=== PATIENT | female | born 1960 | race Caucasian/White ===

== ENCOUNTER 2019-10-23 09:25 | Outpatient (CLI) | payer MEDICARE, OTHER, SELFPAY ==
[2019-11-06 15:49] LABS: Miscellaneous Test See Scanned Lab Rpt
== END 2019-10-23 09:26 | disposition home or self-care (01) ==
LOC: ONCMED 09:30
PROVIDERS: Visit Provider Nurse Practitioner
DX: C56.1 Malignant neoplasm of right ovary (principal)
CPT/HCPCS: 36415

== ENCOUNTER 2019-11-01 12:22 | Outpatient (CLI) | payer MEDICARE, OTHER, SELFPAY ==
[2019-11-01 14:23] LABS: Basophils # 0.1 10^3/uL (0.0-0.1); Basophils % 0.7 %; Eosinophils # 0.1 10^3/uL (0.0-0.8); Eosinophils % 1.6 %; Hematocrit 36.1 % (37.0-47.0); Hemoglobin 11.3 g/dL (11.5-15.3); Lymphocytes # 1.7 10^3/uL (0.8-4.8); Lymphocytes % 22.6 %; Mean Corpuscular HGB Conc 31.3 g/dL (30.0-36.0); Mean Corpuscular Hemoglobin 25.7 pg (28.0-34.0); Mean Platelet Volume 9.6 fL (7.4-10.4); Monocytes # 0.6 10^3/uL (0.2-0.9); Monocytes % 7.9 %; Neutrophils # 4.9 10^3/uL (1.8-7.7); Neutrophils % 66.8 %; Nucleated Red Blood Cells % 0 %; Platelet Count 238 10^3/cmm (130-400); Red Cell Distribution Width 14.8 % (12.1-15.1); White Blood Count 7.4 10^3/uL (4.0-10.0)
[2019-11-01 14:32] LABS: Alanine Aminotransferase 8 U/L (0-33); Albumin Level 4.5 g/dL (3.5-5.2); Alkaline Phosphatase 93 IU/L (35-105); Anion Gap 14.2 (5-19); Aspartate Amino Transferase 15 U/L (0-32); Blood Urea Nitrogen 10 mg/dL (8-23); Calcium 9.7 mg/Dl (8.8-10.2); Carbon Dioxide 28 mmol/L (22-29); Chloride 94 mmol/L (98-107); Globulin 3.1 g/dL (1.3-4.6); Glomerular Filtration Rate 72.9 mL/min (90-130); Glucose 88 mg/dL (74-106); Potassium 4.2 mmol/L (3.5-5.1); Sodium 132 mmol/L (136-145); Total Bilirubin 0.2 mg/dL (0.15-1.2); Total Protein 7.6 g/dL (6.6-8.7)
[2019-11-02 02:19] LABS: CA 125 28.7 U/mL (0-35)
--- NOTE | 2019-11-05 10:42 | ONC FU_ITS ---
Dr. Lynne Patient Follow-Up Note Patient: Nisreen Carrasco V Unit #: [id number]: 1960 Dicatated By: Ravi Lynne M.D.Date of Visit:Nov 01, 2019 Onc Med Follow-up/Prog Note Chief Complaint: Ovarian cancer History of Present Illness: This is a 59 year-old woman with recurrent ovarian cancer. She had optimal resection with her initial surgery back in May 2003. She had documented recurrence in July 2008, nearly 5 years after completion of adjuvant chemotherapy with 6 cycles of carboplatin/Taxol. She was retreated at that time with carboplatin/Taxol chemotherapy, but in combination with Avastin. Treatment was stopped after 4 cycles because of worsening neuropathy, but she did have a very good clinical response with normalization of the CA-125 level. She was then followed on observation. She did well until July 2012 when she presented with small bowel obstruction. Her Ca-125 level at that point had not increased and the obstruction initially did improve with conservative management. Ultimately, though, she was confirmed to have disease recurrence in the abdomen. She underwent surgery at [facility] in October 2012. At laparotomy there were extensive adhesions in the abdomen, but there was recurrent tumor in the right mid abdomen and right upper quadrant. It was involving the cecum, the mesocolon, and the small bowel mesentery in a multiple twisted mass. There also was periaortic juanita involvement. She underwent right hemicolectomy and primary anastamosis of the bowel with complete resection of the mass. 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 She had gradual recovery from that procedure. In February 2013 she restarted chemotherapy with carboplatin in combination with gemcitabine. She experienced a significant hypersensitivity reaction to the carboplatin with the third cycle of treatment. She then continued chemotherapy with single agent gemcitabine. She experienced significant fatigue and myelosuppression with gemcitabine, even at a reduced dose level. She did not tolerate an attempt at dose escalation. She had some ongoing GI symptoms during this time, but no documented disease progression. She had a followup visit with Dr. David in January 2014. Her disease at that time appeared stable, and it was recommended that she stop chemotherapy again and just go back on observation. By May 2015 she was having significantly more abdominal pain and repeat CT abdomen/pelvis at that point was highly suspicious for recurrent metastatic disease at the site of the ileocolic anastomosis. That study showed no obvious metastatic involvement in the liver and no ascites. In June 2015 she restarted chemotherapy with weekly paclitaxel. She initially was tolerating it pretty well on a day 1/day 8 schedule every 3 weeks. She had presented at day 15 of her third cycle with severe abdominal pain and nausea. Repeat CT scan showed increasing soft tissue at the ileocolic anastomosis. There was a large amount of fecal material proximal to that site, and an area of stenosis was suspected. She did improve, though, with conservative management, and she subsequently was able to continue chemotherapy with weekly paclitaxel. As of November 2015 she had completed 7 cycles of treatment. Her chemotherapy was put on hold after her cycle 8 day 1 treatment due to diarrhea and increased abdominal pain. Abdominal x-rays showed just nonspecific gas pattern in the left abdomen. She had restaging CT abdomen/pelvis again on 01/13/2016. It showed no obstruction and no evidence of disease progression. There was no lymphadenopathy or ascites noted. Her symptoms had subsequently improved, and she did then proceed with her 9th cycle of chemotherapy. Beginning with cycle 10, I did have her change to a day 1/day 15 schedule. She had subsequently tolerated it much better. As of her follow-up visit on 08/06/2016, she appeared stable clinically, and at that point she continued with her 16th cycle of treatment. Her day 15 treatment with that cycle was not administered. She continued treatment with cycle 18 day 1 on 10/01/2016. On 10/06/2016 she was admitted to the hospital with pneumonia. CT pulmonary angiogram at that time showed no evidence of pulmonary emboli. There were widespread tree-in-bud pulmonary parenchymal nodularities and there was evidence of underlying chronic emphysema. There was new hilar or mediastinal lymphadenopathy noted, possibly reactive or neoplastic. Also noted was a superior segment left lower lobe pulmonary nodule measuring 8.4 mm. She did improve on antibiotic therapy, and she was discharged home on 10/10/2016. She had quit smoking just prior to the hospitalization. She did not receive day 15 treatment with that cycle. During subsequent follow-up, I opted to keep her chemotherapy on hold, as her disease had been very stable. Restaging CT scans of the chest, abdomen, and pelvis on 04/28/2017 showed resolved hilar and mediastinal adenopathy and resolved left lower lobe pulmonary nodule. There was stable appearance of the ileocolic anastomosis. There was no evidence of disease progression. Her other medical illnesses include hypertension, hypercholesterolemia and gastroesophageal reflux disease. She also has chronic obstructive pulmonary disease and she had a pretty severe episode of pneumonia in December 2008. She had stopped smoking following her hospitalization in September. 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 Other surgeries have been limited to tonsillectomy and tubal ligation. INTERIM HISTORY: Restaging CT scans of the chest, abdomen, and pelvis on 11/16/2018 showed unchanged medial middle lobe parenchymal opacity measuring 8-9 mm. Lingular and anterior left lower lobe subsegmental atelectasis and/or scarring also appeared unchanged. There was no evidence of disease progression in the chest, abdomen, or pelvis. In February 2019 she had presented with new onset of swelling in the right leg. Venous Doppler of the right leg on 03/09/2019 showed partially occlusive deep vein thrombosis of the superficial femoral vein with thrombus noted to extend into the greater saphenous vein. She began on anticoagulation with apixaban. Restaging CT scans on 03/22/2019 showed stable 8-9 mm pulmonary nodule in the right middle lobe. Right hilar and infrahilar hilar lymph nodes also appeared stable. Moderate right hydronephrosis with right ureterectasis appeared to be new. Slightly prominent right inguinal lymph nodes appeared unchanged. Overall, there was no evidence of disease progression in the chest, abdomen, or pelvis. She continued on observation/expectant management. In April 2019 a next generation sequencing study was performed on the specimen from her surgical resection in October 2012. It showed presence of a BRCA1 mutation, presumed to be somatic, as her original germline BRCA testing was negative. There were no other actionable mutations identified. She had come in last week for a scheduled port flushed. At that time she reported increased abdominal pain, mainly in the right lower quadrant and right groin area. It was noted that her CA-125 level, though still in normal range, had been increasing. At that point it was up to 14.0 U/mL compared to 8.6 U/mL in October 2018. Repeat CT abdomen/pelvis on 06/22/2019 showed enlarging soft tissue mass in the right side of the pelvis measuring 3.5 cm. This was noted to be in the area of surgical clips from her prior hysterectomy, and the appearance was felt to be consistent with local recurrence or metastatic adenopathy. The mass was noted to be adjacent to and possibly invading the psoas muscle. There was increasing hydronephrosis of the right kidney. She was referred to Dr. David. On 07/18/2019 she underwent exploratory laparotomy with extensive adhesive lysis and extensive retroperitoneal exploration and debulking of right pelvic/psoas muscle tumor. The tumor was noted to obstruct the right ureter, and the procedure included placement of a right ureteral stent. Pathology showed high-grade carcinoma which was PAX-8 and WT-1 positive. She is seen for a follow-up visit. As yet she has not started any further treatment for the ovarian cancer, as she is still recovering from the surgery. She has not been feeling good. She complains that she has no energy. Activity remains very limited. ECOG score is 3. Her appetite is variable. She has not had fever, but she has had bad chills. She also reports having bad hot flashes. She says she has too much pain to do anything. She says her neuropathy has been bothering her really bad. She also continues to have pain with urination, and she says she hurts tremendously inside her belly. She also has pain in the right lower back area. She had been started on antibiotic for urinary tract infection, and that recently was changed to amoxicillin based on culture results, which showed Enterococcus faecalis. Medications: Amoxicillin 2 Capsule (of 500 mg) Oral b.i.d. for 7 days, Ativan 1 mg (of 1 mg) Tablet Oral at bedtime PRN, Duragesic-100 1 (100 mcg) Patch 72 Hr Transdermal q 3 days, Duragesic-25 1 (50 mcg/hr) Patch 72 Hr Transdermal q 72 hours, Enalapril Maleate 1 (20 mg) Tablet Oral b.i.d., Fluconazole 1 Tablet Oral daily on Every Other Day for 4 days, Gabapentin 1 Capsule (of 300 mg) Oral b.i.d., Lactulose Solution Oral PRN, Levothroid 1 (50 mcg) Tablet Oral daily, MiraLax Pack Oral daily, Mucinex Maximum Strength 1 Tablet (of 1200 mg) Tablet SR 12 HR Oral b.i.d. PRN, NexIUM 1 (40 mg) Capsule Delayed Release Oral b.i.d., OxyCODONE HCl 1 (20 mg) Tablet Oral four times a day PRN, Proventil HFA Aerosol, solution Inhalation PRN, TRAZADONE 1 (100 mg) Tablet Oral at bedtime, Venlafaxine HCl 1 (150 mg) Capsule SR 24 HR Oral daily, Xarelto 1 Tablet (of 10 mg) Oral daily Allergies: Carboplatin Review of Systems: Constitutional - She has no energy, and her activity is very limited. Appetite is variable. She has not had fever. She has bad hot flashes and sweating. ECOG score is 3, ENMT - She has sinus congestion/drainage. No mouth sores. No sore throat or difficulty swallowing, Hematologic/Lymphatic - She bruises easily, Respiratory - She has shortness of breath with activity. She is using oxygen at night. No cough. No pleuritic pain or hemoptysis, Cardiovascular - No angina pain. No palpitations, Gastrointestinal - No nausea or vomiting. Her acid reflux is managed with Nexium. She has abdominal pain and she has constipation. No blood in the stool or black stools, Genitourinary (F) - She has pain with urination. She has tremendous pain inside her belly, and she has pain in her right lower back area, Musculoskeletal - She also has chronic back pain, Integumentary - No skin complications, Neurologic - No headache. She sometimes has dizziness. Her neuropathy pain has been bad, Psychiatric - She has anxiety and depression. She has difficulty sleeping. Vital Signs: Performed on Nov 01, 2019 12:41 Height - 67.00 in Weight - 131.0 lbs (LOW) BSA - 1.69 sq.m BMI - 20.52 Temperature - 97.9 F (LOW) Pulse - 82 /min Respiration - 20 /min BP - 156/88 mm(hg) (HIGH) O2 Sat - 96 % Pain - 8 Physical Examination: Constitutional - She looks weaker, and she is in obvious discomfort, Eyes - Sclerae nonicteric. Conjunctivae clear, ENMT - There are no lesions noted in the oral cavity, Hematologic/Lymphatic - No cervical, clavicular, or axillary adenopathy, Respiratory - Lungs sound clear with diminished air movement bilaterally, Cardiovascular - Heart rhythm is regular. There is no murmur, gallop, or rub noted, Abdomen - Mildly distended. She has generalized abdominal tenderness. Liver and spleen are not enlarged. There is no abdominal mass or ascites noted. There is no inguinal adenopathy, Back/Spine - There is tenderness in the area of the costovertebral angle on the right side, Extremities - No edema, Neurologic - No focal neurologic deficits noted. Lab/Imaging: Test performed on Nov 01, 2019 13:45 Glucose 88 mg/dL BUN 10 mg/dL Creatinine 0.8 mg/dL Cr Clearance (Est) 69.27 mL/min Sodium 132 mmol/L Potassium 4.2 mmol/L Chloride 94 mmol/L CO2 28 mmol/L Calcium 9.7 mg/dL Protein, Total 7.6 g/dL Albumin 4.5 g/dL Bilirubin, Total 0.2 mg/dL Alkaline Phosphatase 93 IU/L AST (SGOT) 15 IU/L ALT (SGPT) 8 IU/L WBC 7.4 10^9/L RBC 4.40 10^12/L HGB 11.3 g/dL HCT 36.1 % MCV 82.0 fl MCH 25.7 pg MCHC 31.3 g/dL RDW 14.8 % Platelet Count 238 10^9/L MPV 9.6 fL Neutrophils (Gran) 4.9 10^9/L Lymphocytes 1.7 10^9/L Monocytes 0.6 10^9/L Eosinophils 0.1 10^9/L Basophils 0.1 10^9/L Manual Lymphocytes 22.6 % Manual Monocytes 7.9 % Manual Eosinophils 1.6 % Manual Basophils 0.7 % NRBCs 0.0 /100 WBC CA 125 28.7 Units/mL Impression: 1. The patient has recurrent ovarian cancer. By next generation sequencing her tumor was noted to harbor a BRCA1 mutation, presumed somatic, as her original testing for germline BRCA was negative. Her tumor also was tested and found to be MSI stable with intact mismatch repair proteins. 2. She had restarted chemotherapy with carboplatin/gemcitabine in February 2013 following a surgical debulking procedure. Her treatment was subsequently modified to single agent gemcitabine as a result of a hypersensitivity reaction to carboplatin. She did appear to have some response to the chemotherapy. As of January 2014 her disease was felt to be stable, and she was then observed off treatment. 3. In May 2015 she restarted chemotherapy with weekly paclitaxel. Following her cycle 18 treatment on 09/17/2016 she had another hospital admission for pneumonia. As her disease had been stable and her performance status had been declining, her chemotherapy at that point was put on hold. Her other medical illnesses include: 4. Hypertension. 5. Hyperlipidemia. 6. GERD. 7. COPD. 8. Degenerative disease of the spine with chronic back pain. 9. Chronic anxiety/depression. 10. She has nicotine dependence (cigarettes). During follow-up she has continued to have multiple chronic complaints, including abdominal pain and constipation along with fatigue, insomnia, back pain, and neuropathy from her previous chemotherapy. She also has significant underlying COPD, and she has been having chronic cystitis symptoms. In February 2019 she presented with swelling in the right leg, she was found to have deep vein thrombosis by venous Doppler. She has since then been on anticoagulation with apixaban. Her restaging CT scans in March 2019 showed no obvious disease progression in the chest, abdomen, or pelvis, but there was evidence of new moderate right hydronephrosis with dilatation of the right proximal ureter. She then presented recently with increased pain in the right lower quadrant of the abdomen and right groin area. There has been a gradual increase in her CA-125 level. Her repeat CT abdomen/pelvis on 06/22/2019 shows a 3.5 cm soft tissue mass in the right pelvis suspicious for local recurrence or lymphadenopathy, and there is also increasing right hydronephrosis. Overall, the findings were consistent with progression of the ovarian cancer. She was referred to Dr. David and on 07/18/2019 she underwent exploratory laparotomy with a decent lysis and with debulking of the right pelvic tumor. He tumor was obstructing the right ureter, and the procedure also included placement of a right ureteral stent. She has been showing gradual recovery from the surgery. At this point she continues have very limited activity. She is having significant pain, some component of which is likely related to a urinary tract infection. That issue is further complicated by the fact that she does have a ureteral stent in place. 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 Plan: She will continue amoxicillin for the urinary tract infection, and she also will continue empiric treatment with fluconazole. Dr. David's office will be contacted regarding further management for the ureteral stent. I am going to look into the possibility of transitioning her from gabapentin to Lyrica for the neuropathy pain. In the meantime, she will need to continue her regular pain regimen with fentanyl and immediate release oxycodone. Signed By: Ravi Lynne M.D. <<Signature on File>>
== END 2019-11-01 12:23 | disposition home or self-care (01) ==
LOC: ONCMED 12:22
PROVIDERS: Visit Provider Internal Medicine Medical Oncology
DX: C56.1 Malignant neoplasm of right ovary (principal); C79.89 Secondary malignant neoplasm of other specified sites; Z92.21 Personal history of antineoplastic chemotherapy; Z90.49 Acquired absence of other specified parts of digestive tract; Z87.01 Personal history of pneumonia (recurrent); I10 Essential (primary) hypertension; E78.00 Pure hypercholesterolemia, unspecified; K21.9 Gastro-esophageal reflux disease without esophagitis; J44.9 Chronic obstructive pulmonary disease, unspecified; G89.29 Other chronic pain; M19.90 Unspecified osteoarthritis, unspecified site; F41.8 Other specified anxiety disorders; N39.0 Urinary tract infection, site not specified; B95.2 Enterococcus as the cause of diseases classified elsewhere; E78.5 Hyperlipidemia, unspecified; F17.210 Nicotine dependence, cigarettes, uncomplicated; G89.3 Neoplasm related pain (acute) (chronic); G62.0 Drug-induced polyneuropathy; T45.1X5S Adverse effect of antineoplastic and immunosuppressive drugs, sequela; Z79.891 Long term (current) use of opiate analgesic; Z79.01 Long term (current) use of anticoagulants; Z79.899 Other long term (current) drug therapy; Z90.710 Acquired absence of both cervix and uterus; Z86.718 Personal history of other venous thrombosis and embolism; Z96.0 Presence of urogenital implants
CPT/HCPCS: 36591; 80053; 85025; 86304; 99214

== ENCOUNTER 2019-11-29 08:19 | Outpatient (CLI) | payer MEDICARE, OTHER, SELFPAY ==
--- NOTE | 2019-11-29 09:00 | XRR_ITS ---
PROCEDURE INFORMATION: Exam: XR Abdomen, 1 View Exam date and time: 11/29/2019 8:49 AM Age: 59 years old Clinical indication: Abd pain; Ureteral obstruction TECHNIQUE: Imaging protocol: XR of the abdomen. Views: Frontal supine view of the abdomen. 1 View. COMPARISON: XR ABDOMEN 08/23/2019 2:40 PM FINDINGS: Gastrointestinal tract: No dilated gas-filled loops of bowel. Organs: A right double-J stent is present with the proximal pigtail in the region of the right renal pelvis and the distal pigtail in the urinary bladder. There are 2 calcific densities projecting over the right kidney compatible with nephrolithiasis. The largest measures 5-6 mm in size not accounting for magnification. The left kidney is obscured by intestinal contents. Vasculature: There are retroperitoneal and bilateral pelvic surgical clips, perhaps from a prior lymph node dissection. Bones/joints: Degenerative changes present in the lower lumbar spine. XR/XR KUB [id number] IMPRESSION: 1. Right nephrolithiasis. 2. Right double-J stent as described.
== END 2019-11-29 08:20 | disposition home or self-care (01) ==
PROVIDERS: PCP Internal Medicine Medical Oncology; Visit Provider Urology
DX: N13.5 Crossing vessel and stricture of ureter without hydronephrosis (principal); N20.0 Calculus of kidney
CPT/HCPCS: 74018; 81001

== ENCOUNTER 2019-12-04 11:53 | Day surgery (SDC) | payer MEDICARE, OTHER, SELFPAY ==
[2019-12-04] VITALS (9 sets, daily range): BP systolic 116–162; BP diastolic 74–107; PULSE 78–95; RESP 14–20; TEMP 36.6–37.1; O2SAT 90–100; BMI 20.8
--- NOTE | 2019-12-04 | SCC_ITS ---
Procedure Done: Cystoscopy, removal of right ureteral stent, right ureteroscopy, replacement of right ureteral stent 34.2 seconds of fluoroscopic guidance, for a cumulative dose of 5.55 mGy, was provided to Dr. Cooper by the radiology department. C-arm images of the abdomen were saved for the patient's permanent record. [facility]
--- NOTE | 2019-12-04 11:54 | SC_ITS ---
WS: [id number] [facility] REASON FOR EXAM: Right ureteroscopy FINDINGS: RM images show a catheter in the region of the kidney transversing the ureter down to the b ladder. SC/[facility] IMPRESSION: C-arm images show the catheter in the urinary bladder coronal and itself and is seen in good position in the ureter.
[2019-12-04] MEDS: sodium chloride 0.9% 1,000 ML 30 ML IV (12:00)
--- NOTE | 2019-12-04 12:39 | ANES.PREANE2 ---
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 Proposed Procedure: Operation Date: 12/04/19 13:50 Proposed Procedures p Cystoscopy 93279 N13.30 N13.5(Not Applicable) - MD taqueria [place]ina Ureteral Stent Removal(Right) - MD taqueria [place]ina Flexible Ureteroscopy(Not Applicable) - MD taqueria [place] Ureteral Stent Placement(Not Applicable) - Jake Cooper MD Last intake: Intake Last Liquid Date 12/03/19 Last Liquid Time 18:00 Last Solid Date 12/03/19 Last Solid Time 18:00 Social: Social History: Tobacco and No alcohol Exam: Pre-Anes Outpt Exam: alert, oriented x 3, clear to auscultation bilaterally and regular rate & rhythm Airway: Submandibular: WNL Cervical ROM: WNL MP: 2 Dentition: Other (very poor teeth) History/ROS: No significant history except as noted Pulmonary: Pulmonary: COPD, Cough and NICOLAS Comments: O2 at night CV/HEM: CV/HEM: HTN : Comments: tumor obstructing Hepatic: Hepatic: None reported GI: GI: GERD (controlled) Metabolic: Metabolic: Thyroid Musc/skel: Musc/skel: Lower Back Pain and OA/DJD Neuropsych: Neuropsych: Anxiety and Depression Anesthetic Plan: ASA status: 3 Anesthesia: Anesthesia Evaluation and General Risk of > 500 ml blood loss (7ml/kg in children): No PFSH Anesthesia PFSH: Medical History Extrinsic ureteral obstruction Hydronephrosis, right Ovarian cancer on right Pelvic pain in female Recurrent UTI Secondary malignant neoplasm of other specified sites Surgical History History of hysterectomy with bilateral oophorectomy History of right hemicolectomy Family History Other CAD (coronary artery disease) Cancer Hypertension Social History Smoking and tobacco status: current every day smoker Alcohol intake: never Adopted: No Caregiver/support person: No Lives independently: No Household members: spouse Marital status: Current occupational status: disabled History of recent travel: No Female Reproductive History: Date of last menstrual period: 12/01/19 Data Anesthesia Cardiac Studies: No Data to Display
--- NOTE | 2019-12-04 14:35 | W.PM.OPSUD ---
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 Since resected. PLANNED PROCEDURE: Operation Date: 12/04/19 13:50 Proposed Procedures p Cystoscopy 04648 N13.30 N13.5(Not Applicable) - Jake Cooper MD s Ureteral Stent Removal(Right) - Jake Cooper MD s Flexible Ureteroscopy(Not Applicable) - Jake Cooper MD s Ureteral Stent Placement(Not Applicable) - Jake Cooper MD
[2019-12-04] MEDS: levofloxacin-dextrose 5 % 500 MG/100 ML PREMIX 100 MG IV (14:38)
--- NOTE | 2019-12-04 15:30 | P.OP_ITS ---
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 At time of incomplete resection of the tumor I delayed nephrostogram demonstrating obstruction post resection and a antegrade stent was placed. I was consulted for further evaluation of the stent. She has had a lot of discomfort that she relates to the stent. We reviewed the option of converting to a nephrostomy tube, removal of the stent if the ureter looked healthy enough on ureteroscopy, etc. Procedure: After routine preoperative evaluation examination and obtaining of informed consent she was taken to the operating suite on 12/04/2019 where general anesthesia was administered without difficulty after appropriate timeout was performed, SCDs confirmed to be functioning, preoperative antibiotics administered, beta-priya protocol confirmed. Prepped and draped in the usual sterile fashion in dorsolithotomy position pain careful attention to avoiding pressure points. The 21 [place] cystoscope with 30 degree lens was introduced into the urethral meatus and advanced into the bladder under videoscopy. The bladder was systematically examined. The stent was not encrusted. A flexible tip guidewire was then advanced up the right ureter next to the stent but could not be advanced beyond about the level of the pelvic vessels. Several attempts were made unsuccessfully. A zip wire/glide wire was then utilized with the same result. The distal aspect of the stent was then grasped and removed just to the outside of the urethral meatus and a flexible tip guidewire was then advanced up the stent easily into the renal pelvis. The stent was removed. A flexible ureterorenoscope was then advanced over the guidewire and at the area previously described as the portion of the ureter with involvement of the tumor the scope could not easily be advanced. There was significant inflammatory change in this area. Visualization was less than perfect. It did become clear though quickly that removal of the stent did not appear to be an acceptable option. The ureteroscope was then removed off the guidewire and the cystoscope backloaded over the guidewire. A 6 [place] multilength 22 x 30 stent was advanced over the guidewire through the cystoscope and appropriate position is confirmed via fluoroscopy and cystoscopy The bladder was drained after confirming the stent was functioning well. She tolerated procedure well without complications. Was awakened in the operating room and returned to the recovery in stable condition.
== END 2019-12-04 16:45 | disposition home or self-care (01) ==
PROVIDERS: PCP Internal Medicine Medical Oncology; Visit Provider Urology
PROC: 0TJB8ZZ Inspection of Bladder, Via Natural or Artificial Opening Endoscopic (ICD-10-PCS; CPT 52000; principal; 2019-12-04 13:50)
PROC: (CPT 52310; 2019-12-04 13:50)
PROC: 0TJ98ZZ Inspection of Ureter, Via Natural or Artificial Opening Endoscopic (ICD-10-PCS; CPT 52351; 2019-12-04 13:50)
PROC: (CPT 50605; 2019-12-04 13:50)
DX: N20.1 Calculus of ureter (principal); Z82.49 Family history of ischemic heart disease and other diseases of the circulatory system; F17.210 Nicotine dependence, cigarettes, uncomplicated; J44.9 Chronic obstructive pulmonary disease, unspecified; I10 Essential (primary) hypertension; M19.90 Unspecified osteoarthritis, unspecified site; K21.9 Gastro-esophageal reflux disease without esophagitis
CPT/HCPCS: 52332; 52351; 12345; 76000; C2625; J1956; J2001; J2405; J2704; J3010; J7030

== ENCOUNTER 2019-12-12 08:25 | Outpatient (RCR) | payer MEDICARE, OTHER, SELFPAY ==
[2019-11-28] MEDS: alteplase 1 mg/mL SDV 2 mL 2 MG IV (14:51)
[2019-11-28 15:13] LABS: Basophils # 0.1 10^3/uL (0.0-0.1); Basophils % 0.7 %; Eosinophils # 0.2 10^3/uL (0.0-0.8); Eosinophils % 2.4 %; Hematocrit 38.1 % (37.0-47.0); Hemoglobin 11.8 g/dL (11.5-15.3); Lymphocytes # 2.3 10^3/uL (0.8-4.8); Lymphocytes % 27.2 %; Mean Corpuscular Hemoglobin 25.7 pg (28.0-34.0); Mean Platelet Volume 9.8 fL (7.4-10.4); Monocytes # 0.7 10^3/uL (0.2-0.9); Monocytes % 7.9 %; Neutrophils # 5.1 10^3/uL (1.8-7.7); Neutrophils % 61.6 %; Nucleated Red Blood Cells % 0 %; Platelet Count 237 10^3/cmm (130-400); Red Blood Count 4.59 10^6/uL (4.1-5.3); Red Cell Distribution Width 14.8 % (12.1-15.1); White Blood Count 8.3 10^3/uL (4.0-10.0)
[2019-11-28 15:30] LABS: Alanine Aminotransferase 8 U/L (0-33); Alkaline Phosphatase 88 IU/L (35-105); Anion Gap 17.2 (5-19); Aspartate Amino Transferase 16 U/L (0-32); Blood Urea Nitrogen 9 mg/dL (8-23); Calcium 9.6 mg/dL (8.5-10.5); Carbon Dioxide 28 mmol/L (22-29); Chloride 91 mmol/L (98-107); Globulin 3.6 g/dL (1.3-4.6); Glomerular Filtration Rate 85.1 mL/min (90-130); Glucose 113 mg/dL (65-115); Potassium 4.2 mmol/L (3.5-5.1); Sodium 132 mmol/L (136-145); Total Bilirubin 0.2 mg/dL (0.15-1.2); Total Protein 7.6 g/dL (6.6-8.7)
--- NOTE | 2019-11-28 15:48 | ONC FU_ITS ---
[facility] Patient Note Patient: Nisreen Carrasco V Unit #: [id number]: [id number] Dictated By: Daniella JacobsenDate of Visit: Nov 28, 2019 Onc MED Follow-Up/Prog Note Chief Complaint: Ovarian cancer History of Present Illness: Mrs Carrasco is a 59 year-old woman with recurrent ovarian cancer. She had optimal resection with her initial surgery back in May 2003. She had documented recurrence in July 2008, nearly 5 years after completion of adjuvant chemotherapy with 6 cycles of carboplatin/Taxol. She was retreated at that time with carboplatin/Taxol chemotherapy, but in combination with Avastin. Treatment was stopped after 4 cycles because of worsening neuropathy, but she did have a very good clinical response with normalization of the CA-125 level. She was then followed on observation. She did well until July 2012 when she presented with small bowel obstruction. Her Ca-125 level at that point had not increased and the obstruction initially did improve with conservative management. Ultimately, though, she was confirmed to have disease recurrence in the abdomen. She underwent surgery at [facility] in October 2012. At laparotomy there were extensive adhesions in the abdomen, but there was recurrent tumor in the right mid abdomen and right upper quadrant. It was involving the cecum, the mesocolon, and the small bowel mesentery in a multiple twisted mass. There also was periaortic juanita involvement. She underwent right hemicolectomy and primary anastamosis of the bowel with complete resection of the mass. 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 She had gradual recovery from that procedure. In February 2013 she restarted chemotherapy with carboplatin in combination with gemcitabine. She experienced a significant hypersensitivity reaction to the carboplatin with the third cycle of treatment. She then continued chemotherapy with single agent gemcitabine. She experienced significant fatigue and myelosuppression with gemcitabine, even at a reduced dose level. She did not tolerate an attempt at dose escalation. She had some ongoing GI symptoms during this time, but no documented disease progression. She had a followup visit with Dr. David in January 2014. Her disease at that time appeared stable, and it was recommended that she stop chemotherapy again and just go back on observation. By May 2015 she was having significantly more abdominal pain and repeat CT abdomen/pelvis at that point was highly suspicious for recurrent metastatic disease at the site of the ileocolic anastomosis. That study showed no obvious metastatic involvement in the liver and no ascites. In June 2015 she restarted chemotherapy with weekly paclitaxel. She initially was tolerating it pretty well on a day 1/day 8 schedule every 3 weeks. She had presented at day 15 of her third cycle with severe abdominal pain and nausea. Repeat CT scan showed increasing soft tissue at the ileocolic anastomosis. There was a large amount of fecal material proximal to that site, and an area of stenosis was suspected. She did improve, though, with conservative management, and she subsequently was able to continue chemotherapy with weekly paclitaxel. As of November 2015 she had completed 7 cycles of treatment. Her chemotherapy was put on hold after her cycle 8 day 1 treatment due to diarrhea and increased abdominal pain. Abdominal x-rays showed just nonspecific gas pattern in the left abdomen. She had restaging CT abdomen/pelvis again on 01/13/2016. It showed no obstruction and no evidence of disease progression. There was no lymphadenopathy or ascites noted. Her symptoms had subsequently improved, and she did then proceed with her 9th cycle of chemotherapy. Beginning with cycle 10, I did have her change to a day 1/day 15 schedule. She had subsequently tolerated it much better. As of her follow-up visit on 08/06/2016, she appeared stable clinically, and at that point she continued with her 16th cycle of treatment. Her day 15 treatment with that cycle was not administered. She continued treatment with cycle 18 day 1 on 10/01/2016. On 10/06/2016 she was admitted to the hospital with pneumonia. CT pulmonary angiogram at that time showed no evidence of pulmonary emboli. There were widespread tree-in-bud pulmonary parenchymal nodularities and there was evidence of underlying chronic emphysema. There was new hilar or mediastinal lymphadenopathy noted, possibly reactive or neoplastic. Also noted was a superior segment left lower lobe pulmonary nodule measuring 8.4 mm. She did improve on antibiotic therapy, and she was discharged home on 10/10/2016. She had quit smoking just prior to the hospitalization. She did not receive day 15 treatment with that cycle. During subsequent follow-up, I opted to keep her chemotherapy on hold, as her disease had been very stable. Restaging CT scans of the chest, abdomen, and pelvis on 04/28/2017 showed resolved hilar and mediastinal adenopathy and resolved left lower lobe pulmonary nodule. There was stable appearance of the ileocolic anastomosis. There was no evidence of disease progression. Her other medical illnesses include hypertension, hypercholesterolemia and gastroesophageal reflux disease. She also has chronic obstructive pulmonary disease and she had a pretty severe episode of pneumonia in December 2008. She had stopped smoking following her hospitalization in September. 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 Other surgeries have been limited to tonsillectomy and tubal ligation. INTERIM HISTORY: Restaging CT scans of the chest, abdomen, and pelvis on 11/16/2018 showed unchanged medial middle lobe parenchymal opacity measuring 8-9 mm. Lingular and anterior left lower lobe subsegmental atelectasis and/or scarring also appeared unchanged. There was no evidence of disease progression in the chest, abdomen, or pelvis. In February 2019 she had presented with new onset of swelling in the right leg. Venous Doppler of the right leg on 03/09/2019 showed partially occlusive deep vein thrombosis of the superficial femoral vein with thrombus noted to extend into the greater saphenous vein. She began on anticoagulation with apixaban. Restaging CT scans on 03/22/2019 showed stable 8-9 mm pulmonary nodule in the right middle lobe. Right hilar and infrahilar hilar lymph nodes also appeared stable. Moderate right hydronephrosis with right ureterectasis appeared to be new. Slightly prominent right inguinal lymph nodes appeared unchanged. Overall, there was no evidence of disease progression in the chest, abdomen, or pelvis. She continued on observation/expectant management. In April 2019 a next generation sequencing study was performed on the specimen from her surgical resection in October 2012. It showed presence of a BRCA1 mutation, presumed to be somatic, as her original germline BRCA testing was negative. There were no other actionable mutations identified. She had come in last week for a scheduled port flushed. At that time she reported increased abdominal pain, mainly in the right lower quadrant and right groin area. It was noted that her CA-125 level, though still in normal range, had been increasing. At that point it was up to 14.0 U/mL compared to 8.6 U/mL in October 2018. Repeat CT abdomen/pelvis on 06/22/2019 showed enlarging soft tissue mass in the right side of the pelvis measuring 3.5 cm. This was noted to be in the area of surgical clips from her prior hysterectomy, and the appearance was felt to be consistent with local recurrence or metastatic adenopathy. The mass was noted to be adjacent to and possibly invading the psoas muscle. There was increasing hydronephrosis of the right kidney. She was referred to Dr. David. On 07/18/2019 she underwent exploratory laparotomy with extensive adhesive lysis and extensive retroperitoneal exploration and debulking of right pelvic/psoas muscle tumor. The tumor was noted to obstruct the right ureter, and the procedure included placement of a right ureteral stent. Pathology showed high-grade carcinoma which was PAX-8 and WT-1 positive. Mrs Carrasco is here today for a follow-up visit and possible initiation of Lynparza. Maria E has not started any further treatment for the ovarian cancer, as she has still been recovering from the surgery. She had been started on antibiotic for urinary tract infection, and that recently was changed to amoxicillin based on culture results, which showed Enterococcus faecalis. She has had on going urinary tract infections symptoms despite being on the antibotic. She states she is currently on Macrobid. She states the urinary pain has gotten significantly worse, especially with urination. And she states that she feels that there is a little new fluid in her lower abdomen area which she attributes to the urinary stent. She states that the only position she can get in to get any comfort relief now is lying down sometimes that does not even help. She continues to have chronic pain otherwise. She states that she does not feel her current pain medication is relieving her symptoms. She states overall everything just feels worse. She is had some intermittent chills and undocumented fever. She denies any nausea or vomiting. She has no improvement in her appetite. It continues to be very marginal. Her performance status continues to be very marginal as well. She states she does take a bowel medicine to have her bowels moving daily due to the narcotics, but is stable for her. She denies any mouth sores or trouble swallowing. She states she is so uncomfortable from the stent that it is hard to focus on anything else. She is agreeable to adjustments in her pain medication. Her ECOG is 3. Past Medical History: Chronic back pain (secondary to ruptured discs) Depression Peripheral neuropathy in 2008 Hypothyroidism in 2007 Chronic obstructive pulmonary disease in 2006 Anxiety in 2002 Coronary artery disease in 2002 Hypercholesterolemia in 2002 Hypertension in 2002 Gastroesophageal reflux disease in 2002 Past Surgical History: Stent placement in the ureter Flu vaccine in 2019 - left deltoid Prevnar 13 in 2019 - right deltoid Pneumovax in 2015 Flu vaccine in 2015 Right subclavian Port in 2015 Flu vaccine in 2014 Flu in 2013 COLONOSCOPY in 2007 Appendectomy in 2002 Hysterectomy in 2002 - WITH BSO PORT PLACEMENT in 2002 Tubal ligation in 1991 Tonsillectomy in 1964 Allergies: Carboplatin Medications: Ativan 1 mg (of 1 mg) Tablet Oral at bedtime PRN Duragesic-100 1 (100 mcg) Patch 72 Hr Transdermal q 3 days Duragesic-25 1 (50 mcg/hr) Patch 72 Hr Transdermal q 72 hours Enalapril Maleate 1 (20 mg) Tablet Oral b.i.d. Lactulose Solution Oral PRN Levothroid 1 (50 mcg) Tablet Oral daily Lyrica 1 Capsule (of 75 mg) Oral b.i.d. Macrobid 1 Capsule (of 100 mg) Oral b.i.d. MiraLax Pack Oral daily Mucinex Maximum Strength 1 Tablet (of 1200 mg) Tablet SR 12 HR Oral b.i.d. PRN NexIUM 1 (40 mg) Capsule Delayed Release Oral b.i.d. OxyCODONE HCl 1 (20 mg) Tablet Oral four times a day PRN Proventil HFA Aerosol, solution Inhalation PRN TRAZADONE 1 (100 mg) Tablet Oral at bedtime Venlafaxine HCl 1 (150 mg) Capsule SR 24 HR Oral daily Xarelto 1 Tablet (of 10 mg) Oral daily Family History: Ms. Carrasco's mother at age 59: cancer history consists of Breast cancer at age 28 while other medical history includes [place] at age 57 (cause of ). Ms. Carrasco's father is alive. Ms. Carrasco does not know if her maternal grandmother is alive. She does not know if her maternal grandfather is alive. Ms. Carrasco has 1 brother who is alive. Social History: Ms. Carrasco is and she is an on disability. She is an occasional smoker who has smoked 0.5 packs/day for 30 years. She is a former drinker. She has indicated exposure to the following products: cigarettes. Ms. Carrasco reports the following support systems: lives with spouse, significant other, family, or friends, lives in own house, supportive family/friends willing to assist with needs, and adequate transportation available for expected visits. Her diet consists of regular meals. She indicates her activity level as: daily activities. she smokes 5 cigaretter per day and has an e cigarette. Review Of Symptoms: Constitutional Denies any fever. States having nights sweats-chronic and stable. Allergic/Immunologic No reactions. Eyes Denies significant visual changes. No diplopia. No amaurosis. ENMT Denies changes in hearing, sore throat, mouth sores, difficulty or changes in swallowing ability, and/or sinus drainage. Hematologic/Lymphatic Denies easy bruising or bleeding. The patient denies any tender or palpable lymph nodes. Breasts Denies breast masses, nipple discharge, nipple inversion and pain. Respiratory non productive cough-stable and continued shortness of breath. Wears oxygen supplementation with activity. Cardiovascular Denies anginal chest pain, palpitations or orthopnea. Gastrointestinal Denies nausea, vomiting, diarrhea, GI bleeding. Has chronic constipation, has prescription laxative. Denies change in bowel habits and/or stool color, no heartburn or early satiety. Genitourinary (F) No hematuria, hesitancy, incontinence, vaginal bleeding, discharge or other problems with urination. Musculoskeletal Denies joint swelling or redness. No decreased range of motion. States having generalized joint pain-chronic. Current pain regimen is not controlling her pain. She states she thinks this is most likely related to the bladder symptoms and urinary stent Integumentary Denies chronic rashes, inflammation, ulcerations or skin changes. Neurologic Denies any no areas of focal weakness or numbness. Normal gait. No sensory problems.. back and leg pain-chronic and no worse than her normal. Psychiatric Denies worsening depression, denies any stephanie or mood swings. Vital Signs: Performed on Nov 28, 2019 12:47 Height - 67.00 in Weight - 133.6 lbs (HIGH) BSA - 1.70 sq.m BMI - 20.92 Temperature - 97.8 F (LOW) Pulse - 83 /min Respiration - 24 /min BP - 165/84 mm(hg) (HIGH) O2 Sat - 93 % (LOW) Pain - 8,2 - Ambulatory/capable of all self-care, unable to perform any work activities. Up and about more than 50% of waking hours. (ECOG) Physical Examination: Constitutional Alert, oriented, no acute distress. Skin pink, warm and dry. Frail in appearance but she is wearing make up. Head Normocephalic; atraumatic. Eyes Conjunctivae and sclerae are clear and without icterus. Pupils are reactive and equal. Neck Supple without masses or thyromegaly. No jugular venous distension. Hematologic/Lymphatic No petechiae or purpura. No tender or palpable lymph nodes in the cervical, supraclavicular areas. Chest Chest is symmetric without chest wall deformities. Venous access device insertion site is unremarkable. Abdomen Non-tender, non-distended, no masses, ascites. Back/Spine Non-tender to palpation. Extremities No visible deformities, no cyanosis, clubbing. No lower extremity edema. Musculoskeletal No tenderness or swelling, normal range of motion without obvious weakness. Integumentary No rashes or lesions. Neurologic No sensory or motor deficits, normal cerebellar function, normal gait. Psychiatric Alert and oriented times three. Coherent speech. Verbalizes understanding of our discussions today. Laboratory:Test performed on Nov 28, 2019 14:30 Sodium 132 mmol/L Potassium 4.2 mmol/L Chloride 91 mmol/L CO2 28 mmol/L Anion Gap 17.2 BUN 9 mg/dL Creatinine 0.7 mg/dL Cr Clearance (Est) 80.7400 mL/min eGFR 85.1 mL/min Glucose 113 mg/dL Calcium 9.6 mg/dL Protein, Total 7.6 g/dL Albumin 4.0 g/dL Globulin 3.6 g/dL Bilirubin, Total 0.2 mg/dL ALT (SGPT) 8 U/L AST (SGOT) 16 U/L Alkaline Phosphatase 88 IU/L WBC 8.3 10 3/uL RBC 4.59 10 6/uL HGB 11.8 g/dL HCT 38.1 % MCV 83.0 fL MCH 25.7 pg MCHC 31.0 g/dL RDW 14.8 % Platelet Count 237 10 3/cmm MPV 9.8 fL Neutrophils 5.1 10 3/uL Lymphocytes 2.3 10 3/uL Monocytes 0.7 10 3/uL Eosinophils 0.2 10 3/uL Basophils 0.1 10 3/uL Neutrophil % 61.6 % Lymphocyte % 27.2 % Monocyte % 7.9 % Eosinophil % 2.4 % Basophils % 0.7 % Test performed on Nov 01, 2019 13:45 Manual Lymphocytes 22.6 % Manual Monocytes 7.9 % Manual Eosinophils 1.6 % Manual Basophils 0.7 % NRBCs 0.0 /100 WBC CA 125 28.7 Units/mL Test performed on Aug 23, 2019 14:18 Ua Color YELLOW Ua Appearance SL HAZY Ua Glucose NORM Ua Bilirubin NEG Colored urine samples may result in false positive dipstick reactions. Ua Ketones NEG Ua Specific [place] 1.005 Ua Blood 2+ Ua pH 7 Ua Protein NEG Ua Nitrites NEG Ua Leukocyte Esterase TRACE Ua Micro: WBC 25-40 /hpf Urine Culture ORGANISM 1: ENTEROCOCCUS FAECALIS COLONY COUNT 10,000 - 20,000 ENTEROCOCCUS FAECALIS: REACTION AMPICILLIN <=2 S CIPROFLOXACIN <=1 S NITROFURANTOIN <=32 S PENICILLIN 2 S VANCOMYCIN 2 S LEVOFLOXACIN 2 S LINEZOLID 2 S DAPTOMYCIN 2 S CFU/ml Ua Micro: RBC 5-10 /hpf Ua Micro: Squam Epith Cells 0-4 /hpf Ua Micro: Bacteria TRACE Impression: 1. The patient has recurrent ovarian cancer. By next generation sequencing her tumor was noted to harbor a BRCA1 mutation, presumed somatic, as her original testing for germline BRCA was negative. Her tumor also was tested and found to be MSI stable with intact mismatch repair proteins. 2. She had restarted chemotherapy with carboplatin/gemcitabine in February 2013 following a surgical debulking procedure. Her treatment was subsequently modified to single agent gemcitabine as a result of a hypersensitivity reaction to carboplatin. She did appear to have some response to the chemotherapy. As of January 2014 her disease was felt to be stable, and she was then observed off treatment. 3. In May 2015 she restarted chemotherapy with weekly paclitaxel. Following her cycle 18 treatment on 09/17/2016 she had another hospital admission for pneumonia. As her disease had been stable and her performance status had been declining, her chemotherapy at that point was put on hold. Her other medical illnesses include: 4. Hypertension. 5. Hyperlipidemia. 6. GERD. 7. COPD. 8. Degenerative disease of the spine with chronic back pain. 9. Chronic anxiety/depression. 10. She has nicotine dependence (cigarettes). During follow-up she has continued to have multiple chronic complaints, including abdominal pain and constipation along with fatigue, insomnia, back pain, and neuropathy from her previous chemotherapy. She also has significant underlying COPD, and she has been having chronic cystitis symptoms. In February 2019 she presented with swelling in the right leg, she was found to have deep vein thrombosis by venous Doppler. She has since then been on anticoagulation with apixaban. Her restaging CT scans in March 2019 showed no obvious disease progression in the chest, abdomen, or pelvis, but there was evidence of new moderate right hydronephrosis with dilatation of the right proximal ureter. She then presented recently with increased pain in the right lower quadrant of the abdomen and right groin area. There has been a gradual increase in her CA-[address] abdomen/pelvis on 06/22/2019 shows a 3.5 cm soft tissue mass in the right pelvis suspicious for local recurrence or lymphadenopathy, and there is also increasing right hydronephrosis. Overall, the findings were consistent with progression of the ovarian cancer. She was referred to Dr. David and on 07/18/2019 she underwent exploratory laparotomy with a decent lysis and with debulking of the right pelvic tumor. He tumor was obstructing the right ureter, and the procedure also included placement of a right ureteral stent. She has been showing gradual recovery from the surgery. At this point she continues have very limited activity. She is having significant pain, some component of which is likely related to a urinary tract infection. That issue is further complicated by the fact that she does have a ureteral stent in place. 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 Plan: 1. She will see Dr Cooper tomorrow morning after she [place] [facility] [place] at 9 [place]. 2. Plan to start Lynparza next week-depending on outcome of the Dr Cooper visit tomorrow. 3. I requested baseline labs today to include cbc, CMP, CA 125. (Was 28.7 on May 01, 2020. And May 23, 2019 it was 12.4.) 4. We will try to bump her fentanyl to 200 mcg every 72 hours. She is currently 150 mcg. Subject to insurance approval. 5. We have increased her oxycodone 30 mg to 1 or 2 every 4-6 hours as needed pain with instructions to try to 4 times daily as needed for pain. 7. We have also increased her Lyrica to 150 twice daily. 8. We discussed that there have been multiple medication changes all of which could induce sedation. If she has trouble with sedation I have asked her to back off on the Lyrica to begin with and then the oxycodone or fentanyl as seems fit. 9. When she starts a Lynparza will have her do weekly labs. She does have a venous access device but traveling may be somewhat of an issue for her. We will set her up with in-home labs which will be done peripherally. She is aware and is agreeable at this time. 10. Follow-up will be determined after we see what the plan of care is after her visit with Dr. Cooper tomorrow. I would like to give her a few days to recover from the UTI symptoms if they are improved with removal of the stent. 11. I anticipate starting her Lynparza (olaparib) the week of December 04, 2019. 12. Side effects discussed with use of PARP inhibitors include peripheral edema, fatigue, headaches, dizziness UTI symptoms. Also we discussed that this may lower her blood counts including absolute neutrophil count, anemia, and thrombocytopenia. She may have some generalized body aches as well. Respiratory tract infections/nasopharyngitis/rhinitis/sinusitis were also noted. Chances of pulmonary embolism and venous thrombosis were both less than or equal to 1%. 13. Mrs. Carrasco was instructed to call us after her appointment Dr. santosorrambrosio and will determine when she can start the Lynparza and we will need follow-up labs. She verbalized understanding had no questions at this time. Signed By: Daniella Jacobsen-, [facility] Ravi Lynne MD <<Signature on File>>
[2019-11-28 16:47] LABS: Magnesium 1.8 mg/dL (1.7-2.3)
[2019-11-28 16:56] LABS: CA 125 30.4 U/mL (0-35)
--- NOTE | 2019-12-12 08:45 | CT_ITS ---
WS: [id number] CT ABDOMEN AND PELVIS WITH CONTRAST HISTORY: PAIN, OVARIAN CANCER TECHNIQUE: Imaging performed of the abdomen and pelvis with IV contrast. Single phase imaging of the abdomen. Coronal and sagittal reformats are submitted. All CT scans at [facility] use at least one of these dose optimization techniques: automated exposure control; mA and/or kV adjustment per patient size (includes targeted exams where dose is matched to clinical indication); or iterativ e reconstruction. IV CONTRAST: Omnipaque 300; 95 mL IV. Oral contrast: Yes. DLP: 1013.3 mGycm COMPARISON: 06/22/2019, 03/22/2019, 11/16/2018 Lower thorax: Mild dependent changes at the lung bases. No pneumonia. Heart is normal size. No hiatal hernia. Liver/biliary system: Liver is normal size. There is mild intrahepatic duct dilatation which was pres ent on the prior study. Gallbladder: Normal. No gallstones or wall thickening. No pericholecystic fluid. Pancreas: Markedly atrophic pancreas. Very poorly visualized pancreas. Spleen: Normal. Adrenal glands: Normal. Right kidney: Moderate atrophy of the RIGHT kidney. Enhancement of the cortex is still present. There is a RIGHT ureteral stent catheter coiled in the pelvis and normally positioned along the RIGHT uret er. The previously described obstruction has resolved. Left kidney: Normal. Aorta: Mild atherosclerosis with no aneurysm. Lymphadenopathy: Significant increase in size of the solid mass with variable density centered in the RIGHT pelvis. RIGHT ureter is being encased by this mass and the mass invades into the psoas muscle. Mass extends to abut the L5-S1 disc space. Mass now measures 5.8 x 3.8 x 6.5 cm and has increased in size. There are multiple prior surgical clips adjacent to the mass. Distal small bowel is being elev ated by the mass. There are several loops of small bowel closely associated with the mass. Free fluid: None. GI tract: There is extensive constipation. There is mild wall thickening near the anastomotic sutures in the midline from prior colon resection. Abdominal wall: Unremarkable abdominal wall. No hernia. Pelvis: RIGHT ureteral pigtail catheter coiled in the pelvis. There is no free fluid or adenopathy id entified. There are small benign appearing inguinal lymph nodes. Bones: Degenerative disc disease at L5-S1. CT/CT abdomen pelvis w con* [id number] IMPRESSION: 1. Progression of the RIGHT pelvic mass since 06/22/2019. There is a large mass in the RIGHT pelvis now measuring 5.8 x 3.8 x 6.5 cm. Mass encases the RIGHT ur eter and is inseparable from the distal small bowel loops and abuts the RIGHT L 5-S1 disc space. Probably representing a local recurrence versus metastatic sit e. 2. Interval placement of a RIGHT ureteral stent with resolution of the RIGHT h ydronephrosis. RIGHT renal atrophy now present. 3. Mild soft tissue thickening near the anastomotic sutures in the mid abdomen . 4. No ascites.
[2019-12-12] MEDS: iohexol 300 mg/mL 50 mL Btl PO (09:57)
[2019-12-12] MEDS: iohexol 300 mg/mL 100 mL Btl IV (10:14)
== END 2019-12-16 23:59 | disposition home or self-care (01) ==
LOC: RADWPI 08:25
PROVIDERS: Nurse Practitioner; Visit Provider Internal Medicine Medical Oncology
DX: C56.1 Malignant neoplasm of right ovary (principal); C79.89 Secondary malignant neoplasm of other specified sites; G89.29 Other chronic pain; R10.31 Right lower quadrant pain; N39.0 Urinary tract infection, site not specified; B95.2 Enterococcus as the cause of diseases classified elsewhere; N26.1 Atrophy of kidney (terminal); G62.0 Drug-induced polyneuropathy; T45.1X5D Adverse effect of antineoplastic and immunosuppressive drugs, subsequent encounter; I10 Essential (primary) hypertension; E78.5 Hyperlipidemia, unspecified; K21.9 Gastro-esophageal reflux disease without esophagitis; J44.9 Chronic obstructive pulmonary disease, unspecified; M47.9 Spondylosis, unspecified; F41.8 Other specified anxiety disorders; F17.210 Nicotine dependence, cigarettes, uncomplicated; Z86.718 Personal history of other venous thrombosis and embolism; Z79.01 Long term (current) use of anticoagulants; Z96.0 Presence of urogenital implants; Z79.891 Long term (current) use of opiate analgesic; Z79.899 Other long term (current) drug therapy; Z79.2 Long term (current) use of antibiotics
CPT/HCPCS: 36591; 36593; 74177; 80053; 81001; 83735; 85025; 86304; 96374; 99214; J2997; Q9967

== ENCOUNTER 2020-01-16 06:38 | Outpatient (RCR) | payer MEDICARE, OTHER, SELFPAY ==
[2019-12-26 17:39] LABS: Basophils % 0.8 %; Eosinophils # 0.2 10^3/uL (0.0-0.8); Eosinophils % 3.3 %; Hematocrit 35.6 % (37.0-47.0); Lymphocytes # 1.4 10^3/uL (0.8-4.8); Mean Corpuscular HGB Conc 30.9 g/dL (30.0-36.0); Mean Corpuscular Hemoglobin 25.9 pg (28.0-34.0); Mean Platelet Volume 9.9 fL (7.4-10.4); Monocytes # 0.4 10^3/uL (0.2-0.9); Neutrophils # 3.1 10^3/uL (1.8-7.7); Neutrophils % 60.7 %; Nucleated Red Blood Cells % 0 %; Platelet Count 197 10^3/cmm (130-400); Red Blood Count 4.24 10^6/uL (4.1-5.3); Red Cell Distribution Width 15.9 % (12.1-15.1); White Blood Count 5.2 10^3/uL (4.0-10.0)
[2019-12-26 17:56] LABS: Alanine Aminotransferase 7 U/L (0-33); Albumin Level 3.9 g/dL (3.5-5.2); Alkaline Phosphatase 81 IU/L (35-105); Anion Gap 15.2 (5-19); Aspartate Amino Transferase 16 U/L (0-32); Blood Urea Nitrogen 6 mg/dL (8-23); Calcium 9.4 mg/dL (8.5-10.5); Carbon Dioxide 30 mmol/L (22-29); Chloride 87 mmol/L (98-107); Globulin 3.6 g/dL (1.3-4.6); Glomerular Filtration Rate 85.1 mL/min (90-130); Glucose 100 mg/dL (65-115); Osmolality Calculated 260 mOsm/kg (285-295); Potassium 5.2 mmol/L (3.5-5.1); Sodium 127 mmol/L (136-145); Total Bilirubin 0.3 mg/dL (0.15-1.2); Total Protein 7.5 g/dL (6.6-8.7)
[2019-12-26 19:58] LABS: CA 125 32.8 U/mL (0-35)
[2020-01-02 12:03] LABS: Basophils # 0.1 10^3/uL (0.0-0.1); Basophils % 0.9 %; Eosinophils # 0.2 10^3/uL (0.0-0.8); Eosinophils % 2.8 %; Hematocrit 33.8 % (37.0-47.0); Hemoglobin 10.7 g/dL (11.5-15.3); Lymphocytes # 1.4 10^3/uL (0.8-4.8); Lymphocytes % 25.9 %; Mean Corpuscular HGB Conc 31.7 g/dL (30.0-36.0); Mean Corpuscular Hemoglobin 25.8 pg (28.0-34.0); Mean Corpuscular Volume 81.4 fL (81-99); Mean Platelet Volume 9.7 fL (7.4-10.4); Monocytes # 0.4 10^3/uL (0.2-0.9); Monocytes % 7.1 %; Neutrophils # 3.4 10^3/uL (1.8-7.7); Neutrophils % 63.1 %; Nucleated Red Blood Cells % 0 %; Platelet Count 181 10^3/cmm (130-400); Red Blood Count 4.15 10^6/uL (4.1-5.3); Red Cell Distribution Width 16.5 % (12.1-15.1); White Blood Count 5.4 10^3/uL (4.0-10.0)
[2020-01-02 12:18] LABS: Alanine Aminotransferase 8 U/L (0-33); Albumin Level 4.3 g/dL (3.5-5.2); Alkaline Phosphatase 75 IU/L (35-105); Anion Gap 13.2 (5-19); Aspartate Amino Transferase 16 U/L (0-32); Blood Urea Nitrogen 8 mg/dL (8-23); Calcium 9.3 mg/dL (8.5-10.5); Carbon Dioxide 31 mmol/L (22-29); Chloride 89 mmol/L (98-107); Globulin 2.9 g/dL (1.3-4.6); Glomerular Filtration Rate 85.1 mL/min (90-130); Glucose 105 mg/dL (65-115); Osmolality Calculated 264 mOsm/kg (285-295); Potassium 4.2 mmol/L (3.5-5.1); Sodium 129 mmol/L (136-145); Total Bilirubin 0.2 mg/dL (0.15-1.2); Total Protein 7.2 g/dL (6.6-8.7)
--- NOTE | 2020-01-06 22:17 | ONC FU_ITS ---
[facility] Patient Note Patient: Nisreen Carrasco V Unit #: [id number]: [id number] Dictated By: Daniella JacobsenDate of Visit: Jan 02, 2020 Onc MED Follow-Up/Prog Note Chief Complaint: Ovarian cancer History of Present Illness: Mrs Carrasco is a 59 year-old woman with recurrent ovarian cancer. She had optimal resection with her initial surgery back in May 2003. She had documented recurrence in July 2008, nearly 5 years after completion of adjuvant chemotherapy with 6 cycles of carboplatin/Taxol. She was retreated at that time with carboplatin/Taxol chemotherapy, but in combination with Avastin. Treatment was stopped after 4 cycles because of worsening neuropathy, but she did have a very good clinical response with normalization of the CA-125 level. She was then followed on observation. She did well until July 2012 when she presented with small bowel obstruction. Her Ca-125 level at that point had not increased and the obstruction initially did improve with conservative management. Ultimately, though, she was confirmed to have disease recurrence in the abdomen. She underwent surgery at [facility] in October 2012. At laparotomy there were extensive adhesions in the abdomen, but there was recurrent tumor in the right mid abdomen and right upper quadrant. It was involving the cecum, the mesocolon, and the small bowel mesentery in a multiple twisted mass. There also was periaortic juanita involvement. She underwent right hemicolectomy and primary anastamosis of the bowel with complete resection of the mass. 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 She had gradual recovery from that procedure. In February 2013 she restarted chemotherapy with carboplatin in combination with gemcitabine. She experienced a significant hypersensitivity reaction to the carboplatin with the third cycle of treatment. She then continued chemotherapy with single agent gemcitabine. She experienced significant fatigue and myelosuppression with gemcitabine, even at a reduced dose level. She did not tolerate an attempt at dose escalation. She had some ongoing GI symptoms during this time, but no documented disease progression. She had a followup visit with Dr. David in January 2014. Her disease at that time appeared stable, and it was recommended that she stop chemotherapy again and just go back on observation. By May 2015 she was having significantly more abdominal pain and repeat CT abdomen/pelvis at that point was highly suspicious for recurrent metastatic disease at the site of the ileocolic anastomosis. That study showed no obvious metastatic involvement in the liver and no ascites. In June 2015 she restarted chemotherapy with weekly paclitaxel. She initially was tolerating it pretty well on a day 1/day 8 schedule every 3 weeks. She had presented at day 15 of her third cycle with severe abdominal pain and nausea. Repeat CT scan showed increasing soft tissue at the ileocolic anastomosis. There was a large amount of fecal material proximal to that site, and an area of stenosis was suspected. She did improve, though, with conservative management, and she subsequently was able to continue chemotherapy with weekly paclitaxel. As of November 2015 she had completed 7 cycles of treatment. Her chemotherapy was put on hold after her cycle 8 day 1 treatment due to diarrhea and increased abdominal pain. Abdominal x-rays showed just nonspecific gas pattern in the left abdomen. She had restaging CT abdomen/pelvis again on 01/13/2016. It showed no obstruction and no evidence of disease progression. There was no lymphadenopathy or ascites noted. Her symptoms had subsequently improved, and she did then proceed with her 9th cycle of chemotherapy. Beginning with cycle 10, I did have her change to a day 1/day 15 schedule. She had subsequently tolerated it much better. As of her follow-up visit on 08/06/2016, she appeared stable clinically, and at that point she continued with her 16th cycle of treatment. Her day 15 treatment with that cycle was not administered. She continued treatment with cycle 18 day 1 on 10/01/2016. On 10/06/2016 she was admitted to the hospital with pneumonia. CT pulmonary angiogram at that time showed no evidence of pulmonary emboli. There were widespread tree-in-bud pulmonary parenchymal nodularities and there was evidence of underlying chronic emphysema. There was new hilar or mediastinal lymphadenopathy noted, possibly reactive or neoplastic. Also noted was a superior segment left lower lobe pulmonary nodule measuring 8.4 mm. She did improve on antibiotic therapy, and she was discharged home on 10/10/2016. She had quit smoking just prior to the hospitalization. She did not receive day 15 treatment with that cycle. During subsequent follow-up, I opted to keep her chemotherapy on hold, as her disease had been very stable. Restaging CT scans of the chest, abdomen, and pelvis on 04/28/2017 showed resolved hilar and mediastinal adenopathy and resolved left lower lobe pulmonary nodule. There was stable appearance of the ileocolic anastomosis. There was no evidence of disease progression. Her other medical illnesses include hypertension, hypercholesterolemia and gastroesophageal reflux disease. She also has chronic obstructive pulmonary disease and she had a pretty severe episode of pneumonia in December 2008. She had stopped smoking following her hospitalization in September. 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 Other surgeries have been limited to tonsillectomy and tubal ligation. INTERIM HISTORY: Restaging CT scans of the chest, abdomen, and pelvis on 11/16/2018 showed unchanged medial middle lobe parenchymal opacity measuring 8-9 mm. Lingular and anterior left lower lobe subsegmental atelectasis and/or scarring also appeared unchanged. There was no evidence of disease progression in the chest, abdomen, or pelvis. In February 2019 she had presented with new onset of swelling in the right leg. Venous Doppler of the right leg on 03/09/2019 showed partially occlusive deep vein thrombosis of the superficial femoral vein with thrombus noted to extend into the greater saphenous vein. She began on anticoagulation with apixaban. Restaging CT scans on 03/22/2019 showed stable 8-9 mm pulmonary nodule in the right middle lobe. Right hilar and infrahilar hilar lymph nodes also appeared stable. Moderate right hydronephrosis with right ureterectasis appeared to be new. Slightly prominent right inguinal lymph nodes appeared unchanged. Overall, there was no evidence of disease progression in the chest, abdomen, or pelvis. She continued on observation/expectant management. In April 2019 a next generation sequencing study was performed on the specimen from her surgical resection in October 2012. It showed presence of a BRCA1 mutation, presumed to be somatic, as her original germline BRCA testing was negative. There were no other actionable mutations identified. She had come in last week for a scheduled port flushed. At that time she reported increased abdominal pain, mainly in the right lower quadrant and right groin area. It was noted that her CA-125 level, though still in normal range, had been increasing. At that point it was up to 14.0 U/mL compared to 8.6 U/mL in October 2018. Repeat CT abdomen/pelvis on 06/22/2019 showed enlarging soft tissue mass in the right side of the pelvis measuring 3.5 cm. This was noted to be in the area of surgical clips from her prior hysterectomy, and the appearance was felt to be consistent with local recurrence or metastatic adenopathy. The mass was noted to be adjacent to and possibly invading the psoas muscle. There was increasing hydronephrosis of the right kidney. She was referred to Dr. David. On 07/18/2019 she underwent exploratory laparotomy with extensive adhesive lysis and extensive retroperitoneal exploration and debulking of right pelvic/psoas muscle tumor. The tumor was noted to obstruct the right ureter, and the procedure included placement of a right ureteral stent. Pathology showed high-grade carcinoma which was PAX-8 and WT-1 positive. Mrs Carrasco is here today for a follow-up visit of Lynparza. She was able to start her medication on . She has tolerated it well thus far. She states overall she feels really good. She states that she is tolerating the Lynparza well. Her only complaint is that things taste weird for about 3 hours after she takes it . She denies any mouth sores, sore throat or difficulty swallowing. She denies any acid reflux. She is had no diarrhea. She continues to have chronic constipation which is controlled with her prescription laxatives and [id number] additives as needed. She denies any new pain she states that her pain seems be well controlled with her current pain regimen. Her activity is still very limited due to shortness of breath. She denies any nausea or vomiting. She has had no fever or chills or any signs of infection for at least the last 72 hours. She has not been around anyone that has been sick. She states overall she thinks she is doing well and is tolerating the Lynparza so far. She states that she has just read an article in the cure magazine that Avastin with the Lynparza has had good results for ovarian cancer. She is advised we will check into this and see if it something that would be covered by her insurance. It may be considered experimental at this point but we will check into it for her. Her ECOG remains at 2. Past Medical History: Chronic back pain (secondary to ruptured discs) Depression Peripheral neuropathy in 2008 Hypothyroidism in 2007 Chronic obstructive pulmonary disease in 2006 Anxiety in 2002 Coronary artery disease in 2002 Hypercholesterolemia in 2002 Hypertension in 2002 Gastroesophageal reflux disease in 2002 Past Surgical History: Stent placement in the ureter Flu vaccine in 2018 - left deltoid Prevnar 13 in 2019 - right deltoid Pneumovax in 2015 Flu vaccine in 2015 Right subclavian Port in 2015 Flu vaccine in 2014 Flu in 2013 COLONOSCOPY in 2007 Appendectomy in 2002 Hysterectomy in 2002 - WITH BSO PORT PLACEMENT in 2002 Tubal ligation in 1991 Tonsillectomy in 1964 Allergies: Carboplatin Medications: Ativan 1 mg (of 1 mg) Tablet Oral at bedtime PRN Duragesic-100 2 Patch(es) (of 100 mcg) Patch 72 Hr Transdermal q 3 days Enalapril Maleate 1 (20 mg) Tablet Oral b.i.d. Lactulose Solution Oral PRN Levothroid 1 (50 mcg) Tablet Oral daily Lyrica 1 Capsule (of 75 mg) Oral b.i.d. Macrobid 1 Capsule (of 100 mg) Oral b.i.d. MiraLax Pack Oral daily Mucinex Maximum Strength 1 Tablet (of 1200 mg) Tablet SR 12 HR Oral b.i.d. PRN NexIUM 1 (40 mg) Capsule Delayed Release Oral b.i.d. OxyCODONE HCl 1 (20 mg) Tablet Oral q 4 hours PRN Proventil HFA Aerosol, solution Inhalation PRN Soma 1 (350 mg) Tablet Oral t.i.d. TRAZADONE 1 (100 mg) Tablet Oral at bedtime Venlafaxine HCl 1 (150 mg) Capsule SR 24 HR Oral daily Xarelto 1 Tablet (of 10 mg) Oral daily Family History: Ms. Carrasco's mother at age 59: cancer history consists of Breast cancer at age 28 while other medical history includes AK at age 57 (cause of ). Ms. Carrasco's father is alive. Ms. Carrasco does not know if her maternal grandmother is alive. She does not know if her maternal grandfather is alive. Ms. Carrasco has 1 brother who is alive. Social History: Ms. Carrasco is and she is an on disability. She is an occasional smoker who has smoked 0.5 packs/day for 30 years. She is a former drinker. She has indicated exposure to the following products: cigarettes. Ms. Carrasco reports the following support systems: lives with spouse, significant other, family, or friends, lives in own house, supportive family/friends willing to assist with needs, and adequate transportation available for expected visits. Her diet consists of regular meals. She indicates her activity level as: daily activities. she smokes 5 cigaretter per day and has an e cigarette. Review Of Symptoms: Constitutional Denies any fever. States having nights sweats-chronic and stable. Taste is off a little-things taste weird . Allergic/Immunologic No reactions. Eyes Denies significant visual changes. No diplopia. No amaurosis. ENMT Denies changes in hearing, sore throat, mouth sores, difficulty or changes in swallowing ability, and/or sinus drainage. Hematologic/Lymphatic Denies easy bruising or bleeding. The patient denies any tender or palpable lymph nodes. Respiratory non productive cough-stable and continued shortness of breath. Wears oxygen supplementation with activity. Cardiovascular Denies anginal chest pain, palpitations or orthopnea. Gastrointestinal Denies nausea, vomiting, diarrhea, GI bleeding. Has chronic constipation, has prescription laxative. Denies change in bowel habits and/or stool color, no heartburn or early satiety. Genitourinary (F) No hematuria, hesitancy, incontinence, vaginal bleeding, discharge or other problems with urination. Musculoskeletal Denies joint swelling or redness. No decreased range of motion. States having generalized joint pain-chronic. Current pain regimen is now controlling her pain. Integumentary Denies chronic rashes, inflammation, ulcerations or skin changes. Neurologic Denies any no areas of focal weakness or numbness. Normal gait. No sensory problems.. back and leg pain-chronic and no worse than her normal. Psychiatric Denies worsening depression, denies any stephanie or mood swings. Vital Signs: Performed on Jan 02, 2020 13:24 Height - 67.00 in Weight - 133.2 lbs (LOW) BSA - 1.70 sq.m BMI - 20.86 Temperature - 97.7 F (LOW) Pulse - 74 /min Respiration - 22 /min BP - 130/70 mm(hg) O2 Sat - 92 % (LOW) Pain - 0,2 - Ambulatory/capable of all self-care, unable to perform any work activities. Up and about more than 50% of waking hours. (ECOG) Physical Examination: Constitutional Alert, oriented, no acute distress. Skin pink, warm and dry. Frail in appearance but she is wearing make up. Head Normocephalic; atraumatic. Eyes Conjunctivae and sclerae are clear and without icterus. Pupils are reactive and equal. ENMT Sinuses are nontender. No oral exudates, ulcers, masses, or mucositis. Oropharynx clear. Neck Supple without masses or thyromegaly. No jugular venous distension. Hematologic/Lymphatic No petechiae or purpura. No tender or palpable lymph nodes in the cervical, supraclavicular areas. Respiratory Lungs are clear to auscultation without rhonchi or wheezing. Cardiovascular Regular rate and rhythm of heart without murmurs,clicks, gallops or rubs. Chest Chest is symmetric without chest wall deformities. Venous access device insertion site is unremarkable. Abdomen Non-tender, non-distended, no masses, ascites. Back/Spine Non-tender to palpation. Extremities No visible deformities, no cyanosis, clubbing. No lower extremity edema. Musculoskeletal No tenderness or swelling, normal range of motion without obvious weakness. Integumentary No rashes or lesions. Neurologic No sensory or motor deficits, normal cerebellar function, normal gait. Psychiatric Alert and oriented times three. Coherent speech. Verbalizes understanding of our discussions today. Laboratory:Test performed on Jan 02, 2020 11:41 Sodium 129 mmol/L Potassium 4.2 mmol/L Chloride 89 mmol/L CO2 31 mmol/L Anion Gap 13.2 BUN 8 mg/dL Creatinine 0.7 mg/dL Cr Clearance (Est) 80.50 mL/min eGFR 85.1 mL/min Glucose 105 mg/dL Calcium 9.3 mg/dL Protein, Total 7.2 g/dL Albumin 4.3 g/dL Globulin 2.9 g/dL Bilirubin, Total 0.2 mg/dL ALT (SGPT) 8 U/L AST (SGOT) 16 U/L Alkaline Phosphatase 75 IU/L WBC 5.4 10 3/uL RBC 4.15 10 6/uL HGB 10.7 g/dL HCT 33.8 % MCV 81.4 fL MCH 25.8 pg MCHC 31.7 g/dL RDW 16.5 % Platelet Count 181 10 3/cmm MPV 9.7 fL Neutrophils 3.4 10 3/uL Lymphocytes 1.4 10 3/uL Monocytes 0.4 10 3/uL Eosinophils 0.2 10 3/uL Basophils 0.1 10 3/uL Neutrophil % 63.1 % Lymphocyte % 25.9 % Monocyte % 7.1 % Eosinophil % 2.8 % Basophils % 0.9 % Test performed on Dec 26, 2019 07:30 CA-125 32.8 U/mL Impression: 1. The patient has recurrent ovarian cancer. By next generation sequencing her tumor was noted to harbor a BRCA1 mutation, presumed somatic, as her original testing for germline BRCA was negative. Her tumor also was tested and found to be MSI stable with intact mismatch repair proteins. 2. She had restarted chemotherapy with carboplatin/gemcitabine in February 2013 following a surgical debulking procedure. Her treatment was subsequently modified to single agent gemcitabine as a result of a hypersensitivity reaction to carboplatin. She did appear to have some response to the chemotherapy. As of January 2014 her disease was felt to be stable, and she was then observed off treatment. 3. In May 2015 she restarted chemotherapy with weekly paclitaxel. Following her cycle 18 treatment on 09/17/2016 she had another hospital admission for pneumonia. As her disease had been stable and her performance status had been declining, her chemotherapy at that point was put on hold. Her other medical illnesses include: 4. Hypertension. 5. Hyperlipidemia. 6. GERD. 7. COPD. 8. Degenerative disease of the spine with chronic back pain. 9. Chronic anxiety/depression. 10. She has nicotine dependence (cigarettes). During follow-up she has continued to have multiple chronic complaints, including abdominal pain and constipation along with fatigue, insomnia, back pain, and neuropathy from her previous chemotherapy. She also has significant underlying COPD, and she has been having chronic cystitis symptoms. In February 2019 she presented with swelling in the right leg, she was found to have deep vein thrombosis by venous Doppler. She has since then been on anticoagulation with apixaban. Her restaging CT scans in March 2019 showed no obvious disease progression in the chest, abdomen, or pelvis, but there was evidence of new moderate right hydronephrosis with dilatation of the right proximal ureter. She then presented recently with increased pain in the right lower quadrant of the abdomen and right groin area. There has been a gradual increase in her CA-125 level. [address] abdomen/pelvis on 06/22/2019 shows a 3.5 cm soft tissue mass in the right pelvis suspicious for local recurrence or lymphadenopathy, and there is also increasing right hydronephrosis. Overall, the findings were consistent with progression of the ovarian cancer. She was referred to Dr. David and on 07/18/2019 she underwent exploratory laparotomy with a decent lysis and with debulking of the right pelvic tumor. He tumor was obstructing the right ureter, and the procedure also included placement of a right ureteral stent. She has been showing gradual recovery from the surgery. At her followup in November 2019, she continued to have very limited activity. She was having significant pain, some component of which was likely related to a urinary tract infection. That issue was further complicated by the fact that she does have a ureteral stent in place. She was having significant abdominal pain and she has chronic pain associated with her chemotherapy-induced neuropathy. She did have stent replacement per Dr Cooper. She started Lynparza 150 mg BID on 12/18/2019. She has tolerated it well thus far. Plan: 1. Proceed with Lynparza-she started her first dose on 12/18/2019. 2. She is inquiring about adding Avastin after she read an article in a cancer patient magazine (CURE). 3. Labs from today were reviewed in detail and discussed with Ms. Carrasco and a copy was given to her. WBC 5.4, hemoglobin 10.7, platelets 181,000, ANC is 3400 creatinine 0.7 LFTs are normal. Her last CA 125 was on December 26, 2019 and resulted at 32.8. 4. Refill fentanyl @ 200 mcg every 72 hours and oxycodone 30 mg to 1 or 2 every 4-6 hours as needed pain with instructions to try to 4 times daily as needed for pain. 5. Continue Lyrica @ 150 twice daily. 6. please add magnesium to blood in lab-high risk drug-Lynparza. 7. Plan for followup in 2 weeks with CBC, CMP, iron studies and CA 125. Will plan to add Avastin at that time if insurance approval has been obtained. 8. Side effects discussed with use of PARP inhibitors include peripheral edema, fatigue, headaches, dizziness UTI symptoms. Also we discussed that this may lower her blood counts including absolute neutrophil count, anemia, and thrombocytopenia. She may have some generalized body aches as well. Respiratory tract infections/nasopharyngitis/rhinitis/sinusitis were also noted. Chances of pulmonary embolism and venous thrombosis were both less than or equal to 1%. 9. Mrs. Carrasco was instructed to call us in the interim if questions or problems arise. Signed By: Daniella Jacobsen-, AOCNP Ravi Lynne MD <<Signature on File>>
[2020-01-16 11:40] LABS: Basophils # 0.1 10^3/uL (0.0-0.1); Eosinophils # 0.1 10^3/uL (0.0-0.8); Eosinophils % 2.1 %; Hematocrit 34.1 % (37.0-47.0); Lymphocytes # 1.5 10^3/uL (0.8-4.8); Lymphocytes % 28.4 %; Mean Corpuscular HGB Conc 32.3 g/dL (30.0-36.0); Mean Corpuscular Hemoglobin 26.9 pg (28.0-34.0); Mean Corpuscular Volume 83.4 fL (81-99); Mean Platelet Volume 9.7 fL (7.4-10.4); Monocytes # 0.4 10^3/uL (0.2-0.9); Monocytes % 8.3 %; Neutrophils # 3.1 10^3/uL (1.8-7.7); Neutrophils % 59.8 %; Nucleated Red Blood Cells % 0 %; Platelet Count 199 10^3/cmm (130-400); Red Blood Count 4.09 10^6/uL (4.1-5.3); Red Cell Distribution Width 18.5 % (12.1-15.1); White Blood Count 5.2 10^3/uL (4.0-10.0)
[2020-01-16 11:55] LABS: Alanine Aminotransferase < 5 U/L (0-33); Albumin Level 4.3 g/dL (3.5-5.2); Alkaline Phosphatase 75 IU/L (35-105); Anion Gap 15.4 (5-19); Aspartate Amino Transferase 14 U/L (0-32); Blood Urea Nitrogen 9 mg/dL (8-23); Calcium 9.4 mg/dL (8.5-10.5); Carbon Dioxide 28 mmol/L (22-29); Chloride 89 mmol/L (98-107); Globulin 2.8 g/dL (1.3-4.6); Glomerular Filtration Rate 72.9 mL/min (90-130); Glucose 106 mg/dL (65-115); Osmolality Calculated 262 mOsm/kg (285-295); Potassium 4.4 mmol/L (3.5-5.1); Sodium 128 mmol/L (136-145); Total Bilirubin 0.3 mg/dL (0.15-1.2); Total Protein 7.1 g/dL (6.6-8.7)
[2020-01-16 12:05] LABS: CA 125 16.3 U/mL (0-35)
[2020-01-16 14:01] LABS: Iron 71 ug/dL (37-145); Percent Saturation 21.8 % (20-50); Total Iron Binding Capacity 325 mcg/dl; Unsaturated Iron Binding 254 ug/dL (112-347)
--- NOTE | 2020-01-17 08:17 | ONC FU_ITS ---
Dr. Lynne Patient Follow-Up Note Patient: Nisreen Carrasco V Unit #: [id number]: [id number] Dicatated By: Ravi Lynne M.D.Date of Visit:Jan 16, 2020 Onc Med Follow-up/Prog Note Chief Complaint: Ovarian cancer History of Present Illness: This is a 59 year-old woman with recurrent ovarian cancer. She had optimal resection with her initial surgery back in May 2003. She had documented recurrence in July 2008, nearly 5 years after completion of adjuvant chemotherapy with 6 cycles of carboplatin/Taxol. She was retreated at that time with carboplatin/Taxol chemotherapy, but in combination with Avastin. Treatment was stopped after 4 cycles because of worsening neuropathy, but she did have a very good clinical response with normalization of the CA-125 level. She was then followed on observation. She did well until July 2012 when she presented with small bowel obstruction. Her Ca-125 level at that point had not increased and the obstruction initially did improve with conservative management. Ultimately, though, she was confirmed to have disease recurrence in the abdomen. She underwent surgery at [facility] in October 2012. At laparotomy there were extensive adhesions in the abdomen, but there was recurrent tumor in the right mid abdomen and right upper quadrant. It was involving the cecum, the mesocolon, and the small bowel mesentery in a multiple twisted mass. There also was periaortic juanita involvement. She underwent right hemicolectomy and primary anastamosis of the bowel with complete resection of the mass. 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 She had gradual recovery from that procedure. In February 2013 she restarted chemotherapy with carboplatin in combination with gemcitabine. She experienced a significant hypersensitivity reaction to the carboplatin with the third cycle of treatment. She then continued chemotherapy with single agent gemcitabine. She experienced significant fatigue and myelosuppression with gemcitabine, even at a reduced dose level. She did not tolerate an attempt at dose escalation. She had some ongoing GI symptoms during this time, but no documented disease progression. She had a followup visit with Dr. David in January 2014. Her disease at that time appeared stable, and it was recommended that she stop chemotherapy again and just go back on observation. By May 2015 she was having significantly more abdominal pain and repeat CT abdomen/pelvis at that point was highly suspicious for recurrent metastatic disease at the site of the ileocolic anastomosis. That study showed no obvious metastatic involvement in the liver and no ascites. In June 2015 she restarted chemotherapy with weekly paclitaxel. She initially was tolerating it pretty well on a day 1/day 8 schedule every 3 weeks. She had presented at day 15 of her third cycle with severe abdominal pain and nausea. Repeat CT scan showed increasing soft tissue at the ileocolic anastomosis. There was a large amount of fecal material proximal to that site, and an area of stenosis was suspected. She did improve, though, with conservative management, and she subsequently was able to continue chemotherapy with weekly paclitaxel. As of November 2015 she had completed 7 cycles of treatment. Her chemotherapy was put on hold after her cycle 8 day 1 treatment due to diarrhea and increased abdominal pain. Abdominal x-rays showed just nonspecific gas pattern in the left abdomen. She had restaging CT abdomen/pelvis again on 01/13/2016. It showed no obstruction and no evidence of disease progression. There was no lymphadenopathy or ascites noted. Her symptoms had subsequently improved, and she did then proceed with her 9th cycle of chemotherapy. Beginning with cycle 10, I did have her change to a day 1/day 15 schedule. She had subsequently tolerated it much better. As of her follow-up visit on 08/06/2016, she appeared stable clinically, and at that point she continued with her 16th cycle of treatment. Her day 15 treatment with that cycle was not administered. She continued treatment with cycle 18 day 1 on 10/01/2016. On 10/06/2016 she was admitted to the hospital with pneumonia. CT pulmonary angiogram at that time showed no evidence of pulmonary emboli. There were widespread tree-in-bud pulmonary parenchymal nodularities and there was evidence of underlying chronic emphysema. There was new hilar or mediastinal lymphadenopathy noted, possibly reactive or neoplastic. Also noted was a superior segment left lower lobe pulmonary nodule measuring 8.4 mm. She did improve on antibiotic therapy, and she was discharged home on 10/10/2016. She had quit smoking just prior to the hospitalization. She did not receive day 15 treatment with that cycle. During subsequent follow-up, I opted to keep her chemotherapy on hold, as her disease had been very stable. Restaging CT scans of the chest, abdomen, and pelvis on 04/28/2017 showed resolved hilar and mediastinal adenopathy and resolved left lower lobe pulmonary nodule. There was stable appearance of the ileocolic anastomosis. There was no evidence of disease progression. Her other medical illnesses include hypertension, hypercholesterolemia and gastroesophageal reflux disease. She also has chronic obstructive pulmonary disease and she had a pretty severe episode of pneumonia in December 2008. She had stopped smoking following her hospitalization in September. 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 Other surgeries have been limited to tonsillectomy and tubal ligation. INTERIM HISTORY: Restaging CT scans of the chest, abdomen, and pelvis on 11/16/2018 showed unchanged medial middle lobe parenchymal opacity measuring 8-9 mm. Lingular and anterior left lower lobe subsegmental atelectasis and/or scarring also appeared unchanged. There was no evidence of disease progression in the chest, abdomen, or pelvis. In February 2019 she had presented with new onset of swelling in the right leg. Venous Doppler of the right leg on 03/09/2019 showed partially occlusive deep vein thrombosis of the superficial femoral vein with thrombus noted to extend into the greater saphenous vein. She began on anticoagulation with apixaban. Restaging CT scans on 03/22/2019 showed stable 8-9 mm pulmonary nodule in the right middle lobe. Right hilar and infrahilar hilar lymph nodes also appeared stable. Moderate right hydronephrosis with right ureterectasis appeared to be new. Slightly prominent right inguinal lymph nodes appeared unchanged. Overall, there was no evidence of disease progression in the chest, abdomen, or pelvis. She continued on observation/expectant management. In April 2019 a next generation sequencing study was performed on the specimen from her surgical resection in October 2012. It showed presence of a BRCA1 mutation, presumed to be somatic, as her original germline BRCA testing was negative. There were no other actionable mutations identified. She had come in last week for a scheduled port flushed. At that time she reported increased abdominal pain, mainly in the right lower quadrant and right groin area. It was noted that her CA-125 level, though still in normal range, had been increasing. At that point it was up to 14.0 U/mL compared to 8.6 U/mL in October 2018. Repeat CT abdomen/pelvis on 06/22/2019 showed enlarging soft tissue mass in the right side of the pelvis measuring 3.5 cm. This was noted to be in the area of surgical clips from her prior hysterectomy, and the appearance was felt to be consistent with local recurrence or metastatic adenopathy. The mass was noted to be adjacent to and possibly invading the psoas muscle. There was increasing hydronephrosis of the right kidney. She was referred to Dr. David. On 07/18/2019 she underwent exploratory laparotomy with extensive adhesive lysis and extensive retroperitoneal exploration and debulking of right pelvic/psoas muscle tumor. The tumor was noted to obstruct the right ureter, and the procedure included placement of a right ureteral stent. Pathology showed high-grade carcinoma which was PAX-8 and WT-1 positive. During follow-up she had ongoing problems with urinary tract infection and she continued to have significant pain in the right groin area and lower abdomen. Her repeat CT abdomen/pelvis on 12/12/2019 showed progression of a right pelvic mass compared to the June 2019 study. At that point it measured 5.8 x 3.8 x 6.5 cm and it was noted to encase the right ureter. It was inseparable from the distal small bowel loops and it was noted to abut the right L5-S1 disc space. There was interval placement of right ureteral stent with resolution of right hydronephrosis. With those findings and with the known BRCA mutation, she began a trial of therapy with olaparib 150 mg daily on 12/18/2019. She is seen for a scheduled visit. She has not been feeling good generally. She reports having a drug out feeling. Her activity is limited. ECOG score is 2. Her appetite is not good, and she reports having a weird taste. She is eating, though. She has not had fever, but she has had some chills. She has hot flashes, but not as bad. She says her sinuses are really bugging her. She has some associated cough. She says her breathing is fair. She is on oxygen at night and she uses it as needed during the daytime. She is still smoking 1/2 pack of cigarettes daily. She sometimes has chest pain. Lately she has been having a lot of nausea, but no vomiting. She says she is belching a lot. She has ongoing problems with constipation. Bladder function has been okay. She still has dull pain constantly in the right groin area and across the lower abdomen. It occasionally gets sharp. She has chronic lower back pain, she also has some pain in the mid to upper back. She has had some headaches and she sometimes has dizziness or lightheadedness. She has chronic neuropathy in her hands and feet. Medications: Ativan 1 mg (of 1 mg) Tablet Oral at bedtime PRN, Duragesic-100 2 Patch(es) (of 100 mcg) Patch 72 Hr Transdermal q 3 days, Enalapril Maleate 1 (20 mg) Tablet Oral b.i.d., Lactulose Solution Oral PRN, Levothroid 1 (50 mcg) Tablet Oral daily, Lyrica 1 Capsule (of 75 mg) Oral b.i.d., Macrobid 1 Capsule (of 100 mg) Oral b.i.d. PRN, MiraLax Pack Oral daily, Mucinex Maximum Strength 1 Tablet (of 1200 mg) Tablet SR 12 HR Oral b.i.d. PRN, NexIUM 1 (40 mg) Capsule Delayed Release Oral b.i.d., OxyCODONE HCl 1 (20 mg) Tablet Oral q 4 hours PRN, Proventil HFA Aerosol, solution Inhalation PRN, Soma 1 (350 mg) Tablet Oral t.i.d., TRAZADONE 1 (100 mg) Tablet Oral at bedtime, Venlafaxine HCl 1 (150 mg) Capsule SR 24 HR Oral daily, Xarelto 1 Tablet (of 10 mg) Oral daily Allergies: Carboplatin Review of Systems: Constitutional - Her energy level is low. She feels faitgued. She is able to do light housework. She doesn't have an appetite but is able to eat. Her weight is stable. No fever. She has occasional episodes of chilling. No hot flashes or night sweats. ECOG score is 2, ENMT - She has sinus drainage. She is having excessive dryness in her mouth. No sore throat or difficulty swallowing, Hematologic/Lymphatic - No abnormal bruising or bleeding, Respiratory - She has shortness of breath with acitvity. She uses oxygen at night and during the day if needed. She has a smokers cough, occasionally productive with clear phlegm. No pleuritic pain or hemoptysis, Cardiovascular - She sometimes has chest pain with exertion. No palpitations, Gastrointestinal - She has been having nausea. No vomiting. No diarrhea. She has constipation. No blood in the stool or black stools. She is having significant pain in her right groin that radiates across her lower abdomen, Genitourinary (F) - No dysuria or hematuria. No urinary frequency. No urgency or incontinence, Musculoskeletal - She also has lower back pain and some pain in her mid to upper back, Integumentary - No skin complications, Neurologic - She has had headaches, mostly associated with sinuses. No dizziness. She has neuropathy in her hands and feet, whicih is chronic, Psychiatric - She has some chronic anxiety and depression. No insomnia. Vital Signs: Performed on Jan 16, 2020 12:35 Height - 67.00 in Weight - 134.6 lbs (HIGH) BSA - 1.71 sq.m BMI - 21.08 Temperature - 98.1 F (LOW) Pulse - 91 /min Respiration - 20 /min BP - 126/82 mm(hg) O2 Sat - 92 % (LOW) Pain - 8 Physical Examination: Constitutional - She appears somewhat weak generally, Eyes - Sclerae nonicteric. Conjunctivae clear, ENMT - There are no lesions noted in the oral cavity, Hematologic/Lymphatic - No cervical, clavicular, or axillary adenopathy, Respiratory - Lungs show diminished air movement bilaterally. There are mild rhonchi on inspiration and expiration, Cardiovascular - Heart rhythm is regular. There is no murmur, gallop, or rub noted, Abdomen - Mildly distended. She has tenderness in the lower abdomen. Liver and spleen are not enlarged. There is no abdominal mass or ascites noted. There is no inguinal adenopathy, Extremities - No edema, Neurologic - No focal neurologic deficits noted. Lab/Imaging: Test performed on Jan 16, 2020 11:10 Sodium 128 mmol/L Potassium 4.4 mmol/L Chloride 89 mmol/L CO2 28 mmol/L Anion Gap 15.4 BUN 9 mg/dL Creatinine 0.8 mg/dL Cr Clearance (Est) 71.18 mL/min eGFR 72.9 mL/min Glucose 106 mg/dL Calcium 9.4 mg/dL Protein, Total 7.1 g/dL Albumin 4.3 g/dL Globulin 2.8 g/dL Bilirubin, Total 0.3 mg/dL ALT (SGPT) < 5 U/L AST (SGOT) 14 U/L Alkaline Phosphatase 75 IU/L WBC 5.2 10 3/uL RBC 4.09 10 6/uL HGB 11.0 g/dL HCT 34.1 % MCV 83.4 fL MCH 26.9 pg MCHC 32.3 g/dL RDW 18.5 % Platelet Count 199 10 3/cmm MPV 9.7 fL Neutrophils 3.1 10 3/uL Lymphocytes 1.5 10 3/uL Monocytes 0.4 10 3/uL Eosinophils 0.1 10 3/uL Basophils 0.1 10 3/uL Neutrophil % 59.8 % Lymphocyte % 28.4 % Monocyte % 8.3 % Eosinophil % 2.1 % Basophils % 1.0 % CA-125 16.3 U/mL Impression: 1. Patient with recurrent ovarian cancer. By next generation sequencing her tumor was noted to harbor a BRCA1 mutation, presumed somatic, as her original testing for germline BRCA was negative. Her tumor also was tested and found to be MSI stable with intact mismatch repair proteins. 2. She had optimal debulking following initial diagnosis in May 2003, and she received adjuvant chemotherapy with 6 cycles of carboplatin/paclitaxel. 3. She had further treatment with 4 cycles of carboplatin/paclitaxel in combination with Avastin following documented recurrence in July 2008. 4. She had restarted chemotherapy with carboplatin/gemcitabine in February 2013 following a surgical debulking procedure for disease progression with associated bowel obstruction. Her treatment was subsequently modified to single agent gemcitabine as a result of a hypersensitivity reaction to carboplatin. She had some response to the chemotherapy. As of January 2014 her disease was felt to be stable, and she was then observed off treatment. 5.. In May 2015 she restarted chemotherapy with weekly paclitaxel. Following her cycle 18 treatment on 09/17/2016 she had another hospital admission for pneumonia. As her disease had been stable and her performance status had been declining, her chemotherapy at that point was put on hold. Her other medical illnesses include: 6. Hypertension. 7. Hyperlipidemia. 8. GERD. 9. COPD. 10. Degenerative disease of the spine with chronic back pain. 9. Chronic anxiety/depression. 10. She has nicotine dependence (cigarettes). During follow-up she has continued to have multiple chronic complaints, including abdominal pain and constipation along with fatigue, insomnia, back pain, and neuropathy from her previous chemotherapy. She also has significant underlying COPD, and she has been having chronic cystitis symptoms. In February 2019 she presented with swelling in the right leg, she was found to have deep vein thrombosis by venous Doppler. She has since then been on anticoagulation with apixaban. Her restaging CT scans in March 2019 showed no obvious disease progression in the chest, abdomen, or pelvis, but there was evidence of new moderate right hydronephrosis with dilatation of the right proximal ureter. She then presented recently with increased pain in the right lower quadrant of the abdomen and right groin area. There has been a gradual increase in her CA-125 level. Her repeat CT abdomen/pelvis on 06/22/2019 shows a 3.5 cm soft tissue mass in the right pelvis suspicious for local recurrence or lymphadenopathy, and there is also increasing right hydronephrosis. Overall, the findings were consistent with progression of the ovarian cancer. She was referred to Dr. David and on 07/18/2019 she underwent exploratory laparotomy with adhesolysis and with debulking of the right pelvic tumor. He tumor was obstructing the right ureter, and the procedure also included placement of a right ureteral stent. She had gradual recovery from the surgery. During subsequent follow-up she continued to have very limited activity and she had ongoing problems with recurrent urinary tract infection associated with the ureteral stent. She also continues to have significant pain in the lower abdomen/right groin area, and a repeat CT abdomen/pelvis on 12/12/2019 showed progression of a right pelvic mass compared to the June 2019 study. At that point it measured 5.8 x 3.8 x 6.5 cm and it was noted to encase the right ureter. It was inseparable from the distal small bowel loops and it was noted to abut the right L5-S1 disc space. There was interval placement of right ureteral stent with resolution of right hydronephrosis. With those findings and with the known BRCA mutation, she began trial of therapy with olaparib 150 mg daily on 12/18/2019. Thus far she appears to be tolerating it with acceptable toxicity. She continues to have significant fatigue and she still has pain in her right groin/lower abdominal area, but there has been a significant decrease in her Ca1 25 level. Plan: She continues olaparib 150 mg daily. I will recheck her serum iron studies, and she will be scheduled for parenteral iron replacement with Injectafer as indicated. I will otherwise plan a follow-up visit in 1 month. Signed By: Ravi Lynne M.D. <<Signature on File>>
== END 2020-01-16 23:59 | disposition home or self-care (01) ==
LOC: ONCMED 06:38
PROVIDERS: Nurse Practitioner; Visit Provider Internal Medicine Medical Oncology
DX: C56.1 Malignant neoplasm of right ovary (principal); C79.89 Secondary malignant neoplasm of other specified sites; I10 Essential (primary) hypertension; E78.00 Pure hypercholesterolemia, unspecified; K21.9 Gastro-esophageal reflux disease without esophagitis; J44.9 Chronic obstructive pulmonary disease, unspecified; G89.29 Other chronic pain; M54.9 Dorsalgia, unspecified; F41.8 Other specified anxiety disorders; K59.09 Other constipation; G89.3 Neoplasm related pain (acute) (chronic); E03.9 Hypothyroidism, unspecified; I25.10 Atherosclerotic heart disease of native coronary artery without angina pectoris; F17.210 Nicotine dependence, cigarettes, uncomplicated; G62.0 Drug-induced polyneuropathy; T45.1X5S Adverse effect of antineoplastic and immunosuppressive drugs, sequela; Z79.899 Other long term (current) drug therapy; Z79.01 Long term (current) use of anticoagulants; Z79.891 Long term (current) use of opiate analgesic; Z87.01 Personal history of pneumonia (recurrent); Z87.891 Personal history of nicotine dependence; Z90.49 Acquired absence of other specified parts of digestive tract
CPT/HCPCS: 36415; 36591; 80053; 83540; 83550; 85025; 86304; 99214

== ENCOUNTER 2020-02-21 11:01 | Outpatient (CLI) | payer MEDICARE, OTHER, SELFPAY ==
[2020-02-21 11:47] LABS: Basophils % 0.8 %; Eosinophils # 0.1 10^3/uL (0.0-0.8); Eosinophils % 2.9 %; Hematocrit 32.2 % (37.0-47.0); Hemoglobin 10.6 g/dL (11.5-15.3); Lymphocytes # 1.5 10^3/uL (0.8-4.8); Lymphocytes % 30.2 %; Mean Corpuscular HGB Conc 32.9 g/dL (30.0-36.0); Mean Corpuscular Hemoglobin 27.5 pg (28.0-34.0); Mean Corpuscular Volume 83.6 fL (81-99); Mean Platelet Volume 9.5 fL (7.4-10.4); Monocytes # 0.4 10^3/uL (0.2-0.9); Monocytes % 8.5 %; Neutrophils # 2.8 10^3/uL (1.8-7.7); Neutrophils % 57.4 %; Nucleated Red Blood Cells % 0 %; Platelet Count 168 10^3/cmm (130-400); Red Blood Count 3.85 10^6/uL (4.1-5.3); Red Cell Distribution Width 19.6 % (12.1-15.1); White Blood Count 4.8 10^3/uL (4.0-10.0)
[2020-02-21 11:54] LABS: Alanine Aminotransferase 9 U/L (0-33); Albumin Level 4.6 g/dL (3.5-5.2); Alkaline Phosphatase 82 IU/L (35-105); Anion Gap 14.5 (5-19); Aspartate Amino Transferase 16 U/L (0-32); Blood Urea Nitrogen 10 mg/dL (8-23); Calcium 9.7 mg/dL (8.5-10.5); Carbon Dioxide 30 mmol/L (22-29); Chloride 87 mmol/L (98-107); Globulin 3.2 g/dL (1.3-4.6); Glomerular Filtration Rate 72.9 mL/min (90-130); Glucose 100 mg/dL (65-115); Osmolality Calculated 260 mOsm/kg (285-295); Potassium 4.5 mmol/L (3.5-5.1); Sodium 127 mmol/L (136-145); Total Bilirubin 0.3 mg/dL (0.15-1.2); Total Protein 7.8 g/dL (6.6-8.7)
[2020-02-21 12:06] LABS: CA 125 9.3 U/mL (0-35)
--- NOTE | 2020-02-24 13:52 | ONC FU_ITS ---
Dr. Lynne Patient Follow-Up Note Patient: Nisreen Carrasco V Unit #: [id number]: 1960 Dicatated By: Ravi Lynne M.D.Date of Visit:February 21, 2020 Onc Med Follow-up/Prog Note Chief Complaint: Ovarian cancer History of Present Illness: This is a 59 year-old woman with recurrent ovarian cancer. She had optimal resection with her initial surgery back in May 2003. She had documented recurrence in July 2008, nearly 5 years after completion of adjuvant chemotherapy with 6 cycles of carboplatin/Taxol. She was retreated at that time with carboplatin/Taxol chemotherapy, but in combination with Avastin. Treatment was stopped after 4 cycles because of worsening neuropathy, but she did have a very good clinical response with normalization of the CA-125 level. She was then followed on observation. She did well until July 2012 when she presented with small bowel obstruction. Her Ca-125 level at that point had not increased and the obstruction initially did improve with conservative management. Ultimately, though, she was confirmed to have disease recurrence in the abdomen. She underwent surgery [facility] in October 2012. At laparotomy there were extensive adhesions in the abdomen, but there was recurrent tumor in the right mid abdomen and right upper quadrant. It was involving the cecum, the mesocolon, and the small bowel mesentery in a multiple twisted mass. There also was periaortic juanita involvement. She underwent right hemicolectomy and primary anastamosis of the bowel with complete resection of the mass. 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 She had gradual recovery from that procedure. In February 2013 she restarted chemotherapy with carboplatin in combination with gemcitabine. She experienced a significant hypersensitivity reaction to the carboplatin with the third cycle of treatment. She then continued chemotherapy with single agent gemcitabine. She experienced significant fatigue and myelosuppression with gemcitabine, even at a reduced dose level. She did not tolerate an attempt at dose escalation. She had some ongoing GI symptoms during this time, but no documented disease progression. She had a followup visit with Dr. David in January 2014. Her disease at that time appeared stable, and it was recommended that she stop chemotherapy again and just go back on observation. By May 2015 she was having significantly more abdominal pain and repeat CT abdomen/pelvis at that point was highly suspicious for recurrent metastatic disease at the site of the ileocolic anastomosis. That study showed no obvious metastatic involvement in the liver and no ascites. In June 2015 she restarted chemotherapy with weekly paclitaxel. She initially was tolerating it pretty well on a day 1/day 8 schedule every 3 weeks. She had presented at day 15 of her third cycle with severe abdominal pain and nausea. Repeat CT scan showed increasing soft tissue at the ileocolic anastomosis. There was a large amount of fecal material proximal to that site, and an area of stenosis was suspected. She did improve, though, with conservative management, and she subsequently was able to continue chemotherapy with weekly paclitaxel. As of November 2015 she had completed 7 cycles of treatment. Her chemotherapy was put on hold after her cycle 8 day 1 treatment due to diarrhea and increased abdominal pain. Abdominal x-rays showed just nonspecific gas pattern in the left abdomen. She had restaging CT abdomen/pelvis again on 01/13/2016. It showed no obstruction and no evidence of disease progression. There was no lymphadenopathy or ascites noted. Her symptoms had subsequently improved, and she did then proceed with her 9th cycle of chemotherapy. Beginning with cycle 10, I did have her change to a day 1/day 15 schedule. She had subsequently tolerated it much better. As of her follow-up visit on 08/06/2016, she appeared stable clinically, and at that point she continued with her 16th cycle of treatment. Her day 15 treatment with that cycle was not administered. She continued treatment with cycle 18 day 1 on 10/01/2016. On 10/06/2016 she was admitted to the hospital with pneumonia. CT pulmonary angiogram at that time showed no evidence of pulmonary emboli. There were widespread tree-in-bud pulmonary parenchymal nodularities and there was evidence of underlying chronic emphysema. There was new hilar or mediastinal lymphadenopathy noted, possibly reactive or neoplastic. Also noted was a superior segment left lower lobe pulmonary nodule measuring 8.4 mm. She did improve on antibiotic therapy, and she was discharged home on 10/10/2016. She had quit smoking just prior to the hospitalization. She did not receive day 15 treatment with that cycle. During subsequent follow-up, I opted to keep her chemotherapy on hold, as her disease had been very stable. Restaging CT scans of the chest, abdomen, and pelvis on 04/28/2017 showed resolved hilar and mediastinal adenopathy and resolved left lower lobe pulmonary nodule. There was stable appearance of the ileocolic anastomosis. There was no evidence of disease progression. Her other medical illnesses include hypertension, hypercholesterolemia and gastroesophageal reflux disease. She also has chronic obstructive pulmonary disease and she had a pretty severe episode of pneumonia in December 2008. She had stopped smoking following her hospitalization in September. 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 Other surgeries have been limited to tonsillectomy and tubal ligation. INTERIM HISTORY: Restaging CT scans of the chest, abdomen, and pelvis on 11/16/2018 showed unchanged medial middle lobe parenchymal opacity measuring 8-9 mm. Lingular and anterior left lower lobe subsegmental atelectasis and/or scarring also appeared unchanged. There was no evidence of disease progression in the chest, abdomen, or pelvis. In February 2019 she had presented with new onset of swelling in the right leg. Venous Doppler of the right leg on 03/09/2019 showed partially occlusive deep vein thrombosis of the superficial femoral vein with thrombus noted to extend into the greater saphenous vein. She began on anticoagulation with apixaban. Restaging CT scans on 03/22/2019 showed stable 8-9 mm pulmonary nodule in the right middle lobe. Right hilar and infrahilar hilar lymph nodes also appeared stable. Moderate right hydronephrosis with right ureterectasis appeared to be new. Slightly prominent right inguinal lymph nodes appeared unchanged. Overall, there was no evidence of disease progression in the chest, abdomen, or pelvis. She continued on observation/expectant management. In April 2019 a next generation sequencing study was performed on the specimen from her surgical resection in October 2012. It showed presence of a BRCA1 mutation, presumed to be somatic, as her original germline BRCA testing was negative. There were no other actionable mutations identified. She had come in last week for a scheduled port flushed. At that time she reported increased abdominal pain, mainly in the right lower quadrant and right groin area. It was noted that her CA-125 level, though still in normal range, had been increasing. At that point it was up to 14.0 U/mL compared to 8.6 U/mL in October 2018. Repeat CT abdomen/pelvis on 06/22/2019 showed enlarging soft tissue mass in the right side of the pelvis measuring 3.5 cm. This was noted to be in the area of surgical clips from her prior hysterectomy, and the appearance was felt to be consistent with local recurrence or metastatic adenopathy. The mass was noted to be adjacent to and possibly invading the psoas muscle. There was increasing hydronephrosis of the right kidney. She was referred to Dr. David. On 07/18/2019 she underwent exploratory laparotomy with extensive adhesive lysis and extensive retroperitoneal exploration and debulking of right pelvic/psoas muscle tumor. The tumor was noted to obstruct the right ureter, and the procedure included placement of a right ureteral stent. Pathology showed high-grade carcinoma which was PAX-8 and WT-1 positive. During follow-up she had ongoing problems with urinary tract infection and she continued to have significant pain in the right groin area and lower abdomen. Her repeat CT abdomen/pelvis on 12/12/2019 showed progression of a right pelvic mass compared to the June 2019 study. At that point it measured 5.8 x 3.8 x 6.5 cm and it was noted to encase the right ureter. It was inseparable from the distal small bowel loops and it was noted to abut the right L5-S1 disc space. There was interval placement of right ureteral stent with resolution of right hydronephrosis. With those findings and with the known BRCA mutation, she began a trial of therapy with olaparib 300 mg bid on 12/18/2019. She is seen for a scheduled visit. She has not been feeling good. She reports having pretty bad nausea with the olaparib and she also complains of having pain in her stomach all the time. She feels dragged out. She has limited activity. Her ECOG score is 2. She says her appetite is still pretty good. She has not had fever. She does have some hot flashes. She says the neuropathy is worse in her legs. She has shortness of breath with activity and she has some cough, which is chronic. She has had some chest pain when she is walking too fast or too far. She has heartburn despite taking Nexium twice a day. She has ongoing problems with constipation, which she is managing with MiraLAX and milk of magnesia. She says she thinks she has a urinary tract infection again, as she is having urinary frequency and dysuria. She started Macrobid 2 days ago. She has fairly generalized arthritis pain and she has chronic pain in her neck and back. She has had some headaches and she sometimes has dizziness. Medications: Ativan 1 mg (of 1 mg) Tablet Oral at bedtime PRN, Duragesic-100 2 Patch(es) (of 100 mcg) Patch 72 Hr Transdermal q 3 days, Enalapril Maleate 1 (20 mg) Tablet Oral b.i.d., Lactulose Solution Oral PRN, Levothroid 1 (50 mcg) Tablet Oral daily, Linzess 1 - 2 Capsule (of 145 mcg) Oral daily, Lyrica 1 Capsule (of 75 mg) Oral b.i.d., Macrobid 1 Capsule (of 100 mg) Oral b.i.d. PRN, MiraLax Pack Oral daily, Mucinex Maximum Strength 1 Tablet (of 1200 mg) Tablet SR 12 HR Oral b.i.d. PRN, NexIUM 1 (40 mg) Capsule Delayed Release Oral b.i.d., OxyCODONE HCl 1 (20 mg) Tablet Oral q 4 hours PRN, Proventil HFA Aerosol, solution Inhalation PRN, Soma 1 (350 mg) Tablet Oral t.i.d., TRAZADONE 1 (100 mg) Tablet Oral at bedtime, Venlafaxine HCl 1 (150 mg) Capsule SR 24 HR Oral daily, Xarelto 1 Tablet (of 10 mg) Oral daily Allergies: Carboplatin Review of Systems: Constitutional - Her energy level low. She has not been feeling good. She is mainly sedentary. Appetite is pretty good and weight is up a few pounds from last visit. No fever or chills. She's been having hot flashes. No sweats. ECOG score is 2, ENMT - She has some sinus congestion/drainage. No mouth sores. No sore throat or difficulty swallowing, Hematologic/Lymphatic - No abnormal bruising or bleeding, Respiratory - She gets short of breath with activity. She has a cough. No pleuritic pain or hemoptysis, Cardiovascular - No angina pain. No palpitations, Gastrointestinal - No nausea or vomiting. She is having heartburn despite taking Nexium. She is using MOM and Miralax for constipation. No blood in the stool or black stools, Genitourinary (F) - She has dysuria or hematuria. She has urinary frequency. No urgency or incontinence. She is currently taking Macrobid, Musculoskeletal - She has generalized arthirtis pain, Integumentary - No skin complications, Neurologic - She has been having headaches. No dizziness. She has chronic neuropathy, Psychiatric - She has anxiety and depression. She doesn't sleep well. Vital Signs: Performed on February 21, 2020 12:34 Height - 67.00 in Weight - 137.4 lbs (HIGH) BSA - 1.72 sq.m BMI - 21.52 Temperature - 98.5 F Pulse - 79 /min Respiration - 18 /min BP - 176/89 mm(hg) (HIGH) O2 Sat - 93 % (LOW) Pain - 8 Physical Examination: Constitutional - She appears somewhat weak generally and she appears chronically ill, Eyes - Sclerae nonicteric. Conjunctivae clear, ENMT - Mouth is dry and there is a slight coating on the tongue. There are no other lesions noted in the oral cavity, Hematologic/Lymphatic - No cervical, clavicular, or axillary adenopathy, Respiratory - Lungs show diminished air movement bilaterally. There is slight wheezing on the right, Cardiovascular - Heart rhythm is regular. There is no murmur, gallop, or rub noted, Abdomen - Mildly distended. She has generalized mild abdominal tenderness. Liver and spleen are not enlarged. There is no abdominal mass or ascites noted. There is no inguinal adenopathy, Extremities - No edema, Neurologic - No focal neurologic deficits noted. Lab/Imaging: Test performed on February 21, 2020 11:15 Sodium 127 mmol/L Potassium 4.5 mmol/L Chloride 87 mmol/L CO2 30 mmol/L Anion Gap 14.5 BUN 10 mg/dL Creatinine 0.8 mg/dL Cr Clearance (Est) 72.66 mL/min eGFR 72.9 mL/min Glucose 100 mg/dL Calcium 9.7 mg/dL Protein, Total 7.8 g/dL Albumin 4.6 g/dL Globulin 3.2 g/dL Bilirubin, Total 0.3 mg/dL ALT (SGPT) 9 U/L AST (SGOT) 16 U/L Alkaline Phosphatase 82 IU/L WBC 4.8 10 3/uL RBC 3.85 10 6/uL HGB 10.6 g/dL HCT 32.2 % MCV 83.6 fL MCH 27.5 pg MCHC 32.9 g/dL RDW 19.6 % Platelet Count 168 10 3/cmm MPV 9.5 fL Neutrophils 2.8 10 3/uL Lymphocytes 1.5 10 3/uL Monocytes 0.4 10 3/uL Eosinophils 0.1 10 3/uL Basophils 0.0 10 3/uL Neutrophil % 57.4 % Lymphocyte % 30.2 % Monocyte % 8.5 % Eosinophil % 2.9 % Basophils % 0.8 % CA-125 9.3 U/mL Impression: 1. Patient with recurrent ovarian cancer. By next generation sequencing her tumor was noted to harbor a BRCA1 mutation, presumed somatic, as her original testing for germline BRCA was negative. Her tumor also was tested and found to be MSI stable with intact mismatch repair proteins. 2. She had optimal debulking following initial diagnosis in May 2003, and she received adjuvant chemotherapy with 6 cycles of carboplatin/paclitaxel. 3. She had further treatment with 4 cycles of carboplatin/paclitaxel in combination with Avastin following documented recurrence in July 2008. 4. She had restarted chemotherapy with carboplatin/gemcitabine in February 2013 following a surgical debulking procedure for disease progression with associated bowel obstruction. Her treatment was subsequently modified to single agent gemcitabine as a result of a hypersensitivity reaction to carboplatin. She had some response to the chemotherapy. As of January 2014 her disease was felt to be stable, and she was then observed off treatment. 5.. In May 2015 she restarted chemotherapy with weekly paclitaxel. Following her cycle 18 treatment on 09/17/2016 she had another hospital admission for pneumonia. As her disease had been stable and her performance status had been declining, her chemotherapy at that point was put on hold. Her other medical illnesses include: 6. Hypertension. 7. Hyperlipidemia. 8. GERD. 9. COPD. 10. Degenerative disease of the spine with chronic back pain. 9. Chronic anxiety/depression. 10. She has nicotine dependence (cigarettes). During follow-up she has continued to have multiple chronic complaints, including abdominal pain and constipation along with fatigue, insomnia, back pain, and neuropathy from her previous chemotherapy. She also has significant underlying COPD, and she has been having chronic cystitis symptoms. In February 2019 she presented with swelling in the right leg, she was found to have deep vein thrombosis by venous Doppler. She has since then been on anticoagulation with apixaban. Her restaging CT scans in March 2019 showed no obvious disease progression in the chest, abdomen, or pelvis, but there was evidence of new moderate right hydronephrosis with dilatation of the right proximal ureter. She then presented recently with increased pain in the right lower quadrant of the abdomen and right groin area. There has been a gradual increase in her CA-125 level. Her repeat CT abdomen/pelvis on 06/22/2019 shows a 3.5 cm soft tissue mass in the right pelvis suspicious for local recurrence or lymphadenopathy, and there is also increasing right hydronephrosis. Overall, the findings were consistent with progression of the ovarian cancer. She was referred to Dr. David and on 07/18/2019 she underwent exploratory laparotomy with adhesolysis and with debulking of the right pelvic tumor. He tumor was obstructing the right ureter, and the procedure also included placement of a right ureteral stent. She had gradual recovery from the surgery. During subsequent follow-up she continued to have very limited activity and she had ongoing problems with recurrent urinary tract infection associated with the ureteral stent. She also continues to have significant pain in the lower abdomen/right groin area, and a repeat CT abdomen/pelvis on 12/12/2019 showed progression of a right pelvic mass compared to the June 2019 study. At that point it measured 5.8 x 3.8 x 6.5 cm and it was noted to encase the right ureter. It was inseparable from the distal small bowel loops and it was noted to abut the right L5-S1 disc space. There was interval placement of right ureteral stent with resolution of right hydronephrosis. With those findings and with the known BRCA mutation, she began trial of therapy with olaparib 300 mg bid on 12/18/2019. Initially she was tolerating it pretty well, but more recently she has been having significant nausea and abdominal pain, and she also reports worsening fatigue. There has been a significant decline in the Ca1 25 level. Plan: She is to stop treatment now and if her symptoms improve, she can then restart olaparib with the dosage reduced to 200 mg twice daily. She will be scheduled for a follow-up visit in 1 month. Signed By: Ravi Lynne M.D. <<Signature on File>>
== END 2020-02-21 11:02 | disposition home or self-care (01) ==
LOC: ONCMED 11:01
PROVIDERS: Visit Provider Internal Medicine Medical Oncology
DX: C56.1 Malignant neoplasm of right ovary (principal); C79.89 Secondary malignant neoplasm of other specified sites; D50.9 Iron deficiency anemia, unspecified; I10 Essential (primary) hypertension; E78.5 Hyperlipidemia, unspecified; K21.9 Gastro-esophageal reflux disease without esophagitis; J44.9 Chronic obstructive pulmonary disease, unspecified; M47.9 Spondylosis, unspecified; F41.8 Other specified anxiety disorders; F17.210 Nicotine dependence, cigarettes, uncomplicated; N30.20 Other chronic cystitis without hematuria; G47.00 Insomnia, unspecified; R53.83 Other fatigue; R11.0 Nausea; G62.0 Drug-induced polyneuropathy; T45.1X5A Adverse effect of antineoplastic and immunosuppressive drugs, initial encounter; Z92.21 Personal history of antineoplastic chemotherapy; Z79.899 Other long term (current) drug therapy
CPT/HCPCS: 36591; 80053; 85025; 86304; 99214

== ENCOUNTER 2020-03-20 12:41 | Outpatient (CLI) | payer MEDICARE, OTHER, SELFPAY ==
--- NOTE | 2020-03-20 12:54 | USCV_ITS ---
Nisreen Carrasco Age: 59 Gender: F : 1960 Exam Date: 03/20/2020 13:21 Ordering Phys: Ravi Lynne MD Technologist: Dee Montgomery Exam Location: [facility] – [place] Indication: RECHECK OF PRIOR THROMBUS HISTORY: History of thrombus in Rt. prox GSV that extended into the Rt CFV PROCEDURES: Comparison:. 03/09/19 Venous duplex imaging was performed in only the right lower extremity. The following venous structures were evaluated: common femoral vein, profunda vein, proximal portion of the greater saphenous vein, superficial femoral vein, and the popliteal vein. In addition, the posterior tibial and peroneal trunk were evaluated. Serial compression, augmentation maneuvers, and spectral Doppler flow evaluation were performed. FINDINGS: Mildly thickened wall of proximal GSV, area of previously described thrombus. No additional thrombus or DVT. CONCLUSIONS No DVT right lower extremity. Chronic residual wall thickening proximal GSV. Dr. Tracy Caal DO (Electronically Signed) Final Date: 20 March 2020 16:21 S
== END 2020-03-20 12:42 | disposition home or self-care (01) ==
LOC: RAD 12:45
PROVIDERS: Visit Provider Internal Medicine Medical Oncology
DX: I82.401 Acute embolism and thrombosis of unspecified deep veins of right lower extremity (principal)
CPT/HCPCS: 93971

== ENCOUNTER 2020-03-21 09:18 | Outpatient (CLI) | payer MEDICARE, OTHER, SELFPAY ==
[2020-03-21 10:49] LABS: Add Urine Microscopic? NO
[2020-03-21 10:58] LABS: Bilirubin Urine Neg (NEGATIVE); Blood Urine Neg (Negative); Glucose Urine UA Norm (Normal); Ketones Urine Negative (Negative); Leukocyte Esterase Urine Negative (Negative); Nitrate Urine Negative (Negative); Protein Urine Neg (Negative); Sulfosalicylic Acid Urine Negative (Negative); Urine Appearance Clear (CLEAR); Urine Color Straw (Yellow); Urobilinogen Urine Norm (Negative); pH Urine 8 (5-7)
--- NOTE | 2020-03-21 20:25 | ONC FU_ITS ---
Dr. Lynne Patient Follow-Up Note Patient: Nisreen Carrasco V Unit #: [id number]: [id number] Dicatated By: Ravi Lynne M.D.Date of Visit:Mar 21, 2020 Onc Med Follow-up/Prog Note Chief Complaint: Ovarian cancer History of Present Illness: This is a 59 year-old woman with recurrent ovarian cancer. She had optimal resection with her initial surgery back in May 2003. She had documented recurrence in July 2008, nearly 5 years after completion of adjuvant chemotherapy with 6 cycles of carboplatin/Taxol. She was retreated at that time with carboplatin/Taxol chemotherapy, but in combination with Avastin. Treatment was stopped after 4 cycles because of worsening neuropathy, but she did have a very good clinical response with normalization of the CA-125 level. She was then followed on observation. She did well until July 2012 when she presented with small bowel obstruction. Her Ca-125 level at that point had not increased and the obstruction initially did improve with conservative management. Ultimately, though, she was confirmed to have disease recurrence in the abdomen. She underwent surgery at [facility] in October 2012. At laparotomy there were extensive adhesions in the abdomen, but there was recurrent tumor in the right mid abdomen and right upper quadrant. It was involving the cecum, the mesocolon, and the small bowel mesentery in a multiple twisted mass. There also was periaortic juanita involvement. She underwent right hemicolectomy and primary anastamosis of the bowel with complete resection of the mass. 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 She had gradual recovery from that procedure. In February 2013 she restarted chemotherapy with carboplatin in combination with gemcitabine. She experienced a significant hypersensitivity reaction to the carboplatin with the third cycle of treatment. She then continued chemotherapy with single agent gemcitabine. She experienced significant fatigue and myelosuppression with gemcitabine, even at a reduced dose level. She did not tolerate an attempt at dose escalation. She had some ongoing GI symptoms during this time, but no documented disease progression. She had a followup visit with Dr. David in January 2014. Her disease at that time appeared stable, and it was recommended that she stop chemotherapy again and just go back on observation. By May 2015 she was having significantly more abdominal pain and repeat CT abdomen/pelvis at that point was highly suspicious for recurrent metastatic disease at the site of the ileocolic anastomosis. That study showed no obvious metastatic involvement in the liver and no ascites. In June 2015 she restarted chemotherapy with weekly paclitaxel. She initially was tolerating it pretty well on a day 1/day 8 schedule every 3 weeks. She had presented at day 15 of her third cycle with severe abdominal pain and nausea. Repeat CT scan showed increasing soft tissue at the ileocolic anastomosis. There was a large amount of fecal material proximal to that site, and an area of stenosis was suspected. She did improve, though, with conservative management, and she subsequently was able to continue chemotherapy with weekly paclitaxel. As of November 2015 she had completed 7 cycles of treatment. Her chemotherapy was put on hold after her cycle 8 day 1 treatment due to diarrhea and increased abdominal pain. Abdominal x-rays showed just nonspecific gas pattern in the left abdomen. She had restaging CT abdomen/pelvis again on 01/13/2016. It showed no obstruction and no evidence of disease progression. There was no lymphadenopathy or ascites noted. Her symptoms had subsequently improved, and she did then proceed with her 9th cycle of chemotherapy. Beginning with cycle 10, I did have her change to a day 1/day 15 schedule. She had subsequently tolerated it much better. As of her follow-up visit on 08/06/2016, she appeared stable clinically, and at that point she continued with her 16th cycle of treatment. Her day 15 treatment with that cycle was not administered. She continued treatment with cycle 18 day 1 on 10/01/2016. On 10/06/2016 she was admitted to the hospital with pneumonia. CT pulmonary angiogram at that time showed no evidence of pulmonary emboli. There were widespread tree-in-bud pulmonary parenchymal nodularities and there was evidence of underlying chronic emphysema. There was new hilar or mediastinal lymphadenopathy noted, possibly reactive or neoplastic. Also noted was a superior segment left lower lobe pulmonary nodule measuring 8.4 mm. She did improve on antibiotic therapy, and she was discharged home on 10/10/2016. She had quit smoking just prior to the hospitalization. She did not receive day 15 treatment with that cycle. During subsequent follow-up, I opted to keep her chemotherapy on hold, as her disease had been very stable. Restaging CT scans of the chest, abdomen, and pelvis on 04/28/2017 showed resolved hilar and mediastinal adenopathy and resolved left lower lobe pulmonary nodule. There was stable appearance of the ileocolic anastomosis. There was no evidence of disease progression. Her other medical illnesses include hypertension, hypercholesterolemia and gastroesophageal reflux disease. She also has chronic obstructive pulmonary disease and she had a pretty severe episode of pneumonia in December 2008. She had stopped smoking following her hospitalization in September. 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 Other surgeries have been limited to tonsillectomy and tubal ligation. INTERIM HISTORY: Restaging CT scans of the chest, abdomen, and pelvis on 11/16/2018 showed unchanged medial middle lobe parenchymal opacity measuring 8-9 mm. Lingular and anterior left lower lobe subsegmental atelectasis and/or scarring also appeared unchanged. There was no evidence of disease progression in the chest, abdomen, or pelvis. In February 2019 she had presented with new onset of swelling in the right leg. Venous Doppler of the right leg on 03/09/2019 showed partially occlusive deep vein thrombosis of the superficial femoral vein with thrombus noted to extend into the greater saphenous vein. She began on anticoagulation with apixaban. Restaging CT scans on 03/22/2019 showed stable 8-9 mm pulmonary nodule in the right middle lobe. Right hilar and infrahilar hilar lymph nodes also appeared stable. Moderate right hydronephrosis with right ureterectasis appeared to be new. Slightly prominent right inguinal lymph nodes appeared unchanged. Overall, there was no evidence of disease progression in the chest, abdomen, or pelvis. She continued on observation/expectant management. In April 2019 a next generation sequencing study was performed on the specimen from her surgical resection in October 2012. It showed presence of a BRCA1 mutation, presumed to be somatic, as her original germline BRCA testing was negative. There were no other actionable mutations identified. She had come in last week for a scheduled port flushed. At that time she reported increased abdominal pain, mainly in the right lower quadrant and right groin area. It was noted that her CA-125 level, though still in normal range, had been increasing. At that point it was up to 14.0 U/mL compared to 8.6 U/mL in October 2018. Repeat CT abdomen/pelvis on 06/22/2019 showed enlarging soft tissue mass in the right side of the pelvis measuring 3.5 cm. This was noted to be in the area of surgical clips from her prior hysterectomy, and the appearance was felt to be consistent with local recurrence or metastatic adenopathy. The mass was noted to be adjacent to and possibly invading the psoas muscle. There was increasing hydronephrosis of the right kidney. She was referred to Dr. David. On 07/18/2019 she underwent exploratory laparotomy with extensive adhesive lysis and extensive retroperitoneal exploration and debulking of right pelvic/psoas muscle tumor. The tumor was noted to obstruct the right ureter, and the procedure included placement of a right ureteral stent. Pathology showed high-grade carcinoma which was PAX-8 and WT-1 positive. During follow-up she had ongoing problems with urinary tract infection and she continued to have significant pain in the right groin area and lower abdomen. Her repeat CT abdomen/pelvis on 12/12/2019 showed progression of a right pelvic mass compared to the June 2019 study. At that point it measured 5.8 x 3.8 x 6.5 cm and it was noted to encase the right ureter. It was inseparable from the distal small bowel loops and it was noted to abut the right L5-S1 disc space. There was interval placement of right ureteral stent with resolution of right hydronephrosis. With those findings and with the known BRCA mutation, she began a trial of therapy with olaparib 300 mg bid on 12/18/2019. As of her follow-up visit on 02/21/2020 she was still having significant pain in the right lower quadrant area and she also was reporting increased nausea and fatigue. There had been a significant decline in her Ca1 25 level. I had suspect that at least some of her symptoms were treatment related. She continued the olaparib, but with the dosage reduced to 200 mg twice daily. Subsequent to that visit she had 2 hospitalizations at [facility], only by 4 5 days. On both occasions she had bowel obstruction which was relieved with conservative management. She is seen for a followup visit. She is beginning to feel little better following the recent hospitalizations. She has been running significantly elevated blood pressure, and she also has been having persistent swelling in her right leg. She did have a venous Doppler yesterday which showed some chronic residual wall thickening in the proximal GSV, but no evidence for thrombosis. She says her energy is a little better now, and she has been doing some light work at home. She has good appetite. She has not had fever. She does have hot flashes and sweating. She has shortness of breath, though overall her breathing is better. She does not have much cough, and she does not complain of chest pain. She has been having a little nausea in the mornings. She has had no further vomiting. She has some acid reflux, but that has improved now with Carafate. She is still having significant pain in her mid and lower abdominal area. Her bowels are a little slow, despite taking MiraLAX twice a day. Bladder function remains adequate, though she says she is having some pain with urination. She has chronic back pain, and she also has neuropathy pain in her legs and feet. Medications: Ativan 1 mg (of 1 mg) Tablet Oral at bedtime PRN, Duragesic-100 2 Patch(es) (of 100 mcg) Patch 72 Hr Transdermal q 3 days, Enalapril Maleate 1 (20 mg) Tablet Oral b.i.d., Lactulose Solution Oral PRN, Levothroid 1 (50 mcg) Tablet Oral daily, Lyrica 1 Capsule (of 75 mg) Oral b.i.d., Magnesium 1 Capsule Oral daily, MiraLax Pack Oral daily, Mucinex Maximum Strength 1 Tablet (of 1200 mg) Tablet SR 12 HR Oral b.i.d. PRN, NexIUM 1 (40 mg) Capsule Delayed Release Oral b.i.d., OxyCODONE HCl 1 (20 mg) Tablet Oral q 4 hours PRN, Potassium 1 Tablet (of 100 mg) Oral daily, Proventil HFA Aerosol, solution Inhalation PRN, Soma 1 (350 mg) Tablet Oral t.i.d., Sucralfate 2 tsp (of 1 g/10mL) Suspension Oral four times a day, TRAZADONE 1 (100 mg) Tablet Oral at bedtime, Venlafaxine HCl 1 (150 mg) Capsule SR 24 HR Oral daily, Xarelto 1 Tablet (of 10 mg) Oral daily, Zofran 1 Tablet (of 4 mg) Oral q 4 hours Allergies: Carboplatin Review of Systems: Constitutional - She is generally feeling okay. Her energy is a little better. She is doing some light housework. Her appetite is good and weight is down nearly 10 pounds from last visit. No fever, night sweats, or hot flashes. ECOG score is 1, ENMT - She has sinus drainage. No mouth sores. No sore throat or difficulty swallowing, Hematologic/Lymphatic - No abnormal bruising or bleeding, Respiratory - She has shortness of breath. No cough. No pleuritic pain or hemoptysis, Cardiovascular - No angina pain. No palpitations, Gastrointestinal - She has some nausea mainly in the mornings that is well controlled with Zofran. No vomiting. She is having increased heartburn that was not controlled adequately with Nexium. She was recently placed on Carafate. She is having abdominal pain. No diarrhea. She is having mild constipation. No blood in the stool or black stools, Genitourinary (F) - She is having pain with urination. No hematuria. No urinary frequency. No urgency or incontinence, Musculoskeletal - She has chronic back pain and she is also having pain in her feet, Neurologic - She sometimes has headache and she has some dizziness. She has neuropathy in her legs and feet, Psychiatric - She has chronic anxiety/depression. No insomnia. Vital Signs: Performed on Mar 21, 2020 09:35 Height - 67.00 in Weight - 128.2 lbs (LOW) BSA - 1.67 sq.m BMI - 20.08 Temperature - 97.6 F (LOW) Pulse - 91 /min Respiration - 24 /min BP - 202/96 mm(hg) (HIGH) O2 Sat - 93 % (LOW) Pain - 7 Physical Examination: Constitutional - She appears chronically ill, Eyes - Sclerae nonicteric. Conjunctivae clear, ENMT - No lesions noted in the oral cavity, Hematologic/Lymphatic - No cervical, clavicular, or axillary adenopathy, Respiratory - Lungs sound clear with diminished air movement bilaterally, Cardiovascular - Heart rhythm is regular. There is no murmur, gallop, or rub noted, Abdomen - Mildly distended. There is mild generalized abdominal tenderness. Liver and spleen are not enlarged. There is no abdominal mass or ascites noted. There is no inguinal adenopathy, Extremities - There is slight swelling of the right leg, Neurologic - No focal neurologic deficits noted. Impression: 1. Patient with recurrent ovarian cancer. By next generation sequencing her tumor was noted to harbor a BRCA1 mutation, presumed somatic, as her original testing for germline BRCA was negative. Her tumor also was tested and found to be MSI stable with intact mismatch repair proteins. 2. She had optimal debulking following initial diagnosis in May 2003, and she received adjuvant chemotherapy with 6 cycles of carboplatin/paclitaxel. 3. She had further treatment with 4 cycles of carboplatin/paclitaxel in combination with Avastin following documented recurrence in July 2008. 4. She had restarted chemotherapy with carboplatin/gemcitabine in February 2013 following a surgical debulking procedure for disease progression with associated bowel obstruction. Her treatment was subsequently modified to single agent gemcitabine as a result of a hypersensitivity reaction to carboplatin. She had some response to the chemotherapy. As of January 2014 her disease was felt to be stable, and she was then observed off treatment. 5.. In May 2015 she restarted chemotherapy with weekly paclitaxel. Following her cycle 18 treatment on 09/17/2016 she had another hospital admission for pneumonia. As her disease had been stable and her performance status had been declining, her chemotherapy at that point was put on hold. Her other medical illnesses include: 6. Hypertension. 7. Hyperlipidemia. 8. GERD. 9. COPD. 10. Degenerative disease of the spine with chronic back pain. 9. Chronic anxiety/depression. 10. She has nicotine dependence (cigarettes). During follow-up she has continued to have multiple chronic complaints, including abdominal pain and constipation along with fatigue, insomnia, back pain, and neuropathy from her previous chemotherapy. She also has significant underlying COPD, and she has been having chronic cystitis symptoms. In February 2019 she presented with swelling in the right leg, she was found to have deep vein thrombosis by venous Doppler. She has since then been on anticoagulation with apixaban. Her restaging CT scans in March 2019 showed no obvious disease progression in the chest, abdomen, or pelvis, but there was evidence of new moderate right hydronephrosis with dilatation of the right proximal ureter. She then presented recently with increased pain in the right lower quadrant of the abdomen and right groin area. There has been a gradual increase in her CA-125 level. Her repeat CT abdomen/pelvis on 06/22/2019 shows a 3.5 cm soft tissue mass in the right pelvis suspicious for local recurrence or lymphadenopathy, and there is also increasing right hydronephrosis. Overall, the findings were consistent with progression of the ovarian cancer. She was referred to Dr. David and on 07/18/2019 she underwent exploratory laparotomy with adhesolysis and with debulking of the right pelvic tumor. He tumor was obstructing the right ureter, and the procedure also included placement of a right ureteral stent. She had gradual recovery from the surgery. During subsequent follow-up she continued to have very limited activity and she had ongoing problems with recurrent urinary tract infection associated with the ureteral stent. She also continues to have significant pain in the lower abdomen/right groin area, and a repeat CT abdomen/pelvis on 12/12/2019 showed progression of a right pelvic mass compared to the June 2019 study. At that point it measured 5.8 x 3.8 x 6.5 cm and it was noted to encase the right ureter. It was inseparable from the distal small bowel loops and it was noted to abut the right L5-S1 disc space. There was interval placement of right ureteral stent with resolution of right hydronephrosis. With those findings and with the known BRCA mutation, she began trial of therapy with olaparib 300 mg bid on 12/18/2019. Initially she was tolerating it pretty well. As of her followup visit on 02/21/2020 she was having significant nausea and abdominal pain, and she also reported worsening fatigue. I had suspected that at least some of those symptoms were treatment related. However, that point there also had been a significant decline in the CA-125 level. She was advised to continue the olaparib, but with the dosage reduced to 200 mg twice daily. Subsequent to that visit she had 2 hospitalizations at [facility]. Both were for bowel obstruction, and on both occasions it resolved with conservative management. At this point she is feeling a little better generally. She does have a significantly elevated blood pressure. She also has been having persistent swelling in the right leg, though with no evidence of thrombosis on her recent venous Doppler. She continues to have significant abdominal pain and she is still having some nausea, though without vomiting. Bowel and bladder function have remained adequate. Plan: She will restart olaparib at the previous dosage. She will continue enalapril 20 mg twice daily, and I will now add amlodipine 5 mg daily. She will be watching her blood pressure at home. Her pain regimen will remain the same. She will be scheduled for a follow-up visit in 3 weeks. Signed By: Ravi Lynne M.D. <<Signature on File>>
== END 2020-03-21 09:19 | disposition home or self-care (01) ==
LOC: ONCMED 09:20
PROVIDERS: Visit Provider Internal Medicine Medical Oncology
DX: C56.1 Malignant neoplasm of right ovary (principal); D50.9 Iron deficiency anemia, unspecified; F32.9 Major depressive disorder, single episode, unspecified; G60.9 Hereditary and idiopathic neuropathy, unspecified; E03.9 Hypothyroidism, unspecified; J44.9 Chronic obstructive pulmonary disease, unspecified; E78.00 Pure hypercholesterolemia, unspecified; F41.9 Anxiety disorder, unspecified; I10 Essential (primary) hypertension; K21.9 Gastro-esophageal reflux disease without esophagitis; D64.9 Anemia, unspecified; F17.210 Nicotine dependence, cigarettes, uncomplicated; Z92.21 Personal history of antineoplastic chemotherapy; Z79.899 Other long term (current) drug therapy
CPT/HCPCS: 81003; 99214

== ENCOUNTER 2020-04-10 14:28 | Outpatient (CLI) | payer MEDICARE, OTHER, SELFPAY ==
[2020-04-10 15:00] LABS: Basophils # 0.1 10^3/uL (0.0-0.1); Eosinophils # 0.1 10^3/uL (0.0-0.8); Eosinophils % 2.4 %; Hematocrit 31.4 % (37.0-47.0); Hemoglobin 9.8 g/dL (11.5-15.3); Lymphocytes # 1.5 10^3/uL (0.8-4.8); Lymphocytes % 28.5 %; Mean Corpuscular HGB Conc 31.2 g/dL (30.0-36.0); Mean Corpuscular Hemoglobin 26.6 pg (28.0-34.0); Mean Corpuscular Volume 85.3 fL (81-99); Mean Platelet Volume 10.1 fL (7.4-10.4); Monocytes # 0.4 10^3/uL (0.2-0.9); Monocytes % 8.4 %; Neutrophils % 59.5 %; Nucleated Red Blood Cells % 0 %; Platelet Count 166 10^3/cmm (130-400); Red Blood Count 3.68 10^6/uL (4.1-5.3); Red Cell Distribution Width 15.9 % (12.1-15.1); White Blood Count 5.1 10^3/uL (4.0-10.0)
[2020-04-10 15:29] LABS: Alanine Aminotransferase 8 U/L (0-33); Albumin Level 4.2 g/dL (3.5-5.2); Alkaline Phosphatase 76 IU/L (35-105); Anion Gap 14.5 (5-19); Aspartate Amino Transferase 14 U/L (0-32); Blood Urea Nitrogen 8 mg/dL (8-23); CA 125 6.7 U/mL (0-35); Calcium 9.1 mg/dL (8.5-10.5); Carbon Dioxide 29 mmol/L (22-29); Chloride 90 mmol/L (98-107); Glomerular Filtration Rate 85.1 mL/min (90-130); Glucose 123 mg/dL (65-115); Osmolality Calculated 265 mOsm/kg (285-295); Potassium 4.5 mmol/L (3.5-5.1); Sodium 129 mmol/L (136-145); Total Bilirubin 0.3 mg/dL (0.15-1.2); Total Protein 7.2 g/dL (6.6-8.7)
--- NOTE | 2020-04-10 17:22 | ONC FU_ITS ---
Dr. Lynne Patient Follow-Up Note Patient: Nisreen Carrasco V Unit #: [id number]: [id number] Dicatated By: Ravi Lynne M.D.Date of Visit:Apr 10, 2020 Onc Med Follow-up/Prog Note Chief Complaint: Ovarian cancer History of Present Illness: This is a 59 year-old woman with recurrent ovarian cancer. She had optimal resection with her initial surgery back in May 2003. She had documented recurrence in July 2008, nearly 5 years after completion of adjuvant chemotherapy with 6 cycles of carboplatin/Taxol. She was retreated at that time with carboplatin/Taxol chemotherapy, but in combination with Avastin. Treatment was stopped after 4 cycles because of worsening neuropathy, but she did have a very good clinical response with normalization of the CA-125 level. She was then followed on observation. She did well until July 2012 when she presented with small bowel obstruction. Her Ca-125 level at that point had not increased and the obstruction initially did improve with conservative management. Ultimately, though, she was confirmed to have disease recurrence in the abdomen. She underwent surgery at [facility] in October 2012. At laparotomy there were extensive adhesions in the abdomen, but there was recurrent tumor in the right mid abdomen and right upper quadrant. It was involving the cecum, the mesocolon, and the small bowel mesentery in a multiple twisted mass. There also was periaortic juanita involvement. She underwent right hemicolectomy and primary anastamosis of the bowel with complete resection of the mass. 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 She had gradual recovery from that procedure. In February 2013 she restarted chemotherapy with carboplatin in combination with gemcitabine. She experienced a significant hypersensitivity reaction to the carboplatin with the third cycle of treatment. She then continued chemotherapy with single agent gemcitabine. She experienced significant fatigue and myelosuppression with gemcitabine, even at a reduced dose level. She did not tolerate an attempt at dose escalation. She had some ongoing GI symptoms during this time, but no documented disease progression. She had a followup visit with Dr. David in January 2014. Her disease at that time appeared stable, and it was recommended that she stop chemotherapy again and just go back on observation. By May 2015 she was having significantly more abdominal pain and repeat CT abdomen/pelvis at that point was highly suspicious for recurrent metastatic disease at the site of the ileocolic anastomosis. That study showed no obvious metastatic involvement in the liver and no ascites. In June 2015 she restarted chemotherapy with weekly paclitaxel. She initially was tolerating it pretty well on a day 1/day 8 schedule every 3 weeks. She had presented at day 15 of her third cycle with severe abdominal pain and nausea. Repeat CT scan showed increasing soft tissue at the ileocolic anastomosis. There was a large amount of fecal material proximal to that site, and an area of stenosis was suspected. She did improve, though, with conservative management, and she subsequently was able to continue chemotherapy with weekly paclitaxel. As of November 2015 she had completed 7 cycles of treatment. Her chemotherapy was put on hold after her cycle 8 day 1 treatment due to diarrhea and increased abdominal pain. Abdominal x-rays showed just nonspecific gas pattern in the left abdomen. She had restaging CT abdomen/pelvis again on 01/13/2016. It showed no obstruction and no evidence of disease progression. There was no lymphadenopathy or ascites noted. Her symptoms had subsequently improved, and she did then proceed with her 9th cycle of chemotherapy. Beginning with cycle 10, I did have her change to a day 1/day 15 schedule. She had subsequently tolerated it much better. As of her follow-up visit on 08/06/2016, she appeared stable clinically, and at that point she continued with her 16th cycle of treatment. Her day 15 treatment with that cycle was not administered. She continued treatment with cycle 18 day 1 on 10/01/2016. On 10/06/2016 she was admitted to the hospital with pneumonia. CT pulmonary angiogram at that time showed no evidence of pulmonary emboli. There were widespread tree-in-bud pulmonary parenchymal nodularities and there was evidence of underlying chronic emphysema. There was new hilar or mediastinal lymphadenopathy noted, possibly reactive or neoplastic. Also noted was a superior segment left lower lobe pulmonary nodule measuring 8.4 mm. She did improve on antibiotic therapy, and she was discharged home on 10/10/2016. She had quit smoking just prior to the hospitalization. She did not receive day 15 treatment with that cycle. During subsequent follow-up, I opted to keep her chemotherapy on hold, as her disease had been very stable. Restaging CT scans of the chest, abdomen, and pelvis on 04/28/2017 showed resolved hilar and mediastinal adenopathy and resolved left lower lobe pulmonary nodule. There was stable appearance of the ileocolic anastomosis. There was no evidence of disease progression. Her other medical illnesses include hypertension, hypercholesterolemia and gastroesophageal reflux disease. She also has chronic obstructive pulmonary disease and she had a pretty severe episode of pneumonia in December 2008. She had stopped smoking following her hospitalization in September. 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 Other surgeries have been limited to tonsillectomy and tubal ligation. INTERIM HISTORY: Restaging CT scans of the chest, abdomen, and pelvis on 11/16/2018 showed unchanged medial middle lobe parenchymal opacity measuring 8-9 mm. Lingular and anterior left lower lobe subsegmental atelectasis and/or scarring also appeared unchanged. There was no evidence of disease progression in the chest, abdomen, or pelvis. In February 2019 she had presented with new onset of swelling in the right leg. Venous Doppler of the right leg on 03/09/2019 showed partially occlusive deep vein thrombosis of the superficial femoral vein with thrombus noted to extend into the greater saphenous vein. She began on anticoagulation with apixaban. Restaging CT scans on 03/22/2019 showed stable 8-9 mm pulmonary nodule in the right middle lobe. Right hilar and infrahilar hilar lymph nodes also appeared stable. Moderate right hydronephrosis with right ureterectasis appeared to be new. Slightly prominent right inguinal lymph nodes appeared unchanged. Overall, there was no evidence of disease progression in the chest, abdomen, or pelvis. She continued on observation/expectant management. In April 2019 a next generation sequencing study was performed on the specimen from her surgical resection in October 2012. It showed presence of a BRCA1 mutation, presumed to be somatic, as her original germline BRCA testing was negative. There were no other actionable mutations identified. She had come in last week for a scheduled port flushed. At that time she reported increased abdominal pain, mainly in the right lower quadrant and right groin area. It was noted that her CA-125 level, though still in normal range, had been increasing. At that point it was up to 14.0 U/mL compared to 8.6 U/mL in October 2018. Repeat CT abdomen/pelvis on 06/22/2019 showed enlarging soft tissue mass in the right side of the pelvis measuring 3.5 cm. This was noted to be in the area of surgical clips from her prior hysterectomy, and the appearance was felt to be consistent with local recurrence or metastatic adenopathy. The mass was noted to be adjacent to and possibly invading the psoas muscle. There was increasing hydronephrosis of the right kidney. She was referred to Dr. David. On 07/18/2019 she underwent exploratory laparotomy with extensive adhesive lysis and extensive retroperitoneal exploration and debulking of right pelvic/psoas muscle tumor. The tumor was noted to obstruct the right ureter, and the procedure included placement of a right ureteral stent. Pathology showed high-grade carcinoma which was PAX-8 and WT-1 positive. During follow-up she had ongoing problems with urinary tract infection and she continued to have significant pain in the right groin area and lower abdomen. Her repeat CT abdomen/pelvis on 12/12/2019 showed progression of a right pelvic mass compared to the June 2019 study. At that point it measured 5.8 x 3.8 x 6.5 cm and it was noted to encase the right ureter. It was inseparable from the distal small bowel loops and it was noted to abut the right L5-S1 disc space. There was interval placement of right ureteral stent with resolution of right hydronephrosis. With those findings and with the known BRCA mutation, she began a trial of therapy with olaparib 300 mg bid on 12/18/2019. As of her follow-up visit on 02/21/2020 she was still having significant pain in the right lower quadrant area and she also was reporting increased nausea and fatigue. There had been a significant decline in her Ca1 25 level. I had suspect that at least some of her symptoms were treatment related. She continued the olaparib, but with the dosage reduced to 200 mg twice daily. Subsequent to that visit she had 2 hospitalizations at [facility], only by 4 or 5 days. On both occasions she had bowel obstruction which was relieved with conservative management. I had seen her for a follow-up visit on 03/21/2020. She was beginning to feel better. She continued the olaparib at 200 mg twice daily. She is seen for a scheduled visit. She has been feeling pretty good, though she still does not have a whole lot of energy. She is able to do light work. ECOG score is 1. She complains that she has no appetite. She also still has some nausea, which she attributes to the olaparib. Her weight has stabilized. She has not had fever or night sweats. She does have some hot flashes. She has shortness of breath and cough. She is on oxygen at night. She does not complain of chest pain. She still sometimes has acid reflux. She has constipation, her bowels are working. She is not having much abdominal pain now. She does complain that she is losing bladder control and she has some pain with urination. She has back pain and she has some generalized aching. She continues to have significant neuropathy in her legs and feet and also sometimes in her hands. Medications: Ativan 1 mg (of 1 mg) Tablet Oral at bedtime PRN, Duragesic-100 2 Patch(es) (of 100 mcg) Patch 72 Hr Transdermal q 3 days, Enalapril Maleate 1 (20 mg) Tablet Oral b.i.d., Lactulose Solution Oral PRN, Levothroid 1 (50 mcg) Tablet Oral daily, Lyrica 1 Capsule (of 75 mg) Oral b.i.d., Magnesium 1 Capsule Oral daily, MiraLax Pack Oral daily, Mucinex Maximum Strength 1 Tablet (of 1200 mg) Tablet SR 12 HR Oral b.i.d. PRN, NexIUM 1 (40 mg) Capsule Delayed Release Oral b.i.d., Norvasc 1 Tablet (of 5 mg) Oral daily, OxyCODONE HCl 1 (20 mg) Tablet Oral q 4 hours PRN, Potassium 1 Tablet (of 100 mg) Oral daily, Proventil HFA Aerosol, solution Inhalation PRN, Soma 1 (350 mg) Tablet Oral t.i.d., Sucralfate 2 tsp (of 1 g/10mL) Suspension Oral four times a day, TRAZADONE 1 (100 mg) Tablet Oral at bedtime, Venlafaxine HCl 1 (150 mg) Capsule SR 24 HR Oral daily, Xarelto 1 Tablet (of 10 mg) Oral daily, Zofran 1 Tablet (of 4 mg) Oral q 4 hours Allergies: Carboplatin Review of Systems: Constitutional - She does not have a whole lot of energy. She is doing some light housework. She has no appetite, but her weight is stable. No fever or night sweats. She has some hot flashes. ECOG score is 1, ENMT - She has sinus drainage. No mouth sores. No sore throat or difficulty swallowing, Hematologic/Lymphatic - No abnormal bruising or bleeding, Respiratory - She has shortness of breath. She is on oxygen at night. She has cough. No pleuritic pain or hemoptysis, Cardiovascular - No angina pain. No palpitations, Gastrointestinal - She has some nausea, mainly in the mornings, which she thinks is related to the olaparib. No vomiting. She sometimes has some acid reflux. She is not having much abdominal pain now. No diarrhea. She has some constipation. No blood in the stool or black stools, Genitourinary (F) - She has pain with urination. She is having some incontinence. No hematuria, Musculoskeletal - She has chronic back pain, Neurologic - She does not complain of headache. She sometimes has dizziness. She has neuropathy in her legs and feet and sometimes in her hands, Psychiatric - She has chronic anxiety/depression. No insomnia. Vital Signs: Performed on Apr 10, 2020 16:14 Height - 67.00 in Weight - 130.0 lbs (HIGH) BSA - 1.68 sq.m BMI - 20.36 Temperature - 98.6 F Pulse - 84 /min Respiration - 18 /min BP - 149/89 mm(hg) (HIGH) O2 Sat - 92 % (LOW) Pain - 5 Physical Examination: Constitutional - She looks a little better generally, Eyes - Sclerae nonicteric. Conjunctivae clear, ENMT - No lesions noted in the oral cavity, Hematologic/Lymphatic - No cervical, clavicular, or axillary adenopathy, Respiratory - Lungs sound clear with diminished air movement bilaterally, Cardiovascular - Heart rhythm is regular. There is no murmur, gallop, or rub noted, Abdomen - Soft. There is mild tenderness in the lower abdomen. Liver and spleen are not enlarged. There is no abdominal mass or ascites noted. There is no inguinal adenopathy, Extremities - No edema, Neurologic - No focal neurologic deficits noted. Lab/Imaging: Test performed on Apr 10, 2020 14:45 Sodium 129 mmol/L Potassium 4.5 mmol/L Chloride 90 mmol/L CO2 29 mmol/L Anion Gap 14.5 BUN 8 mg/dL Creatinine 0.7 mg/dL Cr Clearance (Est) 78.57 mL/min eGFR 85.1 mL/min Glucose 123 mg/dL Calcium 9.1 mg/dL Protein, Total 7.2 g/dL Albumin 4.2 g/dL Globulin 3.0 g/dL Bilirubin, Total 0.3 mg/dL ALT (SGPT) 8 U/L AST (SGOT) 14 U/L Alkaline Phosphatase 76 IU/L WBC 5.1 10 3/uL RBC 3.68 10 6/uL HGB 9.8 g/dL HCT 31.4 % MCV 85.3 fL MCH 26.6 pg MCHC 31.2 g/dL RDW 15.9 % Platelet Count 166 10 3/cmm MPV 10.1 fL Neutrophils 3.0 10 3/uL Lymphocytes 1.5 10 3/uL Monocytes 0.4 10 3/uL Eosinophils 0.1 10 3/uL Basophils 0.1 10 3/uL Neutrophil % 59.5 % Lymphocyte % 28.5 % Monocyte % 8.4 % Eosinophil % 2.4 % Basophils % 1.0 % NRBC % 0 % CA-125 6.7 U/mL Impression: 1. Patient with recurrent ovarian cancer. By next generation sequencing her tumor was noted to harbor a BRCA1 mutation, presumed somatic, as her original testing for germline BRCA was negative. Her tumor also was tested and found to be MSI stable with intact mismatch repair proteins. 2. She had optimal debulking following initial diagnosis in May 2003, and she received adjuvant chemotherapy with 6 cycles of carboplatin/paclitaxel. 3. She had further treatment with 4 cycles of carboplatin/paclitaxel in combination with Avastin following documented recurrence in July 2008. 4. She had restarted chemotherapy with carboplatin/gemcitabine in February 2013 following a surgical debulking procedure for disease progression with associated bowel obstruction. Her treatment was subsequently modified to single agent gemcitabine as a result of a hypersensitivity reaction to carboplatin. She had some response to the chemotherapy. As of January 2014 her disease was felt to be stable, and she was then observed off treatment. 5.. In May 2015 she restarted chemotherapy with weekly paclitaxel. Following her cycle 18 treatment on 09/17/2016 she had another hospital admission for pneumonia. As her disease had been stable and her performance status had been declining, her chemotherapy at that point was put on hold. Her other medical illnesses include: 6. Hypertension. 7. Hyperlipidemia. 8. GERD. 9. COPD. 10. Degenerative disease of the spine with chronic back pain. 9. Chronic anxiety/depression. 10. She has nicotine dependence (cigarettes). During follow-up she has continued to have multiple chronic complaints, including abdominal pain and constipation along with fatigue, insomnia, back pain, and neuropathy from her previous chemotherapy. She also has significant underlying COPD, and she has been having chronic cystitis symptoms. In February 2019 she presented with swelling in the right leg, she was found to have deep vein thrombosis by venous Doppler. She has since then been on anticoagulation with apixaban. Her restaging CT scans in March 2019 showed no obvious disease progression in the chest, abdomen, or pelvis, but there was evidence of new moderate right hydronephrosis with dilatation of the right proximal ureter. She then presented recently with increased pain in the right lower quadrant of the abdomen and right groin area. There has been a gradual increase in her CA-125 level. Her repeat CT abdomen/pelvis on 06/22/2019 shows a 3.5 cm soft tissue mass in the right pelvis suspicious for local recurrence or lymphadenopathy, and there is also increasing right hydronephrosis. Overall, the findings were consistent with progression of the ovarian cancer. She was referred to Dr. David and on 07/18/2019 she underwent exploratory laparotomy with adhesolysis and with debulking of the right pelvic tumor. He tumor was obstructing the right ureter, and the procedure also included placement of a right ureteral stent. She had gradual recovery from the surgery. During subsequent follow-up she continued to have very limited activity and she had ongoing problems with recurrent urinary tract infection associated with the ureteral stent. She also continues to have significant pain in the lower abdomen/right groin area, and a repeat CT abdomen/pelvis on 12/12/2019 showed progression of a right pelvic mass compared to the June 2019 study. At that point it measured 5.8 x 3.8 x 6.5 cm and it was noted to encase the right ureter. It was inseparable from the distal small bowel loops and it was noted to abut the right L5-S1 disc space. There was interval placement of right ureteral stent with resolution of right hydronephrosis. With those findings and with the known BRCA mutation, she began trial of therapy with olaparib 300 mg bid on 12/18/2019. Initially she was tolerating it pretty well. As of her followup visit on 02/21/2020 she was having significant nausea and abdominal pain, and she also reported worsening fatigue. I had suspected that at least some of those symptoms were treatment related. However, that point there also had been a significant decline in the CA-125 level. She was advised to continue the olaparib, but with the dosage reduced to 200 mg twice daily. Subsequent to that visit she had 2 hospitalizations at [facility]. Both were for bowel obstruction, and on both occasions it resolved with conservative management. As of her follow-up visit on 03/21/2020 she was beginning to feel better, and she continued the olaparib at 200 mg twice daily. Her symptoms have since then continued to show improvement, though she still has limited activity tolerance, and she continues to have nausea and anorexia with the olaparib. She remains mildly anemic. However, she does appear to be showing a good response to the olaparib, as there has been a very significant decline in the CA-125 level. Plan: She will continue olaparib at 200 mg bid. She will continue enalapril 20 mg twice daily for the hypertension. If her blood pressure gets high, she will add amlodipine 2.5 mg daily, as her pressure had bottomed out with 5 mg. She will be scheduled for a followup visit in one month. In the meantime, I will check urinalysis and culture today. I also will have her start Marinol 5 mg twice daily for nausea/anorexia, but that will be subject to verification of insurance coverage. Signed By: Ravi Lynne M.D. <<Signature on File>>
== END 2020-04-10 14:29 | disposition home or self-care (01) ==
LOC: ONCMED 14:33
PROVIDERS: Visit Provider Internal Medicine Medical Oncology
DX: C56.1 Malignant neoplasm of right ovary (principal); C79.89 Secondary malignant neoplasm of other specified sites; D64.9 Anemia, unspecified; N39.41 Urge incontinence; R30.9 Painful micturition, unspecified; R11.0 Nausea; R63.0 Anorexia; I10 Essential (primary) hypertension; E78.5 Hyperlipidemia, unspecified; K21.9 Gastro-esophageal reflux disease without esophagitis; J44.9 Chronic obstructive pulmonary disease, unspecified; M19.90 Unspecified osteoarthritis, unspecified site; F41.8 Other specified anxiety disorders; F17.210 Nicotine dependence, cigarettes, uncomplicated; N30.20 Other chronic cystitis without hematuria; Z86.718 Personal history of other venous thrombosis and embolism; Z79.899 Other long term (current) drug therapy; Z96.0 Presence of urogenital implants
CPT/HCPCS: 36591; 80053; 85025; 86304; 99214

== ENCOUNTER 2020-04-12 09:01 | Outpatient (CLI) | payer MEDICARE, OTHER, SELFPAY ==
--- NOTE | 2020-04-12 09:30 | XRR_ITS ---
PROCEDURE INFORMATION: Exam: XR Abdomen, 1 View Exam date and time: 04/12/2020 9:22 AM Age: 59 years old Clinical indication: Other: Ureteral obstruction TECHNIQUE: Imaging protocol: XR of the abdomen. Views: Frontal supine view of the abdomen. 1 View. COMPARISON: CR XR KUB [id number] 11/29/2019 8:42 AM FINDINGS: Tubes, catheters and devices: Right double-J catheter again demonstrated. Gastrointestinal tract: Prominent gastric air and stool. Intraperitoneal space: Scattered surgical clips. Nonvisualization of the left lateral abdomen. Bones/joints: Degenerative change. Soft tissues: Injection granuloma. XR/XR KUB [id number] IMPRESSION: Prominent gastric air and stool.
== END 2020-04-12 09:02 | disposition home or self-care (01) ==
LOC: RAD 09:04
PROVIDERS: PCP Internal Medicine Medical Oncology; Visit Provider Urology
DX: N13.5 Crossing vessel and stricture of ureter without hydronephrosis (principal); N39.0 Urinary tract infection, site not specified
CPT/HCPCS: 74018; 81001

== ENCOUNTER 2020-04-25 10:54 | Day surgery (SDC) | payer MEDICARE, OTHER, SELFPAY ==
[2020-04-24 12:39] VITALS: BMI 20.3
--- NOTE | 2020-04-25 | SCC_ITS ---
Procedure Done: 1. Cystoscopy, exchange right ureteral stent 10.8 seconds of fluoroscopic guidance, for a cumulative dose of 1.54 mGy, was provided to Dr. Cooper by the radiology department. C-arm images of the abdomen were saved for the patient's permanent record. [facility]
--- NOTE | 2020-04-25 11:03 | SC_ITS ---
WS: [id number] C-ARM RADIOGRAPHS ABDOMEN; 2 IMAGES HISTORY: Cystoscopy right ureteral stent exchange COMPARISON: None available. Intraoperative imaging during RIGHT ureteral stent replacement. AK/C-arm FL for Urology IMPRESSION: Intraoperative imaging during exchange of a RIGHT ureteral stent.
[2020-04-25 11:12] VITALS: BP 188/102; PULSE 88; RESP 16; TEMP 36.6; O2SAT 91
[2020-04-25] MEDS: sodium chloride 0.9% 1,000 ML 30 ML IV (11:20)
--- NOTE | 2020-04-25 11:29 | ANES.PREANE2 ---
Pre-Anesthetic Assessment Pre-Anesthetic Assessment: Height/Weight: Height 1.7 m Weight 58.967 kg Temp Pulse Resp BP Pulse Ox 98 F 88 16 188/102 91 04/25/20 11:12 04/25/20 11:12 04/25/20 11:12 04/25/20 11:12 04/25/20 11:12 Preop Diagnosis: Chronic right ureteral obstruction from malignant source Proposed Procedure: Operation Date: 04/25/20 13:00 Proposed Procedures s Cystoscopy 23353 N13.5(Not Applicable) - Jake Cooper MD p Ureteral Stent Exchange 25775 N13.5(Right) - Jake Cooper MD Last intake: Intake Last Liquid Date 04/25/20 Last Liquid Time 05:00 Last Solid Date 04/24/20 Last Solid Time 17:00 Social: Social History: Tobacco and No alcohol Exam: Pre-Anes Outpt Exam: alert, oriented x 3, clear to auscultation bilaterally and regular rate & rhythm Airway: Submandibular: WNL Cervical ROM: WNL MP: 2 Dentition: Other (mult missing, poor dentaition) History/ROS: No significant history except as noted Pulmonary: Pulmonary: COPD, NICOLAS and SOB Comments: O2 at night and sometimes during the day CV/HEM: CV/HEM: HTN : Comments: hydronephrosis Hepatic: Hepatic: None reported GI: GI: GERD (controlled) Metabolic: Metabolic: Thyroid Musc/skel: Musc/skel: Lower Back Pain and OA/DJD Neuropsych: Neuropsych: Anxiety and Depression Anesthetic Plan: ASA status: 3 Anesthesia: Anesthesia Evaluation, General and MAC Risk of > 500 ml blood loss (7ml/kg in children): No Meds/Allergies Current Medications: Current Medications Generic Name Dose Route Start Last Admin Trade Name Freq PRN Reason Stop Dose Admin Sodium Chloride 1,000 mls @ 30 ml s/hr 04/25/20 08:30 04/25/20 11:20 Sodium Chloride 0.9% IV 04/26/20 08:29 30 mls/hr .Q24H MORRIS Administration PFSH Anesthesia PFSH: Medical History Extrinsic ureteral obstruction Hydronephrosis, right Ovarian cancer on right Pelvic pain in female Recurrent UTI Secondary malignant neoplasm of other specified sites Surgical History History of hysterectomy with bilateral oophorectomy History of right hemicolectomy Family History Mother , at age 59 Cancer breast Myocardial infarction (lateral wall) Father Cancer prostate cancer Pacemaker Other CAD (coronary artery disease) Hypertension Social History Smoking and tobacco status: current every day smoker Alcohol intake: never Adopted: No Caregiver/support person: No Lives independently: No Household members: spouse Marital status: Current occupational status: disabled History of recent travel: No Female Reproductive History: Date of last menstrual period: 12/01/19 Data Anesthesia Cardiac Studies: No Data to Display
[2020-04-25 11:54] VITALS: RESP 16
[2020-04-25] MEDS: fentaNYL 50 mcg/mL INJ 2mL IVP (11:54)
--- NOTE | 2020-04-25 13:10 | W.PM.OPSUD ---
Surgery/Procedure H&P Update DATE OF PROCEDURE: April 25, 2020 DATE H&P PERFORMED: 04/12/20 H&P UPDATE INFORMATION: I have reviewed H&P completed within last 30 days, I have examined patient prior to procedure, No changes to prior documentation and H&P is in [facility] [place] [facility] EMR on date indicated CHANGES TO PREVIOUS DOCUMENTATION: Questions answered. Ready to proceed. PREOP DIAGNOSIS: Chronic right ureteral obstruction from malignant source PLANNED PROCEDURE: Operation Date: 04/25/20 13:00 Proposed Procedures s Cystoscopy 15292 N13.5(Not Applicable) - Jake Cooper MD p Ureteral Stent Exchange 29989 N13.5(Right) - Jake Cooper MD
--- NOTE | 2020-04-25 13:11 | PM.OP ---
Operative Report Date of procedure: April 25, 2020 Pre-op Diagnosis: Chronic right ureteral obstruction from malignant source Post-op diagnosis: same Procedure Done: 1. Cystoscopy, exchange right ureteral stent Pathology: none sent Surgeon: Kenneth Anesthesia: MAC Estimated blood loss: Minimal Urine output: Not measured Complications: None Findings: Stent easily removed. Replaced with 6 Beninese by 22?30 multi-coil stent. Condition: stable Disposition: same day Brief History: Nisreen is a very pleasant 59-year-old white female with a history of incompletely resected malignancy in the pelvis that led to obstruction of her right ureter. She has been maintained with an indwelling ureteral stent since that was discovered. Back now for routine stent change. Procedure: After routine preoperative evaluation examination and obtaining of informed consent she was taken to the operating suite on 04/25/2020 where general anesthesia was administered without difficulty after appropriate timeout was performed, SCDs confirmed to be functioning, preoperative antibiotics administered, beta-priya protocol confirmed. Prepped and draped in usual sterile fashion in dorsolithotomy position pain careful attention to avoiding pressure points. 21 Beninese cystoscope with 30 degree lens was introduced into the urethral meatus and advanced into the bladder under videoscopy. The bladder was systematically examined with no gross abnormality. The stent was easily identifiable and not encrusted. A flexible tip guidewire was attempted to be passed next to the stent but could not be passed beyond the narrowed area previously identified. The distal aspect of the stent was grasped with grasping forceps and withdrawn through the urethral meatus and a flexible tip guidewire was then advanced without difficulty through the stent into the renal pelvis and the stent was removed. The cystoscope was then backloaded over the guidewire and a 6 Beninese 22 x 30 multi-coil stent was easily advanced over the guidewire through the cystoscope into appropriate position as confirmed via fluoroscopy and cystoscopy. Stent was confirmed to be draining, bladder drained, procedure completed. She tolerated the procedure well without complications and was awakened in the operating room and returned to recovery in stable condition. PLANS: 1. Follow-up in approximately 4 months with a KUB with anticipated stent change thereafter. 2. Given the good status of the stent with a lack of encrustation there is the option to continue stretching the interval out between stent changes.
[2020-04-25] MEDS: levofloxacin-dextrose 5 % 500 MG/100 ML PREMIX 100 MG IV (13:17)
[2020-04-25] MEDS: iohexol 300 mg/mL 50 mL Btl (OR ONLY) XX (13:44)
[2020-04-25 13:47] VITALS: BP 148/75; PULSE 89; RESP 18; TEMP 37.2; O2SAT 97
[2020-04-25 14:03] VITALS: BP 138/74; PULSE 88; RESP 18; TEMP 36.6; O2SAT 96
== END 2020-04-25 14:45 | disposition home or self-care (01) ==
PROVIDERS: PCP Internal Medicine Medical Oncology; Visit Provider Urology
PROC: 0TJB8ZZ Inspection of Bladder, Via Natural or Artificial Opening Endoscopic (ICD-10-PCS; CPT 52000; principal; 2020-04-25 12:40)
PROC: (CPT 52332; 2020-04-25 12:40)
DX: N20.1 Calculus of ureter (principal); J44.9 Chronic obstructive pulmonary disease, unspecified; Z99.81 Dependence on supplemental oxygen; K21.9 Gastro-esophageal reflux disease without esophagitis; M19.90 Unspecified osteoarthritis, unspecified site; F41.9 Anxiety disorder, unspecified; F32.9 Major depressive disorder, single episode, unspecified; Z85.43 Personal history of malignant neoplasm of ovary; F17.210 Nicotine dependence, cigarettes, uncomplicated
CPT/HCPCS: 52332; 12345; 76000; 96374; C2625; J1956; J2704; J3010; J7030

== ENCOUNTER 2020-05-08 11:48 | Outpatient (CLI) | payer MEDICARE, OTHER, SELFPAY ==
[2020-05-08 12:25] LABS: Basophils % 0.9 %; Eosinophils # 0.1 10^3/uL (0.0-0.8); Eosinophils % 2.6 %; Hematocrit 32.4 % (37.0-47.0); Lymphocytes # 1.3 10^3/uL (0.8-4.8); Lymphocytes % 29.6 %; Mean Corpuscular HGB Conc 30.9 g/dL (30.0-36.0); Mean Corpuscular Hemoglobin 25.9 pg (28.0-34.0); Mean Corpuscular Volume 83.9 fL (81-99); Mean Platelet Volume 9.3 fL (7.4-10.4); Monocytes # 0.4 10^3/uL (0.2-0.9); Monocytes % 9.2 %; Neutrophils # 2.45 10^3/uL (1.8-7.7); Neutrophils % 57.5 %; Nucleated Red Blood Cells % 0 %; Platelet Count 155 10^3/cmm (130-400); Red Blood Count 3.86 10^6/uL (4.1-5.3); Red Cell Distribution Width 15.3 % (12.1-15.1); White Blood Count 4.3 10^3/uL (4.0-10.0)
[2020-05-08 12:41] LABS: Alanine Aminotransferase 7 U/L (0-33); Albumin Level 4.5 g/dL (3.5-5.2); Alkaline Phosphatase 72 IU/L (35-105); Anion Gap 11.7 (5-19); Aspartate Amino Transferase 14 U/L (0-32); Blood Urea Nitrogen 6 mg/dL (8-23); Calcium 9.4 mg/dL (8.5-10.5); Carbon Dioxide 31 mmol/L (22-29); Chloride 91 mmol/L (98-107); Globulin 2.5 g/dL (1.3-4.6); Glomerular Filtration Rate 85.1 mL/min (90-130); Glucose 90 mg/dL (65-115); Osmolality Calculated 263 mOsm/kg (285-295); Potassium 4.7 mmol/L (3.5-5.1); Sodium 129 mmol/L (136-145); Total Bilirubin 0.2 mg/dL (0.15-1.2)
[2020-05-08 13:29] LABS: CA 125 6.8 U/mL (0-35)
--- NOTE | 2020-05-08 19:11 | ONC FU_ITS ---
Dr. Lynne Patient Follow-Up Note Patient: Nisreen Carrasco V Unit #: [id number]: [id number] Dicatated By: Ravi Lynne M.D.Date of Visit:May 08, 2020 Onc Med Follow-up/Prog Note Chief Complaint: Ovarian cancer History of Present Illness: This is a 59 year-old woman with recurrent ovarian cancer. She had optimal resection with her initial surgery back in May 2003. She had documented recurrence in July 2008, nearly 5 years after completion of adjuvant chemotherapy with 6 cycles of carboplatin/Taxol. She was retreated at that time with carboplatin/Taxol chemotherapy, but in combination with Avastin. Treatment was stopped after 4 cycles because of worsening neuropathy, but she did have a very good clinical response with normalization of the CA-125 level. She was then followed on observation. She did well until July 2012 when she presented with small bowel obstruction. Her Ca-125 level at that point had not increased and the obstruction initially did improve with conservative management. Ultimately, though, she was confirmed to have disease recurrence in the abdomen. She underwent surgery at [facility] in October 2012. At laparotomy there were extensive adhesions in the abdomen, but there was recurrent tumor in the right mid abdomen and right upper quadrant. It was involving the cecum, the mesocolon, and the small bowel mesentery in a multiple twisted mass. There also was periaortic juanita involvement. She underwent right hemicolectomy and primary anastamosis of the bowel with complete resection of the mass. 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 She had gradual recovery from that procedure. In February 2013 she restarted chemotherapy with carboplatin in combination with gemcitabine. She experienced a significant hypersensitivity reaction to the carboplatin with the third cycle of treatment. She then continued chemotherapy with single agent gemcitabine. She experienced significant fatigue and myelosuppression with gemcitabine, even at a reduced dose level. She did not tolerate an attempt at dose escalation. She had some ongoing GI symptoms during this time, but no documented disease progression. She had a followup visit with Dr. David in January 2014. Her disease at that time appeared stable, and it was recommended that she stop chemotherapy again and just go back on observation. By May 2015 she was having significantly more abdominal pain and repeat CT abdomen/pelvis at that point was highly suspicious for recurrent metastatic disease at the site of the ileocolic anastomosis. That study showed no obvious metastatic involvement in the liver and no ascites. In June 2015 she restarted chemotherapy with weekly paclitaxel. She initially was tolerating it pretty well on a day 1/day 8 schedule every 3 weeks. She had presented at day 15 of her third cycle with severe abdominal pain and nausea. Repeat CT scan showed increasing soft tissue at the ileocolic anastomosis. There was a large amount of fecal material proximal to that site, and an area of stenosis was suspected. She did improve, though, with conservative management, and she subsequently was able to continue chemotherapy with weekly paclitaxel. As of November 2015 she had completed 7 cycles of treatment. Her chemotherapy was put on hold after her cycle 8 day 1 treatment due to diarrhea and increased abdominal pain. Abdominal x-rays showed just nonspecific gas pattern in the left abdomen. She had restaging CT abdomen/pelvis again on 01/13/2016. It showed no obstruction and no evidence of disease progression. There was no lymphadenopathy or ascites noted. Her symptoms had subsequently improved, and she did then proceed with her 9th cycle of chemotherapy. Beginning with cycle 10, I did have her change to a day 1/day 15 schedule. She had subsequently tolerated it much better. As of her follow-up visit on 08/06/2016, she appeared stable clinically, and at that point she continued with her 16th cycle of treatment. Her day 15 treatment with that cycle was not administered. She continued treatment with cycle 18 day 1 on 10/01/2016. On 10/06/2016 she was admitted to the hospital with pneumonia. CT pulmonary angiogram at that time showed no evidence of pulmonary emboli. There were widespread tree-in-bud pulmonary parenchymal nodularities and there was evidence of underlying chronic emphysema. There was new hilar or mediastinal lymphadenopathy noted, possibly reactive or neoplastic. Also noted was a superior segment left lower lobe pulmonary nodule measuring 8.4 mm. She did improve on antibiotic therapy, and she was discharged home on 10/10/2016. She had quit smoking just prior to the hospitalization. She did not receive day 15 treatment with that cycle. During subsequent follow-up, I opted to keep her chemotherapy on hold, as her disease had been very stable. Restaging CT scans of the chest, abdomen, and pelvis on 04/28/2017 showed resolved hilar and mediastinal adenopathy and resolved left lower lobe pulmonary nodule. There was stable appearance of the ileocolic anastomosis. There was no evidence of disease progression. Her other medical illnesses include hypertension, hypercholesterolemia and gastroesophageal reflux disease. She also has chronic obstructive pulmonary disease and she had a pretty severe episode of pneumonia in December 2008. She had stopped smoking following her hospitalization in September. 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 Other surgeries have been limited to tonsillectomy and tubal ligation. INTERIM HISTORY: Restaging CT scans of the chest, abdomen, and pelvis on 11/16/2018 showed unchanged medial middle lobe parenchymal opacity measuring 8-9 mm. Lingular and anterior left lower lobe subsegmental atelectasis and/or scarring also appeared unchanged. There was no evidence of disease progression in the chest, abdomen, or pelvis. In February 2019 she had presented with new onset of swelling in the right leg. Venous Doppler of the right leg on 03/09/2019 showed partially occlusive deep vein thrombosis of the superficial femoral vein with thrombus noted to extend into the greater saphenous vein. She began on anticoagulation with apixaban. Restaging CT scans on 03/22/2019 showed stable 8-9 mm pulmonary nodule in the right middle lobe. Right hilar and infrahilar hilar lymph nodes also appeared stable. Moderate right hydronephrosis with right ureterectasis appeared to be new. Slightly prominent right inguinal lymph nodes appeared unchanged. Overall, there was no evidence of disease progression in the chest, abdomen, or pelvis. She continued on observation/expectant management. In April 2019 a next generation sequencing study was performed on the specimen from her surgical resection in October 2012. It showed presence of a BRCA1 mutation, presumed to be somatic, as her original germline BRCA testing was negative. There were no other actionable mutations identified. She had come in last week for a scheduled port flushed. At that time she reported increased abdominal pain, mainly in the right lower quadrant and right groin area. It was noted that her CA-125 level, though still in normal range, had been increasing. At that point it was up to 14.0 U/mL compared to 8.6 U/mL in October 2018. Repeat CT abdomen/pelvis on 06/22/2019 showed enlarging soft tissue mass in the right side of the pelvis measuring 3.5 cm. This was noted to be in the area of surgical clips from her prior hysterectomy, and the appearance was felt to be consistent with local recurrence or metastatic adenopathy. The mass was noted to be adjacent to and possibly invading the psoas muscle. There was increasing hydronephrosis of the right kidney. She was referred to Dr. David. On 07/18/2019 she underwent exploratory laparotomy with extensive adhesive lysis and extensive retroperitoneal exploration and debulking of right pelvic/psoas muscle tumor. The tumor was noted to obstruct the right ureter, and the procedure included placement of a right ureteral stent. Pathology showed high-grade carcinoma which was PAX-8 and WT-1 positive. During follow-up she had ongoing problems with urinary tract infection and she continued to have significant pain in the right groin area and lower abdomen. Her repeat CT abdomen/pelvis on 12/12/2019 showed progression of a right pelvic mass compared to the June 2019 study. At that point it measured 5.8 x 3.8 x 6.5 cm and it was noted to encase the right ureter. It was inseparable from the distal small bowel loops and it was noted to abut the right L5-S1 disc space. There was interval placement of right ureteral stent with resolution of right hydronephrosis. With those findings and with the known BRCA mutation, she began a trial of therapy with olaparib 300 mg bid on 12/18/2019. As of her follow-up visit on 02/21/2020 she was still having significant pain in the right lower quadrant area and she also was reporting increased nausea and fatigue. There had been a significant decline in her CA 125 level. I had suspect that at least some of her symptoms were treatment related. She continued the olaparib, but with the dosage reduced to 200 mg twice daily. Subsequent to that visit she had 2 hospitalizations at [facility], only by 4 or 5 days. On both occasions she had bowel obstruction which was relieved with conservative management. I had seen her for a follow-up visit on 03/21/2020. She was beginning to feel better. There was further decline in the CA 125 level to 6.7 U/mL compared to 32.8 U/mL on 12/26/2019. She continued the olaparib at 200 mg twice daily. She is seen for a scheduled visit. She has not been feeling good. For the past 1 to 2 weeks she has been having more pain in her right leg. She also complains that the right side of her back has been hurting, though typically the left side bothers her more. The neuropathy in her legs and feet is also worse. She says she has no energy to do anything. She is making herself do some light work at home. ECOG score is 1. She has no appetite. Her weight is down 4 pounds. She has not had fever. She now has just occasional hot flashes. She has shortness of breath. She does not have much cough. She does not complain of chest pain. She still has some nausea. She has been having more constipation during the past month, and she has been having more difficulty getting her bowels to move. She has been having abdominal pain on the left side in association with defecation. Bladder function has been okay lately. She recently had her stent replaced. She has had some headaches, and she also complains of dizziness. She has numbness in her hands and feet. Medications: Ativan 1 mg (of 1 mg) Tablet Oral at bedtime PRN, Duragesic-100 2 Patch(es) (of 100 mcg) Patch 72 Hr Transdermal q 3 days, Enalapril Maleate 1 (20 mg) Tablet Oral b.i.d., Lactulose Solution Oral PRN, Levothroid 1 (50 mcg) Tablet Oral daily, Lyrica 1 Capsule (of 75 mg) Oral b.i.d., Magnesium 1 Capsule Oral daily, MiraLax Pack Oral daily, Mucinex Maximum Strength 1 Tablet (of 1200 mg) Tablet SR 12 HR Oral b.i.d. PRN, NexIUM 1 (40 mg) Capsule Delayed Release Oral b.i.d., Norvasc 1 Tablet (of 5 mg) Oral daily, OxyCODONE HCl 1 (20 mg) Tablet Oral q 4 hours PRN, Potassium 1 Tablet (of 100 mg) Oral daily, Proventil HFA Aerosol, solution Inhalation PRN, Soma 1 (350 mg) Tablet Oral t.i.d., Sucralfate 2 tsp (of 1 g/10mL) Suspension Oral four times a day, TRAZADONE 1 (100 mg) Tablet Oral at bedtime, Venlafaxine HCl 1 (150 mg) Capsule SR 24 HR Oral daily, Xarelto 1 Tablet (of 10 mg) Oral daily, Zofran 1 Tablet (of 4 mg) Oral q 4 hours Allergies: Carboplatin Review of Systems: Constitutional - She has no energy. She is making herself do some light housework. She also has no appetite. Her weight is down 4 lbs. She has no fever or night sweats. She has just occasional hot flashes. ECOG score is 1, ENMT - She has sinus drainage. No mouth sores. No sore throat or difficulty swallowing, Hematologic/Lymphatic - No abnormal bruising or bleeding, Respiratory - She has shortness of breath. She does not have much cough. No pleuritic pain or hemoptysis, Cardiovascular - No angina pain. No palpitations, Gastrointestinal - She has nausea at times. No vomiting. No acid reflux. Her constipation has been getting worse, and she has been having abdominal pain on the left side in association with defecation. No blood in the stool or black stools, Genitourinary (F) - She recently had her stent replaced. No dysuria or hematuria. No urinary frequency. No urgency or incontinence, Musculoskeletal - She has been hurting in her back on the right side. It is usually worse on the left. For the past couple of weeks her right leg also has been hurting, Integumentary - No skin rash, Neurologic - She has had some headaches. She has dizziness. The neuropathy pain in her legs and feet has been worse lately, Psychiatric - She has chronic anxiety/depression. No insomnia. Vital Signs: Performed on May 08, 2020 13:44 Height - 67.00 in Weight - 126.8 lbs (LOW) BSA - 1.67 sq.m BMI - 19.86 Temperature - 98.6 F Pulse - 77 /min Respiration - 24 /min BP - 135/77 mm(hg) O2 Sat - 90 % (LOW) Pain - 6 Her oxygen saturation on room air at rest was 88%, and it decreased to 83% after walking. With oxygen at 2 L it increased to 96%. Physical Examination: Constitutional - She appears chronically ill, Eyes - Sclerae nonicteric. Conjunctivae clear, ENMT - Mouth is dry. There are no lesions noted in the oral cavity, Hematologic/Lymphatic - No cervical, clavicular, or axillary adenopathy, Respiratory - Lungs show diminished air movement with slightly coarse breath sounds bilaterally, Cardiovascular - Heart rhythm is regular. There is no murmur, gallop, or rub noted, Abdomen - Soft. There is mild, generalized abdominal tenderness. Liver and spleen are not enlarged. There is no abdominal mass or ascites noted. There is no inguinal adenopathy, Extremities - No edema, Neurologic - No focal neurologic deficits noted. Lab/Imaging: Test performed on May 08, 2020 12:10 Sodium 129 mmol/L Potassium 4.7 mmol/L Chloride 91 mmol/L CO2 31 mmol/L Anion Gap 11.7 BUN 6 mg/dL Creatinine 0.7 mg/dL Cr Clearance (Est) 76.63 mL/min eGFR 85.1 mL/min Glucose 90 mg/dL Calcium 9.4 mg/dL Protein, Total 7.0 g/dL Albumin 4.5 g/dL Globulin 2.5 g/dL Bilirubin, Total 0.2 mg/dL ALT (SGPT) 7 U/L AST (SGOT) 14 U/L Alkaline Phosphatase 72 IU/L WBC 4.3 10 3/uL RBC 3.86 10 6/uL HGB 10.0 g/dL HCT 32.4 % MCV 83.9 fL MCH 25.9 pg MCHC 30.9 g/dL RDW 15.3 % Platelet Count 155 10 3/cmm MPV 9.3 fL Neutrophils 2.45 10 3/uL Lymphocytes 1.3 10 3/uL Monocytes 0.4 10 3/uL Eosinophils 0.1 10 3/uL Basophils 0.0 10 3/uL Neutrophil % 57.5 % Lymphocyte % 29.6 % Monocyte % 9.2 % Eosinophil % 2.6 % Basophils % 0.9 % NRBC % 0 % CA-125 6.8 U/mL Impression: 1. Patient with recurrent ovarian cancer. By next generation sequencing her tumor was noted to harbor a BRCA1 mutation, presumed somatic, as her original testing for germline BRCA was negative. Her tumor also was tested and found to be MSI stable with intact mismatch repair proteins. 2. She had optimal debulking following initial diagnosis in May 2003, and she received adjuvant chemotherapy with 6 cycles of carboplatin/paclitaxel. 3. She had further treatment with 4 cycles of carboplatin/paclitaxel in combination with Avastin following documented recurrence in July 2008. 4. She had restarted chemotherapy with carboplatin/gemcitabine in February 2013 following a surgical debulking procedure for disease progression with associated bowel obstruction. Her treatment was subsequently modified to single agent gemcitabine as a result of a hypersensitivity reaction to carboplatin. She had some response to the chemotherapy. As of January 2014 her disease was felt to be stable, and she was then observed off treatment. 5.. In May 2015 she restarted chemotherapy with weekly paclitaxel. Following her cycle 18 treatment on 09/17/2016 she had another hospital admission for pneumonia. As her disease had been stable and her performance status had been declining, her chemotherapy at that point was put on hold. Her other medical illnesses include: 6. Hypertension. 7. Hyperlipidemia. 8. GERD. 9. COPD. 10. Degenerative disease of the spine with chronic back pain. 9. Chronic anxiety/depression. 10. She has nicotine dependence (cigarettes). During follow-up she has continued to have multiple chronic complaints, including abdominal pain and constipation along with fatigue, insomnia, back pain, and neuropathy from her previous chemotherapy. She also has significant underlying COPD, and she has been having chronic cystitis symptoms. In February 2019 she presented with swelling in the right leg, she was found to have deep vein thrombosis by venous Doppler. She has since then been on anticoagulation with apixaban. Her restaging CT scans in March 2019 showed no obvious disease progression in the chest, abdomen, or pelvis, but there was evidence of new moderate right hydronephrosis with dilatation of the right proximal ureter. She then presented recently with increased pain in the right lower quadrant of the abdomen and right groin area. There has been a gradual increase in her CA-125 level. Her repeat CT abdomen/pelvis on 06/22/2019 shows a 3.5 cm soft tissue mass in the right pelvis suspicious for local recurrence or lymphadenopathy, and there is also increasing right hydronephrosis. Overall, the findings were consistent with progression of the ovarian cancer. She was referred to Dr. David and on 07/18/2019 she underwent exploratory laparotomy with adhesolysis and with debulking of the right pelvic tumor. He tumor was obstructing the right ureter, and the procedure also included placement of a right ureteral stent. She had gradual recovery from the surgery. During subsequent follow-up she continued to have very limited activity and she had ongoing problems with recurrent urinary tract infection associated with the ureteral stent. She also continues to have significant pain in the lower abdomen/right groin area, and a repeat CT abdomen/pelvis on 12/12/2019 showed progression of a right pelvic mass compared to the June 2019 study. At that point it measured 5.8 x 3.8 x 6.5 cm and it was noted to encase the right ureter. It was inseparable from the distal small bowel loops and it was noted to abut the right L5-S1 disc space. There was interval placement of right ureteral stent with resolution of right hydronephrosis. With those findings and with the known BRCA mutation, she began trial of therapy with olaparib 300 mg bid on 12/18/2019. Initially she was tolerating it pretty well. As of her followup visit on 02/21/2020 she was having significant nausea and abdominal pain, and she also reported worsening fatigue. I had suspected that at least some of those symptoms were treatment related. However, that point there also had been a significant decline in the CA-125 level. She was advised to continue the olaparib, but with the dosage reduced to 200 mg twice daily. Subsequent to that visit she had 2 hospitalizations at [facility]. Both were for bowel obstruction, and on both occasions it resolved with conservative management. As of her follow-up visit on 03/21/2020 she was beginning to feel better, and she continued the olaparib at 200 mg twice daily. As of 04/10/2020 her symptoms had had shown some improvement, though she still had limited activity tolerance, and she continued to have nausea and anorexia with the olaparib. At that point her CA-125 had declined to 6.7 U/mL, and has now stabilized at that level. However, she now has multiple complaints including increased fatigue, anorexia with weight loss, increased back pain, worsening constipation, and increased neuropathy pain. It is uncertain to what extent any of these may be related to the olaparib or to the underlying malignancy. Plan: For now she is going to continue olaparib at 200 mg bid. I will request a refill on her home oxygen, as she is significantly hypoxic on room air. She will be scheduled for restaging CT scans of the chest, abdomen, and pelvis. She will have further evaluation as indicated. In the meantime, though, she is advised to use her Relistor more frequently. Signed By: Ravi Lynne M.D. <<Signature on File>>
== END 2020-05-08 11:49 | disposition home or self-care (01) ==
LOC: ONCMED 11:52
PROVIDERS: Visit Provider Internal Medicine Medical Oncology
DX: C56.1 Malignant neoplasm of right ovary (principal); C79.89 Secondary malignant neoplasm of other specified sites; R09.02 Hypoxemia; R53.83 Other fatigue; R63.0 Anorexia; K59.00 Constipation, unspecified; I10 Essential (primary) hypertension; G62.9 Polyneuropathy, unspecified; E78.5 Hyperlipidemia, unspecified; K21.9 Gastro-esophageal reflux disease without esophagitis; J44.9 Chronic obstructive pulmonary disease, unspecified; M47.9 Spondylosis, unspecified; F41.8 Other specified anxiety disorders; F17.210 Nicotine dependence, cigarettes, uncomplicated; Z79.899 Other long term (current) drug therapy; Z99.81 Dependence on supplemental oxygen; Z68.1 Body mass index [BMI] 19.9 or less, adult
CPT/HCPCS: 36591; 80053; 85025; 86304; 99214

== ENCOUNTER 2020-05-22 11:21 | Outpatient (CLI) | payer MEDICARE, OTHER, SELFPAY ==
--- NOTE | 2020-05-22 11:27 | CT_ITS ---
WS: [id number] CT ABDOMEN PELVIS TECHNIQUE: Contrast-enhanced CT of the abdomen and pelvis with coronal and sagittal reformatted image s. CLINICAL INFORMATION: LLQ ABDOMINAL PAIN; HX OF OVARIAN CANCER COMPARISON: CT December 12, 2019 DLP: 1004.[address] scans at [facility] use at least one of these dose optimization techniques: automat ed exposure control; mA and/or kV adjustment per patient size (includes targeted exams where dose is matched to clinical indication); or iterative reconstruction. FINDINGS: Mild diffuse fatty infiltration liver. Normal portal vein and splenic vein. Normal spleen. Normal GE junction. Adrenal glands are normal. Normal left renal parenchymal enhancement. Lung bases are well a erated. Right ureteral stent in place. No hydronephrosis. Right renal cortical atrophy. Previously described right lower quadrant pelvic mass/metastatic lesion appears to have resolved. No evidence of metastati c disease in the pelvis. Moderate constipation. No free fluid in the pelvis. Disc space narrowing L5- S1. Stable prominent inguinal lymph nodes with preserved normal fatty tejas CT/CT abdomen pelvis w con* [id number] IMPRESSION: 1. Previously described right lower quadrant pelvic mass has resolved in the i nterim. No evidence of recurrent pelvic mass. 2. Right double-J ureteral stent in place. No hydronephrosis. Right renal agustín ical atrophy. 3. Moderate constipation 4. No adenopathy in the abdomen or pelvis.
[2020-05-22] MEDS: iohexol 300 mg/mL 50 mL Btl PO (12:13)
[2020-05-22] MEDS: iohexol 300 mg/mL 100 mL Btl IV (13:33)
--- NOTE | 2020-05-25 15:00 | ONC FU_ITS ---
Dr. Lynne Patient Follow-Up Note Patient: Nisreen Carrasco V Unit #: [id number]: [id number] Dicatated By: Ravi Lynne M.D.Date of Visit:May 22, 2020 Onc Med Follow-up/Prog Note Chief Complaint: Ovarian cancer History of Present Illness: This is a 59 year-old woman with recurrent ovarian cancer. She had optimal resection with her initial surgery back in May 2003. She had documented recurrence in July 2008, nearly 5 years after completion of adjuvant chemotherapy with 6 cycles of carboplatin/Taxol. She was retreated at that time with carboplatin/Taxol chemotherapy, but in combination with Avastin. Treatment was stopped after 4 cycles because of worsening neuropathy, but she did have a very good clinical response with normalization of the CA-125 level. She was then followed on observation. She did well until July 2012 when she presented with small bowel obstruction. Her Ca-125 level at that point had not increased and the obstruction initially did improve with conservative management. Ultimately, though, she was confirmed to have disease recurrence in the abdomen. She underwent surgery at [facility] in October 2012. At laparotomy there were extensive adhesions in the abdomen, but there was recurrent tumor in the right mid abdomen and right upper quadrant. It was involving the cecum, the mesocolon, and the small bowel mesentery in a multiple twisted mass. There also was periaortic juanita involvement. She underwent right hemicolectomy and primary anastamosis of the bowel with complete resection of the mass. 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 She had gradual recovery from that procedure. In February 2013 she restarted chemotherapy with carboplatin in combination with gemcitabine. She experienced a significant hypersensitivity reaction to the carboplatin with the third cycle of treatment. She then continued chemotherapy with single agent gemcitabine. She experienced significant fatigue and myelosuppression with gemcitabine, even at a reduced dose level. She did not tolerate an attempt at dose escalation. She had some ongoing GI symptoms during this time, but no documented disease progression. She had a followup visit with Dr. David in January 2014. Her disease at that time appeared stable, and it was recommended that she stop chemotherapy again and just go back on observation. By May 2015 she was having significantly more abdominal pain and repeat CT abdomen/pelvis at that point was highly suspicious for recurrent metastatic disease at the site of the ileocolic anastomosis. That study showed no obvious metastatic involvement in the liver and no ascites. In June 2015 she restarted chemotherapy with weekly paclitaxel. She initially was tolerating it pretty well on a day 1/day 8 schedule every 3 weeks. She had presented at day 15 of her third cycle with severe abdominal pain and nausea. Repeat CT scan showed increasing soft tissue at the ileocolic anastomosis. There was a large amount of fecal material proximal to that site, and an area of stenosis was suspected. She did improve, though, with conservative management, and she subsequently was able to continue chemotherapy with weekly paclitaxel. As of November 2015 she had completed 7 cycles of treatment. Her chemotherapy was put on hold after her cycle 8 day 1 treatment due to diarrhea and increased abdominal pain. Abdominal x-rays showed just nonspecific gas pattern in the left abdomen. She had restaging CT abdomen/pelvis again on 01/13/2016. It showed no obstruction and no evidence of disease progression. There was no lymphadenopathy or ascites noted. Her symptoms had subsequently improved, and she did then proceed with her 9th cycle of chemotherapy. Beginning with cycle 10, I did have her change to a day 1/day 15 schedule. She had subsequently tolerated it much better. As of her follow-up visit on 08/06/2016, she appeared stable clinically, and at that point she continued with her 16th cycle of treatment. Her day 15 treatment with that cycle was not administered. She continued treatment with cycle 18 day 1 on 10/01/2016. On 10/06/2016 she was admitted to the hospital with pneumonia. CT pulmonary angiogram at that time showed no evidence of pulmonary emboli. There were widespread tree-in-bud pulmonary parenchymal nodularities and there was evidence of underlying chronic emphysema. There was new hilar or mediastinal lymphadenopathy noted, possibly reactive or neoplastic. Also noted was a superior segment left lower lobe pulmonary nodule measuring 8.4 mm. She did improve on antibiotic therapy, and she was discharged home on 10/10/2016. She had quit smoking just prior to the hospitalization. She did not receive day 15 treatment with that cycle. During subsequent follow-up, I opted to keep her chemotherapy on hold, as her disease had been very stable. Restaging CT scans of the chest, abdomen, and pelvis on 04/28/2017 showed resolved hilar and mediastinal adenopathy and resolved left lower lobe pulmonary nodule. There was stable appearance of the ileocolic anastomosis. There was no evidence of disease progression. Her other medical illnesses include hypertension, hypercholesterolemia and gastroesophageal reflux disease. She also has chronic obstructive pulmonary disease and she had a pretty severe episode of pneumonia in December 2008. She had stopped smoking following her hospitalization in September. 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 Other surgeries have been limited to tonsillectomy and tubal ligation. INTERIM HISTORY: Restaging CT scans of the chest, abdomen, and pelvis on 11/16/2018 showed unchanged medial middle lobe parenchymal opacity measuring 8-9 mm. Lingular and anterior left lower lobe subsegmental atelectasis and/or scarring also appeared unchanged. There was no evidence of disease progression in the chest, abdomen, or pelvis. In February 2019 she had presented with new onset of swelling in the right leg. Venous Doppler of the right leg on 03/09/2019 showed partially occlusive deep vein thrombosis of the superficial femoral vein with thrombus noted to extend into the greater saphenous vein. She began on anticoagulation with apixaban. Restaging CT scans on 03/22/2019 showed stable 8-9 mm pulmonary nodule in the right middle lobe. Right hilar and infrahilar hilar lymph nodes also appeared stable. Moderate right hydronephrosis with right ureterectasis appeared to be new. Slightly prominent right inguinal lymph nodes appeared unchanged. Overall, there was no evidence of disease progression in the chest, abdomen, or pelvis. She continued on observation/expectant management. In April 2019 a next generation sequencing study was performed on the specimen from her surgical resection in October 2012. It showed presence of a BRCA1 mutation, presumed to be somatic, as her original germline BRCA testing was negative. There were no other actionable mutations identified. She had come in last week for a scheduled port flushed. At that time she reported increased abdominal pain, mainly in the right lower quadrant and right groin area. It was noted that her CA-125 level, though still in normal range, had been increasing. At that point it was up to 14.0 U/mL compared to 8.6 U/mL in October 2018. Repeat CT abdomen/pelvis on 06/22/2019 showed enlarging soft tissue mass in the right side of the pelvis measuring 3.5 cm. This was noted to be in the area of surgical clips from her prior hysterectomy, and the appearance was felt to be consistent with local recurrence or metastatic adenopathy. The mass was noted to be adjacent to and possibly invading the psoas muscle. There was increasing hydronephrosis of the right kidney. She was referred to Dr. David. On 07/18/2019 she underwent exploratory laparotomy with extensive adhesive lysis and extensive retroperitoneal exploration and debulking of right pelvic/psoas muscle tumor. The tumor was noted to obstruct the right ureter, and the procedure included placement of a right ureteral stent. Pathology showed high-grade carcinoma which was PAX-8 and WT-1 positive. During follow-up she had ongoing problems with urinary tract infection and she continued to have significant pain in the right groin area and lower abdomen. Her repeat CT abdomen/pelvis on 12/12/2019 showed progression of a right pelvic mass compared to the June 2019 study. At that point it measured 5.8 x 3.8 x 6.5 cm and it was noted to encase the right ureter. It was inseparable from the distal small bowel loops and it was noted to abut the right L5-S1 disc space. There was interval placement of right ureteral stent with resolution of right hydronephrosis. With those findings and with the known BRCA mutation, she began a trial of therapy with olaparib 300 mg bid on 12/18/2019. As of her follow-up visit on 02/21/2020 she was still having significant pain in the right lower quadrant area and she also was reporting increased nausea and fatigue. There had been a significant decline in her CA 125 level. I had suspect that at least some of her symptoms were treatment related. She continued the olaparib, but with the dosage reduced to 200 mg twice daily. Subsequent to that visit she had 2 hospitalizations at [facility], only by 4 or 5 days. On both occasions she had bowel obstruction which was relieved with conservative management. I had seen her for a follow-up visit on 03/21/2020. She was beginning to feel better. There was further decline in the CA 125 level to 6.7 U/mL compared to 32.8 U/mL on 12/26/2019. She continued the olaparib at 200 mg twice daily[address] of the abdomen/pelvis on 05/22/2020 showed resolution of the previously described right lower quadrant pelvic mass. A right double-J ureteral stent was noted to be in place. There was right renal cortical atrophy. There was no hydronephrosis. There is no adenopathy noted in the abdomen or pelvis. There was moderate constipation. She is seen for a scheduled visit. She has not been feeling very good. Her main complaint is that her belly has been hurting, mainly in the left lower quadrant area. She also has been having continuous pain in her right groin area. She occasionally has nausea. She has had chronic constipation, but she says her bowels have been moving. She still complains that it hurts when she tries to urinate, and she says her bladder is slow to empty. She has fatigue, but she is still doing light work. ECOG score is 1. Her appetite is not good, but she is eating. Her weight recently has been stable, but she is down 5 to 10 pounds over the past 6 months. She has shortness of breath and cough. She does not complain of chest pain. She has chronic pain in her back and she has neuropathy pain in her legs and feet. Medications: Ativan 1 mg (of 1 mg) Tablet Oral at bedtime PRN, Duragesic-100 2 Patch(es) (of 100 mcg) Patch 72 Hr Transdermal q 3 days, Enalapril Maleate 1 (20 mg) Tablet Oral b.i.d., Lactulose Solution Oral PRN, Levothroid 1 (50 mcg) Tablet Oral daily, Lyrica 1 Capsule (of 75 mg) Oral b.i.d., Magnesium 1 Capsule Oral daily, MiraLax Pack Oral daily, Mucinex Maximum Strength 1 Tablet (of 1200 mg) Tablet SR 12 HR Oral b.i.d. PRN, NexIUM 1 (40 mg) Capsule Delayed Release Oral b.i.d., Norvasc 1 Tablet (of 5 mg) Oral daily, OxyCODONE HCl 1 (20 mg) Tablet Oral q 4 hours PRN, Potassium 1 Tablet (of 100 mg) Oral daily, Proventil HFA Aerosol, solution Inhalation PRN, Soma 1 (350 mg) Tablet Oral t.i.d., TRAZADONE 1 (100 mg) Tablet Oral at bedtime, Venlafaxine HCl 1 (150 mg) Capsule SR 24 HR Oral daily, Xarelto 1 Tablet (of 10 mg) Oral daily, Zofran 1 Tablet (of 4 mg) Oral q 4 hours Allergies: Carboplatin Review of Systems: Constitutional - She has not been feeling good. She has no energy. Her appetite is poor but she is able to eat and her weight is stable. No fevers. She has occasional hot flashes with night sweats. ECOG score is 1, ENMT - She has sinus congestion/drainage. No mouth sores. No sore throat or difficulty swallowing, Hematologic/Lymphatic - No abnormal bruising or bleeding, Respiratory - She has shortness of breath. She has a slight cough. No pleuritic pain or hemoptysis, Cardiovascular - No angina pain. No palpitations, Gastrointestinal - She has intermittent nausea. No vomiting. She has occasional heartburn. No diarrhea. She is having constipation. She has been using Relistor injections. No blood in the stool or black stools, Genitourinary (F) - She has pain with voiding. Her urination is slower. No hematuria. No urinary frequency. No urgency or incontinence, Musculoskeletal - She has pain in her right groin area. She also has pain in her back, legs, and feet, Integumentary - No skin complications, Neurologic - She has had some headaches. She has dizziness. The neuropathy pain in her legs and feet has been worse lately, Psychiatric - She has some anxiety and depression. No insomnia. Vital Signs: Performed on May 22, 2020 14:40 Height - 67.00 in Weight - 126.2 lbs (LOW) BSA - 1.66 sq.m BMI - 19.77 Temperature - 98.2 F (LOW) Pulse - 85 /min Respiration - 22 /min BP - 166/93 mm(hg) (HIGH) O2 Sat - 93 % (LOW) Pain - 8 Physical Examination: Constitutional - She appears chronically ill, Eyes - Sclerae nonicteric. Conjunctivae clear, ENMT - Mouth is dry. There are no lesions noted in the oral cavity, Hematologic/Lymphatic - No cervical, clavicular, or axillary adenopathy, Respiratory - Lungs sound clear with diminished air movemen bilaterally, Cardiovascular - Heart rhythm is regular. There is no murmur, gallop, or rub noted, Abdomen - Soft. There is generalized abdominal tenderness, most significantly in the left lower quadrant area. Liver and spleen are not enlarged. There is no abdominal mass or ascites noted. There is no inguinal adenopathy. There is focal tenderness in the right groin area, just to the right of the symphysis, Extremities - No edema, Neurologic - No focal neurologic deficits noted. Lab/Imaging: Test performed on May 08, 2020 12:10 Sodium 129 mmol/L Potassium 4.7 mmol/L Chloride 91 mmol/L CO2 31 mmol/L Anion Gap 11.7 BUN 6 mg/dL Creatinine 0.7 mg/dL Cr Clearance (Est) 76.63 mL/min eGFR 85.1 mL/min Glucose 90 mg/dL Calcium 9.4 mg/dL Protein, Total 7.0 g/dL Albumin 4.5 g/dL Globulin 2.5 g/dL Bilirubin, Total 0.2 mg/dL ALT (SGPT) 7 U/L AST (SGOT) 14 U/L Alkaline Phosphatase 72 IU/L WBC 4.3 10 3/uL RBC 3.86 10 6/uL HGB 10.0 g/dL HCT 32.4 % MCV 83.9 fL MCH 25.9 pg MCHC 30.9 g/dL RDW 15.3 % Platelet Count 155 10 3/cmm MPV 9.3 fL Neutrophils 2.45 10 3/uL Lymphocytes 1.3 10 3/uL Monocytes 0.4 10 3/uL Eosinophils 0.1 10 3/uL Basophils 0.0 10 3/uL Neutrophil % 57.5 % Lymphocyte % 29.6 % Monocyte % 9.2 % Eosinophil % 2.6 % Basophils % 0.9 % NRBC % 0 % CA-125 6.8 U/mL Impression: 1. Patient with recurrent ovarian cancer. By next generation sequencing her tumor was noted to harbor a BRCA1 mutation, presumed somatic, as her original testing for germline BRCA was negative. Her tumor also was tested and found to be MSI stable with intact mismatch repair proteins. 2. She had optimal debulking following initial diagnosis in May 2003, and she received adjuvant chemotherapy with 6 cycles of carboplatin/paclitaxel. 3. She had further treatment with 4 cycles of carboplatin/paclitaxel in combination with Avastin following documented recurrence in July 2008. 4. She had restarted chemotherapy with carboplatin/gemcitabine in February 2013 following a surgical debulking procedure for disease progression with associated bowel obstruction. Her treatment was subsequently modified to single agent gemcitabine as a result of a hypersensitivity reaction to carboplatin. She had some response to the chemotherapy. As of January 2014 her disease was felt to be stable, and she was then observed off treatment. 5.. In May 2015 she restarted chemotherapy with weekly paclitaxel. Following her cycle 18 treatment on 09/17/2016 she had another hospital admission for pneumonia. As her disease had been stable and her performance status had been declining, her chemotherapy at that point was put on hold. Her other medical illnesses include: 6. Hypertension. 7. Hyperlipidemia. 8. GERD. 9. COPD. 10. Degenerative disease of the spine with chronic back pain. 9. Chronic anxiety/depression. 10. She has nicotine dependence (cigarettes). During follow-up she has continued to have multiple chronic complaints, including abdominal pain and constipation along with fatigue, insomnia, back pain, and neuropathy from her previous chemotherapy. She also has significant underlying COPD, and she has been having chronic cystitis symptoms. In February 2019 she presented with swelling in the right leg, she was found to have deep vein thrombosis by venous Doppler. She has since then been on anticoagulation with apixaban. Her restaging CT scans in March 2019 showed no obvious disease progression in the chest, abdomen, or pelvis, but there was evidence of new moderate right hydronephrosis with dilatation of the right proximal ureter. She then presented recently with increased pain in the right lower quadrant of the abdomen and right groin area. There has been a gradual increase in her CA-[address] level[address] repeat [address] abdomen/pelvis on 06/22/2019 shows a 3.5 cm soft tissue mass in the right pelvis suspicious for local recurrence or lymphadenopathy, and there is also increasing right hydronephrosis. Overall, the findings were consistent with progression of the ovarian cancer. She was referred to Dr. David and on 07/18/2019 she underwent exploratory laparotomy with adhesolysis and with debulking of the right pelvic tumor. He tumor was obstructing the right ureter, and the procedure also included placement of a right ureteral stent. She had gradual recovery from the surgery. During subsequent follow-up she continued to have very limited activity and she had ongoing problems with recurrent urinary tract infection associated with the ureteral stent. She also continues to have significant pain in the lower abdomen/right groin area, and a repeat CT abdomen/pelvis on 12/12/2019 showed progression of a right pelvic mass compared to the June 2019 study. At that point it measured 5.8 x 3.8 x 6.5 cm and it was noted to encase the right ureter. It was inseparable from the distal small bowel loops and it was noted to abut the right L5-S1 disc space. There was interval placement of right ureteral stent with resolution of right hydronephrosis. With those findings and with the known BRCA mutation, she began trial of therapy with olaparib 300 mg bid on 12/18/2019. Initially she was tolerating it pretty well. As of her followup visit on 02/21/2020 she was having significant nausea and abdominal pain, and she also reported worsening fatigue. I had suspected that at least some of those symptoms were treatment related. However, that point there also had been a significant decline in the CA-125 level. She was advised to continue the olaparib, but with the dosage reduced to 200 mg twice daily. Subsequent to that visit she had 2 hospitalizations at [facility]. Both were for bowel obstruction, and on both occasions it resolved with conservative management. As of her follow-up visit on 03/21/2020 she was beginning to feel better, and she continued the olaparib at 200 mg twice daily. As of 04/10/2020 her symptoms had had shown some improvement, though she still had limited activity tolerance, and she continued to have nausea and anorexia with the olaparib. At that point her CA-125 had declined to 6.7 U/mL, and it then stabilized at that level. During follow-up she has continued to have ongoing problems with abdominal pain and constipation. She also has pain with voiding. She has not felt good generally. Her CT scans, though, show resolution of the right pelvic mass with no residual hydronephrosis. There is evidence of constipation. Overall, she does appear to have had very good response to the PARP inhibitor, though she continues to have multiple chronic complaints. Plan: She will continue treatment with olaparib at 200 mg bid. She has Relistor available at home, and advised her to take it not less frequently than every 3 days. She also will continue her MiraLAX and docusate. She will be scheduled for a follow-up visit in 1 month. Signed By: Ravi Lynne M.D. <<Signature on File>>
== END 2020-05-22 11:22 | disposition home or self-care (01) ==
LOC: RADWPI 11:24 → ONCMED 14:23
PROVIDERS: Visit Provider Internal Medicine Medical Oncology
DX: C79.89 Secondary malignant neoplasm of other specified sites; Z85.43 Personal history of malignant neoplasm of ovary; I10 Essential (primary) hypertension; E78.5 Hyperlipidemia, unspecified; K21.9 Gastro-esophageal reflux disease without esophagitis; J44.9 Chronic obstructive pulmonary disease, unspecified; M47.9 Spondylosis, unspecified; M54.5 Low back pain; F41.9 Anxiety disorder, unspecified; F32.9 Major depressive disorder, single episode, unspecified; F17.210 Nicotine dependence, cigarettes, uncomplicated; Z92.21 Personal history of antineoplastic chemotherapy; K59.00 Constipation, unspecified
CPT/HCPCS: 74177; 99214; Q9967

== ENCOUNTER 2020-06-26 13:40 | Outpatient (CLI) | payer MEDICARE, OTHER, SELFPAY ==
[2020-06-26 14:58] LABS: Basophils % 0.8 %; Eosinophils # 0.1 10^3/uL (0.0-0.8); Eosinophils % 2.1 %; Hematocrit 30.5 % (37.0-47.0); Hemoglobin 9.6 g/dL (11.5-15.3); Lymphocytes # 1.7 10^3/uL (0.8-4.8); Lymphocytes % 31.6 %; Mean Corpuscular HGB Conc 31.5 g/dL (30.0-36.0); Mean Corpuscular Hemoglobin 25.2 pg (28.0-34.0); Mean Corpuscular Volume 80.1 fL (81-99); Mean Platelet Volume 9.8 fL (7.4-10.4); Monocytes # 0.6 10^3/uL (0.2-0.9); Monocytes % 11.2 %; Neutrophils # 2.85 10^3/uL (1.8-7.7); Neutrophils % 54.1 %; Nucleated Red Blood Cells % 0 %; Platelet Count 152 10^3/cmm (130-400); Red Blood Count 3.81 10^6/uL (4.1-5.3); Red Cell Distribution Width 16.7 % (12.1-15.1); White Blood Count 5.3 10^3/uL (4.0-10.0)
[2020-06-26 15:13] LABS: Add Urine Microscopic? NO
[2020-06-26 15:20] LABS: Alanine Aminotransferase 7 U/L (0-33); Albumin Level 4.4 g/dL (3.5-5.2); Alkaline Phosphatase 75 IU/L (35-105); Anion Gap 10.6 (5-19); Aspartate Amino Transferase 13 U/L (0-32); Blood Urea Nitrogen 9 mg/dL (8-23); Calcium 8.8 mg/dL (8.5-10.5); Carbon Dioxide 31 mmol/L (22-29); Chloride 88 mmol/L (98-107); Globulin 2.7 g/dL (1.3-4.6); Glomerular Filtration Rate 84.8 mL/min (90-130); Glucose 80 mg/dL (65-115); Osmolality Calculated 255 mOsm/kg (285-295); Potassium 4.6 mmol/L (3.5-5.1); Sodium 125 mmol/L (136-145); Total Bilirubin 0.2 mg/dL (0.15-1.2); Total Protein 7.1 g/dL (6.6-8.7)
[2020-06-26 15:31] LABS: CA 125 8.4 U/mL (0-35)
[2020-06-26 15:50] LABS: Bilirubin Urine Neg (Negative); Blood Urine Neg (Negative); Glucose Urine UA Norm (Normal); Ketones Urine Negative (Negative); Leukocyte Esterase Urine Negative (Negative); Nitrate Urine Negative (Negative); Protein Urine Neg (Negative); Specific Gravity, Urine 1.005 (1.005-1.030); Urine Appearance Clear (CLEAR); Urine Color Yellow (Yellow); Urobilinogen Urine Norm (Negative)
[2020-06-26 17:08] LABS: Iron 21 ug/dL (37-145); Percent Saturation 6.3 % (20-50); Total Iron Binding Capacity 333 mcg/dl; Unsaturated Iron Binding 312 ug/dL (112-347)
--- NOTE | 2020-06-30 09:38 | ONC FU_ITS ---
Dr. Lynne Patient Follow-Up Note Patient: Nisreen Carrasco V Unit #: [id number]: [id number] Dicatated By: Ravi Lynne M.D.Date of Visit:Jun 26, 2020 Onc Med Follow-up/Prog Note Chief Complaint: Ovarian cancer History of Present Illness: This is a 60 year-old woman with recurrent ovarian cancer. She had optimal resection with her initial surgery back in May 2003. She had documented recurrence in July 2008, nearly 5 years after completion of adjuvant chemotherapy with 6 cycles of carboplatin/Taxol. She was retreated at that time with carboplatin/Taxol chemotherapy, but in combination with Avastin. Treatment was stopped after 4 cycles because of worsening neuropathy, but she did have a very good clinical response with normalization of the CA-125 level. She was then followed on observation. She did well until July 2012 when she presented with small bowel obstruction. Her Ca-125 level at that point had not increased and the obstruction initially did improve with conservative management. Ultimately, though, she was confirmed to have disease recurrence in the abdomen. She underwent surgery at [facility] in October 2012. At laparotomy there were extensive adhesions in the abdomen, but there was recurrent tumor in the right mid abdomen and right upper quadrant. It was involving the cecum, the mesocolon, and the small bowel mesentery in a multiple twisted mass. There also was periaortic juanita involvement. She underwent right hemicolectomy and primary anastamosis of the bowel with complete resection of the mass. 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 She had gradual recovery from that procedure. In February 2013 she restarted chemotherapy with carboplatin in combination with gemcitabine. She experienced a significant hypersensitivity reaction to the carboplatin with the third cycle of treatment. She then continued chemotherapy with single agent gemcitabine. She experienced significant fatigue and myelosuppression with gemcitabine, even at a reduced dose level. She did not tolerate an attempt at dose escalation. She had some ongoing GI symptoms during this time, but no documented disease progression. She had a followup visit with Dr. David in January 2014. Her disease at that time appeared stable, and it was recommended that she stop chemotherapy again and just go back on observation. By May 2015 she was having significantly more abdominal pain and repeat CT abdomen/pelvis at that point was highly suspicious for recurrent metastatic disease at the site of the ileocolic anastomosis. That study showed no obvious metastatic involvement in the liver and no ascites. In June 2015 she restarted chemotherapy with weekly paclitaxel. She initially was tolerating it pretty well on a day 1/day 8 schedule every 3 weeks. She had presented at day 15 of her third cycle with severe abdominal pain and nausea. Repeat CT scan showed increasing soft tissue at the ileocolic anastomosis. There was a large amount of fecal material proximal to that site, and an area of stenosis was suspected. She did improve, though, with conservative management, and she subsequently was able to continue chemotherapy with weekly paclitaxel. As of November 2015 she had completed 7 cycles of treatment. Her chemotherapy was put on hold after her cycle 8 day 1 treatment due to diarrhea and increased abdominal pain. Abdominal x-rays showed just nonspecific gas pattern in the left abdomen. She had restaging CT abdomen/pelvis again on 01/13/2016. It showed no obstruction and no evidence of disease progression. There was no lymphadenopathy or ascites noted. Her symptoms had subsequently improved, and she did then proceed with her 9th cycle of chemotherapy. Beginning with cycle 10, I did have her change to a day 1/day 15 schedule. She had subsequently tolerated it much better. As of her follow-up visit on 08/06/2016, she appeared stable clinically, and at that point she continued with her 16th cycle of treatment. Her day 15 treatment with that cycle was not administered. She continued treatment with cycle 18 day 1 on 10/01/2016. On 10/06/2016 she was admitted to the hospital with pneumonia. CT pulmonary angiogram at that time showed no evidence of pulmonary emboli. There were widespread tree-in-bud pulmonary parenchymal nodularities and there was evidence of underlying chronic emphysema. There was new hilar or mediastinal lymphadenopathy noted, possibly reactive or neoplastic. Also noted was a superior segment left lower lobe pulmonary nodule measuring 8.4 mm. She did improve on antibiotic therapy, and she was discharged home on 10/10/2016. She had quit smoking just prior to the hospitalization. She did not receive day 15 treatment with that cycle. During subsequent follow-up, I opted to keep her chemotherapy on hold, as her disease had been very stable. Restaging CT scans of the chest, abdomen, and pelvis on 04/28/2017 showed resolved hilar and mediastinal adenopathy and resolved left lower lobe pulmonary nodule. There was stable appearance of the ileocolic anastomosis. There was no evidence of disease progression. Her other medical illnesses include hypertension, hypercholesterolemia and gastroesophageal reflux disease. She also has chronic obstructive pulmonary disease and she had a pretty severe episode of pneumonia in December 2008. She had stopped smoking following her hospitalization in September. 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 Other surgeries have been limited to tonsillectomy and tubal ligation. INTERIM HISTORY: Restaging CT scans of the chest, abdomen, and pelvis on 11/16/2018 showed unchanged medial middle lobe parenchymal opacity measuring 8-9 mm. Lingular and anterior left lower lobe subsegmental atelectasis and/or scarring also appeared unchanged. There was no evidence of disease progression in the chest, abdomen, or pelvis. In February 2019 she had presented with new onset of swelling in the right leg. Venous Doppler of the right leg on 03/09/2019 showed partially occlusive deep vein thrombosis of the superficial femoral vein with thrombus noted to extend into the greater saphenous vein. She began on anticoagulation with apixaban. Restaging CT scans on 03/22/2019 showed stable 8-9 mm pulmonary nodule in the right middle lobe. Right hilar and infrahilar hilar lymph nodes also appeared stable. Moderate right hydronephrosis with right ureterectasis appeared to be new. Slightly prominent right inguinal lymph nodes appeared unchanged. Overall, there was no evidence of disease progression in the chest, abdomen, or pelvis. She continued on observation/expectant management. In April 2019 a next generation sequencing study was performed on the specimen from her surgical resection in October 2012. It showed presence of a BRCA1 mutation, presumed to be somatic, as her original germline BRCA testing was negative. There were no other actionable mutations identified. She had come in last week for a scheduled port flushed. At that time she reported increased abdominal pain, mainly in the right lower quadrant and right groin area. It was noted that her CA-125 level, though still in normal range, had been increasing. At that point it was up to 14.0 U/mL compared to 8.6 U/mL in October 2018. Repeat CT abdomen/pelvis on 06/22/2019 showed enlarging soft tissue mass in the right side of the pelvis measuring 3.5 cm. This was noted to be in the area of surgical clips from her prior hysterectomy, and the appearance was felt to be consistent with local recurrence or metastatic adenopathy. The mass was noted to be adjacent to and possibly invading the psoas muscle. There was increasing hydronephrosis of the right kidney. She was referred to Dr. David. On 07/18/2019 she underwent exploratory laparotomy with extensive adhesive lysis and extensive retroperitoneal exploration and debulking of right pelvic/psoas muscle tumor. The tumor was noted to obstruct the right ureter, and the procedure included placement of a right ureteral stent. Pathology showed high-grade carcinoma which was PAX-8 and WT-1 positive. During follow-up she had ongoing problems with urinary tract infection and she continued to have significant pain in the right groin area and lower abdomen. Her repeat CT abdomen/pelvis on 12/12/2019 showed progression of a right pelvic mass compared to the June 2019 study. At that point it measured 5.8 x 3.8 x 6.5 cm and it was noted to encase the right ureter. It was inseparable from the distal small bowel loops and it was noted to abut the right L5-S1 disc space. There was interval placement of right ureteral stent with resolution of right hydronephrosis. With those findings and with the known BRCA mutation, she began a trial of therapy with olaparib 300 mg bid on 12/18/2019. As of her follow-up visit on 02/21/2020 she was still having significant pain in the right lower quadrant area and she also was reporting increased nausea and fatigue. There had been a significant decline in her CA 125 level. I had suspect that at least some of her symptoms were treatment related. She continued the olaparib, but with the dosage reduced to 200 mg twice daily. Subsequent to that visit she had 2 hospitalizations at [facility], only by 4 or 5 days. On both occasions she had bowel obstruction which was relieved with conservative management. I had seen her for a follow-up visit on 03/21/2020. She was beginning to feel better. There was further decline in the CA 125 level to 6.7 U/mL compared to 32.8 U/mL on 12/26/2019. Restaging CT of the abdomen/pelvis on 05/22/2020 showed resolution of the previously described right lower quadrant pelvic mass. A right double-J ureteral stent was noted to be in place. There was right renal cortical atrophy. There was no hydronephrosis. There is no adenopathy noted in the abdomen or pelvis. There was moderate constipation. She continued the olaparib at 200 mg twice daily. She is seen for a scheduled visit. She is still not feeling very good generally. She has ongoing complaints of fatigue, though she is able to do light work. ECOG score is 1. She does not have good appetite. She says she has been eating, though not very much. Her weight is stable. She has not had fever. She does have some hot flashes and sweating. She continues to complain of having pain in the bladder area when she voids. She has ongoing problems with constipation. She has not been using the Relistor because it causes abdominal cramping. At the present time she keeps her bowels going with senna/docusate and milk of magnesia. She continues to have abdominal pain, and she has chronic back pain. She has neuropathy pain in her hands and feet. It may be a little better since she started Lyrica. Medications: Ativan 1 mg (of 1 mg) Tablet Oral at bedtime PRN, Duragesic-100 2 Patch(es) (of 100 mcg) Patch 72 Hr Transdermal q 3 days, Enalapril Maleate 1 (20 mg) Tablet Oral b.i.d., Lactulose Solution Oral PRN, Levothroid 1 (50 mcg) Tablet Oral daily, Lyrica 1 Capsule (of 75 mg) Oral b.i.d., Magnesium 1 Capsule Oral daily, MiraLax Pack Oral daily, Mucinex Maximum Strength 1 Tablet (of 1200 mg) Tablet SR 12 HR Oral b.i.d. PRN, NexIUM 1 (40 mg) Capsule Delayed Release Oral b.i.d., Norvasc 1 Tablet (of 5 mg) Oral daily, OxyCODONE HCl 1 (20 mg) Tablet Oral q 4 hours PRN, Potassium 1 Tablet (of 100 mg) Oral daily, Proventil HFA Aerosol, solution Inhalation PRN, Soma 1 (350 mg) Tablet Oral t.i.d., TRAZADONE 1 (100 mg) Tablet Oral at bedtime, Venlafaxine HCl 1 (150 mg) Capsule SR 24 HR Oral daily, Xarelto 1 Tablet (of 10 mg) Oral daily, Zofran 1 Tablet (of 4 mg) Oral q 4 hours Allergies: Carboplatin Review of Systems: Constitutional - She has fatigue. Her activity is limited, but she is able to do light work. She says she has been eating, but not very much. Her weight is stable. She does not have fever. She does have hot flashes and sweating. ECOG score is 1, ENMT - She has sinus congestion/drainage. No mouth sores. No sore throat or difficulty swallowing, Hematologic/Lymphatic - No abnormal bruising or bleeding, Respiratory - She has shortness of breath and she has some cough. No pleuritic pain or hemoptysis, Cardiovascular - She was having chest pain this morning. No palpitations, Gastrointestinal - No nausea or vomiting. Her acid reflux is adequately managed with Nexium. She has abdominal pain and she has constipation. No blood in the stool or black stools, Genitourinary (F) - She has pain in the bladder area with urination. No hematuria. No urinary frequency. No urgency or incontinence, Musculoskeletal - She has chronic back pain, Neurologic - She has had some headaches. She has dizziness. The neuropathy pain in her legs and feet has been worse lately, Psychiatric - She has anxiety and depression. No insomnia. Vital Signs: Performed on Jun 26, 2020 15:06 Height - 67.00 in Weight - 127.2 lbs (HIGH) BSA - 1.67 sq.m BMI - 19.92 Temperature - 98.9 F (HIGH) Pulse - 87 /min Respiration - 24 /min BP - 164/83 mm(hg) (HIGH) O2 Sat - 93 % (LOW) Pain - 6 Physical Examination: Constitutional - She appears chronically ill, Eyes - Sclerae nonicteric. Conjunctivae clear, ENMT - Mouth is dry. There are no lesions noted in the oral cavity, Hematologic/Lymphatic - No cervical, clavicular, or axillary adenopathy, Respiratory - Lungs show diminished air movement with slightly coarse breath sounds bilaterally, Cardiovascular - Heart rhythm is regular. There is no murmur, gallop, or rub noted, Abdomen - Soft. There is mild tenderness, mainly in the lower abdominal area. Liver and spleen are not enlarged. There is no abdominal mass or ascites noted. There is no inguinal adenopathy, Extremities - No edema, Neurologic - No focal neurologic deficits noted. Lab/Imaging: Test performed on Jun 26, 2020 14:30 Iron 21 mcg/dL Sodium 125 mmol/L Iron Binding Capacity (TIBC) 333 mcg/dl Potassium 4.6 mmol/L % Iron Saturation 6.3 % Chloride 88 mmol/L CO2 31 mmol/L UIBC 312 mcg/dL Anion Gap 10.6 BUN 9 mg/dL Creatinine 0.7 mg/dL Cr Clearance (Est) 75.9000 mL/min eGFR 84.8 mL/min Glucose 80 mg/dL Calcium 8.8 mg/dL Protein, Total 7.1 g/dL Albumin 4.4 g/dL Globulin 2.7 g/dL Bilirubin, Total 0.2 mg/dL ALT (SGPT) 7 U/L AST (SGOT) 13 U/L Alkaline Phosphatase 75 IU/L CA-125 8.4 U/mL Test performed on Jun 26, 2020 14:20 WBC 5.3 10 3/uL RBC 3.81 10 6/uL HGB 9.6 g/dL HCT 30.5 % MCV 80.1 fL MCH 25.2 pg MCHC 31.5 g/dL RDW 16.7 % Platelet Count 152 10 3/cmm MPV 9.8 fL Neutrophils 2.85 10 3/uL Lymphocytes 1.7 10 3/uL Monocytes 0.6 10 3/uL Eosinophils 0.1 10 3/uL Basophils 0.0 10 3/uL Neutrophil % 54.1 % Lymphocyte % 31.6 % Monocyte % 11.2 % Eosinophil % 2.1 % Basophils % 0.8 % NRBC % 0 % Impression: 1. Patient with recurrent ovarian cancer. By next generation sequencing her tumor was noted to harbor a BRCA1 mutation, presumed somatic, as her original testing for germline BRCA was negative. Her tumor also was tested and found to be MSI stable with intact mismatch repair proteins. 2. She had optimal debulking following initial diagnosis in May 2003, and she received adjuvant chemotherapy with 6 cycles of carboplatin/paclitaxel. 3. She had further treatment with 4 cycles of carboplatin/paclitaxel in combination with Avastin following documented recurrence in July 2008. 4. She had restarted chemotherapy with carboplatin/gemcitabine in February 2013 following a surgical debulking procedure for disease progression with associated bowel obstruction. Her treatment was subsequently modified to single agent gemcitabine as a result of a hypersensitivity reaction to carboplatin. She had some response to the chemotherapy. As of January 2014 her disease was felt to be stable, and she was then observed off treatment. 5.. In May 2015 she restarted chemotherapy with weekly paclitaxel. Following her cycle 18 treatment on 09/17/2016 she had another hospital admission for pneumonia. As her disease had been stable and her performance status had been declining, her chemotherapy at that point was put on hold. Her other medical illnesses include: 6. Hypertension. 7. Hyperlipidemia. 8. GERD. 9. COPD. 10. Degenerative disease of the spine with chronic back pain. 9. Chronic anxiety/depression. 10. She has nicotine dependence (cigarettes). During follow-up she has continued to have multiple chronic complaints, including abdominal pain and constipation along with fatigue, insomnia, back pain, and neuropathy from her previous chemotherapy. She also has significant underlying COPD, and she has been having chronic cystitis symptoms. In February 2019 she presented with swelling in the right leg, she was found to have deep vein thrombosis by venous Doppler. She has since then been on anticoagulation with apixaban. Her restaging CT scans in March 2019 showed no obvious disease progression in the chest, abdomen, or pelvis, but there was evidence of new moderate right hydronephrosis with dilatation of the right proximal ureter. She then presented recently with increased pain in the right lower quadrant of the abdomen and right groin area. There has been a gradual increase in her CA-125 level. Her repeat CT abdomen/pelvis on 06/22/2019 shows a 3.5 cm soft tissue mass in the right pelvis suspicious for local recurrence or lymphadenopathy, and there is also increasing right hydronephrosis. Overall, the findings were consistent with progression of the ovarian cancer. She was referred to Dr. David and on 07/18/2019 she underwent exploratory laparotomy with adhesolysis and with debulking of the right pelvic tumor. He tumor was obstructing the right ureter, and the procedure also included placement of a right ureteral stent. She had gradual recovery from the surgery. During subsequent follow-up she continued to have very limited activity and she had ongoing problems with recurrent urinary tract infection associated with the ureteral stent. She also continues to have significant pain in the lower abdomen/right groin area, and a repeat CT abdomen/pelvis on 12/12/2019 showed progression of a right pelvic mass compared to the June 2019 study. At that point it measured 5.8 x 3.8 x 6.5 cm and it was noted to encase the right ureter. It was inseparable from the distal small bowel loops and it was noted to abut the right L5-S1 disc space. There was interval placement of right ureteral stent with resolution of right hydronephrosis. With those findings and with the known BRCA mutation, she began trial of therapy with olaparib 300 mg bid on 12/18/2019. Initially she was tolerating it pretty well. As of her followup visit on 02/21/2020 she was having significant nausea and abdominal pain, and she also reported worsening fatigue. I had suspected that at least some of those symptoms were treatment related. However, that point there also had been a significant decline in the CA-125 level. She was advised to continue the olaparib, but with the dosage reduced to 200 mg twice daily. Subsequent to that visit she had 2 hospitalizations at [facility]. Both were for bowel obstruction, and on both occasions it resolved with conservative management. As of her follow-up visit on 03/21/2020 she was beginning to feel better, and she continued the olaparib at 200 mg twice daily. As of 04/10/2020 her symptoms had had shown some improvement, though she still had limited activity tolerance, and she continued to have nausea and anorexia with the olaparib. At that point her CA-125 had declined to 6.7 U/mL, and it then stabilized at that level. During follow-up she had ongoing problems with abdominal pain and constipation, and she also had pain with voiding. Her restaging CT abdomen/pelvis on 05/22/2020 showed resolution of the right pelvic mass with no residual hydronephrosis. There was evidence of constipation. Overall, she has had a very good response to the PARP inhibitor, though she continues to have multiple chronic complaints. Plan: She will continue treatment with olaparib at 200 mg bid. She will continue with her current bowel regimen. I will increase her dosage of Lyrica to 150 mg twice daily. Her pain medications otherwise remain the same. She will continue anticoagulation with rivaroxaban. She will be scheduled for a follow-up visit in 1 month. Signed By: Ravi Lynne M.D. <<Signature on File>>
== END 2020-06-26 13:41 | disposition home or self-care (01) ==
LOC: ONCMED 13:44
PROVIDERS: Visit Provider Internal Medicine Medical Oncology
DX: C56.1 Malignant neoplasm of right ovary (principal); C79.89 Secondary malignant neoplasm of other specified sites; R10.9 Unspecified abdominal pain; K59.00 Constipation, unspecified; R30.9 Painful micturition, unspecified; Z79.899 Other long term (current) drug therapy; Z79.01 Long term (current) use of anticoagulants; I10 Essential (primary) hypertension; E78.5 Hyperlipidemia, unspecified; K21.9 Gastro-esophageal reflux disease without esophagitis; J44.9 Chronic obstructive pulmonary disease, unspecified; M47.9 Spondylosis, unspecified; F41.8 Other specified anxiety disorders; F17.210 Nicotine dependence, cigarettes, uncomplicated
CPT/HCPCS: 36591; 80053; 81003; 83540; 83550; 85025; 86304; 99214

== ENCOUNTER 2020-07-29 05:52 | Outpatient (CLI) | payer MEDICARE, OTHER, SELFPAY ==
[2020-07-29 12:47] LABS: Basophils # 0.1 10^3/uL (0.0-0.1); Basophils % 1.2 %; Eosinophils # 0.1 10^3/uL (0.0-0.8); Eosinophils % 1.7 %; Hematocrit 34.2 % (37.0-47.0); Hemoglobin 10.7 g/dL (11.5-15.3); Lymphocytes # 1.4 10^3/uL (0.8-4.8); Lymphocytes % 35.1 %; Mean Corpuscular HGB Conc 31.3 g/dL (30.0-36.0); Mean Corpuscular Hemoglobin 25.7 pg (28.0-34.0); Mean Corpuscular Volume 82.2 fL (81-99); Mean Platelet Volume 10.5 fL (7.4-10.4); Monocytes # 0.3 10^3/uL (0.2-0.9); Monocytes % 8.4 %; Neutrophils # 2.17 10^3/uL (1.8-7.7); Neutrophils % 53.4 %; Nucleated Red Blood Cells % 0 %; Platelet Count 156 10^3/cmm (130-400); Red Blood Count 4.16 10^6/uL (4.1-5.3); Red Cell Distribution Width 20.1 % (12.1-15.1); White Blood Count 4.1 10^3/uL (4.0-10.0)
[2020-07-29 13:07] LABS: Alanine Aminotransferase 7 U/L (0-33); Albumin Level 4.3 g/dL (3.5-5.2); Alkaline Phosphatase 82 IU/L (35-105); Anion Gap 15.3 (5-19); Aspartate Amino Transferase 14 U/L (0-32); Blood Urea Nitrogen 9 mg/dL (8-23); Carbon Dioxide 27 mmol/L (22-29); Chloride 92 mmol/L (98-107); Globulin 2.5 g/dL (1.3-4.6); Glomerular Filtration Rate 72.7 mL/min (90-130); Glucose 86 mg/dL (65-115); Osmolality Calculated 268 mOsm/kg (285-295); Potassium 4.3 mmol/L (3.5-5.1); Sodium 130 mmol/L (136-145); Total Bilirubin 0.4 mg/dL (0.15-1.2); Total Protein 6.8 g/dL (6.6-8.7)
[2020-07-29 13:46] LABS: CA 125 7.6 U/mL (0-35)
[2020-07-29 16:51] LABS: Ferritin 22 ng/mL (15-150); Iron 31 ug/dL (37-145); Percent Saturation 9.4 % (20-50); Total Iron Binding Capacity 328 mcg/dl; Unsaturated Iron Binding 297 ug/dL (112-347)
--- NOTE | 2020-08-01 15:31 | ONC FU_ITS ---
[facility] Patient Note Patient: Nisreen Carrasco V Unit #: [id number]: [id number] Dictated By: Daniella JacobsenDate of Visit: Jul 29, 2020 Onc MED Follow-Up/Prog Note Chief Complaint: Ovarian cancer History of Present Illness: Mrs Carrasco is a 60 year-old woman with recurrent ovarian cancer. She had optimal resection with her initial surgery back in May 2003. She had documented recurrence in July 2008, nearly 5 years after completion of adjuvant chemotherapy with 6 cycles of carboplatin/Taxol. She was retreated at that time with carboplatin/Taxol chemotherapy, but in combination with Avastin. Treatment was stopped after 4 cycles because of worsening neuropathy, but she did have a very good clinical response with normalization of the CA-125 level. She was then followed on observation. She did well until July 2012 when she presented with small bowel obstruction. Her Ca-125 level at that point had not increased and the obstruction initially did improve with conservative management. Ultimately, though, she was confirmed to have disease recurrence in the abdomen. She underwent surgery at [facility] in October 2012. At laparotomy there were extensive adhesions in the abdomen, but there was recurrent tumor in the right mid abdomen and right upper quadrant. It was involving the cecum, the mesocolon, and the small bowel mesentery in a multiple twisted mass. There also was periaortic juanita involvement. She underwent right hemicolectomy and primary anastamosis of the bowel with complete resection of the mass. 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 She had gradual recovery from that procedure. In February 2013 she restarted chemotherapy with carboplatin in combination with gemcitabine. She experienced a significant hypersensitivity reaction to the carboplatin with the third cycle of treatment. She then continued chemotherapy with single agent gemcitabine. She experienced significant fatigue and myelosuppression with gemcitabine, even at a reduced dose level. She did not tolerate an attempt at dose escalation. She had some ongoing GI symptoms during this time, but no documented disease progression. She had a followup visit with Dr. David in January 2014. Her disease at that time appeared stable, and it was recommended that she stop chemotherapy again and just go back on observation. By May 2015 she was having significantly more abdominal pain and repeat CT abdomen/pelvis at that point was highly suspicious for recurrent metastatic disease at the site of the ileocolic anastomosis. That study showed no obvious metastatic involvement in the liver and no ascites. In June 2015 she restarted chemotherapy with weekly paclitaxel. She initially was tolerating it pretty well on a day 1/day 8 schedule every 3 weeks. She had presented at day 15 of her third cycle with severe abdominal pain and nausea. Repeat CT scan showed increasing soft tissue at the ileocolic anastomosis. There was a large amount of fecal material proximal to that site, and an area of stenosis was suspected. She did improve, though, with conservative management, and she subsequently was able to continue chemotherapy with weekly paclitaxel. As of November 2015 she had completed 7 cycles of treatment. Her chemotherapy was put on hold after her cycle 8 day 1 treatment due to diarrhea and increased abdominal pain. Abdominal x-rays showed just nonspecific gas pattern in the left abdomen. She had restaging CT abdomen/pelvis again on 01/13/2016. It showed no obstruction and no evidence of disease progression. There was no lymphadenopathy or ascites noted. Her symptoms had subsequently improved, and she did then proceed with her 9th cycle of chemotherapy. Beginning with cycle 10, I did have her change to a day 1/day 15 schedule. She had subsequently tolerated it much better. As of her follow-up visit on 08/06/2016, she appeared stable clinically, and at that point she continued with her 16th cycle of treatment. Her day 15 treatment with that cycle was not administered. She continued treatment with cycle 18 day 1 on 10/01/2016. On 10/06/2016 she was admitted to the hospital with pneumonia. CT pulmonary angiogram at that time showed no evidence of pulmonary emboli. There were widespread tree-in-bud pulmonary parenchymal nodularities and there was evidence of underlying chronic emphysema. There was new hilar or mediastinal lymphadenopathy noted, possibly reactive or neoplastic. Also noted was a superior segment left lower lobe pulmonary nodule measuring 8.4 mm. She did improve on antibiotic therapy, and she was discharged home on 10/10/2016. She had quit smoking just prior to the hospitalization. She did not receive day 15 treatment with that cycle. During subsequent follow-up, I opted to keep her chemotherapy on hold, as her disease had been very stable. Restaging CT scans of the chest, abdomen, and pelvis on 04/28/2017 showed resolved hilar and mediastinal adenopathy and resolved left lower lobe pulmonary nodule. There was stable appearance of the ileocolic anastomosis. There was no evidence of disease progression. Her other medical illnesses include hypertension, hypercholesterolemia and gastroesophageal reflux disease. She also has chronic obstructive pulmonary disease and she had a pretty severe episode of pneumonia in December 2008. She had stopped smoking following her hospitalization in September. 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 Other surgeries have been limited to tonsillectomy and tubal ligation. INTERIM HISTORY: Restaging CT scans of the chest, abdomen, and pelvis on 11/16/2018 showed unchanged medial middle lobe parenchymal opacity measuring 8-9 mm. Lingular and anterior left lower lobe subsegmental atelectasis and/or scarring also appeared unchanged. There was no evidence of disease progression in the chest, abdomen, or pelvis. In February 2019 she had presented with new onset of swelling in the right leg. Venous Doppler of the right leg on 03/09/2019 showed partially occlusive deep vein thrombosis of the superficial femoral vein with thrombus noted to extend into the greater saphenous vein. She began on anticoagulation with apixaban. Restaging CT scans on 03/22/2019 showed stable 8-9 mm pulmonary nodule in the right middle lobe. Right hilar and infrahilar hilar lymph nodes also appeared stable. Moderate right hydronephrosis with right ureterectasis appeared to be new. Slightly prominent right inguinal lymph nodes appeared unchanged. Overall, there was no evidence of disease progression in the chest, abdomen, or pelvis. She continued on observation/expectant management. In April 2019 a next generation sequencing study was performed on the specimen from her surgical resection in October 2012. It showed presence of a BRCA1 mutation, presumed to be somatic, as her original germline BRCA testing was negative. There were no other actionable mutations identified. She had come in last week for a scheduled port flushed. At that time she reported increased abdominal pain, mainly in the right lower quadrant and right groin area. It was noted that her CA-125 level, though still in normal range, had been increasing. At that point it was up to 14.0 U/mL compared to 8.6 U/mL in October 2018. Repeat CT abdomen/pelvis on 06/22/2019 showed enlarging soft tissue mass in the right side of the pelvis measuring 3.5 cm. This was noted to be in the area of surgical clips from her prior hysterectomy, and the appearance was felt to be consistent with local recurrence or metastatic adenopathy. The mass was noted to be adjacent to and possibly invading the psoas muscle. There was increasing hydronephrosis of the right kidney. She was referred to Dr. David. On 07/18/2019 she underwent exploratory laparotomy with extensive adhesive lysis and extensive retroperitoneal exploration and debulking of right pelvic/psoas muscle tumor. The tumor was noted to obstruct the right ureter, and the procedure included placement of a right ureteral stent. Pathology showed high-grade carcinoma which was PAX-8 and WT-1 positive. During follow-up she had ongoing problems with urinary tract infection and she continued to have significant pain in the right groin area and lower abdomen. Her repeat CT abdomen/pelvis on 12/12/2019 showed progression of a right pelvic mass compared to the June 2019 study. At that point it measured 5.8 x 3.8 x 6.5 cm and it was noted to encase the right ureter. It was inseparable from the distal small bowel loops and it was noted to abut the right L5-S1 disc space. There was interval placement of right ureteral stent with resolution of right hydronephrosis. With those findings and with the known BRCA mutation, she began a trial of therapy with olaparib 300 mg bid on 12/18/2019. As of her follow-up visit on 02/21/2020 she was still having significant pain in the right lower quadrant area and she also was reporting increased nausea and fatigue. There had been a significant decline in her CA 125 level. It was suspected that at least some of her symptoms were treatment related. She continued the olaparib, but with the dosage reduced to 200 mg twice daily. Subsequent to that visit she had 2 hospitalizations at [facility], only by 4 or 5 days. On both occasions she had bowel obstruction which was relieved with conservative management. Dr Lynne had seen her for a follow-up visit on 03/21/2020. She was beginning to feel better. There was further decline in the CA 125 level to 6.7 U/mL compared to 32.8 U/mL on 12/26/2019. Restaging CT of the abdomen/pelvis on 05/22/2020 showed resolution of the previously described right lower quadrant pelvic mass. A right double-J ureteral stent was noted to be in place. There was right renal cortical atrophy. There was no hydronephrosis. There is no adenopathy noted in the abdomen or pelvis. There was moderate constipation. She continued the olaparib at 200 mg twice daily. She has neuropathy pain in her hands and feet. It may be a little better since she started Lyrica. Ms. Carrasco is here today for follow-up. She has been on the oral iron and is having trouble tolerating it due to worsening constipation. She has history of chronic constipation. She also had GI upset with the oral iron. She is attempting to take it twice a day but states it is very difficult. She states that she is afraid her bowels will get locked up again so she is eating very little. She states she is hungry but she does not eating because she is concerned about her bowels. She states they are moving slowly now but she states with the addition of the iron she is concerned that she will get a blockage again . She denies any fever or chills. She denies nausea or vomiting. She states she is still fatigued but no worse than her normal. She states she is bending a little bit more around the house not dramatic but a few things more than what she had been doing. She denies any new pain. She is having productive cough of thick discolored sputum that has been going on the last 3 to 4 days. She states she is also noted she has had some wheezing off and on. She does have audible wheezing just in the exam room today with conversation. She has been somewhat more short of breath but denies orthopnea, chest pain or palpitations. She denies any lower extremity edema. She denies diarrhea given her history of chronic constipation. She has no other concerns today other than the oral iron and her breathing . Her ECOG remains at 1. Past Medical History: Chronic back pain (secondary to ruptured discs) Depression Peripheral neuropathy in 2009 Hypothyroidism in 2008 Chronic obstructive pulmonary disease in 2006 Anxiety in 2002 Coronary artery disease in 2002 Hypercholesterolemia in 2002 Hypertension in 2002 Gastroesophageal reflux disease in 2002 Past Surgical History: Stent placement in the ureter Flu vaccine in 2019 Flu vaccine in 2018 - left deltoid Prevnar 13 in 2019 - right deltoid Pneumovax in 2016 Flu vaccine in 2016 Right subclavian Port in 2016 Flu vaccine in 2015 Flu in 2014 COLONOSCOPY in 2007 Appendectomy in 2002 Hysterectomy in 2002 - WITH BSO PORT PLACEMENT in 2002 Tubal ligation in 1991 Tonsillectomy in 1964 Allergies: Carboplatin Medications: Ativan 1 mg (of 1 mg) Tablet Oral at bedtime PRN Duragesic-100 2 Patch(es) (of 100 mcg) Patch 72 Hr Transdermal q 3 days Enalapril Maleate 1 (20 mg) Tablet Oral b.i.d. Lactulose Solution Oral PRN Levothroid 1 (50 mcg) Tablet Oral daily Lyrica 1 Capsule (of 75 mg) Oral b.i.d. Magnesium 1 Capsule Oral daily MiraLax Pack Oral daily Mucinex Maximum Strength 1 Tablet (of 1200 mg) Tablet SR 12 HR Oral b.i.d. PRN NexIUM 1 (40 mg) Capsule Delayed Release Oral b.i.d. Norvasc 1 Tablet (of 5 mg) Oral daily OxyCODONE HCl 1 (20 mg) Tablet Oral q 4 hours PRN Potassium 1 Tablet (of 100 mg) Oral daily Proventil HFA Aerosol, solution Inhalation PRN Soma 1 (350 mg) Tablet Oral t.i.d. TRAZADONE 1 (100 mg) Tablet Oral at bedtime Venlafaxine HCl 1 (150 mg) Capsule SR 24 HR Oral daily Xarelto 1 Tablet (of 10 mg) Oral daily Zofran 1 Tablet (of 4 mg) Oral q 4 hours Family History: Ms. Carrasco's mother at age 59: cancer history consists of Breast cancer at age 28 while other medical history includes MS at age 57 (cause of ). Ms. Carrasco's father is alive. Ms. Carrasco does not know if her maternal grandmother is alive. She does not know if her maternal grandfather is alive. Ms. Carrasco has 1 brother who is alive. Social History: Ms. Carrasco is and she is an on disability. She is an occasional smoker who has smoked 0.5 packs/day for 31 years. She is a former drinker. She has indicated exposure to the following products: cigarettes. Ms. Carrasco reports the following support systems: lives with spouse, significant other, family, or friends, lives in own house, supportive family/friends willing to assist with needs, and adequate transportation available for expected visits. Her diet consists of regular meals. She indicates her activity level as: daily activities. she smokes 5 cigaretter per day and has an e cigarette. Review Of Symptoms: Constitutional Denies any fever. States having nights sweats-chronic and stable. Generalized fatigue- no better/no worse . Allergic/Immunologic No reactions. Eyes Denies significant visual changes. No diplopia. No amaurosis. ENMT Denies changes in hearing, sore throat, mouth sores, difficulty or changes in swallowing ability, and/or sinus drainage. Hematologic/Lymphatic Denies easy bruising or bleeding. The patient denies any tender or palpable lymph nodes. Breasts Denies breast masses, nipple discharge, nipple inversion and pain. Respiratory non productive cough-stable and continued shortness of breath. Wears oxygen supplementation with activity. Cardiovascular Denies anginal chest pain, palpitations or orthopnea. Gastrointestinal Denies nausea, vomiting, diarrhea, GI bleeding. Has chronic constipation, has prescription laxative. Constipation worse with oral iron one to times daily. Genitourinary (F) No hematuria, hesitancy, incontinence, vaginal bleeding, discharge or other problems with urination. Musculoskeletal Denies joint swelling or redness. No decreased range of motion. States having generalized joint pain-chronic. Current pain regimen is now controlling her pain. Integumentary Denies chronic rashes, inflammation, ulcerations or skin changes. Neurologic Denies any no areas of focal weakness or numbness. Normal gait. No sensory problems.. back and leg pain-chronic and no worse than her normal. Psychiatric Denies worsening depression, denies any stephanie or mood swings. Vital Signs: Performed on Jul 29, 2020 14:02 Height - 67.00 in Weight - 124.2 lbs (LOW) BSA - 1.65 sq.m BMI - 19.45 Temperature - 98.0 F (LOW) Pulse - 96 /min Respiration - 20 /min BP - 150/88 mm(hg) (HIGH) O2 Sat - 92 % (LOW) Pain - 0,1 - No physically strenuous activity, but ambulatory and able to carry out light or sedentary work (e.g. office work, light house work). (ECOG) Physical Examination: Constitutional Alert, oriented, no acute distress. Skin pink, warm and dry. Frail in appearance but she is wearing make up. Head Normocephalic; atraumatic. Eyes Conjunctivae and sclerae are clear and without icterus. Pupils are reactive and equal. ENMT Sinuses are nontender. No oral exudates, ulcers, masses, or mucositis. Oropharynx clear. Neck Supple without masses or thyromegaly. No jugular venous distension. Hematologic/Lymphatic No petechiae or purpura. No tender or palpable lymph nodes in the cervical, supraclavicular areas. Respiratory Lungs are clear to auscultation without rhonchi or wheezing. Cardiovascular Regular rate and rhythm of heart without murmurs,clicks, gallops or rubs. Chest Chest is symmetric without chest wall deformities. Venous access device insertion site is unremarkable. Abdomen Non-tender, non-distended, no masses, ascites. Back/Spine Non-tender to palpation. Extremities No visible deformities, no cyanosis, clubbing. No lower extremity edema. Musculoskeletal No tenderness or swelling, normal range of motion without obvious weakness. Integumentary No rashes or lesions. Neurologic No sensory or motor deficits, normal cerebellar function, normal gait. Psychiatric Alert and oriented times three. Coherent speech. Verbalizes understanding of our discussions today. Laboratory:Test performed on Jul 29, 2020 12:30 Ferritin 22 ng/mL Iron 31 mcg/dL Sodium 130 mmol/L Iron Binding Capacity (TIBC) 328 mcg/dl Potassium 4.3 mmol/L % Iron Saturation 9.4 % Chloride 92 mmol/L CO2 27 mmol/L UIBC 297 mcg/dL Anion Gap 15.3 BUN 9 mg/dL Creatinine 0.8 mg/dL Cr Clearance (Est) 64.8500 mL/min eGFR 72.7 mL/min Glucose 86 mg/dL Osmolality - Calculated 268 mOsm/kg Calcium 9.0 mg/dL Protein, Total 6.8 g/dL Albumin 4.3 g/dL Globulin 2.5 g/dL Bilirubin, Total 0.4 mg/dL ALT (SGPT) 7 U/L AST (SGOT) 14 U/L Alkaline Phosphatase 82 IU/L WBC 4.1 10 3/uL RBC 4.16 10 6/uL HGB 10.7 g/dL HCT 34.2 % MCV 82.2 fL MCH 25.7 pg MCHC 31.3 g/dL RDW 20.1 % Platelet Count 156 10 3/cmm MPV 10.5 fL Neutrophils 2.17 10 3/uL Lymphocytes 1.4 10 3/uL Monocytes 0.3 10 3/uL Eosinophils 0.1 10 3/uL Basophils 0.1 10 3/uL Neutrophil % 53.4 % Lymphocyte % 35.1 % Monocyte % 8.4 % Eosinophil % 1.7 % Basophils % 1.2 % NRBC % 0 % CA-125 7.6 U/mL Test performed on Jun 26, 2020 14:30 Ua Color Yellow Ua Appearance Clear Ua Glucose Norm Ua Bilirubin Neg Ua Ketones Negative Ua Specific [place] 1.005 Ua Blood Neg Ua pH 7.0 Ua Protein Neg Ua Nitrites Negative Ua Leukocyte Esterase Negative Impression: 1. Patient with recurrent ovarian cancer. By next generation sequencing her tumor was noted to harbor a BRCA1 mutation, presumed somatic, as her original testing for germline BRCA was negative. Her tumor also was tested and found to be MSI stable with intact mismatch repair proteins. 2. She had optimal debulking following initial diagnosis in May 2003, and she received adjuvant chemotherapy with 6 cycles of carboplatin/paclitaxel. 3. She had further treatment with 4 cycles of carboplatin/paclitaxel in combination with Avastin following documented recurrence in July 2008. 4. She had restarted chemotherapy with carboplatin/gemcitabine in February 2013 following a surgical debulking procedure for disease progression with associated bowel obstruction. Her treatment was subsequently modified to single agent gemcitabine as a result of a hypersensitivity reaction to carboplatin. She had some response to the chemotherapy. As of January 2014 her disease was felt to be stable, and she was then observed off treatment. 5.. In May 2015 she restarted chemotherapy with weekly paclitaxel. Following her cycle 18 treatment on 09/17/2016 she had another hospital admission for pneumonia. As her disease had been stable and her performance status had been declining, her chemotherapy at that point was put on hold. Her other medical illnesses include: 6. Hypertension. 7. Hyperlipidemia. 8. GERD. 9. COPD. 10. Degenerative disease of the spine with chronic back pain. 9. Chronic anxiety/depression. 10. She has nicotine dependence (cigarettes). During follow-up she has continued to have multiple chronic complaints, including abdominal pain and constipation along with fatigue, insomnia, back pain, and neuropathy from her previous chemotherapy. She also has significant underlying COPD, and she has been having chronic cystitis symptoms. In February 2019 she presented with swelling in the right leg, she was found to have deep vein thrombosis by venous Doppler. She has since then been on anticoagulation with apixaban. Her restaging CT scans in March 2019 showed no obvious disease progression in the chest, abdomen, or pelvis, but there was evidence of new moderate right hydronephrosis with dilatation of the right proximal ureter. She then presented recently with increased pain in the right lower quadrant of the abdomen and right groin area. There has been a gradual increase in her CA-125 level. Her repeat CT abdomen/pelvis on 06/22/2019 shows a 3.5 cm soft tissue mass in the right pelvis suspicious for local recurrence or lymphadenopathy, and there is also increasing right hydronephrosis. Overall, the findings were consistent with progression of the ovarian cancer. She was referred to Dr. David and on 07/18/2019 she underwent exploratory laparotomy with adhesolysis and with debulking of the right pelvic tumor. He tumor was obstructing the right ureter, and the procedure also included placement of a right ureteral stent. She had gradual recovery from the surgery. During subsequent follow-up she continued to have very limited activity and she had ongoing problems with recurrent urinary tract infection associated with the ureteral stent. She also continues to have significant pain in the lower abdomen/right groin area, and a repeat CT abdomen/pelvis on 12/12/2019 showed progression of a right pelvic mass compared to the June 2019 study. At that point it measured 5.8 x 3.8 x 6.5 cm and it was noted to encase the right ureter. It was inseparable from the distal small bowel loops and it was noted to abut the right L5-S1 disc space. There was interval placement of right ureteral stent with resolution of right hydronephrosis. With those findings and with the known BRCA mutation, she began trial of therapy with olaparib 300 mg bid on 12/18/2019. Initially she was tolerating it pretty well. As of her followup visit on 02/21/2020 she was having significant nausea and abdominal pain, and she also reported worsening fatigue. I had suspected that at least some of those symptoms were treatment related. However, that point there also had been a significant decline in the CA-125 level. She was advised to continue the olaparib, but with the dosage reduced to 200 mg twice daily. Subsequent to that visit she had 2 hospitalizations at [facility]. Both were for bowel obstruction, and on both occasions it resolved with conservative management. As of her follow-up visit on 03/21/2020 she was beginning to feel better, and she continued the olaparib at 200 mg twice daily. As of 04/10/2020 her symptoms had had shown some improvement, though she still had limited activity tolerance, and she continued to have nausea and anorexia with the olaparib. At that point her CA-125 had declined to 6.7 U/mL, and it then stabilized at that level. During follow-up she had ongoing problems with abdominal pain and constipation, and she also had pain with voiding. Her restaging CT abdomen/pelvis on 05/22/2020 showed resolution of the right pelvic mass with no residual hydronephrosis. There was evidence of constipation. Overall, she has had a very good response to the PARP inhibitor, though she continues to have multiple chronic complaints. Plan: 1. Conitnue orall olaparib at 200 mg bid. She will continue with her current bowel regimen. 2. Continue Lyrica at 150 mg BID. 3. She will continue anticoagulation with rivaroxaban for DVT. 4. STOP ORAL IRON DUE TO INTOLERANCE DUE TO WORSENING CONSTIPATION AND GI UPSET. I have requested PA for IV iron replacment as her iron saturation is 9.4% iron level is 31 ferritin is 22. Her iron sat on June 26, 2020 was 6.3. Her hemoglobin today is 10.7. 5. I have sent her prescription in for Levaquin and refilled her ProAir. She is having audible expiratory wheezing and is prone to bronchitis/pneumonia. She has had some increase of shortness of breath with the wheezing. She has been afebrile thus far. She is a productive cough of some thick discolored sputum. 6. Labs from July 29, 2020 were reviewed in detail and discussed with Ms. Carrasco and a copy was given to her. WBC 4.1, hemoglobin 10.7, platelets 1 56,000 ANC is 2200. Potassium 4.3 creatinine 0.8 LFTs are normal iron is as above. Her CA-125 was reported at 7.6. 7. I plan to have her start the IV iron replacement as soon as the PA has been approved. She will need 2 weekly doses if Injectafer is approved. After her second dose, she will have her 1 month follow-up which will include a CBC CMP, repeat iron studies and CA-125. She will be due for TSH for hypothyroid at that time as well. 8. She did want to go ahead and obtain a flu vaccine today while she is here. 9. We reviewed Injectafer specific teaching including but not limited to hypersensitivity reactions, including anaphylactic-type reactions, including life threatening and fatal reactions have been reported in patients receiving Injectafer. Rash, urticaria, wheezing, pruritus, hypotension amongst others have been reported. Nausea, hypertension, hot flushes, dizziness and decreased blood phosphorus levels have been reported. Most common adverse reactions reported include urticaria, dyspnea, pruritus, tachycardia, erythema, pyrexia, chest discomfort, chills, angioedema, back pain, arthralgia, and syncope. She has also been informed how to contact the clinic with side effects or symptoms, including but not limited to those discussed above, as well as any other concern or question they may have. Our hours are 8:00 a.m. to 4:30 p.m. on Wednesday through and 8-12:00 on Wednesday. However, someone is connie cleaner 24 hours per day and they have been advised to contact the [facility] [place] [facility] at if it is after hours. ADDENDUM: Mrs Lowry is using her oxygen regularly and continues to benefit from oxygen use at 2 liters per minute. Signed By: Daniella Jacobsen-, [facility] Ravi Lynne MD <<Signature on File>>
== END 2020-07-29 05:53 | disposition home or self-care (01) ==
LOC: ONCMED 05:55
PROVIDERS: Visit Provider Nurse Practitioner
DX: C56.1 Malignant neoplasm of right ovary (principal); C79.89 Secondary malignant neoplasm of other specified sites; Z23 Encounter for immunization; K59.00 Constipation, unspecified; R30.9 Painful micturition, unspecified; D50.8 Other iron deficiency anemias; F17.210 Nicotine dependence, cigarettes, uncomplicated; I10 Essential (primary) hypertension; E78.5 Hyperlipidemia, unspecified; K21.9 Gastro-esophageal reflux disease without esophagitis; J44.9 Chronic obstructive pulmonary disease, unspecified; M47.9 Spondylosis, unspecified; F41.8 Other specified anxiety disorders; G62.0 Drug-induced polyneuropathy; T45.1X5S Adverse effect of antineoplastic and immunosuppressive drugs, sequela; Z79.01 Long term (current) use of anticoagulants; Z79.899 Other long term (current) drug therapy
CPT/HCPCS: 36591; 80053; 82728; 83540; 83550; 85025; 86304; 90471; 90686; 99214

== ENCOUNTER 2020-08-07 06:24 | Outpatient (CLI) | payer MEDICARE, OTHER, SELFPAY ==
[2020-08-07] MEDS: ferric carboxy (IVPB) 750 MG in sodium chloride 0.9% (100 ml) 100 ML 460 MG IV (13:15)
== END 2020-08-07 06:25 | disposition home or self-care (01) ==
LOC: ONCMED 06:27
PROVIDERS: Visit Provider Nurse Practitioner
DX: D50.9 Iron deficiency anemia, unspecified (principal)
CPT/HCPCS: 96365; J1439

== ENCOUNTER 2020-08-15 05:58 | Outpatient (CLI) | payer MEDICARE, OTHER, SELFPAY ==
[2020-08-15] MEDS: ferric carboxy (IVPB) 750 MG in sodium chloride 0.9% (100 ml) 100 ML 345 MG IV (13:10)
== END 2020-08-15 05:59 | disposition home or self-care (01) ==
LOC: ONCMED 06:00
PROVIDERS: Visit Provider Nurse Practitioner
DX: D50.8 Other iron deficiency anemias (principal)
CPT/HCPCS: 96365; J1439

== ENCOUNTER 2020-08-26 08:31 | Outpatient (CLI) | payer MEDICARE, OTHER, SELFPAY ==
--- NOTE | 2020-08-26 08:15 | XR_ITS ---
WS: [id number] ABDOMEN KUB CLINICAL INFORMATION: Renal/ureteral calculi. COMPARISON: None. FINDINGS: Right double-J ureteral stent. Double-J ureteral stent is unchanged since the prior examinations. Ret roperitoneal surgical clips. No visualized renal parenchymal or ureteral calculi. No other significan t findings. XR/XR KUB [id number] Impression: 1. Right double-J ureteral stent is unchanged since the prior examinations. 2. No renal parenchymal or ureteral calculi visualized.
== END 2020-08-26 08:32 | disposition home or self-care (01) ==
LOC: RAD 08:38
PROVIDERS: PCP Internal Medicine Medical Oncology; Visit Provider Urology
DX: N13.5 Crossing vessel and stricture of ureter without hydronephrosis (principal); N20.0 Calculus of kidney; N20.1 Calculus of ureter; Z96.0 Presence of urogenital implants
CPT/HCPCS: 74018; 81003

== ENCOUNTER 2020-09-02 06:16 | Outpatient (CLI) | payer MEDICARE, OTHER, SELFPAY | END 2020-09-02 06:17 | disposition home or self-care (01) | LOC: ONCMED 06:20 | PROVIDERS: PCP Internal Medicine Medical Oncology; Visit Provider Nurse Practitioner | DX: Z45.2 Encounter for adjustment and management of vascular access device (principal); Z20.828 Contact with and (suspected) exposure to other viral communicable diseases | CPT/HCPCS: 87635; 96523 ==

== ENCOUNTER 2020-09-05 10:26 | Day surgery (SDC) | payer MEDICARE, OTHER, SELFPAY ==
[2020-09-04 17:13] VITALS: BMI 19.3
--- NOTE | 2020-09-05 | SCC_ITS ---
Procedure Done: Cystoscopy, RIGHT: Retrograde ureteropyelogram, ureteroscopy, exchange ureteral stent 25.3 seconds of fluoroscopic guidance, for a cumulative dose of 3.71 mGy, was provided to Dr. Cooper by the radiology department. C-arm images of the abdomen were saved for the patient's permanent record. [facility]
--- NOTE | 2020-09-05 11:54 | SC_ITS ---
WS: [id number] C-ARM RADIOGRAPHS PELVIS; 3 IMAGES HISTORY: Right ureteral stent change possible ureteroscopy COMPARISON: None available. Intraoperative imaging during ureteroscopy and a RIGHT ureteral stent placement. SC/C-arm FL for Urology IMPRESSION: Intraoperative imaging during RIGHT ureteral stent placement.
[2020-09-05 12:01] VITALS: BP 153/93; PULSE 102; RESP 18; TEMP 36.4; O2SAT 90
--- NOTE | 2020-09-05 12:03 | ANES.PREANE2 ---
Pre-Anesthetic Assessment Pre-Anesthetic Assessment: Height/Weight: Height 1.68 m Weight 54.431 kg Preop Diagnosis: Extrinsic right ureteral obstruction Proposed Procedure: Operation Date: 09/05/20 12:00 Proposed Procedures p Cystoscopy 41493 N13.5(Not Applicable) - Jake Cooper MD s Retrograde Pyelogram(Right) - MD taqueria [place] Ureteral Stent Exchange(Not Applicable) - Jake Cooper MD Familial anesthetic complications: none Was Beta Magdalena taken within 24 hours: N/A Social: Social History: Tobacco Exam: Pre-Anes Outpt Exam: alert, oriented x 3 and regular rate & rhythm Additional Exam Findings (including area of procedure): coarse breath sounds b/l 90% o2 sat on RA Airway: MP: 2 Dentition: Other (multiple missing teeth poor dentition) Pulmonary: Pulmonary: COPD (O2 at night, prn during day), NICOLAS and SOB CV/HEM: CV/HEM: HTN GI: GI: GERD Metabolic: Metabolic: Thyroid Anesthetic Plan: ASA status: 3 Anesthesia: General Risk of > 500 ml blood loss (7ml/kg in children): No PFSH Anesthesia PFSH: Medical History Extrinsic ureteral obstruction Hydronephrosis, right Ovarian cancer on right Pelvic pain in female Recurrent UTI Secondary malignant neoplasm of other specified sites Surgical History History of hysterectomy with bilateral oophorectomy History of right hemicolectomy Family History Mother , at age 59 Cancer breast Myocardial infarction (lateral wall) Father Cancer prostate cancer Pacemaker Other CAD (coronary artery disease) Hypertension Social History Smoking and tobacco status: current every day smoker Alcohol intake: never Adopted: No Caregiver/support person: No Lives independently: No Household members: spouse Marital status: Current occupational status: disabled History of recent travel: No Female Reproductive History: Date of last menstrual period: 12/01/19 Data Anesthesia Cardiac Studies: No Data to Display
--- NOTE | 2020-09-05 12:33 | W.PM.OPSUD ---
Surgery/Procedure H&P Update DATE OF PROCEDURE: September 05, 2020 DATE H&P PERFORMED: 08/26/20 H&P UPDATE INFORMATION: I have reviewed H&P completed within last 30 days, I have examined patient prior to procedure, No changes to prior documentation and H&P is in [facility] EMR on date indicated PREOP DIAGNOSIS: Extrinsic right ureteral obstruction PLANNED PROCEDURE: Operation Date: 09/05/20 12:00 Proposed Procedures p Cystoscopy 98139 N13.5(Not Applicable) - Jake Cooper MD s Retrograde Pyelogram(Right) - Jake Cooper MD s Ureteral Stent Exchange(Not Applicable) - Jake Cooper MD
[2020-09-05] MEDS: sodium chloride 0.9% 1,000 ML 30 ML IV (12:34)
--- NOTE | 2020-09-05 12:37 | P.OP_ITS ---
Operative Report Date of procedure: September 05, 2020 Pre-op Diagnosis: Extrinsic right ureteral obstruction Post-op diagnosis: same Procedure Done: Cystoscopy, RIGHT: Retrograde ureteropyelogram, ureteroscopy, exchange ureteral stent Implants: Right ureteral stent Pathology: none sent Surgeon: Kenneth Anesthesia: General Estimated blood loss: Minimal Condition: stable Disposition: PACU Brief History: Mrs. Carrasco is a very pleasant 60-year-old white female with a history of [employer] malignancy obstructing her right ureter. She has been maintained with ureteral stent initially placed in [place] after reconstructive and extirpative surgery. Was found on previous endoscopy to have a dense ureteral stricture. She apparently has responded very well to her chemotherapy regimen with what she describes as resolution of the pelvic mass. It is likely that she will have to maintain a stent but we decided at this stent exchange to reevaluate the right ureter to look to see if the ureter is in better shape than originally. If not a stent will be replaced. We also reviewed long-term strategies for defunctionalized ureter with rerouting potentially. Procedure: After routine preoperative evaluation examination and obtaining of informed consent she was taken to the operating suite on 09/05/2020 where general anesthesia was administered without difficulty after appropriate timeout was performed, SCDs confirmed to be functioning, preoperative antibiotics administered, beta-priya protocol confirmed. Prepped and draped in the usual sterile fashion in dorsolithotomy position pain careful attention to avoiding pressure points. 21 Salvadorean cystoscope with 30 degree lens was introduced to the urethral meatus and advanced to the bladder under videoscopy. The bladder was systematically examined and the stent was in the expected position. A flexible tip guidewire was advanced up the right ureter next to the stent but as before I could not bypass the obstructed area. Grasping forceps were then utilized to secure the distal aspect of the stent and it was withdrawn through the urethral meatus and a guidewire was passed through the stent up the ureter curling in the area of the upper pole calyx. The stent was withdrawn over the guidewire. Under fluoroscopic monitoring the stent was withdrawn with grasping forceps with a easy uncurling of the proximal end. An 8 Salvadorean cone-tipped catheter was intubated into the right ureteral orifice for right retrograde ureteropyelogram: This showed an abrupt change in the area previously noted obstruction the contrast could not be advanced beyond. The ureter distal to that point was normal. The ureter proximal to that point was not visualized A 7 Salvadorean offset semirigid ureteroscope was advanced next to the wire up the right ureter to inspect the ureter. Findings were consistent with previous examination with dense tissue at this level that could not be bypassed with the scope. The scope was removed and the cystoscope was backloaded over the guidewire and a 7 Salvadorean by 26 cm double-pigtail stent was advanced over the guidewire through the cystoscope into appropriate position as confirmed via fluoroscopy and cystoscopy. Bladder was drained. She tolerated the procedure well without complications and was awakened in the operating room and returned to the recovery in stable condition. PLANS: 1. Discharge from outpatient surgery after recovery 2. Follow-up in about 4 months in my office with [facility].
[2020-09-05] MEDS: levofloxacin-dextrose 5 % 500 MG/100 ML PREMIX 100 MG IV (12:38)
[2020-09-05] MEDS: iohexol 300 mg/mL 50 mL Btl VAGINAL (12:56)
[2020-09-05 13:08] VITALS: BP 156/85; PULSE 86; RESP 18; TEMP 36.6; O2SAT 95
[2020-09-05 13:43] VITALS: BP 149/92; PULSE 86; RESP 18; TEMP 37.1; O2SAT 99
--- NOTE | 2020-09-05 15:53 | ANE.PACU2 ---
Inpatient post-anesthesia follow up: Airway intact: Yes Vital signs: Temperature 98.7 F Pulse Rate 86 Respiratory Rate 18 Blood Pressure 149/92 Pulse Oximetry 99 Oxygen Delivery Me thod Room Air Oxygen Flow Rate 2 Fraction of Inspir ed Oxygen Hydration adequate: Yes Nausea and vomiting: No Pain level: 1 Mental status: Baseline
== END 2020-09-05 14:02 | disposition home or self-care (01) ==
PROVIDERS: PCP Internal Medicine Medical Oncology; Visit Provider Urology
PROC: 0TJB8ZZ Inspection of Bladder, Via Natural or Artificial Opening Endoscopic (ICD-10-PCS; CPT 52000; principal; 2020-09-05 12:00)
PROC: (CPT 74420; 2020-09-05 12:00)
PROC: (CPT 52332; 2020-09-05 12:00)
PROC: 0TJ98ZZ Inspection of Ureter, Via Natural or Artificial Opening Endoscopic (ICD-10-PCS; CPT 52351; 2020-09-05 12:00)
DX: N13.5 Crossing vessel and stricture of ureter without hydronephrosis (principal); J44.9 Chronic obstructive pulmonary disease, unspecified; Z99.81 Dependence on supplemental oxygen; I10 Essential (primary) hypertension; K21.9 Gastro-esophageal reflux disease without esophagitis; Z85.43 Personal history of malignant neoplasm of ovary; F17.210 Nicotine dependence, cigarettes, uncomplicated
CPT/HCPCS: 52332; 52351; 12345; 76000; J1956; J2250; J2704; J3010; J7030; Q9967; T1015-U1

== ENCOUNTER 2020-09-26 11:26 | Outpatient (CLI) | payer MEDICARE, OTHER, SELFPAY ==
[2020-09-26 12:10] LABS: Basophils # 0.1 10^3/uL (0.0-0.1); Basophils % 1.1 %; Eosinophils # 0.1 10^3/uL (0.0-0.8); Eosinophils % 1.9 %; Hematocrit 43.6 % (37.0-47.0); Hemoglobin 14.1 g/dL (11.5-15.3); Lymphocytes # 1.1 10^3/uL (0.8-4.8); Lymphocytes % 24.2 %; Mean Corpuscular HGB Conc 32.3 g/dL (30.0-36.0); Mean Corpuscular Hemoglobin 29.9 pg (28.0-34.0); Mean Corpuscular Volume 92.6 fL (81-99); Mean Platelet Volume 10.3 fL (7.4-10.4); Monocytes # 0.4 10^3/uL (0.2-0.9); Monocytes % 7.6 %; Neutrophils # 2.99 10^3/uL (1.8-7.7); Neutrophils % 64.8 %; Nucleated Red Blood Cells % 0 %; Platelet Count 140 10^3/cmm (130-400); Red Blood Count 4.71 10^6/uL (4.1-5.3); Red Cell Distribution Width 21.2 % (12.1-15.1); White Blood Count 4.6 10^3/uL (4.0-10.0)
[2020-09-26 12:37] LABS: Alanine Aminotransferase 8 U/L (0-33); Albumin Level 4.2 g/dL (3.5-5.2); Alkaline Phosphatase 95 IU/L (35-105); Anion Gap 13.4 (5-19); Aspartate Amino Transferase 14 U/L (0-32); Blood Urea Nitrogen 9 mg/dL (8-23); CA 125 7.6 U/mL (0-35); Calcium 9.2 mg/dL (8.5-10.5); Carbon Dioxide 30 mmol/L (22-29); Chloride 92 mmol/L (98-107); Ferritin 248 ng/mL (15-150); Globulin 2.7 g/dL (1.3-4.6); Glomerular Filtration Rate 84.8 mL/min (90-130); Glucose 80 mg/dL (65-115); Iron 69 ug/dL (37-145); Osmolality Calculated 270 mOsm/kg (285-295); Percent Saturation 28.1 % (20-50); Potassium 4.4 mmol/L (3.5-5.1); Sodium 131 mmol/L (136-145); Total Bilirubin 0.4 mg/dL (0.15-1.2); Total Iron Binding Capacity 245 mcg/dl; Total Protein 6.9 g/dL (6.6-8.7); Unsaturated Iron Binding 176 ug/dL (112-347)
--- NOTE | 2020-09-29 23:15 | ONC FU_ITS ---
[facility] Patient Note Patient: Nisreen Carrasco V Unit #: [id number]: [id number] Dictated By: Daniella JacobsenDate of Visit: Sep 26, 2020 Onc MED Follow-Up/Prog Note Chief Complaint: Ovarian cancer History of Present Illness: Mrs Carrasco is a 60 year-old woman with recurrent ovarian cancer. She had optimal resection with her initial surgery back in May 2003. She had documented recurrence in July 2008, nearly 5 years after completion of adjuvant chemotherapy with 6 cycles of carboplatin/Taxol. She was retreated at that time with carboplatin/Taxol chemotherapy, but in combination with Avastin. Treatment was stopped after 4 cycles because of worsening neuropathy, but she did have a very good clinical response with normalization of the CA-125 level. She was then followed on observation. She did well until July 2012 when she presented with small bowel obstruction. Her Ca-125 level at that point had not increased and the obstruction initially did improve with conservative management. Ultimately, though, she was confirmed to have disease recurrence in the abdomen. She underwent surgery at [facility] in October 2012. At laparotomy there were extensive adhesions in the abdomen, but there was recurrent tumor in the right mid abdomen and right upper quadrant. It was involving the cecum, the mesocolon, and the small bowel mesentery in a multiple twisted mass. There also was periaortic juanita involvement. She underwent right hemicolectomy and primary anastamosis of the bowel with complete resection of the mass. 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 She had gradual recovery from that procedure. In February 2013 she restarted chemotherapy with carboplatin in combination with gemcitabine. She experienced a significant hypersensitivity reaction to the carboplatin with the third cycle of treatment. She then continued chemotherapy with single agent gemcitabine. She experienced significant fatigue and myelosuppression with gemcitabine, even at a reduced dose level. She did not tolerate an attempt at dose escalation. She had some ongoing GI symptoms during this time, but no documented disease progression. She had a followup visit with Dr. David in January 2014. Her disease at that time appeared stable, and it was recommended that she stop chemotherapy again and just go back on observation. By May 2015 she was having significantly more abdominal pain and repeat CT abdomen/pelvis at that point was highly suspicious for recurrent metastatic disease at the site of the ileocolic anastomosis. That study showed no obvious metastatic involvement in the liver and no ascites. In June 2015 she restarted chemotherapy with weekly paclitaxel. She initially was tolerating it pretty well on a day 1/day 8 schedule every 3 weeks. She had presented at day 15 of her third cycle with severe abdominal pain and nausea. Repeat CT scan showed increasing soft tissue at the ileocolic anastomosis. There was a large amount of fecal material proximal to that site, and an area of stenosis was suspected. She did improve, though, with conservative management, and she subsequently was able to continue chemotherapy with weekly paclitaxel. As of November 2015 she had completed 7 cycles of treatment. Her chemotherapy was put on hold after her cycle 8 day 1 treatment due to diarrhea and increased abdominal pain. Abdominal x-rays showed just nonspecific gas pattern in the left abdomen. She had restaging CT abdomen/pelvis again on 01/13/2016. It showed no obstruction and no evidence of disease progression. There was no lymphadenopathy or ascites noted. Her symptoms had subsequently improved, and she did then proceed with her 9th cycle of chemotherapy. Beginning with cycle 10, I did have her change to a day 1/day 15 schedule. She had subsequently tolerated it much better. As of her follow-up visit on 08/06/2016, she appeared stable clinically, and at that point she continued with her 16th cycle of treatment. Her day 15 treatment with that cycle was not administered. She continued treatment with cycle 18 day 1 on 10/01/2016. On 10/06/2016 she was admitted to the hospital with pneumonia. CT pulmonary angiogram at that time showed no evidence of pulmonary emboli. There were widespread tree-in-bud pulmonary parenchymal nodularities and there was evidence of underlying chronic emphysema. There was new hilar or mediastinal lymphadenopathy noted, possibly reactive or neoplastic. Also noted was a superior segment left lower lobe pulmonary nodule measuring 8.4 mm. She did improve on antibiotic therapy, and she was discharged home on 10/10/2016. She had quit smoking just prior to the hospitalization. She did not receive day 15 treatment with that cycle. During subsequent follow-up, it was opted to keep her chemotherapy on hold, as her disease had been very stable. Restaging CT scans of the chest, abdomen, and pelvis on 04/28/2017 showed resolved hilar and mediastinal adenopathy and resolved left lower lobe pulmonary nodule. There was stable appearance of the ileocolic anastomosis. There was no evidence of disease progression. Her other medical illnesses include hypertension, hypercholesterolemia and gastroesophageal reflux disease. She also has chronic obstructive pulmonary disease and she had a pretty severe episode of pneumonia in December 2008. She had stopped smoking following her hospitalization in September. 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 Other surgeries have been limited to tonsillectomy and tubal ligation. INTERIM HISTORY: Restaging CT scans of the chest, abdomen, and pelvis on 11/16/2018 showed unchanged medial middle lobe parenchymal opacity measuring 8-9 mm. Lingular and anterior left lower lobe subsegmental atelectasis and/or scarring also appeared unchanged. There was no evidence of disease progression in the chest, abdomen, or pelvis. In February 2019 she had presented with new onset of swelling in the right leg. Venous Doppler of the right leg on 03/09/2019 showed partially occlusive deep vein thrombosis of the superficial femoral vein with thrombus noted to extend into the greater saphenous vein. She began on anticoagulation with apixaban. Restaging CT scans on 03/22/2019 showed stable 8-9 mm pulmonary nodule in the right middle lobe. Right hilar and infrahilar hilar lymph nodes also appeared stable. Moderate right hydronephrosis with right ureterectasis appeared to be new. Slightly prominent right inguinal lymph nodes appeared unchanged. Overall, there was no evidence of disease progression in the chest, abdomen, or pelvis. She continued on observation/expectant management. In April 2019 a next generation sequencing study was performed on the specimen from her surgical resection in October 2012. It showed presence of a BRCA1 mutation, presumed to be somatic, as her original germline BRCA testing was negative. There were no other actionable mutations identified. She had come in presented for a scheduled port flush in May 2019. At that time she reported increased abdominal pain, mainly in the right lower quadrant and right groin area. It was noted that her CA-125 level, though still in normal range, had been increasing. At that point it was up to 14.0 U/mL compared to 8.6 U/mL in October 2018. Repeat CT abdomen/pelvis on 06/22/2019 showed enlarging soft tissue mass in the right side of the pelvis measuring 3.5 cm. This was noted to be in the area of surgical clips from her prior hysterectomy, and the appearance was felt to be consistent with local recurrence or metastatic adenopathy. The mass was noted to be adjacent to and possibly invading the psoas muscle. There was increasing hydronephrosis of the right kidney. She was referred to Dr. David. On 07/18/2019 she underwent exploratory laparotomy with extensive adhesive lysis and extensive retroperitoneal exploration and debulking of right pelvic/psoas muscle tumor. The tumor was noted to obstruct the right ureter, and the procedure included placement of a right ureteral stent. Pathology showed high-grade carcinoma which was PAX-8 and WT-1 positive. During follow-up she had ongoing problems with urinary tract infection and she continued to have significant pain in the right groin area and lower abdomen. Her repeat CT abdomen/pelvis on 12/12/2019 showed progression of a right pelvic mass compared to the June 2019 study. At that point it measured 5.8 x 3.8 x 6.5 cm and it was noted to encase the right ureter. It was inseparable from the distal small bowel loops and it was noted to abut the right L5-S1 disc space. There was interval placement of right ureteral stent with resolution of right hydronephrosis. With those findings and with the known BRCA mutation, she began a trial of therapy with olaparib 300 mg bid on 12/18/2019. As of her follow-up visit on 02/21/2020 she was still having significant pain in the right lower quadrant area and she also was reporting increased nausea and fatigue. There had been a significant decline in her CA 125 level. It was suspected that at least some of her symptoms were treatment related. She continued the olaparib, but with the dosage reduced to 200 mg twice daily. Subsequent to that visit she had 2 hospitalizations at [facility], only by 4 or 5 days. On both occasions she had bowel obstruction which was relieved with conservative management. Dr Lynne had seen her for a follow-up visit on 03/21/2020. She was beginning to feel better. There was further decline in the CA 125 level to 6.7 U/mL compared to 32.8 U/mL on 12/26/2019. Restaging CT of the abdomen/pelvis on 05/22/2020 showed resolution of the previously described right lower quadrant pelvic mass. A right double-J ureteral stent was noted to be in place. There was right renal cortical atrophy. There was no hydronephrosis. There is no adenopathy noted in the abdomen or pelvis. There was moderate constipation. She continued the olaparib at 200 mg twice daily. She has neuropathy pain in her hands and feet. It may be a little better since she started Lyrica. Ms. Carrasco is here today for follow-up. She was recently found to have iron deficiency anemia with a Hgb on June 26 of 9.6 and follow-up July 29 was 10.7. Her iron saturation on July 29, 2020 was 9.4%. Her ferritin was 22 and her iron level was 31. She was approved for and received 2 doses of Injectafer with the last one being on August 15, 2020. She is here today for follow-up post Injectafer. She states overall she still feels really tired and short of breath. She has no appetite. She states that she has constipation and then she will have loose stools 24 hours later. She denies any new pain but states she just does not feel well overall. She denies any fever or chills. She denies any productive cough. She is had no trouble swallowing. She denies any nausea or vomiting. Her energy is just gone . She states she really does not feel any better after the Injectafer. Her ECOG is 2. Past Medical History: Chronic back pain (secondary to ruptured discs) Depression Peripheral neuropathy in 2008 Hypothyroidism in 2007 Chronic obstructive pulmonary disease in 2006 Anxiety in 2002 Coronary artery disease in 2002 Hypercholesterolemia in 2002 Hypertension in 2002 Gastroesophageal reflux disease in 2002 Past Surgical History: Stent placement in the ureter Flu vaccine in 2019 Flu vaccine in 2018 - left deltoid Prevnar 13 in 2018 - right deltoid Pneumovax in 2015 Flu vaccine in 2015 Right subclavian Port in 2015 Flu vaccine in 2015 Flu in 2014 COLONOSCOPY in 2007 Appendectomy in 2002 Hysterectomy in 2002 - WITH BSO PORT PLACEMENT in 2002 Tubal ligation in 1991 Tonsillectomy in 1964 Allergies: Carboplatin Medications: Ativan 1 mg (of 1 mg) Tablet Oral at bedtime PRN Duragesic-100 2 Patch(es) (of 100 mcg) Patch 72 Hr Transdermal q 3 days Enalapril Maleate 1 (20 mg) Tablet Oral b.i.d. Lactulose Solution Oral PRN Levothroid 1 (50 mcg) Tablet Oral daily Lyrica 1 Capsule (of 75 mg) Oral b.i.d. Magnesium 1 Capsule Oral daily MiraLax Pack Oral daily Mucinex Maximum Strength 1 Tablet (of 1200 mg) Tablet SR 12 HR Oral b.i.d. PRN NexIUM 1 (40 mg) Capsule Delayed Release Oral b.i.d. Norvasc 1 Tablet (of 5 mg) Oral daily OxyCODONE HCl 1 (20 mg) Tablet Oral q 4 hours PRN Potassium 1 Tablet (of 100 mg) Oral daily Proventil HFA Aerosol, solution Inhalation PRN Soma 1 (350 mg) Tablet Oral t.i.d. TRAZADONE 1 (100 mg) Tablet Oral at bedtime Venlafaxine HCl 1 (150 mg) Capsule SR 24 HR Oral daily Xarelto 1 Tablet (of 10 mg) Oral daily Zofran 1 Tablet (of 4 mg) Oral q 4 hours Family History: Ms. Carrasco's mother at age 59: cancer history consists of Breast cancer at age 28 while other medical history includes [place] at age 57 (cause of ). Ms. Carrasco's father is alive. Ms. Carrasco does not know if her maternal grandmother is alive. She does not know if her maternal grandfather is alive. Ms. Carrasco has 1 brother who is alive. Social History: Ms. Carrasco is and she is an on disability. She is an occasional smoker who has smoked 0.5 packs/day for 31 years. She is a former drinker. She has indicated exposure to the following products: cigarettes. Ms. Carrasco reports the following support systems: lives with spouse, significant other, family, or friends, lives in own house, supportive family/friends willing to assist with needs, and adequate transportation available for expected visits. Her diet consists of regular meals. She indicates her activity level as: daily activities. she smokes 5 cigaretter per day and has an e cigarette. Review Of Symptoms: Constitutional Denies any fever. States having nights sweats-chronic and stable. Generalized fatigue- no better/no worse . Allergic/Immunologic No reactions. Eyes Denies significant visual changes. No diplopia. No amaurosis. ENMT Denies changes in hearing, sore throat, mouth sores, difficulty or changes in swallowing ability, and/or sinus drainage. Hematologic/Lymphatic Denies easy bruising or bleeding. The patient denies any tender or palpable lymph nodes. Breasts Denies breast masses, nipple discharge, nipple inversion and pain. Respiratory non productive cough-stable and continued shortness of breath. Wears oxygen supplementation with activity. Cardiovascular Denies anginal chest pain, palpitations or orthopnea. Gastrointestinal Denies nausea, vomiting, diarrhea, GI bleeding. Has chronic constipation, has prescription laxative. Genitourinary (F) No hematuria, hesitancy, incontinence, vaginal bleeding, discharge or other problems with urination. Musculoskeletal Denies joint swelling or redness. No decreased range of motion. States having generalized joint pain-chronic. Current pain regimen is now controlling her pain. Integumentary Denies chronic rashes, inflammation, ulcerations or skin changes. Neurologic Denies any no areas of focal weakness or numbness. Normal gait. No sensory problems.. back and leg pain-chronic and no worse than her normal. Psychiatric Denies worsening depression, denies any stephanie or mood swings. Vital Signs: Performed on Sep 26, 2020 13:01 Height - 67.00 in Weight - 122.2 lbs (LOW) BSA - 1.64 sq.m BMI - 19.14 Temperature - 99.6 F (HIGH) Pulse - 88 /min Respiration - 20 /min BP - 148/79 mm(hg) (HIGH) O2 Sat - 91 % (LOW) Pain - 4,2 - Ambulatory/capable of all self-care, unable to perform any work activities. Up and about more than 50% of waking hours. (ECOG) Physical Examination: Constitutional Alert, oriented, no acute distress. Skin pink, warm and dry. Frail in appearance but she is wearing make up and has taken care in her attire. Head Normocephalic; atraumatic. Eyes Conjunctivae and sclerae are clear and without icterus. ENMT Sinuses are nontender. No oral exudates, ulcers, masses, or mucositis. Oropharynx clear. Neck Supple without masses or thyromegaly. No jugular venous distension. Hematologic/Lymphatic No petechiae or purpura. No tender or palpable lymph nodes in the cervical, supraclavicular areas. Respiratory Lungs are raspy bilaterally to auscultation without wheezing. Cardiovascular Regular rate and rhythm of heart without murmurs,clicks, gallops or rubs. Chest Chest is symmetric without chest wall deformities. Venous access device insertion site is unremarkable. Abdomen Non-tender, non-distended, no masses, ascites. Back/Spine Non-tender to palpation. Extremities No visible deformities, no cyanosis, clubbing. No lower extremity edema. Musculoskeletal No tenderness or swelling, normal range of motion without obvious weakness. Integumentary No rashes or lesions. Neurologic No sensory or motor deficits, normal cerebellar function, normal gait. Psychiatric Alert and oriented times three. Coherent speech. Verbalizes understanding of our discussions today. Laboratory:Test performed on Sep 26, 2020 11:45 Ferritin 248 ng/mL Iron 69 mcg/dL Sodium 131 mmol/L Iron Binding Capacity (TIBC) 245 mcg/dl Potassium 4.4 mmol/L % Iron Saturation 28.1 % Chloride 92 mmol/L CO2 30 mmol/L UIBC 176 mcg/dL Anion Gap 13.4 BUN 9 mg/dL Creatinine 0.7 mg/dL Cr Clearance (Est) 72.92 mL/min eGFR 84.8 mL/min Glucose 80 mg/dL Osmolality - Calculated 270 mOsm/kg Calcium 9.2 mg/dL Protein, Total 6.9 g/dL Albumin 4.2 g/dL Globulin 2.7 g/dL Bilirubin, Total 0.4 mg/dL ALT (SGPT) 8 U/L AST (SGOT) 14 U/L Alkaline Phosphatase 95 IU/L WBC 4.6 10 3/uL RBC 4.71 10 6/uL HGB 14.1 g/dL HCT 43.6 % MCV 92.6 fL MCH 29.9 pg MCHC 32.3 g/dL RDW 21.2 % Platelet Count 140 10 3/cmm MPV 10.3 fL Neutrophils 2.99 10 3/uL Lymphocytes 1.1 10 3/uL Monocytes 0.4 10 3/uL Eosinophils 0.1 10 3/uL Basophils 0.1 10 3/uL Neutrophil % 64.8 % Lymphocyte % 24.2 % Monocyte % 7.6 % Eosinophil % 1.9 % Basophils % 1.1 % NRBC % 0 % CA-125 7.6 U/mL Test performed on Jun 26, 2020 14:30 Ua Color Yellow Ua Appearance Clear Ua Glucose Norm Ua Bilirubin Neg Ua Ketones Negative Ua Specific [place] 1.005 Ua Blood Neg Ua pH 7.0 Ua Protein Neg Ua Nitrites Negative Ua Leukocyte Esterase Negative Impression: 1. Patient with recurrent ovarian cancer. By next generation sequencing her tumor was noted to harbor a BRCA1 mutation, presumed somatic, as her original testing for germline BRCA was negative. Her tumor also was tested and found to be MSI stable with intact mismatch repair proteins. 2. She had optimal debulking following initial diagnosis in May 2003, and she received adjuvant chemotherapy with 6 cycles of carboplatin/paclitaxel. 3. She had further treatment with 4 cycles of carboplatin/paclitaxel in combination with Avastin following documented recurrence in July 2008. 4. She had restarted chemotherapy with carboplatin/gemcitabine in February 2013 following a surgical debulking procedure for disease progression with associated bowel obstruction. Her treatment was subsequently modified to single agent gemcitabine as a result of a hypersensitivity reaction to carboplatin. She had some response to the chemotherapy. As of January 2014 her disease was felt to be stable, and she was then observed off treatment. 5.. In May 2015 she restarted chemotherapy with weekly paclitaxel. Following her cycle 18 treatment on 09/17/2016 she had another hospital admission for pneumonia. As her disease had been stable and her performance status had been declining, her chemotherapy at that point was put on hold. Her other medical illnesses include: 6. Hypertension. 7. Hyperlipidemia. 8. GERD. 9. COPD. 10. Degenerative disease of the spine with chronic back pain. 9. Chronic anxiety/depression. 10. She has nicotine dependence (cigarettes). During follow-up she has continued to have multiple chronic complaints, including abdominal pain and constipation along with fatigue, insomnia, back pain, and neuropathy from her previous chemotherapy. She also has significant underlying COPD, and she has been having chronic cystitis symptoms. In February 2019 she presented with swelling in the right leg, she was found to have deep vein thrombosis by venous Doppler. She has since then been on anticoagulation with apixaban. Her restaging CT scans in March 2019 showed no obvious disease progression in the chest, abdomen, or pelvis, but there was evidence of new moderate right hydronephrosis with dilatation of the right proximal ureter. She then presented recently with increased pain in the right lower quadrant of the abdomen and right groin area. There has been a gradual increase in her CA-125 level. Her repeat [address] abdomen/pelvis on 06/22/2019 shows a 3.5 cm soft tissue mass in the right pelvis suspicious for local recurrence or lymphadenopathy, and there is also increasing right hydronephrosis. Overall, the findings were consistent with progression of the ovarian cancer. She was referred to Dr. David and on 07/18/2019 she underwent exploratory laparotomy with adhesolysis and with debulking of the right pelvic tumor. He tumor was obstructing the right ureter, and the procedure also included placement of a right ureteral stent. She had gradual recovery from the surgery. During subsequent follow-up she continued to have very limited activity and she had ongoing problems with recurrent urinary tract infection associated with the ureteral stent. She also continues to have significant pain in the lower abdomen/right groin area, and a repeat CT abdomen/pelvis on 12/12/2019 showed progression of a right pelvic mass compared to the June 2019 study. At that point it measured 5.8 x 3.8 x 6.5 cm and it was noted to encase the right ureter. It was inseparable from the distal small bowel loops and it was noted to abut the right L5-S1 disc space. There was interval placement of right ureteral stent with resolution of right hydronephrosis. With those findings and with the known BRCA mutation, she began trial of therapy with olaparib 300 mg bid on 12/18/2019. Initially she was tolerating it pretty well. As of her followup visit on 02/21/2020 she was having significant nausea and abdominal pain, and she also reported worsening fatigue. I had suspected that at least some of those symptoms were treatment related. However, that point there also had been a significant decline in the CA-125 level. She was advised to continue the olaparib, but with the dosage reduced to 200 mg twice daily. Subsequent to that visit she had 2 hospitalizations at [facility]. Both were for bowel obstruction, and on both occasions it resolved with conservative management. As of her follow-up visit on 03/21/2020 she was beginning to feel better, and she continued the olaparib at 200 mg twice daily. As of 04/10/2020 her symptoms had had shown some improvement, though she still had limited activity tolerance, and she continued to have nausea and anorexia with the olaparib. At that point her CA-125 had declined to 6.7 U/mL, and it then stabilized at that level. During follow-up she had ongoing problems with abdominal pain and constipation, and she also had pain with voiding. Her restaging CT abdomen/pelvis on 05/22/2020 showed resolution of the right pelvic mass with no residual hydronephrosis. There was evidence of constipation. Overall, she has had a very good response to the PARP inhibitor, though she continues to have multiple chronic complaints. Plan: 1. Continue with current plan of care. Her anemia has corrected her hemoglobin today is 14.1. Her iron deficiency has also improved with her iron sat being 28.1% ferritin 248 and iron level is 69. I am doubtful that she is taking Lynparza as there is no record of refill prescriptions. 2. Today's labs were reviewed in detail and discussed with Ms. Carrasco and a copy was given to her. WBC 4.6, hemoglobin 14.1, platelets 140,000 ANC is 3000 sodium 131 potassium 0.7 LFTs are normal and iron studies are as above. Her CA-125 is 7.6 which is stable compared to July 29, 2020. 3. I did refill her antibiotics to her local pharmacy as she does have some raspy lung sounds today.???She is prone to getting pneumonia very easily. She verbalized when to take the antibiotics and has no questions. 4. We will plan to see her back after the first of the year and restage her with chest/abdomen/pelvis with contrast hopefully we can obtain this on the same day as her appointment to avoid her driving over [address] to our office. 5. She will continue her current pain regimen to include fentanyl patch at 100 mcg daily and oxycodone 30 mg every 4-6 hours as needed breakthrough pain. 6. Mrs. Carrasco was encouraged to contact us in the interim should questions or problems arise. Signed By: Daniella Jacobsen-, BRITTANI Lynne MD <<Signature on File>>
== END 2020-09-26 11:27 | disposition home or self-care (01) ==
LOC: ONCMED 11:29
PROVIDERS: Visit Provider Nurse Practitioner
DX: C56.1 Malignant neoplasm of right ovary (principal); D50.9 Iron deficiency anemia, unspecified; R05 Cough; R06.02 Shortness of breath; K59.00 Constipation, unspecified; G89.29 Other chronic pain; Z87.01 Personal history of pneumonia (recurrent); F17.210 Nicotine dependence, cigarettes, uncomplicated; I10 Essential (primary) hypertension; E78.5 Hyperlipidemia, unspecified; K21.9 Gastro-esophageal reflux disease without esophagitis; J44.9 Chronic obstructive pulmonary disease, unspecified; M47.9 Spondylosis, unspecified; F41.8 Other specified anxiety disorders; Z79.2 Long term (current) use of antibiotics; Z79.891 Long term (current) use of opiate analgesic
CPT/HCPCS: 36591; 80053; 82728; 83540; 83550; 85025; 86304; 99214

== ENCOUNTER 2020-11-07 09:14 | Outpatient (CLI) | payer MEDICARE, OTHER, SELFPAY ==
[2020-11-07 09:55] LABS: Basophils % 0.7 %; Eosinophils # 0.1 10^3/uL (0.0-0.8); Eosinophils % 1.7 %; Hemoglobin 14.5 g/dL (11.5-15.3); Lymphocytes # 0.9 10^3/uL (0.8-4.8); Lymphocytes % 21.1 %; Mean Corpuscular HGB Conc 33.7 g/dL (30.0-36.0); Mean Corpuscular Hemoglobin 32.4 pg (28.0-34.0); Mean Platelet Volume 9.6 fL (7.4-10.4); Monocytes # 0.4 10^3/uL (0.2-0.9); Monocytes % 9.5 %; Neutrophils # 2.75 10^3/uL (1.8-7.7); Neutrophils % 66.8 %; Nucleated Red Blood Cells % 0 %; Platelet Count 125 10^3/cmm (130-400); Red Blood Count 4.48 10^6/uL (4.1-5.3); White Blood Count 4.1 10^3/uL (4.0-10.0)
[2020-11-07 10:23] LABS: Alanine Aminotransferase 10 U/L (0-33); Albumin Level 4.4 g/dL (3.5-5.2); Alkaline Phosphatase 86 IU/L (35-105); Blood Urea Nitrogen 8 mg/dL (8-23); Calcium 9.1 mg/dL (8.5-10.5); Carbon Dioxide 33 mmol/L (22-29); Chloride 92 mmol/L (98-107); Globulin 2.7 g/dL (1.3-4.6); Glomerular Filtration Rate 101.3 mL/min (90-130); Glucose 74 mg/dL (65-115); Osmolality Calculated 271 mOsm/kg (285-295); Sodium 132 mmol/L (136-145); Total Bilirubin 0.5 mg/dL (0.15-1.2); Total Protein 7.1 g/dL (6.6-8.7)
--- NOTE | 2020-11-07 10:27 | CT_ITS ---
WS: [id number] CT CHEST, ABDOMEN AND PELVIS WITH CONTRAST HISTORY: FOLLOW UP METASTATIC OVARIAN CANCER/SHORTNESS OF BREATH TECHNIQUE: Contiguous 5 mm axial imaging performed through the chest, abdomen and pelvis with IV cont rast, oral contrast has been provided. Coronal and sagittal reformats chest. Coronal and sagittal ref ormats through the abdomen and pelvis. All CT scans at [facility] use at least one of the se dose optimization techniques: automated exposure control; mA and/or kV adjustment per patient size (includes targeted exams where dose is matched to clinical indication); or iterative reconstruction. CONTRAST: Omnipaque 300; 95 mL IV. DLP: 983.72 mGy.cm COMPARISON: 05/22/2020 and 03/22/[address]: No change in the RIGHT middle lobe 8 mm nodule. No new pulmonary nodules. Subsegmental area s of atelectasis at the lingula and LEFT lower lobe. Focal area of groundglass attenuation periphery of the RIGHT lower lobe, image 47 of series 4. Port-A-Cath present with tip in the distal SVC. Stable RIGHT hilar lymph nodes with the largest measuring 9 mm. No increase in number or size of the lymph nodes. Pulmonary artery size is equal to the aorta. Mild enlargement of the LEFT heart chambers. Mild atherosclerosis aorta. Small hiatal hernia. Abdomen CT: No metastatic disease to the liver or spleen. There is very mild central bile duct dilata tion similar to prior studies. Normally distended gallbladder. Pancreas is very small caliber and poo rly visualized. No adrenal mass. Moderate atherosclerosis aorta with no aneurysm. Moderate atrophy of the RIGHT kidney. There is a double pigtail RIGHT ureteral stent present which remains in good posit ion. No obstruction of the LEFT kidney. There is extensive diffuse constipation and fecal retention. Slightly lobulated enhancing soft tissue nodule in the RIGHT pelvis. Very closely associated with the RIGHT ureteral stent in the psoas muscle. This is the same location as the prior recurrence. Pelvic CT: No free fluid in the pelvis. Well-distended urinary bladder. Pigtail catheter from the RIG HT ureteral stent is present. Prior hysterectomy. Small benign appearing inguinal lymph nodes. Osteopenia. Advanced degenerative disc space narrowing and osteophytosis at L5-S1. No osteoblastic or osteolytic bone disease seen. CT/CT chest abd pel w con* IMPRESSION: 1. Possible tumor recurrence in the RIGHT pelvis. Slightly lobulated soft tiss ue nodule measuring 2.4 cm adjacent to the ureteral stent with possible invasio n into the RIGHT psoas muscle. This is the same location of the previously desc ribed recurrence as noted on 06/22/2019. 2. New subsegmental atelectasis in the lingula and LEFT lower lobe. 3. No change in position of the double pigtail RIGHT ureteral stent with persi stent RIGHT renal atrophy. 4. Diffuse severe constipation.
[2020-11-07 10:32] LABS: Anion Gap 11.4 (5-19); Aspartate Amino Transferase 17 U/L (0-32); Potassium 4.4 mmol/L (3.5-5.1)
[2020-11-07] MEDS: iohexol 300 mg/mL 100 mL Btl IV (11:52)
[2020-11-07] MEDS: iohexol 300 mg/mL 50 mL Btl PO (12:00)
[2020-11-07 13:45] LABS: CA 125 8.9 U/mL (0-35)
--- NOTE | 2020-11-07 19:28 | ONC FU_ITS ---
Dr. Lynne Patient Follow-Up Note Patient: Nisreen Carrasco V Unit #: [id number]: 1960 Dicatated By: Ravi Lynne M.D.Date of Visit:Nov 07, 2020 Onc Med Follow-up/Prog Note Chief Complaint: Ovarian cancer History of Present Illness: This is a 60 year-old woman with recurrent ovarian cancer. She had optimal resection with her initial surgery back in May 2003. She had documented recurrence in July 2008, nearly 5 years after completion of adjuvant chemotherapy with 6 cycles of carboplatin/Taxol. She was retreated at that time with carboplatin/Taxol chemotherapy, but in combination with Avastin. Treatment was stopped after 4 cycles because of worsening neuropathy, but she did have a very good clinical response with normalization of the CA-125 level. She was then followed on observation. She did well until July 2012 when she presented with small bowel obstruction. Her Ca-125 level at that point had not increased and the obstruction initially did improve with conservative management. Ultimately, though, she was confirmed to have disease recurrence in the abdomen. She underwent surgery at [facility] in October 2012. At laparotomy there were extensive adhesions in the abdomen, but there was recurrent tumor in the right mid abdomen and right upper quadrant. It was involving the cecum, the mesocolon, and the small bowel mesentery in a multiple twisted mass. There also was periaortic juanita involvement. She underwent right hemicolectomy and primary anastamosis of the bowel with complete resection of the mass. 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 She had gradual recovery from that procedure. In February 2013 she restarted chemotherapy with carboplatin in combination with gemcitabine. She experienced a significant hypersensitivity reaction to the carboplatin with the third cycle of treatment. She then continued chemotherapy with single agent gemcitabine. She experienced significant fatigue and myelosuppression with gemcitabine, even at a reduced dose level. She did not tolerate an attempt at dose escalation. She had some ongoing GI symptoms during this time, but no documented disease progression. She had a followup visit with Dr. David in January 2014. Her disease at that time appeared stable, and it was recommended that she stop chemotherapy again and just go back on observation. By May 2015 she was having significantly more abdominal pain and repeat CT abdomen/pelvis at that point was highly suspicious for recurrent metastatic disease at the site of the ileocolic anastomosis. That study showed no obvious metastatic involvement in the liver and no ascites. In June 2015 she restarted chemotherapy with weekly paclitaxel. She initially was tolerating it pretty well on a day 1/day 8 schedule every 3 weeks. She had presented at day 15 of her third cycle with severe abdominal pain and nausea. Repeat CT scan showed increasing soft tissue at the ileocolic anastomosis. There was a large amount of fecal material proximal to that site, and an area of stenosis was suspected. She did improve, though, with conservative management, and she subsequently was able to continue chemotherapy with weekly paclitaxel. As of November 2015 she had completed 7 cycles of treatment. Her chemotherapy was put on hold after her cycle 8 day 1 treatment due to diarrhea and increased abdominal pain. Abdominal x-rays showed just nonspecific gas pattern in the left abdomen. She had restaging CT abdomen/pelvis again on 01/13/2016. It showed no obstruction and no evidence of disease progression. There was no lymphadenopathy or ascites noted. Her symptoms had subsequently improved, and she did then proceed with her 9th cycle of chemotherapy. Beginning with cycle 10, I did have her change to a day 1/day 15 schedule. She had subsequently tolerated it much better. As of her follow-up visit on 08/06/2016, she appeared stable clinically, and at that point she continued with her 16th cycle of treatment. Her day 15 treatment with that cycle was not administered. She continued treatment with cycle 18 day 1 on 10/01/2016. On 10/06/2016 she was admitted to the hospital with pneumonia. CT pulmonary angiogram at that time showed no evidence of pulmonary emboli. There were widespread tree-in-bud pulmonary parenchymal nodularities and there was evidence of underlying chronic emphysema. There was new hilar or mediastinal lymphadenopathy noted, possibly reactive or neoplastic. Also noted was a superior segment left lower lobe pulmonary nodule measuring 8.4 mm. She did improve on antibiotic therapy, and she was discharged home on 10/10/2016. She had quit smoking just prior to the hospitalization. She did not receive day 15 treatment with that cycle. During subsequent follow-up, I opted to keep her chemotherapy on hold, as her disease had been very stable. Restaging CT scans of the chest, abdomen, and pelvis on 04/28/2017 showed resolved hilar and mediastinal adenopathy and resolved left lower lobe pulmonary nodule. There was stable appearance of the ileocolic anastomosis. There was no evidence of disease progression. Restaging CT scans of the chest, abdomen, and pelvis on 11/16/2018 showed unchanged medial middle lobe parenchymal opacity measuring 8-9 mm. Lingular and anterior left lower lobe subsegmental atelectasis and/or scarring also appeared unchanged. There was no evidence of disease progression in the chest, abdomen, or pelvis. In February 2019 she had presented with new onset of swelling in the right leg. Venous Doppler of the right leg on 03/09/2019 showed partially occlusive deep vein thrombosis of the superficial femoral vein with thrombus noted to extend into the greater saphenous vein. She began on anticoagulation with apixaban. Restaging CT scans on 03/22/2019 showed stable 8-9 mm pulmonary nodule in the right middle lobe. Right hilar and infrahilar hilar lymph nodes also appeared stable. Moderate right hydronephrosis with right ureterectasis appeared to be new. Slightly prominent right inguinal lymph nodes appeared unchanged. Overall, there was no evidence of disease progression in the chest, abdomen, or pelvis. She continued on observation/expectant management. Her other medical illnesses include hypertension, hypercholesterolemia and gastroesophageal reflux disease. She also has chronic obstructive pulmonary disease and she had a pretty severe episode of pneumonia in December 2008. She had stopped smoking following her hospitalization in September. 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 Other surgeries have been limited to tonsillectomy and tubal ligation. INTERIM HISTORY: In April 2019 a next generation sequencing study was performed on the specimen from her surgical resection in October 2012. It showed presence of a BRCA1 mutation, presumed to be somatic, as her original germline BRCA testing was negative. There were no other actionable mutations identified. Repeat CT abdomen/pelvis on 06/22/2019 showed enlarging soft tissue mass in the right side of the pelvis measuring 3.5 cm. This was noted to be in the area of surgical clips from her prior hysterectomy, and the appearance was felt to be consistent with local recurrence or metastatic adenopathy. The mass was noted to be adjacent to and possibly invading the psoas muscle. There was increasing hydronephrosis of the right kidney. She was referred to Dr. David. On 07/18/2019 she underwent exploratory laparotomy with extensive adhesive lysis and extensive retroperitoneal exploration and debulking of right pelvic/psoas muscle tumor. The tumor was noted to obstruct the right ureter, and the procedure included placement of a right ureteral stent. Pathology showed high-grade carcinoma which was PAX-8 and WT-1 positive. During follow-up she had ongoing problems with urinary tract infection and she continued to have significant pain in the right groin area and lower abdomen. Her repeat CT abdomen/pelvis on 12/12/2019 showed progression of a right pelvic mass compared to the June 2019 study. At that point it measured 5.8 x 3.8 x 6.5 cm and it was noted to encase the right ureter. It was inseparable from the distal small bowel loops and it was noted to abut the right L5-S1 disc space. There was interval placement of right ureteral stent with resolution of right hydronephrosis. With those findings and with the known BRCA mutation, she began a trial of therapy with olaparib 300 mg bid on 12/18/2019. As of her follow-up visit on 02/21/2020 she was still having significant pain in the right lower quadrant area and she also was reporting increased nausea and fatigue. There had been a significant decline in her CA 125 level. I had suspect that at least some of her symptoms were treatment related. She continued the olaparib, but with the dosage reduced to 200 mg twice daily. Subsequent to that visit she had 2 hospitalizations at [facility], only by 4 or 5 days. On both occasions she had bowel obstruction which was relieved with conservative management. I had seen her for a follow-up visit on 03/21/2020. She was beginning to feel better. There was further decline in the CA 125 level to 6.7 U/mL compared to 32.8 U/mL on 12/26/2019. Restaging CT of the abdomen/pelvis on 05/22/2020 showed resolution of the previously described right lower quadrant pelvic mass. A right double-J ureteral stent was noted to be in place. There was right renal cortical atrophy. There was no hydronephrosis. There was no adenopathy noted in the abdomen or pelvis. There was moderate constipation. She continued the olaparib at 200 [address] scans on 11/07/2020 showed new subsegmental atelectasis in the lingula and left lower lobe, but no change in an 8 mm right middle lobe pulmonary nodule or and a 9 mm right hilar lymph node. There was possible tumor recurrence noted in the right pelvis with a slightly lobulated soft tissue nodule measuring 2.4 cm adjacent to the ureteral stent and with possible invasion into the right psoas muscle. There were no other findings suspicious for disease progression. She is seen for a scheduled visit. She has not been feeling very good. She comes in today with her room air oxygen saturation low at 87%, and she says that it does run low sometimes at home. She does have oxygen available which he uses at night but otherwise only as needed. She has very limited activity. ECOG score is 2. She says she is forcing herself to eat. Her weight is down a few more pounds. She does not have fever. She sometimes has hot flashes/sweating. She has sinus drainage and she has some chest congestion with cough productive of yellow or green sputum. She does not complain of nausea. Her acid reflux is adequately managed with Nexium. She has ongoing problems with constipation, and she has pain in the lower abdominal area. Bladder function has been okay. She has back pain, and she has chronic neuropathy pain in her legs and feet. Medications: Ativan 1 mg (of 1 mg) Tablet Oral at bedtime PRN, Duragesic-100 2 Patch(es) (of 100 mcg) Patch 72 Hr Transdermal q 3 days, Enalapril Maleate 1 (20 mg) Tablet Oral b.i.d., Lactulose Solution Oral PRN, Levothroid 1 (50 mcg) Tablet Oral daily, Lyrica 1 Capsule (of 75 mg) Oral b.i.d., Magnesium 1 Capsule Oral daily, MiraLax Pack Oral daily, Mucinex Maximum Strength 1 Tablet (of 1200 mg) Tablet SR 12 HR Oral b.i.d. PRN, NexIUM 1 (40 mg) Capsule Delayed Release Oral b.i.d., Norvasc 1 Tablet (of 5 mg) Oral daily, OxyCODONE HCl 1 (20 mg) Tablet Oral q 4 hours PRN, Potassium 1 Tablet (of 100 mg) Oral daily, Proventil HFA Aerosol, solution Inhalation PRN, Soma 1 (350 mg) Tablet Oral t.i.d., TRAZADONE 1 (100 mg) Tablet Oral at bedtime, Venlafaxine HCl 1 (150 mg) Capsule SR 24 HR Oral daily, Xarelto 1 Tablet (of 10 mg) Oral daily, Zofran 1 Tablet (of 4 mg) Oral q 4 hours Allergies: Carboplatin Vital Signs: Performed on Nov 07, 2020 12:58 Height - 67.00 in O2 Sat - 93 % (LOW) Performed on Nov 07, 2020 12:55 Height - 67.00 in Weight - 124.2 lbs (HIGH) BSA - 1.65 sq.m BMI - 19.45 Temperature - 97.8 F (LOW) Pulse - 86 /min Respiration - 16 /min BP - 173/96 mm(hg) (HIGH) O2 Sat - 84 % (LOW) Pain - 7 Physical Examination: Constitutional - She appears generally weak and chronically ill, Eyes - Sclerae nonicteric. Conjunctivae clear, ENMT - No lesions noted in the oral cavity, Hematologic/Lymphatic - No cervical, clavicular, or axillary adenopathy, Respiratory - Lungs show diminished air movement bilaterally, Cardiovascular - Heart rhythm is regular. There is no murmur, gallop, or rub noted, Abdomen - Soft. There is tenderness in the lower abdominal area. Liver and spleen are not enlarged. There is no abdominal mass noted and there is no obvious ascites. There is no inguinal adenopathy, Extremities - No edema, Neurologic - No focal neurologic deficits noted. Lab/Imaging: Test performed on Nov 07, 2020 09:38 Sodium 132 mmol/L Potassium 4.4 mmol/L Chloride 92 mmol/L CO2 33 mmol/L Anion Gap 11.4 BUN 8 mg/dL Creatinine 0.6 mg/dL Cr Clearance (Est) 86.46 mL/min eGFR 101.3 mL/min Glucose 74 mg/dL Osmolality - Calculated 271 mOsm/kg Calcium 9.1 mg/dL Protein, Total 7.1 g/dL Albumin 4.4 g/dL Globulin 2.7 g/dL Bilirubin, Total 0.5 mg/dL ALT (SGPT) 10 U/L AST (SGOT) 17 U/L Alkaline Phosphatase 86 IU/L WBC 4.1 10 3/uL RBC 4.48 10 6/uL HGB 14.5 g/dL HCT 43.0 % MCV 96.0 fL MCH 32.4 pg MCHC 33.7 g/dL RDW 16.0 % Platelet Count 125 10 3/cmm MPV 9.6 fL Neutrophils 2.75 10 3/uL Lymphocytes 0.9 10 3/uL Monocytes 0.4 10 3/uL Eosinophils 0.1 10 3/uL Basophils 0.0 10 3/uL Neutrophil % 66.8 % Lymphocyte % 21.1 % Monocyte % 9.5 % Eosinophil % 1.7 % Basophils % 0.7 % NRBC % 0 % CA-125 8.9 U/mL Problem List: 1. Recurrent ovarian cancer. By next generation sequencing her tumor was noted to harbor a BRCA1 mutation, presumed somatic, as her original testing for germline BRCA was negative. Her tumor also was tested and found to be MSI stable with intact mismatch repair proteins. 2. She had optimal debulking following initial diagnosis in May 2003, and she received adjuvant chemotherapy with 6 cycles of carboplatin/paclitaxel. 3. She had further treatment with 4 cycles of carboplatin/paclitaxel in combination with Avastin following documented recurrence in July 2008. 4. She had restarted chemotherapy with carboplatin/gemcitabine in February 2013 following a surgical debulking procedure for disease progression with associated bowel obstruction. Her treatment was subsequently modified to single agent gemcitabine as a result of a hypersensitivity reaction to carboplatin. She had some response to the chemotherapy. As of January 2014 her disease was felt to be stable, and she was then observed off treatment. 5.. In May 2015 she restarted chemotherapy with weekly paclitaxel. Following her cycle 18 treatment on 09/17/2016 she had another hospital admission for pneumonia. As her disease had been stable and her performance status had been declining, her chemotherapy at that point was put on hold. 6. In December 2019 she began further treatment with olaparib after she was confirmed to have disease progression in the right pelvis with associated right hydronephrosis. Her other medical illnesses include: 7. Hypertension. 8. Hyperlipidemia. 9. GERD. 10. COPD. 11. Degenerative disease of the spine with chronic back pain. 12. Chronic anxiety/depression. Problems Addressed with this Encounter and Plan: 1. Recurrent ovarian cancer. In November 2019 she had evidence of disease progression with CT evidence of right pelvic mass with ureteral obstruction and hydronephrosis, requiring placement of right ureteral stent. In December 2019 she began a trial of therapy with olaparib, initially at 300 mg twice daily. She did show a very good response by follow-up CT scan and by CA-125 level, but she subsequently did require a dose reduction to 200 mg twice daily. During follow-up she has continued to have very marginal performance status, though it is uncertain to what extent that may be related to the ovarian cancer, to her treatment, or to other medical illnesses, particularly her underlying COPD. At this point her CA-125 level remains stable. Her CT scan today showed findings suspicious for developing recurrence in the right pelvis. At least for now she will continue treatment with olaparib 200 mg twice daily. She will require close monitoring for disease progression, though her further treatment options will be limited. I will tentatively plan a follow-up visit in 1 month. 2. 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 She continues to have significant pain despite being on opiate pain medication at significant dosages. She also has been taking Lyrica 150 mg twice daily. I will give her the option to try increasing to 3 times a day. 3. She has severe underlying COPD. She is having symptoms suspicious for bronchitis/COPD exacerbation. She will be given empiric antibiotic therapy with Levaquin 500 mg daily for 7 days. Signed By: Ravi Lynne M.D. <<Signature on File>>
== END 2020-11-07 09:15 | disposition home or self-care (01) ==
PROVIDERS: Internal Medicine Medical Oncology; Visit Provider Nurse Practitioner
DX: C56.1 Malignant neoplasm of right ovary (principal); C79.89 Secondary malignant neoplasm of other specified sites; J44.9 Chronic obstructive pulmonary disease, unspecified; R93.5 Abnormal findings on diagnostic imaging of other abdominal regions, including retroperitoneum; J98.11 Atelectasis; K59.00 Constipation, unspecified; G62.0 Drug-induced polyneuropathy; T45.1X5D Adverse effect of antineoplastic and immunosuppressive drugs, subsequent encounter; Z92.21 Personal history of antineoplastic chemotherapy; Z79.899 Other long term (current) drug therapy
CPT/HCPCS: 36591; 71260; 74177; 80053; 85025; 86304; 99214; Q9967

== ENCOUNTER 2020-12-10 00:18 | Emergency (ER) | payer MEDICARE, OTHER, SELFPAY ==
[2020-12-10] VITALS (11 sets, daily range): BP systolic 173–200; BP diastolic 91–102; PULSE 82–87; RESP 18–22; TEMP 36.4; O2SAT 85–99; BMI 19.3
--- NOTE | 2020-12-10 00:30 | ECG_ITS ---
[facility] Test Date: 2020-12-10 Pat Name: Nisreen Carrasco Department: Room: Gender: Female Manager Channel: : 1960 Requested By: Sara Hook Order Number: [id number] Franco MD: Berna Muniz M.D. Measurements Intervals [place] Rate: 72 P: 72 CT: 165 QRS: 67 QRSD: 97 T: 69 QT: 393 QTc: 430 Interpretive Statements SINUS RHYTHM Compared to ECG 10/06/2016 20:19:10 No significant changes Electronically Signed On 12-10-2020 6:05:20 [employer] DIVER by Berna Muniz M.D. [id number]
--- NOTE | 2020-12-10 00:30 | XRR_ITS ---
PROCEDURE INFORMATION: Exam: XR Abdomen, 2 Views Exam date and time: 12/10/2020 12:30 AM Age: 60 years old Clinical indication: Abdominal pain; Generalized; Prior surgery; Additional info: Abd pain TECHNIQUE: Imaging protocol: XR of the abdomen. Views: 2 Views. COMPARISON: CT chest abd pel w con* 11/07/2020 11:40 AM FINDINGS: Tubes, catheters and devices: Tip of the right infusion port still at the cavoatrial junction. No significant change in the right ureteral stent. Continued surgical clips over the lower lumbar region and in the pelvic sidewalls. Heart/Mediastinum: Still no cardiomegaly. Lungs: Continued prominent lung volumes. Oblique and horizontal linear densities over the left middle to lower lung again evident suggesting atelectasis and/or scar. Still no consolidation. Pleural space: Stable minimal blunting of the left lateral angle and slight thickening of the lateral left pleural space consistent with scarring, especially considering the lack of left pleural fluid on the recent CT. Still no apparent right pleural fluid. No pneumothorax. Gastrointestinal tract: Relatively gasless abdomen with no evidence of bowel dilatation. Intraperitoneal space: No free air. Vasculature: Continued aortic elongation. Bones/joints: Lower lumbar degenerative disc disease still likely. No apparent acute bony disease. Other findings: No hepatosplenomegaly. XR/XR acute abdomen series [id number] IMPRESSION: 1. No apparent acute abdominal disease. No significant change in the right ureteral stent. Prior abdominal surgery again evident. 2. Tip of the right infusion port still at the cavoatrial junction. 3. Chronic lung and pleural findings and other abnormalities detailed above.
--- NOTE | 2020-12-10 00:33 | W.ED.ABDPA2 ---
HPI - Abdominal Pain General: Chief Complaint: Abdominal Pain Stated Complaint: ab pain Time Seen by Provider: 12/10/20 00:23 Source: patient Mode of arrival: ambulatory Limitations: no limitations History of Present Illness: HPI narrative: 60-year-old female patient presents to the emergency department with acute onset of abdominal pain around 7 PM last evening, 12/09/2020. She has history of severe constipation. She describes pain she is experiencing as constipation. She reports nausea, denies vomiting, was able to eat a normal meal last evening. She states positive flatulence, reports bowel movements are hard, difficult to pass. She is chronically on oxygen supplement at home. She denies fever chills. States took milk of magnesia earlier this evening and produced a large bowel movement, she reports took an injection to help with constipation. History of ovarian cancer with several rounds of chemotherapy. Recent CT abdomen and pelvis 11/07/2020 revealed possible tumor recurrence in the right pelvis, she remains with ureteral stent on the right. MD elicited complaint: abdominal pain Pertinent past history: constipation Onset (ago): hour(s) (5) Pain Consistency: constant Location: Diffuse Severity: moderate Quality: cramping and sharp Radiation: epigastric and suprapubic Associated Symptoms: Reports bloating, change in bowel habits, change in stool character (small), constipation, nausea and other (difficulty urinating); Denies chills, diarrhea, dysuria, fever(s), hematemesis, melena and vomiting Related Data: Date of Last Menstrual Period: 12/01/19 Review of Systems General: Reports: 10 or more systems reviewed and unremarkable except in HPI and below Const: Denies: fever(s), chills or diaphoresis Eyes: Denies: blurry vision or eye redness ENMT: Denies: throat pain, dental pain or disequilibrium Card: Denies: chest pain, palpitations or irregular heart rhythm Resp: Denies: dyspnea, productive cough, non-productive cough, wheezing or chest congestion GI: Reports: abdominal pain, nausea, constipation, bloating, change in bowel habits and change in stool character (small); Denies: vomiting, hematemesis, diarrhea or melena : Denies: difficulty voiding or dysuria Musc: Denies: back pain Skin/Breast: Denies: rash or pruritus Neuro: Denies: headache(s), weakness in extremities or behavioral changes Psych: Denies: anxiety or depression Kashif/Lymph: Denies: easy bruising PFSH ED PFSH: Medical History (Updated 12/10/20 @ 02:48 by MARCIN Ruiz) Extrinsic ureteral obstruction Hydronephrosis, right Ovarian cancer on right Pelvic pain in female Recurrent UTI Secondary malignant neoplasm of other specified sites Surgical History History of hysterectomy with bilateral oophorectomy History of right hemicolectomy Family History Mother , at age 59 Cancer breast Myocardial infarction (lateral wall) Father Cancer prostate cancer Pacemaker Other CAD (coronary artery disease) Hypertension Social History Smoking and tobacco status: current every day smoker Alcohol intake: never Adopted: No Caregiver/support person: No Lives independently: No Household members: spouse Marital status: Current occupational status: disabled History of recent travel: No Female Reproductive History: Date of last menstrual period: 12/01/19 Physical Exam Const: COMMON NORMALS: no acute distress, patient oriented x3 and alert GENERAL APPEARANCE: cooperative, well kempt and frail appearing; not comfortable NUTRITIONAL APPEARANCE: thin ORIENTATION/CONSCIOUSNESS: Yes awake, Yes oriented to person, Yes oriented to place and Yes oriented to time HENMT: COMMON NORMALS: normocephalic, atraumatic, external ears normal, Normal external nose present and moist oral mucous membranes HEAD & SCALP: normal to inspection, normocephalic and atraumatic FACE & SINUS: normal facial exam and face symmetric NOSE: Normal external nose present EXTERNAL EAR: Yes external ears normal MOUTH: moist mucous membranes abnormal (dry) Eye: COMMON NORMALS: Equal, round and reactive pupils present and EOMs intact bilaterally GENERAL EYE: appearance normal, both eyes and all related structures PUPIL: Yes Equal, round and reactive pupils present Neck/C-Spine: COMMON NORMALS: full ROM and no lymphadenopathy GENERAL: Yes normal visual inspection and Yes trachea midline CERVICAL SPINE: Yes cervical ROM normal Lymph: LYMPHATIC: no lymphadenopathy noted Chest: COMMONS NORMALS: normal inspection of the chest and normal palpation of entire chest wall Resp: COMMON NORMALS: normal respiratory effort and clear to auscultation bilaterally EFFORT & INSPECTION: Yes able to speak in complete sentences, Yes symmetric chest movement and Yes labored (due to abdominal pain) AUSCULTATION: clear to auscultation bilaterally, diminished lung sounds bilateral and rub present Cardio: COMMON NORMALS: regular rate, regular rhythm, S1 normal heart sound present, S2 normal heart sound present and Peripheral pulses 2+ throughout RATE: regular rate RHYTHM: regular rhythm HEART SOUNDS: S1 normal heart sound present and S2 normal heart sound present PERIPHERAL PULSES: Peripheral pulses 2+ throughout GI: INSPECTION: Yes normal to inspection, No abdominal wall ecchymosis, No Abdominal wall edema, Yes abdominal distension, No central obesity and No visible herniation AUSCULTATION: Yes Hypoactive bowel sounds present PALPATION: Yes Tenderness to palpation present (GI) Details: other (diffuse), No Pulsatile mass present, No Ascites present and No Abdominal wall crepitus present : COMMON NORMALS: Yes no CVA tenderness BLADDER/KIDNEY EXAM: Yes no CVA tenderness Back/Pelvis: COMMON NORMALS: no CVA tenderness and thoracic and lumbar spine normal to inspection Extremity: COMMON NORMALS: normal to inspection, capillary refill normal, no clubbing, cyanosis or edema and no pedal edema GENERAL: Yes normal exam except as noted Neuro: COMMON NORMALS: patient oriented x3 and no focal motor deficits SENSORIUM/ORIENTATION: Yes alert, Yes oriented to person, Yes oriented to place and Yes oriented to time Psych: COMMON NORMALS: mental status grossly normal, Normal thought process present and cooperative APPEARANCE: Yes well kempt ACTIVITY/MOTOR BEHAVIOR: Yes appropriate eye contact THOUGHT PROCESS: Normal thought process present Skin: COMMON NORMALS: no rashes or lesions noted and no wounds GENERAL SKIN EXAM: no rashes or lesions noted and dry skin Course Vital Signs: Vital signs: Vital Signs Temperature 97.5 F L 12/10/20 00:25 Pulse Rate 82 12/10/20 01:55 Respiratory Rate 18 12/10/20 02:52 Blood Pressure 190/93 12/10/20 02:52 Pulse Oximetry 92 12/10/20 01:55 MDM - Abdominal Pain MDM Narrative: Medical decision making narrative: 60-year-old female patient presents to the emergency department with acute onset of abdominal pain. She has history of bowel obstructions, possible recurrence of ovarian cancer on recent CT completed 11/07/2020; serology testing today without acute findings, CT scan revealed moderate dilatation of some of the small bowel but no dilatation of other small bowel loops indicating possible small bowel obstruction. No free air appreciated. She was able to tolerate p.o. fluids here in the ED after administration of Zofran and Reglan. Nausea resolved. She has not exhibited vomiting. She reports home prescription of oxycodone provided more relief than morphine provided tonight. She is requesting to go home and does not wish to receive NG tube or be hospitalized. Vital signs remained stable during her stay. CT scan reviewed with Dr. Choi, recommendation for patient to engage in clear liquid diet and to return to the emergency department if worsening symptoms occur. Urinary tract infection appreciated on cath UA. She will be placed on Omnicef x5 days. She reports chronic UTIs with use of Macrodantin but has been several months since last dose. Patient was able to produce bowel movement here in the ED. Differential Diagnosis: Differential diagnosis abdominal pain: Likely acute appendicitis, calculus of kidney, constipation and small bowel obstruction Lab Data: Labs: Lab Results 12/10/20 12/10/20 12/10/20 Range/Units 00:26 00:26 02:00 WBC 12.1 H (4.0-10.0) 10^3/ uL RBC 5.29 (4.1-5.3) 10^6/u L Hgb 17.2 H (11.5-15.3) g/dL Hct 51.1 H (37.0-47.0) % MCV 96.6 (81-99) fL MCH 32.5 (28.0-34.0) pg MCHC 33.7 (30.0-36.0) g/dL RDW 14.4 (12.1-15.1) % Plt Count 144 (130-400) 10^3/c mm MPV 10.2 (7.4-10.4) fL Neut % (Auto) 86.1 % Lymph % (Auto) 8.8 % [place] % (Auto) 3.6 % Eos % (Auto) 0.7 % Baso % (Auto) 0.6 % Neut # (Auto) 10.43 H (1.8-7.7) 10^3/u L Lymph # (Auto) 1.1 (0.8-4.8) 10^3/u L [place] # (Auto) 0.4 (0.2-0.9) 10^3/u L Eos # (Auto) 0.1 (0.0-0.8) 10^3/u L Baso # (Auto) 0.1 (0.0-0.1) 10^3/u L Nucleated RBC % (a uto) 0 % Nucleated RBCs # 0.0 /100WBC Sodium 135 L (136-145) mmol/L Potassium 4.2 (3.5-5.1) mmol/L Chloride 91 L (98-107) mmol/L Carbon Dioxide 36 H (22-29) mmol/L Anion Gap 12.2 (5-19) BUN 9 (8-23) mg/dL Creatinine 0.8 (0.5-0.9) mg/dL GFR Calculation 72.7 L (90-130) mL/min Glucose 140 H (65-115) mg/dL Calculated Osmolal ity 281 L (285-295) mOsm/k g Calcium 10.4 (8.5-10.5) mg/dL Total Bilirubin 0.5 (0.15-1.2) mg/dL AST 16 (0-32) U/L ALT 9 (0-33) U/L Alkaline Phosphata se 90 (35-105) IU/L Total Protein 8.1 (6.6-8.7) g/dL Albumin 4.9 (3.5-5.2) g/dL Globulin 3.2 (1.3-4.6) g/dL Lipase 68 H (13-60) U/L Urine Color Yellow (Yellow) Urine Appearance Cloudy (CLEAR) Urine pH 8 H (5-7) Ur Specific Gravit y 1.010 (1.005-1.030) Urine Protein Neg (Negative) Urine Glucose (UA) Norm (Normal) Urine Ketones Negative (Negative) Urine Blood 2+ H (Negative) Urine Nitrate Negative (Negative) Urine Bilirubin Neg (Negative) Prot Sulfosalicyli c Acd Positive (Negative) Urine Urobilinogen Norm (Negative) mg/dL Ur Leukocyte Genesis ase Trace H (Negative) Urine RBC 5-10 H (0-2) /hpf Urine WBC 10-15 H (0-5) /hpf Ur Squamous Epith Cells 0-4 H (0-5) /hpf Amorphous Sediment 2+ /hpf Urine Bacteria 1+ H (NONE) /hpf Imaging Data ^: CT Abd/Pel: Radiologist's impression: [address] [place] [address] CT Scan Report Signed Patient: Nisreen Carrasco V Unit #: [id number] : 1960 Age/Sex: 60 / F ADM Date: 12/10/20 Loc: ER Room/Bed: Attending Dr: Ordering Provider/Ordering MD: Sara Moss Date of Service: 12/10/20 Procedure(s): CT abdomen pelvis w con* [id number] Accession Number(s): [id number] Report Number: [id number] PROCEDURE INFORMATION: Exam: CT Abdomen And Pelvis With Contrast Exam date and time: 12/10/2020 1:27 AM Age: 60 years old Clinical indication: Abdominal pain; Generalized; Prior surgery; Additional info: Abd pain h/o bowel obstruction TECHNIQUE: Imaging protocol: Computed tomography of the abdomen and pelvis with contrast. Radiation optimization: All CT scans at this facility use at least one of these dose optimization techniques: automated exposure control; mA and/or kV adjustment per patient size (includes targeted exams where dose is matched to clinical indication); or iterative reconstruction. Contrast material: OMNI 300; Contrast volume: 95 ml; Contrast route: INTRAVENOUS (IV); COMPARISON: CT chest abd pel w con* 11/07/2020 11:40 AM RADIATION DOSE METRICS: Total DLP (mGy-cm): 330.64 FINDINGS: Pleural spaces: Stable slight pleural-based stranding in the lateral left lung base suggesting scar. Liver: Unremarkable liver. Gallbladder and bile ducts: No calcified gallstones or biliary ductal dilatation. Pancreas: No apparent interval pancreatic disease. Spleen: Still no splenomegaly. Adrenal glands: No adrenal mass. Kidneys and ureters: Continued atrophic right kidney; interval worsening of the mild right hydronephrosis despite continued positioning of the proximal pigtail of the right ureteral stent in the right renal pelvis and the positioning of the distal pigtail in the anterior bladder. Stomach and bowel: Interval prominent fluid distension of the stomach and moderate dilatation of multiple small bowel loops. Questionable slight thickening of the cosme of some of the nondilated right abdominal small bowel loops. No obvious transitional zone. Ileocolic anastomosis still likely in the mid abdomen. No significant fluid or feces in the colon. Appendix: Continued probable surgical absence. Intraperitoneal space: Still no free air. Interval mild free fluid. Vasculature: Continued atherosclerosis. Continued slight ectasia of the infrarenal abdominal aorta, but still no aortic aneurysm. Continued surgical clips along the distal aorta and in both pelvic sidewalls. Lymph nodes: No interval enlarged nodes. Urinary bladder: No obvious disease of the nondistended bladder. Reproductive: Hysterectomy again evident. Bones/joints: Thirteen ribs bilaterally and 4 lumbar vertebral bodies evident on the prior studies. Old compression fractures again evident. Continued degeneration of several discs. Continued slight retrolisthesis at L4-S1 and minimal spondylolisthesis at L3-L4. Degeneration of the L3-L4 interspinous space still present. Soft tissues: Right buttock injection granulomatous calcification. Small area of gas in the subcutaneous fat of the right mid abdominal wall and midline scar in the lower anterior abdominal wall. CT/CT abdomen pelvis w con* [id number] IMPRESSION: 1. Interval moderate dilatation of some of the small bowel, but no dilatation of other small bowel loops indicating a possible small-bowel obstruction. No obvious transitional zone and no free air. Interval mild free fluid and questionable slight thickening of the cosme of some of the nondilated right abdominal small bowel loops, exact significance unclear. Ileocolic anastomosis still likely. 2. Continued atrophic right kidney, but interval worsening of the mild right hydronephrosis despite continued good positioning of the right ureteral stent. 3. Slight scar in the left lung base still likely. Other findings detailed above. Radiation Dose CTDIVOL = (mGy): DLP = 330.64 (mGy-cm) Dictated By: Geri Burton MD Signed By: Geri Burton MD Signed Date/Time: 12/10/20228 DD/ 6 EKG Data ^: EKG 1: EKG interpretation date: 12/10/20 EKG interpretation time: 00:50 Other EKG comments: Ventricular rate 72, sinus rhythm, normal ECG Discharge Plan Discharge Patient Disposition: Home Clinical Impression: Ileus Abdominal pain Qualifiers: Abdominal location: generalized Qualified Code(s): R10.84 - Generalized abdominal pain UTI (urinary tract infection) Qualifiers: Urinary tract infection type: acute cystitis Hematuria presence: without hematuria Qualified Code(s): N30.00 - Acute cystitis without hematuria Condition: Stable Prescriptions: New cefdinir 300 mg capsule 300 mg PO BID 5 Days Qty: 10 RF: 0 Reglan 10 mg tablet 10 mg PO QID 7 Days Qty: 28 RF: 0 No Action enalapril maleate 10 mg tablet 10 mg PO BID RF: 0 esomeprazole magnesium [Nexium] 40 mg capsule,delayed release(DR/EC) 40 mg PO BID RF: 0 carisoprodol 350 mg tablet 350 mg PO TID RF: 0 oxycodone 20 mg tablet 20 mg PO Q6H PRN (Reason: Pain) RF: 0 venlafaxine [Effexor XR] 150 mg capsule,extended release 24hr 150 mg PO DAILY RF: 0 levothyroxine [Synthroid] 50 mcg tablet 50 mcg PO DAILY RF: 0 albuterol sulfate 90 mcg/actuation aerosol powdr breath activated 2 inh INHALATION Q6H PRN (Reason: Exercise Induced Bronchospasm) RF: 0 guaifenesin [Mucinex] 600 mg tablet extended release 12hr 600 mg PO Q12H PRN (Reason: Congestion) RF: 0 Xarelto 20 mg tablet 20 mg PO DAILY RF: 0 biotin 1,000 mcg tablet,chewable 1,000 mcg PO DAILY RF: 0 magnesium oxide 500 mg capsule 500 mg PO DAILY RF: 0 potassium gluconate 595 mg (99 mg) tablet 595 mg PO DAILY RF: 0 pregabalin [Lyrica] 150 mg capsule 150 mg PO DAILY RF: 0 nitrofurantoin monohyd/m-cryst [Macrobid] 100 mg capsule 100 mg PO .prn RF: 0 trazodone 150 mg Tablet 150 mg PO BEDTIME RF: 0 fentanyl 100 mcg/hr patch 72 hour 1 patch topical Q72H RF: 0 amlodipine 5 mg tablet 5 mg PO PRN PRN (Reason: Hypertension) RF: 0 multivitamin Capsule 1 cap PO DAILY RF: 0 Discharge Orders: Discharge ED (Routine); Ordered 12/10/20 Ordered By: Sara Moss Discharge Diet: Clear Liquid Discharge Activity: Limit activity as instructed Patient Instructions: Urinary Tract Infection in Women (ED), Abdominal Pain (ED), Ileus (ED), Opioid Safety Activity Restrictions/Additional Instructions: Take antibiotics until all gone, even if better Return to the emergency department if you develop increased abdominal pain, vomiting or other concerning symptoms Continue laxatives as needed for constipation, clear liquid diet x48 hours, follow-up with your primary care in 2 to 3 days to ensure you are improving Coding Level of Care Code ED Luggage Liner for Chg Fwd Exam Comprehensive
[2020-12-10 00:38] LABS: Basophils # 0.1 10^3/uL (0.0-0.1); Basophils % 0.6 %; Eosinophils # 0.1 10^3/uL (0.0-0.8); Eosinophils % 0.7 %; Hematocrit 51.1 % (37.0-47.0); Hemoglobin 17.2 g/dL (11.5-15.3); Lymphocytes # 1.1 10^3/uL (0.8-4.8); Lymphocytes % 8.8 %; Mean Corpuscular HGB Conc 33.7 g/dL (30.0-36.0); Mean Corpuscular Hemoglobin 32.5 pg (28.0-34.0); Mean Corpuscular Volume 96.6 fL (81-99); Mean Platelet Volume 10.2 fL (7.4-10.4); Monocytes # 0.4 10^3/uL (0.2-0.9); Monocytes % 3.6 %; Neutrophils # 10.43 10^3/uL (1.8-7.7); Neutrophils % 86.1 %; Nucleated Red Blood Cells % 0 %; Platelet Count 144 10^3/cmm (130-400); Red Blood Count 5.29 10^6/uL (4.1-5.3); Red Cell Distribution Width 14.4 % (12.1-15.1); White Blood Count 12.1 10^3/uL (4.0-10.0)
[2020-12-10] MEDS: ondansetron 2 mg/ML SDV 2 mL 4 MG IVP (00:38)
[2020-12-10] MEDS: metoclopramide 5 mg/mL SDV 2 mL 10 MG IVP (00:38)
[2020-12-10] MEDS: morphine 4 mg/mL SDV 1 mL IVP ×2 (00:39→01:52)
[2020-12-10] MEDS: lactated ringers 1,000 ML 200 ML IV (00:40)
[2020-12-10 00:56] LABS: Alanine Aminotransferase 9 U/L (0-33); Albumin Level 4.9 g/dL (3.5-5.2); Alkaline Phosphatase 90 IU/L (35-105); Anion Gap 12.2 (5-19); Aspartate Amino Transferase 16 U/L (0-32); Blood Urea Nitrogen 9 mg/dL (8-23); Calcium 10.4 mg/dL (8.5-10.5); Carbon Dioxide 36 mmol/L (22-29); Chloride 91 mmol/L (98-107); Globulin 3.2 g/dL (1.3-4.6); Glomerular Filtration Rate 72.7 mL/min (90-130); Glucose 140 mg/dL (65-115); Lipase 68 U/L (13-60); Osmolality Calculated 281 mOsm/kg (285-295); Potassium 4.2 mmol/L (3.5-5.1); Sodium 135 mmol/L (136-145); Total Bilirubin 0.5 mg/dL (0.15-1.2); Total Protein 8.1 g/dL (6.6-8.7)
--- NOTE | 2020-12-10 01:06 | CTR_ITS ---
PROCEDURE INFORMATION: Exam: CT Abdomen And Pelvis With Contrast Exam date and time: 12/10/2020 1:27 AM Age: 60 years old Clinical indication: Abdominal pain; Generalized; Prior surgery; Additional info: Abd pain h/o bowel obstruction TECHNIQUE: Imaging protocol: Computed tomography of the abdomen and pelvis with contrast. Radiation optimization: All CT scans at this facility use at least one of these dose optimization techniques: automated exposure control; mA and/or kV adjustment per patient size (includes targeted exams where dose is matched to clinical indication); or iterative reconstruction. Contrast material: OMNI 300; Contrast volume: 95 ml; Contrast route: INTRAVENOUS (IV); COMPARISON: CT chest abd pel w con* 11/07/2020 11:40 AM RADIATION DOSE METRICS: Total DLP (mGy-cm): 330.64 FINDINGS: Pleural spaces: Stable slight pleural-based stranding in the lateral left lung base suggesting scar. Liver: Unremarkable liver. Gallbladder and bile ducts: No calcified gallstones or biliary ductal dilatation. Pancreas: No apparent interval pancreatic disease. Spleen: Still no splenomegaly. Adrenal glands: No adrenal mass. Kidneys and ureters: Continued atrophic right kidney; interval worsening of the mild right hydronephrosis despite continued positioning of the proximal pigtail of the right ureteral stent in the right renal pelvis and the positioning of the distal pigtail in the anterior bladder. Stomach and bowel: Interval prominent fluid distension of the stomach and moderate dilatation of multiple small bowel loops. Questionable slight thickening of the cosme of some of the nondilated right abdominal small bowel loops. No obvious transitional zone. Ileocolic anastomosis still likely in the mid abdomen. No significant fluid or feces in the colon. Appendix: Continued probable surgical absence. Intraperitoneal space: Still no free air. Interval mild free fluid. Vasculature: Continued atherosclerosis. Continued slight ectasia of the infrarenal abdominal aorta, but still no aortic aneurysm. Continued surgical clips along the distal aorta and in both pelvic sidewalls. Lymph nodes: No interval enlarged nodes. Urinary bladder: No obvious disease of the nondistended bladder. Reproductive: Hysterectomy again evident. Bones/joints: Thirteen ribs bilaterally and 4 lumbar vertebral bodies evident on the prior studies. Old compression fractures again evident. Continued degeneration of several discs. Continued slight retrolisthesis at L4-S1 and minimal spondylolisthesis at L3-L4. Degeneration of the L3-L4 interspinous space still present. Soft tissues: Right buttock injection granulomatous calcification. Small area of gas in the subcutaneous fat of the right mid abdominal wall and midline scar in the lower anterior abdominal wall. CT/CT abdomen pelvis w con* [id number] IMPRESSION: 1. Interval moderate dilatation of some of the small bowel, but no dilatation of other small bowel loops indicating a possible small-bowel obstruction. No obvious transitional zone and no free air. Interval mild free fluid and questionable slight thickening of the cosme of some of the nondilated right abdominal small bowel loops, exact significance unclear. Ileocolic anastomosis still likely. 2. Continued atrophic right kidney, but interval worsening of the mild right hydronephrosis despite continued good positioning of the right ureteral stent. 3. Slight scar in the left lung base still likely. Other findings detailed above. Radiation Dose CTDIVOL = (mGy): DLP = 330.64 (mGy-cm)
[2020-12-10] MEDS: iohexol 300 mg/mL 100 mL Btl IV (01:28)
[2020-12-10 02:12] LABS: Add Urine Microscopic? YES; Bilirubin Urine Neg (Negative); Blood Urine 2+ (Negative); Glucose Urine UA Norm (Normal); Ketones Urine Negative (Negative); Leukocyte Esterase Urine Trace (Negative); Nitrate Urine Negative (Negative); Protein Urine Neg (Negative); Sulfosalicylic Acid Urine Positive (Negative); Urine Appearance Cloudy (CLEAR); Urine Color Yellow (Yellow); Urobilinogen Urine Norm (Negative); pH Urine 8 (5-7)
[2020-12-10 02:18] LABS: Add Urine Culture? No; Amorphous Sediment Urine 2+ /hpf; Bacteria Urine 1+ /hpf; Squamous Epithelial Cell Urine 0-4 /hpf (0-5)
[2020-12-10] MEDS: cefdinir 300 MG CAPSULE PO (03:33)
[2020-12-10] MEDS: oxyCODONE-APAP 5-325 mg Tablet 1 TAB PO (04:01)
== END 2020-12-10 04:17 | disposition home or self-care (01) ==
PROVIDERS: Emergency Provider Nurse Practitioner Family
DX: K56.7 Ileus, unspecified (principal); R10.84 Generalized abdominal pain; N30.00 Acute cystitis without hematuria; Z85.43 Personal history of malignant neoplasm of ovary; Z87.440 Personal history of urinary (tract) infections; F17.210 Nicotine dependence, cigarettes, uncomplicated
CPT/HCPCS: 51701; 74022; 74177; 80053; 81001; 83690; 85025; 93005; 96361; 96374; 96375; 99284; J2270; J2405; J2765; Q9967

== ENCOUNTER 2020-12-12 11:20 | Outpatient (CLI) | payer MEDICARE, OTHER, SELFPAY ==
[2020-12-12 13:38] LABS: CA 125 10.1 U/mL (0-35)
--- NOTE | 2020-12-21 16:32 | ONC FU_ITS ---
[facility] Patient Note Patient: Nisreen Carrasco V Unit #: [id number]: [id number] Dictated By: Daniella JacobsenDate of Visit: Dec 12, 2020 Onc MED Follow-Up/Prog Note Chief Complaint: Ovarian cancer History of Present Illness: Mrs Carrasco is a 60 year-old woman with recurrent ovarian cancer. She had optimal resection with her initial surgery back in May 2003. She had documented recurrence in July 2008, nearly 5 years after completion of adjuvant chemotherapy with 6 cycles of carboplatin/Taxol. She was retreated at that time with carboplatin/Taxol chemotherapy, but in combination with Avastin. Treatment was stopped after 4 cycles because of worsening neuropathy, but she did have a very good clinical response with normalization of the CA-125 level. She was then followed on observation. She did well until July 2012 when she presented with small bowel obstruction. Her Ca-125 level at that point had not increased and the obstruction initially did improve with conservative management. Ultimately, though, she was confirmed to have disease recurrence in the abdomen. She underwent surgery at [facility] in October 2012. At laparotomy there were extensive adhesions in the abdomen, but there was recurrent tumor in the right mid abdomen and right upper quadrant. It was involving the cecum, the mesocolon, and the small bowel mesentery in a multiple twisted mass. There also was periaortic juanita involvement. She underwent right hemicolectomy and primary anastamosis of the bowel with complete resection of the mass. 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 She had gradual recovery from that procedure. In February 2013 she restarted chemotherapy with carboplatin in combination with gemcitabine. She experienced a significant hypersensitivity reaction to the carboplatin with the third cycle of treatment. She then continued chemotherapy with single agent gemcitabine. She experienced significant fatigue and myelosuppression with gemcitabine, even at a reduced dose level. She did not tolerate an attempt at dose escalation. She had some ongoing GI symptoms during this time, but no documented disease progression. She had a followup visit with Dr. David in January 2014. Her disease at that time appeared stable, and it was recommended that she stop chemotherapy again and just go back on observation. By May 2015 she was having significantly more abdominal pain and repeat CT abdomen/pelvis at that point was highly suspicious for recurrent metastatic disease at the site of the ileocolic anastomosis. That study showed no obvious metastatic involvement in the liver and no ascites. In June 2015 she restarted chemotherapy with weekly paclitaxel. She initially was tolerating it pretty well on a day 1/day 8 schedule every 3 weeks. She had presented at day 15 of her third cycle with severe abdominal pain and nausea. Repeat CT scan showed increasing soft tissue at the ileocolic anastomosis. There was a large amount of fecal material proximal to that site, and an area of stenosis was suspected. She did improve, though, with conservative management, and she subsequently was able to continue chemotherapy with weekly paclitaxel. As of November 2015 she had completed 7 cycles of treatment. Her chemotherapy was put on hold after her cycle 8 day 1 treatment due to diarrhea and increased abdominal pain. Abdominal x-rays showed just nonspecific gas pattern in the left abdomen. She had restaging CT abdomen/pelvis again on 01/13/2016. It showed no obstruction and no evidence of disease progression. There was no lymphadenopathy or ascites noted. Her symptoms had subsequently improved, and she did then proceed with her 9th cycle of chemotherapy. Beginning with cycle 10, Dr Lynne did have her change to a day 1/day 15 schedule. She had subsequently tolerated it much better. As of her follow-up visit on 08/06/2016, she appeared stable clinically, and at that point she continued with her 16th cycle of treatment. Her day 15 treatment with that cycle was not administered. She continued treatment with cycle 18 day 1 on 10/01/2016. On 10/06/2016 she was admitted to the hospital with pneumonia. CT pulmonary angiogram at that time showed no evidence of pulmonary emboli. There were widespread tree-in-bud pulmonary parenchymal nodularities and there was evidence of underlying chronic emphysema. There was new hilar or mediastinal lymphadenopathy noted, possibly reactive or neoplastic. Also noted was a superior segment left lower lobe pulmonary nodule measuring 8.4 mm. She did improve on antibiotic therapy, and she was discharged home on 10/10/2016. She had quit smoking just prior to the hospitalization. She did not receive day 15 treatment with that cycle. During subsequent follow-up, Dr Lynne opted to keep her chemotherapy on hold, as her disease had been very stable. Restaging CT scans of the chest, abdomen, and pelvis on 04/28/2017 showed resolved hilar and mediastinal adenopathy and resolved left lower lobe pulmonary nodule. There was stable appearance of the ileocolic anastomosis. There was no evidence of disease progression. Restaging CT scans of the chest, abdomen, and pelvis on 11/16/2018 showed unchanged medial middle lobe parenchymal opacity measuring 8-9 mm. Lingular and anterior left lower lobe subsegmental atelectasis and/or scarring also appeared unchanged. There was no evidence of disease progression in the chest, abdomen, or pelvis. In February 2019 she had presented with new onset of swelling in the right leg. Venous Doppler of the right leg on 03/09/2019 showed partially occlusive deep vein thrombosis of the superficial femoral vein with thrombus noted to extend into the greater saphenous vein. She began on anticoagulation with apixaban. Restaging CT scans on 03/22/2019 showed stable 8-9 mm pulmonary nodule in the right middle lobe. Right hilar and infrahilar hilar lymph nodes also appeared stable. Moderate right hydronephrosis with right ureterectasis appeared to be new. Slightly prominent right inguinal lymph nodes appeared unchanged. Overall, there was no evidence of disease progression in the chest, abdomen, or pelvis. She continued on observation/expectant management. Her other medical illnesses include hypertension, hypercholesterolemia and gastroesophageal reflux disease. She also has chronic obstructive pulmonary disease and she had a pretty severe episode of pneumonia in December 2008. She had stopped smoking following her hospitalization in September. 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 Other surgeries have been limited to tonsillectomy and tubal ligation. INTERIM HISTORY: In April 2019 a next generation sequencing study was performed on the specimen from her surgical resection in October 2012. It showed presence of a BRCA1 mutation, presumed to be somatic, as her original germline BRCA testing was negative. There were no other actionable mutations identified. Repeat CT abdomen/pelvis on 06/22/2019 showed enlarging soft tissue mass in the right side of the pelvis measuring 3.5 cm. This was noted to be in the area of surgical clips from her prior hysterectomy, and the appearance was felt to be consistent with local recurrence or metastatic adenopathy. The mass was noted to be adjacent to and possibly invading the psoas muscle. There was increasing hydronephrosis of the right kidney. She was referred to Dr. David. On 07/18/2019 she underwent exploratory laparotomy with extensive adhesive lysis and extensive retroperitoneal exploration and debulking of right pelvic/psoas muscle tumor. The tumor was noted to obstruct the right ureter, and the procedure included placement of a right ureteral stent. Pathology showed high-grade carcinoma which was PAX-8 and WT-1 positive. During follow-up she had ongoing problems with urinary tract infection and she continued to have significant pain in the right groin area and lower abdomen. Her repeat CT abdomen/pelvis on 12/12/2019 showed progression of a right pelvic mass compared to the June 2019 study. At that point it measured 5.8 x 3.8 x 6.5 cm and it was noted to encase the right ureter. It was inseparable from the distal small bowel loops and it was noted to abut the right L5-S1 disc space. There was interval placement of right ureteral stent with resolution of right hydronephrosis. With those findings and with the known BRCA mutation, she began a trial of therapy with olaparib 300 mg bid on 12/18/2019. As of her follow-up visit on 02/21/2020 she was still having significant pain in the right lower quadrant area and she also was reporting increased nausea and fatigue. There had been a significant decline in her CA 125 level. It was suspected that at least some of her symptoms were treatment related. She continued the olaparib, but with the dosage reduced to 200 mg twice daily. Subsequent to that visit she had 2 hospitalizations at [facility] in [place], only by 4 or 5 days. On both occasions she had bowel obstruction which was relieved with conservative management. Dr Lynne had seen her for a follow-up visit on 03/21/2020. She was beginning to feel better. There was further decline in the CA 125 level to 6.7 U/mL compared to 32.8 U/mL on 12/26/2019. Restaging CT of the abdomen/pelvis on 05/22/2020 showed resolution of the previously described right lower quadrant pelvic mass. A right double-J ureteral stent was noted to be in place. There was right renal cortical atrophy. There was no hydronephrosis. There was no adenopathy noted in the abdomen or pelvis. There was moderate constipation. She continued the olaparib at [address] scans on 11/07/2020 showed new subsegmental atelectasis in the lingula and left lower lobe, but no change in an 8 mm right middle lobe pulmonary nodule or and a 9 mm right hilar lymph node. There was possible tumor recurrence noted in the right pelvis with a slightly lobulated soft tissue nodule measuring 2.4 cm adjacent to the ureteral stent and with possible invasion into the right psoas muscle. There were no other findings suspicious for disease progression. Ms. Carrasco was in the [facility] emergency room on December 10, 2020 with complaints of abdominal pain. She was concerned that she was having significant constipation and was worried about bowel obstruction. She was not having nausea or vomiting on admission to the ER and states that she had been able to move gas but her bowel movements were difficult to pass with hard stools. She had taken a large dose of milk of magnesia and her Linzess for the constipation. She had a large bowel movement prior to her ER visit per the ER report. She did have a CT of the abdomen pelvis with contrast on 12/10/2020 at the ER visit. It was compared to her November 07, 2020 exam. She did have some slight pleural-based stranding in the left lung base suggesting scar. She was found to have an atrophic right kidney, and a worsening of the mid right hydronephrosis despite continued position of the proximal pigtail of the right ureteral stent in the right renal pelvis and the position of the distal pigtail in the anterior bladder. There was some prominent fluid distention of the stomach and moderate dilatation of the multiple small bowel loops there was no significant fluid or feces in the colon. It is noted that she continues to have degeneration of several disc. Mostly in the lumbar region. The final impression reported interval moderate dilatation of the some of the small bowel but no dilatation or other small bowel loops indicating possible small bowel obstruction. Ms. Carrasco did not want to stay for admission but was able to receive some IV hydration and tolerated p.o. fluids well. She was not having vomiting and was able to produce a bowel movement in the emergency room. She was found to have evidence of urinary tract infection and was placed on Omnicef for 5 days. Mrs. Carrasco has continued on olaparib at 200 mg twice daily. She is here today for follow-up. Her O2 sat on room air was 89-90% on presentation to the exam room. She was not wearing oxygen at the time because she states she does not have a portable tank that she can easily transport in and out of visits. She was placed on oxygen in the clinic and her O2 sat returned to normal range of 95%. She has no new concerns today. She states that she still has generalized weakness and limited mobility. She states she just cannot walk very far without being short of breath. She denies any cough or hemoptysis. She denies any fever or chills. She is interested in acquiring the Covid vaccine but states she is unsure where to obtain that. We did discuss because she is in [place] she could call her local pharmacy and arrange for an appointment through them. This seems to be the current process in [place]. She states she continues to have some lower abdominal pain but states is no worse than what is normal. Her pain medication regimen does take care of her pain. She has chronic back and joint pain but that is stable as well. She denies any mouth sores or trouble swallowing. She denies any urination. She continues to have chronic constipation but states she is watching what she eats a lot better and that seems to be improved some. She continues to have chronic neuropathy in her feet and legs for which she is on Lyrica. She has no UTI symptoms at present. She denies any new pain. She states her bowels are moving well since the ER visit. Her ECOG remains at 2. Past Medical History: Chronic back pain (secondary to ruptured discs) Depression Peripheral neuropathy in 2008 Hypothyroidism in 2007 Chronic obstructive pulmonary disease in 2007 Anxiety in 2002 Coronary artery disease in 2002 Hypercholesterolemia in 2002 Hypertension in 2002 Gastroesophageal reflux disease in 2002 Past Surgical History: Stent placement in the ureter Flu vaccine in 2019 Flu vaccine in 2018 - left deltoid Prevnar 13 in 2019 - right deltoid Pneumovax in 2015 Flu vaccine in 2015 Right subclavian Port in 2015 Flu vaccine in 2014 Flu in 2013 COLONOSCOPY in 2007 Appendectomy in 2002 Hysterectomy in 2002 - WITH BSO PORT PLACEMENT in 2002 Tubal ligation in 1991 Tonsillectomy in 1964 Allergies: Carboplatin Medications: Ativan 1 mg (of 1 mg) Tablet Oral at bedtime PRN Duragesic-100 2 Patch(es) (of 100 mcg) Patch 72 Hr Transdermal q 3 days Enalapril Maleate 1 (20 mg) Tablet Oral b.i.d. Lactulose Solution Oral PRN Levothroid 1 (50 mcg) Tablet Oral daily Lyrica 1 Capsule (of 75 mg) Oral b.i.d. Magnesium 1 Capsule Oral daily Metoclopramide HCl (10 mg) Tablet Oral four times a day MiraLax Pack Oral daily Mucinex Maximum Strength 1 Tablet (of 1200 mg) Tablet SR 12 HR Oral b.i.d. PRN NexIUM 1 (40 mg) Capsule Delayed Release Oral b.i.d. Norvasc 1 Tablet (of 5 mg) Oral daily OxyCODONE HCl 1 (20 mg) Tablet Oral q 4 hours PRN Potassium 1 Tablet (of 100 mg) Oral daily Proventil HFA Aerosol, solution Inhalation PRN Soma 1 (350 mg) Tablet Oral t.i.d. TRAZADONE 1 (100 mg) Tablet Oral at bedtime Venlafaxine HCl 1 (150 mg) Capsule SR 24 HR Oral daily Xarelto 1 Tablet (of 10 mg) Oral daily Zofran 1 Tablet (of 4 mg) Oral q 4 hours Family History: Ms. Carrasco's mother at age 59: cancer history consists of Breast cancer at age 28 while other medical history includes ID at age 57 (cause of ). Ms. Carrasco's father is alive. Ms. Carrasco does not know if her maternal grandmother is alive. She does not know if her maternal grandfather is alive. Ms. Carrasco has 1 brother who is alive. Social History: Ms. Carrasco is and she is an on disability. She is an occasional smoker who has smoked 0.5 packs/day for 31 years. She is a former drinker. She has indicated exposure to the following products: cigarettes. Ms. Carrasco reports the following support systems: lives with spouse, significant other, family, or friends, lives in own house, supportive family/friends willing to assist with needs, and adequate transportation available for expected visits. Her diet consists of regular meals. She indicates her activity level as: daily activities. she smokes 5 cigaretter per day and has an e cigarette. Review Of Symptoms: Constitutional Denies any fever. States having nights sweats-chronic and stable. Generalized fatigue- no better/no worse . Allergic/Immunologic No reactions. Eyes Denies significant visual changes. No diplopia. No amaurosis. ENMT Denies changes in hearing, sore throat, mouth sores, difficulty or changes in swallowing ability, and/or sinus drainage. Hematologic/Lymphatic Denies easy bruising or bleeding. The patient denies any tender or palpable lymph nodes. Breasts Denies breast masses, nipple discharge, nipple inversion and pain. Respiratory non productive cough-stable and continued shortness of breath. Wears oxygen supplementation with activity. Needs portable tank for traveling to [place]. Cardiovascular Denies anginal chest pain, palpitations or orthopnea. Gastrointestinal Denies nausea, vomiting, diarrhea, GI bleeding. Has chronic constipation, has prescription laxative. Genitourinary (F) No hematuria, hesitancy, incontinence, vaginal bleeding, discharge or other problems with urination. Musculoskeletal Denies joint swelling or redness. No decreased range of motion. States having generalized joint pain-chronic. Current pain regimen is now controlling her pain. Integumentary Denies chronic rashes, inflammation, ulcerations or skin changes. Neurologic Denies any no areas of focal weakness or numbness. Normal gait. No sensory problems.. back and leg pain-chronic and no worse than her normal. Psychiatric Denies worsening depression, denies any stephanie or mood swings. Vital Signs: Performed on Dec 12, 2020 12:00 Height - 67.00 in Temperature - 98.1 F (LOW) Pulse - 96 /min Respiration - 20 /min BP - 190/96 mm(hg) (HIGH) O2 Sat - 90 % (LOW) Pain - 10 Fatigue - 10,2 - Ambulatory/capable of all self-care, unable to perform any work activities. Up and about more than 50% of waking hours. (ECOG) Physical Examination: Constitutional Alert, oriented, no acute distress. Skin pink, warm and dry. Frail in appearance but she has taken care in her appearance. Head Normocephalic; atraumatic. Eyes Conjunctivae and sclerae are clear and without icterus. ENMT Sinuses are nontender. No oral exudates, ulcers, masses, or mucositis. Oropharynx clear. Hematologic/Lymphatic No petechiae or purpura. No tender or palpable lymph nodes in the cervical, supraclavicular areas. Respiratory Lungs are diminished bilaterally to auscultation without wheezing. Cardiovascular Regular rate and rhythm of heart without murmurs,clicks, gallops or rubs. Chest Chest is symmetric without chest wall deformities. Venous access device insertion site is unremarkable. Abdomen Non-tender, non-distended, no masses, ascites. Back/Spine Non-tender to palpation. Extremities No visible deformities, no cyanosis, clubbing. No lower extremity edema. Musculoskeletal No tenderness or swelling, normal range of motion without obvious weakness. Integumentary No rashes or lesions. Neurologic No sensory or motor deficits, normal cerebellar function, normal gait. Psychiatric Alert and oriented times three. Coherent speech. Verbalizes understanding of our discussions today. Laboratory:Test performed on Dec 12, 2020 12:53 CA-125 10.1 U/mL Test performed on Nov 07, 2020 09:38 Sodium 132 mmol/L Potassium 4.4 mmol/L Chloride 92 mmol/L CO2 33 mmol/L Anion Gap 11.4 BUN 8 mg/dL Creatinine 0.6 mg/dL Cr Clearance (Est) 86.46 mL/min eGFR 101.3 mL/min Glucose 74 mg/dL Osmolality - Calculated 271 mOsm/kg Calcium 9.1 mg/dL Protein, Total 7.1 g/dL Albumin 4.4 g/dL Globulin 2.7 g/dL Bilirubin, Total 0.5 mg/dL ALT (SGPT) 10 U/L AST (SGOT) 17 U/L Alkaline Phosphatase 86 IU/L WBC 4.1 10 3/uL RBC 4.48 10 6/uL HGB 14.5 g/dL HCT 43.0 % MCV 96.0 fL MCH 32.4 pg MCHC 33.7 g/dL RDW 16.0 % Platelet Count 125 10 3/cmm MPV 9.6 fL Neutrophils 2.75 10 3/uL Lymphocytes 0.9 10 3/uL Monocytes 0.4 10 3/uL Eosinophils 0.1 10 3/uL Basophils 0.0 10 3/uL Neutrophil % 66.8 % Lymphocyte % 21.1 % Monocyte % 9.5 % Eosinophil % 1.7 % Basophils % 0.7 % NRBC % 0 % Test performed on Sep 26, 2020 11:45 Ferritin 248 ng/mL Iron 69 mcg/dL Iron Binding Capacity (TIBC) 245 mcg/dl % Iron Saturation 28.1 % UIBC 176 mcg/dL Test performed on Jun 26, 2020 14:30 Ua Color Yellow Ua Appearance Clear Ua Glucose Norm Ua Bilirubin Neg Ua Ketones Negative Ua Specific [place] 1.005 Ua Blood Neg Ua pH 7.0 Ua Protein Neg Ua Nitrites Negative Ua Leukocyte Esterase Negative Impression: 1. Recurrent ovarian cancer. By next generation sequencing her tumor was noted to harbor a BRCA1 mutation, presumed somatic, as her original testing for germline BRCA was negative. Her tumor also was tested and found to be MSI stable with intact mismatch repair proteins. 2. She had optimal debulking following initial diagnosis in May 2003, and she received adjuvant chemotherapy with 6 cycles of carboplatin/paclitaxel. 3. She had further treatment with 4 cycles of carboplatin/paclitaxel in combination with Avastin following documented recurrence in July 2008. 4. She had restarted chemotherapy with carboplatin/gemcitabine in February 2013 following a surgical debulking procedure for disease progression with associated bowel obstruction. Her treatment was subsequently modified to single agent gemcitabine as a result of a hypersensitivity reaction to carboplatin. She had some response to the chemotherapy. As of January 2014 her disease was felt to be stable, and she was then observed off treatment. 5.. In May 2015 she restarted chemotherapy with weekly paclitaxel. Following her cycle 18 treatment on 09/17/2016 she had another hospital admission for pneumonia. As her disease had been stable and her performance status had been declining, her chemotherapy at that point was put on hold. 6. In December 2019 she began further treatment with olaparib after she was confirmed to have disease progression in the right pelvis with associated right hydronephrosis. Her other medical illnesses include: 7. Hypertension. 8. Hyperlipidemia. 9. GERD. 10. COPD. 11. Degenerative disease of the spine with chronic back pain. 12. Chronic anxiety/depression. Plan: 1. Recurrent ovarian cancer. In November 2019 she had evidence of disease progression with CT evidence of right pelvic mass with ureteral obstruction and hydronephrosis, requiring placement of right ureteral stent. In December 2019 she began a trial of therapy with olaparib, initially at 300 mg twice daily. She did show a very good response by follow-up CT scan and by CA-125 level, but she subsequently did require a dose reduction to 200 mg twice daily. During follow-up she has continued to have very marginal performance status, though it is uncertain to what extent that may be related to the ovarian cancer, to her treatment, or to other medical illnesses, particularly her underlying COPD. At this point her CA-125 level remains stable. Her CT scan 10/2020 showed findings suspicious for developing recurrence in the right pelvis. She did have follow-up CT in the ER on 12/10/2020 which did not mention the suspicious findings in the right pelvis. We will ask for cardiology over read and call her with report. A. She continues treatment with olaparib 200 mg twice daily. B. December 10, 2020 labs from the emergency room visit were reviewed in detail and discussed with Ralph Carrasco and a copy was given to her. WBC 12.1, hemoglobin 17.2 platelet 144,000 ANC is 10,000 potassium 4.2 creatinine 0.8 random glucose 140 calcium 10.4 LFTs were normal lipase was elevated at 68. Her CA-125 from today is 10.1. 2. She has chronic neuropathy pain related to previous chemotherapy/Chronic pain from generative disc disease of the spine. A. She continues to have significant pain despite being on opiate pain medication at significant dosages. Her current pain regimen includes fentanyl 200 mcg every 72 hours and oxycodone 30 mg 1 or 2 tablets every 4 hours as needed. B. She also has been taking Lyrica [address] Lynne did give her the option to try increasing to 3 times a day but she has not yet done that. She states she will try it and see how she tolerates it. Increase Lyrica to 150 mg 3 times daily as tolerated and encouraged her to watch for sedation. Her prescription was sent to [facility] in [place]. 3. She has severe underlying COPD. A. She has persisent COPD associated shortness of breath. B. She did improve with Levquin on her last visit and states overall she feels that part is much better. C. She requires continuous oxygen supplementation. She is sometimes noncompliant with activity as she does not have the oxygen supplementation equipment to meet her needs when she is ambulating or going into the doctor's office, grocery store, etc. She requires a lightweight portable oxygen tank due to her persistent COPD and generalized deconditioning due to recurrent ovarian cancer. 4. Follow-up plan: A. We will plan to see her back in 1 month with CBC, CMP and CA-125. B. Mrs. Carrasco has been instructed to contact us in the interim if she has any problems with increased Lyrica or if any questions or other problems arise. C. We will call her with comparison of the CTs once that is obtained. D. We will try to figure out where she could get a lightweight portable oxygen tank to help with compliance of her continuous oxygen therapy as required by her significant COPD. Greater than 45 minutes was spent in review of her ER records, current concerns from Mrs. Carrasco regarding her COPD symptoms as well as her slightly elevated CA-125. It is within normal limits yet but is elevating from her prior results. The visit time also included answering questions and post visit documentation. Given the significance of many concerns with recurrent ovarian cancer, chronic pain management and significant COPD as well as a peripheral neuropathy, her medications (oral chemotherapy, narcotic pain medication, Lyrica management) require close monitoring as she is high risk for further complications given her fragile state. Signed By: Daniella Jacobsen-, AOP Ravi Lynne MD <<Signature on File>>
== END 2020-12-12 11:21 | disposition home or self-care (01) ==
LOC: ONCMED 11:23
PROVIDERS: Visit Provider Nurse Practitioner
DX: C56.1 Malignant neoplasm of right ovary (principal); D50.9 Iron deficiency anemia, unspecified; G62.0 Drug-induced polyneuropathy; T45.1X5A Adverse effect of antineoplastic and immunosuppressive drugs, initial encounter; E03.9 Hypothyroidism, unspecified; J44.9 Chronic obstructive pulmonary disease, unspecified; E78.00 Pure hypercholesterolemia, unspecified; F41.9 Anxiety disorder, unspecified; I10 Essential (primary) hypertension; K21.9 Gastro-esophageal reflux disease without esophagitis; Z79.899 Other long term (current) drug therapy
CPT/HCPCS: 36591; 86304; 99215

== ENCOUNTER 2021-01-13 09:01 | Outpatient (CLI) | payer MEDICARE, OTHER, SELFPAY ==
[2021-01-13 09:56] LABS: Basophils % 0.4 %; Eosinophils # 0.1 10^3/uL (0.0-0.8); Hematocrit 40.5 % (37.0-47.0); Hemoglobin 13.4 g/dL (11.5-15.3); Lymphocytes % 21.7 %; Mean Corpuscular HGB Conc 33.1 g/dL (30.0-36.0); Mean Corpuscular Hemoglobin 32.8 pg (28.0-34.0); Mean Corpuscular Volume 99.3 fL (81-99); Mean Platelet Volume 10.2 fL (7.4-10.4); Monocytes # 0.4 10^3/uL (0.2-0.9); Monocytes % 8.5 %; Neutrophils # 2.99 10^3/uL (1.8-7.7); Neutrophils % 67.2 %; Nucleated Red Blood Cells % 0 %; Platelet Count 130 10^3/cmm (130-400); Red Blood Count 4.08 10^6/uL (4.1-5.3); Red Cell Distribution Width 14.1 % (12.1-15.1); White Blood Count 4.5 10^3/uL (4.0-10.0)
[2021-01-13 10:07] LABS: Alanine Aminotransferase 9 U/L (0-33); Albumin Level 4.3 g/dL (3.5-5.2); Alkaline Phosphatase 70 IU/L (35-105); Anion Gap 10.1 (5-19); Aspartate Amino Transferase 14 U/L (0-32); Blood Urea Nitrogen 8 mg/dL (8-23); Calcium 9.1 mg/dL (8.5-10.5); Carbon Dioxide 33 mmol/L (22-29); Chloride 92 mmol/L (98-107); Globulin 2.9 g/dL (1.3-4.6); Glomerular Filtration Rate 101.3 mL/min (90-130); Glucose 80 mg/dL (65-115); Osmolality Calculated 269 mOsm/kg (285-295); Potassium 4.1 mmol/L (3.5-5.1); Sodium 131 mmol/L (136-145); Total Bilirubin 0.6 mg/dL (0.15-1.2); Total Protein 7.2 g/dL (6.6-8.7)
[2021-01-13 11:27] LABS: Add Urine Microscopic? NO
[2021-01-13 11:35] LABS: CA 125 12.1 U/mL (0-35)
[2021-01-13 11:37] LABS: Bilirubin Urine Neg (Negative); Blood Urine Neg (Negative); Glucose Urine UA Norm (Normal); Ketones Urine Negative (Negative); Leukocyte Esterase Urine Negative (Negative); Nitrate Urine Negative (Negative); Protein Urine Neg (Negative); Urine Appearance Clear (CLEAR); Urine Color Yellow (Yellow); Urobilinogen Urine Norm (Negative); pH Urine 7 (5-7)
[2021-01-13] MEDS: ipratropium-albuterol 3 mL Neb INHALATION (11:56)
--- NOTE | 2021-01-14 06:38 | ONC FU_ITS ---
Dr. Lynne Patient Follow-Up Note Patient: Nisreen Carrasco V Unit #: [id number]: [id number] Dicatated By: Ravi Lynne M.D.Date of Visit:Jan 13, 2021 Onc Med Follow-up/Prog Note Chief Complaint: Ovarian cancer History of Present Illness: This is a 60 year-old woman with recurrent ovarian cancer. She had optimal resection with her initial surgery back in May 2003. She had documented recurrence in July 2008, nearly 5 years after completion of adjuvant chemotherapy with 6 cycles of carboplatin/Taxol. She was retreated at that time with carboplatin/Taxol chemotherapy, but in combination with Avastin. Treatment was stopped after 4 cycles because of worsening neuropathy, but she did have a very good clinical response with normalization of the CA-125 level. She was then followed on observation. She did well until July 2012 when she presented with small bowel obstruction. Her Ca-125 level at that point had not increased and the obstruction initially did improve with conservative management. Ultimately, though, she was confirmed to have disease recurrence in the abdomen. She underwent surgery at [facility] in October 2012. At laparotomy there were extensive adhesions in the abdomen, but there was recurrent tumor in the right mid abdomen and right upper quadrant. It was involving the cecum, the mesocolon, and the small bowel mesentery in a multiple twisted mass. There also was periaortic juanita involvement. She underwent right hemicolectomy and primary anastamosis of the bowel with complete resection of the mass. 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 She had gradual recovery from that procedure. In February 2013 she restarted chemotherapy with carboplatin in combination with gemcitabine. She experienced a significant hypersensitivity reaction to the carboplatin with the third cycle of treatment. She then continued chemotherapy with single agent gemcitabine. She experienced significant fatigue and myelosuppression with gemcitabine, even at a reduced dose level. She did not tolerate an attempt at dose escalation. She had some ongoing GI symptoms during this time, but no documented disease progression. She had a followup visit with Dr. David in January 2014. Her disease at that time appeared stable, and it was recommended that she stop chemotherapy again and just go back on observation. By May 2015 she was having significantly more abdominal pain and repeat CT abdomen/pelvis at that point was highly suspicious for recurrent metastatic disease at the site of the ileocolic anastomosis. That study showed no obvious metastatic involvement in the liver and no ascites. In June 2015 she restarted chemotherapy with weekly paclitaxel. She initially was tolerating it pretty well on a day 1/day 8 schedule every 3 weeks. She had presented at day 15 of her third cycle with severe abdominal pain and nausea. Repeat CT scan showed increasing soft tissue at the ileocolic anastomosis. There was a large amount of fecal material proximal to that site, and an area of stenosis was suspected. She did improve, though, with conservative management, and she subsequently was able to continue chemotherapy with weekly paclitaxel. As of November 2015 she had completed 7 cycles of treatment. Her chemotherapy was put on hold after her cycle 8 day 1 treatment due to diarrhea and increased abdominal pain. Abdominal x-rays showed just nonspecific gas pattern in the left abdomen. She had restaging CT abdomen/pelvis again on 01/13/2016. It showed no obstruction and no evidence of disease progression. There was no lymphadenopathy or ascites noted. Her symptoms had subsequently improved, and she did then proceed with her 9th cycle of chemotherapy. Beginning with cycle 10, I did have her change to a day 1/day 15 schedule. She had subsequently tolerated it much better. As of her follow-up visit on 08/06/2016, she appeared stable clinically, and at that point she continued with her 16th cycle of treatment. Her day 15 treatment with that cycle was not administered. She continued treatment with cycle 18 day 1 on 10/01/2016. On 10/06/2016 she was admitted to the hospital with pneumonia. CT pulmonary angiogram at that time showed no evidence of pulmonary emboli. There were widespread tree-in-bud pulmonary parenchymal nodularities and there was evidence of underlying chronic emphysema. There was new hilar or mediastinal lymphadenopathy noted, possibly reactive or neoplastic. Also noted was a superior segment left lower lobe pulmonary nodule measuring 8.4 mm. She did improve on antibiotic therapy, and she was discharged home on 10/10/2016. She had quit smoking just prior to the hospitalization. She did not receive day 15 treatment with that cycle. During subsequent follow-up, I opted to keep her chemotherapy on hold, as her disease had been very stable. Restaging CT scans of the chest, abdomen, and pelvis on 04/28/2017 showed resolved hilar and mediastinal adenopathy and resolved left lower lobe pulmonary nodule. There was stable appearance of the ileocolic anastomosis. There was no evidence of disease progression. Restaging CT scans of the chest, abdomen, and pelvis on 11/16/2018 showed unchanged medial middle lobe parenchymal opacity measuring 8-9 mm. Lingular and anterior left lower lobe subsegmental atelectasis and/or scarring also appeared unchanged. There was no evidence of disease progression in the chest, abdomen, or pelvis. In February 2019 she had presented with new onset of swelling in the right leg. Venous Doppler of the right leg on 03/09/2019 showed partially occlusive deep vein thrombosis of the superficial femoral vein with thrombus noted to extend into the greater saphenous vein. She began on anticoagulation with apixaban. Restaging CT scans on 03/22/2019 showed stable 8-9 mm pulmonary nodule in the right middle lobe. Right hilar and infrahilar hilar lymph nodes also appeared stable. Moderate right hydronephrosis with right ureterectasis appeared to be new. Slightly prominent right inguinal lymph nodes appeared unchanged. Overall, there was no evidence of disease progression in the chest, abdomen, or pelvis. She continued on observation/expectant management. Her other medical illnesses include hypertension, hypercholesterolemia and gastroesophageal reflux disease. She also has chronic obstructive pulmonary disease and she had a pretty severe episode of pneumonia in December 2008. She had stopped smoking following her hospitalization in September. 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 Other surgeries have been limited to tonsillectomy and tubal ligation. INTERIM HISTORY: In April 2019 a next generation sequencing study was performed on the specimen from her surgical resection in October 2012. It showed presence of a BRCA1 mutation, presumed to be somatic, as her original germline BRCA testing was negative. There were no other actionable mutations identified. Repeat CT abdomen/pelvis on 06/22/2019 showed enlarging soft tissue mass in the right side of the pelvis measuring 3.5 cm. This was noted to be in the area of surgical clips from her prior hysterectomy, and the appearance was felt to be consistent with local recurrence or metastatic adenopathy. The mass was noted to be adjacent to and possibly invading the psoas muscle. There was increasing hydronephrosis of the right kidney. She was referred to Dr. David. On 07/18/2019 she underwent exploratory laparotomy with extensive adhesive lysis and extensive retroperitoneal exploration and debulking of right pelvic/psoas muscle tumor. The tumor was noted to obstruct the right ureter, and the procedure included placement of a right ureteral stent. Pathology showed high-grade carcinoma which was PAX-8 and WT-1 positive. During follow-up she had ongoing problems with urinary tract infection and she continued to have significant pain in the right groin area and lower abdomen. Her repeat CT abdomen/pelvis on 12/12/2019 showed progression of a right pelvic mass compared to the June 2019 study. At that point it measured 5.8 x 3.8 x 6.5 cm and it was noted to encase the right ureter. It was inseparable from the distal small bowel loops and it was noted to abut the right L5-S1 disc space. There was interval placement of right ureteral stent with resolution of right hydronephrosis. With those findings and with the known BRCA mutation, she began a trial of therapy with olaparib 300 mg bid on 12/18/2019. As of her follow-up visit on 02/21/2020 she was still having significant pain in the right lower quadrant area and she also was reporting increased nausea and fatigue. There had been a significant decline in her CA 125 level. I had suspected that at least some of her symptoms were treatment related. She continued the olaparib, but with the dosage reduced to 200 mg twice daily. Subsequent to that visit she had 2 hospitalizations at [facility], only by 4 or 5 days. On both occasions she had bowel obstruction which was relieved with conservative management. I had seen her for a follow-up visit on 03/21/2020. She was beginning to feel better. There was further decline in the CA 125 level to 6.7 U/mL compared to 32.8 U/mL on 12/26/2019. Restaging CT of the abdomen/pelvis on 05/22/2020 showed resolution of the previously described right lower quadrant pelvic mass. A right double-J ureteral stent was noted to be in place. There was right renal cortical atrophy. There was no hydronephrosis. There was no adenopathy noted in the abdomen or pelvis. There was moderate constipation. She continued the olaparib at 200 mg twice daily[address] CT scans on 11/07/2020 showed new subsegmental atelectasis in the lingula and left lower lobe, but no change in an 8 mm right middle lobe pulmonary nodule or and a 9 mm right hilar lymph node. There was possible tumor recurrence noted in the right pelvis with a slightly lobulated soft tissue nodule measuring 2.4 cm adjacent to the ureteral stent and with possible invasion into the right psoas muscle. There were no other findings suspicious for disease progression. She continued treatment with olaparib 200 mg twice daily. On 12/10/2000 she was seen in the emergency room with abdominal pain. Her CT abdomen/pelvis showed interval moderate dilatation of multiple small bowel loops and prominent fluid distention of the stomach suggesting possible small bowel obstruction, though no obvious transition zone was evident. There was continued atrophy of the right kidney but interval worsening of mild right hydronephrosis. There was good positioning of the right ureteral stent. She is seen for a scheduled visit. She has been feeling rundown. She continues to have significant abdominal pain, and she also has pain extending down from her lower back to her right hip area and groin. She has not had much activity. ECOG score is 2. Her appetite comes and goes. Her weight is down a couple of pounds. She has not had fever. She has just occasional hot flashes. She has shortness of breath and cough. She is on continuous oxygen. She sometimes has chest pain. She has nausea and she has acid reflux. Bowel function is inconsistent. She has no complaints. She does not complain of headache. She sometimes has dizziness. She says her neuropathy is horrible. Medications: Ativan 1 mg (of 1 mg) Tablet Oral at bedtime PRN, Duragesic-100 2 Patch(es) (of 100 mcg) Patch 72 Hr Transdermal q 3 days, Enalapril Maleate 1 (20 mg) Tablet Oral b.i.d., Lactulose Solution Oral PRN, Levothroid 1 (50 mcg) Tablet Oral daily, Lyrica 1 Capsule (of 75 mg) Oral b.i.d., Magnesium 1 Capsule Oral daily, Metoclopramide HCl (10 mg) Tablet Oral four times a day, MiraLax Pack Oral daily, Mucinex Maximum Strength 1 Tablet (of 1200 mg) Tablet SR 12 HR Oral b.i.d. PRN, NexIUM 1 (40 mg) Capsule Delayed Release Oral b.i.d., Norvasc 1 Tablet (of 5 mg) Oral daily, OxyCODONE HCl 1 (20 mg) Tablet Oral q 4 hours PRN, Potassium 1 Tablet (of 100 mg) Oral daily, Proventil HFA Aerosol, solution Inhalation PRN, Soma 1 (350 mg) Tablet Oral t.i.d., TRAZADONE 1 (100 mg) Tablet Oral at bedtime, Venlafaxine HCl 1 (150 mg) Capsule SR 24 HR Oral daily, Xarelto 1 Tablet (of 10 mg) Oral daily, Zofran 1 Tablet (of 4 mg) Oral q 4 hours Allergies: Carboplatin Vital Signs: Performed on Jan 13, 2021 09:35 Height - 67.00 in Temperature - 99.9 F (HIGH) Pulse - 84 /min Respiration - 18 /min BP - 145/91 mm(hg) (HIGH) O2 Sat - 96 % Pain - 5 Fatigue - 5 Physical Examination: Constitutional - She appears chronically ill, Eyes - Sclerae nonicteric. Conjunctivae clear, ENMT - Mouth is dry. There are no lesions noted in the oral cavity, Hematologic/Lymphatic - No cervical, clavicular, or axillary adenopathy, Respiratory - Lungs show diminished air movement bilaterally, Cardiovascular - Heart rhythm is regular. There is no murmur, gallop, or rub noted, Abdomen - Soft. There is generalized abdominal tenderness , worse on the right. Liver and spleen are not enlarged. There is no abdominal mass noted and there is no obvious ascites. There is no inguinal adenopathy, Extremities - No edema, Neurologic - No focal neurologic deficits noted. Lab/Imaging: Test performed on Jan 13, 2021 09:27 Sodium 131 mmol/L Potassium 4.1 mmol/L Chloride 92 mmol/L CO2 33 mmol/L Anion Gap 10.1 BUN 8 mg/dL Creatinine 0.6 mg/dL Cr Clearance (Est) 86.4600 mL/min eGFR 101.3 mL/min Glucose 80 mg/dL Osmolality - Calculated 269 mOsm/kg Calcium 9.1 mg/dL Protein, Total 7.2 g/dL Albumin 4.3 g/dL Globulin 2.9 g/dL Bilirubin, Total 0.6 mg/dL ALT (SGPT) 9 U/L AST (SGOT) 14 U/L Alkaline Phosphatase 70 IU/L WBC 4.5 10 3/uL RBC 4.08 10 6/uL HGB 13.4 g/dL HCT 40.5 % MCV 99.3 fL MCH 32.8 pg MCHC 33.1 g/dL RDW 14.1 % Platelet Count 130 10 3/cmm MPV 10.2 fL Neutrophils 2.99 10 3/uL Lymphocytes 1.0 10 3/uL Monocytes 0.4 10 3/uL Eosinophils 0.1 10 3/uL Basophils 0.0 10 3/uL Neutrophil % 67.2 % Lymphocyte % 21.7 % Monocyte % 8.5 % Eosinophil % 2.0 % Basophils % 0.4 % NRBC % 0 % CA-125 12.1 U/mL Problem List: 1. Recurrent ovarian cancer. By next generation sequencing her tumor was noted to harbor a BRCA1 mutation, presumed somatic, as her original testing for germline BRCA was negative. Her tumor also was tested and found to be MSI stable with intact mismatch repair proteins. 2. She had optimal debulking following initial diagnosis in May 2003, and she received adjuvant chemotherapy with 6 cycles of carboplatin/paclitaxel. 3. She had further treatment with 4 cycles of carboplatin/paclitaxel in combination with Avastin following documented recurrence in July 2008. 4. She had restarted chemotherapy with carboplatin/gemcitabine in February 2013 following a surgical debulking procedure for disease progression with associated bowel obstruction. Her treatment was subsequently modified to single agent gemcitabine as a result of a hypersensitivity reaction to carboplatin. She had some response to the chemotherapy. As of January 2014 her disease was felt to be stable, and she was then observed off treatment. 5.. In May 2015 she restarted chemotherapy with weekly paclitaxel. Following her cycle 18 treatment on 09/17/2016 she had another hospital admission for pneumonia. As her disease had been stable and her performance status had been declining, her chemotherapy at that point was put on hold. 6. In December 2019 she began further treatment with olaparib after she was confirmed to have disease progression in the right pelvis with associated right hydronephrosis. Her other medical illnesses include: 7. Hypertension. 8. Hyperlipidemia. 9. GERD. 10. COPD. 11. Degenerative disease of the spine with chronic back pain. 12. Chronic anxiety/depression. Problems Addressed with this Encounter and Plan: 1. Recurrent ovarian cancer. In November 2019 she had evidence of disease progression with CT evidence of right pelvic mass with ureteral obstruction and hydronephrosis, requiring placement of right ureteral stent. In December 2019 she began a trial of therapy with olaparib, initially at 300 mg twice daily. She did show a very good response by follow-up CT scan and by CA-125 level, but she subsequently did require a dose reduction to 200 mg twice daily. During the past several months she has had gradual worsening of abdominal pain. She has CT findings which are suspicious for partial or developing small bowel obstruction. On my review of the October study with the radiologist, there did appear to be significant worsening in the appearance of the bowel compared to previous studies. There was no obvious recurrence of mass associated with the right hydronephrosis, but that area was difficult to visualize. Her CA-125 level now is up slightly. She continues to have significant abdominal pain, and she has very marginal performance status. Overall, her clinical presentation appears consistent with gradual progression of her ovarian cancer. Her further treatment options unfortunately are very limited, particularly with her significant residual neuropathy. At least for now she will continue the olaparib 200 mg twice daily. She will tentatively be scheduled for follow-up in 1 month. In the meantime, will recheck urinalysis and culture, she has been very prone to urinary tract infection. 2. 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 She continues symptomatic management. 3. She has severe underlying COPD. She is on continuous oxygen. Signed By: Ravi Lynne M.D. <<Signature on File>>
== END 2021-01-13 09:02 | disposition home or self-care (01) ==
LOC: ONCMED 09:04
PROVIDERS: Visit Provider Internal Medicine Medical Oncology
DX: C56.1 Malignant neoplasm of right ovary (principal); R97.0 Elevated carcinoembryonic antigen [CEA]; R10.9 Unspecified abdominal pain; G62.0 Drug-induced polyneuropathy; T45.1X5S Adverse effect of antineoplastic and immunosuppressive drugs, sequela; J44.9 Chronic obstructive pulmonary disease, unspecified; Z87.440 Personal history of urinary (tract) infections; Z79.899 Other long term (current) drug therapy; Z99.81 Dependence on supplemental oxygen
CPT/HCPCS: 36591; 80053; 81003; 85025; 86304; 99214

== ENCOUNTER 2021-02-06 12:48 | Outpatient (CLI) | payer MEDICARE, OTHER, SELFPAY ==
[2021-02-06] MEDS: alteplase 1 mg/mL SDV 2 mL 2 MG INTRACATH (13:45)
== END 2021-02-06 12:49 | disposition home or self-care (01) ==
PROVIDERS: Visit Provider Internal Medicine Medical Oncology
DX: C56.1 Malignant neoplasm of right ovary (principal); C79.89 Secondary malignant neoplasm of other specified sites; D50.9 Iron deficiency anemia, unspecified; D69.49 Other primary thrombocytopenia; G60.9 Hereditary and idiopathic neuropathy, unspecified; E03.9 Hypothyroidism, unspecified; J44.9 Chronic obstructive pulmonary disease, unspecified; E78.00 Pure hypercholesterolemia, unspecified; F41.9 Anxiety disorder, unspecified; F32.9 Major depressive disorder, single episode, unspecified; K21.9 Gastro-esophageal reflux disease without esophagitis; I10 Essential (primary) hypertension; Z79.899 Other long term (current) drug therapy
CPT/HCPCS: 36593; 96374; J2997

== ENCOUNTER 2021-02-28 08:59 | Outpatient (CLI) | payer MEDICARE, OTHER, SELFPAY ==
--- NOTE | 2021-02-28 09:15 | XR_ITS ---
WS: [id number] KUB, AP view, 02/28/2021 Clinical Data: ureteral obstruction Comparison: Acute abdomen, 12/10/2020 Findings: No abnormal intraabdominal masses or calcifications are seen. There is no dilatated small bowel or ev idence of obstruction. The right ureteral stent remains in good position. There is air in the small bowel and colon. There a re surgical clips in the midabdomen and pelvis unchanged. XR/XR KUB [id number] Impression: 1. No change in right ureteral stent. 2. Mild ileus.
== END 2021-02-28 09:00 | disposition home or self-care (01) ==
LOC: RAD 09:03
PROVIDERS: Visit Provider Urology
DX: N13.5 Crossing vessel and stricture of ureter without hydronephrosis (principal); Z96.0 Presence of urogenital implants; K56.7 Ileus, unspecified
CPT/HCPCS: 74018; 81003

== ENCOUNTER → 2021-03-03 11:07 | Outpatient (BNVA) | payer MEDICARE, OTHER, SELFPAY | PROVIDERS: Visit Provider Nurse Practitioner Family | DX: N13.5 Crossing vessel and stricture of ureter without hydronephrosis (principal); Z20.822 Contact with and (suspected) exposure to COVID-19 | CPT/HCPCS: 87635 ==

== ENCOUNTER 2021-03-05 12:56 | Outpatient (CLI) | payer MEDICARE, OTHER, SELFPAY ==
[2021-03-05 15:03] LABS: Basophils % 0.6 %; Eosinophils # 0.1 10^3/uL (0.0-0.8); Eosinophils % 2.4 %; Hematocrit 41.8 % (37.0-47.0); Hemoglobin 14.1 g/dL (11.5-15.3); Lymphocytes # 1.1 10^3/uL (0.8-4.8); Lymphocytes % 21.6 %; Mean Corpuscular HGB Conc 33.7 g/dL (30.0-36.0); Mean Corpuscular Hemoglobin 33.2 pg (28.0-34.0); Mean Corpuscular Volume 98.4 fL (81-99); Mean Platelet Volume 10.3 fL (7.4-10.4); Monocytes # 0.4 10^3/uL (0.2-0.9); Monocytes % 7.7 %; Neutrophils # 3.39 10^3/uL (1.8-7.7); Neutrophils % 67.3 %; Nucleated Red Blood Cells % 0 %; Platelet Count 115 10^3/cmm (130-400); Red Blood Count 4.25 10^6/uL (4.1-5.3); Red Cell Distribution Width 13.4 % (12.1-15.1)
[2021-03-05 18:43] LABS: Alanine Aminotransferase 9 U/L (0-33); Albumin Level 4.7 g/dL (3.5-5.2); Alkaline Phosphatase 76 IU/L (35-105); Anion Gap 17.1 (5-19); Aspartate Amino Transferase 16 U/L (0-32); Blood Urea Nitrogen 8 mg/dL (8-23); Calcium 8.8 mg/dL (8.5-10.5); Carbon Dioxide 28 mmol/L (22-29); Chloride 93 mmol/L (98-107); Globulin 2.7 g/dL (1.3-4.6); Glomerular Filtration Rate 101.3 mL/min (90-130); Glucose 70 mg/dL (65-115); Osmolality Calculated 275 mOsm/kg (285-295); Potassium 4.1 mmol/L (3.5-5.1); Sodium 134 mmol/L (136-145); Thyroid Stimulating Hormone 2.55 uIU/mL (0.27-4.20); Total Bilirubin 0.4 mg/dL (0.15-1.2); Total Protein 7.4 g/dL (6.6-8.7)
[2021-03-05 21:37] LABS: Ferritin 155 ng/mL (15-150); Iron 46 ug/dL (37-145); Percent Saturation 18.7 % (20-50); Total Iron Binding Capacity 245 mcg/dl; Unsaturated Iron Binding 199 ug/dL (112-347)
--- NOTE | 2021-03-13 12:37 | ONC FU_ITS ---
[facility] Patient Note Patient: Nisreen Carrasco V Unit #: [id number]: 1960 Dictated By: Daniella JacobsenDate of Visit: March 05, 2021 Onc MED Follow-Up/Prog Note Chief Complaint: Ovarian cancer History of Present Illness: Mrs Carrasco is a 60 year-old woman with recurrent ovarian cancer. She had optimal resection with her initial surgery back in May 2003. She had documented recurrence in July 2008, nearly 5 years after completion of adjuvant chemotherapy with 6 cycles of carboplatin/Taxol. She was retreated at that time with carboplatin/Taxol chemotherapy, but in combination with Avastin. Treatment was stopped after 4 cycles because of worsening neuropathy, but she did have a very good clinical response with normalization of the CA-125 level. She was then followed on observation. She did well until July 2012 when she presented with small bowel obstruction. Her Ca-125 level at that point had not increased and the obstruction initially did improve with conservative management. Ultimately, though, she was confirmed to have disease recurrence in the abdomen. She underwent surgery at [facility] in October 2012. At laparotomy there were extensive adhesions in the abdomen, but there was recurrent tumor in the right mid abdomen and right upper quadrant. It was involving the cecum, the mesocolon, and the small bowel mesentery in a multiple twisted mass. There also was periaortic juanita involvement. She underwent right hemicolectomy and primary anastamosis of the bowel with complete resection of the mass. 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 She had gradual recovery from that procedure. In February 2013 she restarted chemotherapy with carboplatin in combination with gemcitabine. She experienced a significant hypersensitivity reaction to the carboplatin with the third cycle of treatment. She then continued chemotherapy with single agent gemcitabine. She experienced significant fatigue and myelosuppression with gemcitabine, even at a reduced dose level. She did not tolerate an attempt at dose escalation. She had some ongoing GI symptoms during this time, but no documented disease progression. She had a followup visit with Dr. David in January 2014. Her disease at that time appeared stable, and it was recommended that she stop chemotherapy again and just go back on observation. By May 2015 she was having significantly more abdominal pain and repeat CT abdomen/pelvis at that point was highly suspicious for recurrent metastatic disease at the site of the ileocolic anastomosis. That study showed no obvious metastatic involvement in the liver and no ascites. In June 2015 she restarted chemotherapy with weekly paclitaxel. She initially was tolerating it pretty well on a day 1/day 8 schedule every 3 weeks. She had presented at day 15 of her third cycle with severe abdominal pain and nausea. Repeat CT scan showed increasing soft tissue at the ileocolic anastomosis. There was a large amount of fecal material proximal to that site, and an area of stenosis was suspected. She did improve, though, with conservative management, and she subsequently was able to continue chemotherapy with weekly paclitaxel. As of November 2015 she had completed 7 cycles of treatment. Her chemotherapy was put on hold after her cycle 8 day 1 treatment due to diarrhea and increased abdominal pain. Abdominal x-rays showed just nonspecific gas pattern in the left abdomen. She had restaging CT abdomen/pelvis again on 01/13/2016. It showed no obstruction and no evidence of disease progression. There was no lymphadenopathy or ascites noted. Her symptoms had subsequently improved, and she did then proceed with her 9th cycle of chemotherapy. Beginning with cycle 10, I did have her change to a day 1/day 15 schedule. She had subsequently tolerated it much better. As of her follow-up visit on 08/06/2016, she appeared stable clinically, and at that point she continued with her 16th cycle of treatment. Her day 15 treatment with that cycle was not administered. She continued treatment with cycle 18 day 1 on 10/01/2016. On 10/06/2016 she was admitted to the hospital with pneumonia. CT pulmonary angiogram at that time showed no evidence of pulmonary emboli. There were widespread tree-in-bud pulmonary parenchymal nodularities and there was evidence of underlying chronic emphysema. There was new hilar or mediastinal lymphadenopathy noted, possibly reactive or neoplastic. Also noted was a superior segment left lower lobe pulmonary nodule measuring 8.4 mm. She did improve on antibiotic therapy, and she was discharged home on 10/10/2016. She had quit smoking just prior to the hospitalization. She did not receive day 15 treatment with that cycle. During subsequent follow-up, it was opted to keep her chemotherapy on hold, as her disease had been very stable. Restaging CT scans of the chest, abdomen, and pelvis on 04/28/2017 showed resolved hilar and mediastinal adenopathy and resolved left lower lobe pulmonary nodule. There was stable appearance of the ileocolic anastomosis. There was no evidence of disease progression. Restaging CT scans of the chest, abdomen, and pelvis on 11/16/2018 showed unchanged medial middle lobe parenchymal opacity measuring 8-9 mm. Lingular and anterior left lower lobe subsegmental atelectasis and/or scarring also appeared unchanged. There was no evidence of disease progression in the chest, abdomen, or pelvis. In February 2019 she had presented with new onset of swelling in the right leg. Venous Doppler of the right leg on 03/09/2019 showed partially occlusive deep vein thrombosis of the superficial femoral vein with thrombus noted to extend into the greater saphenous vein. She began on anticoagulation with apixaban. Restaging CT scans on 03/22/2019 showed stable 8-9 mm pulmonary nodule in the right middle lobe. Right hilar and infrahilar hilar lymph nodes also appeared stable. Moderate right hydronephrosis with right ureterectasis appeared to be new. Slightly prominent right inguinal lymph nodes appeared unchanged. Overall, there was no evidence of disease progression in the chest, abdomen, or pelvis. She continued on observation/expectant management. Her other medical illnesses include hypertension, hypercholesterolemia and gastroesophageal reflux disease. She also has chronic obstructive pulmonary disease and she had a pretty severe episode of pneumonia in December 2008. She had stopped smoking following her hospitalization in September. 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 Other surgeries have been limited to tonsillectomy and tubal ligation. INTERIM HISTORY: In April 2019 a next generation sequencing study was performed on the specimen from her surgical resection in October 2012. It showed presence of a BRCA1 mutation, presumed to be somatic, as her original germline BRCA testing was negative. There were no other actionable mutations identified. Repeat CT abdomen/pelvis on 06/22/2019 showed enlarging soft tissue mass in the right side of the pelvis measuring 3.5 cm. This was noted to be in the area of surgical clips from her prior hysterectomy, and the appearance was felt to be consistent with local recurrence or metastatic adenopathy. The mass was noted to be adjacent to and possibly invading the psoas muscle. There was increasing hydronephrosis of the right kidney. She was referred to Dr. David. On 07/18/2019 she underwent exploratory laparotomy with extensive adhesive lysis and extensive retroperitoneal exploration and debulking of right pelvic/psoas muscle tumor. The tumor was noted to obstruct the right ureter, and the procedure included placement of a right ureteral stent. Pathology showed high-grade carcinoma which was PAX-8 and WT-1 positive. During follow-up she had ongoing problems with urinary tract infection and she continued to have significant pain in the right groin area and lower abdomen. Her repeat CT abdomen/pelvis on 12/12/2019 showed progression of a right pelvic mass compared to the June 2019 study. At that point it measured 5.8 x 3.8 x 6.5 cm and it was noted to encase the right ureter. It was inseparable from the distal small bowel loops and it was noted to abut the right L5-S1 disc space. There was interval placement of right ureteral stent with resolution of right hydronephrosis. With those findings and with the known BRCA mutation, she began a trial of therapy with olaparib 300 mg bid on 12/18/2019. As of her follow-up visit on 02/21/2020 she was still having significant pain in the right lower quadrant area and she also was reporting increased nausea and fatigue. There had been a significant decline in her CA [address] Lynne had suspected that at least some of her symptoms were treatment related. She continued the olaparib, but with the dosage reduced to 200 mg twice daily. Subsequent to that visit she had 2 hospitalizations at [facility] in [place], only by 4 or 5 days. On both occasions she had bowel obstruction which was relieved with conservative management. Dr Lynne had seen her for a follow-up visit on 03/21/2020. She was beginning to feel better. There was further decline in the CA 125 level to 6.7 U/mL compared to 32.8 U/mL on 12/26/2019. Restaging CT of the abdomen/pelvis on 05/22/2020 showed resolution of the previously described right lower quadrant pelvic mass. A right double-J ureteral stent was noted to be in place. There was right renal cortical atrophy. There was no hydronephrosis. There was no adenopathy noted in the abdomen or pelvis. There was moderate constipation. She continued the olaparib at [address] scans on 11/07/2020 showed new subsegmental atelectasis in the lingula and left lower lobe, but no change in an 8 mm right middle lobe pulmonary nodule or and a 9 mm right hilar lymph node. There was possible tumor recurrence noted in the right pelvis with a slightly lobulated soft tissue nodule measuring 2.4 cm adjacent to the ureteral stent and with possible invasion into the right psoas muscle. There were no other findings suspicious for disease progression. She continued treatment with olaparib 200 mg twice daily. On 12/10/2000 she was seen in the emergency room with abdominal pain. Her CT abdomen/pelvis showed interval moderate dilatation of multiple small bowel loops and prominent fluid distention of the stomach suggesting possible small bowel obstruction, though no obvious transition zone was evident. There was continued atrophy of the right kidney but interval worsening of mild right hydronephrosis. There was good positioning of the right ureteral stent. Given the treatment options for Ms. Carrasco are limited at best. Next generation sequencing with [facility] was requested on her pathology from 07/21/2019. This identified BRCA 1 ([id number] FS*1) and TMB > 10 Muts/Mb indicating opportunity for FDA approved therapeutic options to include Lynparza and Rubraca and for the tumor mutational burden pembrolizumab was listed as an option. There was great concern with her poor lung status now and using immunotherapy with Ms. Carrasco but it is an option. She is here today to discuss treatment options. She remains on the reduced dose of Lynparza. She has multiple complaints, none of which are new or worse. However she has seen Dr. Cooper on Wednesday for stent replacement. She states she has been having urinary frequency and she did this once before when her tumor was worse and she ended up having a self cath. I did speak with Arielle eKnnedy in urology who felt that once the stent was replaced those sensations would probably improve. Victorina will follow up with them on Wednesday for further instruction. We discussed her foundation 1 findings and the implications. She is still aware that her disease is incurable and this is palliative care. She states she is still interested in actively pursuing treatment. She requested a trial of increasing the Lynparza back to 300 mg twice daily. After discussing this with Dr. Lynne this is our current plan of care. Ms. Carrasco continues to have chronic constipation but states is no worse than her normal. She describes no new pain. She continues to have shortness of breath and wears oxygen continuously. Her ECOG is 2. Past Medical History: Chronic back pain (secondary to ruptured discs) Depression Peripheral neuropathy in 2008 Hypothyroidism in 2007 Chronic obstructive pulmonary disease in 2006 Anxiety in 2002 Coronary artery disease in 2002 Hypercholesterolemia in 2002 Hypertension in 2002 Gastroesophageal reflux disease in 2002 Past Surgical History: Stent placement in the ureter Covid vaccine #1 in 2020 Flu vaccine in 2019 Flu vaccine in 2018 - left deltoid Prevnar 13 in 2019 - right deltoid Pneumovax in 2015 Flu vaccine in 2015 Right subclavian Port in 2015 Flu vaccine in 2014 Flu in 2013 COLONOSCOPY in 2007 Appendectomy in 2002 Hysterectomy in 2002 - WITH BSO PORT PLACEMENT in 2002 Tubal ligation in 1991 Tonsillectomy in 1964 Allergies: Carboplatin Medications: Duragesic-100 2 Patch(es) (of 100 mcg) Patch 72 Hr Transdermal q 3 days Enalapril Maleate 1 (20 mg) Tablet Oral b.i.d. Lactulose Solution Oral PRN Levothroid 1 (50 mcg) Tablet Oral daily Lyrica 1 Capsule (of 75 mg) Oral b.i.d. Magnesium 1 Capsule Oral daily Metoclopramide HCl (10 mg) Tablet Oral four times a day MiraLax Pack Oral daily Mucinex Maximum Strength 1 Tablet (of 1200 mg) Tablet SR 12 HR Oral b.i.d. PRN NexIUM 1 (40 mg) Capsule Delayed Release Oral b.i.d. Norvasc 1 Tablet (of 5 mg) Oral daily OxyCODONE HCl 1 (20 mg) Tablet Oral q 4 hours PRN Potassium 1 Tablet (of 100 mg) Oral daily Proventil HFA Aerosol, solution Inhalation PRN Soma 1 (350 mg) Tablet Oral t.i.d. TRAZADONE 1 (100 mg) Tablet Oral at bedtime Venlafaxine HCl 1 (150 mg) Capsule SR 24 HR Oral daily Xarelto 1 Tablet (of 10 mg) Oral daily Zofran 1 Tablet (of 4 mg) Oral q 4 hours Family History: Ms. Carrasco's mother at age 59: cancer history consists of Breast cancer at age 28 while other medical history includes ND at age 57 (cause of ). Ms. Carrasco's father is alive. Ms. Carrasco does not know if her maternal grandmother is alive. She does not know if her maternal grandfather is alive. Ms. Carrasco has 1 brother who is alive. Social History: Ms. Carrasco is and she is an on disability. She is an occasional smoker who has smoked 0.5 packs/day for 31 years. She is a former drinker. She has indicated exposure to the following products: cigarettes. Ms. Carrasco reports the following support systems: lives with spouse, significant other, family, or friends, lives in own house, supportive family/friends willing to assist with needs, and adequate transportation available for expected visits. Her diet consists of regular meals. She indicates her activity level as: daily activities. she smokes 5 cigaretter per day and has an e cigarette. Review Of Symptoms: <See Above> Vital Signs: Performed on March 05, 2021 13:19 Height - 67.00 in Weight - 123.4 lbs (LOW) BSA - 1.65 sq.m BMI - 19.33 Temperature - 98.1 F (LOW) Pulse - 85 /min Respiration - 17 /min BP - 206/98 mm(hg) (HIGH) O2 Sat - 95 % (LOW) Pain - 8,2 - Ambulatory/capable of all self-care, unable to perform any work activities. Up and about more than 50% of waking hours. (ECOG) Physical Examination: Constitutional Alert, oriented, no acute distress. Skin pink, warm and dry. Frail in appearance but she has taken care in her appearance. Head Normocephalic; atraumatic. Eyes Conjunctivae and sclerae are clear and without icterus. Neck Supple without masses or thyromegaly. No jugular venous distension. Hematologic/Lymphatic No petechiae or purpura. No tender or palpable lymph nodes in the cervical, supraclavicular areas. Respiratory Lungs are diminished bilaterally to auscultation without wheezing. Cardiovascular Regular rate and rhythm of heart without murmurs,clicks, gallops or rubs. Chest Chest is symmetric without chest wall deformities. Venous access device insertion site is unremarkable. Abdomen Non-tender, non-distended, no masses, ascites. Back/Spine Non-tender to palpation. Extremities No visible deformities, no cyanosis, clubbing. No lower extremity edema. Musculoskeletal No tenderness or swelling, normal range of motion without obvious weakness. Integumentary No rashes or lesions. Neurologic No sensory or motor deficits, normal cerebellar function, normal gait. Psychiatric Alert and oriented times three. Coherent speech. Verbalizes understanding of our discussions today. Laboratory:Test performed on March 05, 2021 14:30 Ferritin 155 ng/mL Iron 46 mcg/dL Sodium 134 mmol/L TSH 2.55 uIU/mL Iron Binding Capacity (TIBC) 245 mcg/dl Potassium 4.1 mmol/L % Iron Saturation 18.7 % Chloride 93 mmol/L CO2 28 mmol/L UIBC 199 mcg/dL Anion Gap 17.1 BUN 8 mg/dL Creatinine 0.6 mg/dL Cr Clearance (Est) 85.9000 mL/min eGFR 101.3 mL/min Glucose 70 mg/dL Osmolality - Calculated 275 mOsm/kg Calcium 8.8 mg/dL Protein, Total 7.4 g/dL Albumin 4.7 g/dL Globulin 2.7 g/dL Bilirubin, Total 0.4 mg/dL ALT (SGPT) 9 U/L AST (SGOT) 16 U/L Alkaline Phosphatase 76 IU/L WBC 5.0 10 3/uL RBC 4.25 10 6/uL HGB 14.1 g/dL HCT 41.8 % MCV 98.4 fL MCH 33.2 pg MCHC 33.7 g/dL RDW 13.4 % Platelet Count 115 10 3/cmm MPV 10.3 fL Neutrophils 3.39 10 3/uL Lymphocytes 1.1 10 3/uL Monocytes 0.4 10 3/uL Eosinophils 0.1 10 3/uL Basophils 0.0 10 3/uL Neutrophil % 67.3 % Lymphocyte % 21.6 % Monocyte % 7.7 % Eosinophil % 2.4 % Basophils % 0.6 % NRBC % 0 % CA-125 15.0 U/mL Impression: 1. Recurrent ovarian cancer. By next generation sequencing her tumor was noted to harbor a BRCA1 mutation, presumed somatic, as her original testing for germline BRCA was negative. Her tumor also was tested and found to be MSI stable with intact mismatch repair proteins. 2. She had optimal debulking following initial diagnosis in May 2003, and she received adjuvant chemotherapy with 6 cycles of carboplatin/paclitaxel. 3. She had further treatment with 4 cycles of carboplatin/paclitaxel in combination with Avastin following documented recurrence in July 2008. 4. She had restarted chemotherapy with carboplatin/gemcitabine in February 2013 following a surgical debulking procedure for disease progression with associated bowel obstruction. Her treatment was subsequently modified to single agent gemcitabine as a result of a hypersensitivity reaction to carboplatin. She had some response to the chemotherapy. As of January 2014 her disease was felt to be stable, and she was then observed off treatment. 5.. In May 2015 she restarted chemotherapy with weekly paclitaxel. Following her cycle 18 treatment on 09/17/2016 she had another hospital admission for pneumonia. As her disease had been stable and her performance status had been declining, her chemotherapy at that point was put on hold. 6. In December 2019 she began further treatment with olaparib after she was confirmed to have disease progression in the right pelvis with associated right hydronephrosis. Her other medical illnesses include: 7. Hypertension. 8. Hyperlipidemia. 9. GERD. 10. COPD. 11. Degenerative disease of the spine with chronic back pain. 12. Chronic anxiety/depression. Plan/Problems Addressed at this Visit: 1. Recurrent ovarian cancer. In November 2019 she had evidence of disease progression with CT evidence of right pelvic mass with ureteral obstruction and hydronephrosis, requiring placement of right ureteral stent. In December 2019 she began a trial of therapy with olaparib, initially at 300 mg twice daily. She did show a very good response by follow-up CT scan and by CA-125 level, but she subsequently did require a dose reduction to 200 mg twice daily. During the past several months she has had gradual worsening of abdominal pain. She has CT findings which are suspicious for partial or developing small bowel obstruction. On my review of the October study with the radiologist, there did appear to be significant worsening in the appearance of the bowel compared to previous studies. There was no obvious recurrence of mass associated with the right hydronephrosis, but that area was difficult to visualize. Her CA-125 level now is up slightly. She continues to have significant abdominal pain, and she has very marginal performance status. Overall, her clinical presentation appears consistent with gradual progression of her ovarian cancer. Her further treatment options unfortunately are very limited, particularly with her significant residual neuropathy. Given the treatment options for Ms. Carrasco are limited at best. Next generation sequencing with [facility] was requested on her pathology from 07/21/2019. This identified BRCA 1 ([id number] FS*1) and TMB > 10 Muts/Mb indicating opportunity for FDA approved therapeutic options to include Lynparza and Rubraca and for the tumor mutational burden pembrolizumab was listed as an option. There was great concern with her poor lung status now and using immunotherapy with Ms. Carrasco but it is an option. A. Increase Lynparza to 300 mg twice daily???new prescription will be sent. B. Supportive care as needed. C. I have requested a CBC, CMP, TSH, CA-125, vitamin D and iron studies for evaluation of her advanced ovarian cancer as well as fatigue and history of iron deficiency in the past. Her last labs here were January 13, 2021. Her hemoglobin had started dropping at that time from 14.5 in October to 13.4 in December. 2. Chronic pain management with DJD of the spine/Persistent neuropathy A. Currently managed with fentanyl 100 mcg patch every 72 hours and oxycodone immediate release 30 mg 1 or 2 every 4 hours as needed. B. her neuropathy is managed with Soma and Lyricia. 3. She has severe underlying COPD. She is on continuous oxygen. 4. Hypertension. A. She has acute elevation of her blood pressure today which I suspect is related to anxiety and pain. Initially her blood pressure was aborted at 206/98. She admits she did not take her blood pressure medicine this morning. Her recheck blood pressure was 175/90. She was encouraged to take her blood pressure as soon as she got home and we may need to increase the amlodipine as needed if she has persistent elevation of her blood pressure. Her last blood pressure here on January 13, 2021 was 145/91. Her heart rate is stable at 85. 5. Follow-up plan A. She has a pre-existing appointment next week so we will plan to keep this week in follow-up to see how she is doing on the increased Lynparza if she is able to increase it by then. B. Mrs. Carrasco will see Dr. Cooper as scheduled on Wednesday for stent change. C. She is instructed to contact us in interim should questions or problems arise. Total time spent on Ms. Carrasco's care today and review of records prior to her visit. Discussion of her foundation 1 report and plan of care with Dr. Lynne as well as Mrs. Carrasco along with answering her questions and extensive discussion and post visit documentation was 60 minutes. Signed By: Daniella Jacobsen-, [facility] Ravi Lynne MD <<Signature on File>>
[2021-03-13 15:53] LABS: Vit D 1,25 (Oh)2, Total 47 pg/mL (18-72); Vit D2 1,25 (Oh)2 <8 pg/mL; Vit D3 1,25 (Oh)2 47 pg/mL
== END 2021-03-05 12:57 | disposition home or self-care (01) ==
PROVIDERS: Visit Provider Nurse Practitioner
DX: C56.1 Malignant neoplasm of right ovary (principal); C56.2 Malignant neoplasm of left ovary; G62.0 Drug-induced polyneuropathy; T45.1X5A Adverse effect of antineoplastic and immunosuppressive drugs, initial encounter; N13.30 Unspecified hydronephrosis; E55.9 Vitamin D deficiency, unspecified; D50.9 Iron deficiency anemia, unspecified; E03.9 Hypothyroidism, unspecified; I10 Essential (primary) hypertension; E78.5 Hyperlipidemia, unspecified; K21.9 Gastro-esophageal reflux disease without esophagitis; J44.9 Chronic obstructive pulmonary disease, unspecified; M47.9 Spondylosis, unspecified; F41.9 Anxiety disorder, unspecified; F32.9 Major depressive disorder, single episode, unspecified; Z79.899 Other long term (current) drug therapy
CPT/HCPCS: 36591; 80053; 82652; 82728; 83540; 83550; 84443; 85025; 86304; 99215

== ENCOUNTER 2021-03-10 10:31 | Day surgery (SDC) | payer MEDICARE, OTHER, SELFPAY ==
[2021-03-07 12:46] VITALS: BMI 19.1
[2021-03-10] VITALS (11 sets, daily range): BP systolic 154–175; BP diastolic 83–105; PULSE 74–99; RESP 16–18; TEMP 36.1–36.8; O2SAT 92–97
[2021-03-10] MEDS: sodium chloride 0.9% 1,000 ML 30 ML IV (11:22)
--- NOTE | 2021-03-10 11:25 | ANES.PREANE2 ---
Pre-Anesthetic Assessment Pre-Anesthetic Assessment: Height/Weight: Height 1.7 m Weight 55.338 kg Temp Pulse Resp BP Pulse Ox 98.3 F 84 18 154/105 94 03/10/21 10:59 03/10/21 10:59 03/10/21 10:59 03/10/21 10:59 03/10/21 10:59 Preop Diagnosis: Extrinsic ureteral obstruction, chronic stent Proposed Procedure: Operation Date: 03/10/21 12:00 Proposed Procedures p Cystoscopy 45606 61446 N13.5(Not Applicable) - Jake Cooper MD s Ureteral Stent Exchange(Right) - Jake Cooper MD s possible ESWL(Not Applicable) - Jake Cooper MD Familial anesthetic complications: None Was Beta Magdalena taken within 24 hours: Yes Was Clonidine taken within 24 hours: N/A Last intake: Intake black coffee 629 Last Liquid Date 03/09/21 Last Solid Date 03/09/21 Social: Social History: Tobacco and No alcohol Exam: Pre-Anes Outpt Exam: alert, oriented x 3 and regular rate & rhythm Additional Exam Findings (including area of procedure): coarse breath sounds b'/l Airway: Cervical ROM: WNL MP: 2 Dentition: Other (poor dentition, 6 teeth left) Pulmonary: Pulmonary: COPD (2 l nc at nighit and during day prn) CV/HEM: CV/HEM: HTN GI: GI: GERD Metabolic: Metabolic: Thyroid Musc/skel: Musc/skel: Lower Back Pain Anesthetic Plan: ASA status: 4 Anesthesia: General Risk of > 500 ml blood loss (7ml/kg in children): No Meds/Allergies Current Medications: Current Medications Generic Name Dose Route Start Last Admin Trade Name Freq PRN Reason Stop Dose Admin Sodium Chloride 1,000 mls @ 30 ml s/hr 03/10/21 10:45 03/10/21 11:22 Sodium Chloride 0.9% IV 03/11/21 10:44 30 mls/hr .Q24H MORRIS Administration PFSH Anesthesia PFSH: Medical History Extrinsic ureteral obstruction Hydronephrosis, right Ovarian cancer on right Pelvic pain in female Recurrent UTI Secondary malignant neoplasm of other specified sites Surgical History History of hysterectomy with bilateral oophorectomy History of right hemicolectomy Family History Mother , at age 59 Cancer breast Myocardial infarction (lateral wall) Father Cancer prostate cancer Pacemaker Other CAD (coronary artery disease) Hypertension Social History Smoking and tobacco status: current every day smoker Alcohol intake: never Adopted: No Caregiver/support person: No Lives independently: No Household members: spouse Marital status: Current occupational status: disabled History of recent travel: No Female Reproductive History: Date of last menstrual period: 12/01/19 Data Anesthesia Cardiac Studies: No Data to Display
--- NOTE | 2021-03-10 12:10 | P.HPUD_ITS ---
Surgery/Procedure H&P Update DATE OF PROCEDURE: March 10, 2021 DATE H&P PERFORMED: 02/28/21 H&P UPDATE INFORMATION: I have reviewed H&P completed within last 30 days, I have examined patient prior to procedure, No changes to prior documentation and [place] [facility] [place] indicated PREOP DIAGNOSIS: Extrinsic ureteral obstruction, chronic stent PLANNED PROCEDURE: Operation Date: 03/10/21 12:00 Proposed Procedures p Cystoscopy 47303 [id number] N13.5(Not Applicable) - Jake Cooper MD s Ureteral Stent Exchange(Right) - Jake Cooper MD s possible ESWL(Not Applicable) - Jake Cooper MD
[2021-03-10] MEDS: levofloxacin-dextrose 5 % 500 MG/100 ML PREMIX 100 MG IV (12:12)
--- NOTE | 2021-03-10 12:57 | P.OP_ITS ---
Operative Report Date of procedure: March 10, 2021 Pre-op Diagnosis: Extrinsic ureteral obstruction, chronic stent Post-op diagnosis: same Procedure Done: 1. Extracorporeal shockwave lithotripsy to the proximal curl of the right ureteral stent 2. Right ureteral stent exchange (7 [place] by 26 cm double pigtail without string) Pathology: none sent Surgeon: Kenneth Volleyball Assistant Coach: General Seven, lithotripsy Operations Architect Anesthesia: General Estimated blood loss: None Urine output: Not measured Complications: None Findings: Stent removed after thousand shocks to the proximal removed over a guidewire and exchanged for same size (7 [place] by 26 cm double-pigtail without string) Condition: stable Disposition: PACU Brief History: Ms. 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 She is overdue for her stent change. It was decided to perform ESWL to the proximal aspect to void any chance of traumatic removal especially given her very tenuous state of ureteral patency and the inability to pass a wire next to the stent. Procedure: After routine preoperative evaluation examination and obtaining of informed consent she was taken to the operating suite on 03/10/2021 where general anesthe renato was administered without difficulty after appropriate timeout was performed, SCDs confirmed to be functioning, preoperative antibiotics administered, beta- priya protocol confirmed. Prepped and draped in the usual sterile fashion in dorsolithotomy position paying careful attention to avoiding pressure points. The shock head was positioned anteriorly and the proximal curl in the right ureteral stent was brought into the focal point utilizing biplanar fluoroscopy. Shockwave was initiated an intensity of 1 advanced an intensity of 4 with a several minute pause after approximately 300 shocks. The total of 1000 shocks were administered. Shockwave therapy was paused. The 21 Pal[place] cystoscope was introduced into the urethral meatus under videoscopy. The distal aspect of the stent was grasped with grasping forceps and withdrawn through the urethral meatus and a flexible tip guidewire was advanced without significant difficulty up the right ureteral stent into the upper pole calyx. The stent was removed. No further shockwave was administered. The cystoscope was then backloaded over the guidewire and a 7 [place] by 26 cm double-pigtail stent without string was passed without difficulty over the guidewire through the cystoscope into appropriate position as confirmed via fluoroscopy and cystoscopy. She tolerated the procedure well without complications and was awakened in the operating room and returned to recovery in stable condition. PLANS: 1. Follow-up in about 4 months with a KUB. Schedule stent change shortly thereafter.
--- NOTE | 2021-03-10 13:18 | P.PCN_ITS ---
PACU note PACU note: VSS, Good respiratory effort, report to QUALITY ANALYST/TECHNICAL WRITER Post-Anesthesia Exam: awake
--- NOTE | 2021-03-10 13:18 | PM.PACU ---
PACU note PACU note: VSS, Good respiratory effort, report to BUSINESS SERVICES SALES REPRESENTATIVE Post-Anesthesia Exam: awake
[2021-03-10] MEDS: oxyCODONE 5 mg IR Tab/Cap 20 MG PO (14:20)
--- NOTE | 2021-03-10 17:44 | ANE.PACU2 ---
Inpatient post-anesthesia follow up: Airway intact: Yes Vital signs: Temperature 97.5 F Pulse Rate 78 Respiratory Rate 18 Blood Pressure 165/90 Pulse Oximetry 92 Oxygen Delivery Me thod Nasal Cannula Oxygen Flow Rate 2 Fraction of Inspir ed Oxygen Hydration adequate: Yes Nausea and vomiting: No Pain level: 1 Mental status: Baseline
== END 2021-03-10 14:41 | disposition home or self-care (01) ==
PROVIDERS: Visit Provider Urology
PROC: 0TJB8ZZ Inspection of Bladder, Via Natural or Artificial Opening Endoscopic (ICD-10-PCS; CPT 52000; principal; 2021-03-10 12:00)
PROC: (CPT 50590; 2021-03-10 12:00)
PROC: (CPT 50590; 2021-03-10 12:00)
DX: N20.1 Calculus of ureter (principal); N13.5 Crossing vessel and stricture of ureter without hydronephrosis; J44.9 Chronic obstructive pulmonary disease, unspecified; Z99.81 Dependence on supplemental oxygen; K21.9 Gastro-esophageal reflux disease without esophagitis; Z85.43 Personal history of malignant neoplasm of ovary; F17.210 Nicotine dependence, cigarettes, uncomplicated
CPT/HCPCS: 50590; 52332; 96365; C2625; J0330; J1956; J2405; J2704; J2710; J3010; J3490; J7030; J7611

== ENCOUNTER 2021-04-09 09:52 | Outpatient (CLI) | payer MEDICARE, OTHER, SELFPAY ==
[2021-04-09 10:44] LABS: Basophils % 0.9 %; Eosinophils # 0.1 10^3/uL (0.0-0.8); Eosinophils % 1.9 %; Hematocrit 39.4 % (37.0-47.0); Hemoglobin 13.2 g/dL (11.5-15.3); Lymphocytes # 1.1 10^3/uL (0.8-4.8); Lymphocytes % 24.7 %; Mean Corpuscular HGB Conc 33.5 g/dL (30.0-36.0); Mean Corpuscular Hemoglobin 32.9 pg (28.0-34.0); Mean Corpuscular Volume 98.3 fL (81-99); Mean Platelet Volume 10.3 fL (7.4-10.4); Monocytes # 0.4 10^3/uL (0.2-0.9); Monocytes % 9.1 %; Neutrophils # 2.92 10^3/uL (1.8-7.7); Neutrophils % 63.2 %; Nucleated Red Blood Cells % 0 %; Platelet Count 117 10^3/cmm (130-400); Red Blood Count 4.01 10^6/uL (4.1-5.3); Red Cell Distribution Width 13.4 % (12.1-15.1); White Blood Count 4.6 10^3/uL (4.0-10.0)
[2021-04-09 11:08] LABS: Alanine Aminotransferase 11 U/L (0-33); Albumin Level 4.4 g/dL (3.5-5.2); Alkaline Phosphatase 82 IU/L (35-105); Anion Gap 11.4 (5-19); Aspartate Amino Transferase 16 U/L (0-32); Blood Urea Nitrogen 7 mg/dL (8-23); Carbon Dioxide 32 mmol/L (22-29); Chloride 93 mmol/L (98-107); Globulin 2.3 g/dL (1.3-4.6); Glomerular Filtration Rate 101.3 mL/min (90-130); Glucose 90 mg/dL (65-115); Osmolality Calculated 272 mOsm/kg (285-295); Potassium 4.4 mmol/L (3.5-5.1); Sodium 132 mmol/L (136-145); Total Bilirubin 0.5 mg/dL (0.15-1.2); Total Protein 6.7 g/dL (6.6-8.7)
[2021-04-09 14:15] LABS: CA 125 17.2 U/mL (0-35)
--- NOTE | 2021-04-22 22:21 | ONC FU_ITS ---
[facility] Patient Note Patient: Nisreen Carrasco V Unit #: [id number]: 1960 Dictated By: Daniella JacobsenDate of Visit: Apr 09, 2021 Onc MED Follow-Up/Prog Note Chief Complaint: Ovarian cancer History of Present Illness: Mrs Carrasco is a 60 year-old woman with recurrent ovarian cancer. She had optimal resection with her initial surgery back in May 2003. She had documented recurrence in July 2008, nearly 5 years after completion of adjuvant chemotherapy with 6 cycles of carboplatin/Taxol. She was retreated at that time with carboplatin/Taxol chemotherapy, but in combination with Avastin. Treatment was stopped after 4 cycles because of worsening neuropathy, but she did have a very good clinical response with normalization of the CA-125 level. She was then followed on observation. She did well until July 2012 when she presented with small bowel obstruction. Her Ca-125 level at that point had not increased and the obstruction initially did improve with conservative management. Ultimately, though, she was confirmed to have disease recurrence in the abdomen. She underwent surgery at [facility] in October 2012. At laparotomy there were extensive adhesions in the abdomen, but there was recurrent tumor in the right mid abdomen and right upper quadrant. It was involving the cecum, the mesocolon, and the small bowel mesentery in a multiple twisted mass. There also was periaortic juanita involvement. She underwent right hemicolectomy and primary anastamosis of the bowel with complete resection of the mass. 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 She had gradual recovery from that procedure. In February 2013 she restarted chemotherapy with carboplatin in combination with gemcitabine. She experienced a significant hypersensitivity reaction to the carboplatin with the third cycle of treatment. She then continued chemotherapy with single agent gemcitabine. She experienced significant fatigue and myelosuppression with gemcitabine, even at a reduced dose level. She did not tolerate an attempt at dose escalation. She had some ongoing GI symptoms during this time, but no documented disease progression. She had a followup visit with Dr. David in January 2014. Her disease at that time appeared stable, and it was recommended that she stop chemotherapy again and just go back on observation. By May 2015 she was having significantly more abdominal pain and repeat CT abdomen/pelvis at that point was highly suspicious for recurrent metastatic disease at the site of the ileocolic anastomosis. That study showed no obvious metastatic involvement in the liver and no ascites. In June 2015 she restarted chemotherapy with weekly paclitaxel. She initially was tolerating it pretty well on a day 1/day 8 schedule every 3 weeks. She had presented at day 15 of her third cycle with severe abdominal pain and nausea. Repeat CT scan showed increasing soft tissue at the ileocolic anastomosis. There was a large amount of fecal material proximal to that site, and an area of stenosis was suspected. She did improve, though, with conservative management, and she subsequently was able to continue chemotherapy with weekly paclitaxel. As of November 2015 she had completed 7 cycles of treatment. Her chemotherapy was put on hold after her cycle 8 day 1 treatment due to diarrhea and increased abdominal pain. Abdominal x-rays showed just nonspecific gas pattern in the left abdomen. She had restaging CT abdomen/pelvis again on 01/13/2016. It showed no obstruction and no evidence of disease progression. There was no lymphadenopathy or ascites noted. Her symptoms had subsequently improved, and she did then proceed with her 9th cycle of chemotherapy. Beginning with cycle 10, I did have her change to a day 1/day 15 schedule. She had subsequently tolerated it much better. As of her follow-up visit on 08/06/2016, she appeared stable clinically, and at that point she continued with her 16th cycle of treatment. Her day 15 treatment with that cycle was not administered. She continued treatment with cycle 18 day 1 on 10/01/2016. On 10/06/2016 she was admitted to the hospital with pneumonia. CT pulmonary angiogram at that time showed no evidence of pulmonary emboli. There were widespread tree-in-bud pulmonary parenchymal nodularities and there was evidence of underlying chronic emphysema. There was new hilar or mediastinal lymphadenopathy noted, possibly reactive or neoplastic. Also noted was a superior segment left lower lobe pulmonary nodule measuring 8.4 mm. She did improve on antibiotic therapy, and she was discharged home on 10/10/2016. She had quit smoking just prior to the hospitalization. She did not receive day 15 treatment with that cycle. During subsequent follow-up, it was opted to keep her chemotherapy on hold, as her disease had been very stable. Restaging CT scans of the chest, abdomen, and pelvis on 04/28/2017 showed resolved hilar and mediastinal adenopathy and resolved left lower lobe pulmonary nodule. There was stable appearance of the ileocolic anastomosis. There was no evidence of disease progression. Restaging CT scans of the chest, abdomen, and pelvis on 11/16/2018 showed unchanged medial middle lobe parenchymal opacity measuring 8-9 mm. Lingular and anterior left lower lobe subsegmental atelectasis and/or scarring also appeared unchanged. There was no evidence of disease progression in the chest, abdomen, or pelvis. In February 2019 she had presented with new onset of swelling in the right leg. Venous Doppler of the right leg on 03/09/2019 showed partially occlusive deep vein thrombosis of the superficial femoral vein with thrombus noted to extend into the greater saphenous vein. She began on anticoagulation with apixaban. Restaging CT scans on 03/22/2019 showed stable 8-9 mm pulmonary nodule in the right middle lobe. Right hilar and infrahilar hilar lymph nodes also appeared stable. Moderate right hydronephrosis with right ureterectasis appeared to be new. Slightly prominent right inguinal lymph nodes appeared unchanged. Overall, there was no evidence of disease progression in the chest, abdomen, or pelvis. She continued on observation/expectant management. Her other medical illnesses include hypertension, hypercholesterolemia and gastroesophageal reflux disease. She also has chronic obstructive pulmonary disease and she had a pretty severe episode of pneumonia in December 2008. She had stopped smoking following her hospitalization in September. 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 Other surgeries have been limited to tonsillectomy and tubal ligation. INTERIM HISTORY: In April 2019 a next generation sequencing study was performed on the specimen from her surgical resection in October 2012. It showed presence of a BRCA1 mutation, presumed to be somatic, as her original germline BRCA testing was negative. There were no other actionable mutations identified. Repeat CT abdomen/pelvis on 06/22/2019 showed enlarging soft tissue mass in the right side of the pelvis measuring 3.5 cm. This was noted to be in the area of surgical clips from her prior hysterectomy, and the appearance was felt to be consistent with local recurrence or metastatic adenopathy. The mass was noted to be adjacent to and possibly invading the psoas muscle. There was increasing hydronephrosis of the right kidney. She was referred to Dr. David. On 07/18/2019 she underwent exploratory laparotomy with extensive adhesive lysis and extensive retroperitoneal exploration and debulking of right pelvic/psoas muscle tumor. The tumor was noted to obstruct the right ureter, and the procedure included placement of a right ureteral stent. Pathology showed high-grade carcinoma which was PAX-8 and WT-1 positive. During follow-up she had ongoing problems with urinary tract infection and she continued to have significant pain in the right groin area and lower abdomen. Her repeat CT abdomen/pelvis on 12/12/2019 showed progression of a right pelvic mass compared to the June 2019 study. At that point it measured 5.8 x 3.8 x 6.5 cm and it was noted to encase the right ureter. It was inseparable from the distal small bowel loops and it was noted to abut the right L5-S1 disc space. There was interval placement of right ureteral stent with resolution of right hydronephrosis. With those findings and with the known BRCA mutation, she began a trial of therapy with olaparib 300 mg bid on 12/18/2019. As of her follow-up visit on 02/21/2020 she was still having significant pain in the right lower quadrant area and she also was reporting increased nausea and fatigue. There had been a significant decline in her CA [address] Lynne had suspected that at least some of her symptoms were treatment related. She continued the olaparib, but with the dosage reduced to 200 mg twice daily. Subsequent to that visit she had 2 hospitalizations at [facility] in [place], only by 4 or 5 days. On both occasions she had bowel obstruction which was relieved with conservative management. Dr Lynne had seen her for a follow-up visit on 03/21/2020. She was beginning to feel better. There was further decline in the CA 125 level to 6.7 U/mL compared to 32.8 U/mL on 12/26/2019. Restaging CT of the abdomen/pelvis on 05/22/2020 showed resolution of the previously described right lower quadrant pelvic mass. A right double-J ureteral stent was noted to be in place. There was right renal cortical atrophy. There was no hydronephrosis. There was no adenopathy noted in the abdomen or pelvis. There was moderate constipation. She continued the olaparib at [address] scans on 11/07/2020 showed new subsegmental atelectasis in the lingula and left lower lobe, but no change in an 8 mm right middle lobe pulmonary nodule or and a 9 mm right hilar lymph node. There was possible tumor recurrence noted in the right pelvis with a slightly lobulated soft tissue nodule measuring 2.4 cm adjacent to the ureteral stent and with possible invasion into the right psoas muscle. There were no other findings suspicious for disease progression. She continued treatment with olaparib 200 mg twice daily. On 12/10/2000 she was seen in the emergency room with abdominal pain. Her CT abdomen/pelvis showed interval moderate dilatation of multiple small bowel loops and prominent fluid distention of the stomach suggesting possible small bowel obstruction, though no obvious transition zone was evident. There was continued atrophy of the right kidney but interval worsening of mild right hydronephrosis. There was good positioning of the right ureteral stent. Given the treatment options for Ms. Carrasco are limited at best. Next generation sequencing with [facility] was requested on her pathology from 07/21/2019. This identified BRCA 1 ([id number] FS*1) and TMB > 10 Muts/Mb indicating opportunity for FDA approved therapeutic options to include Lynparza and Rubraca and for the tumor mutational burden pembrolizumab was listed as an option. There was great concern with her poor lung status now and using immunotherapy with Ms. Carrasco but it is an option. Mrs Carrasco presented for followup and discussion of treatment options on 03/05/2021. She remaind on the reduced dose of Lynparza. She had multiple complaints, none of which are new or worse. However she had seen Dr. Cooper on Wednesday for stent replacement. She stated she has been having urinary frequency and she did this once before when her tumor was worse and she ended up having to self cath. I did speak with Arielle Kennedy NP in urology who felt that once the stent was replaced those sensations would probably improve. Victorina was instructed to follow up with them as scheduled for further instruction. We discussed her Foundation 1 findings and the implications. She is still aware that her disease is incurable and this is palliative care. She states she is still interested in actively pursuing treatment. We did agree on a trial of changing the Lynparza back to 300 mg twice daily. She is here today for follow-up after increasing the Lynparza 300 mg twice daily. She reports overall she is tolerating it well. She has no new concerns today. She continues to feel weak in general. She continues to be washed out. She continues to smoke. She denies any fever or chills. She denies any nausea or vomiting. She states she always has shortness of breath but does not think it is any worse than what her normal has been. Her ECOG is 2. She has chronic constipation which overall is unchanged. Her constipation is managed with multiple bowel regimens, intermittent hydration and constipation agents when warranted. Her ECOG is 2. Past Medical History: Chronic back pain (secondary to ruptured discs) Depression Peripheral neuropathy in 2008 Hypothyroidism in 2007 Chronic obstructive pulmonary disease in 2006 Anxiety in 2002 Coronary artery disease in 2002 Hypercholesterolemia in 2002 Hypertension in 2002 Gastroesophageal reflux disease in 2002 Past Surgical History: Stent placement in the ureter Covid vaccine #1 in 2020 Flu vaccine in 2019 Flu vaccine in 2019 - left deltoid Prevnar 13 in 2019 - right deltoid Pneumovax in 2015 Flu vaccine in 2015 Right subclavian Port in 2016 Flu vaccine in 2014 Flu in 2013 COLONOSCOPY in 2007 Appendectomy in 2002 Hysterectomy in 2002 - WITH BSO PORT PLACEMENT in 2002 Tubal ligation in 1991 Tonsillectomy in 1964 Allergies: Carboplatin Medications: Duragesic-100 2 Patch(es) (of 100 mcg) Patch 72 Hr Transdermal q 3 days Enalapril Maleate 1 (20 mg) Tablet Oral b.i.d. Lactulose Solution Oral PRN Levothroid 1 (50 mcg) Tablet Oral daily Lyrica 1 Capsule (of 75 mg) Oral b.i.d. Magnesium 1 Capsule Oral daily Metoclopramide HCl (10 mg) Tablet Oral four times a day MiraLax Pack Oral daily Mucinex Maximum Strength 1 Tablet (of 1200 mg) Tablet SR 12 HR Oral b.i.d. PRN NexIUM 1 (40 mg) Capsule Delayed Release Oral b.i.d. Norvasc 1 Tablet (of 5 mg) Oral daily OxyCODONE HCl 1 (20 mg) Tablet Oral q 4 hours PRN Potassium 1 Tablet (of 100 mg) Oral daily Proventil HFA Aerosol, solution Inhalation PRN Soma 1 (350 mg) Tablet Oral t.i.d. TRAZADONE 1 (100 mg) Tablet Oral at bedtime Venlafaxine HCl 1 (150 mg) Capsule SR 24 HR Oral daily Xarelto 1 Tablet (of 10 mg) Oral daily Zofran 1 Tablet (of 4 mg) Oral q 4 hours Family History: Ms. Carrasco's mother at age 59: cancer history consists of Breast cancer at age 28 while other medical history includes [place] at age 57 (cause of ). Ms. Carrasco's father is alive. Ms. Carrasco does not know if her maternal grandmother is alive. She does not know if her maternal grandfather is alive. Ms. Carrasco has 1 brother who is alive. Social History: Ms. Carrasco is and she is an on disability. She is an occasional smoker who has smoked 0.5 packs/day for 31 years. She is a former drinker. She has indicated exposure to the following products: cigarettes. Ms. Carrasco reports the following support systems: lives with spouse, significant other, family, or friends, lives in own house, supportive family/friends willing to assist with needs, and adequate transportation available for expected visits. Her diet consists of regular meals. She indicates her activity level as: daily activities. she smokes 5 cigaretter per day and has an e cigarette. Review Of Symptoms: <See Above> Vital Signs: Performed on Apr 09, 2021 12:08 Height - 67.00 in Weight - 126.2 lbs (HIGH) BSA - 1.66 sq.m BMI - 19.77 Temperature - 97.6 F (LOW) Pulse - 84 /min Respiration - 16 /min BP - 122/86 mm(hg) O2 Sat - 92 % (LOW) Pain - 8,2 - Ambulatory/capable of all self-care, unable to perform any work activities. Up and about more than 50% of waking hours. (ECOG) Physical Examination: Constitutional Alert, oriented, no acute distress. Skin pink, warm and dry. Frail in appearance but she has taken care in her appearance. Head Normocephalic; atraumatic. Eyes Conjunctivae and sclerae are clear and without icterus. ENMT Sinuses are nontender. No oral exudates, ulcers, masses, or mucositis. Oropharynx clear. Neck Hematologic/Lymphatic No petechiae or purpura. No tender or palpable lymph nodes in the cervical, supraclavicular areas. Respiratory Lungs are diminished bilaterally to auscultation without wheezing. Cardiovascular Regular rate and rhythm of heart without murmurs,clicks, gallops or rubs. Chest Chest is symmetric without chest wall deformities. Venous access device insertion site is unremarkable. Abdomen Non-tender, non-distended, no masses, ascites. Back/Spine Non-tender to palpation. Extremities No visible deformities, no cyanosis, clubbing. No lower extremity edema. Musculoskeletal No tenderness or swelling, normal range of motion without obvious weakness. Integumentary No rashes or lesions. Neurologic No sensory or motor deficits, normal cerebellar function, normal gait. Psychiatric Alert and oriented times three. Coherent speech. Verbalizes understanding of our discussions today. Laboratory:Test performed on Apr 09, 2021 10:05 Sodium 132 mmol/L Potassium 4.4 mmol/L Chloride 93 mmol/L CO2 32 mmol/L Anion Gap 11.4 BUN 7 mg/dL Creatinine 0.6 mg/dL Cr Clearance (Est) 87.8500 mL/min eGFR 101.3 mL/min Glucose 90 mg/dL Osmolality - Calculated 272 mOsm/kg Calcium 9.0 mg/dL Protein, Total 6.7 g/dL Albumin 4.4 g/dL Globulin 2.3 g/dL Bilirubin, Total 0.5 mg/dL ALT (SGPT) 11 U/L AST (SGOT) 16 U/L Alkaline Phosphatase 82 IU/L WBC 4.6 10 3/uL RBC 4.01 10 6/uL HGB 13.2 g/dL HCT 39.4 % MCV 98.3 fL MCH 32.9 pg MCHC 33.5 g/dL RDW 13.4 % Platelet Count 117 10 3/cmm MPV 10.3 fL Neutrophils 2.92 10 3/uL Lymphocytes 1.1 10 3/uL Monocytes 0.4 10 3/uL Eosinophils 0.1 10 3/uL Basophils 0.0 10 3/uL Neutrophil % 63.2 % Lymphocyte % 24.7 % Monocyte % 9.1 % Eosinophil % 1.9 % Basophils % 0.9 % NRBC % 0 % CA-125 17.2 U/mL Test performed on March 05, 2021 14:30 Ferritin 155 ng/mL Iron 46 mcg/dL TSH 2.55 uIU/mL Iron Binding Capacity (TIBC) 245 mcg/dl % Iron Saturation 18.7 % UIBC 199 mcg/dL Test performed on Jan 13, 2021 11:15 Ua Color Yellow Ua Appearance Clear Ua Glucose Norm Ua Bilirubin Neg Ua Ketones Negative Ua Specific [place] 1.010 Ua Blood Neg Ua pH 7 Ua Protein Neg Ua Nitrites Negative Ua Leukocyte Esterase Negative Impression: 1. Recurrent ovarian cancer. By next generation sequencing her tumor was noted to harbor a BRCA1 mutation, presumed somatic, as her original testing for germline BRCA was negative. Her tumor also was tested and found to be MSI stable with intact mismatch repair proteins. 2. She had optimal debulking following initial diagnosis in May 2003, and she received adjuvant chemotherapy with 6 cycles of carboplatin/paclitaxel. 3. She had further treatment with 4 cycles of carboplatin/paclitaxel in combination with Avastin following documented recurrence in July 2008. 4. She had restarted chemotherapy with carboplatin/gemcitabine in February 2013 following a surgical debulking procedure for disease progression with associated bowel obstruction. Her treatment was subsequently modified to single agent gemcitabine as a result of a hypersensitivity reaction to carboplatin. She had some response to the chemotherapy. As of January 2014 her disease was felt to be stable, and she was then observed off treatment. 5.. In May 2015 she restarted chemotherapy with weekly paclitaxel. Following her cycle 18 treatment on 09/17/2016 she had another hospital admission for pneumonia. As her disease had been stable and her performance status had been declining, her chemotherapy at that point was put on hold. 6. In December 2019 she began further treatment with olaparib after she was confirmed to have disease progression in the right pelvis with associated right hydronephrosis. Her other medical illnesses include: 7. Hypertension. 8. Hyperlipidemia. 9. GERD. 10. COPD. 11. Degenerative disease of the spine with chronic back pain. 12. Chronic anxiety/depression. Plan/Problems Addressed at this Visit: 1. Recurrent ovarian cancer. In November 2019 she had evidence of disease progression with CT evidence of right pelvic mass with ureteral obstruction and hydronephrosis, requiring placement of right ureteral stent. In December 2019 she began a trial of therapy with olaparib, initially at 300 mg twice daily. She did show a very good response by follow-up CT scan and by CA-125 level, but she subsequently did require a dose reduction to 200 mg twice daily. During the past several months she has had gradual worsening of abdominal pain. She has CT findings which are suspicious for partial or developing small bowel obstruction. On my review of the October study with the radiologist, there did appear to be significant worsening in the appearance of the bowel compared to previous studies. There was no obvious recurrence of mass associated with the right hydronephrosis, but that area was difficult to visualize. Her CA-125 level now is up slightly. She continues to have significant abdominal pain, and she has very marginal performance status. Overall, her clinical presentation appears consistent with gradual progression of her ovarian cancer. Her further treatment options unfortunately are very limited, particularly with her significant residual neuropathy. Given the treatment options for Ms. Carrasco are limited at best. Next generation sequencing with [facility] was requested on her pathology from 07/21/2019. This identified BRCA 1 ([id number] FS*1) and TMB > 10 Muts/Mb indicating opportunity for FDA approved therapeutic options to include Lynparza and Rubraca and for the tumor mutational burden pembrolizumab was listed as an option. There was great concern with her poor lung status now and using immunotherapy with Ms. Carrasco but it is an option. A. Continue Lynparza 300 mg twice daily. B. Supportive care as needed. C. Today's labs reviewed in detail discussed with Ms. Carrasco and a copy was given to her. WBC 4.6, hemoglobin 13.2, platelets 117,000 which is stable. ANC is 2920. Creatinine 0.6 random glucose 90 potassium 4.4 and LFTs are normal. Her last Ca1 25 reported on March 05, 2021 was 15.0. Her result from today's lab is pending. Her weight is stable today at 126.2. Refill request. She does not let the triage nurse know that she needs refills but yet discussed this during our visit time today. She needs refills for Effexor, trazodone, Nexium and Synthroid to [facility] pharmacy. She needs written prescriptions for oxycodone and fentanyl patch. She presents with a long list. 2. Chronic pain management with DJD of the spine/Persistent neuropathy A. Currently managed with fentanyl 100 mcg patch every 72 hours and oxycodone immediate release 30 mg 1 or 2 every 4 hours as needed. She is requesting refills today and these will be obtained per Dr. Lynne's written authorization. B. her neuropathy is managed with Soma and Lyricia. 3. She has severe underlying COPD. She is on continuous oxygen. 4. Hypertension. A. She had acute elevation of her blood pressure in February 2021 which was suspected to be related to anxiety and pain. Initially her blood pressure was aborted at 206/98. She had not taken her blood pressure medicine that morning. Her recheck blood pressure was 175/90. She was encouraged to take her blood pressure as soon as she got home and we may need to increase the amlodipine as needed if she has persistent elevation of her blood pressure. Her last blood pressure here on January 13, 2021 was 145/91. Her heart rate is stable at 85. 5. Follow-up plan A. Followup in 3 weeks with CBC, CMP and CA-125. B. Mrs. Carrasco has seenDr. Cooper stent change. C. She was instructed to contact us in interim should questions or problems arise. Total time spent on Ms. Carrasco's care today and review of records prior to her visit. Discussion of her foundation 1 report and plan of care with Dr. Lynne as well as Mrs. Carrasco along with answering her questions and extensive discussion and post visit documentation was 60 minutes. Signed By: Piter [email or web address]. <<Signature on File>>
== END 2021-04-09 09:53 | disposition home or self-care (01) ==
PROVIDERS: PCP Internal Medicine Medical Oncology; Visit Provider Nurse Practitioner
DX: C56.9 Malignant neoplasm of unspecified ovary (principal); I10 Essential (primary) hypertension; E78.5 Hyperlipidemia, unspecified; K21.9 Gastro-esophageal reflux disease without esophagitis; J44.9 Chronic obstructive pulmonary disease, unspecified; G89.29 Other chronic pain; G62.9 Polyneuropathy, unspecified; M47.9 Spondylosis, unspecified; F41.9 Anxiety disorder, unspecified; F32.9 Major depressive disorder, single episode, unspecified; Z92.21 Personal history of antineoplastic chemotherapy; Z99.81 Dependence on supplemental oxygen; Z79.899 Other long term (current) drug therapy
CPT/HCPCS: 36415; 36591; 80053; 85025; 86304; 99214

== ENCOUNTER 2021-05-28 14:15 | Outpatient (CLI) | payer MEDICARE, OTHER, SELFPAY ==
[2021-05-28 15:02] LABS: Basophils % 0.9 %; Eosinophils # 0.1 10^3/uL (0.0-0.8); Eosinophils % 2.3 %; Hematocrit 35.5 % (37.0-47.0); Hemoglobin 12.1 g/dL (11.5-15.3); Lymphocytes # 1.6 10^3/uL (0.8-4.8); Lymphocytes % 36.7 %; Mean Corpuscular HGB Conc 34.1 g/dL (30.0-36.0); Mean Corpuscular Hemoglobin 33.8 pg (28.0-34.0); Mean Corpuscular Volume 99.2 fL (81-99); Mean Platelet Volume 9.2 fL (7.4-10.4); Monocytes # 0.4 10^3/uL (0.2-0.9); Monocytes % 8.5 %; Neutrophils # 2.24 10^3/uL (1.8-7.7); Neutrophils % 51.4 %; Nucleated Red Blood Cells % 0 %; Platelet Count 128 10^3/cmm (130-400); Red Blood Count 3.58 10^6/uL (4.1-5.3); Red Cell Distribution Width 14.5 % (12.1-15.1); White Blood Count 4.4 10^3/uL (4.0-10.0)
[2021-05-28 15:58] LABS: Alanine Aminotransferase 8 U/L (0-33); Albumin Level 4.2 g/dL (3.5-5.2); Alkaline Phosphatase 74 IU/L (35-105); Anion Gap 9.7 (5-19); Aspartate Amino Transferase 16 U/L (0-32); Blood Urea Nitrogen 9 mg/dL (8-23); CA 125 15.3 U/mL (0-35); Calcium 8.6 mg/dL (8.5-10.5); Carbon Dioxide 31 mmol/L (22-29); Chloride 90 mmol/L (98-107); Globulin 2.5 g/dL (1.3-4.6); Glomerular Filtration Rate 101.3 mL/min (90-130); Glucose 76 mg/dL (65-115); Osmolality Calculated 259 mOsm/kg (285-295); Potassium 4.7 mmol/L (3.5-5.1); Sodium 126 mmol/L (136-145); Total Bilirubin 0.3 mg/dL (0.15-1.2); Total Protein 6.7 g/dL (6.6-8.7)
--- NOTE | 2021-05-29 19:20 | ONC FU_ITS ---
Dr. Lynne Patient Follow-Up Note Patient: Nisreen Carrasco V Unit #: [id number]: [id number] Dicatated By: Ravi Lynne M.D.Date of Visit:May 28, 2021 Onc Med Follow-up/Prog Note Chief Complaint: Ovarian cancer History of Present Illness: This is a 60 year-old woman with recurrent ovarian cancer. She had optimal resection with her initial surgery back in May 2003. She had documented recurrence in July 2008, nearly 5 years after completion of adjuvant chemotherapy with 6 cycles of carboplatin/Taxol. She was retreated at that time with carboplatin/Taxol chemotherapy, but in combination with Avastin. Treatment was stopped after 4 cycles because of worsening neuropathy, but she did have a very good clinical response with normalization of the CA-125 level. She was then followed on observation. She did well until July 2012 when she presented with small bowel obstruction. Her Ca-125 level at that point had not increased and the obstruction initially did improve with conservative management. Ultimately, though, she was confirmed to have disease recurrence in the abdomen. She underwent surgery [facility] in October 2012. At laparotomy there were extensive adhesions in the abdomen, but there was recurrent tumor in the right mid abdomen and right upper quadrant. It was involving the cecum, the mesocolon, and the small bowel mesentery in a multiple twisted mass. There also was periaortic juanita involvement. She underwent right hemicolectomy and primary anastamosis of the bowel with complete resection of the mass. 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 She had gradual recovery from that procedure. In February 2013 she restarted chemotherapy with carboplatin in combination with gemcitabine. She experienced a significant hypersensitivity reaction to the carboplatin with the third cycle of treatment. She then continued chemotherapy with single agent gemcitabine. She experienced significant fatigue and myelosuppression with gemcitabine, even at a reduced dose level. She did not tolerate an attempt at dose escalation. She had some ongoing GI symptoms during this time, but no documented disease progression. She had a followup visit with Dr. David in January 2014. Her disease at that time appeared stable, and it was recommended that she stop chemotherapy again and just go back on observation. By May 2015 she was having significantly more abdominal pain and repeat CT abdomen/pelvis at that point was highly suspicious for recurrent metastatic disease at the site of the ileocolic anastomosis. That study showed no obvious metastatic involvement in the liver and no ascites. In June 2015 she restarted chemotherapy with weekly paclitaxel. She initially was tolerating it pretty well on a day 1/day 8 schedule every 3 weeks. She had presented at day 15 of her third cycle with severe abdominal pain and nausea. Repeat CT scan showed increasing soft tissue at the ileocolic anastomosis. There was a large amount of fecal material proximal to that site, and an area of stenosis was suspected. She did improve, though, with conservative management, and she subsequently was able to continue chemotherapy with weekly paclitaxel. As of November 2015 she had completed 7 cycles of treatment. Her chemotherapy was put on hold after her cycle 8 day 1 treatment due to diarrhea and increased abdominal pain. Abdominal x-rays showed just nonspecific gas pattern in the left abdomen. She had restaging CT abdomen/pelvis again on 01/13/2016. It showed no obstruction and no evidence of disease progression. There was no lymphadenopathy or ascites noted. Her symptoms had subsequently improved, and she did then proceed with her 9th cycle of chemotherapy. Beginning with cycle 10, I did have her change to a day 1/day 15 schedule. She had subsequently tolerated it much better. As of her follow-up visit on 08/06/2016, she appeared stable clinically, and at that point she continued with her 16th cycle of treatment. Her day 15 treatment with that cycle was not administered. She continued treatment with cycle 18 day 1 on 10/01/2016. On 10/06/2016 she was admitted to the hospital with pneumonia. CT pulmonary angiogram at that time showed no evidence of pulmonary emboli. There were widespread tree-in-bud pulmonary parenchymal nodularities and there was evidence of underlying chronic emphysema. There was new hilar or mediastinal lymphadenopathy noted, possibly reactive or neoplastic. Also noted was a superior segment left lower lobe pulmonary nodule measuring 8.4 mm. She did improve on antibiotic therapy, and she was discharged home on 10/10/2016. She had quit smoking just prior to the hospitalization. She did not receive day 15 treatment with that cycle. During subsequent follow-up, I opted to keep her chemotherapy on hold, as her disease had been very stable. Restaging CT scans of the chest, abdomen, and pelvis on 04/28/2017 showed resolved hilar and mediastinal adenopathy and resolved left lower lobe pulmonary nodule. There was stable appearance of the ileocolic anastomosis. There was no evidence of disease progression. Restaging CT scans of the chest, abdomen, and pelvis on 11/16/2018 showed unchanged medial middle lobe parenchymal opacity measuring 8-9 mm. Lingular and anterior left lower lobe subsegmental atelectasis and/or scarring also appeared unchanged. There was no evidence of disease progression in the chest, abdomen, or pelvis. In February 2019 she had presented with new onset of swelling in the right leg. Venous Doppler of the right leg on 03/09/2019 showed partially occlusive deep vein thrombosis of the superficial femoral vein with thrombus noted to extend into the greater saphenous vein. She began on anticoagulation with apixaban. Restaging CT scans on 03/22/2019 showed stable 8-9 mm pulmonary nodule in the right middle lobe. Right hilar and infrahilar hilar lymph nodes also appeared stable. Moderate right hydronephrosis with right ureterectasis appeared to be new. Slightly prominent right inguinal lymph nodes appeared unchanged. Overall, there was no evidence of disease progression in the chest, abdomen, or pelvis. She continued on observation/expectant management. Her other medical illnesses include hypertension, hypercholesterolemia and gastroesophageal reflux disease. She also has chronic obstructive pulmonary disease and she had a pretty severe episode of pneumonia in December 2008. She had stopped smoking following her hospitalization in September. 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 Other surgeries have been limited to tonsillectomy and tubal ligation. INTERIM HISTORY: In April 2019 a next generation sequencing study was performed on the specimen from her surgical resection in October 2012. It showed presence of a BRCA1 mutation, presumed to be somatic, as her original germline BRCA testing was negative. There were no other actionable mutations identified. Repeat CT abdomen/pelvis on 06/22/2019 showed enlarging soft tissue mass in the right side of the pelvis measuring 3.5 cm. This was noted to be in the area of surgical clips from her prior hysterectomy, and the appearance was felt to be consistent with local recurrence or metastatic adenopathy. The mass was noted to be adjacent to and possibly invading the psoas muscle. There was increasing hydronephrosis of the right kidney. She was referred to Dr. David. On 07/18/2019 she underwent exploratory laparotomy with extensive adhesive lysis and extensive retroperitoneal exploration and debulking of right pelvic/psoas muscle tumor. The tumor was noted to obstruct the right ureter, and the procedure included placement of a right ureteral stent. Pathology showed high-grade carcinoma which was PAX-8 and WT-1 positive. During follow-up she had ongoing problems with urinary tract infection and she continued to have significant pain in the right groin area and lower abdomen. Her repeat CT abdomen/pelvis on 12/12/2019 showed progression of a right pelvic mass compared to the June 2019 study. At that point it measured 5.8 x 3.8 x 6.5 cm and it was noted to encase the right ureter. It was inseparable from the distal small bowel loops and it was noted to abut the right L5-S1 disc space. There was interval placement of right ureteral stent with resolution of right hydronephrosis. With those findings and with the known BRCA mutation, she began a trial of therapy with olaparib 300 mg bid on 12/18/2019. As of her follow-up visit on 02/21/2020 she was still having significant pain in the right lower quadrant area and she also was reporting increased nausea and fatigue. There had been a significant decline in her CA 125 level. I had suspected that at least some of her symptoms were treatment related. She continued the olaparib, but with the dosage reduced to 200 mg twice daily. Subsequent to that visit she had 2 hospitalizations at [facility], only by 4 or 5 days. On both occasions she had bowel obstruction which was relieved with conservative management. I had seen her for a follow-up visit on 03/21/2020. She was beginning to feel better. There was further decline in the CA 125 level to 6.7 U/mL compared to 32.8 U/mL on 12/26/2019. Restaging CT of the abdomen/pelvis on 05/22/2020 showed resolution of the previously described right lower quadrant pelvic mass. A right double-J ureteral stent was noted to be in place. There was right renal cortical atrophy. There was no hydronephrosis. There was no adenopathy noted in the abdomen or pelvis. There was moderate constipation. She continued the olaparib at [address] CT scans on 11/07/2020 showed new subsegmental atelectasis in the lingula and left lower lobe, but no change in an 8 mm right middle lobe pulmonary nodule or and a 9 mm right hilar lymph node. There was possible tumor recurrence noted in the right pelvis with a slightly lobulated soft tissue nodule measuring 2.4 cm adjacent to the ureteral stent and with possible invasion into the right psoas muscle. There were no other findings suspicious for disease progression. She continued treatment with olaparib 200 mg twice daily. On 12/10/2000 she was seen in the emergency room with abdominal pain. Her CT abdomen/pelvis showed interval moderate dilatation of multiple small bowel loops and prominent fluid distention of the stomach suggesting possible small bowel obstruction, though no obvious transition zone was evident. There was continued atrophy of the right kidney but interval worsening of mild right hydronephrosis. There was good positioning of the right ureteral stent. She then continued her treatment with olaparib. As of her follow-up visit in February 2021 she agreed to try increasing the dosage back up to 300 mg twice daily. At her follow-up visit in March, she was tolerating it with acceptable toxicity, and she continued the same treatment. She is seen for a scheduled visit. She has not been feeling good. She has been having more pain in her abdomen on the right side going around to her back. She says she is tired all the time and has no energy. Her activity is very limited. ECOG score is 2. She has not been eating very much, but her weight is stable. She does not have fever. She does have hot flashes/sweating. Her sinuses have been bad, and she thinks she has sinus infection. She has not had sore throat or difficulty swallowing. She sometimes has cough. She is short of breath and she is on continuous oxygen. She has had some chest pain. She has nausea and she has burning in her epigastric area. She has having to use [employer] every 3 days to keep her bowels moving. Bladder function has been okay. She has ongoing problems with back pain. She sometimes has headache and she sometimes has dizziness. She has chronic neuropathy, and she thinks that is getting worse. Medications: Duragesic-100 2 Patch(es) (of 100 mcg) Patch 72 Hr Transdermal q 3 days, Enalapril Maleate 1 (20 mg) Tablet Oral b.i.d., Lactulose Solution Oral PRN, Levothroid 1 (50 mcg) Tablet Oral daily, Lyrica 1 Capsule (of 75 mg) Oral b.i.d., Magnesium 1 Capsule Oral daily, Metoclopramide HCl (10 mg) Tablet Oral four times a day, MiraLax Pack Oral daily, Mucinex Maximum Strength 1 Tablet (of 1200 mg) Tablet SR 12 HR Oral b.i.d. PRN, NexIUM 1 (40 mg) Capsule Delayed Release Oral b.i.d., Norvasc 1 Tablet (of 5 mg) Oral daily, OxyCODONE HCl 1 (20 mg) Tablet Oral q 4 hours PRN, Potassium 1 Tablet (of 100 mg) Oral daily, Proventil HFA Aerosol, solution Inhalation PRN, Soma 1 (350 mg) Tablet Oral t.i.d., TRAZADONE 1 (100 mg) Tablet Oral at bedtime, Venlafaxine HCl 1 (150 mg) Capsule SR 24 HR Oral daily, Xarelto 1 Tablet (of 10 mg) Oral daily, Zofran 1 Tablet (of 4 mg) Oral q 4 hours Allergies: Carboplatin Vital Signs: Performed on May 28, 2021 15:53 Height - 67.00 in Weight - 126 lbs (LOW) BSA - 1.66 sq.m BMI - 19.73 Temperature - 97.7 F (LOW) Pulse - 93 /min Respiration - 18 /min BP - 133/77 mm(hg) O2 Sat - 95 % (LOW) Pain - 7 Fatigue - 9 Physical Examination: Constitutional - She appears chronically ill, Eyes - Sclerae nonicteric. Conjunctivae clear, ENMT - Mouth is dry. There are no lesions noted in the oral cavity, Hematologic/Lymphatic - No cervical, clavicular, or axillary adenopathy, Respiratory - Lungs show diminished air movement bilaterally. There are some coarse rhonchi present, Cardiovascular - Heart rhythm is regular. There is no murmur, gallop, or rub noted, Abdomen - Soft. There is tenderness in the right flank area and right mid abdominal area. Liver and spleen are not enlarged. There is no abdominal mass noted and there is no obvious ascites. There is no inguinal adenopathy, Extremities - No edema, Neurologic - No focal neurologic deficits noted. Lab/Imaging: Test performed on May 28, 2021 14:49 Sodium 126 mmol/L Potassium 4.7 mmol/L Chloride 90 mmol/L CO2 31 mmol/L Anion Gap 9.7 BUN 9 mg/dL Creatinine 0.6 mg/dL Cr Clearance (Est) 87.7100 mL/min eGFR 101.3 mL/min Glucose 76 mg/dL Osmolality - Calculated 259 mOsm/kg Calcium 8.6 mg/dL Protein, Total 6.7 g/dL Albumin 4.2 g/dL Globulin 2.5 g/dL Bilirubin, Total 0.3 mg/dL ALT (SGPT) 8 U/L AST (SGOT) 16 U/L Alkaline Phosphatase 74 IU/L WBC 4.4 10 3/uL RBC 3.58 10 6/uL HGB 12.1 g/dL HCT 35.5 % MCV 99.2 fL MCH 33.8 pg MCHC 34.1 g/dL RDW 14.5 % Platelet Count 128 10 3/cmm MPV 9.2 fL Neutrophils 2.24 10 3/uL Lymphocytes 1.6 10 3/uL Monocytes 0.4 10 3/uL Eosinophils 0.1 10 3/uL Basophils 0.0 10 3/uL Neutrophil % 51.4 % Lymphocyte % 36.7 % Monocyte % 8.5 % Eosinophil % 2.3 % Basophils % 0.9 % NRBC % 0 % CA-125 15.3 U/mL Problem List: 1. Recurrent ovarian cancer. By next generation sequencing her tumor was noted to harbor a BRCA1 mutation, presumed somatic, as her original testing for germline BRCA was negative. Her tumor also was tested and found to be MSI stable with intact mismatch repair proteins. 2. She had optimal debulking following initial diagnosis in May 2003, and she received adjuvant chemotherapy with 6 cycles of carboplatin/paclitaxel. 3. She had further treatment with 4 cycles of carboplatin/paclitaxel in combination with Avastin following documented recurrence in July 2008. 4. She had restarted chemotherapy with carboplatin/gemcitabine in February 2013 following a surgical debulking procedure for disease progression with associated bowel obstruction. Her treatment was subsequently modified to single agent gemcitabine as a result of a hypersensitivity reaction to carboplatin. She had some response to the chemotherapy. As of January 2014 her disease was felt to be stable, and she was then observed off treatment. 5.. In May 2015 she restarted chemotherapy with weekly paclitaxel. Following her cycle 18 treatment on 09/17/2016 she had another hospital admission for pneumonia. As her disease had been stable and her performance status had been declining, her chemotherapy at that point was put on hold. 6. In December 2019 she began further treatment with olaparib after she was confirmed to have disease progression in the right pelvis with associated right hydronephrosis. Her other medical illnesses include: 7. Hypertension. 8. Hyperlipidemia. 9. GERD. 10. COPD. 11. Degenerative disease of the spine with chronic back pain. 12. Chronic anxiety/depression. Problems Addressed with this Encounter and Plan: 1. Recurrent ovarian cancer. In November 2019 she had evidence of disease progression with CT evidence of right pelvic mass with ureteral obstruction and hydronephrosis, requiring placement of right ureteral stent. In December 2019 she began a trial of therapy with olaparib, initially at 300 mg twice daily. She did show a very good response by follow-up CT scan and by CA-125 level, but she subsequently did require a dose reduction to 200 mg twice daily. During the past several months she has had gradual worsening of abdominal pain. She has CT findings which are suspicious for partial or developing small bowel obstruction. On my review of the October study with the radiologist, there did appear to be significant worsening in the appearance of the bowel compared to previous studies. There was no obvious recurrence of mass associated with the right hydronephrosis, but that area was difficult to visualize. Her CA-125 level now is up slightly. She continues to have significant abdominal pain, and she has very marginal performance status. Overall, her clinical presentation appears consistent with gradual progression of her ovarian cancer. Her further treatment options unfortunately are very limited, particularly with her significant residual neuropathy. She continued treatment with a lap rib. As of February 2021 she increased the dosage back up to 300 mg twice daily. She has been able to tolerated with acceptable toxicity. However, she continues to have very marginal performance status. She has increasing pain in the right abdominal/flank area and there has been a gradual increase in her CA-125 level. Overall, the findings are very suspicious for disease progression. She will be eligible for restaging CT scans of the chest, abdomen, and pelvis. She will have further evaluation as indicated. 2. 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 She continues symptomatic management. 3. She has severe underlying COPD. She is on continuous oxygen. Signed By: Ravi Lynne M.D. <<Signature on File>>
== END 2021-05-28 14:16 | disposition home or self-care (01) ==
LOC: ONCMED 14:19
PROVIDERS: Visit Provider Internal Medicine Medical Oncology
DX: C56.1 Malignant neoplasm of right ovary (principal); I10 Essential (primary) hypertension; E78.5 Hyperlipidemia, unspecified; K21.9 Gastro-esophageal reflux disease without esophagitis; J44.9 Chronic obstructive pulmonary disease, unspecified; Z99.81 Dependence on supplemental oxygen; M47.9 Spondylosis, unspecified; F41.9 Anxiety disorder, unspecified; F32.9 Major depressive disorder, single episode, unspecified; Z79.899 Other long term (current) drug therapy; Z92.21 Personal history of antineoplastic chemotherapy
CPT/HCPCS: 36591; 80053; 85025; 86304; 99214

== ENCOUNTER 2021-06-06 13:17 | Outpatient (CLI) | payer MEDICARE, OTHER, SELFPAY ==
--- NOTE | 2021-06-06 13:27 | CT_ITS ---
WS: [id number] CT scan of the chest With IV contrast, CT scan of the abdomen and pelvis with IV contrast and oral contrast. Additional two-dimensional coronal and sagittal reconstruction was performed. 06/06/2021 Clinical Data: MALIGNANT NEOPLASM OF RIGHT OVARY, SECONDARY NEOPLASM OF OTH Comparison: CT chest abdomen pelvis, 12/10/2020. DLP: 1496.[address] scans at [facility] use at least one of these dose optimization techniques: automat ed exposure control; mA and/or kV adjustment per patient size (includes targeted exams where dose is matched to clinical indication); or iterative reconstruction. Findings: Chest: No nodules, masses or effusions are seen. There is a right infusion catheter. The heart size is normal with no pericardial effusion. No metastatic lesions, pneumonia or pneumothor ax is seen. The pulmonary arterial system and thoracic aorta demonstrate no abnormalities or dilatations. There i s minimal coronary artery calcification. There is no axillary or significant mediastinal adenopathy. No bony metastatic disease to the thoraci c vertebra is seen. Abdomen/pelvis: The liver, gallbladder, spleen, adrenal glands and pancreas are normal. The kidneys show equal bilateral contrast excretion with minimal right perinephric fluid. The right k idney is atrophic. The right ureteral catheter is in good position and there is less dilatation of th e right renal pelvis. The abdominal aorta is normal in size with calcification in the wall.. No appendicitis or diverticulitis is seen. There are clips adjacent to the abdominal aorta and the pa tient has had periaortic surgery, possibly an ileocolic anastomosis. Oral contrast is in the stomach, small bowel and colon, and there is no bowel dilatation. No abscess, adenopathy, ascites, mass, obst ruction or free air is seen. There is a large amount of fecal material in the colon. The bladder is unremarkable. No uterus is noted. No inguinal hernia is seen. The bones of the lower thorax, lumbar spine, pelvis, and hips demonstrate no metastatic lesions but t here is disc narrowing at L5-S1. CT/CT chest abd pel w con* Impression: 1. Negative for acute cardiopulmonary disease. 2. Decrease in dilatation of atrophic right kidney with satisfactory position o f right ureteral stent. 3. Negative for acute intra-abdominal or pelvic abnormalities. .
[2021-06-06] MEDS: iohexol 300 mg/mL 100 mL Btl IV (14:58)
[2021-06-06] MEDS: iohexol 300 mg/mL 50 mL Btl PO (14:58)
== END 2021-06-06 13:18 | disposition home or self-care (01) ==
PROVIDERS: PCP Internal Medicine Medical Oncology; Visit Provider Internal Medicine Medical Oncology
DX: C56.1 Malignant neoplasm of right ovary (principal)
CPT/HCPCS: 71260; 74177; Q9967

== ENCOUNTER 2021-06-29 06:51 | Inpatient (IN) | payer MEDICARE, OTHER, SELFPAY ==
[2021-06-29] VITALS (60 sets, daily range): BP systolic 86–127; BP diastolic 58–85; PULSE 105–132; RESP 18–30; TEMP 36.9–38.2; O2SAT 84–98; BMI 19.9
--- NOTE | 2021-06-29 08:50 | PC.NURSE ---
Dr garcía notified of patients lung sounds and at bedside for examination RT with patient when patient began to deteriorate verbal instructions received at bedside to place elkins start Bipap obtain covid PCR patient stabilized although Dr. garcía wants patient to ICU when bed becomes available
--- NOTE | 2021-06-29 09:17 | PM.HP ---
Providers/Chief Complaint Admitting Physician: Lillian Moreno MD Primary Care Provider: Ravi Lynne MD Chief Complaint: PARTIAL SBO History of Present Illness Nisreen Carrasco is a 61 year old female with past medical history of hypertension, hyperlipidemia, GERD, COPD, chronic anxiety/depression, recurrence of ovarian cancer, multiple abdominal surgery, abdominal radiation, multiple episodes of small bowel obstruction, right renal atrophy because of ureteral obstruction and hydronephrosis requiring right ureteral stent, recurrent ovarian cancer was transferred over from outside facility as a direct admit where she had presented last night with complaints of difficulty in breathing which has been going on for last 4 to 5 days associated with nausea, abdominal pain, decreased appetite and oral intake. Patient is also complaining of expectoration without any foul smell, bleeding, hemoptysis, hematemesis. Patient states she has not had a bowel movement illness 4 to 5 days, denies passing any gas. Complaining of occasional episode of burning by micturition. Patient denies any fever, states is vaccinated for COVID-19 with last dose in January of this year. Patient also underwent ureteral stent placement in January of this year and was due to be changed this month. As per the patient she has been having decreased urine output for last 4 days with urine being highly concentrated last night. Patient states she almost thought she was bleeding in her urine. Blood work at the outside hospital is as follows. BNP 286, baseline troponin 0 0.05, lipase 37.1, sodium 131, potassium 4.6, BUN 30.5, creatinine 3.1, albumin 3.6, ALT/AST 31/38, alkaline phosphatase of 71, rapid COVID-19 antigen negative, CT chest showing bilateral pulmonary infiltrates in mid and lower lung shelley, CT abdomen pelvis showing moderate grade partial small bowel obstruction with hydropic appearing gallbladder. At the other hospital she was given 3 to 3.5 L of fluid bolus. ABG done at the other hospital showed a pH of 7.3, PCO2 of 53, PO2 of 60. On my examination she was on 12 L oxygen mask saturating 86% heart rate of 120 with blood pressure mean arterial pressure of 68, AO x3 in mild respiratory distress. Review of Systems General: Reports: 10 or more systems reviewed and unremarkable except in HPI and below Const: Denies: fever(s), chills, body aches, change in appetite, change in weight, malaise, night sweats, diaphoresis, change in sleep pattern, daytime sleepiness or snoring Eyes: Denies: change in vision, blurry vision, photophobia, eye discomfort or eye discharge ENMT: Denies: throat pain, enlarged tonsils, hoarseness, mouth pain, oral sores, dry mouth, tinnitus, nasal congestion or post nasal drip Card: Denies: chest pain, palpitations, irregular heart rhythm, edema, swelling of feet/ankles, lightheadedness, syncope, pre-syncope, dyspnea on exertion, orthopnea, leg pain with exertion or acrocyanosis Resp: Denies: dyspnea, productive cough, non-productive cough, wheezing, stridor, pain on inspiration, change in phlegm color, hemoptysis or chest congestion GI: Denies: abdominal pain, nausea, vomiting, hematemesis, coffee ground emesis, dysphagia, heartburn, diarrhea, constipation, bloating, GI cramping, change in bowel habits, pain on defecation, hematochezia or melena : Denies: flank pain, dysuria, urinary frequency, urinary urgency, urinary hesitancy, nocturia or hematuria Musc: Denies: neck pain, back pain, extremity pain, joint pain, joint swelling, joint redness, joint stiffness or limited range of motion Neuro: Denies: headache(s), numbness in extremities, weakness in extremities, sensory changes, lack of coordination, difficulty walking, frequent falls, dizziness, vertigo, confusion, Slurred speech present, difficulty communicating thoughts or seizure-like activity Psych: Denies: anxiety, depression, mood swings, panic attacks, hopelessness or irritability Endo: Denies: polyuria, polydipsia, tired all the time, cold intolerance, excessive sweating, flushing or heat intolerance Kashif/Lymph: Denies: easy bruising or easy bleeding All/Imm: Denies: tongue swelling, facial swelling or acute wheezing Medications/Allergies Home Medications Medication Instructions Recorded Confirmed Last Taken Type albuterol sulfate 90 mcg/actuation 2 inh INHALATION Q6H PRN 11/29/19 06/29/21 06/28/21 14:00 History breath activated powder inhaler biotin 1,000 mcg chewable tablet 1,000 mcg PO DAILY 11/29/19 06/29/21 09/04/20 History carisoprodol 350 mg tablet 350 mg PO TID 11/29/19 06/29/21 06/28/21 21:00 History enalapril maleate 10 mg tablet 10 mg PO BID 11/29/19 06/29/21 06/28/21 21:00 History esomeprazole magnesium 40 mg 40 mg PO BID cap 11/29/19 06/29/21 06/28/21 21:00 History capsule,delayed release guaifenesin 600 mg tablet, 600 mg PO Q12H PRN 11/29/19 06/29/21 04/24/20 History extended release 12 hr levothyroxine 50 mcg tablet 50 mcg PO DAILY 11/29/19 06/29/21 06/28/21 08:00 History magnesium oxide 500 mg capsule 500 mg PO DAILY 11/29/19 06/29/21 09/04/20 History oxycodone 20 mg tablet 20 mg PO Q6H PRN 11/29/19 06/29/21 06/28/21 21:00 History potassium gluconate 595 mg (99 mg) 595 mg PO DAILY 11/29/19 06/29/21 09/04/20 History tablet pregabalin 150 mg capsule 150 mg PO TID 11/29/19 06/29/21 06/28/21 21:00 History rivaroxaban 20 mg tablet 20 mg PO DAILY 11/29/19 06/29/21 06/28/21 08:00 History venlafaxine 150 mg 150 mg PO DAILY 11/29/19 06/29/21 06/28/21 08:00 History capsule,extended release 24 hr trazodone 150 mg PO BEDTIME 12/01/19 06/29/21 06/28/21 21:00 History fentanyl 2 patch TOPICAL Q72H 12/04/19 06/29/21 06/26/21 08:00 History amlodipine 5 mg PO DAILY 09/04/20 06/29/21 06/28/21 08:00 History Allergies Allergy/AdvReac Type Severity Reaction Status Date / Time carboplatin AdvReac ADR-Vomitin Verified 03/10/21 11:00 g PFSH Acute PFSH: Medical History (Updated 06/29/21 @ 09:40 by Chad Canchola MD) COPD (chronic obstructive pulmonary disease) Extrinsic ureteral obstruction Hydronephrosis, right Ovarian cancer on right Pelvic pain in female Recurrent UTI Secondary malignant neoplasm of other specified sites Small bowel obstruction Surgical History (Updated 06/29/21 @ 09:40 by Chad Canchola MD) History of hysterectomy with bilateral oophorectomy History of right hemicolectomy S/P ureteral stent placement Family History Mother , at age 59 Cancer breast Myocardial infarction (lateral wall) Father Cancer prostate cancer Pacemaker Other CAD (coronary artery disease) Hypertension Social History Smoking and tobacco status: current every day smoker Alcohol intake: never Adopted: No Caregiver/support person: No Lives independently: No Household members: spouse Marital status: Current occupational status: disabled History of recent travel: No Female Reproductive History: Date of last menstrual period: 12/01/19 Vitals/I&O/Wt Last Vital Signs Temp 98.5 F 06/29/21 07:42 Pulse 118 H 06/29/21 08:46 Resp 20 H 06/29/21 08:46 BP 88/64 06/29/21 07:42 Pulse Ox 84 L 06/29/21 08:46 Weight last 48 hrs Weight 57.742 kg Weight 57.691 kg Physical Exam Narrative: EXAM NARRATIVE: General: No acute distress, AO x3, in mild distress on 4 L oxygen mask, warm peripheries HEENT: PERRLA, pupils bilaterally equal and reactive Chest: Bilateral crackles present all over the lung shelley up to mid zone bilaterally, anterior more than posterior, decreased air entry bilaterally lower zone CVS: S1-S2 regular, no murmurs, tachycardia, no gallops, no rubs Abdomen: Soft, nontender, no organomegaly, bowel sounds sluggish Neuro: No focal deficits, no facial deformity, AO x3, power 5/5 in all limbs A&P Assessment and plan (1) Hypoxia: Status: Acute (2) Pneumonia: Status: Acute (3) Small bowel obstruction: Status: Acute (4) Renal failure: Status: Acute (5) Extrinsic ureteral obstruction: Status: Chronic (6) S/P ureteral stent placement: Status: Chronic (7) COPD (chronic obstructive pulmonary disease): Status: Acute (8) Ovarian cancer on right: Status: Acute Additional A&P Information 61-year-old female with past medical history of recurrent ovarian cancer, recurrent bowel obstruction with history of adhesions, recent right ureteral stent placement for right ureteral obstruction presented to the outside hospital with difficulty in breathing found to have pneumonia and bowel obstruction. She was given up to 3 L of fluid boluses at the outside hospital. Hypoxic respiratory failure: Start on BiPAP ventilation. Stat ABG, CBC, CMP, procalcitonin, MRSA swab, blood culture, UA, urine culture, lactate, D-dimer, urine Legionella, bacterial antigen, sputum culture. COVID-19 PCR. Isolation precautions. For now start patient on vancomycin, Zosyn, azithromycin. Will de-escalate antibiotics as per culture results. Oxygen supplementation keeping saturation over 90%. Suspicion of fluid overload. Check echocardiogram. IV Lasix 40 mg twice daily. Strict input output charting, daily weights. Renal failure: Baseline creatinine 0.6. History of right ureteral stent placement for obstruction secondary to recurrence of cancer. Patient did have CT abdomen pelvis done in late May along with dehydration from poor oral intake and continuation of JOANN inhibitor as an outpatient. Medical reconciliation done for nephrotoxic drugs. Check urine lites, urine creatinine, urine eosinophils. Continue to monitor BMP daily. No metabolic acidosis or electrode imbalance for now. Small bowel obstruction: History of multiple episodes of bowel obstruction with multiple adhesions in the past. NPO. Patient refused NGT placement. Zofran as needed. Protonix 40 mg IV twice daily. CT abdominal imaging. Recurrent ovarian cancer: Follows up with Dr. Lynne. Hold off on oral cancer therapy for now. Patient take Xarelto at home though not really aware of the reason. For now stop Xarelto switch over to full dose Lovenox 1 mg/kg body weight daily daily. Full code. NPO. Protonix for PUD prophylaxis. Low threshold for ICU transfer and intubation. Attestations Medical Necessity Statement*: Admission for more than 2 midnights for hypoxic respiratory failure, renal failure, bowel obstruction in setting of recurrent ovarian cancer causing obstruction of right ureter/post right ureteral stent placement. Time Spent in Patient Care: Greater than 35 minutes (>than 50% of time spent in counselling and/or direct pt care on unit). Coding Level of Care Code Acute Cigarette Making Machine Catcher for [facility] Diagnoses Hypoxia R09.02 Pneumonia J18.9 Small bowel obstruction K56.609 Renal failure N19 Extrinsic ureteral obstruction N13.5 S/P ureteral stent placement Z96.0 COPD (chronic obstructive pulmonary disease) J44.9 Ovarian cancer on right C56.1
[2021-06-29 09:24] LABS: ABG PCO2 50.2 mmHg (35-45); ABG PH Result 7.35 (7.35-7.45); Alveolar-Arterial Oxygen Gradi 77.6 mmHg (5-10); Arterial Blood Gas Hematocrit 37.6 % (37-47); Base Excess ABG 1.3 mmol/L (-2.0-2.0); Blood Gas Operator Identificat AMH; Blood Gas Sample Site Brachial, right; Blood Gas Sample Type Arterial; Carboxyhemoglobin 1.5 %THgb (0.4-20.1); HCO3 ABG 27.7 mmol/L (22-26); HGB O2 Sat 89.1 % (95-100); Ionized Calcium Level - ABG 1.2 mmol/L (1.1-1.4); Methemoglobin 0.8 % (0.4-1.5); Oxygen Device BIPAP; Oxygen Saturation ABG 91.2; PO2 ABG 59.1 mmHg (80.0-100.0); Potassium Level - ABG 4.4 mmol/L (3.5-5.0); Total Hemoglobin 12.3 g/dL (12-16)
--- NOTE | 2021-06-29 09:45 | XRR_ITS ---
PROCEDURE INFORMATION: Exam: XR Abdomen Exam date and time: 06/29/2021 9:45 AM Age: 61 years old Clinical indication: Abdominal pain; Generalized; Additional info: Sbo TECHNIQUE: Imaging protocol: XR of the abdomen. Views: 2 Views. Upright and supine views. Total images: 3 COMPARISON: CT chest abd pel w con* 06/06/2021 2:55 PM FINDINGS: Tubes, catheters and devices: A right infusion port is present. Lungs: Trace atelectasis or scar noted in the left mid lung and lung bases. Gastrointestinal tract: A paucity of bowel gas is noted with loops that are visualized appearing nondistended and nonobstructive. Intraperitoneal space: Multiple surgical clips are present in the mid abdomen and pelvic cosme. Organs: A double-J right ureteral stent is in place and shows the proximal J uncoiled but remains partially in the renal pelvis. The distal J is within the urinary bladder. Bones/joints: Osseous structures are unchanged from the prior exam. Osseous structures are unchanged from the prior exam. Soft tissues: Increased density of the lower chest felt to be related overlying soft tissues. Subcutaneous injection granuloma is incidentally noted. XR/XR acute abdomen series [id number] IMPRESSION: 1. Trace atelectasis or scar noted in the left mid lung and lung bases. 2. A double-J right ureteral stent is in place and shows the proximal J uncoiled but remains partially in the renal pelvis. The distal J is within the urinary bladder. 3. A paucity of bowel gas is noted with loops that are visualized appearing nondistended and nonobstructive.
[2021-06-29] MEDS: FUROsemide 10 mg/mL SDV 4mL 40 MG IVP ×2 (10:22→21:31)
[2021-06-29] MEDS: pantoprazole 40 mg SDV IVP ×2 (10:22→20:11)
[2021-06-29] MEDS: enoxaparin 60 mg/0.6 mL Syringe SUBCUT (10:23)
[2021-06-29] MEDS: piperacillin-tazobactam 3.375 GM in sodium chloride 0.9% (plus) 50 ML IV ×2 (10:23→18:17)
[2021-06-29 10:27] LABS: Basophils % 0.5 %; Hematocrit 35.9 % (37.0-47.0); Hemoglobin 12.2 g/dL (11.5-15.3); Lymphocytes # 0.2 10^3/uL (0.8-4.8); Lymphocytes % 5.7 %; Mean Corpuscular Hemoglobin 34.6 pg (28.0-34.0); Mean Corpuscular Volume 101.7 fl (81-99); Monocytes # 0.3 10^3/uL (0.2-0.9); Monocytes % 6.5 %; Neutrophils # 3.47 10^3/uL (1.8-7.7); Neutrophils % 86.3 %; Nucleated Red Blood Cells % 0 %; Platelet Count 83 10^3/cmm (130-400); Red Blood Count 3.53 10^6/uL (4.1-5.3); Red Cell Distribution Width 15.7 % (12.1-15.1)
[2021-06-29 10:47] LABS: Potassium, Radom Urine 60 mmol/L
[2021-06-29 10:56] LABS: Lactic Sepsis W/Reflex 1.8 mmol/L (0.5-2.2)
[2021-06-29 11:02] LABS: NT Pro B Type Natriuretic Pept 3144 pg/mL (0-125)
[2021-06-29 11:03] LABS: Magnesium 1.7 mg/dL (1.7-2.3); Phosphorus 4.8 mg/dL (2.5-4.5); Thyroid Stimulating Hormone 0.57 uIU/mL (0.27-4.20)
[2021-06-29 11:15] LABS: Alanine Aminotransferase 21 U/L (0-33); Albumin Level 3.6 g/dL (3.5-5.2); Alkaline Phosphatase 54 IU/L (35-105); Anion Gap 18.8 (5-19); Aspartate Amino Transferase 38 U/L (0-32); Blood Urea Nitrogen 32 mg/dL (8-23); Carbon Dioxide 24 mmol/L (22-29); Chloride 94 mmol/L (98-107); Globulin 2.6 g/dL (1.3-4.6); Glomerular Filtration Rate 30.4 mL/min (90-130); Glucose 76 mg/dL (65-115); Iron 9 ug/dL (37-145); Osmolality Calculated 280 mOsm/kg (285-295); Percent Saturation 5.4 % (20-50); Potassium 4.8 mmol/L (3.5-5.1); Sodium 132 mmol/L (136-145); Total Bilirubin 0.7 mg/dL (0.15-1.2); Total Iron Binding Capacity 166 mcg/dl; Total Protein 6.2 g/dL (6.6-8.7); Unsaturated Iron Binding 157 ug/dL (112-347)
[2021-06-29 11:37] LABS: Urine Random Chloride < 10 mmol/L; Urine Random Sodium < 10 mmol/L
[2021-06-29 11:47] LABS: Bilirubin Urine 1+ (Negative); Blood Urine 3+ (Negative); Glucose Urine UA Norm (Normal); Ketones Urine Negative (Negative); Leukocyte Esterase Urine Negative (Negative); Nitrate Urine Negative (Negative); Protein Urine 1+ (Negative); Specific Gravity, Urine 1.015 (1.005-1.030); Urine Appearance Cloudy (CLEAR); Urine Color Amber (Yellow); Urobilinogen Urine 1 mg/dL (Negative); pH Urine 5 (5-7)
[2021-06-29 11:48] LABS: RBC Urine TOO NUMEROUS TO CNT /hpf (0-2)
[2021-06-29 11:49] LABS: Bacteria Urine 2+ /hpf; Squamous Epithelial Cell Urine 0-4 /hpf (0-5)
[2021-06-29 11:50] LABS: Add Urine Culture? No; Coarse Granular Casts Urine 0-4 /lpf
[2021-06-29 11:57] LABS: ABG PCO2 38.9 mmHg (35-45); ABG PH Result 7.45 (7.35-7.45); Arterial Blood Gas Hematocrit 40.6 % (37-47); Base Excess ABG 2.7 mmol/L (-2.0-2.0); Blood Gas Allen Test Pos; Blood Gas Operator Identificat AMH; Blood Gas Sample Site Radial, left; Blood Gas Sample Type Arterial; HCO3 ABG 26.9 mmol/L (22-26); Oxygen Device BIPAP; PO2 ABG 66.1 mmHg (80.0-100.0)
[2021-06-29] MEDS: ipratropium-albuterol 3 mL Neb INHALATION ×4 (12:09→23:21)
--- NOTE | 2021-06-29 13:01 | PC.NURSE ---
patient moaning with pain in upper abdomen rated 8/10 took patient PRN alda upon administration patient stopped this nurse and stated dialudid makes me sick i cant take that Dr garcía notified instructions to ask patient what she could take for the pain patient Stated ila notitifed Dr garcía instructions to order home dose of fentynle patches due to out date of current ones in place
[2021-06-29 13:59] LABS: Reticulocyte % 1.2 % (0.5-2.0)
--- NOTE | 2021-06-29 14:46 | PC.NURSE ---
notifeid Dr gacría about patient increased abdomen firmness instructions received to switch patient to heated High flow RT notified of change
[2021-06-29 15:19] LABS: Folate Level 10.6 ng/mL (4.8-37.3)
[2021-06-29 16:04] LABS: Vitamin B12 219 pg/mL (232-1245)
[2021-06-29 16:33] LABS: Urine Creatinine 111 mg/dL (28-217)
[2021-06-29] MEDS: fentaNYL 100 mcg Patch 2 PATCH TRANSDERMA (16:38)
[2021-06-29] MEDS: vancomycin 750 MG in sodium chloride 0.9% 250 ML 250 MG IV (16:39)
[2021-06-29] MEDS: iron sucrose 200 MG in sodium chloride 0.9% (100 ml) 100 ML 220 MG IV (16:39)
--- NOTE | 2021-06-29 16:46 | ECG_ITS ---
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 Measurements Intervals Goehner Rate: 127 P: 76 UT: 144 QRS: 67 QRSD: 81 T: 85 QT: 335 QTc: 487 Interpretive Statements SINUS TACHYCARDIA MODERATE T-WAVE ABNORMALITY, CONSIDER LATERAL ISCHEMIA [-0.1+ mV T-WAVE IN I/aVL/V5/V6] Compared to ECG 12/10/2020 00:46:00 T-wave abnormality now present Possible ischemia now present Sinus rhythm no longer present Electronically Signed On 06-30-2021 19:22:31 CDT by Berna Muniz M.D. [id number]
[2021-06-29 17:12] LABS: Procalcitonin > 100.00 ng/mL (0-0.5)
[2021-06-29 17:50] LABS: Eosinophil Urine No Eosinophils Seen; Urine Eosinophil Count 0 (0-0)
[2021-06-29] MEDS: metoprolol tartrate 1 mg/1 mL SDV 5 mL 2.5 MG IVP (18:24)
--- NOTE | 2021-06-29 18:46 | PC.NURSE ---
Port accessed without difficulty.
[2021-06-29] MEDS: cyanocobalamin 1,000 mcg/mL SDV 1000 MCG IM (19:11)
[2021-06-29] MEDS: morphine 4 mg/mL SDV 1 mL 2 MG IVP (20:11)
[2021-06-29] MEDS: budesonide 0.5 mg/2 mL Neb INHALATION (20:28)
[2021-06-29] MEDS: HYDROmorphone 1 mg/mL INJ 1 mL IVP (23:35)
[2021-06-29] MEDS: ondansetron 2 mg/ML SDV 2 mL 4 MG IVP (23:40)
[2021-06-30] VITALS (62 sets, daily range): BP systolic 96–120; BP diastolic 63–84; PULSE 108–135; RESP 13–35; TEMP 36.7–37.8; O2SAT 85–95
[2021-06-30] MEDS: piperacillin-tazobactam 3.375 GM in sodium chloride 0.9% (plus) 50 ML IV ×3 (01:31→17:15)
[2021-06-30] MEDS: metoprolol tartrate 1 mg/1 mL SDV 5 mL 2.5 MG IVP (01:41)
--- NOTE | 2021-06-30 02:59 | PC.NURSE ---
New Orders; New orders received from assistant education director overnight/Tiffanie for Q4H PRN IVP Dilaudid, as needed for episodes of pain. red hat linux administrator as indicated.
[2021-06-30] MEDS: ipratropium-albuterol 3 mL Neb INHALATION ×6 (03:32→23:07)
[2021-06-30] MEDS: HYDROmorphone 1 mg/mL INJ 1 mL IVP ×2 (04:05→15:41)
[2021-06-30 05:06] LABS: Basophils % 0.1 %; Hematocrit 38.8 % (37.0-47.0); Hemoglobin 13.2 g/dL (11.5-15.3); Lymphocytes # 0.3 10^3/uL (0.8-4.8); Lymphocytes % 3.2 %; Mean Corpuscular Hemoglobin 34.2 pg (28.0-34.0); Mean Corpuscular Volume 100.5 fl (81-99); Mean Platelet Volume 11.8 fL (7.4-10.4); Monocytes # 0.3 10^3/uL (0.2-0.9); Neutrophils # 7.87 10^3/uL (1.8-7.7); Neutrophils % 93.6 %; Nucleated Red Blood Cells % 0 %; Platelet Count 94 10^3/cmm (130-400); Red Blood Count 3.86 10^6/uL (4.1-5.3); Red Cell Distribution Width 15.7 % (12.1-15.1); White Blood Count 8.4 10^3/uL (4.0-10.0)
[2021-06-30 05:19] LABS: Cholesterol 101 mg/dL (0-200); HDL Cholesterol 44 mg/dL (60-100); LDL Cholesterol Calculated 29 mg/dL (50-129); Triglycerides 139 mg/dL (0-150); VLDL Cholestrol Calculation 28 mg/dL (0-30)
[2021-06-30 05:31] LABS: Alanine Aminotransferase 20 U/L (0-33); Albumin Level 3.7 g/dL (3.5-5.2); Alkaline Phosphatase 46 IU/L (35-105); Anion Gap 20.8 (5-19); Aspartate Amino Transferase 30 U/L (0-32); Blood Urea Nitrogen 39 mg/dL (8-23); Calcium 8.4 mg/dL (8.5-10.5); Carbon Dioxide 28 mmol/L (22-29); Chloride 93 mmol/L (98-107); Globulin 3.2 g/dL (1.3-4.6); Glomerular Filtration Rate 41.4 mL/min (90-130); Glucose 128 mg/dL (65-115); Magnesium 1.8 mg/dL (1.7-2.3); Osmolality Calculated 299 mOsm/kg (285-295); Sodium 139 mmol/L (136-145); Total Protein 6.9 g/dL (6.6-8.7)
[2021-06-30 05:34] LABS: Potassium 2.8 mmol/L (3.5-5.1)
[2021-06-30 05:39] LABS: Estmated Average Glucose 88; Hemoglobin A1C 4.7 % (4.0-6.0)
--- NOTE | 2021-06-30 06:00 | XRR_ITS ---
PROCEDURE INFORMATION: Exam: XR Chest Exam date and time: 06/30/2021 6:00 AM Age: 61 years old Clinical indication: Dyspnea; Additional info: Covid TECHNIQUE: Imaging protocol: XR of the chest. Views: 1 view. COMPARISON: CT chest abd pel w con* 06/06/2021 2:55 PM FINDINGS: Tubes, catheters and devices: Right upper thoracic port with attached right subclavian central venous line, tip overlying the cavoatrial junction. Lungs: Mild mixed interstitial/alveolar opacities at the right lung base. Moderate mixed interstitial/alveolar opacities at the left lung base. These findings are consistent with multifocal pneumonia. Pleural spaces: No visible pneumothorax or pleural effusion. Heart/Mediastinum: Heart size within normal limits. Bones/joints: No emergent findings identified. XR/XR chest 1V portable [id number] IMPRESSION: 1. Mild mixed interstitial/alveolar opacities at the right lung base. Moderate mixed interstitial/alveolar opacities at the left lung base. These findings are consistent with multifocal pneumonia.
[2021-06-30 06:13] LABS: Slide Review Slide Review Perform
[2021-06-30] MEDS: lidocaine 1% 5 ML in potassium chloride premix 100 ML 25 ML IV ×2 (08:22→18:58)
[2021-06-30] MEDS: azithromycin 500 MG in sodium chloride 0.9% 250 ML 250 MG IV (08:23)
[2021-06-30] MEDS: pantoprazole 40 mg SDV IVP ×2 (08:24→21:11)
[2021-06-30] MEDS: cyanocobalamin 1,000 mcg Tablet 500 MCG PO (08:25)
[2021-06-30] MEDS: folic acid 1 mg Tablet PO (08:25)
[2021-06-30] MEDS: FUROsemide 10 mg/mL SDV 4mL 40 MG IVP (08:41)
--- NOTE | 2021-06-30 08:47 | P.PN_ITS ---
Subjective Subjective: Interval history: For she is doing a little better. She was nauseated this morning, but improved with Zofran. No vomiting. Has not had a bowel movement in a few days. Not passing flatus at this time. Would like to have some ice chips, asking for mouth swabs. Vitals/I&O/Wt Last Vital Signs Temp 99.8 F H 06/30/21 04:15 Pulse 121 H 06/30/21 06:00 Resp 21 H 06/30/21 04:15 BP 108/75 06/30/21 04:15 Pulse Ox 90 06/30/21 04:15 06/29/21 06/30/21 06/30/21 22:59 06:59 14:59 Intake Total 50 / 100 410 / 410 Output Total 160 / 1020 1300 / 2320 Balance -110 / -920 -1300 / -2220 410 / 410 Weight last 48 hrs Weight 57.834 kg Weight 57.742 kg Weight 57.691 kg Physical Exam Const: COMMON NORMALS: no acute distress and patient oriented x3 HENMT: COMMON NORMALS: oropharynx normal Neck/C-Spine: COMMON NORMALS: no JVD Resp: COMMON NORMALS: normal respiratory effort AUSCULTATION: diminished lung sounds bilateral in the lower lung shelley Cardio: COMMON NORMALS: no JVD, regular rhythm, S1 normal heart sound present, S2 normal heart sound present and No murmurs present (Cardio) RHYTHM: regular rhythm HEART SOUNDS: S1 normal heart sound present and S2 normal heart sound present GI: COMMON NORMALS: Soft to palpation and non-tender AUSCULTATION: Yes Hypoactive bowel sounds present PALPATION: Yes Soft to palpation Extremity: COMMON NORMALS: no joint enlargement and no pedal edema Neuro: COMMON NORMALS: patient oriented x3 and moves all extremities Skin: COMMON NORMALS: no rashes or lesions noted GENERAL SKIN EXAM: no rashes or lesions noted Urinary Catheter Management^: Joseph: Cath Placed During This Visit: yes Reason for Continuing Indwelling Catheter: Accurate Measurement of Urinary Output in Critically Ill Patients Urinary Catheter Date of Insertion: 06/29/21 Urinary Catheter Time of Insertion: 09:00 Data : 06/30/21 04:10 06/30/21 04:10 Micro: Microbiology 06/29/21 09:41 Urine Culture - Preliminary Urine Catheterized 06/29/21 09:44 MRSA Culture - Final Nose 06/29/21 09:41 Legionella Urinary Antigen - Final Urine Catheterized 06/29/21 09:41 Bacterial Antigens - Final Urine Kidney 06/29/21 09:58 Blood Culture - Preliminary Blood SPECIMEN COLLECTED 06/29/21 10:02 Blood Culture - Preliminary Blood SPECIMEN COLLECTED A&P Assessment and plan (1) Hypoxia: Continue to biotic coverage for pneumonia. Follow-up pending COVID-19 PCR. Follow-up echocardiogram which has been ordered. Continue anticoagulation due to tachycardia, elevated D-dimer, hypoxia. Cannot exclude possible PE. Monitor platelets, however. Down to 94,000 this morning. Continue oxygen support. On [facility] currently, 80% FiO2. Discussed with her differential diagnosis, current treatment plan. Status: Acute (2) Pneumonia: Status: Acute (3) Small bowel obstruction: Bowel rest, sips and chips. Status: Acute (4) Renal failure: With some improvement. Creatinine down to 1.3. Hold additional Lasix, avoid hypotension. History of right ureteral stent placement for obstruction secondary to recurrence of cancer. Status: Acute (5) Extrinsic ureteral obstruction: Status: Chronic (6) S/P ureteral stent placement: Status: Chronic (7) COPD (chronic obstructive pulmonary disease): Status: Acute (8) Ovarian cancer on right: Continue follow-up with Dr. Lynne. Status: Acute Attestations Medical Necessity Statement*: Continue admission for assessment of management of hypoxia, pneumonia, small bowel obstruction, acute kidney injury. 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
--- NOTE | 2021-06-30 08:47 | PC.CHAP ---
Pastoral Care Encounter/Spiritual Assessment Type of Contact [] Declined trailer park manager visit [] Patient/Family/Request visit [] Outpatient visit [] Follow-up visit [] Physician referral [] Code/Alert [x] Routine visit [] Staff referral [] Actively dying [x] Patient sleeping [] Family support [] [] Out of room [] Palliative care [] [] Receiving care in room [] Pre-surgical visit [] Trauma [] Long length of stay [x] ICU visit [x] Other: oxygen Relational/Emotional Strength [] Patient feels connected with others/family/visitors/staff [] Distress [] Loneliness/isolation [] Abandonment Spirituality of Patient [] Person of Anuradha [] Attends Sikhism of their Anuradha [] Believes in Prayer [] Reads Bible or Taoism materials [] There are Spiritual issues to be addressed Machine Load Clerk Interventions [x] Prayer [] Active listening [] Non-anxious presence [] Spiritual/emotional support [] Crisis/trauma care [] Spiritual counseling [] Bereavement support [] Provided bereavement packet [] Provided Bible/devotional materials [] Provided toy/stuffed animal, coloring book to patient or family member [] Provided Communion [] Anointing/Amelia [] Salvation [x] Completed spiritual assessment [] Other: Impact on Illness or Injury [] Angry [] Fearful [] Anxious [] Often cries [] Exhaustion [] Unable to work [] Unable to attend orthodoxy [] Unable to walk/stand [] Unable to read [] Unable to drive [] Unable to eat/drink [] Unable to sleep [] Unable to be with family [] Patient intubated [] Other: Summary Time spent with patient
[2021-06-30] MEDS: budesonide 0.5 mg/2 mL Neb INHALATION ×2 (08:59→20:17)
[2021-06-30] MEDS: enoxaparin 60 mg/0.6 mL Syringe SUBCUT ×2 (09:05→21:11)
[2021-06-30] MEDS: ondansetron 2 mg/ML SDV 2 mL 4 MG IVP ×2 (09:08→15:43)
[2021-06-30 09:50] LABS: Cortisol Random 90.71 ug/dL (2.47-19.5)
[2021-06-30] MEDS: bisacodyl 10 mg Supp PR (13:43)
[2021-06-30] MEDS: iron sucrose 200 MG in sodium chloride 0.9% (100 ml) 100 ML 220 MG IV (14:26)
[2021-06-30] MEDS: vancomycin 750 MG in sodium chloride 0.9% 250 ML 250 MG IV (14:27)
[2021-06-30 16:59] LABS: Quest SARS-CoV-2 RNA NOT DETECTED (NOT DETECTED)
[2021-06-30 18:12] LABS: Potassium 2.5 mmol/L (3.5-5.1)
--- NOTE | 2021-06-30 18:54 | XRR_ITS ---
PROCEDURE INFORMATION: Exam: XR Chest Exam date and time: 06/30/2021 6:54 PM Age: 61 years old Clinical indication: Shortness of breath; Prior surgery; Surgery type: Port; Additional info: Hypoxia TECHNIQUE: Imaging protocol: XR of the chest. Views: 1 view. COMPARISON: CR (CHEST, ) 06/30/2021 5:25 AM FINDINGS: Tubes, catheters and devices: Right chest port terminates at the cavoatrial junction. Lungs: Linear areas of scarring at the lower lungs. Medial right basilar consolidation. Pleural spaces: Similar left costophrenic blunting, likely secondary to scarring. No pneumothorax. Heart/Mediastinum: Unremarkable. No cardiomegaly. Bones/joints: Visualized osseous structures are intact. XR/XR chest 1V portable [id number] IMPRESSION: Medial right basilar consolidation, findings may reflect atelectasis or infection in the appropriate clinical setting.
--- NOTE | 2021-06-30 19:04 | PC.NURSE ---
Shift Note Frequent safety and comfort rounds continue. Orders and/or nursing care completed as indicated. Patient monitored for response to intervention and treatment(s). Education provided includes treatment plan, oxygen need, breathing techniques and medication regimen. Prior to shift change, pt o2 sat dropped into mid 80's, lung sounds no different than earlier assessment. Notified MD, CXR ordered, potassium to be repleted d/t level of 2.5. Pt placed on bipap per orders. Pt teaching provided r/t need for O@ and not ice chips at this time. No other issues. Will continue to monitor.
[2021-06-30] MEDS: methylnaltrexone 12 /0.6 mL INJ 12 MG SUBCUT (21:03)
[2021-06-30] MEDS: potassium chloride premix 100 ML 25 MEQ IV (22:44)
[2021-07-01] VITALS (37 sets, daily range): BP systolic 106–150; BP diastolic 69–99; PULSE 112–135; RESP 12–22; TEMP 36.2–37; O2SAT 87–96
[2021-07-01] MEDS: piperacillin-tazobactam 3.375 GM in sodium chloride 0.9% (plus) 50 ML IV ×3 (01:39→17:26)
[2021-07-01] MEDS: ipratropium-albuterol 3 mL Neb INHALATION ×6 (03:11→23:56)
--- NOTE | 2021-07-01 06:00 | XR_ITS ---
WS: [id number] XR chest 1V portable [id number] REASON FOR EXAM: Hypoxia FINDINGS: Bilateral infiltrates and loss of volume in the right lung. Compared to the previous examination of , areas of platelike atelectasis have developed in both lower lungs. No other interval change or new finding noted. XR/XR chest 1V portable [id number] IMPRESSION: Interval development of atelectasis in both lung bases as above.
[2021-07-01 06:07] LABS: Hematocrit 36.9 % (37.0-47.0); Hemoglobin 12.2 g/dL (11.5-15.3); Mean Corpuscular HGB Conc 33.1 g/dL (30.0-36.0); Mean Corpuscular Hemoglobin 34.8 pg (28.0-34.0); Mean Corpuscular Volume 105.1 fl (81-99); Mean Platelet Volume 11.9 fL (7.4-10.4); Platelet Count 83 10^3/cmm (130-400); Red Blood Count 3.51 10^6/uL (4.1-5.3); Red Cell Distribution Width 16.5 % (12.1-15.1)
[2021-07-01 06:17] LABS: Alanine Aminotransferase 14 U/L (0-33); Albumin Level 2.9 g/dL (3.5-5.2); Alkaline Phosphatase 48 IU/L (35-105); Aspartate Amino Transferase 18 U/L (0-32); Blood Urea Nitrogen 38 mg/dL (8-23); Calcium 8.5 mg/dL (8.5-10.5); Carbon Dioxide 29 mmol/L (22-29); Chloride 104 mmol/L (98-107); Globulin 3.3 g/dL (1.3-4.6); Glomerular Filtration Rate 72.4 mL/min (90-130); Glucose 103 mg/dL (65-115); Osmolality Calculated 307 mOsm/kg (285-295); Sodium 144 mmol/L (136-145); Total Protein 6.2 g/dL (6.6-8.7)
[2021-07-01 06:18] LABS: Anion Gap 14.2 (5-19); Potassium 3.2 mmol/L (3.5-5.1)
[2021-07-01 06:35] LABS: Absolute Neutrophil 6.7 10^3/cmm (1.4-6.5); Absolute Segmented Neutrophil 5.3 10/cmm (1.6-7.1); Band Neutrophils Absolute 1.4 10^3/cmm (0.0-1.2); Eosinophils 0 %; Lymphocytes 6 %; Lymphocytes Absolute 0.6 10^3/cmm (1.2-3.4); Monocytes Absolute 0.2 10^3/cmm (0.1-0.6); Platelet Estimate Decreased (Normal); Segmented Neutrophils 66 %; Slide Review Slide Review Perform; Total Cells Counted 100 (0-100)
[2021-07-01] MEDS: pantoprazole 40 mg SDV IVP ×2 (08:13→21:15)
[2021-07-01] MEDS: levothyroxine 100 mcg SDV 25 MCG IVP (08:13)
[2021-07-01] MEDS: lidocaine 1% 5 ML in potassium chloride premix 100 ML 50 ML IV (08:13)
[2021-07-01] MEDS: cyanocobalamin 1,000 mcg Tablet 500 MCG PO (08:13)
[2021-07-01] MEDS: folic acid 1 mg Tablet PO (08:14)
[2021-07-01] MEDS: azithromycin 500 MG in sodium chloride 0.9% 250 ML 250 MG IV (08:14)
[2021-07-01] MEDS: budesonide 0.5 mg/2 mL Neb INHALATION ×2 (08:36→19:55)
--- NOTE | 2021-07-01 08:56 | CT_ITS ---
WS: [id number] CT angio chest PE protcl [id number] REASON FOR EXAM: hypoxia, tachycardia TECHNIQUE: Coronal and sagittal 2-D and MIP reformations. IV CONTRAST ADMINISTERED: 95 mL of Omnipaque 350 TOTAL EXAM DLP: 457.[address] scans at [facility] use at least one of these dose optimization techniques: automat ed exposure control; mA and/or kV adjustment per patient size (includes targeted exams where dose is matched to clinical indication); or iterative reconstruction. FINDINGS: Previous CT of the chest demonstrated multiple patchy areas of groundglass density and more focal con solidation throughout both lungs. The current examination demonstrates extensive central lobar emphysema with multiple cysts diffusely throughout both lungs. There are multiple areas of groundglass density and reticular interstitial inf iltrates. There are multiple cystic like areas with enhancing rims. There is now extensive consolidation in both lower lobes with air bronchograms and volume loss repres enting a dramatic change from the previous examination. The bronchi are mildly dilated. No significant pleural fluid. CT/CT angio chest PE protcl [id number] IMPRESSION: Progression in the abnormalities previously seen in the chest on an outside CT scan. Most dramatically, the consolidation in the lower lobes. While there is a telectasis in the lower lobes, especially on the left for the most part these f indings do not represent atelectasis, since there are air bronchograms, but rep resent lung parenchyma consolidation/alveolar filling. This could be inflammato ry and/or hemorrhage. It has developed rather rapidly. The cystic-appearing lesions could represent central lobar emphysema with infla mmatory change, inflammatory pneumatoceles, or less likely small lung abscesses .
--- NOTE | 2021-07-01 09:12 | PM.PN ---
Subjective Subjective: Interval history: She is doing better today. She is having some discomfort in her abdomen after taking her morning medications. She denies nausea. Has had no vomiting. Yesterday after Relistor had a bowel movement. Vitals/I&O/Wt Last Vital Signs Temp 98.5 F 07/01/21 08:00 Pulse 117 H 07/01/21 08:37 Resp 16 07/01/21 08:37 BP 138/85 07/01/21 08:00 Pulse Ox 92 07/01/21 08:37 06/30/21 07/01/21 07/01/21 22:59 06:59 14:59 Intake Total 635 / 1502 250 / 1752 Output Total 1300 / 1300 900 / 2200 Balance -665 / 202 -650 / -448 Weight last 48 hrs Weight 55.248 kg Weight 57.834 kg Physical Exam Const: COMMON NORMALS: no acute distress and patient oriented x3 OTHER: BiPAP on. HENMT: COMMON NORMALS: oropharynx normal Neck/C-Spine: COMMON NORMALS: no JVD Resp: COMMON NORMALS: normal respiratory effort AUSCULTATION: diminished lung sounds bilateral in the lower lung shelley Cardio: COMMON NORMALS: no JVD, regular rhythm, S1 normal heart sound present, S2 normal heart sound present and No murmurs present (Cardio) RATE: tachycardic RHYTHM: regular rhythm HEART SOUNDS: S1 normal heart sound present and S2 normal heart sound present GI: COMMON NORMALS: Soft to palpation and non-tender AUSCULTATION: Yes Hypoactive bowel sounds present PALPATION: Yes Soft to palpation Extremity: COMMON NORMALS: no joint enlargement and no pedal edema Neuro: COMMON NORMALS: patient oriented x3 and moves all extremities Skin: COMMON NORMALS: no rashes or lesions noted GENERAL SKIN EXAM: no rashes or lesions noted Urinary Catheter Management^: Joseph: Cath Placed During This Visit: yes Reason for Continuing Indwelling Catheter: Accurate Measurement of Urinary Output in Critically Ill Patients Urinary Catheter Date of Insertion: 06/29/21 Urinary Catheter Time of Insertion: 09:00 Data : 07/01/21 05:20 07/01/21 05:20 Micro: Microbiology 06/29/21 09:41 Urine Culture - Final Urine Catheterized 06/29/21 09:58 Blood Culture - Preliminary Blood NEGATIVE TO DATE 06/29/21 10:02 Blood Culture - Preliminary Blood NEGATIVE TO DATE A&P Assessment and plan (1) Hypoxia: Doing better today. Down to requiring 80% FiO2. Still on BiPAP. If continues to do well, could trial again high flow cannula. COVID-19 PCR negative. Collect sputum cultures if able to provide. Continue empiric antibiotic treatment. So far has had no recurrence of vomiting. Continue bowel regimen. She is prone to opiate induced ileus. Follow up TTE. CTA due to persistent tachycardia, hypoxia. Decreasing PLT. Status: Acute (2) Pneumonia: Status: Acute (3) Small bowel obstruction: Improved. Patient is very prone to opiate induced ileus. Had a bowel movement after Relistor. Have it available in case of recurrence of symptoms. Status: Acute (4) Renal failure: Continues to improve. Creatinine normalized. Hold additional Lasix, avoid hypotension. History of right ureteral stent placement for obstruction secondary to recurrence of cancer. Status: Acute (5) Extrinsic ureteral obstruction: Status: Chronic (6) S/P ureteral stent placement: Status: Chronic (7) COPD (chronic obstructive pulmonary disease): Status: Acute (8) Ovarian cancer on right: Continue follow-up with Dr. Lynne. Status: Acute Attestations Medical Necessity Statement*: Continue mission for management of hypoxic respiratory failure, pneumonia. Coding Level of Care Code Acute Loss Control Technician for [facility] Diagnoses Hypoxia R09.02 Pneumonia J18.9 Small bowel obstruction K56.609 Renal failure N19 Extrinsic ureteral obstruction N13.5 S/P ureteral stent placement Z96.0 COPD (chronic obstructive pulmonary disease) J44.9 Ovarian cancer on right C56.1
[2021-07-01] MEDS: enoxaparin 60 mg/0.6 mL Syringe SUBCUT (09:24)
[2021-07-01] MEDS: iohexol 350 mg/mL 100 mL Btl IV (10:34)
[2021-07-01] MEDS: HYDROmorphone 1 mg/mL INJ 1 mL IVP ×2 (10:42→14:37)
--- NOTE | 2021-07-01 10:51 | PC.NURSE ---
Pt taken to CT on NRB. Tolerated well. When back to room, pt transferred to chair in room and placed on bipap. Dilaudid 1mg IV given per orders d/t pain 06/27. Will monitor.
[2021-07-01 14:10] LABS: Vancomycin Trough < 4.0 ug/mL (10-15)
[2021-07-01] MEDS: vancomycin 750 MG in sodium chloride 0.9% 250 ML 250 MG IV (14:15)
[2021-07-01] MEDS: iron sucrose 200 MG in sodium chloride 0.9% (100 ml) 100 ML 220 MG IV (14:15)
--- NOTE | 2021-07-01 15:55 | PC.RESP ---
RT Shift Note Frequent safety and respiratory rounds continue. Orders completed as indicated. Patient monitored pre and post treatments throughout shift. Patient [Did.] tolerate treatments appropriately. Condition [DidNotChange]. Patient and/or quality assurance representative educated on respiratory treatment and medications. Patient and/or quality assurance representative [verbalized understanding. Will continue to monitor patient progress.
[2021-07-01] MEDS: morphine 4 mg/mL SDV 1 mL 2 MG IVP (16:14)
--- NOTE | 2021-07-01 19:06 | PC.NURSE ---
Shift Note Frequent safety and comfort rounds continue. Orders and/or nursing care completed as indicated. Patient monitored for response to intervention and treatment(s). Education provided includes treatment plan, oxygen needs and breathing treatments. Verbalizes understanding. Will continue to monitor.
[2021-07-01] MEDS: heparin 5,000 unit/mL INJ 1 mL 5000 UNIT SUBCUT (21:15)
[2021-07-02] VITALS (29 sets, daily range): BP systolic 128–158; BP diastolic 81–96; PULSE 92–134; RESP 13–27; TEMP 36.8–37.2; O2SAT 89–98; BMI 19.1
[2021-07-02] MEDS: metoprolol tartrate 1 mg/1 mL SDV 5 mL 2.5 MG IVP (00:25)
[2021-07-02] MEDS: piperacillin-tazobactam 3.375 GM in sodium chloride 0.9% (plus) 50 ML IV (02:24)
[2021-07-02] MEDS: ipratropium-albuterol 3 mL Neb INHALATION ×5 (03:32→23:28)
[2021-07-02 05:56] LABS: Basophils # 0.1 10^3/uL (0.0-0.1); Eosinophils % 0.1 %; Hematocrit 33.1 % (37.0-47.0); Hemoglobin 10.9 g/dL (11.5-15.3); Lymphocytes # 0.3 10^3/uL (0.8-4.8); Mean Corpuscular HGB Conc 32.9 g/dL (30.0-36.0); Mean Corpuscular Hemoglobin 34.9 pg (28.0-34.0); Mean Corpuscular Volume 106.1 fl (81-99); Monocytes # 0.4 10^3/uL (0.2-0.9); Monocytes % 5.1 %; Neutrophils # 7.62 10^3/uL (1.8-7.7); Neutrophils % 87.8 %; Nucleated Red Blood Cells % 0 %; Red Blood Count 3.12 10^6/uL (4.1-5.3); Red Cell Distribution Width 16.9 % (12.1-15.1); White Blood Count 8.7 10^3/uL (4.0-10.0)
--- NOTE | 2021-07-02 06:00 | XR_ITS ---
WS: [id number] XR chest 1V portable [id number] REASON FOR EXAM: covid FINDINGS: Compared to the examination of the previous day, the areas of atelectasis in the lower lung shelley ar e resolving. Increased aeration of the right lower lung. Bilateral infiltrative changes stable. No ne w findings. XR/XR chest 1V portable [id number] IMPRESSION: Abnormal chest with some improvement as above.
[2021-07-02 06:15] LABS: Alanine Aminotransferase 14 U/L (0-33); Albumin Level 2.8 g/dL (3.5-5.2); Alkaline Phosphatase 54 IU/L (35-105); Anion Gap 12.8 (5-19); Aspartate Amino Transferase 18 U/L (0-32); Blood Urea Nitrogen 26 mg/dL (8-23); Carbon Dioxide 31 mmol/L (22-29); Chloride 114 mmol/L (98-107); Globulin 3.1 g/dL (1.3-4.6); Glucose 88 mg/dL (65-115); Osmolality Calculated 324 mOsm/kg (285-295); Sodium 155 mmol/L (136-145); Total Bilirubin 0.9 mg/dL (0.15-1.2); Total Protein 5.9 g/dL (6.6-8.7)
[2021-07-02 06:31] LABS: Potassium 2.8 mmol/L (3.5-5.1)
[2021-07-02] MEDS: vancomycin 750 MG in sodium chloride 0.9% 250 ML 250 MG IV (06:49)
[2021-07-02 06:55] LABS: Platelet Count 60 10^3/cmm (130-400); Slide Review Slide Review Perform
[2021-07-02] MEDS: budesonide 0.5 mg/2 mL Neb INHALATION ×2 (08:00→20:22)
[2021-07-02] MEDS: folic acid 1 mg Tablet PO (08:15)
[2021-07-02] MEDS: potassium chloride oral liq 20 mEq/15 mL UDC 40 MEQ PO (08:15)
[2021-07-02] MEDS: pantoprazole 40 mg SDV IVP ×2 (08:15→21:37)
[2021-07-02] MEDS: cyanocobalamin 1,000 mcg Tablet 500 MCG PO (08:15)
[2021-07-02] MEDS: levothyroxine 100 mcg SDV 25 MCG IVP (08:15)
[2021-07-02] MEDS: heparin 5,000 unit/mL INJ 1 mL 5000 UNIT SUBCUT ×2 (08:16→21:42)
--- NOTE | 2021-07-02 08:31 | P.PN_ITS ---
Subjective Subjective: Interval history: Overall she is doing okay this morning. Her nurse has been encouraging her to work with I-S, flutter valve. She has been now coughing up some phlegm. She has been wanting to eat. Vitals/I&O/Wt Last Vital Signs Temp 97.8 F 07/01/21 20:00 Pulse 119 H 07/02/21 08:05 Resp 19 H 07/02/21 08:05 BP 130/81 07/02/21 05:00 Pulse Ox 94 07/02/21 08:05 07/01/21 07/02/21 07/02/21 22:59 06:59 14:59 Intake Total 1030 / 1435 50 / 1485 250 / 250 Output Total 850 / 850 800 / 1650 Balance 180 / 585 -750 / -165 250 / 250 Weight last 48 hrs Weight 55.248 kg Weight 55.248 kg Physical Exam Const: COMMON NORMALS: no acute distress and patient oriented x3 OTHER: HHF HENMT: COMMON NORMALS: oropharynx normal Neck/C-Spine: COMMON NORMALS: no JVD Resp: COMMON NORMALS: normal respiratory effort AUSCULTATION: rhonchi right lower, wheezes right lower and diminished lung sounds on the left in the lower lung shelley Cardio: COMMON NORMALS: no JVD, regular rhythm, S1 normal heart sound present, S2 normal heart sound present and No murmurs present (Cardio) RATE: tachycardic RHYTHM: regular rhythm HEART SOUNDS: S1 normal heart sound present and S2 normal heart sound present GI: COMMON NORMALS: Soft to palpation and non-tender AUSCULTATION: Yes Hypoactive bowel sounds present PALPATION: Yes Soft to palpation Extremity: COMMON NORMALS: no joint enlargement and no pedal edema Neuro: COMMON NORMALS: patient oriented x3 and moves all extremities Skin: COMMON NORMALS: no rashes or lesions noted GENERAL SKIN EXAM: no rashes or lesions noted Urinary Catheter Management^: Joseph: Cath Placed During This Visit: yes Reason for Continuing Indwelling Catheter: Accurate Measurement of Urinary Output in Critically Ill Patients Urinary Catheter Date of Insertion: 06/29/21 Urinary Catheter Time of Insertion: 09:00 Data : 07/02/21 05:40 07/02/21 05:40 Micro: Microbiology 06/29/21 09:41 Urine Culture - Final Urine Catheterized A&P Assessment and plan (1) Hypoxia: Overall slightly better, persistently requiring 75% FiO2. Discussed with her findings on the CT scan with ring-enhancing lesions, concern for possible lung abscesses. Discussed also with pulmonology who will be further considering benefits and risks of additional bronchoscopic evaluation and BAL. Continue IV antibiotics. COVID-19 PCR negative. Continue to encourage use of I-S, flutter valve. So far has had no recurrence of vomiting. Continue bowel regimen. She is prone to opiate induced ileus. Follow up TTE. CTA due to persistent tachycardia, hypoxia. Decreasing PLT. Status: Acute (2) Pneumonia: Status: Acute (3) Small bowel obstruction: So far appears to have been resolving. Will trial clear liquids as she is wanting to eat. Patient is very prone to opiate induced ileus. Had a bowel mo vement after Relistor. Have it available in case of recurrence of symptoms. Continue standing bowel regimen. Status: Acute (4) Renal failure: Continues to improve. Creatinine normalized. Hold additional Lasix, av oid hypotension. History of right ureteral stent placement for obstruction secondary to recurrence of cancer. Status: Acute (5) Extrinsic ureteral obstruction: Status: Chronic (6) S/P ureteral stent placement: Status: Chronic (7) COPD (chronic obstructive pulmonary disease): Status: Acute (8) Ovarian cancer on right: Continue follow-up with Dr. Lynne. Status: Acute Attestations Medical Necessity Statement*: Continue admission for assessment of management of hypoxic respiratory failure with possible lung abscesses. Coding Level of Care Code Acute Mirror Fabrication Supervisor for [facility] Diagnoses Hypoxia R09.02 Pneumonia J18.9 Small bowel obstruction K56.609 Renal failure N19 Extrinsic ureteral obstruction N13.5 S/P ureteral stent placement Z96.0 COPD (chronic obstructive pulmonary disease) J44.9 Ovarian cancer on right C56.1
[2021-07-02] MEDS: polyethylene glycol 3350 Pkt 17 gm PO ×2 (08:43→17:36)
[2021-07-02 09:03] LABS: Magnesium 2.2 mg/dL (1.7-2.3)
--- NOTE | 2021-07-02 09:09 | PC.CHAP ---
Pastoral Care Encounter/Spiritual Assessment Type of Contact [] Declined machine room operator visit [] Patient/Family/Request visit [] Outpatient visit [] Follow-up visit [] Physician referral [] Code/Alert [x] Routine visit [] Staff referral [] Actively dying [] Patient sleeping [] Family support [] [] Out of room [] Palliative care [] [] Receiving care in room [] Pre-surgical visit [] Trauma [] Long length of stay [x] ICU visit [] Other: Relational/Emotional Strength [] Patient feels connected with others/family/visitors/staff [] Distress [] Loneliness/isolation [] Abandonment Spirituality of Patient [] Person of Anuradha [] Attends Adventism of their Anuradha [] Believes in Prayer [] Reads Bible or Alevism materials [] There are Spiritual issues to be addressed Framing Machine Tender Interventions [x] Prayer [] Active listening [] Non-anxious presence [] Spiritual/emotional support [] Crisis/trauma care [] Spiritual counseling [] Bereavement support [] Provided bereavement packet [] Provided Bible/devotional materials [] Provided toy/stuffed animal, coloring book to patient or family member [] Provided Communion [] Anointing/[place] [] Salvation [x] Completed spiritual assessment [] Other: Impact on Illness or Injury [] Angry [] Fearful [] Anxious [] Often cries [] Exhaustion [] Unable to work [] Unable to attend restoration [] Unable to walk/stand [] Unable to read [] Unable to drive [] Unable to eat/drink [] Unable to sleep [] Unable to be with family [] Patient intubated [] Other: Summary patient stronger today.. patient states she feels better Time spent with patient 10 min
[2021-07-02] MEDS: piperacillin-tazobactam 3.375 GM in dextrose 5% (plus) 50 ML IV ×2 (09:24→17:28)
--- NOTE | 2021-07-02 09:57 | PC.NURSE ---
Pt to go for bronchoscopy this AM, procedure explained to pt by , consent obtained from pt and placed in chart. Pt NPO at 0952 for procedure.
--- NOTE | 2021-07-02 10:43 | PM.CONSULT ---
Providers/Reason For Consult Consulting Physician/Specialty*: Pulmonary critical care medicine Reason for Consult*: Pneumonia with acute hypoxic respiratory failure Attending Physician: Kailash Davis Primary Care Provider: Ravi Lynne MD History of Present Illness History of Present Illness Nisreen Carrasco is a 61 year old female with a past medical history of hypertension, hyperlipidemia, chronic anxiety depression, recurrent ovarian cancer, previous history of small bowel obstruction, ureteral obstruction and hydronephrosis requiring right ureteral stent placement who presented to the hospital on June 29 with shortness of breath for 4 to 5 days. The patient also suffered from nausea, abdominal pain decreased appetite and poor oral intake. The patient was eventually diagnosed with low-grade small bowel obstruction which has improved. During the initial work-up, the patient was found to have bilateral pulmonary infiltrate. She was treated with broad-spectrum antibiotic, anticoagulation for suspected PE. The patient required BiPAP after her respiratory status had gotten worse on high flow nasal cannula. Over the past couple of days her respiratory functions had been slowly getting better. Initially the patient had an VIV which had improved. The patient underwent a CT angiogram of the chest on July 01. The CT scan of the chest revealed bilateral centrilobular emphysema. The patient has bilateral infiltrate in addition, the patient has cystic lesions in the right middle lobe. Her recent CT scan of the chest abdomen and pelvis from June 06 did not reveal any cystic changes. The patient was seen and examined in the ICU. She is resting comfortably in bed. On high flow nasal cannula 75% oxygen saturation in the mid 90s. The patient tells me that she is feeling better. She wants to go home. She denies any fever, has occasional cough, minimal sputum production and shortness of breath with exertion which includes moving around the bed. Review of Systems Narrative: General: No fevers or chills Skin: No rash HEENT: No nasal congestion, rhinitis Neck: There is no neck swelling, mass or swollen glands. Respiratory: Please see my HPI. Cardiovascular: No chest pain, no lower extremity edema Gastrointestinal: No abdominal pain, nausea, vomiting Musculoskeletal: No joint pain or swelling Neurological: Patient is awake alert and oriented x3, no paralysis, gross motor function is normal. Psychiatric: Anxiety Meds/Allergies Home Medications and Allergies Home Medications Medication Instructions Recorded Confirmed Last Taken Type albuterol sulfate 90 mcg/actuation 2 inh INHALATION Q6H PRN 11/29/19 06/29/21 06/28/21 14:00 History breath activated powder inhaler biotin 1,000 mcg chewable tablet 1,000 mcg PO DAILY 11/29/19 06/29/21 09/04/20 History carisoprodol 350 mg tablet 350 mg PO TID 11/29/19 06/29/21 06/28/21 21:00 History enalapril maleate 10 mg tablet 10 mg PO BID 11/29/19 06/29/21 06/28/21 21:00 History esomeprazole magnesium 40 mg 40 mg PO BID cap 11/29/19 06/29/21 06/28/21 21:00 History capsule,delayed release guaifenesin 600 mg tablet, 600 mg PO Q12H PRN 11/29/19 06/29/21 04/24/20 History extended release 12 hr levothyroxine 50 mcg tablet 50 mcg PO DAILY 11/29/19 06/29/21 06/28/21 08:00 History magnesium oxide 500 mg capsule 500 mg PO DAILY 11/29/19 06/29/21 09/04/20 History oxycodone 20 mg tablet 20 mg PO Q6H PRN 11/29/19 06/29/21 06/28/21 21:00 History potassium gluconate 595 mg (99 mg) 595 mg PO DAILY 11/29/19 06/29/21 09/04/20 History tablet pregabalin 150 mg capsule 150 mg PO TID 11/29/19 06/29/21 06/28/21 21:00 History rivaroxaban 20 mg tablet 20 mg PO DAILY 11/29/19 06/29/21 06/28/21 08:00 History venlafaxine 150 mg 150 mg PO DAILY 11/29/19 06/29/21 06/28/21 08:00 History capsule,extended release 24 hr trazodone 150 mg PO BEDTIME 12/01/19 06/29/21 06/28/21 21:00 History fentanyl 2 patch TOPICAL Q72H 12/04/19 06/29/21 06/26/21 08:00 History amlodipine 5 mg PO DAILY 09/04/20 06/29/21 06/28/21 08:00 History Allergies Allergy/AdvReac Type Severity Reaction Status Date / Time carboplatin AdvReac ADR-Vomitin Verified 03/10/21 11:00 g Current Medications Current Medications Generic Name Dose Route Start Last Admin Trade Name Freq PRN Reason Stop Dose Admin Albuterol/Ipratropium 3 ml 06/29/21 12:00 07/02/21 07:38 Ipratropium-Albuterol 3 Ml Neb INHALATION 3 ml Q4H.RESPIRATORY MORRIS Administration Budesonide 0.5 mg 06/29/21 18:00 07/02/21 08:00 Budesonide 0.5 Mg/2 Ml Neb INHALATION 0.5 mg BID MORRIS Administration Cyanocobalamin 500 mcg 06/30/21 09:00 07/02/21 08:15 Cyanocobalamin 1,000 Mcg Tablet PO 500 mcg DAILY MORRIS Administration Fentanyl 2 patch 06/29/21 13:30 06/29/21 16:38 Fentanyl 100 Mcg Patch TRANSDERMA 2 patch Q72H MORRIS Administration Folic Acid 1 mg 06/30/21 09:00 07/02/21 08:15 Folic Acid 1 Mg Tablet PO 1 mg DAILY MORRIS Administration Furosemide 40 mg 06/29/21 09:45 06/30/21 08:41 Furosemide 10 Mg/Ml Sdv 4ml IVP 40 mg Q12H MORRIS Administration Heparin Sodium (Beef Lung) 5,000 unit 07/01/21 21:00 07/02/21 08:16 Heparin 5,000 Unit/Ml Inj 1 Ml SUBCUT 5,000 unit Q12H MORRIS Administration Hydromorphone HCl 1 mg 06/29/21 23:13 07/01/21 14:37 Hydromorphone 1 Mg/Ml Inj 1 Ml IVP 1 mg Q4H PRN Administration PAIN Iron Sucrose 200 mg/ Sodium 110 mls @ 220 mls/hr 06/29/21 14:00 07/01/21 15:21 Chloride IV 07/03/21 14:29 Infused Q24H MORRIS Infusion Azithromycin 500 mg/ Dextrose 250 mls @ 250 mls/hr 07/02/21 09:00 07/02/21 09:31 IV Infused DAILY MORRIS Infusion Protocol Piperacillin Sod/Tazobactam 50 mls @ 12.5 mls/hr 07/02/21 10:00 07/02/21 09:24 Sod 3.375 gm/ Dextrose IV 12.5 mls/hr Q8H MORRIS Administration Protocol Levothyroxine Sodium 25 mcg 07/01/21 09:00 07/02/21 08:15 Levothyroxine 100 Mcg Sdv IVP 25 mcg DAILY MORRIS Administration Metoprolol Tartrate 2.5 mg 06/29/21 16:32 07/02/21 00:25 Metoprolol Tartrate 1 Mg/1 Ml Sdv 5 Ml IVP 2.5 mg Q4H PRN Administration For heart rate more than 100 b Morphine Sulfate 2 mg 06/29/21 09:14 07/01/21 16:14 Morphine 4 Mg/Ml Sdv 1 Ml IVP 2 mg Q4H PRN Administration SEVERE PAIN Ondansetron HCl 4 mg 06/29/21 09:14 06/30/21 15:43 Ondansetron 2 Mg/Ml Sdv 2 Ml IVP 4 mg Q6H PRN Administration vomiting, or N/V if npo Pantoprazole Sodium 40 mg 06/29/21 09:15 07/02/21 08:15 Pantoprazole 40 Mg Sdv IVP 40 mg Q12H MORRIS Administration Polyethylene Glycol 17 gm 07/02/21 09:00 07/02/21 08:43 Polyethylene Glycol 3350 Pkt 17 Gm PO 17 gm BID MORRIS Administration PFSH Acute PFSH: Medical History COPD (chronic obstructive pulmonary disease) Extrinsic ureteral obstruction Hydronephrosis, right Ovarian cancer on right Pelvic pain in female Recurrent UTI Secondary malignant neoplasm of other specified sites Small bowel obstruction Surgical History History of hysterectomy with bilateral oophorectomy History of right hemicolectomy S/P ureteral stent placement Family History Mother , at age 59 Cancer breast Myocardial infarction (lateral wall) Father Cancer prostate cancer Pacemaker Other CAD (coronary artery disease) Hypertension Social History Smoking and tobacco status: current every day smoker Alcohol intake: never Adopted: No Caregiver/support person: No Lives independently: No Household members: spouse Marital status: Current occupational status: disabled History of recent travel: No Female Reproductive History: Date of last menstrual period: 12/01/19 Vitals/I&O/Wt Last Vital Signs Temp 99.0 F 07/02/21 08:00 Pulse 119 H 07/02/21 08:05 Resp 19 H 07/02/21 08:05 BP 143/83 07/02/21 08:00 Pulse Ox 94 07/02/21 08:05 07/01/21 07/02/21 07/02/21 22:59 06:59 14:59 Intake Total 1030 / 1435 50 / 1485 980 / 980 Output Total 850 / 850 800 / 1650 Balance 180 / 585 -750 / -165 980 / 980 Weight last 48 hrs Weight 121 lb 12.8 oz Weight 121 lb 12.8 oz Physical Exam Narrative: EXAM NARRATIVE: General: Patient is awake alert and oriented, in no distress while resting. Neck: No JVD Respiratory: Auscultation: Reduced breath sound bilaterally, no crackles, wheezing and rhonchi diffusely primarily in the left lung Cardiovascular: Tachycardia, regular rhythm, S1-S2 present, no murmur, no peripheral edema. Abdomen: Soft, nontender, nondistended, positive bowel sound, previous healed surgical scars Skin: No rash Neuro: Mental status is normal, no gross cranial nerve deficit, normal motor and coordination. Urinary Catheter Management^: Joseph: Cath Placed During This Visit: yes Reason for Continuing Indwelling Catheter: Accurate Measurement of Urinary Output in Critically Ill Patients Urinary Catheter Date of Insertion: 06/29/21 Urinary Catheter Time of Insertion: 09:00 Data Micro: Micro: Microbiology 06/29/21 09:41 Urine Culture - Fi nal Urine Catheterize d A&P Assessment and plan (1) Multifocal pneumonia: This is a 61-year-old lady who had been hospitalized with acute hypoxic respiratory failure in the setting of multifocal pneumonia. The patient developed this illness in the setting of small bowel obstruction and had given history of vomiting in the past. The patient likely had aspiration event which had contributed to this multifocal pneumonia. The patient already has underlying emphysema which probably made the VQ mismatch even worse. Patient is currently broadly covered with antibiotic. She is on vancomycin, Zosyn and azithromycin. CT scan of the chest did not reveal any pulmonary embolism however the patient has developed cystic lesion in the right middle lobe. Although this could be secondary to the current pneumonic process, ruling out a fungal infection and PCP infection is crucial for this patient. The patient has recurrent ovarian cancer and is immunocompromised secondary to chemotherapy in the past. I had a conversation with the patient regarding performing bronchoscopy and bronchoalveolar lavage. I have explained the patient with detail of the procedure and the risks involved. I believe we will be able to safely extubate the patient after the procedure. She may need BiPAP for some time however she should be able to come back to high flow nasal cannula. I am not going to perform any biopsies. Status: Acute (2) Acute respiratory failure with hypoxia: Patient is on high flow nasal cannula 75% oxygen. We will continue with the supportive therapy. I am hoping this is, continue to get better. Status: Acute (3) COPD (chronic obstructive pulmonary disease): The patient has evidence of emphysema on the CT scan of the chest. She is a current everyday smoker. Status: Acute (4) COPD exacerbation: The patient has diffuse wheezing likely secondary to COPD exacerbation in the setting of pneumonia. I will to start the patient on Solu-Medrol 30 mg IV daily for 5 days. Although I do have suspicion for a fungal infection. The radiologic appearance is not very consistent with a fungal infection. Status: Acute Coding Level of Care Code Acute Safety Belt Installer for [facility] Diagnoses Multifocal pneumonia J18.9 Acute respiratory failure with hypoxia J96.01 COPD (chronic obstructive pulmonary disease) J44.9 COPD exacerbation J44.1
--- NOTE | 2021-07-02 10:43 | PC.NURSE ---
Pt going to GI lab via w/c with RN. MADDOX in place.
[2021-07-02] MEDS: sodium chloride 0.9% 1,000 ML 30 ML IV (11:21)
--- NOTE | 2021-07-02 12:14 | PM.OP ---
Operative Report Date of procedure: July 02, 2021 Pre-op Diagnosis: Multifocal pneumonia Post-op diagnosis: same Brief History: This is a 58-year-old lady with multifocal pneumonia acute hypoxic respiratory failure. She was found to have cystic lesion on the CT scan of the chest and undergoing bronchoscopic evaluation. Procedure: Name of the procedure: Bronchoscopy with bronchoalveolar lavage and control of bleeding. Indication: Multifocal pneumonia with cystic lesion on the CT scan of the chest Anesthesia: Monitored anesthesia care. Local anesthesia: 1% lidocaine instilled on the vocal cords, 3 mL, 1% lidocaine in the airway and yarely a total of 6 mL. Description of the procedure: The patient was positioned optimally. Monitored anesthesia care was initiated by the anesthesia team. The bronchoscope was advanced through the mouth. The vocal cords and epiglottis were anesthetized with 1% lidocaine. The vocal cords are normal. The bronchoscope was passed through the vocal cords and the airway was anesthetized with 1% lidocaine again. The upper and lower trachea are normal. The yarely and right and left mainstem bronchus were anesthetized with 1% lidocaine. Bilateral airways were then examined in a systematic manner. The bronchoscope was introduced into the left mainstem bronchus. The left upper lobe, lingula and lower lobe bronchi were examined up to the third subsegmental level. No endobronchial lesion or bleeding was noted. The bronchoscope was then introduced into the right mainstem bronchus. The right upper lobe, middle lobe and lower lobe bronchi were examined up to the third subsegmental level and no abnormalities were identified. Significant mucus was noted throughout the airways. Bronchoalveolar lavage was obtained from the medial segment of right middle lobe. 60 cc of fluid was instilled, fluid return was 15 mL. The fluid was cloudy. The bronchoalveolar lavage specimen was sent for Gram stain and culture, fungal stain and culture, AFB stain and culture, Aspergillus galactomannan, histoplasma galactomannan, PCP PCR. Complications: There is no immediate complications. Duration of the procedure: 3 minutes.
--- NOTE | 2021-07-02 12:16 | P.ANESASSM_ITS ---
Pre-Anesthetic Assessment Pre-Anesthetic Assessment: Height/Weight: Height 1.7 m Weight 55.248 kg Temp Pulse Resp BP Pulse Ox 98.8 F 123 H 19 H 157/93 92 07/02/21 11:12 07/02/21 11:12 07/02/21 11:12 07/02/21 11:12 07/02/21 11:12 Preop Diagnosis: Multifocal pneumonia Proposed Procedure: Operation Date: 07/02/21 10:55 Proposed Procedures p Bronchoscopy(Not Applicable) - Biplab MD Chad Was Beta Magdalena taken within 24 hours: N/A Was Clonidine taken within 24 hours: N/A Last intake: Intake Last Liquid Date 07/02/21 Last Liquid Time 09:30 Last Solid Date 07/01/21 Social: Social History: Tobacco and No alcohol Exam: Pre-Anes Outpt Exam: alert and oriented x 3 Additional Exam Findings (including area of procedure): Tachy, rhonchi/rales Airway: Submandibular: WNL Cervical ROM: WNL MP: 2 Dentition: False Pulmonary: Pulmonary: COPD and SOB Comments: Increased O2 requirements CV/HEM: CV/HEM: HTN : : Chronic renal failure Anesthetic Plan: ASA status: 3 Anesthesia: General Meds/Allergies Current Medications: Current Medications Generic Name Dose Route Start Last Admin Trade Name Freq PRN Reason Stop Dose Admin Albuterol/Ipratrop ium 3 ml 06/29/21 12:00 07/02/21 07:38 Ipratropium-Albu terol 3 Ml Neb INHALATION 3 ml Q4H.RESPIRATORY S CH Administration Budesonide 0.5 mg 06/29/21 18:00 07/02/21 08:00 Budesonide 0.5 M g/2 Ml Neb INHALATION 0.5 mg BID MORRIS Administration Cyanocobalamin 500 mcg 06/30/21 09:00 07/02/21 08:15 Cyanocobalamin 1 ,000 Mcg Tablet PO 500 mcg DAILY MORRIS Administration Fentanyl 2 patch 06/29/21 13:30 06/29/21 16:38 Fentanyl 100 Mcg Patch TRANSDERMA 2 patch Q72H MORRIS Administration Folic Acid 1 mg 06/30/21 09:00 07/02/21 08:15 Folic Acid 1 Mg Tablet PO 1 mg DAILY MORRIS Administration Furosemide 40 mg 06/29/21 09:45 06/30/21 08:41 Furosemide 10 Mg /Ml Sdv 4ml IVP 40 mg Q12H MORRIS Administration Heparin Sodium (Be ef Lung) 5,000 unit 07/01/21 21:00 07/02/21 08:16 Heparin 5,000 Un it/Ml Inj 1 Ml SUBCUT 5,000 unit Q12H MORRIS Administration Hydromorphone HCl 1 mg 06/29/21 23:13 07/01/21 14:37 Hydromorphone 1 Mg/Ml Inj 1 Ml IVP 1 mg Q4H PRN Administration PAIN Iron Sucrose 200 m g/ Sodium 110 mls @ 220 mls /hr 06/29/21 14:00 07/01/21 15:21 Chloride IV Infused Q24H MORRIS Infusion Azithromycin 500 m g/ Dextrose 250 mls @ 250 mls /hr 07/02/21 09:00 07/02/21 09:31 IV Infused DAILY MORRIS Infusion Protocol Piperacillin Sod/T azobactam 50 mls @ 12.5 mls /hr 07/02/21 10:00 07/02/21 09:24 Sod 3.375 gm/ De xtrose IV 12.5 mls/hr Q8H MORRIS Administration Protocol Sodium Chloride 1,000 mls @ 30 ml s/hr 07/02/21 10:45 07/02/21 11:21 Sodium Chloride 0.9% IV 07/03/21 10:44 30 mls/hr .Q24H MORRIS Administration Levothyroxine Sodi um 25 mcg 07/01/21 09:00 07/02/21 08:15 Levothyroxine 10 0 Mcg Sdv IVP 25 mcg DAILY MORRIS Administration Metoprolol Tartrat e 2.5 mg 06/29/21 16:32 07/02/21 00:25 Metoprolol Tartr ate 1 Mg/1 Ml Sdv 5 Ml IVP 2.5 mg Q4H PRN Administration For heart rate mo re than 100 b Morphine Sulfate 2 mg 06/29/21 09:14 07/01/21 16:14 Morphine 4 Mg/Ml Sdv 1 Ml IVP 2 mg Q4H PRN Administration SEVERE PAIN Ondansetron HCl 4 mg 06/29/21 09:14 06/30/21 15:43 Ondansetron 2 Mg /Ml Sdv 2 Ml IVP 4 mg Q6H PRN Administration vomiting, or N/V if npo Pantoprazole Sodiu m 40 mg 06/29/21 09:15 07/02/21 08:15 Pantoprazole 40 Mg Sdv IVP 40 mg Q12H MORRIS Administration Polyethylene Glyco l 17 gm 07/02/21 09:00 07/02/21 08:43 Polyethylene Gly col 3350 Pkt 17 Gm PO 17 gm BID MORRIS Administration PFSH Anesthesia PFSH: Medical History COPD (chronic obstructive pulmonary disease) Extrinsic ureteral obstruction Hydronephrosis, right Ovarian cancer on right Pelvic pain in female Recurrent UTI Secondary malignant neoplasm of other specified sites Small bowel obstruction Surgical History History of hysterectomy with bilateral oophorectomy History of right hemicolectomy S/P ureteral stent placement Family History Mother , at age 59 Cancer breast Myocardial infarction (lateral wall) Father Cancer prostate cancer Pacemaker Other CAD (coronary artery disease) Hypertension Social History Smoking and tobacco status: current every day smoker Alcohol intake: never Adopted: No Caregiver/support person: No Lives independently: No Household members: spouse Marital status: Current occupational status: disabled History of recent travel: No Female Reproductive History: Date of last menstrual period: 12/01/19 Data Anesthesia CBC & Chem 7: 07/02/21 05:40 07/02/21 05:40 Other Labs: Laboratory Results - last 48 hr 06/29/21 06/30/21 07/01/21 09:20 16:55 05:20 WBC 8.0 RBC 3.51 L Hgb 12.2 Hct 36.9 L MCV 105.1 H MCH 34.8 H MCHC 33.1 RDW 16.5 H Plt Count 83 L MPV 11.9 H Neut % (Auto) Lymph % (Auto) Not Reportable [place] % (Auto) Not Reportable Eos % (Auto) Baso % (Auto) Neut # (Auto) Lymph # (Auto) Not Reportable [place] # (Auto) Not Reportable Eos # (Auto) Baso # (Auto) Nucleated RBC % (auto) Total Counted 100 Atypical Lymphs % 1.0 Absolute Neutrophils 6.7 H Segmented Neutrophils 66 Abs Segm Neuts (Man) 5.3 Band Neutrophils 18.0 Abs Band Neuts (Man) 1.4 H Absolute Lymphocytes 0.6 L Lymphocytes (Manual) 6 Monocytes (Manual) 2.0 Absolute Monocytes 0.2 Eosinophils (Manual) 0 Absolute Eosinophils 0.0 Basophils (Manual) 0.0 Absolute Basophils 0.0 Metamyelocytes 7.0 Nucleated RBCs # Platelet Estimate Decreased L Sodium Potassium 2.5 L* Chloride Carbon Dioxide Anion Gap BUN Creatinine GFR Calculation Glucose Calculated Osmolality Calcium Magnesium Total Bilirubin AST ALT Alkaline Phosphatase Total Protein Albumin Globulin Vancomycin Trough SARS-CoV-2 RNA (RT-PCR) Not detected 07/01/21 07/01/21 07/02/21 05:20 13:24 05:40 WBC 8.7 RBC 3.12 L Hgb 10.9 L Hct 33.1 L MCV 106.1 H MCH 34.9 H MCHC 32.9 RDW 16.9 H Plt Count 60 L MPV 12.0 H Neut % (Auto) 87.8 Lymph % (Auto) 3.0 [place] % (Auto) 5.1 Eos % (Auto) 0.1 Baso % (Auto) 1.0 Neut # (Auto) 7.62 Lymph # (Auto) 0.3 L [place] # (Auto) 0.4 Eos # (Auto) 0.0 Baso # (Auto) 0.1 Nucleated RBC % (auto) 0 Total Counted Atypical Lymphs % Absolute Neutrophils Segmented Neutrophils Abs Segm Neuts (Man) Band Neutrophils Abs Band Neuts (Man) Absolute Lymphocytes Lymphocytes (Manual) Monocytes (Manual) Absolute Monocytes Eosinophils (Manual) Absolute Eosinophils Basophils (Manual) Absolute Basophils Metamyelocytes Nucleated RBCs # 0.0 Platelet Estimate Sodium 144 Potassium 3.2 L Chloride 104 Carbon Dioxide 29 Anion Gap 14.2 BUN 38 H Creatinine 0.8 GFR Calculation 72.4 L Glucose 103 Calculated Osmolality 307 H Calcium 8.5 Magnesium Total Bilirubin 1.0 AST 18 ALT 14 Alkaline Phosphatase 48 Total Protein 6.2 L Albumin 2.9 L Globulin 3.3 Vancomycin Trough < 4.0 L SARS-CoV-2 RNA (RT-PCR) 07/02/21 07/02/21 05:40 05:40 WBC RBC Hgb Hct MCV MCH MCHC RDW Plt Count MPV Neut % (Auto) Lymph % (Auto) [place] % (Auto) Eos % (Auto) Baso % (Auto) Neut # (Auto) Lymph # (Auto) [place] # (Auto) Eos # (Auto) Baso # (Auto) Nucleated RBC % (auto) Total Counted Atypical Lymphs % Absolute Neutrophils Segmented Neutrophils Abs Segm Neuts (Man) Band Neutrophils Abs Band Neuts (Man) Absolute Lymphocytes Lymphocytes (Manual) Monocytes (Manual) Absolute Monocytes Eosinophils (Manual) Absolute Eosinophils Basophils (Manual) Absolute Basophils Metamyelocytes Nucleated RBCs # Platelet Estimate Sodium 155 H Potassium 2.8 L* Chloride 114 H Carbon Dioxide 31 H Anion Gap 12.8 BUN 26 H Creatinine 0.6 GFR Calculation 101.0 Glucose 88 Calculated Osmolality 324 H Calcium 9.0 Magnesium 2.2 Total Bilirubin 0.9 AST 18 ALT 14 Alkaline Phosphatase 54 Total Protein 5.9 L Albumin 2.8 L Globulin 3.1 Vancomycin Trough SARS-CoV-2 RNA (RT-PCR) Micro: Microbiology 06/29/21 09:41 Urine Culture - Final Urine Catheterized Cardiac Studies: No Data to Display
--- NOTE | 2021-07-02 12:32 | PC.NURSE ---
1215 Pt returned from GI lab with anesthesia and RN at bedside. Transferred to bed via staff. Connected to ICU monitor. VSS. NS stopped, restarted zosyn infusion.
[2021-07-02] MEDS: fentaNYL 100 mcg Patch 2 PATCH TRANSDERMA (13:28)
--- NOTE | 2021-07-02 14:05 | PC.SOCIAL ---
IMM Update: pg 2 of IMM updated and reviewed w/ patient. Copy provided.
--- NOTE | 2021-07-02 14:10 | ANE.PACU2 ---
Inpatient post-anesthesia follow up: Airway intact: Yes Vital signs: Temperature 98.4 F Pulse Rate [Therap y Changed] 112 Pulse Rate [Curren t] 119 Pulse Rate 115 Respiratory Rate [ Therapy 18 Changed] Respiratory Rate [ Current] 19 Respiratory Rate 13 Blood Pressure 156/94 Pulse Oximetry [Th erapy 92 Changed] Pulse Oximetry [Cu rrent] 94 Pulse Oximetry 94 Oxygen Delivery Me thod High Flow Nasal Ca nn[place] Oxygen Flow Rate [ Therapy 35 Changed] Oxygen Flow Rate [ Current] 35 Oxygen Flow Rate 15 Fraction of Inspir ed Oxygen [ 80 Therapy Changed] Fraction of Inspir ed Oxygen [ 75 Current] Fraction of Inspir ed Oxygen 75 Hydration adequate: Yes Nausea and vomiting: No Pain level: 2 Mental status: Baseline
[2021-07-02] MEDS: iron sucrose 200 MG in sodium chloride 0.9% (100 ml) 100 ML 220 MG IV (14:11)
[2021-07-02 18:48] LABS: Potassium 3.4 mmol/L (3.5-5.1)
--- NOTE | 2021-07-02 18:53 | PC.NURSE ---
Shift Note Frequent safety and comfort rounds continue. Orders and/or nursing care completed as indicated. Patient monitored for response to intervention and treatment(s). Education provided includes treatment plan and medication and bronch. Patient and/or transportation services representative verbalizes understanding. Pt denies any needs. Will continue to monitor.
[2021-07-02] MEDS: FUROsemide 10 mg/mL SDV 4mL 40 MG IVP (21:42)
[2021-07-02] MEDS: potassium chloride ER 20 mEq Tablet 40 MEQ PO (22:03)
[2021-07-03] VITALS (32 sets, daily range): BP systolic 126–156; BP diastolic 78–93; PULSE 91–131; RESP 13–24; TEMP 36.2–36.9; O2SAT 88–100; BMI 19.1
[2021-07-03] MEDS: HYDROmorphone 1 mg/mL INJ 1 mL IVP ×2 (01:38→05:57)
[2021-07-03] MEDS: ipratropium-albuterol 3 mL Neb INHALATION ×6 (03:39→23:04)
[2021-07-03 04:06] LABS: Basophils # 0.1 10^3/uL (0.0-0.1); Hematocrit 32.3 % (37.0-47.0); Hemoglobin 10.8 g/dL (11.5-15.3); Lymphocytes # 0.4 10^3/uL (0.8-4.8); Lymphocytes % 5.5 %; Mean Corpuscular HGB Conc 33.4 g/dL (30.0-36.0); Mean Corpuscular Volume 104.5 fl (81-99); Mean Platelet Volume 12.1 fL (7.4-10.4); Monocytes # 0.5 10^3/uL (0.2-0.9); Monocytes % 5.9 %; Neutrophils # 6.62 10^3/uL (1.8-7.7); Neutrophils % 86.7 %; Nucleated Red Blood Cells % 0 %; Platelet Count 68 10^3/cmm (130-400); Red Blood Count 3.09 10^6/uL (4.1-5.3); Red Cell Distribution Width 16.8 % (12.1-15.1); White Blood Count 7.6 10^3/uL (4.0-10.0)
[2021-07-03 04:23] LABS: Alanine Aminotransferase 16 U/L (0-33); Albumin Level 2.9 g/dL (3.5-5.2); Alkaline Phosphatase 58 IU/L (35-105); Blood Urea Nitrogen 17 mg/dL (8-23); Calcium 9.1 mg/dL (8.5-10.5); Carbon Dioxide 35 mmol/L (22-29); Chloride 106 mmol/L (98-107); Glomerular Filtration Rate 124.6 mL/min (90-130); Glucose 116 mg/dL (65-115); Osmolality Calculated 307 mOsm/kg (285-295); Sodium 147 mmol/L (136-145); Total Bilirubin 1.1 mg/dL (0.15-1.2); Total Protein 5.9 g/dL (6.6-8.7)
[2021-07-03 04:26] LABS: Anion Gap 9.6 (5-19); Aspartate Amino Transferase 19 U/L (0-32); Potassium 3.6 mmol/L (3.5-5.1)
[2021-07-03] MEDS: piperacillin-tazobactam 3.375 GM in dextrose 5% (plus) 50 ML IV ×3 (04:34→17:02)
[2021-07-03 04:46] LABS: Slide Review Slide Review Perform
--- NOTE | 2021-07-03 06:00 | USCV_ITS ---
Nisreen Carrasco Age: 61 Gender: F : 1960 Exam Date: 07/03/2021 06:21 Ordering Phys: Chad Canchola MD Technologist: Exam Location: [facility] [place]ication: CHF BP: 148 / 72 HR: 91 Rhythm: Sinus Technical Quality: Very technically difficult study MEASUREMENTS (Male / Female) Normal Values 2D ECHO LVOT Diameter 2.0 cm DOPPLER AV Peak Velocity 165.0 cm/s LVOT Peak Velocity 106.0 cm/s AV Area Cont Eq vti 2.4 cm squared AV Area Cont Eq pk 2.0 cm squared MV Area PHT 5.0 cm squared Mitral E to A Ratio 1.0 MV E' Velocity 80.0 cm/s TR Peak Velocity 165.0 cm/s TR Peak Gradient 10.9 mmHg TV Peak E Velocity 98.0 cm/s Right Atrial Pressure 3.0 mmHg Pulmonary Artery Systolic Pressu 13.9 mmHg FINDINGS Left Ventricle Normal left ventricular cavity size. Normal left ventricular systolic function. Left ventricular ejection fraction is estimated at 55-60 %. This study is inadequate for estimation of regional wall motion abnormality. Right Ventricle Normal right ventricular size and systolic function. RVSP could not be calculated due to incomplete tricuspid regurgitation velocity profile. Right Atrium Probably normal left atrial size. Left Atrium Left atrium not well visualized. Mitral Valve Structurally normal mitral valve. Aortic Valve Structurally normal trileaflet aortic valve. No aortic valve stenosis. No aortic valve stenosis. Mild aortic valve regurgitation. Tricuspid Valve Structurally normal tricuspid valve. Trace tricuspid valve regurgitation. Pulmonic Valve Pulmonic valve not well visualized. Trace pulmonary valve regurgitation. Pericardium No pericardial effusion. Aorta Aorta not well visualized. Normal-sized inferior vena cava. CONCLUSIONS 1. This is a technically very difficult study with no parasternal or apical windows. 2. Normal left ventricular cavity size and systolic function. Left ventricular ejection fraction is estimated at 55-60 %. This study is inadequate for estimation of regional wall motion abnormality. 3. Mild aortic valve regurgitation. 4. There may not have been any significant change when compared to previous echocardiogram dated 12/31/2015. Berna Muniz MD (Electronically Signed) Final Date: 03 July 2021 18:28 S
--- NOTE | 2021-07-03 08:26 | P.PN_ITS ---
Subjective Subjective: Interval history: States she is doing about okay. She is trying to work with her incentive spirometer, flutter valve. Stated that she is very hungry. Her tray is on the way. She states she is passing some flatus but not much. Has not had a bowel movement since the last 1 2 days ago. Vitals/I&O/Wt Last Vital Signs Temp 98.4 F 07/03/21 04:00 Pulse 93 07/03/21 06:00 Resp 24 H 07/03/21 05:57 BP 150/81 07/03/21 04:00 Pulse Ox 100 07/03/21 05:57 07/02/21 07/03/21 07/03/21 22:59 06:59 14:59 Intake Total 900 / 2340 490 / 2830 Output Total 550 / 550 2475 / 3025 Balance 350 / 1790 -1985 / -195 Weight last 48 hrs Weight 55.248 kg Weight 55.248 kg Physical Exam Const: COMMON NORMALS: no acute distress and patient oriented x3 OTHER: HHF HENMT: COMMON NORMALS: oropharynx normal Neck/C-Spine: COMMON NORMALS: no JVD Resp: COMMON NORMALS: normal respiratory effort AUSCULTATION: crackles Cardio: COMMON NORMALS: no JVD, regular rhythm, S1 normal heart sound present, S2 normal heart sound present and No murmurs present (Cardio) RATE: tachycardic RHYTHM: regular rhythm HEART SOUNDS: S1 normal heart sound present and S2 normal heart sound present GI: COMMON NORMALS: Soft to palpation and non-tender AUSCULTATION: Yes Hypoactive bowel sounds present PALPATION: Yes Soft to palpation Extremity: COMMON NORMALS: no joint enlargement and no pedal edema Neuro: COMMON NORMALS: patient oriented x3 and moves all extremities Skin: COMMON NORMALS: no rashes or lesions noted GENERAL SKIN EXAM: no rashes or lesions noted Urinary Catheter Management^: Joseph: Cath Placed During This Visit: yes Reason for Continuing Indwelling Catheter: Accurate Measurement of Urinary Output in Critically Ill Patients Urinary Catheter Date of Insertion: 06/29/21 Urinary Catheter Time of Insertion: 09:00 Data : 07/03/21 03:50 07/03/21 03:50 Micro: Microbiology 07/02/21 12:05 Gram Stain - Final Lung Right Upper Lobe 07/02/21 08:33 Gram Stain - Final Sputum - Expectorated Sputum A&P Assessment and plan (1) Hypoxia: Underwent bronchoscopy yesterday for multifocal pneumonia with lung abscesses with additional BAL sample sent for microbiology. Few gram positive cocc in pairs and chains, few gram-negative rods on Gram stain. She is working well with I-S, flutter valve. Continue at this time empiric antibiotic coverage. We will repeat blood culture, request pacifically from the port. Overall slightly better, persistently requiring 70% FiO2. COVID-19 PCR negative. Continue to encourage use of I-S, flutter valve. So far has had no recurrence of vomiting. Continue bowel regimen. She is prone to opiate induced ileus. Follow up TTE. Status: Acute (2) Pneumonia: Status: Acute (3) Small bowel obstruction: Overall had improved, but is very prone to ileus. We will repeat Relistor today. Clear liquids as she is wanting to eat. Patient is very prone to opiate induced ileus. Continue standing bowel regimen. Status: Acute (4) Renal failure: Continues to improve. Creatinine normalized. Hold additional Lasix, avoid hypotension. History of right ureteral stent placement for obstruction secondary to recurrence of cancer. Status: Acute (5) Extrinsic ureteral obstruction: Status: Chronic (6) S/P ureteral stent placement: Status: Chronic (7) COPD (chronic obstructive pulmonary disease): Status: Acute (8) Ovarian cancer on right: Continue follow-up with Dr. Lynne. Status: Acute Additional A&P Information Hypernatremia: Sodium better to 147 after switching base fluid and her antibiotic infusions to D5W. Continue same. P.o. intake is tolerating. Attestations Medical Necessity Statement*: Continue admission for cyst management of hypoxic respiratory failure, pneumonia. 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
[2021-07-03] MEDS: budesonide 0.5 mg/2 mL Neb INHALATION ×2 (08:38→20:26)
[2021-07-03] MEDS: levothyroxine 100 mcg SDV 25 MCG IVP (08:47)
[2021-07-03] MEDS: FUROsemide 10 mg/mL SDV 4mL 40 MG IVP ×2 (08:47→23:23)
[2021-07-03] MEDS: pantoprazole 40 mg SDV IVP ×2 (08:47→23:23)
[2021-07-03] MEDS: heparin 5,000 unit/mL INJ 1 mL 5000 UNIT SUBCUT ×2 (08:47→23:23)
[2021-07-03] MEDS: folic acid 1 mg Tablet PO (08:48)
[2021-07-03] MEDS: cyanocobalamin 1,000 mcg Tablet 500 MCG PO (08:48)
[2021-07-03] MEDS: polyethylene glycol 3350 Pkt 17 gm PO ×2 (08:49→17:02)
[2021-07-03 12:03] LABS: Glucose Point of Care 243 mg/dL (70-110)
[2021-07-03 13:29] LABS: Vancomycin Trough 13.9 ug/mL (10-15)
[2021-07-03] MEDS: iron sucrose 200 MG in sodium chloride 0.9% (100 ml) 100 ML 220 MG IV (14:02)
[2021-07-03] MEDS: morphine 4 mg/mL SDV 1 mL 2 MG IVP (14:13)
--- NOTE | 2021-07-03 18:43 | PC.NURSE ---
Shift Note Frequent safety and comfort rounds continue. Orders and nursing care completed as indicated. Patient up to a chair for 6 hours today. Diet advanced to Cardiac diet, patient tolerated well. Patient monitored for response to intervention and treatments. Patient and family updated on plan of care and verbalized understanding. Will continue to monitor.
[2021-07-04] VITALS (19 sets, daily range): BP systolic 128–144; BP diastolic 74–86; PULSE 82–113; RESP 16–24; TEMP 36.7–37.1; O2SAT 85–98; BMI 19.9
[2021-07-04] MEDS: piperacillin-tazobactam 3.375 GM in dextrose 5% (plus) 50 ML IV (02:35)
[2021-07-04] MEDS: HYDROmorphone 1 mg/mL INJ 1 mL IVP ×2 (03:19→19:41)
[2021-07-04] MEDS: ipratropium-albuterol 3 mL Neb INHALATION ×5 (03:19→21:12)
[2021-07-04 05:43] LABS: Alanine Aminotransferase 19 U/L (0-33); Albumin Level 2.8 g/dL (3.5-5.2); Alkaline Phosphatase 67 IU/L (35-105); Aspartate Amino Transferase 18 U/L (0-32); Blood Urea Nitrogen 13 mg/dL (8-23); Calcium 8.8 mg/dL (8.5-10.5); Carbon Dioxide 39 mmol/L (22-29); Chloride 83 mmol/L (98-107); Globulin 3.3 g/dL (1.3-4.6); Glomerular Filtration Rate 161.2 mL/min (90-130); Glucose 117 mg/dL (65-115); Osmolality Calculated 279 mOsm/kg (285-295); Sodium 134 mmol/L (136-145); Total Bilirubin 1.4 mg/dL (0.15-1.2); Total Protein 6.1 g/dL (6.6-8.7)
[2021-07-04 05:48] LABS: Basophils % 0.2 %; Hematocrit 34.9 % (37.0-47.0); Hemoglobin 12.1 g/dL (11.5-15.3); Lymphocytes # 0.6 10^3/uL (0.8-4.8); Lymphocytes % 4.8 %; Mean Corpuscular HGB Conc 34.7 g/dL (30.0-36.0); Mean Corpuscular Hemoglobin 34.4 pg (28.0-34.0); Mean Corpuscular Volume 99.1 fl (81-99); Mean Platelet Volume 13.1 fL (7.4-10.4); Monocytes # 0.4 10^3/uL (0.2-0.9); Monocytes % 3.6 %; Neutrophils # 10.97 10^3/uL (1.8-7.7); Neutrophils % 89.9 %; Nucleated Red Blood Cells % 0 %; Platelet Count 67 10^3/cmm (130-400); Red Blood Count 3.52 10^6/uL (4.1-5.3); Red Cell Distribution Width 15.4 % (12.1-15.1); White Blood Count 12.2 10^3/uL (4.0-10.0)
[2021-07-04 05:51] LABS: Slide Review Slide Review Perform
--- NOTE | 2021-07-04 06:00 | XR_ITS ---
WS: [id number] XR chest 1V portable [id number] REASON FOR EXAM: covid FINDINGS: Chemotherapy infusion port and right subclavian vein catheter remain in position. Infiltrates and ate lectasis in both lower lobes. Bilateral pulmonary infiltrates. There is increased platelike atelectasis in the right lower lung. Th e chest is otherwise unchanged compared to 07/02/2021. XR/XR chest 1V portable [id number] IMPRESSION: Increased atelectasis in the right lower lobe. Abnormal chest otherwise relativ lizbeth stable.
[2021-07-04] MEDS: lidocaine 1% 5 ML in potassium chloride premix 100 ML 25 ML IV ×2 (06:26→11:49)
--- NOTE | 2021-07-04 07:36 | PC.RESP ---
SMOKING CESSATION AND PULMONARY REHAB INFORMATION SENT TO PATIENT.
[2021-07-04] MEDS: budesonide 0.5 mg/2 mL Neb INHALATION ×2 (07:40→20:30)
[2021-07-04] MEDS: cyanocobalamin 1,000 mcg Tablet 500 MCG PO (08:24)
[2021-07-04] MEDS: polyethylene glycol 3350 Pkt 17 gm PO ×2 (08:25→18:39)
[2021-07-04] MEDS: heparin 5,000 unit/mL INJ 1 mL 5000 UNIT SUBCUT ×2 (08:25→21:07)
[2021-07-04] MEDS: folic acid 1 mg Tablet PO (08:25)
[2021-07-04] MEDS: ondansetron 2 mg/ML SDV 2 mL 4 MG IVP ×2 (08:40→14:17)
[2021-07-04] MEDS: pantoprazole 40 mg SDV IVP ×2 (08:42→21:19)
[2021-07-04] MEDS: levothyroxine 100 mcg SDV 25 MCG IVP (08:42)
--- NOTE | 2021-07-04 08:46 | P.PN_ITS ---
Subjective Subjective: Interval history: She is nauseated this morning. Has not vomited. Has had 2 bowel movements. Denies headache, dizziness, double vision or other vision abnormalities. Vitals/I&O/Wt Last Vital Signs Temp 98.8 F 07/04/21 07:51 Pulse 104 H 07/04/21 07:51 Resp 18 07/04/21 07:51 BP 144/75 07/04/21 07:51 Pulse Ox 94 07/04/21 07:51 07/03/21 07/04/21 07/04/21 22:59 06:59 14:59 Intake Total 300 / 2030 780.000 / 2810.000 Output Total 450 / 2450 2100 / 4550 Balance -150 / -420 -1320.000 / -1740.000 Weight last 48 hrs Weight 57.635 kg Weight 55.248 kg Physical Exam Const: COMMON NORMALS: no acute distress and patient oriented x3 OTHER: HHF HENMT: COMMON NORMALS: oropharynx normal Neck/C-Spine: COMMON NORMALS: no JVD Resp: COMMON NORMALS: normal respiratory effort AUSCULTATION: crackles Cardio: COMMON NORMALS: no JVD, regular rhythm, S1 normal heart sound present, S2 normal heart sound present and No murmurs present (Cardio) RATE: tachycardic RHYTHM: regular rhythm HEART SOUNDS: S1 normal heart sound present and S2 normal heart sound present GI: COMMON NORMALS: Soft to palpation and non-tender AUSCULTATION: Yes Hypoactive bowel sounds present PALPATION: Yes Soft to palpation Extremity: COMMON NORMALS: no joint enlargement and no pedal edema Neuro: COMMON NORMALS: patient oriented x3 and moves all extremities Skin: COMMON NORMALS: no rashes or lesions noted GENERAL SKIN EXAM: no rashes or lesions noted Urinary Catheter Management^: Joseph: Cath Placed During This Visit: yes Reason for Continuing Indwelling Catheter: Other Urinary Catheter Date of Insertion: 06/29/21 Urinary Catheter Time of Insertion: 09:00 Data : 07/04/21 04:30 07/04/21 04:30 Micro: Microbiology 07/02/21 08:33 Gram Stain - Final Sputum - Expectorated Sputum Sputum Culture - Final Escherichia coli 07/03/21 08:55 Blood Culture - Preliminary Blood 07/03/21 08:57 Blood Culture - Preliminary Blood A&P Assessment and plan (1) Hypoxia: Sputum culture is growing pansensitive E. coli. She still hypoxic, although overall oxygenation has shown gradual improvement. Noted worsening right lower lobe opacity on chest x-ray. Again suspect related to aspiration pneumonia. Continue Zosyn. Continue empiric coverage for now with vancomycin, azithromycin. I-S, flutter valve. Follow-up blood culture from the port. COVID-19 PCR negative. Nausea this morning. Antiemetics. Will downgrade diet back to liquid. If continues to be nauseated, and moving bowels, consider ARCHIVAL RECORDS CLERK imaging. Continue bowel regimen. She is prone to opiate induced ileus. TTE difficult study with EF 55-60%. Mild AVR. Status: Acute (2) Pneumonia: Status: Acute (3) Small bowel obstruction: Overall had improved, but is very prone to ileus. We will repeat Relistor today. Clear liquids as she is wanting to eat. Patient is very prone to opiate induced ileus. Continue standing bowel regimen. Status: Acute (4) Renal failure: Continues to improve. Creatinine normalized. Hold additional Lasix, avoid hypotension. History of right ureteral stent placement for obstruction secondary to recurrence of cancer. Status: Acute (5) Extrinsic ureteral obstruction: Status: Chronic (6) S/P ureteral stent placement: Status: Chronic (7) COPD (chronic obstructive pulmonary disease): Status: Acute (8) Ovarian cancer on right: Continue follow-up with Dr. Lynne. Status: Acute Additional A&P Information Hypernatremia: Sodium 134. Switch infusions back to NS base. Discussed with pharmacy. Continue same. For now downgraded diet to full liquid. Attestations Medical Necessity Statement*: Continue admission for assessment management of hypoxic respiratory failure, weaning of high oxygen support. Coding Level of Care Code Acute Auto Damage Trainee for [facility] Fwd Diagnoses Hypoxia R09.02 Pneumonia J18.9 Small bowel obstruction K56.609 Renal failure N19 Extrinsic ureteral obstruction N13.5 S/P ureteral stent placement Z96.0 COPD (chronic obstructive pulmonary disease) J44.9 Ovarian cancer on right C56.1
[2021-07-04] MEDS: azithromycin 500 MG in sodium chloride 0.9% 250 ML 250 MG IV (10:50)
[2021-07-04] MEDS: promethazine 25 mg/mL SDV 1 mL 12.5 MG IM (11:06)
--- NOTE | 2021-07-04 11:37 | PC.SOCIAL ---
IMM Update Pg. 2of IMM updated and reviewed with patient, who verbalized understanding. Copy provided.
[2021-07-04] MEDS: piperacillin-tazobactam 3.375 GM in sodium chloride 0.9% (plus) 50 ML IV ×2 (11:44→19:53)
--- NOTE | 2021-07-04 12:09 | CT_ITS ---
WS: [id number] CT abdomen pelvis w con* [id number] REASON FOR EXAM: N/V, L side abdo pain IV CONTRAST ADMINISTERED: 95 mL of Omnipaque 350 TOTAL EXAM DLP: 740.[address] scans at [facility] use at least one of these dose optimization techniques: automat ed exposure control; mA and/or kV adjustment per patient size (includes targeted exams where dose is matched to clinical indication); or iterative reconstruction. FINDINGS: ABDOMEN: No focal liver or splenic abnormality. Large right kidney. Atrophic left kidney with ureteral stent. Multiple dilated loops of small bowel. There is a transition point in the right lower quadrant center ed upon a 3.3 x 3.5 cm mass immediately to and encasing the right ureteral stent and iliac artery. Th is mass was noted on the examination of 11/07/2020. It has increased in size from approximately 2 cm i n diameter. PELVIS: The dilated loops of bowel compressing displaced urinary bladder into the right pelvis where the term inal portion of the right ureteral stent is noted. The current examination demonstrates no significant interval change compared to the previous study. CT/CT abdomen pelvis w con* [id number] IMPRESSION: Small bowel obstruction which appears to be secondary to recurrent tumor in the right lower quadrant as above.
[2021-07-04] MEDS: morphine 4 mg/mL SDV 1 mL IVP (12:15)
--- NOTE | 2021-07-04 12:19 | PC.NURSE ---
this nurse went to give 2mg ivp morphine for Leah Henry [employer]IC[employer], the order was changed after it had been wasted in the pyxis, this nurse administered 4mg per new order.
[2021-07-04] MEDS: iohexol 300 mg/mL 100 mL Btl IV (12:52)
[2021-07-04 13:41] LABS: Anion Gap 7.9 (5-19); Blood Urea Nitrogen 14 mg/dL (8-23); Calcium 8.5 mg/dL (8.5-10.5); Chloride 88 mmol/L (98-107); Glomerular Filtration Rate 124.6 mL/min (90-130); Glucose 114 mg/dL (65-115); Osmolality Calculated 279 mOsm/kg (285-295); Sodium 134 mmol/L (136-145)
[2021-07-04 13:45] LABS: Carbon Dioxide 41 mmol/L (22-29); Potassium 2.9 mmol/L (3.5-5.1)
--- NOTE | 2021-07-04 14:03 | PC.NURSE ---
Pulled morphine and wasted 2mg in pyxis with CAMILLE conley. When EFFIE Teran was giving order was changed to 4mg. The whole 4mg was given.
[2021-07-04] MEDS: vancomycin 750 MG in sodium chloride 0.9% 250 ML 250 MG IV (16:34)
--- NOTE | 2021-07-04 22:21 | PC.NURSE ---
O2 SATS O2 sat was running 87% while sleeping. Up to 90% with deep breaths and cough. RT was called and placed pt on her BIPAP. Sat now is running 92-93%
[2021-07-05] VITALS (29 sets, daily range): BP systolic 148–162; BP diastolic 30–88; PULSE 68–106; RESP 16–28; TEMP 36.7–37.1; O2SAT 92–100
--- NOTE | 2021-07-05 | PC.RESP ---
2200- Patients Spo2 in the 80's while on heated high flow 40L at 55%. Placed patient on bipap setting 09/24 rate 10, 55%- contacted Dr Chacon for approval. Patient is tolerating well- Spo2 93%- we will continue to monitor
[2021-07-05] MEDS: ipratropium-albuterol 3 mL Neb INHALATION ×6 (00:19→23:59)
--- NOTE | 2021-07-05 02:00 | PC.NURSE ---
O2 Pt has been back on heated high flow since 99. Resting quietly with sat staying 92-93%
[2021-07-05] MEDS: piperacillin-tazobactam 3.375 GM in sodium chloride 0.9% (plus) 50 ML IV ×3 (03:02→20:25)
[2021-07-05] MEDS: HYDROmorphone 1 mg/mL INJ 1 mL IVP ×4 (03:12→21:34)
[2021-07-05] MEDS: vancomycin 750 MG in sodium chloride 0.9% 250 ML 250 MG IV ×2 (03:31→17:10)
--- NOTE | 2021-07-05 05:31 | PC.NURSE ---
SHIFT SUMMARY Rested for intervals. Received IV Dilaudid X2 for c/o abd pain this shift. Remains NPO except for ice chips & sips. Continues on high flow O2 after on BIPAP few hours first part of night.To [facility] this morning and had a liquid BM. Wanted to sit in chair after this. Becomes very easily SOB and tires with any exertion. Receiving IV antibiotics.
[2021-07-05 05:44] LABS: Basophils # 0.1 10^3/uL (0.0-0.1); Basophils % 0.6 %; Eosinophils % 0.1 %; Hematocrit 36.2 % (37.0-47.0); Hemoglobin 12.2 g/dL (11.5-15.3); Lymphocytes % 6.9 %; Mean Corpuscular HGB Conc 33.7 g/dL (30.0-36.0); Mean Corpuscular Volume 100.8 fl (81-99); Mean Platelet Volume 12.8 fL (7.4-10.4); Monocytes # 0.5 10^3/uL (0.2-0.9); Monocytes % 3.4 %; Neutrophils % 87.7 %; Nucleated Red Blood Cells % 0 %; Platelet Count 84 10^3/cmm (130-400); Red Blood Count 3.59 10^6/uL (4.1-5.3); Red Cell Distribution Width 15.5 % (12.1-15.1); White Blood Count 13.7 10^3/uL (4.0-10.0)
[2021-07-05 06:05] LABS: Alanine Aminotransferase 19 U/L (0-33); Albumin Level 2.9 g/dL (3.5-5.2); Alkaline Phosphatase 71 IU/L (35-105); Anion Gap 10.1 (5-19); Aspartate Amino Transferase 18 U/L (0-32); Blood Urea Nitrogen 15 mg/dL (8-23); Carbon Dioxide 35 mmol/L (22-29); Chloride 92 mmol/L (98-107); Globulin 2.9 g/dL (1.3-4.6); Glomerular Filtration Rate 161.2 mL/min (90-130); Glucose 91 mg/dL (65-115); Osmolality Calculated 278 mOsm/kg (285-295); Potassium 3.1 mmol/L (3.5-5.1); Sodium 134 mmol/L (136-145); Total Bilirubin 0.8 mg/dL (0.15-1.2); Total Protein 5.8 g/dL (6.6-8.7)
[2021-07-05] MEDS: morphine 4 mg/mL SDV 1 mL IVP ×4 (06:24→23:58)
[2021-07-05] MEDS: azithromycin 500 MG in sodium chloride 0.9% 250 ML 250 MG IV (08:16)
[2021-07-05] MEDS: heparin 5,000 unit/mL INJ 1 mL 5000 UNIT SUBCUT ×2 (08:17→20:25)
[2021-07-05] MEDS: polyethylene glycol 3350 Pkt 17 gm PO ×2 (08:17→17:15)
[2021-07-05] MEDS: cyanocobalamin 1,000 mcg Tablet 500 MCG PO (08:17)
[2021-07-05] MEDS: pantoprazole 40 mg SDV IVP ×2 (08:17→21:34)
[2021-07-05] MEDS: budesonide 0.5 mg/2 mL Neb INHALATION ×2 (08:45→20:36)
[2021-07-05] MEDS: lidocaine 1% 5 ML in potassium chloride premix 100 ML 50 ML IV (09:37)
[2021-07-05] MEDS: FUROsemide 10 mg/mL SDV 4mL 40 MG IVP ×2 (09:37→21:34)
[2021-07-05] MEDS: levothyroxine 100 mcg SDV 25 MCG IVP (10:13)
--- NOTE | 2021-07-05 12:20 | P.PN_ITS ---
Subjective Subjective: Interval history: Yesterday per our discussion in the afternoon with her and her regarding findings on the CT scan and discussion with surgery due to noted obstruction with transition point in right lower abdomen, with noted increase in the size of the mass, which is also involving right ureter and right iliac artery, they have been considering whether she would be wanting to pursue additional palliative surgical intervention to relieve the obstruction which would require presence also of urologist, possibly vascular surgeon. As per discussion with surgery such a procedure would be above level of care that can be provided at this facility. She is hesitant whether she would want to pursue further surgery, however, this was not necessarily the final decision at that time and she and her were going to take some time to see if they would want us to pursue transfer to a facility able to accommodate further treatment. This morning she is so far not had further vomiting. Had a bowel movement. Has not so far further decided regarding pursuing further surgical treatment regarding the obstruction. Discussed with her also regarding updated inform ation we are getting with regards to cultures growing gram-positive cocci as well as yeast from the port culture obtained on 07/03. We discussed concern regarding infection of the port as had previously been discussed with concern for possible septic embolization to the lungs. Discussed consideration that the port should come out which again would require surgery. This again may be complicated by the level of her hypoxia which may make extubation following the procedure difficult or delayed for duration. She is currently wanting to discuss all the developments further with her and give everything further thought. She is agreeable to initiation of antifungal medication as discussed with her regarding caspofungin. Vitals/I&O/Wt Last Vital Signs Temp 98.7 F 07/05/21 11:36 Pulse 80 07/05/21 11:49 Resp 18 07/05/21 11:49 BP 148/81 07/05/21 11:36 Pulse Ox 100 07/05/21 11:49 07/04/21 07/05/21 07/05/21 22:59 06:59 14:59 Intake Total 755 / 1110 550 / 1660 300 / 300 Output Total 900 / 900 500 / 1400 Balance -145 / 210 50 / 260 300 / 300 Weight last 48 hrs Weight 58.241 kg Weight 57.635 kg Physical Exam Const: COMMON NORMALS: no acute distress, patient oriented x3 and alert GENERAL APPEARANCE: anxious (tearful) ORIENTATION/CONSCIOUSNESS: Yes awake OTHER: HHF HENMT: COMMON NORMALS: oropharynx normal Neck/C-Spine: COMMON NORMALS: no JVD Chest: CHEST: Yes Vascular access present (no surrounding erythema) Resp: COMMON NORMALS: normal respiratory effort AUSCULTATION: rhonchi and wheezes Cardio: COMMON NORMALS: no JVD, regular rhythm, S1 normal heart sound present, S2 normal heart sound present and No murmurs present (Cardio) RATE: tachyc ardic RHYTHM: regular rhythm HEART SOUNDS: S1 normal heart sound present and S2 normal heart sound present GI: COMMON NORMALS: Soft to palpation and non-tender AUSCULTATION: Yes Hypoactive bowel sounds present PALPATION: Yes Soft to palpation Extremity: COMMON NORMALS: no joint enlargement and no pedal edema Neuro: COMMON NORMALS: patient oriented x3 and moves all extremities SENSORIUM/ORIENTATION: Yes alert Skin: COMMON NORMALS: no rashes or lesions noted GENERAL SKIN EXAM: no rashes or lesions noted Urinary Catheter Management^: Joseph: Cath Placed During This Visit: yes Reason for Continuing Indwelling Catheter: Accurate Measurement of Urinary Output in Critically Ill Patients Urinary Catheter Date of Insertion: 06/29/21 Urinary Catheter Time of Insertion: 09:00 Data : 07/05/21 05:24 07/05/21 05:24 Micro: Microbiology 07/03/21 08:57 Blood Culture - Preliminary Blood Viridans streptococcus group Yeast 07/03/21 08:55 Blood Culture - Preliminary Blood Viridans streptococcus group Yeast 06/29/21 09:58 Blood Culture - Final Blood NO GROWTH AFTER 5 DAYS 06/29/21 10:02 Blood Culture - Final Blood NO GROWTH AFTER 5 DAYS 07/02/21 12:05 Gram Stain - Final Lung Right Upper Lobe Bronchoalveolar Lavage Culture - Final Escherichia coli 07/02/21 08:33 Gram Stain - Final Sputum - Expectorated Sputum Sputum Culture - Final Escherichia coli A&P Assessment and plan (1) Bacteremia: Bacteremia and fungemia. On 07/05 notified of positive culture from port obtained on 07/03. Initial blood culture-negative blood was obtained only from periphery. Growing Strep viridans and yeast. Continue vancomycin. Stop azithromycin. Add caspofungin. Repeat culture requested for Wednesday morning. Will need every other day cultures to document clearing of fungemia to determine length of antifungal therapy. As well as to help determine length of antibiotic therapy. Discussed with her port would need to be removed, although surgery certainly may be complicated given level of hypoxia, as well as possibly with difficulties with extubation afterward. She would like to further give things a thought and discuss with her . Will inquire about opthalmology eye exam. Does not have obvious signs of septic emblization. TTE without obvious vegetation or perivalvular abscess. SMOOTH may need to be consideration, however, currently difficult due to the degree of hypoxia. Status: Acute (2) Small bowel obstruction: Again severe nausea, abdominal discomfort on the. Discussed with her oncologist. Discussed with her and her , repeated CT abdomen pelvis. Results in the afternoon discussed with her and her regarding findings on the CT scan and subsequent discussion with surgery due to noted obstruction with transition point in right lower abdomen, with noted increase in the size of the mass, which is also involving right ureter and right iliac artery, for consideration of palliative adhesiolysis, possibly mass resection as per recommendation of her oncologist. She had needed similar procedure in the past. Such palliative surgical intervention to relieve the obstruction due to complicated local involvement would require presence also of urologist, possibly vascular surgeon. As per discussion with surgery such a procedure would be above level of care that can be provided at this facility. Offered them to arrange transfer to outside/higher level care hospital. Her prior surgery was with Dr. Rivera at [facility] in [place]. She is hesitant whether she would want to pursue further surgery. However, this was not necessarily the final decision and she and her still want to take some time to see if they would want us to pursue it and proceed with request for transfer to a facility able to accommodate further treatment. So far no vomiting. We had discussed that she may get transient relief with NGT placement, however, she has declined NGT. Currently on bowel rest, sips and ice chips. In case continue to improve we discussed could trial some liquid diet, although in the long-term would anticipate bowel obstruction to continue to get worse, possibly leading to her demise if untreated due to either obstruction, or other complications like vomiting, aspiration, worsening hypoxia with pneumonitis and/or pneumonia. They understand this. Very prone to opioid induced ileus. Relistor. Continue standing bowel regimen. Status: Acute (3) Hypoxia: Hypoxia likely multifactorial, secondary to complicated pneumonia, lung abscesses. Growing E. coli from respiratory cultures, BAL. Possible septic embolization secondary to port infection as above. Possible also aspiration pneumonitis, pneumonia following small bowel obstruction, vomiting episodes week prior to admission. Continue Zosyn. Continue vancomycin. Caspofungin added. I-S, flutter valve. COVID-19 PCR negative. TTE difficult study with EF 55-60%. Mild AVR. Status: Acute (4) Pneumonia: Status: Acute (5) Renal failure: Resolved. Hold additional Lasix, avoid hypotension. History of right ureteral stent placement for obstruction secondary to recurrence of cancer. Status: Acute (6) Extrinsic ureteral obstruction: Status: Chronic (7) S/P ureteral stent placement: Status: Chronic (8) COPD (chronic obstructive pulmonary disease): Status: Acute (9) Ovarian cancer on right: Continue follow-up with Dr. Lynne. Progression noted on CT scan. Discussed also with her oncologist, as well as with her and her . Given progression with the current medication despite increased dose, as well as the risk associated for respiratory infection with Lynparza, likely will not continue on this medication. They understand there will be a difficult discussion with oncologist with regards to what further treatment options might still be available. Status: Acute Additional A&P Information Hypernatremia: Sodium 134. Switched infusions back to NS base. Continue same. Currently NPO for bowel rest. Attestations Medical Necessity Statement*: Continue admission for assessment and management of bacteremia, fungemia, hypoxia, pneumonia, pulmonary abscesses, bowel obstruction with progression of ovarian cancer, intra-abdominal adhesions. Coding Level of Care Code Acute Director Of Institutional Giving for [facility] Fwd Diagnoses Bacteremia R78.81 Small bowel obstruction K56.609 Hypoxia R09.02 Pneumonia J18.9 Renal failure N19 Extrinsic ureteral obstruction N13.5 S/P ureteral stent placement Z96.0 COPD (chronic obstructive pulmonary disease) J44.9 Ovarian cancer on right C56.1
[2021-07-05] MEDS: fentaNYL 100 mcg Patch 2 PATCH TRANSDERMA (14:32)
[2021-07-06] VITALS (23 sets, daily range): BP systolic 129–161; BP diastolic 77–88; PULSE 78–107; RESP 16–22; TEMP 36.5–37.1; O2SAT 93–100
[2021-07-06] MEDS: HYDROmorphone 1 mg/mL INJ 1 mL IVP ×4 (01:53→20:57)
[2021-07-06] MEDS: trazodone 150 mg Tablet PO ×2 (02:10→21:02)
[2021-07-06] MEDS: ipratropium-albuterol 3 mL Neb INHALATION ×5 (03:01→21:05)
[2021-07-06 03:11] LABS: Basophils % 0.5 %; Eosinophils % 0.2 %; Hematocrit 40.7 % (37.0-47.0); Hemoglobin 13.9 g/dL (11.5-15.3); Lymphocytes # 0.7 10^3/uL (0.8-4.8); Lymphocytes % 8.6 %; Mean Corpuscular HGB Conc 34.2 g/dL (30.0-36.0); Mean Corpuscular Hemoglobin 34.4 pg (28.0-34.0); Mean Corpuscular Volume 100.7 fl (81-99); Mean Platelet Volume 12.3 fL (7.4-10.4); Monocytes # 0.3 10^3/uL (0.2-0.9); Monocytes % 3.8 %; Neutrophils # 7.03 10^3/uL (1.8-7.7); Neutrophils % 85.1 %; Nucleated Red Blood Cells % 0 %; Platelet Count 90 10^3/cmm (130-400); Red Blood Count 4.04 10^6/uL (4.1-5.3); Red Cell Distribution Width 15.5 % (12.1-15.1); White Blood Count 8.3 10^3/uL (4.0-10.0)
[2021-07-06 03:43] LABS: Alanine Aminotransferase 29 U/L (0-33); Albumin Level 3.5 g/dL (3.5-5.2); Alkaline Phosphatase 73 IU/L (35-105); Anion Gap 13.5 (5-19); Aspartate Amino Transferase 26 U/L (0-32); Blood Urea Nitrogen 17 mg/dL (8-23); Calcium 9.5 mg/dL (8.5-10.5); Carbon Dioxide 38 mmol/L (22-29); Chloride 86 mmol/L (98-107); Globulin 3.6 g/dL (1.3-4.6); Glucose 88 mg/dL (65-115); Osmolality Calculated 281 mOsm/kg (285-295); Sodium 135 mmol/L (136-145); Total Bilirubin 1.1 mg/dL (0.15-1.2); Total Protein 7.1 g/dL (6.6-8.7)
[2021-07-06 03:44] LABS: Vancomycin Trough 12.4 ug/mL (10-15)
[2021-07-06 03:46] LABS: Potassium 2.5 mmol/L (3.5-5.1)
[2021-07-06] MEDS: potassium chloride premix 100 ML 25 MEQ IV ×2 (04:16→08:21)
[2021-07-06] MEDS: lidocaine 1% INJ 20 mL 5 ML IV (04:55)
[2021-07-06] MEDS: budesonide 0.5 mg/2 mL Neb INHALATION ×2 (08:05→21:05)
[2021-07-06] MEDS: levothyroxine 100 mcg SDV 25 MCG IVP (08:21)
[2021-07-06] MEDS: folic acid 1 mg Tablet PO (08:22)
[2021-07-06] MEDS: cyanocobalamin 1,000 mcg Tablet 500 MCG PO (08:22)
[2021-07-06] MEDS: heparin 5,000 unit/mL INJ 1 mL 5000 UNIT SUBCUT (08:22)
[2021-07-06] MEDS: polyethylene glycol 3350 Pkt 17 gm PO ×2 (08:22→17:17)
[2021-07-06] MEDS: pantoprazole 40 mg SDV IVP ×2 (09:27→21:05)
[2021-07-06] MEDS: morphine 4 mg/mL SDV 1 mL IVP ×2 (09:29→17:09)
[2021-07-06 09:53] LABS: Magnesium 1.4 mg/dL (1.7-2.3)
[2021-07-06] MEDS: linezolid premix 600 MG/300 ML PREMIX 300 MG IV ×2 (10:34→21:00)
--- NOTE | 2021-07-06 10:53 | PC.SOCIAL ---
IMM Update Pg. 2of IMM updated and reviewed with patient, who verbalized understanding. Copy provided.
[2021-07-06] MEDS: magnesium sulfate premix 2 GM/50 ML PIGGYBACK IV (12:57)
[2021-07-06] MEDS: piperacillin-tazobactam 3.375 GM in sodium chloride 0.9% (plus) 50 ML IV ×2 (13:51→22:02)
--- NOTE | 2021-07-06 15:45 | P.PN_ITS ---
Subjective Subjective: Interval history: No vomiting. Nausea is better. She is wanting to try some clear liquids today. States will go slow. No abdominal pain. Denies headache, dizziness, vision changes. We have had several conversations through the day, including with her in the morning and with her and her again in the afternoon. Have reached out to [facility], as well as [facility] as per their wishes, but no beds available currently. We discussed, however, also noted yeast as well as MDRO VRE Enterococcus growing from the blood culture from the port from 07/03. Also with concern of septic embolic contribution to pulmonary infection. Discussed regarding removal of the port. We discussed various options including attempting continued transfer efforts to outside facility, as opposed to removing the port here, other options including leaving the port in. They have been wanting to pursue surgical intervention, and so hospice/comfort care alone at this time is not yet a consideration. We discussed that with recurrent bowel obstructions, poor oral intake, she is at risk of continued malnutrition, dehydration, as well as other complications including severe bowel obstruction, volvulus, but also additional episodes of aspiration, pneumonia with vomiting. However, given she is doing better, has not vomited since being in the hospital, is tolerating small amounts of clear liquids this morning, the for now would like to focus on what we can accomplish here with regards to removal of the port, and subsequently consider seeking additional assessment with Dr. Rivera with regards to the recurrent episodes of bowel obstruction. We discussed also the increased risk with surgical intervention due to her acute illness, including hypoxia. Discussed also risk that in case generalized seizure and intubation is required there may be risk of difficulty with extubation after the procedure. Discussing with surgery consultation may be an option if she would be agreeable/can tolerate. Vitals/I&O/Wt Last Vital Signs Temp 97.7 F 07/06/21 15:38 Pulse 93 07/06/21 15:38 Resp 18 07/06/21 15:38 BP 161/88 07/06/21 15:38 Pulse Ox 99 07/06/21 15:38 07/06/21 07/06/21 07/06/21 06:59 14:59 22:59 Intake Total 50 / 1005 800 / 800 700 / 1500 Output Total 2200 / 4200 Balance -2150 / -3195 800 / 800 700 / 1500 Weight last 48 hrs Weight 55.429 kg Weight 58.241 kg Physical Exam Const: COMMON NORMALS: no acute distress, patient oriented x3 and alert GENERAL APPEARANCE: comfortable ORIENTATION/CONSCIOUSNESS: Yes awake OTHER: HHF HENMT: COMMON NORMALS: oropharynx normal Neck/C-Spine: COMMON NORMALS: no JVD Chest: CHEST: Yes Vascular access present (Port deaccessed) Resp: COMMON NORMALS: normal respiratory effort AUSCULTATION: rhonchi right lower and wheezes right lower Cardio: COMMON NORMALS: no JVD, regular rhythm, S1 normal heart sound present, S2 normal heart sound present and No murmurs present (Cardio) RATE: tachycardic RHYTHM: regular rhythm HEART SOUNDS: S1 normal heart sound present and S2 normal heart sound present GI: COMMON NORMALS: Soft to palpation and non-tender AUSCULTATION: Yes Hypoactive bowel sounds present PALPATION: Yes Soft to palpation Extremity: COMMON NORMALS: no joint enlargement and no pedal edema Neuro: COMMON NORMALS: patient oriented x3 and moves all extremities SENSORIUM/ORIENTATION: Yes alert Skin: COMMON NORMALS: no rashes or lesions noted GENERAL SKIN EXAM: no rashes or lesions noted Urinary Catheter Management^: Joseph: Cath Placed During This Visit: yes Reason for Continuing Indwelling Catheter: Acute Urinary Retention or Obstruction Urinary Catheter Date of Insertion: 06/29/21 Urinary Catheter Time of Insertion: 09:00 Data : 07/06/21 03:02 07/06/21 03:02 Micro: Microbiology 07/02/21 12:05 Mycobacterial Smear - Preliminary Sputum - Endotracheal Wash 07/03/21 08:57 Blood Culture - Preliminary Blood Enterococcus faecium vre Yeast 07/03/21 08:55 Blood Culture - Preliminary Blood Enterococcus faecium vre Yeast A&P Assessment and plan (1) Bacteremia: Discussed with her and her , identification of organism from 07/03 port culture is MDRO VRE Enterococcus in addition to yeast. With concern that at least partially lung infection may be secondary to septic embolic events. Due to these factors port should come out. As per the above discussion, appreciate surgery consultation and further discussion with her regarding options. This may be performed under local anesthesia should she be amenable to this option. Discussed with her subsequently would require additional antifungal therapy of at least 14 days, as well as may require 6 weeks of IV antibiotics due to suspected lung metastatic infection. N.p.o. after midnight. Port-A-Cath tip for culture. Due to MDRO VRE Enterococcus stop vancomycin, start linezolid. Discussed with her risks of linezolid interaction with fentanyl. Monitor closely. Continue caspofungin. Repeat culture requested for the morning. Will need every other day cultures to document clearing of fungemia to determine length of antifungal therapy. If bacterial cultures positive, consider SMOOTH, although this would be risky given hypoxia and risk may outweigh the benefit given septic embolization to lungs is suspected. No clear perivalvular abscess or significant new valve dysfunction noted on TTE. Could not get in touch with opthalmology regarding eye exam. Please inquire again on Wednesday. Subjectively no symptoms. Status: Acute (2) Small bowel obstruction: As per discussion above, no beds at [facility]. Given she has shown some improvement, abdominal discomfort resolved, no nausea, not vomiting. Tolerating small amounts of clear liquids this morning, they would like to hold off for now on seeking surgical intervention on the recurrent bowel obstruction and favor first addressing the above infections. Subsequently may again seek evaluation with Dr. Rivera depending on her condition on inpatient or outpatient basis for consideration of debulking, adhesiolysis given recurrent episodes of bowel obstruction, vomiting preadmission resulting in likely contribution to hypoxia from aspiration pneumonitis, pneumonia. Risk of malnutrition, dehydration going forward. Complicated also by recurrent opioid induced ileus. CT abdomen pelvis noted, discussed with patient and . Due to involvement of ureter, iliac artery debulking and adhesiolysis not possible currently at this facility as per discussion with surgery over the weekend. So far no vomiting. We had discussed that she may get transient relief with NGT placement, however, she has declined NGT. Currently on bowel rest, sips and ice chips. In case continue to improve we discussed could trial some liquid diet, although in the long-term would anticipate bowel obstruction to continue to get worse, possibly leading to her demise if untreated due to either obstruction, or other complications like vomiting, aspiration, worsening hypoxia with pneumonitis and/or pneumonia. They understand this. Very prone to opioid induced ileus. Relistor. Continue standing bowel regimen. Status: Acute (3) Hypoxia: Hypoxia likely multifactorial, secondary to complicated pneumonia, lung abscesses. Growing E. coli from respiratory cultures, BAL. Possible septic embolization secondary to port infection as above. Possible also aspiration pneumonitis, pneumonia following small bowel obstruction, vomiting episodes week prior to admission. Continue Zosyn. Added linezolid. Caspofungin. I-S, flutter valve. COVID-19 PCR negative. TTE difficult study with EF 55-60%. Mild AVR. Status: Acute (4) Pneumonia: Status: Acute (5) Renal failure: Resolved. Hold additional Lasix, avoid hypotension. History of right ureteral stent placement for obstruction secondary to recurrence of cancer. Status: Acute (6) Extrinsic ureteral obstruction: Status: Chronic (7) S/P ureteral stent placement: Status: Chronic (8) COPD (chronic obstructive pulmonary disease): Status: Acute (9) Ovarian cancer on right: Continue follow-up with Dr. Lynne. Progression noted on CT scan. Di scussed also with her oncologist, as well as with her and her . Given progression with the current medication despite increased dose, as well as the risk associated for respiratory infection with Lynparza, likely will not continue on this medication. They understand there will be a difficult discussion with oncologist with regards to what further treatment options might still be available. Status: Acute Additional A&P Information Hypernatremia: Sodium 135. Trial of CLD. Hypokalemia: Replaced. Replace hypomagnesemia. Recheck potassium Hypomagnesemia: Replace Attestations Medical Necessity Statement*: Continue admission for cyst management of Port-A-Cath infection, Port-A-Cath removal, treatment of bacteremia, pulmonary infection, hypoxic respiratory failure with aspiration pneumonia, pneumonitis, l catie abscesses, possible septic embolization secondary to port infection. Coding Level of Care Code Acute Automation Controls Expert for [facility] Fwd Diagnoses Bacteremia R78.81 Small bowel obstruction K56.609 Hypoxia R09.02 Pneumonia J18.9 Renal failure N19 Extrinsic ureteral obstruction N13.5 S/P ureteral stent placement Z96.0 COPD (chronic obstructive pulmonary disease) J44.9 Ovarian cancer on right C56.1
[2021-07-06 15:47] LABS: Potassium 3.3 mmol/L (3.5-5.1)
--- NOTE | 2021-07-06 15:52 | PM.CONSULT ---
Providers/Reason For Consult Consulting Physician/Specialty*: General Surgery Dr. Roland Reason for Consult*: Bacteremia requiring Port-A-Cath removal Attending Physician: Kailash Davis Primary Care Provider: Ravi Lynne MD History of Present Illness History of Present Illness Nisreen Carrasco is a 61 year old female who was diagnosed with ovarian cancer in 2002 and subsequently underwent hysterectomy, BSO in [place]. Patient is currently on oral chemotherapy for recurrent ovarian cancer. Patient is noted to have possible recurrence involving the right iliac artery and ureter which has been stented. Patient was admitted for respiratory issues as well as nausea. She was noted to have a bowel obstruction at the site of this mass which is likely cause of her bowel obstruction. She had blood cultures drawn from port which was positive for VRE Review of Systems General: Reports: 10 or more systems reviewed and unremarkable except in HPI and below Meds/Allergies Home Medications and Allergies Home Medications Medication Instructions Recorded Confirmed Last Taken Type albuterol sulfate 90 mcg/actuation 2 inh INHALATION Q6H PRN 11/29/19 06/29/21 06/28/21 14:00 History breath activated powder inhaler biotin 1,000 mcg chewable tablet 1,000 mcg PO DAILY 11/29/19 06/29/21 09/04/20 History carisoprodol 350 mg tablet 350 mg PO TID 11/29/19 06/29/21 06/28/21 21:00 History enalapril maleate 10 mg tablet 10 mg PO BID 11/29/19 06/29/21 06/28/21 21:00 History esomeprazole magnesium 40 mg 40 mg PO BID cap 11/29/19 06/29/21 06/28/21 21:00 History capsule,delayed release guaifenesin 600 mg tablet, 600 mg PO Q12H PRN 11/29/19 06/29/21 04/24/20 History extended release 12 hr levothyroxine 50 mcg tablet 50 mcg PO DAILY 11/29/19 06/29/21 06/28/21 08:00 History magnesium oxide 500 mg capsule 500 mg PO DAILY 11/29/19 06/29/21 09/04/20 History oxycodone 20 mg tablet 20 mg PO Q6H PRN 11/29/19 06/29/21 06/28/21 21:00 History potassium gluconate 595 mg (99 mg) 595 mg PO DAILY 11/29/19 06/29/21 09/04/20 History tablet pregabalin 150 mg capsule 150 mg PO TID 11/29/19 06/29/21 06/28/21 21:00 History rivaroxaban 20 mg tablet 20 mg PO DAILY 11/29/19 06/29/21 06/28/21 08:00 History venlafaxine 150 mg 150 mg PO DAILY 11/29/19 06/29/21 06/28/21 08:00 History capsule,extended release 24 hr trazodone 150 mg PO BEDTIME 12/01/19 06/29/21 06/28/21 21:00 History fentanyl 2 patch TOPICAL Q72H 12/04/19 06/29/21 06/26/21 08:00 History amlodipine 5 mg PO DAILY 09/04/20 06/29/21 06/28/21 08:00 History Allergies Allergy/AdvReac Type Severity Reaction Status Date / Time carboplatin AdvReac ADR-Vomitin Verified 03/10/21 11:00 g Current Medications Current Medications Generic Name Dose Route Start Last Admin Trade Name Freq PRN Reason Stop Dose Admin Albuterol/Ipratropium 3 ml 06/29/21 12:00 07/06/21 11:37 Ipratropium-Albuterol 3 Ml Neb INHALATION 3 ml Q4H.RESPIRATORY MORRIS Administration Budesonide 0.5 mg 06/29/21 18:00 07/06/21 08:05 Budesonide 0.5 Mg/2 Ml Neb INHALATION 0.5 mg BID MORRIS Administration Cyanocobalamin 500 mcg 06/30/21 09:00 07/06/21 08:22 Cyanocobalamin 1,000 Mcg Tablet PO 500 mcg DAILY MORRIS Administration Fentanyl 2 patch 06/29/21 13:30 07/05/21 14:32 Fentanyl 100 Mcg Patch TRANSDERMA 2 patch Q72H MORRIS Administration Folic Acid 1 mg 06/30/21 09:00 07/06/21 08:22 Folic Acid 1 Mg Tablet PO 1 mg DAILY MORRIS Administration Furosemide 40 mg 06/29/21 09:45 07/05/21 21:34 Furosemide 10 Mg/Ml Sdv 4ml IVP 40 mg Q12H MORRIS Administration Heparin Sodium (Beef Lung) 5,000 unit 07/01/21 21:00 09/19/21 08:22 Heparin 5,000 Unit/Ml Inj 1 Ml SUBCUT 5,000 unit Q12H MORRIS Administration Hydromorphone HCl 1 mg 06/29/21 23:13 07/06/21 14:12 Hydromorphone 1 Mg/Ml Inj 1 Ml IVP 1 mg Q4H PRN Administration PAIN Piperacillin Sod/Tazobactam 50 mls @ 12.5 mls/hr 07/04/21 10:00 07/06/21 13:51 Sod 3.375 gm/ Sodium Chloride IV 12.5 mls/hr Q8H MORRIS Administration Protocol Caspofungin 50 mg/ Sodium 250 mls @ 250 mls/hr 07/06/21 10:00 07/06/21 12:40 Chloride IV Infused Q24H MORRIS Infusion Linezolid 600 mg in 300 mls @ 300 mls/hr 07/06/21 09:00 07/06/21 11:42 Zyvox Premix IV Infused Q12H MORRIS Infusion Protocol Levothyroxine Sodium 25 mcg 07/01/21 09:00 07/06/21 08:21 Levothyroxine 100 Mcg Sdv IVP 25 mcg DAILY MORRIS Administration Methylprednisolone Sodium Succinate 30 mg 07/02/21 11:00 07/06/21 11:14 Methylprednisolone Sod Succ 40 Mg/Ml Inj IVP 30 mg Q24H MORRIS Administration Metoprolol Tartrate 2.5 mg 06/29/21 16:32 07/02/21 00:25 Metoprolol Tartrate 1 Mg/1 Ml Sdv 5 Ml IVP 2.5 mg Q4H PRN Administration For heart rate more than 100 b Morphine Sulfate 4 mg 07/04/21 12:13 07/06/21 09:29 Morphine 4 Mg/Ml Sdv 1 Ml IVP 4 mg Q4H PRN Administration SEVERE PAIN Ondansetron HCl 4 mg 06/29/21 09:14 07/04/21 14:17 Ondansetron 2 Mg/Ml Sdv 2 Ml IVP 4 mg Q6H PRN Administration vomiting, or N/V if npo Pantoprazole Sodium 40 mg 06/29/21 09:15 07/06/21 09:27 Pantoprazole 40 Mg Sdv IVP 40 mg Q12H MORRIS Administration Polyethylene Glycol 17 gm 07/02/21 09:00 07/06/21 08:22 Polyethylene Glycol 3350 Pkt 17 Gm PO 17 gm BID MORRIS Administration Promethazine HCl 12.5 mg 06/29/21 09:14 07/04/21 11:06 Promethazine 25 Mg/Ml Sdv 1 Ml IM 12.5 mg Q6H PRN Administration NAUSEA PFSH Acute PFSH: Medical History COPD (chronic obstructive pulmonary disease) Extrinsic ureteral obstruction Hydronephrosis, right Ovarian cancer on right Pelvic pain in female Recurrent UTI Secondary malignant neoplasm of other specified sites Small bowel obstruction Surgical History History of hysterectomy with bilateral oophorectomy History of right hemicolectomy S/P ureteral stent placement Family History Mother , at age 59 Cancer breast Myocardial infarction (lateral wall) Father Cancer prostate cancer Pacemaker Other CAD (coronary artery disease) Hypertension Social History Smoking and tobacco status: current every day smoker Alcohol intake: never Adopted: No Caregiver/support person: No Lives independently: No Household members: spouse Marital status: Current occupational status: disabled History of recent travel: No Female Reproductive History: Date of last menstrual period: 12/01/19 Vitals/I&O/Wt Last Vital Signs Temp 97.7 F 07/06/21 15:38 Pulse 93 07/06/21 15:38 Resp 18 07/06/21 15:38 BP 161/88 07/06/21 15:38 Pulse Ox 99 07/06/21 15:38 07/06/21 07/06/21 07/06/21 06:59 14:59 22:59 Intake Total 50 / 1005 800 / 1500 700 / 1500 Output Total 2200 / 4200 Balance -2150 / -3195 800 / 1500 700 / 1500 Weight last 48 hrs Weight 122 lb 3.2 oz Weight 128 lb 6.4 oz Physical Exam Narrative: EXAM NARRATIVE: HEENT: Normocephalic, BiPAP in place Eye: Sclera /conjunctiva normal Respiratory and chest: Port-A-Cath right chest, no cellulitis or hematoma Abdomen: Soft to palpation, mildly tender, nondistended Neurological: Oriented to place person and time Skin: Intact, no lesions appreciated on gross exam Urinary Catheter Management^: Joseph: Cath Placed During This Visit: yes Reason for Continuing Indwelling Catheter: Acute Urinary Retention or Obstruction Urinary Catheter Date of Insertion: 06/29/21 Urinary Catheter Time of Insertion: 09:00 Data Micro: Micro: Microbiology 07/02/21 12:05 Mycobacterial Smea r - Preliminary Sputum - Endotrac heal Wash 07/03/21 08:57 Blood Culture - Pr eliminary Blood Enterococcus fa ecium vre Yeast 07/03/21 08:55 Blood Culture - Pr eliminary Blood Enterococcus fa ecium vre Yeast A&P Assessment and plan (1) Bacteremia: 61-year-old female with recurrent ovarian cancer, respiratory failure and bowel obstruction who has developed bacteremia with positive blood cultures from the Port-A-Cath Plan for removal of Port-A-Cath under local anesthesia tomorrow Procedure, risks, benefits and alternatives have been discussed with the patient who wishes to proceed with surgery. Status: Acute Consult Attestations Medical Necessity Statement: As per attending physician Coding Level of Care Code Acute Signals Intelligence Analyst for Ceasar Castro Diagnoses Bacteremia R78.81
[2021-07-06] MEDS: lidocaine 1% 5 ML in potassium chloride premix 100 ML 25 ML IV (17:20)
[2021-07-06 23:17] LABS: P. Jirovecii DNA QL PCR NOT DETECTED
[2021-07-06 23:17] LABS: P. Jirovecii DNA QL PCR NOT DETECTED; P. Jirovecii DNA QL PCR Source SPUTUM
[2021-07-07] VITALS (35 sets, daily range): BP systolic 137–174; BP diastolic 75–106; PULSE 80–100; RESP 16–20; TEMP 36.4–37.2; O2SAT 86–98
[2021-07-07] MEDS: ipratropium-albuterol 3 mL Neb INHALATION ×5 (00:54→23:50)
[2021-07-07] MEDS: HYDROmorphone 1 mg/mL INJ 1 mL IVP ×4 (03:20→19:00)
[2021-07-07 05:16] LABS: Basophils % 0.2 %; Eosinophils % 0.7 %; Hematocrit 34.7 % (37.0-47.0); Hemoglobin 11.7 g/dL (11.5-15.3); Lymphocytes # 0.7 10^3/uL (0.8-4.8); Lymphocytes % 11.3 %; Mean Corpuscular HGB Conc 33.7 g/dL (30.0-36.0); Mean Corpuscular Hemoglobin 34.6 pg (28.0-34.0); Mean Corpuscular Volume 102.7 fl (81-99); Mean Platelet Volume 12.1 fL (7.4-10.4); Monocytes # 0.3 10^3/uL (0.2-0.9); Monocytes % 4.9 %; Neutrophils # 4.77 10^3/uL (1.8-7.7); Neutrophils % 80.5 %; Nucleated Red Blood Cells % 0 %; Platelet Count 87 10^3/cmm (130-400); Red Blood Count 3.38 10^6/uL (4.1-5.3); Red Cell Distribution Width 15.6 % (12.1-15.1); White Blood Count 5.9 10^3/uL (4.0-10.0)
[2021-07-07 05:40] LABS: Alanine Aminotransferase 24 U/L (0-33); Albumin Level 2.8 g/dL (3.5-5.2); Alkaline Phosphatase 56 IU/L (35-105); Aspartate Amino Transferase 18 U/L (0-32); Blood Urea Nitrogen 10 mg/dL (8-23); Calcium 8.7 mg/dL (8.5-10.5); Carbon Dioxide 33 mmol/L (22-29); Chloride 96 mmol/L (98-107); Globulin 2.7 g/dL (1.3-4.6); Glomerular Filtration Rate 124.6 mL/min (90-130); Glucose 88 mg/dL (65-115); Magnesium 1.9 mg/dL (1.7-2.3); Osmolality Calculated 278 mOsm/kg (285-295); Sodium 135 mmol/L (136-145); Total Bilirubin 0.8 mg/dL (0.15-1.2); Total Protein 5.5 g/dL (6.6-8.7)
[2021-07-07 05:43] LABS: Anion Gap 9.5 (5-19); Potassium 3.5 mmol/L (3.5-5.1)
[2021-07-07] MEDS: piperacillin-tazobactam 3.375 GM in sodium chloride 0.9% (plus) 50 ML IV ×3 (05:55→21:15)
--- NOTE | 2021-07-07 06:51 | P.PN_ITS ---
Subjective Subjective: Interval history: no issues overnight Vitals/I&O/Wt Last Vital Signs Temp 98.9 F 07/07/21 03:44 Pulse 94 07/07/21 06:36 Resp 18 07/07/21 06:36 BP 142/88 07/07/21 06:36 Pulse Ox 86 L 07/07/21 06:36 07/06/21 07/06/21 07/07/21 14:59 22:59 06:59 Intake Total 800 / 2555 1655 / 2555 100 / 2555 Output Total 900 / 1500 600 / 1500 Balance 800 / 1055 755 / 1055 -500 / 1055 Weight last 48 hrs Weight 122 lb 3.2 oz Physical Exam Narrative: EXAM NARRATIVE: Right chest: port a cath in place Urinary Catheter Management^: Joseph: Cath Placed During This Visit: yes Reason for Continuing Indwelling Catheter: Acute Urinary Retention or Obstruction Urinary Catheter Date of Insertion: 06/29/21 Urinary Catheter Time of Insertion: 09:00 Data : 07/07/21 05:05 07/07/21 05:05 Micro: Microbiology 07/02/21 12:05 Mycobacterial Smear - Preliminary Sputum - Endotracheal Wash 07/03/21 08:57 Blood Culture - Preliminary Blood Enterococcus faecium vre Yeast 07/03/21 08:55 Blood Culture - Preliminary Blood Enterococcus faecium vre Yeast A&P Assessment and plan (1) Bacteremia: 61-year-old female with recurrent ovarian cancer, respiratory failure and bowel obstruction who has developed bacteremia with positive blood cultures from the Port-A-Cath Plan for removal of Port-A-Cath under local anesthesia today Procedure, risks, benefits and alternatives have been discussed with the patient who wishes to proceed with surgery. Status: Acute Attestations Medical Necessity Statement*: port removal Coding Level of Care Code Acute Head Tennis Professional for Ceasar Castro Diagnoses Bacteremia R78.81
[2021-07-07] MEDS: lidocaine 1% INJ 20 mL 10 ML INJECTION (07:21)
--- NOTE | 2021-07-07 08:09 | PM.OP ---
Operative Report Date of procedure: July 07, 2021 Pre-op Diagnosis: Bacteremia, positive blood cultures from the Port-A-Cath Post-op diagnosis: same Procedure Done: Removal of Port-A-Cath from the right subclavian vein Specimens removed/disposition: Port and tip sent for cultures Surgeon: Wali Roland Anesthesia: General Condition: stable Disposition: PACU Procedure: Patient was taken to the operating room and her right chest was prepped and draped in a sterile manner. 20 mL of 1% lidocaine with 0.5% Marcaine was infiltrated around the MediPort and catheter in the right subclavian vein. Using a 15 blade the previous incision was opened, the subcutaneous tissue was divided using electrocautery and MediPort along the catheter was dissected free from the surrounding subcutaneous tissue and removed entirely. The wound was irrigated with saline, hemostasis ensured with electrocautery and subcutaneous tissue was approximated using 3-0 Vicryl suture and skin was closed using running subcuticular 4-0 Monocryl suture. 4x4 and sterile dressings were used as a pressure dressing. The patient was transferred to the recovery room in stable condition. The MediPort was sent to microbiology
[2021-07-07] MEDS: morphine 4 mg/mL SDV 1 mL IVP ×4 (08:27→21:05)
[2021-07-07] MEDS: pantoprazole 40 mg SDV IVP ×2 (08:29→20:52)
[2021-07-07] MEDS: folic acid 1 mg Tablet PO (08:29)
[2021-07-07] MEDS: polyethylene glycol 3350 Pkt 17 gm PO ×2 (08:29→17:21)
[2021-07-07] MEDS: cyanocobalamin 1,000 mcg Tablet 500 MCG PO (08:29)
[2021-07-07] MEDS: heparin 5,000 unit/mL INJ 1 mL 5000 UNIT SUBCUT ×2 (08:29→20:52)
[2021-07-07] MEDS: linezolid premix 600 MG/300 ML PREMIX 300 MG IV ×2 (08:34→20:59)
[2021-07-07] MEDS: levothyroxine 100 mcg SDV 25 MCG IVP (10:33)
--- NOTE | 2021-07-07 11:39 | PC.NUTR ---
Nutrition follow up: Noted Regular diet in place. Encouraged pt to increase po intake slowly and carefully. Pt verbalized understanding. If pt becomes once again unable to tolerate oral diet, recommend consideration of TPN (if consistent with pt's goals of care) to meet estimated nutritional needs until resolved, given poor nutritional intake since admission. See full RD assessment for further details.
--- NOTE | 2021-07-07 12:27 | PM.PN ---
Subjective Subjective: Interval history: Hospital course, labs appreciated. Seen post port removal today. Currently on 35 L 65% heated high flow saturating 94%. Seems comfortable in bed. is able to tolerate regular diet without nausea, vomiting. Last bowel movement yesterday. is able to get up and down by herself. We discussed the need for her to take multiple small meals, trying to do standing exercise echo just possible. We also discussed need for her being in the hospital for persistent bacteremia and fungemia. We also discussed that most likely she would need prolonged antibiotic and antifungal treatment for up to 6 weeks for which once the cultures are cleared up she would need a PICC line which unfortunately we cannot place right now because of ongoing fungemia. We also discussed regarding CODE STATUS and she states she would want to remain full code. Vitals/I&O/Wt Last Vital Signs Temp 97.6 F 07/07/21 11:14 Pulse 88 07/07/21 11:26 Resp 20 H 07/07/21 11:26 BP 137/78 07/07/21 11:14 Pulse Ox 95 07/07/21 11:26 07/06/21 07/07/21 07/07/21 22:59 06:59 14:59 Intake Total 1655 / 2455 100 / 2555 780 / 780 Output Total 900 / 900 600 / 1500 0 / 0 Balance 755 / 1555 -500 / 1055 780 / 780 Weight last 48 hrs Weight 57.691 kg Weight 55.429 kg Physical Exam Narrative: EXAM NARRATIVE: General: No acute distress, AO x3, in mild distress on 4 L oxygen mask, warm peripheries HEENT: PERRLA, pupils bilaterally equal and reactive Chest: Bilateral crackles present all over the lung shelley up to mid zone bilaterally, anterior more than posterior, decreased air entry bilaterally lower zone CVS: S1-S2 regular, no murmurs, tachycardia, no gallops, no rubs Abdomen: Soft, nontender, no organomegaly, bowel sounds sluggish Neuro: No focal deficits, no facial deformity, AO x3, power 5/5 in all limbs Urinary Catheter Management^: Joseph: Cath Placed During This Visit: yes Reason for Continuing Indwelling Catheter: Acute Urinary Retention or Obstruction Urinary Catheter Date of Insertion: 06/29/21 Urinary Catheter Time of Insertion: 09:00 Data : 07/07/21 05:05 07/07/21 05:05 Micro: Microbiology 07/03/21 08:57 Blood Culture - Final Blood Enterococcus faecium vre Yeast 07/03/21 08:55 Blood Culture - Final Blood Enterococcus faecium vre Yeast 07/07/21 10:24 Blood Culture - Preliminary Blood SPECIMEN COLLECTED 07/07/21 10:20 Blood Culture - Preliminary Blood SPECIMEN COLLECTED 07/02/21 12:05 Mycobacterial Smear - Preliminary Sputum - Endotracheal Wash A&P Assessment and plan (1) Multifocal pneumonia: Status: Acute (2) VRE bacteremia: Status: Acute (3) Fungemia: Status: Acute (4) Hypoxia: Status: Acute (5) Small bowel obstruction: As per discussion with patient and , no beds at [facility]. Given she has shown some improvement, abdominal discomfort resolved, no nausea, not vomiting. Subsequently may again seek evaluation with Dr. Rivera depending on her condition on inpatient or outpatient basis for consideration of debulking, adhesiolysis given recurrent episodes of bowel obstruction, vomiting preadmission resulting in likely contribution to hypoxia from aspiration pneumonitis, pneumonia. Risk of malnutrition, dehydration going forward. Complicated also by recurrent opioid induced ileus. CT abdomen pelvis noted, discussed with patient and . Due to involvement of ureter, iliac artery debulking and adhesiolysis not possible currently at this facility as per discussion with surgery over the weekend. So far no vomiting. We had discussed that she may get transient relief with NGT placement, however, she has declined NGT. Currently on bowel rest, sips and ice chips. In case continue to improve we discussed could trial some liquid diet, although in the long-term would anticipate bowel obstruction to continue to get worse, possibly leading to her demise if untreated due to either obstruction, or other complications like vomiting, aspiration, worsening hypoxia with pneumonitis and/or pneumonia. They understand this. Very prone to opioid induced ileus. Relistor. Continue standing bowel regimen. Status: Acute (6) Extrinsic ureteral obstruction: Status: Chronic (7) S/P ureteral stent placement: Status: Chronic (8) COPD (chronic obstructive pulmonary disease): Status: Acute (9) Ovarian cancer on right: Continue follow-up with Dr. Lynne. Progression noted on CT scan. Discussed also with her oncologist, as well as with her and her . Given progression with the current medication despite increased dose, as well as the risk associated for respiratory infection with Lynparza, likely will not continue on this medication. They understand there will be a difficult discussion with oncologist with regards to what further treatment options might still be available. Status: Acute (10) Renal failure: Resolved. Hold additional Lasix, avoid hypotension. History of right ureteral stent placement for obstruction secondary to recurrence of cancer. Status: Acute (11) Malnutrition: Status: Acute Additional A&P Information Sepsis secondary to VRE bacteremia/fungemia: Possible port infection?removed July 07. Repeat blood cultures every other day till negative for fungemia. Have requested lab for further ID desiccation and speciation. Continue with linezolid and caspofungin till further identification. We will consult ID. Given high suspicion of septic emboli to the lung patient would most likely need treatment for 6 weeks from negative cultures. Hypoxia secondary to multifocal pneumonia/possible septic emboli/possible lung abscesses: Post bronchoscopy. Bronchoscopy cultures growing pansensitive E. coli. Continue Zosyn. We will plan to do 10-day course. Continue with methylprednisone 30 mg IV daily. We will plan for slow taper within the next few days. DuoNebs every 4 hours, budesonide twice daily. Oxygen supplementation keeping saturation over 88%. Hypernatremia: Resolved. Sodium 135. Trial of CLD. CODE STATUS: Discussed with patient in detail again. She states she would like to remain full code. Protonix for PUD prophylaxis. Heparin 5000 every 12 for DVT prophylaxis. Regular diet with aggressive bowel regimen. PT/OT evaluation. Attestations Medical Necessity Statement*: Requires further hospitalization for management of ongoing VRE bacteremia, fungemia, hypoxia secondary to multifocal pneumonia/septic emboli to lung, malnutrition Time Spent in Patient Care: Greater than 35 minutes (>than 50% of time spent in counselling and/or direct pt care on unit). Coding Level of Care Code Acute Executive Relations Specialist for Chg Fwd Diagnoses Multifocal pneumonia J18.9 VRE bacteremia R78.81; B95.2; Z16.21 Fungemia B49 Hypoxia R09.02 Small bowel obstruction K56.609 Extrinsic ureteral obstruction N13.5 S/P ureteral stent placement Z96.0 COPD (chronic obstructive pulmonary disease) J44.9 Ovarian cancer on right C56.1 Renal failure N19 Malnutrition E46
[2021-07-07] MEDS: docusate sodium 10 mg/mL (5ml) Liq 25 MG PO (14:16)
[2021-07-07 16:47] LABS: Fungitell 1-3-B Glucan Assay <31 pg/mL; Interpretation NEGATIVE
[2021-07-07 17:08] LABS: Aspergillus AG,EIA NOT DETECTED; Aspergillus AG,EIA, Index <0.50
[2021-07-07] MEDS: budesonide 0.5 mg/2 mL Neb INHALATION (19:55)
[2021-07-07] MEDS: trazodone 150 mg Tablet PO (20:52)
[2021-07-08] VITALS (25 sets, daily range): BP systolic 128–162; BP diastolic 61–78; PULSE 65–94; RESP 16–20; TEMP 36.6–36.9; O2SAT 91–98
[2021-07-08] MEDS: HYDROmorphone 1 mg/mL INJ 1 mL IVP ×5 (00:20→19:18)
[2021-07-08] MEDS: ipratropium-albuterol 3 mL Neb INHALATION ×6 (04:00→23:27)
[2021-07-08 05:57] LABS: Basophils % 0.2 %; Eosinophils # 0.1 10^3/uL (0.0-0.8); Eosinophils % 1.4 %; Hemoglobin 10.8 g/dL (11.5-15.3); Lymphocytes # 0.6 10^3/uL (0.8-4.8); Lymphocytes % 14.2 %; Mean Corpuscular HGB Conc 33.8 g/dL (30.0-36.0); Mean Corpuscular Hemoglobin 34.6 pg (28.0-34.0); Mean Corpuscular Volume 102.6 fl (81-99); Mean Platelet Volume 11.6 fL (7.4-10.4); Monocytes # 0.3 10^3/uL (0.2-0.9); Monocytes % 6.3 %; Neutrophils % 74.2 %; Nucleated Red Blood Cells % 0 %; Platelet Count 108 10^3/cmm (130-400); Red Blood Count 3.12 10^6/uL (4.1-5.3); Red Cell Distribution Width 15.5 % (12.1-15.1); White Blood Count 4.3 10^3/uL (4.0-10.0)
[2021-07-08] MEDS: piperacillin-tazobactam 3.375 GM in sodium chloride 0.9% (plus) 50 ML IV ×3 (06:00→21:14)
[2021-07-08 06:11] LABS: Alanine Aminotransferase 22 U/L (0-33); Albumin Level 2.7 g/dL (3.5-5.2); Alkaline Phosphatase 55 IU/L (35-105); Anion Gap 10.2 (5-19); Aspartate Amino Transferase 14 U/L (0-32); Blood Urea Nitrogen 8 mg/dL (8-23); Calcium 8.7 mg/dL (8.5-10.5); Carbon Dioxide 32 mmol/L (22-29); Chloride 97 mmol/L (98-107); Globulin 2.4 g/dL (1.3-4.6); Glomerular Filtration Rate 124.6 mL/min (90-130); Glucose 86 mg/dL (65-115); Magnesium 1.6 mg/dL (1.7-2.3); Osmolality Calculated 280 mOsm/kg (285-295); Potassium 3.2 mmol/L (3.5-5.1); Sodium 136 mmol/L (136-145); Total Bilirubin 0.5 mg/dL (0.15-1.2); Total Protein 5.1 g/dL (6.6-8.7)
[2021-07-08] MEDS: budesonide 0.5 mg/2 mL Neb INHALATION ×2 (08:38→19:30)
[2021-07-08] MEDS: pantoprazole 40 mg SDV IVP ×2 (09:18→21:14)
[2021-07-08] MEDS: polyethylene glycol 3350 Pkt 17 gm PO (09:18)
[2021-07-08] MEDS: heparin 5,000 unit/mL INJ 1 mL 5000 UNIT SUBCUT ×2 (09:18→21:14)
[2021-07-08] MEDS: cyanocobalamin 1,000 mcg Tablet 500 MCG PO (09:19)
[2021-07-08] MEDS: folic acid 1 mg Tablet PO (09:19)
[2021-07-08] MEDS: linezolid premix 600 MG/300 ML PREMIX 300 MG IV ×2 (09:24→21:14)
[2021-07-08] MEDS: potassium chloride ER 20 mEq Tablet 40 MEQ PO (10:31)
[2021-07-08] MEDS: levothyroxine 100 mcg SDV 25 MCG IVP (10:32)
[2021-07-08] MEDS: docusate sodium 100 mg Capsule PO (10:32)
--- NOTE | 2021-07-08 10:41 | PC.NURSE ---
Patient requested that her spouse be here when the physician rounds on 07/09. I called and spoke with patient's spouse and informed him of this. He verbalizes understanding and states that he will be here by 10 on 07/09. I transferred the call to the patient's room for her to speak with him further.
[2021-07-08] MEDS: morphine 4 mg/mL SDV 1 mL IVP ×3 (10:47→20:54)
--- NOTE | 2021-07-08 13:08 | P.PN_ITS ---
Subjective Subjective: Interval history: No acute events overnight. Patient doing better. Currently on 5 L oxygen supplementation saturating 93%. Denies any nausea, vomiting, headache. Tolerating diet well. States he is feeling better. We discussed regarding possible discharge planning once the culture results come back negative and a PICC line placement. We also discussed possible place ment to SNF for IV antibiotics and antifungals. Patient states if needed she is okay with the same. Vitals/I&O/Wt Last Vital Signs Temp 97.8 F 07/08/21 11:11 Pulse 91 07/08/21 12:20 Resp 18 07/08/21 12:12 BP 149/78 07/08/21 11:11 Pulse Ox 93 07/08/21 12:12 07/07/21 07/08/21 07/08/21 22:59 06:59 14:59 Intake Total 590 / 1979 50 / 2030 470 / 470 Output Total 1800 / 1800 Balance 590 / 1979 -1750 / 230 470 / 470 Weight last 48 hrs Weight 60.419 kg Weight 57.691 kg Physical Exam Narrative: EXAM NARRATIVE: General: No acute distress, AO x3, on 4 L nasal cannula, warm peripheries HEENT: PERRLA, pupils bilaterally equal and reactive Chest: Bilateral crackles present all over the lung shelley up to mid zone bilaterally, anterior more than posterior, decreased air entry bilaterally lower zone CVS: S1-S2 regular, no murmurs, tachycardia, no gallops, no rubs Abdomen: Soft, nontender, no organomegaly, bowel sounds sluggish Neuro: No focal deficits, no facial deformity, AO x3, power 5/5 in all limbs Urinary Catheter Management^: Joseph: Cath Placed During This Visit: yes Reason for Continuing Indwelling Catheter: Acute Urinary Retention or Obstruction Urinary Catheter Date of Insertion: 06/29/21 Urinary Catheter Time of Insertion: 09:00 Data : 07/08/21 05:38 07/08/21 05:38 Micro: Microbiology 07/07/21 07:10 Catheter Tip Culture - Preliminary Other Source 07/07/21 07:10 Catheter Tip Culture - Preliminary Other Source 07/07/21 10:24 Blood Culture - Preliminary Blood NEGATIVE TO DATE 07/07/21 10:20 Blood Culture - Preliminary Blood NEGATIVE TO DATE 07/03/21 08:57 Blood Culture - Final Blood Enterococcus faecium vre Yeast 07/03/21 08:55 Blood Culture - Final Blood Enterococcus faecium vre Yeast A&P Assessment and plan (1) Multifocal pneumonia: Status: Acute (2) VRE bacteremia: Status: Acute (3) Fungemia: Status: Acute (4) Hypoxia: Status: Acute (5) Small bowel obstruction: As per discussion with patient and , no beds at [facility]. Given she has shown some improvement, abdominal discomfort resolved, no nausea, not vomiting. Subsequently may again seek evaluation with Dr. Rivera depending on her condition on inpatient or outpatient basis for consideration of debulking, adhesiolysis given recurrent episodes of bowel obstruction, vomiting preadmis christina resulting in likely contribution to hypoxia from aspiration pneumonitis, pneumonia. Risk of malnutrition, dehydration going forward. Complicated also by recurrent opioid induced ileus. CT abdomen pelvis noted, discussed with patient and . Due to involvement of ureter, iliac artery debulking and adhesiolysis not possible currently at this facility as per discussion with surgery over the weekend. So far no vomiting. We had discussed that she may get transient relief with NGT placement, however, she has declined NGT. Currently on bowel rest, sips and ice chips. In case continue to improve we discussed could trial some liquid diet, although in the long-term would anticipate bowel obstruction to continue to get worse, possibly leading to her demise if untreated due to either obstruction, or other complications like vomiting, aspiration, worsening hypoxia with pneumonitis and/or pneumonia. They understand this. Very prone to opioid induced ileus. Relistor. Continue standing bowel regimen. Status: Acute (6) Extrinsic ureteral obstruction: Status: Chronic (7) S/P ureteral stent placement: Status: Chronic (8) COPD (chronic obstructive pulmonary disease): Status: Acute (9) Ovarian cancer on right: Continue follow-up with Dr. Lynne. Progression noted on CT scan. Discussed also with her oncologist, as well as with her and her . Given progression with the current medication despite increased dose, as well as the risk associated for respiratory infection with Lynparza, likely will not continue on this medication. They understand there will be a difficult discussion with oncologist with regards to what further treatment options might still be available. Status: Acute (10) Renal failure: Resolved. Hold additional Lasix, avoid hypotension. History of right ureteral stent placement for obstruction secondary to recurrence of cancer. Status: Acute (11) Malnutrition: Status: Acute Additional A&P Information Sepsis secondary to VRE bacteremia/fungemia: Possible port infection?removed July 07. Repeat blood cultures every other day till negative for fungemia. Have requested lab for further ID desiccation and speciation. Continue with linezolid and caspofungin till further identification. We will consult ID. Given high suspicion of septic emboli to the lung patient would most likely need treatment for 6 weeks from negative cultures. Hypoxia secondary to multifocal pneumonia/possible septic emboli/possible lung abscesses: Post bronchoscopy. Bronchoscopy cultures growing pansensitive E. coli. Continue Zosyn. We will plan to do 10-day course. Switch from methylprednisone 30 mg to prednisone 20 mg daily for next 3 days and stop. DuoNebs every 4 hours, budesonide twice daily. Oxygen supplementation keeping saturation over 88%. Echocardiogram done earlier in the admission shows an EF 55 to 60% with possibly normal LV systolic functions in size. Patient euvolemic continue to hold on IV Lasix for now. Hypertension: Goal blood pressure less than 140/90 mmHg. Blood pressure improving. Stop home dose of enalapril given renal failure on admission along with right ureteral obstruction for which stent was placed. Start patient on amlodipine 5 mg oral daily. Hypernatremia: Resolved. Sodium 135. Trial of CLD. Replace potassium, magnesium. CODE STATUS: Discussed with patient in detail again. She states she would like to remain full code. Protonix for PUD prophylaxis. Heparin 5000 every 12 for DVT prophylaxis. Regular diet with aggressive bowel regimen. PT/OT evaluation. Attestations Medical Necessity Statement*: Requires further hospitalization for management of sepsis secondary to VRE bacteremia, fungemia, port infection Time Spent in Patient Care: Greater than 35 minutes (>than 50% of time spent in counselling and/or direct pt care on unit) . 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
[2021-07-08] MEDS: fentaNYL 100 mcg Patch 2 PATCH TRANSDERMA (13:40)
[2021-07-08] MEDS: amlodipine 5 mg Tablet PO (13:40)
--- NOTE | 2021-07-08 15:08 | PC.SOCIAL ---
IMM Update pg 2 of IMM updated and reviewed w/ patient. Copy provided.
[2021-07-08] MEDS: magnesium oxide 400 mg tablet PO (17:45)
[2021-07-08] MEDS: trazodone 150 mg Tablet PO (21:14)
[2021-07-09] VITALS (25 sets, daily range): BP systolic 112–156; BP diastolic 60–79; PULSE 64–94; RESP 16–20; TEMP 36.6–36.9; O2SAT 92–98
[2021-07-09] MEDS: HYDROmorphone 1 mg/mL INJ 1 mL IVP ×5 (02:47→21:40)
[2021-07-09] MEDS: ipratropium-albuterol 3 mL Neb INHALATION ×6 (03:18→23:50)
[2021-07-09] MEDS: morphine 4 mg/mL SDV 1 mL IVP ×4 (05:37→20:09)
[2021-07-09 05:44] LABS: Basophils % 0.3 %; Eosinophils # 0.1 10^3/uL (0.0-0.8); Eosinophils % 1.4 %; Hematocrit 31.2 % (37.0-47.0); Hemoglobin 10.2 g/dL (11.5-15.3); Lymphocytes # 0.5 10^3/uL (0.8-4.8); Lymphocytes % 14.6 %; Mean Corpuscular HGB Conc 32.7 g/dL (30.0-36.0); Mean Corpuscular Hemoglobin 34.6 pg (28.0-34.0); Mean Corpuscular Volume 105.8 fl (81-99); Mean Platelet Volume 11.3 fL (7.4-10.4); Monocytes # 0.3 10^3/uL (0.2-0.9); Monocytes % 8.8 %; Neutrophils # 2.57 10^3/uL (1.8-7.7); Nucleated Red Blood Cells % 0 %; Platelet Count 125 10^3/cmm (130-400); Red Blood Count 2.95 10^6/uL (4.1-5.3); Red Cell Distribution Width 15.7 % (12.1-15.1); White Blood Count 3.6 10^3/uL (4.0-10.0)
[2021-07-09] MEDS: piperacillin-tazobactam 3.375 GM in sodium chloride 0.9% (plus) 50 ML IV ×3 (06:06→21:39)
[2021-07-09] MEDS: levothyroxine 50 mcg Tablet PO ×2 (06:07→08:36)
[2021-07-09 06:09] LABS: Alanine Aminotransferase 25 U/L (0-33); Albumin Level 2.6 g/dL (3.5-5.2); Alkaline Phosphatase 52 IU/L (35-105); Anion Gap 11.2 (5-19); Aspartate Amino Transferase 18 U/L (0-32); Blood Urea Nitrogen 7 mg/dL (8-23); Calcium 8.5 mg/dL (8.5-10.5); Carbon Dioxide 29 mmol/L (22-29); Chloride 99 mmol/L (98-107); Globulin 2.6 g/dL (1.3-4.6); Glucose 91 mg/dL (65-115); Magnesium 1.8 mg/dL (1.7-2.3); Osmolality Calculated 280 mOsm/kg (285-295); Phosphorus 2.2 mg/dL (2.5-4.5); Potassium 3.2 mmol/L (3.5-5.1); Sodium 136 mmol/L (136-145); Total Bilirubin 0.4 mg/dL (0.15-1.2); Total Protein 5.2 g/dL (6.6-8.7)
[2021-07-09] MEDS: budesonide 0.5 mg/2 mL Neb INHALATION ×2 (08:04→19:39)
[2021-07-09] MEDS: pantoprazole 40 mg SDV IVP ×2 (08:35→20:09)
[2021-07-09] MEDS: predniSONE 10 mg Tablet 20 MG PO (08:35)
[2021-07-09] MEDS: polyethylene glycol 3350 Pkt 17 gm PO ×2 (08:35→17:45)
[2021-07-09] MEDS: docusate sodium 100 mg Capsule PO (08:36)
[2021-07-09] MEDS: amlodipine 5 mg Tablet PO (08:36)
[2021-07-09] MEDS: potassium chloride ER 20 mEq Tablet 40 MEQ PO (08:36)
[2021-07-09] MEDS: cyanocobalamin 1,000 mcg Tablet 500 MCG PO (08:36)
[2021-07-09] MEDS: folic acid 1 mg Tablet PO (08:36)
[2021-07-09] MEDS: venlafaxine ER (24HR) 150 mg Capsule PO (08:36)
[2021-07-09] MEDS: magnesium oxide 400 mg tablet PO ×2 (08:36→17:45)
[2021-07-09] MEDS: heparin 5,000 unit/mL INJ 1 mL 5000 UNIT SUBCUT ×2 (08:36→20:10)
[2021-07-09] MEDS: linezolid premix 600 MG/300 ML PREMIX 300 MG IV (08:51)
[2021-07-09 09:32] LABS: Vitamin B12 1921 pg/mL (232-1245)
[2021-07-09 09:33] LABS: Folate Level 11.9 ng/mL (4.8-37.3)
--- NOTE | 2021-07-09 15:17 | P.PN_ITS ---
Subjective Subjective: Interval history: No acute events overnight. Patient doing better. Currently on 4L oxygen supplementation saturating 93%. Denies any nausea, vomiting, headache. Tolerating diet well. States he is feeling better other than mild myalgia yesterday. at bedside. Discussed the plan of care in detail all the questions were answered. Vitals/I&O/Wt Last Vital Signs Temp 98.3 F 07/09/21 11:41 Pulse 82 07/09/21 11:41 Resp 18 07/09/21 13:30 BP 156/79 07/09/21 11:41 Pulse Ox 93 07/09/21 11:41 07/09/21 07/09/21 07/09/21 06:59 14:59 22:59 Intake Total 50 / 1120 1070 / 1070 Output Total 2200 / 2200 Balance 50 / 1120 -1130 / -1130 Weight last 48 hrs Weight 60.056 kg Weight 60.419 kg Physical Exam Narrative: EXAM NARRATIVE: General: No acute distress, AO x3, on 4 L nasal cannula, warm peripheries HEENT: PERRLA, pupils bilaterally equal and reactive Chest: Bilateral crackles present all over the lung shelley up to mid zone bilaterally, anterior more than posterior, decreased air entry bilaterally lower zone CVS: S1-S2 regular, no murmurs, tachycardia, no gallops, no rubs Abdomen: Soft, nontender, no organomegaly, bowel sounds sluggish Neuro: No focal deficits, no facial deformity, AO x3, power 5/5 in all limbs Urinary Catheter Management^: Joseph: Cath Placed During This Visit: yes Reason for Continuing Indwelling Catheter: Acute Urinary Retention or Obstruction Urinary Catheter Date of Insertion: 06/29/21 Urinary Catheter Time of Insertion: 09:00 Data : 07/09/21 05:23 07/09/21 05:23 Micro: Microbiology 07/07/21 07:10 Catheter Tip Culture - Final Other Source 07/07/21 07:10 Catheter Tip Culture - Final Other Source 07/07/21 10:24 Blood Culture - Preliminary Blood NEGATIVE TO DATE 07/07/21 10:20 Blood Culture - Preliminary Blood NEGATIVE TO DATE A&P Assessment and plan (1) Multifocal pneumonia: Status: Acute (2) VRE bacteremia: Status: Acute (3) Fungemia: Status: Acute (4) Hypoxia: Status: Acute (5) Small bowel obstruction: As per discussion with patient and , no beds at [facility]. Given she has shown some improvement, abdominal discomfort resolved, no nausea, not vomiting. Subsequently may again seek evaluation with Dr. Rivera depending on her condition on inpatient or outpatient basis for consideration of debulking, adhesiolysis given recurrent episodes of bowel obstruction, vomiting preadmission resulting in likely contribution to hypoxia from aspiration pneumonitis, pneumonia. Risk of malnutrition, dehydration going forward. Complicated also by recurrent opioid induced ileus. CT abdomen pelvis noted, discussed with patient and . Due to involvement of ureter, iliac artery debulking and adhesiolysis not possible currently at this facility as per discussion with surgery over the weekend. So far no vomiting. We had discussed that she may get transient relief with NGT placement, however, she has declined NGT. Currently on bowel rest, sips and ice chips. In case continue to improve we discussed could trial some liquid diet, although in the long-term would anticipate bowel obstruction to continue to get worse, possibly leading to her demise if untreated due to either obstruction, or other complications like vomiting, aspiration, worsening hypoxia with pneumonitis and/or pneumonia. They understand this. Very prone to opioid induced ileus. Relistor. Continue standing bowel regimen. Status: Acute (6) Extrinsic ureteral obstruction: Status: Chronic (7) S/P ureteral stent placement: Status: Chronic (8) COPD (chronic obstructive pulmonary disease): Status: Acute (9) Ovarian cancer on right: Continue follow-up with Dr. Lynne. Progression noted on CT scan. Discussed also with her oncologist, as well as with her and her . Given progression with the current medication despite increased dose, as well as the risk associated for respiratory infection with Lynparza, likely will not c ontinue on this medication. They understand there will be a difficult discussion with oncologist with regards to what further treatment options might still be available. Status: Acute (10) Renal failure: Resolved. Hold additional Lasix, avoid hypotension. History of right ureteral stent placement for obstruction secondary to recurrence of cancer. Status: Acute (11) Malnutrition: Status: Acute Additional A&P Information Sepsis secondary to VRE bacteremia/fungemia: Possible port infection?removed July 07. Repeat blood cultures every other day till negative for fungemia. Fungal culture positive for Lauryn albicans. Awaiting sensitivities. Switch to linezolid because of possible leukopenia and anemia to daptomycin for now. Continue with caspofungin. Appreciate ID recommendations. Given high suspicion of septic emboli to the lung patient would most likely need treatment for 6 weeks from negative cultures. Hypoxia secondary to multifocal pneumonia/possible septic emboli/possible lung abscesses: Post bronchoscopy. Bronchoscopy cultures growing pansensitive E. coli. Continue Zosyn. We will plan to do 10-day course. Last dose on July 11. Switch from methylprednisone 30 mg to prednisone 20 mg daily for next 3 days and stop. DuoNebs every 4 hours, budesonide twice daily. Oxygen supplementation keeping saturation over 88%. Echocardiogram done earlier in the admission shows an EF 55 to 60% with possibly normal LV systolic functions in size. Patient euvolemic continue to hold on IV Lasix for now. Hypertension: Goal blood pressure less than 140/90 mmHg. Blood pressure improving. Stop home dose of enalapril given renal failure on admission along with right ureteral obstruction for which stent was placed. Continue with amlodipine 10 mg oral daily. Hypernatremia: Resolved. Sodium 135. Trial of CLD. Replace potassium, magnesium. CODE STATUS: Discussed with patient in detail again. She states she would like to remain full code. Protonix for PUD prophylaxis. Heparin 5000 every 12 for DVT prophylaxis. Regular diet with aggressive bowel regimen. PT/OT evaluation. Attestations Medical Necessity Statement*: Requires further hospitalization for management of sepsis secondary to VRE bacteremia, candidemia secondary to port infection Time Spent in Patient Care: Greater than 35 minutes (>than 50% of time sp ent in counselling and/or direct pt care on unit) . 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
[2021-07-09] MEDS: trazodone 150 mg Tablet PO (20:10)
[2021-07-10] VITALS (20 sets, daily range): BP systolic 135–157; BP diastolic 78–89; PULSE 72–96; RESP 14–20; TEMP 36.4–36.7; O2SAT 90–97
[2021-07-10 03:21] LABS: Basophils % 0.3 %; Eosinophils # 0.1 10^3/uL (0.0-0.8); Eosinophils % 2.1 %; Hematocrit 30.9 % (37.0-47.0); Lymphocytes # 0.7 10^3/uL (0.8-4.8); Lymphocytes % 19.3 %; Mean Corpuscular HGB Conc 32.4 g/dL (30.0-36.0); Mean Corpuscular Hemoglobin 34.2 pg (28.0-34.0); Mean Corpuscular Volume 105.8 fl (81-99); Mean Platelet Volume 10.4 fL (7.4-10.4); Monocytes # 0.4 10^3/uL (0.2-0.9); Monocytes % 9.5 %; Neutrophils # 2.44 10^3/uL (1.8-7.7); Neutrophils % 64.3 %; Nucleated Red Blood Cells % 0 %; Platelet Count 138 10^3/cmm (130-400); Red Blood Count 2.92 10^6/uL (4.1-5.3); Red Cell Distribution Width 15.8 % (12.1-15.1); White Blood Count 3.8 10^3/uL (4.0-10.0)
[2021-07-10] MEDS: morphine 4 mg/mL SDV 1 mL IVP (03:22)
[2021-07-10] MEDS: ipratropium-albuterol 3 mL Neb INHALATION ×5 (03:37→19:40)
[2021-07-10 03:46] LABS: Magnesium 1.9 mg/dL (1.7-2.3); Phosphorus 2.3 mg/dL (2.5-4.5)
[2021-07-10] MEDS: piperacillin-tazobactam 3.375 GM in sodium chloride 0.9% (plus) 50 ML IV (05:27)
[2021-07-10] MEDS: HYDROmorphone 1 mg/mL INJ 1 mL IVP ×4 (05:34→18:18)
--- NOTE | 2021-07-10 06:52 | PM.CONSULT ---
Providers/Reason For Consult Consulting Physician/Specialty*: lillian Moreno Md/Infectious disease Reason for Consult*: VRE and true bacteremia, duration of treatment Attending Physician: Chad Canchola MD Primary Care Provider: Ravi Lynne MD History of Present Illness History of Present Illness Nisreen Carrasco is a 61 year old female with PMH as outlined below, chiefly ovarian mass with recurrent SBOs who presented to the hospital as a tx from OSH for pneumonia and recurrent SBO. Please see detailed hospitalist notes. During course of evaluation found to have bacteremia with VRE fecium on 07/03 and yeast spp evnetually identified as True albicans from send out lab. She had a port which was subsequently removed on 07/07. TTE 07/03 without evidence of vegetations. Ct chest raised concern for cystic-appearing lesions could represent central lobar emphysema with inflammatory change, inflammatory pneumatoceles, or less likely small lung abscesses. Underwent bronchoscopy on 07/02 which resulted with growth of E.coli. CT abd/pelvis showed Small bowel obstruction which appears to be secondary to recurrent tumor in the right lower quadrant, managed conservatively. SBO now resolved .She has been on treatment with Zosyn, daptomycin and caspofungin thus far. ID consulted regarding recommendations for treatment duration. Review of Systems General: Reports: 10 or more systems reviewed and unremarkable except in HPI and below Const: Denies: fever(s), chills or body aches Eyes: Denies: change in vision, blurry vision or photophobia ENMT: Reports: hoarseness; Denies: throat pain, enlarged tonsils, odynophagia or nasal congestion Card: Denies: chest pain, palpitations, irregular heart rhythm, edema, swelling of feet/ankles, lightheadedness, pre-syncope, dyspnea on exertion or orthopnea Resp: Denies: dyspnea, productive cough, non-productive cough, wheezing, stridor, pain on inspiration, change in phlegm color, hemoptysis or chest congestion GI: Denies: abdominal pain, nausea, vomiting, hematemesis, coffee ground emesis, dysphagia, heartburn, diarrhea, constipation, GI cramping, change in stool character, hematochezia or melena : Denies: flank pain, difficulty voiding, dysuria, urinary frequency, urinary urgency, urinary hesitancy or hematuria Musc: Denies: neck pain, back pain, extremity pain, joint swelling, joint warmth or deformity Neuro: Denies: headache(s), numbness in extremities, weakness in extremities, sensory changes, difficulty walking, frequent falls, dizziness, vertigo, behavioral changes, Slurred speech present or seizure-like activity Psych: Denies: anxiety, depression, suicidal ideation or homicidal ideation Endo: Denies: polyuria, polydipsia, tired all the time, cold intolerance or hot flashes Kashif/Lymph: Denies: easy bruising or easy bleeding Meds/Allergies Home Medications and Allergies Home Medications Medication Instructions Recorded Confirmed Last Taken Type albuterol sulfate 90 mcg/actuation 2 inh INHALATION Q6H PRN 11/29/19 06/29/21 06/28/21 14:00 History breath activated powder inhaler biotin 1,000 mcg chewable tablet 1,000 mcg PO DAILY 11/29/19 06/29/21 09/04/20 History esomeprazole magnesium 40 mg 40 mg PO BID cap 11/29/19 06/29/21 06/28/21 21:00 History capsule,delayed release guaifenesin 600 mg tablet, 600 mg PO Q12H PRN 11/29/19 06/29/21 04/24/20 History extended release 12 hr levothyroxine 50 mcg tablet 50 mcg PO DAILY 11/29/19 06/29/21 06/28/21 08:00 History magnesium oxide 500 mg capsule 500 mg PO DAILY 11/29/19 06/29/21 09/04/20 History oxycodone 20 mg tablet 20 mg PO Q6H PRN 11/29/19 06/29/21 06/28/21 21:00 History potassium gluconate 595 mg (99 mg) 595 mg PO DAILY 11/29/19 06/29/21 09/04/20 History tablet pregabalin 150 mg capsule 150 mg PO TID 11/29/19 06/29/21 06/28/21 21:00 History rivaroxaban 20 mg tablet 20 mg PO DAILY 11/29/19 06/29/21 06/28/21 08:00 History venlafaxine 150 mg 150 mg PO DAILY 11/29/19 06/29/21 06/28/21 08:00 History capsule,extended release 24 hr trazodone 150 mg PO BEDTIME 12/01/19 06/29/21 06/28/21 21:00 History fentanyl 2 patch TOPICAL Q72H 12/04/19 06/29/21 06/26/21 08:00 History amlodipine 10 mg PO DAILY 30 Days #60 tab 07/11/21 Unknown Rx fluconazole 400 mg PO DAILY 21 Days #84 tab 07/11/21 Unknown Rx linezolid 600 mg PO Q12H 21 Days #42 tab 07/11/21 Unknown Rx metoprolol tartrate 25 mg PO BID@0900,2100 30 Days #60 07/11/21 Unknown Rx tab polyethylene glycol 3350 17 g PO BID 30 Days #100 ea 07/11/21 Unknown Rx [Powderlax] Allergies Allergy/AdvReac Type Severity Reaction Status Date / Time carboplatin AdvReac ADR-Vomitin Verified 03/10/21 11:00 g Current Medications Current Medications Generic Name Dose Route Start Last Admin Trade Name Freq PRN Reason Stop Dose Admin Albuterol/Ipratropium 3 ml 06/29/21 12:00 07/10/21 03:37 Ipratropium-Albuterol 3 Ml Neb INHALATION 3 ml Q4H.RESPIRATORY MORRIS Administration Budesonide 0.5 mg 06/29/21 18:00 07/09/21 19:39 Budesonide 0.5 Mg/2 Ml Neb INHALATION 0.5 mg BID MORRIS Administration Cyanocobalamin 500 mcg 06/30/21 09:00 07/09/21 08:36 Cyanocobalamin 1,000 Mcg Tablet PO 500 mcg DAILY MORRIS Administration Docusate Sodium 100 mg 07/08/21 09:00 07/09/21 08:36 Docusate Sodium 100 Mg Capsule PO 100 mg DAILY MORRIS Administration Fentanyl 2 patch 06/29/21 13:30 07/08/21 13:40 Fentanyl 100 Mcg Patch TRANSDERMA 2 patch Q72H MORRIS Administration Folic Acid 1 mg 06/30/21 09:00 07/09/21 08:36 Folic Acid 1 Mg Tablet PO 1 mg DAILY MORRIS Administration Furosemide 40 mg 06/29/21 09:45 07/05/21 21:34 Furosemide 10 Mg/Ml Sdv 4ml IVP 40 mg Q12H MORRIS Administration Heparin Sodium (Beef Lung) 5,000 unit 07/01/21 21:00 07/09/21 20:10 Heparin 5,000 Unit/Ml Inj 1 Ml SUBCUT 5,000 unit Q12H MORRIS Administration Hydromorphone HCl 1 mg 06/29/21 23:13 07/10/21 05:34 Hydromorphone 1 Mg/Ml Inj 1 Ml IVP 1 mg Q4H PRN Administration PAIN Piperacillin Sod/Tazobactam 50 mls @ 12.5 mls/hr 07/04/21 10:00 07/10/21 05:27 Sod 3.375 gm/ Sodium Chloride IV 07/11/21 23:59 12.5 mls/hr Q8H MORRIS Administration Protocol Caspofungin 50 mg/ Sodium 250 mls @ 250 mls/hr 07/06/21 10:00 07/09/21 16:07 Chloride IV Infused Q24H MORRIS Infusion Daptomycin 360 mg/ Sodium 100 mls @ 100 mls/hr 07/09/21 15:00 07/09/21 17:14 Chloride IV Infused Q24H MORRIS Infusion Protocol Levothyroxine Sodium 50 mcg 07/09/21 07:00 07/09/21 08:36 Levothyroxine 50 Mcg Tablet PO 50 mcg DAILY MORRIS Administration Magnesium Oxide 400 mg 07/08/21 18:00 07/09/21 17:45 Magnesium Oxide 400 Mg Tablet PO 400 mg BID MORRIS Administration Metoprolol Tartrate 2.5 mg 06/29/21 16:32 07/02/21 00:25 Metoprolol Tartrate 1 Mg/1 Ml Sdv 5 Ml IVP 2.5 mg Q4H PRN Administration For heart rate more than 100 b Morphine Sulfate 4 mg 07/04/21 12:13 07/10/21 03:22 Morphine 4 Mg/Ml Sdv 1 Ml IVP 4 mg Q4H PRN Administration SEVERE PAIN Ondansetron HCl 4 mg 06/29/21 09:14 07/04/21 14:17 Ondansetron 2 Mg/Ml Sdv 2 Ml IVP 4 mg Q6H PRN Administration vomiting, or N/V if npo Pantoprazole Sodium 40 mg 06/29/21 09:15 07/09/21 20:09 Pantoprazole 40 Mg Sdv IVP 40 mg Q12H MORRIS Administration Polyethylene Glycol 17 gm 07/02/21 09:00 07/09/21 17:45 Polyethylene Glycol 3350 Pkt 17 Gm PO 17 gm BID MORRIS Administration Potassium Chloride 40 meq 07/08/21 10:30 07/09/21 08:36 Potassium Chloride Er 20 Meq Tablet PO 40 meq DAILY MORRIS Administration Prednisone 20 mg 07/09/21 09:00 07/09/21 08:35 Prednisone 10 Mg Tablet PO 07/12/21 08:59 20 mg DAILY MORRIS Administration Promethazine HCl 12.5 mg 06/29/21 09:14 07/04/21 11:06 Promethazine 25 Mg/Ml Sdv 1 Ml IM 12.5 mg Q6H PRN Administration NAUSEA Trazodone HCl 150 mg 07/06/21 21:00 07/09/21 20:10 Trazodone 150 Mg Tablet PO 150 mg BEDTIME MORRIS Administration Venlafaxine HCl 150 mg 07/09/21 09:00 07/09/21 08:36 Venlafaxine Er (24hr) 150 Mg Capsule PO 150 mg DAILY MORRIS Administration PFSH Acute PFSH: Medical History (Updated 07/22/21 @ 00:01 by ) Chronic anticoagulation COPD (chronic obstructive pulmonary disease) COPD exacerbation Extrinsic ureteral obstruction History of DVT (deep vein thrombosis) Hydronephrosis, right Hypoxia Ovarian cancer on right Pelvic pain in female Recurrent UTI Renal failure Secondary malignant neoplasm of other specified sites Small bowel obstruction Surgical History (Updated 07/12/21 @ 00:01 by ) History of hysterectomy with bilateral oophorectomy History of right hemicolectomy S/P ureteral stent placement Family History Mother , at age 59 Cancer breast Myocardial infarction (lateral wall) Father Cancer prostate cancer Pacemaker Other CAD (coronary artery disease) Hypertension Social History Smoking and tobacco status: current every day smoker Alcohol intake: never Adopted: No Caregiver/support person: No Lives independently: No Household members: spouse Marital status: Current occupational status: disabled History of recent travel: No Female Reproductive History: Date of last menstrual period: 12/01/19 Vitals/I&O/Wt Last Vital Signs Temp 98.1 F 07/10/21 04:00 Pulse 84 07/10/21 04:00 Resp 18 07/10/21 05:34 BP 148/80 07/10/21 04:00 Pulse Ox 95 07/10/21 04:00 07/09/21 07/09/21 07/10/21 14:59 22:59 06:59 Intake Total 1070 / 1070 640 / 1710 250 / 1960 Output Total 2200 / 2200 500 / 2700 1000 / 3700 Balance -1130 / -1130 140 / -990 -750 / -1740 Weight last 48 hrs Weight 59.874 kg Weight 60.056 kg Physical Exam Narrative: EXAM NARRATIVE: GEN: Awake, alert and oriented, no acute distress CVS: S1S2 N RS: CTA B/L except crackles over RUL Abd: Soft, distended COPY COORDINATOR: no focal neuro deficits Urinary Catheter Management^: Joseph: Cath Placed During This Visit: yes Reason for Continuing Indwelling Catheter: Accurate Measurement of Urinary Output in Critically Ill Patients Urinary Catheter Date of Insertion: 06/29/21 Urinary Catheter Time of Insertion: 09:00 Data Micro: Micro: Microbiology 07/09/21 15:38 Blood Culture - Pr eliminary Blood SPECIMEN [facility] 07/09/21 15:32 Blood Culture - Pr eliminary Blood SPECIMEN [facility] 07/07/21 07:10 Catheter Tip Cultu re - Final Other Source 07/07/21 07:10 Catheter Tip Cultu re - Final Other Source Other Data: Attestation for Other Data: I personally reviewed and interpreted the following: Other data: Laboratory Results WBC 3.6 10^3/uL (4.0- 10.0) L 07/11/21 05:24 RBC 3.13 10^6/uL (4.1 -5.3) L 07/11/21 05:24 Hgb 10.7 g/dL (11.5-1 5.3) L 07/11/21 05:24 Hct 32.9 % (37.0-47.0 ) L 07/11/21 05:24 MCV 105.1 fl (81-99) H 07/11/21 05:24 MCH 34.2 pg (28.0-34. 0) H 07/11/21 05:24 MCHC 32.5 g/dL (30.0-3 6.0) 07/11/21 05:24 RDW 15.4 % (12.1-15.1 ) H 07/11/21 05:24 Plt Count 170 10^3/cmm (130 -400) 07/11/21 05:24 MPV 10.1 fL (7.4-10.4 ) 07/11/21 05:24 Neut % (Auto) 63.5 % 07/11/21 05:24 Lymph % (Auto) 20.2 % 07/11/21 05:24 Cottle % (Auto) 10.1 % 07/11/21 05:24 Eos % (Auto) 1.1 % 07/11/21 05:24 Baso % (Auto) 0.6 % 07/11/21 05:24 Reticulocyte % (Au to) 1.2 % (0.5-2.0) 06/29/21 10:02 Neut # (Auto) 2.26 10^3/uL (1.8 -7.7) 07/11/21 05:24 Lymph # (Auto) 0.7 10^3/uL (0.8- 4.8) L 07/11/21 05:24 Cottle # (Auto) 0.4 10^3/uL (0.2- 0.9) 07/11/21 05:24 Eos # (Auto) 0.0 10^3/uL (0.0- 0.8) 07/11/21 05:24 Baso # (Auto) 0.0 10^3/uL (0.0- 0.1) 07/11/21 05:24 Nucleated RBC % (a uto) 0.6 % 07/11/21 05:24 Total Counted 100 (0-100) 07/01/21 05:20 Atypical Lymphs % 1.0 % (0-5) 07/01/21 05:20 Absolute Neutrophi ls 6.7 10^3/cmm (1.4 -6.5) H 07/01/21 05:20 Segmented Neutroph ils 66 % 07/01/21 05:20 Abs Segm Neuts (Ma n) 5.3 10/cmm (1.6-7 .1) 07/01/21 05:20 Band Neutrophils 18.0 % 07/01/21 05:20 Abs Band Neuts (Ma n) 1.4 10^3/cmm (0.0 -1.2) H 07/01/21 05:20 Absolute Lymphocyt es 0.6 10^3/cmm (1.2 -3.4) L 07/01/21 05:20 Lymphocytes (Manua l) 6 % 07/01/21 05:20 Monocytes (Manual) 2.0 % 07/01/21 05:20 Absolute Monocytes 0.2 10^3/cmm (0.1 -0.6) 07/01/21 05:20 Eosinophils (Manua l) 0 % 07/01/21 05:20 Absolute Eosinophi ls 0.0 10^3/cmm (0.0 -0.7) 07/01/21 05:20 Basophils (Manual) 0.0 % 07/01/21 05:20 Absolute Basophils 0.0 10^3/cmm (0.0 -0.2) 07/01/21 05:20 Metamyelocytes 7.0 % 07/01/21 05:20 Nucleated RBCs # 0.0 /100WBC 07/11/21 05:24 Platelet Estimate Decreased (Carmelina l) L 07/01/21 05:20 D-Dimer 4.10 ug/mIFEU (0- 0.59) H 06/29/21 10:02 Specimen Type Arterial 06/29/21 11:45 Sample Site Radial, left 06/29/21 11:45 ABG pH 7.45 (7.35-7.45) 06/29/21 11:45 ABG pCO2 38.9 mmHg (35-45) 06/29/21 11:45 ABG pO2 66.1 mmHg (80.0-1 00.0) L 06/29/21 11:45 ABG HCO3 26.9 mmol/L (22-2 6) H 06/29/21 11:45 ABG O2 Saturation 91.2 06/29/21 09:10 ABG Base Excess 2.7 mmol/L (-2.0- 2.0) H 06/29/21 11:45 Caesar Test Pos 06/29/21 11:45 A-a O2 Gradient 77.6 mmHg (5-10) H 06/29/21 09:10 Hematocrit 40.6 % (37-47) 06/29/21 11:45 Hgb O2 Saturation 89.1 % (95-100) L 06/29/21 09:10 Carboxyhemoglobin 1.5 %THgb (0.4-20 .1) 06/29/21 09:10 Methemoglobin 0.8 % (0.4-1.5) 06/29/21 09:10 Total Hemoglobin 12.3 g/dL (12-16) 06/29/21 09:10 Sodium 132.0 mmol/L (131 -143) 06/29/21 09:10 Potassium 4.4 mmol/L (3.5-5 .0) 06/29/21 09:10 Glucose 84.0 mg/dL (70-11 5) 06/29/21 09:10 Ionized Calcium 1.2 mmol/L (1.1-1 .4) 06/29/21 09:10 O2 Delivery Device Bipap 06/29/21 11:45 FiO2 75.0 % 06/29/21 11:45 Student Union Consultant ID Amh 06/29/21 11:45 Sodium 136 mmol/L (136-1 45) 07/11/21 05:24 Potassium 3.8 mmol/L (3.5-5 .1) 07/11/21 05:24 Chloride 101 mmol/L (98-10 7) 07/11/21 05:24 Carbon Dioxide 28 mmol/L (22-29) 07/11/21 05:24 Anion Gap 10.8 (5-19) 07/11/21 05:24 BUN 7 mg/dL (8-23) L 07/11/21 05:24 Creatinine 0.5 mg/dL (0.5-0. 9) 07/11/21 05:24 GFR Calculation 124.6 mL/min (90- 130) 07/11/21 05:24 Glucose 76 mg/dL (65-115) 07/11/21 05:24 POC Glucose 243 mg/dL (70-110 ) H 07/03/21 11:59 Estimat Average Gl ucose 88 06/30/21 04:10 Hemoglobin A1c 4.7 % (4.0-6.0) 06/30/21 04:10 Calculated Osmolal ity 279 mOsm/kg (285- 295) L 07/11/21 05:24 Lactic Acid 1.8 mmol/L (0.5-2 .2) 06/29/21 10:02 Calcium 8.8 mg/dL (8.5-10 .5) 07/11/21 05:24 Phosphorus 2.3 mg/dL (2.5-4. 5) L 07/10/21 03:10 Magnesium 1.9 mg/dL (1.7-2. 3) 07/10/21 03:10 Iron 9 ug/dL (37-145) L 06/29/21 10:02 TIBC 166 mcg/dl 06/29/21 10:02 % Saturation 5.4 % (20-50) L 06/29/21 10:02 Unsat Iron Binding 157 ug/dL (112-34 7) 06/29/21 10:02 Total Bilirubin 0.5 mg/dL (0.15-1 .2) 07/11/21 05:24 AST 18 U/L (0-32) 07/11/21 05:24 ALT 28 U/L (0-33) 07/11/21 05:24 Alkaline Phosphata se 58 IU/L (35-105) 07/11/21 05:24 NT-Pro-B Natriuret Pep 3144 pg/mL (0-125 ) H 06/29/21 10:02 Total Protein 5.5 g/dL (6.6-8.7 ) L 07/11/21 05:24 Albumin 2.8 g/dL (3.5-5.2 ) L 07/11/21 05:24 Globulin 2.7 g/dL (1.3-4.6 ) 07/11/21 05:24 Triglycerides 139 mg/dL (0-150) 06/30/21 04:10 Cholesterol 101 mg/dL (0-200) 06/30/21 04:10 LDL Cholesterol, C alc 29 mg/dL (50-129) L 06/30/21 04:10 Total VLDL Cholest nate 28 mg/dL (0-30) 06/30/21 04:10 HDL Cholesterol 44 mg/dL (60-100) L 06/30/21 04:10 Cholesterol/HDL Ra orquidea 2.30 mg/dL (0.0-4 .40) 06/30/21 04:10 Vitamin B12 1921 pg/mL (232-1 245) H 07/08/21 05:38 Folate 11.9 ng/mL (4.8-3 7.3) 07/08/21 05:38 Procalcitonin > 100.00 ng/mL (0 -0.5) H 06/29/21 10:02 TSH 0.57 uIU/mL (0.27 -4.20) 06/29/21 10:02 Random Cortisol 90.71 ug/dL (2.47 -19.5) H 06/30/21 04:10 Urine Color Miriam (Yellow) 06/29/21 09:41 Urine Appearance Cloudy (CLEAR) 06/29/21 09:41 Urine pH 5 (5-7) 06/29/21 09:41 Ur Specific Gravit y 1.015 (1.005-1.0 30) 06/29/21 09:41 Urine Protein 1+ (Negative) H 06/29/21 09:41 Urine Glucose (UA) Norm (Normal) 06/29/21 09:41 Urine Ketones Negative (Negati ve) 06/29/21 09:41 Urine Blood 3+ (Negative) H 06/29/21 09:41 Urine Nitrate Negative (Negati ve) 06/29/21 09:41 Urine Bilirubin 1+ (Negative) H 06/29/21 09:41 Urine Urobilinogen 1 mg/dL (Negative ) H 06/29/21 09:41 Ur Leukocyte Genesis ase Negative (Negati ve) 06/29/21 09:41 Urine RBC Too numerous to c nt /hpf (0-2) H 06/29/21 09:41 Urine WBC 5-10 /hpf (0-5) H 06/29/21 09:41 Ur Eosinophil Smea r 0 (0-0) 06/29/21 16:30 Ur Squamous Epith Cells 0-4 /hpf (0-5) H 06/29/21 09:41 Amorphous Sediment Not Reportable 06/29/21 09:41 Urine Bacteria 2+ /hpf (NONE) H 06/29/21 09:41 Coarse Granular Ca sts 0-4 /lpf H 06/29/21 09:41 Urine Eosinophils No eosinophils se en 06/29/21 16:30 Ur Random Sodium < 10 mmol/L 06/29/21 09:41 Ur Random Potassiu m 60 mmol/L 06/29/21 09:41 Ur Random Chloride < 10 mmol/L 06/29/21 09:41 Urine Creatinine 111 mg/dL (28-217 ) 06/29/21 09:41 RSV Nasal Swab Cancelled 07/02/21 12:05 RSV Nasal Swab Int Cntl Cancelled 07/02/21 12:05 Vancomycin Trough 12.4 ug/mL (- ) 07/06/21 03:02 Adenovirus (PCR) Cancelled 07/02/21 12:05 Human Metapneumovi r PCR Cancelled 07/02/21 12:05 Influenza A (RT-PC R) Cancelled 07/02/21 12:05 Influenza A (H1) P CR Cancelled 07/02/21 12:05 Influenza A (H3) P CR Cancelled 07/02/21 12:05 Influenza B (RT-PC R) Cancelled 07/02/21 12:05 Parainfluenzae Typ e 1 Cancelled 07/02/21 12:05 Parainfluenzae Typ e 2 Cancelled 07/02/21 12:05 Parainfluenzae Typ e 3 Cancelled 07/02/21 12:05 Pneumocystis Sourc e 07/02/21 12:05 Pneumocyst jirovec i PCR Not detected 07/02/21 12:05 Aspergillus Ag (EI A) Not detected 07/02/21 12:05 A. galactomannan A g Idx <0.50 07/02/21 12:05 RSV Ab Comment Cancelled 07/02/21 12:05 Rhinovirus (PCR) Cancelled 07/02/21 12:05 SARS-CoV-2 RNA (RT -PCR) Not detected (NO T DETECTED) 06/29/21 09:20 Beta-(1,3)-D-Gluca n <31 pg/mL 06/30/21 04:10 B-(1,3)-D-Glucan I ntrp Negative 06/30/21 04:10 Misc Test Referenc e See comment 07/03/21 08:55 Impressions Chest/Abdomen X-ray 06/29/21 09:45 IMPRESSION: 1. Trace atelectasis or scar noted in the left mid lung and lung bases. 2. A double-J right ureteral stent is in place and shows the proximal J uncoiled but remains partially in the renal pelvis. The distal J is within the urinary bladder. 3. A paucity of bowel gas is noted with loops that are visualized appearing nondistended and nonobstructive. Chest CTA 07/01/21 08:56 IMPRESSION: Progression in the abnormalities previously seen in the chest on an outside CT scan. Most dramatically, the consolidation in the lower lobes. While there is atelectasis in the lower lobes, especially on the left for the most part these findings do not represent atelectasis, since there are air bronchograms, but represent lung parenchyma consolidation/alveolar filling. This could be inflammatory and/or hemorrhage. It has developed rather rapidly. The cystic-appearing lesions could represent central lobar emphysema with inflammatory change, inflammatory pneumatoceles, or less likely small lung abscesses. Chest X-Ray 07/04/21 06:00 IMPRESSION: Increased atelectasis in the right lower lobe. Abnormal chest otherwise relatively stable. Abdomen/Pelvis CT 07/04/21 12:09 IMPRESSION: Small bowel obstruction which appears to be secondary to recurrent tumor in the right lower quadrant as above. A&P Assessment and plan (1) Fungemia: Status: Acute (2) VRE bacteremia: Status: Acute (3) Multifocal pneumonia: Status: Acute (4) Extrinsic ureteral obstruction: (5) Ovarian cancer on right: Additional A&P Information 61F with ovarian mass, likely malignancy with ureteral obstrcution , recurrent SBO from mass [place] currently admitted for SBO, pneumonia. Found to have VRE fecium bacteremia and C. albicans fungemia during course of evaluation. Small posible abscesses on CT chest identified, cx with E.coli. Possiblility of aspiration not excluded. d/c zosyn, d/c daptomycin start Augmentin 875mg BID (E.coli on sputum cx, aspiration, clinical improvement) to complete total 2 weeks abx from bronchoscopy. Presumed septic seeding of lungs from VRE and/or True, cannot exclude this possibility start linezolid 600mg po BID , d/c daptomycin true sp identified as albicans, d/c caspofuncgin, switch to fluconazole po 400 mg daily source of bacteremia and fungemia may be port related vs GI translocation from SBO. Appreviate port removal given Candidemia. 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
[2021-07-10] MEDS: budesonide 0.5 mg/2 mL Neb INHALATION ×3 (07:47→19:40)
[2021-07-10] MEDS: amoxicillin-clav 875-125 mg Tablet 1 TAB PO ×2 (09:01→18:18)
[2021-07-10] MEDS: venlafaxine ER (24HR) 150 mg Capsule PO (09:01)
[2021-07-10] MEDS: folic acid 1 mg Tablet PO (09:01)
[2021-07-10] MEDS: fluconazole 100 mg Tablet 400 MG PO (09:01)
[2021-07-10] MEDS: polyethylene glycol 3350 Pkt 17 gm PO ×2 (09:01→18:18)
[2021-07-10] MEDS: levothyroxine 50 mcg Tablet PO (09:01)
[2021-07-10] MEDS: magnesium oxide 400 mg tablet PO ×2 (09:01→18:18)
[2021-07-10] MEDS: linezolid 600 mg Tablet PO ×2 (09:01→20:30)
[2021-07-10] MEDS: potassium chloride ER 20 mEq Tablet 40 MEQ PO (09:01)
[2021-07-10] MEDS: cyanocobalamin 1,000 mcg Tablet 500 MCG PO (09:01)
[2021-07-10] MEDS: predniSONE 10 mg Tablet 20 MG PO (09:02)
[2021-07-10] MEDS: docusate sodium 100 mg Capsule PO (09:02)
[2021-07-10] MEDS: amlodipine 5 mg Tablet 10 MG PO (09:02)
[2021-07-10] MEDS: pantoprazole 40 mg SDV IVP ×2 (09:02→20:30)
[2021-07-10] MEDS: heparin 5,000 unit/mL INJ 1 mL 5000 UNIT SUBCUT ×2 (09:02→20:30)
--- NOTE | 2021-07-10 13:37 | P.PN_ITS ---
Subjective Subjective: Interval history: No acute events overnight. Patient has remained hemodynamically stable and afebrile. Currently on 4 L saturating 91%. Able to tolerate diet well. Denies any nausea, vomiting, headache. Vitals/I&O/Wt Last Vital Signs Temp 97.6 F 07/10/21 12:00 Pulse 90 07/10/21 12:00 Resp 18 07/10/21 12:00 BP 157/83 07/10/21 12:00 Pulse Ox 90 07/10/21 12:00 07/09/21 07/10/21 07/10/21 22:59 06:59 14:59 Intake Total 640 / 1710 250 / 1960 50 / 50 Output Total 500 / 2700 1000 / 3700 Balance 140 / -990 -750 / -1740 50 / 50 Weight last 48 hrs Weight 59.874 kg Weight 60.056 kg Physical Exam Narrative: EXAM NARRATIVE: General: No acute distress, AO x3, on 4 L nasal cannula, warm peripheries HEENT: PERRLA, pupils bilaterally equal and reactive Chest: Bilateral crackles present all over the lung shel[place] up to mid zone bilaterally, anterior more than posterior, decreased air entry bilaterally lower zone CVS: S1-S2 regular, no murmurs, tachycardia, no gallops, no rubs Abdomen: Soft, nontender, no organomegaly, bowel sounds sluggish Neuro: No focal deficits, no facial deformity, AO x3, power 5/5 in all limbs Urinary Catheter Management^: Joseph: Cath Placed During This Visit: yes Reason for Continuing Indwelling Catheter: Accurate Measurement of Urinary Output in Critically Ill Patients Urinary Catheter Date of Insertion: 06/29/21 Urinary Catheter Time of Insertion: 09:00 Data : 07/10/21 03:10 07/09/21 05:23 Micro: Microbiology 07/09/21 15:38 Blood Culture - Preliminary Blood SPECIMEN COLLECTED 07/09/21 15:32 Blood Culture - Preliminary Blood SPECIMEN COLLECTED 07/07/21 07:10 Catheter Tip Culture - Final Other Source 07/07/21 07:10 Catheter Tip Culture - Final Other Source A&P Assessment and plan (1) Fungemia: Status: Acute (2) VRE bacteremia: Status: Acute (3) Multifocal pneumonia: Status: Acute (4) Extrinsic ureteral obstruction: Status: Chronic (5) Ovarian cancer on right: Continue follow-up with Dr. Lynne. Progression noted on CT scan. Discussed also with her oncologist, as well as with her and her . Given progression with the current medication despite increased dose, as well as the risk associated for respiratory infection with Lynparza, likely will not continue on this medication. They understand there will be a difficult discussion with oncologist with regards to what further treatment options might still be available. Continue follow-up with Dr. Lynne. Progression noted on CT scan. Discussed also with her oncologist, as well as with her and her . Given progression with the current medication despite increased dose, as well as the risk associated for respiratory infection with Lynparza, likely will not continue on this me dication. They understand there will be a difficult discussion with oncologist with regards to what further treatment options might still be available. Status: Acute (6) Hypoxia: Status: Acute (7) Small bowel obstruction: As per discussion with patient and , no beds at [facility]. Given she has shown some improvement, abdominal discomfort resolved, no nausea, not vomiting. Subsequently may again seek evaluation with Dr. Rivera depending on her condition on inpatient or outpatient basis for consideration of debulking, adhesiolysis given recurrent episodes of bowel obstruction, vomiting preadmission resulting in likely contribution to hypoxia from aspiration pneumonitis, pneumonia. Risk of malnutrition, dehydration going forward. Compli cated also by recurrent opioid induced ileus. CT abdomen pelvis noted, discussed with patient and . Due to involvement of ureter, iliac artery debulking and adhesiolysis not possible currently at this facility as per discussion with surgery over the weekend. So far no vomiting. We had discussed that she may get transient relief with NGT placement, however, she has declined NGT. Currently on bowel rest, sips and ice chips. In case continue to improve we discussed could trial some liquid diet, although in the long-term would anticipate bowel obstruction to continue to get worse, possibly leading to her demise if untreated due to either obstruction, or other complications like vomiting, aspiration, worsening hypoxia with pneumonitis and/or pneumonia. They understand this. Very prone to opioid induced ileus. Relistor. Continue standing bowel regimen. Status: Acute (8) S/P ureteral stent placement: Status: Chronic (9) COPD (chronic obstructive pulmonary disease): Status: Acute (10) Renal failure: Resolved. Hold additional Lasix, avoid hypotension. History of right ureteral stent placement for obstruction secondary to recurrence of cancer. Status: Acute (11) Malnutrition: Status: Acute Additional A&P Information Sepsis secondary to VRE bacteremia/fungemia: Possible port infection?removed July 07. Repeat blood cultures every other day till negative for fungemia. Repeat blood cultures so far negative. Appreciate ID recommendations. Plan to do Augmentin till July 16 which is 2 weeks from bronchoscopy. Stop daptomycin because of poor penetration to lungs. Start on oral linezolid 600 mg twice daily. Yeast identified as Lauryn albicans. Antifungal switched over to fluconazole 400 mg daily. Plan to continue linezolid and fluconazole for at least [address] chest would be done for further assessment of continuation of therapy. Hypoxia secondary to multifocal pneumonia/possible septic emboli/possible lung abscesses: Post bronchoscopy. Bronchoscopy cultures growing pansensitive E. coli. Continue with prednisone 20 mg daily for 3 days. DuoNebs every 4 hours, budesonide twice daily. Oxygen supplementation keeping saturation over 88%. Echocardiogram done earlier in the admission shows an EF 55 to 60% with possibly normal LV systolic functions in size. Patient euvolemic continue to hold on IV Lasix for now. Hypertension: Goal blood pressure less than 140/90 mmHg. Blood pressure improving. Stop home dose of enalapril given renal failure on admission along with right ureteral obstruction for which stent was placed. Continue with amlodipine 10 mg oral daily. Start on metoprolol 25 mg twice daily. Hypernatremia: Resolved. Sodium 135. Trial of CLD. Replace phosphorus. Continue with oral potassium and magnesium supplementations . CODE STATUS: Discussed with patient in detail again. She states she would like to remain full code. Protonix for PUD prophylaxis. Heparin 5000 every 12 for DVT prophylaxis. Regular diet with aggressive bowel regimen. PT/OT evaluation. Attestations Medical Necessity Statement*: Patient for management of sepsis secondary VRE bacteremia, candidemia in setting of port infection, ovarian cancer Time Spent in Patient Care: Greater than 35 minutes (>than 50% of time spent in counselling and/or direct pt care on unit) . 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
--- NOTE | 2021-07-10 14:53 | PC.SOCIAL ---
IMM UPdated Page 2 IMM updated, reviewed and placed in chart. Initialed, Timed and dated.
[2021-07-10] MEDS: trazodone 150 mg Tablet PO (20:30)
[2021-07-10] MEDS: metoprolol tartrate 25 mg Tablet PO (20:30)
[2021-07-11] VITALS (11 sets, daily range): BP systolic 118–152; BP diastolic 67–81; PULSE 67–91; RESP 14–18; TEMP 36.4–36.7; O2SAT 91–99
[2021-07-11] MEDS: ipratropium-albuterol 3 mL Neb INHALATION ×4 (03:48→11:43)
[2021-07-11 05:34] LABS: Basophils % 0.6 %; Eosinophils % 1.1 %; Hematocrit 32.9 % (37.0-47.0); Hemoglobin 10.7 g/dL (11.5-15.3); Lymphocytes # 0.7 10^3/uL (0.8-4.8); Lymphocytes % 20.2 %; Mean Corpuscular HGB Conc 32.5 g/dL (30.0-36.0); Mean Corpuscular Hemoglobin 34.2 pg (28.0-34.0); Mean Corpuscular Volume 105.1 fl (81-99); Mean Platelet Volume 10.1 fL (7.4-10.4); Monocytes # 0.4 10^3/uL (0.2-0.9); Monocytes % 10.1 %; Neutrophils # 2.26 10^3/uL (1.8-7.7); Neutrophils % 63.5 %; Nucleated Red Blood Cells % 0.6 %; Platelet Count 170 10^3/cmm (130-400); Red Blood Count 3.13 10^6/uL (4.1-5.3); Red Cell Distribution Width 15.4 % (12.1-15.1); White Blood Count 3.6 10^3/uL (4.0-10.0)
[2021-07-11 05:58] LABS: Alanine Aminotransferase 28 U/L (0-33); Albumin Level 2.8 g/dL (3.5-5.2); Alkaline Phosphatase 58 IU/L (35-105); Anion Gap 10.8 (5-19); Aspartate Amino Transferase 18 U/L (0-32); Blood Urea Nitrogen 7 mg/dL (8-23); Calcium 8.8 mg/dL (8.5-10.5); Carbon Dioxide 28 mmol/L (22-29); Chloride 101 mmol/L (98-107); Globulin 2.7 g/dL (1.3-4.6); Glomerular Filtration Rate 124.6 mL/min (90-130); Glucose 76 mg/dL (65-115); Osmolality Calculated 279 mOsm/kg (285-295); Potassium 3.8 mmol/L (3.5-5.1); Sodium 136 mmol/L (136-145); Total Bilirubin 0.5 mg/dL (0.15-1.2); Total Protein 5.5 g/dL (6.6-8.7)
[2021-07-11] MEDS: budesonide 0.5 mg/2 mL Neb INHALATION (08:08)
[2021-07-11] MEDS: pantoprazole 40 mg SDV IVP (08:23)
[2021-07-11] MEDS: linezolid 600 mg Tablet PO (08:55)
[2021-07-11] MEDS: heparin 5,000 unit/mL INJ 1 mL 5000 UNIT SUBCUT (08:55)
[2021-07-11] MEDS: predniSONE 10 mg Tablet 20 MG PO (08:56)
[2021-07-11] MEDS: magnesium oxide 400 mg tablet PO (08:56)
[2021-07-11] MEDS: folic acid 1 mg Tablet PO (08:56)
[2021-07-11] MEDS: amoxicillin-clav 875-125 mg Tablet 1 TAB PO (08:56)
[2021-07-11] MEDS: docusate sodium 100 mg Capsule PO (08:56)
[2021-07-11] MEDS: potassium chloride ER 20 mEq Tablet 40 MEQ PO (08:56)
[2021-07-11] MEDS: venlafaxine ER (24HR) 150 mg Capsule PO (08:57)
[2021-07-11] MEDS: fluconazole 100 mg Tablet 400 MG PO (08:57)
[2021-07-11] MEDS: amlodipine 5 mg Tablet 10 MG PO (08:57)
[2021-07-11] MEDS: levothyroxine 50 mcg Tablet PO (08:57)
[2021-07-11] MEDS: polyethylene glycol 3350 Pkt 17 gm PO (08:57)
[2021-07-11] MEDS: metoprolol tartrate 25 mg Tablet PO (09:05)
[2021-07-11] MEDS: HYDROmorphone 1 mg/mL INJ 1 mL IVP ×2 (09:05→13:22)
--- NOTE | 2021-07-11 12:37 | PM.DCS ---
Discharge Providers Date of Admission: 06/29/21 06:51 Date of Discharge: July 11, 2021 Attending Provider at Admission: Lillian Moreno MD Attending Provider at Discharge: Chad Canchola MD Consults: Pulmonology: Dr. Bonilla Surgery: Dr. Roland. ID: Dr. Moreno Primary Care Provider: Ravi Lynne MD Diagnoses at Discharge Discharge Diagnosis (1) Fungemia: Status: Acute (2) VRE bacteremia: Status: Acute (3) Multifocal pneumonia: Status: Acute (4) Extrinsic ureteral obstruction: Status: Chronic (5) Ovarian cancer on right: Status: Acute (6) Hypoxia: Status: Acute (7) Small bowel obstruction: Status: Acute (8) S/P ureteral stent placement: Status: Chronic (9) COPD (chronic obstructive pulmonary disease): Status: Acute (10) Renal failure: Status: Acute (11) Malnutrition: Status: Acute (12) History of DVT (deep vein thrombosis): Status: Acute (13) Chronic anticoagulation: Status: Acute Reason for Visit Reason for Visit: PARTIAL SBO Hospital Course Hospital Course Nisreen Carrasco is a 61 year old female with past medical history of hypertension, hyperlipidemia, GERD, COPD, chronic anxiety/depression, recurrence of ovarian cancer, DVT on chronic anticoagulation with Xarelto multiple abdominal surgery, abdominal radiation, multiple episodes of small bowel obstruction, right renal atrophy because of ureteral obstruction and hydronephrosis requiring right ureteral stent, recurrent ovarian cancer was transferred over from outside facility as a direct admit where she had presented last night with complaints of difficulty in breathing which has been going on for last 4 to 5 days associated with nausea, abdominal pain, decreased appetite and oral intake. Patient is also complaining of expectoration without any foul smell, bleeding, hemoptysis, hematemesis. Patient states she has not had a bowel movement illness 4 to 5 days, denies passing any gas. Complaining of occasional episode of burning by micturition. Patient denies any fever, states is vaccinated for COVID-19 with last dose in January of this year. Patient also underwent ureteral stent placement in January of this year and was due to be changed this month. As per the patient she has been having decreased urine output for last 4 days with urine being highly concentrated last night. Patient states she almost thought she was bleeding in her urine. During the initial work-up, the patient was found to have bilateral pulmonary infiltrate. She was treated with broad-spectrum antibiotic. On admission patient had acute kidney injury secondary dehydration which was treated with gentle IV hydration. CTA was done which revealed bilateral centrilobular emphysema along with cystic lesion in the right middle lobe which was not there on a recent CT scan done on June 06. During hospitalization patient required high oxygen supplementation going as high as 75% on heated high flow so was transferred to ICU for closer monitoring. Pulmonology was consulted and patient underwent bronchoscopy for concern for pulmonary abscess versus septic emboli. Patient underwent bronchoscopy on July 02. [facility] cultures were consistent with pansensitive E. coli. Patient did have episode of vomiting and possible aspiration prior to admission. It is possible patient had pulmonary abscess secondary to aspiration pneumonia. Her hospitalization was complicated by her developing VRE bacteremia and candidemia. She was started on culture directed antibiotics and antifungals. Repeat blood cultures from July 07 and so far are negative. Echocardiogram was done which showed an EF 55 to 60%, normal RV systolic and diastolic function. Because of concern for port infection and ongoing fungemia surgery was consulted and port was explanted on July 06. Patient's antibiotic and antifungals were changed as per the sensitivities. Patient's oxygen supplementation gradually came down to her baseline of 4 L oxygen supplementation for last 3 days. Patient also had episode of small bowel obstruction during hospitalization which was treated conservatively and surgery was consulted. CT abdomen was done which showed progression of her ovarian tumor. As per surgery recommendations patient will require extensive debulking, additional lysis. Gradually patient has been tolerating her diet well and is currently on regular diet for last 4 days with aggressive bowel regimen. Patient is advised to follow-up with her gastric surgeon as an outpatient. Patient's care was also discussed with her oncologist. Her outpatient chemotherapy Lynparza was stopped due to progression of the cancer even though she was on a higher dose of the medication along with high association of respiratory infection with the medication. Given multiple medical problems along with prolonged hospitalization placement to SNF was tried which was denied as patient has been doing well with physical therapy and was advised home exercise program. Patient is been discharged in hemodynamically stable condition with advised to continue Augmentin till June 12, continue oral fluconazole and oral linezolid for 2 more weeks at least till July 24. Patient is to follow-up with ID clinic in 2 weeks but prior to that she is to have a CT chest. Depending on the results of CT chest it would be decided for how long patient would need the antifungal and antibacterial therapy. Physical Exam Narrative: EXAM NARRATIVE: General: No acute distress, AO x3, on 4 L nasal cannula, warm peripheries HEENT: PERRLA, pupils bilaterally equal and reactive Chest: Bilateral crackles present all over the lung shelley up to mid zone bilaterally, anterior more than posterior, decreased air entry bilaterally lower zone CVS: S1-S2 regular, no murmurs, tachycardia, no gallops, no rubs Abdomen: Soft, nontender, no organomegaly, bowel sounds sluggish Neuro: No focal deficits, no facial deformity, AO x3, power 5/5 in all limbs Urinary Catheter Management^: Joseph: Cath Placed During This Visit: yes Reason for Continuing Indwelling Catheter: Acute Urinary Retention or Obstruction Urinary Catheter Date of Insertion: 06/29/21 Urinary Catheter Time of Insertion: 09:00 Discharge Data Data Completed and Pending: Completed Studies During Hospitalization Category Date Time Status CT abdomen pelvis w con* [id number] Rout ine Cat Scan 07/04/21 12:[address] angio chest PE protcl [id number] Rout ine Cat Scan 07/01/21 08:56 Completed XR acute abdomen series [id number] Routi ne Exams 06/29/21 09:45 Completed XR chest 1V juan ble 44153 Q48H Exams 06/30/21 06:00 Completed XR chest 1V juan ble 63507 Q48H Exams 07/02/21 06:00 Completed XR chest 1V juan ble [id number] Q48H Exams 07/04/21 06:00 Completed XR chest 1V juan ble [id number] Routine Exams 07/01/21 06:00 Completed XR chest 1V juan ble [id number] Stat Exams 06/30/21 18:54 Completed CV. echo complete * [id number] Routine Ultrasound 07/03/21 06:00 Completed Pending at discharge Category Date Time Status Blood Culture Sta t Lab 07/07/21 10:24 Results Blood Culture Sta t Lab 07/09/21 15:38 Results Body Fluid Cultur e Routine Lab 07/06/21 16:01 Uncollected Fungal Culture no t HR/SK/BL Routine Lab 07/02/21 12:05 Results Fungal Culture no t HR/SK/BL Routine Lab 07/07/21 12:26 Uncollected Miscellaneous Lesvia t Routine Lab 07/07/21 10:20 Received Mycobacteria, Cul ture w/Fluor Routi ne Lab 07/02/21 12:05 Results Labs from last 24 hours 07/11/21 07/11/21 05:24 05:24 WBC 3.6 L RBC 3.13 L Hgb 10.7 L Hct 32.9 L MCV 105.1 H MCH 34.2 H MCHC 32.5 RDW 15.4 H Plt Count 170 MPV 10.1 Neut % (Auto) 63.5 Lymph % (Auto) 20.2 [place] % (Auto) 10.1 Eos % (Auto) 1.1 Baso % (Auto) 0.6 Neut # (Auto) 2.26 Lymph # (Auto) 0.7 L [place] # (Auto) 0.4 Eos # (Auto) 0.0 Baso # (Auto) 0.0 Nucleated RBC % (a uto) 0.6 Nucleated RBCs # 0.0 Sodium 136 Potassium 3.8 Chloride 101 Carbon Dioxide 28 Anion Gap 10.8 BUN 7 L Creatinine 0.5 GFR Calculation 124.6 Glucose 76 Calculated Osmolal ity 279 L Calcium 8.8 Total Bilirubin 0.5 AST 18 ALT 28 Alkaline Phosphata se 58 Total Protein 5.5 L Albumin 2.8 L Globulin 2.7 Addt'l Data from Hospital Stay: Laboratory Results WBC 3.6 10^3/uL (4.0- 10.0) L 07/11/21 05:24 RBC 3.13 10^6/uL (4.1 -5.3) L 07/11/21 05:24 Hgb 10.7 g/dL (11.5-1 5.3) L 07/11/21 05:24 Hct 32.9 % (37.0-47.0 ) L 07/11/21 05:24 MCV 105.1 fl (81-99) H 07/11/21 05:24 MCH 34.2 pg (28.0-34. 0) H 07/11/21 05:24 MCHC 32.5 g/dL (30.0-3 6.0) 07/11/21 05:24 RDW 15.4 % (12.1-15.1 ) H 07/11/21 05:24 Plt Count 170 10^3/cmm (130 -400) 07/11/21 05:24 MPV 10.1 fL (7.4-10.4 ) 07/11/21 05:24 Neut % (Auto) 63.5 % 07/11/21 05:24 Lymph % (Auto) 20.2 % 07/11/21 05:24 [place] % (Auto) 10.1 % 07/11/21 05:24 Eos % (Auto) 1.1 % 07/11/21 05:24 Baso % (Auto) 0.6 % 07/11/21 05:24 Reticulocyte % (Au to) 1.2 % (0.5-2.0) 06/29/21 10:02 Neut # (Auto) 2.26 10^3/uL (1.8 -7.7) 07/11/21 05:24 Lymph # (Auto) 0.7 10^3/uL (0.8- 4.8) L 07/11/21 05:24 [place] # (Auto) 0.4 10^3/uL (0.2- 0.9) 07/11/21 05:24 Eos # (Auto) 0.0 10^3/uL (0.0- 0.8) 07/11/21 05:24 Baso # (Auto) 0.0 10^3/uL (0.0- 0.1) 07/11/21 05:24 Nucleated RBC % (a uto) 0.6 % 07/11/21 05:24 Total Counted 100 (0-100) 07/01/21 05:20 Atypical Lymphs % 1.0 % (0-5) 07/01/21 05:20 Absolute Neutrophi ls 6.7 10^3/cmm (1.4 -6.5) H 07/01/21 05:20 Segmented Neutroph ils 66 % 07/01/21 05:20 Abs Segm Neuts (Ma n) 5.3 10/cmm (1.6-7 .1) 07/01/21 05:20 Band Neutrophils 18.0 % 07/01/21 05:20 Abs Band Neuts (Ma n) 1.4 10^3/cmm (0.0 -1.2) H 07/01/21 05:20 Absolute Lymphocyt es 0.6 10^3/cmm (1.2 -3.4) L 07/01/21 05:20 Lymphocytes (Manua l) 6 % 07/01/21 05:20 Monocytes (Manual) 2.0 % 07/01/21 05:20 Absolute Monocytes 0.2 10^3/cmm (0.1 -0.6) 07/01/21 05:20 Eosinophils (Manua l) 0 % 07/01/21 05:20 Absolute Eosinophi ls 0.0 10^3/cmm (0.0 -0.7) 07/01/21 05:20 Basophils (Manual) 0.0 % 07/01/21 05:20 Absolute Basophils 0.0 10^3/cmm (0.0 -0.2) 07/01/21 05:20 Metamyelocytes 7.0 % 07/01/21 05:20 Nucleated RBCs # 0.0 /100WBC 07/11/21 05:24 Platelet Estimate Decreased (Carmelina l) L 07/01/21 05:20 D-Dimer 4.10 ug/mIFEU (0- 0.59) H 06/29/21 10:02 Specimen Type Arterial 06/29/21 11:45 Sample Site Radial, left 06/29/21 11:45 ABG pH 7.45 (7.35-7.45) 06/29/21 11:45 ABG pCO2 38.9 mmHg (35-45) 06/29/21 11:45 ABG pO2 66.1 mmHg (80.0-1 00.0) L 06/29/21 11:45 ABG HCO3 26.9 mmol/L (22-2 6) H 06/29/21 11:45 ABG O2 Saturation 91.2 06/29/21 09:10 ABG Base Excess 2.7 mmol/L (-2.0- 2.0) H 06/29/21 11:45 Caesar Test Pos 06/29/21 11:45 A-a O2 Gradient 77.6 mmHg (5-10) H 06/29/21 09:10 Hematocrit 40.6 % (37-47) 06/29/21 11:45 Hgb O2 Saturation 89.1 % (95-100) L 06/29/21 09:10 Carboxyhemoglobin 1.5 %THgb (0.4-20 .1) 06/29/21 09:10 Methemoglobin 0.8 % (0.4-1.5) 06/29/21 09:10 Total Hemoglobin 12.3 g/dL (12-16) 06/29/21 09:10 Sodium 132.0 mmol/L (131 -143) 06/29/21 09:10 Potassium 4.4 mmol/L (3.5-5 .0) 06/29/21 09:10 Glucose 84.0 mg/dL (70-11 5) 06/29/21 09:10 Ionized Calcium 1.2 mmol/L (1.1-1 .4) 06/29/21 09:10 O2 Delivery Device Bipap 06/29/21 11:45 FiO2 75.0 % 06/29/21 11:45 Rn Teacher ID Amh 06/29/21 11:45 Sodium 136 mmol/L (136-1 45) 07/11/21 05:24 Potassium 3.8 mmol/L (3.5-5 .1) 07/11/21 05:24 Chloride 101 mmol/L (98-10 7) 07/11/21 05:24 Carbon Dioxide 28 mmol/L (22-29) 07/11/21 05:24 Anion Gap 10.8 (5-19) 07/11/21 05:24 BUN 7 mg/dL (8-23) L 07/11/21 05:24 Creatinine 0.5 mg/dL (0.5-0. 9) 07/11/21 05:24 GFR Calculation 124.6 mL/min (90- 130) 07/11/21 05:24 Glucose 76 mg/dL (65-115) 07/11/21 05:24 POC Glucose 243 mg/dL (70-110 ) H 07/03/21 11:59 Estimat Average Gl ucose 88 06/30/21 04:10 Hemoglobin A1c 4.7 % (4.0-6.0) 06/30/21 04:10 Calculated Osmolal ity 279 mOsm/kg (285- 295) L 07/11/21 05:24 Lactic Acid 1.8 mmol/L (0.5-2 .2) 06/29/21 10:02 Calcium 8.8 mg/dL (8.5-10 .5) 07/11/21 05:24 Phosphorus 2.3 mg/dL (2.5-4. 5) L 07/10/21 03:10 Magnesium 1.9 mg/dL (1.7-2. 3) 07/10/21 03:10 Iron 9 ug/dL (37-145) L 06/29/21 10:02 TIBC 166 mcg/dl 06/29/21 10:02 % Saturation 5.4 % (20-50) L 06/29/21 10:02 Unsat Iron Binding 157 ug/dL (112-34 7) 06/29/21 10:02 Total Bilirubin 0.5 mg/dL (0.15-1 .2) 07/11/21 05:24 AST 18 U/L (0-32) 07/11/21 05:24 ALT 28 U/L (0-33) 07/11/21 05:24 Alkaline Phosphata se 58 IU/L (35-105) 07/11/21 05:24 NT-Pro-B Natriuret Pep 3144 pg/mL (0-125 ) H 06/29/21 10:02 Total Protein 5.5 g/dL (6.6-8.7 ) L 07/11/21 05:24 Albumin 2.8 g/dL (3.5-5.2 ) L 07/11/21 05:24 Globulin 2.7 g/dL (1.3-4.6 ) 07/11/21 05:24 Triglycerides 139 mg/dL (0-150) 06/30/21 04:10 Cholesterol 101 mg/dL (0-200) 06/30/21 04:10 LDL Cholesterol, C alc 29 mg/dL (50-129) L 06/30/21 04:10 Total VLDL Cholest nate 28 mg/dL (0-30) 06/30/21 04:10 HDL Cholesterol 44 mg/dL (60-100) L 06/30/21 04:10 Cholesterol/HDL Ra orquidea 2.30 mg/dL (0.0-4 .40) 06/30/21 04:10 Vitamin B12 1921 pg/mL (232-1 245) H 07/08/21 05:38 Folate 11.9 ng/mL (4.8-3 7.3) 07/08/21 05:38 Procalcitonin > 100.00 ng/mL (0 -0.5) H 06/29/21 10:02 TSH 0.57 uIU/mL (0.27 -4.20) 06/29/21 10:02 Random Cortisol 90.71 ug/dL (2.47 -19.5) H 06/30/21 04:10 Urine Color Miriam (Yellow) 06/29/21 09:41 Urine Appearance Cloudy (CLEAR) 06/29/21 09:41 Urine pH 5 (5-7) 06/29/21 09:41 Ur Specific Gravit y 1.015 (1.005-1.0 30) 06/29/21 09:41 Urine Protein 1+ (Negative) H 06/29/21 09:41 Urine Glucose (UA) Norm (Normal) 06/29/21 09:41 Urine Ketones Negative (Negati ve) 06/29/21 09:41 Urine Blood 3+ (Negative) H 06/29/21 09:41 Urine Nitrate Negative (Negati ve) 06/29/21 09:41 Urine Bilirubin 1+ (Negative) H 06/29/21 09:41 Urine Urobilinogen 1 mg/dL (Negative ) H 06/29/21 09:41 Ur Leukocyte Genesis ase Negative (Negati ve) 06/29/21 09:41 Urine RBC Too numerous to c nt /hpf (0-2) H 06/29/21 09:41 Urine WBC 5-10 /hpf (0-5) H 06/29/21 09:41 Ur Eosinophil Smea r 0 (0-0) 06/29/21 16:30 Ur Squamous Epith Cells 0-4 /hpf (0-5) H 06/29/21 09:41 Amorphous Sediment Not Reportable 06/29/21 09:41 Urine Bacteria 2+ /hpf (NONE) H 06/29/21 09:41 Coarse Granular Ca sts 0-4 /lpf H 06/29/21 09:41 Urine Eosinophils No eosinophils se en 06/29/21 16:30 Ur Random Sodium < 10 mmol/L 06/29/21 09:41 Ur Random Potassiu m 60 mmol/L 06/29/21 09:41 Ur Random Chloride < 10 mmol/L 06/29/21 09:41 Urine Creatinine 111 mg/dL (28-217 ) 06/29/21 09:41 RSV Nasal Swab Cancelled 07/02/21 12:05 RSV Nasal Swab Int Cntl Cancelled 07/02/21 12:05 Vancomycin Trough 12.4 ug/mL (10-15 ) 07/06/21 03:02 Adenovirus (PCR) Cancelled 07/02/21 12:05 Human Metapneumovi r PCR Cancelled 07/02/21 12:05 Influenza A (RT-PC R) Cancelled 07/02/21 12:05 Influenza A (H1) P CR Cancelled 07/02/21 12:05 Influenza A (H3) P CR Cancelled 07/02/21 12:05 Influenza B (RT-PC R) Cancelled 07/02/21 12:05 Parainfluenzae Typ e 1 Cancelled 07/02/21 12:05 Parainfluenzae Typ e 2 Cancelled 07/02/21 12:05 Parainfluenzae Typ e 3 Cancelled 07/02/21 12:05 Pneumocystis Sourc e 07/02/21 12:05 Pneumocyst jirovec i PCR Not detected 07/02/21 12:05 Aspergillus Ag (EI A) Not detected 07/02/21 12:05 A. galactomannan A g Idx <0.50 07/02/21 12:05 RSV Ab Comment Cancelled 07/02/21 12:05 Rhinovirus (PCR) Cancelled 07/02/21 12:05 SARS-CoV-2 RNA (RT -PCR) Not detected (NO T DETECTED) 06/29/21 09:20 Beta-(1,3)-D-Gluca n <31 pg/mL 06/30/21 04:10 B-(1,3)-D-Glucan I ntrp Negative 06/30/21 04:10 Misc Test Referenc e See comment 07/03/21 08:55 Impressions Chest/Abdomen X-ray 06/29/21 09:45 IMPRESSION: 1. Trace atelectasis or scar noted in the left mid lung and lung bases. 2. A double-J right ureteral stent is in place and shows the proximal J uncoiled but remains partially in the renal pelvis. The distal J is within the urinary bladder. 3. A paucity of bowel gas is noted with loops that are visualized appearing nondistended and nonobstructive. Chest CTA 07/01/21 08:56 IMPRESSION: Progression in the abnormalities previously seen in the chest on an outside CT scan. Most dramatically, the consolidation in the lower lobes. While there is atelectasis in the lower lobes, especially on the left for the most part these findings do not represent atelectasis, since there are air bronchograms, but represent lung parenchyma consolidation/alveolar filling. This could be inflammatory and/or hemorrhage. It has developed rather rapidly. The cystic-appearing lesions could represent central lobar emphysema with inflammatory change, inflammatory pneumatoceles, or less likely small lung abscesses. Chest X-Ray 07/04/21 06:00 IMPRESSION: Increased atelectasis in the right lower lobe. Abnormal chest otherwise relatively stable. Abdomen/Pelvis CT 07/04/21 12:09 IMPRESSION: Small bowel obstruction which appears to be secondary to recurrent tumor in the right lower quadrant as above. Microbiology 07/09/21 15:38 Blood Blood Culture - Preliminary NEGATIVE TO DATE 07/09/21 15:32 Blood Blood Culture - Preliminary NEGATIVE TO DATE 07/07/21 07:10 Other Source Catheter Tip Culture - Final 07/07/21 07:10 Other Source Catheter Tip Culture - Final 07/07/21 10:24 Blood Blood Culture - Preliminary NEGATIVE TO DATE 07/07/21 10:20 Blood Blood Culture - Preliminary NEGATIVE TO DATE 07/03/21 08:57 Blood Blood Culture - Final Enterococcus faecium vre Yeast 07/03/21 08:55 Blood Blood Culture - Final Enterococcus faecium vre Yeast 07/02/21 12:05 Sputum - Endotracheal Wash Mycobacterial Smear - Preliminary 06/29/21 09:58 Blood Blood Culture - Final NO GROWTH AFTER 5 DAYS 06/29/21 10:02 Blood Blood Culture - Final NO GROWTH AFTER 5 DAYS 07/02/21 12:05 Lung Right Upper Lobe Gram Stain - Final 07/02/21 12:05 Lung Right Upper Lobe Bronchoalveolar Lavage Culture - Final Escherichia coli 07/02/21 08:33 Sputum - Expectorated Sputum Gram Stain - Final 07/02/21 08:33 Sputum - Expectorated Sputum Sputum Culture - Final Escherichia coli 06/29/21 09:41 Urine Catheterized Urine Culture - Final 06/29/21 09:44 Nose MRSA Culture - Final 06/29/21 09:41 Urine Catheterized Legionella Urinary Antigen - Final 06/29/21 09:41 Urine Kidney Bacterial Antigens - Final Vitals: Last Vital Signs Temp 97.7 F 07/11/21 11:27 Pulse 72 07/11/21 11:43 Resp 18 07/11/21 11:43 BP 135/80 07/11/21 11:27 Pulse Ox 92 07/11/21 11:43 Discharge Plan Discharge Patient Disposition: Home Health Service Condition: Stable Prescriptions: New fluconazole 100 mg Tablet 400 mg PO DAILY 21 Days Qty: 84 RF: 0 linezolid 600 mg Tablet 600 mg PO Q12H 21 Days Qty: 42 RF: 0 amoxicillin-pot clavulanate 875-125 mg Tablet 1 tab PO BID 3 Days Qty: 6 RF: 0 metoprolol tartrate 25 mg Tablet 25 mg PO BID@0900,2100 30 Days Qty: 60 RF: 0 Powderlax 17 gram powder in packet 17 g PO BID 30 Days Qty: 100 RF: 0 prednisone 10 mg Tablet 20 mg PO DAILY 2 Days Qty: 4 RF: 0 Continued esomeprazole magnesium [Nexium] 40 mg capsule,delayed release(DR/EC) 40 mg PO BID RF: 0 oxycodone 20 mg tablet 20 mg PO Q6H PRN (Reason: Pain) RF: 0 venlafaxine [Effexor XR] 150 mg capsule,extended release 24hr 150 mg PO DAILY RF: 0 levothyroxine [Synthroid] 50 mcg tablet 50 mcg PO DAILY RF: 0 albuterol sulfate 90 mcg/actuation aerosol powdr breath activated 2 inh INHALATION Q6H PRN (Reason: Exercise Induced Bronchospasm) RF: 0 guaifenesin [Mucinex] 600 mg tablet extended release 12hr 600 mg PO Q12H PRN (Reason: Congestion) RF: 0 Xarelto 20 mg tablet 20 mg PO DAILY RF: 0 Hold Instructions: Resume on 03/14/21. Resume normal dose on 03/14/2021 biotin 1,000 mcg tablet,chewable 1,000 mcg PO DAILY RF: 0 magnesium oxide 500 mg capsule 500 mg PO DAILY RF: 0 potassium gluconate 595 mg (99 mg) tablet 595 mg PO DAILY RF: 0 pregabalin [Lyrica] 150 mg capsule 150 mg PO TID RF: 0 trazodone 150 mg Tablet 150 mg PO BEDTIME RF: 0 fentanyl 100 mcg/hr patch 72 hour 2 patch topical Q72H RF: 0 Changed amlodipine 5 mg tablet 10 mg PO DAILY 30 Days Qty: 60 RF: 0 Discontinued enalapril maleate 10 mg tablet 10 mg PO BID RF: 0 carisoprodol 350 mg tablet 350 mg PO TID RF: 0 Discharge Orders: Discharge Order (Routine); Ordered 07/11/21 Ordered By: Chad Canchola Other Ambulatory Orders: Complete Blood Count w/Auto (WEEKLY) Timeframe: 20210718 Location: Determined by Patient Ordered By: Chad Canchola Complete Blood Count w/Auto (WEEKLY) Timeframe: 20210719 Location: Determined by Patient Ordered By: Chad Canchola Complete Blood Count w/Auto (WEEKLY) Timeframe: 20210720 Location: Determined by Patient Ordered By: Chad Canchola CT chest wo con [id number] (Routine) Timeframe: 20210724 Facility: [facility] - Location: Radiology [facility] Ordered By: Chad Canchola Comprehensive Metabolic Panel (WEEKLY) Timeframe: 20210718 Facility: [facility] - Location: Lab - Main Lab Ordered By: Chad Canchola Comprehensive Metabolic Panel (WEEKLY) Timeframe: 20210719 Facility: [facility] - Location: Lab - Main Lab Ordered By: Chad Canchola Comprehensive Metabolic Panel (WEEKLY) Timeframe: 20210720 Facility: [facility] - Location: Lab - Main Lab Ordered By: Chad Canchola DME: Commode (Order) Location: None Selected Ordered By: Chad Canchola DME: Shower Chair (Order) Location: None Selected Ordered By: Chad Canchola DME: Walker (Order) Location: None Selected Ordered By: Chad Canchola DME: Wheelchair (Order) Location: None Selected Ordered By: Chad Canchola Referrals: Jake Cooper MD [Physician] - 7-10 days Wali Roland MD [Physician] - None Lillian Moreno MD [Hospitalist] - 07/29/21 Ravi Lynne MD [Primary Care Provider] - 7-10 days Discharge Diet: Usual diet and As Directed Discharge Activity: Resume usual activity Patient Instructions: Metoprolol (By mouth), Prednisone (By mouth), Amoxicillin/Clavulanate Potassium (By mouth), Fluconazole (By mouth), Linezolid (By mouth), Opioid Safety Activity Restrictions/Additional Instructions: You will be on antibiotics linezolid twice daily 3 weeks, fluconazole 400 mg once daily for next 3 weeks. Medications to be stopped only after you have followed up with ID clinic. Please do CT chest as directed prior to your visit with ID clinic. Please follow-up with Dr. Cooper as directed. Please follow-up with your outpatient surgeon for further gastric surgery. While you are on antifungal and antibiotic you will need to have CBC and CMP weekly. Wound care If glue has been used on your incisions after surgery, the glue on the incision will peel slowly over the next two weeks. The stitches used are dissolvable and will not need to be removed. Do not apply antibiotics or other medications on the incision Problems with the wound: you can develop some redness around the incision from bruising after surgery. If there is increasing pain, redness, tenderness around the incision with or without drainage, please contact my office to rule out an infection. Sometimes the skin at the incisions can separate, resulting in reopening of the wound. Cover the wound with antibiotic cream and sterile dressings and contact my office. Contact physician Call the office at [phone] during office hours or go the Emergency Room ?Fever to 100.4 or greater ?Shaking chills ?Pain that increases over time ?Redness, warmth, or pus draining from incision sites ?Persistent nausea or inability to take in liquids Discharge Attestations Time Spent in Discharge Care*: greater than 30 min Specific Discharge Activities: educating patient, educating and/or supporting family/caregiver, discussing with pcp/other providers, discussing with pillowcase cutter/social workers/dc planners, documenting/other paperwork and evaluating patient/reviewing data Status at Discharge: Cognitive status at discharge: cognitively intact, Behavioral status at discharge: cooperative, Functional status at discharge: uses cane/walker Overall status at discharge: patient is back to baseline Quality Metrics Clinical Quality Measures During this hospital stay, did patient experience: None Coding Level of Care Code Acute [facility] note Diagnoses Fungemia B49 VRE bacteremia R78.81; B95.2; Z16.21 Multifocal pneumonia J18.9 Extrinsic ureteral obstruction N13.5 Ovarian cancer on right C56.1 Hypoxia R09.02 Small bowel obstruction K56.609 S/P ureteral stent placement Z96.0 COPD (chronic obstructive pulmonary disease) J44.9 Renal failure N19 Malnutrition E46 History of DVT (deep vein thrombosis) Z86.718 Chronic anticoagulation Z79.01
--- NOTE | 2021-07-11 12:58 | PC.NURSE ---
Patient up for bowel movement. There was already on in the beside commode from previously. both medium sized soft
[2021-07-11] MEDS: fentaNYL 100 mcg Patch 2 PATCH TRANSDERMA (13:07)
--- NOTE | 2021-07-11 14:39 | PC.CHAP ---
Pastoral Care Encounter/Spiritual Assessment Type of Contact [] Declined plastic outfitter visit [] Patient/Family/Request visit [] Outpatient visit [xx] Follow-up visit [] Physician referral [] Code/Alert [] Routine visit [] Staff referral [] Actively dying [] Patient sleeping [] Family support [] [] Out of room [] Palliative care [] [] Receiving care in room [] Pre-surgical visit [] Trauma [xx] Long length of stay [] ICU visit [xx] Other: ISOLATION Relational/Emotional Strength [] Patient feels connected with others/family/visitors/staff [] Distress [] Loneliness/isolation [] Abandonment Spirituality of Patient [] Person of Anuradha [] Attends Synagogue of their Anuradha [] Believes in Prayer [] Reads Bible or Baptism materials [] There are Spiritual issues to be addressed Tooth Inspector Interventions [] Prayer [] Active listening [] Non-anxious presence [] Spiritual/emotional support [] Crisis/trauma care [] Spiritual counseling [] Bereavement support [] Provided bereavement packet [] Provided Bible/devotional materials [] Provided toy/stuffed animal, coloring book to patient or family member [] Provided Communion [] Anointing/[place] [] Salvation [] Completed spiritual assessment [] Other: Impact on Illness or Injury [] Angry [] Fearful [] Anxious [] Often cries [] Exhaustion [] Unable to work [] Unable to attend religion [] Unable to walk/stand [] Unable to read [] Unable to drive [] Unable to eat/drink [] Unable to sleep [] Unable to be with family [] Patient intubated [] Other: Summary Patient continues to be isolated. Time spent with patient
--- NOTE | 2021-07-11 16:08 | PC.NURSE ---
IV removed intact. Patient tolerated well. Joseph Catheter removed intact. Patient is A&Ox3. Respirations even and non-labored on 4 liters NC. Reviewed patient discharge with patient and at this time. Patient has 2 full home oxygen with them and will use these to get home. Patient informed that [facility] would call her with the date and time of her CT scan. Patient verbalized understanding of taking all the medications especially the antibiotics. Patient verbalized understanding of follow up appointments. Called [facility] and updated them that the patient just left and should be home in couple of hours.
--- NOTE | 2021-07-15 11:21 | PC.SOCIAL ---
discharge follow up call made, spoke with pts . patient was seen on 07-14 at [facility] ER, for weakness. says patient was then transferred to [facility] where she is currently hospitalized.
== END 2021-07-11 16:00 | disposition home health service (06) | DRG 177 ==
LOC: CSU 07:40 → ICU 15:49 → MEDSURG 07-03 21:08
PROVIDERS: Family Medicine; Internal Medicine; Internal Medicine Critical Care Medicine; Surgery; Admitting Provider Student in an Organized Health Care Education/Training Program; PCP Internal Medicine Medical Oncology; Visit Provider Student in an Organized Health Care Education/Training Program
PROC: 0BJ08ZZ Inspection of Tracheobronchial Tree, Via Natural or Artificial Opening Endoscopic (ICD-10-PCS; CPT 31622; principal; 2021-07-02 10:45)
PROC: 0JPT0WZ Removal of Totally Implantable Vascular Access Device from Trunk Subcutaneous Tissue and Fascia, Open Approach (ICD-10-PCS; CPT 36589; principal; 2021-07-07 07:00)
DX: J85.1 Abscess of lung with pneumonia (principal); J69.0 Pneumonitis due to inhalation of food and vomit; J96.01 Acute respiratory failure with hypoxia; A41.9 Sepsis, unspecified organism; T80.219A Unspecified infection due to central venous catheter, initial encounter; K56.699 Other intestinal obstruction unspecified as to partial versus complete obstruction; C56.1 Malignant neoplasm of right ovary; C79.89 Secondary malignant neoplasm of other specified sites; N17.9 Acute kidney failure, unspecified; D84.821 Immunodeficiency due to drugs; E46 Unspecified protein-calorie malnutrition; B49 Unspecified mycosis; I76 Septic arterial embolism; B96.20 Unspecified Escherichia coli [E. coli] as the cause of diseases classified elsewhere; I10 Essential (primary) hypertension; E78.5 Hyperlipidemia, unspecified; K21.9 Gastro-esophageal reflux disease without esophagitis; J43.2 Centrilobular emphysema; F41.8 Other specified anxiety disorders; Z92.3 Personal history of irradiation; K59.00 Constipation, unspecified; Z96.0 Presence of urogenital implants; Z87.440 Personal history of urinary (tract) infections; Z90.710 Acquired absence of both cervix and uterus; Z90.49 Acquired absence of other specified parts of digestive tract; F17.210 Nicotine dependence, cigarettes, uncomplicated; N13.5 Crossing vessel and stricture of ureter without hydronephrosis; R00.0 Tachycardia, unspecified; Z79.01 Long term (current) use of anticoagulants; Z79.891 Long term (current) use of opiate analgesic; E86.0 Dehydration; T45.1X5A Adverse effect of antineoplastic and immunosuppressive drugs, initial encounter; Z79.899 Other long term (current) drug therapy; B95.5 Unspecified streptococcus as the cause of diseases classified elsewhere; Y81.1 Therapeutic (nonsurgical) and rehabilitative general- and plastic-surgery devices associated with adverse incidents; Z68.20 Body mass index [BMI] 20.0-20.9, adult; Z86.718 Personal history of other venous thrombosis and embolism
CPT/HCPCS: 31622; 31624; 36415; 36416; 36600; 51702; 71045; 71275; 74022; 74177; 80048; 80051; 80053; 80061; 80202; 81001; 82330; 82436; 82533; 82570; 82607; 82746; 82803; 82805; 82962; 83036; 83540; 83550; 83605; 83735; 83880; 84100; 84132; 84133; 84145; 84300; 84443; 85007; 85025; 85045; 85378; 85999; 86403; 87015; 87040; 87070; 87075; 87077; 87086; 87102; 87106; 87116; 87186; 87205; 87206; 87305; 87385; 87449; 87635; 87641; 87798; 87801; 93005; 93306; 94640; 94660; 94664; 96372; 97110; 97116; 97162; C9113; J0456; J0637; J0878; J1170; J1644; J1650; J1756; J1940; J2020; J2212; J2270; J2405; J2543; J2550; J2704; J2920; J3370; J3420; J3475; J3480; J3490; J7030; J7050; J7512; J7611; J7626; Q9967

== ENCOUNTER 2021-07-13 15:56 | Emergency (ER) | payer MEDICARE, OTHER, SELFPAY ==
[2021-07-13 15:59] VITALS: PULSE 68; RESP 14; TEMP 36.4; O2SAT 92; BMI 16.4
--- NOTE | 2021-07-13 16:08 | ECG_ITS ---
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 Measurements Intervals [place] Rate: 67 P: 68 NC: 153 QRS: 53 QRSD: 88 T: 54 QT: 379 QTc: 401 Interpretive Statements SINUS RHYTHM Compared to ECG 06/29/2021 15:41:41 Sinus tachycardia no longer present T-wave abnormality no longer present Possible ischemia no longer present Electronically Signed On 07-13-2021 21:45:16 CDT by Sergei Pink M.D. [id number]
--- NOTE | 2021-07-13 16:10 | W.ED.GENADLT ---
Documented by User: Glory Walters MD 07/16/21 04:44 HPI - General Adult General: Chief complaint: General Medical Stated complaint: LETHARGY; HX OF OVARIAN CA Time Seen by Provider: 07/13/21 16:04 History of Present Illness: HPI narrative: CC: AMS HPI: [61]yo patient w/ hx of ovarian cancer BIBA for altered mental status. Per family, patient has been using her fentanyl patch, and took some soma and oxycodone today. Family noticed patient was more altered today compared to before and called EMS. On arrival, patient is GCS 15, somnolent but arousble. Patient denies any focal complaints. Of note, patient was recently treated in the hospital for hospital-acquired pneumonia. Patient has a port that was removed and was diagnosed with fungemia. She is currently on linezolid 600 mg every 12 hours, Augmentin 3 times daily and fluconazole 400 mg daily. Patient has no complaints of chest pain, shortness of breath, palpitation, lightheadedness fever chills, or other complaints at this time. Onset: 1 day Duration: ongoing, unclear duration Location: home Severity: moderate Review of Systems Narrative: REVIEW OF SYSTEMS unable to obtain due to current cognitive status PFSH ED PFSH: Medical History (Updated 07/13/21 @ 23:33 by Glory Walters MD) Chronic anticoagulation COPD (chronic obstructive pulmonary disease) COPD exacerbation Extrinsic ureteral obstruction History of DVT (deep vein thrombosis) Hydronephrosis, right Hypoxia Ovarian cancer on right Pelvic pain in female Recurrent UTI Renal failure Secondary malignant neoplasm of other specified sites Small bowel obstruction Surgical History (Updated 07/12/21 @ 00:01 by ) History of hysterectomy with bilateral oophorectomy History of right hemicolectomy S/P ureteral stent placement Family History Mother , at age 59 Cancer breast Myocardial infarction (lateral wall) Father Cancer prostate cancer Pacemaker Other CAD (coronary artery disease) Hypertension Social History Smoking and tobacco status: current every day smoker Alcohol intake: never Adopted: No Caregiver/support person: No Lives independently: No Household members: spouse Marital status: Current occupational status: disabled History of recent travel: No Female Reproductive History: Date of last menstrual period: 12/01/19 Physical Exam Narrative: EXAM NARRATIVE: Head: Atraumatic Eyes: PERRL, conjunctiva without injection ENT: Mucous membrane moist NECK: Supple without lymphadenopathy LUNGS: LCTAB CV: RRR ABDOMEN: Soft, nontender EXTREMITY: Normal ROM SKIN: No rash or erythema, no signs of track harvey, no visible patches, no noticeable cellulitis, +lower back fentanyl patch NEURO: Somnolent but arousable, moving all extremities, GCS of 15, AAOx3, answering all questions PSYCH: Somnolent unable to fully assess at this time Procedures Intubation Time out performed: Yes sedative: Etomidate Mg Given: 10 paralytic: Vecuronium Mg Given: 10 Laryngoscope: Alejandra ET Tube Size: 7.5 ET Tube Uncuffed: No Tube Secured Depth (cm): 21 Tube Secured Location: lips Tube Placement Confirmation: visualized tube passing through cords, equal breath sounds bilaterally, no breath sounds over epigastrium and confirmation by capnometry Patient Tolerated Procedure: well Intubation Complications: none Course Vital Signs: Vital signs: Vital Signs Temperature 97.5 F L 07/13/21 15:59 Pulse Rate 84 07/14/21 05:50 Respiratory Rate 17 07/14/21 05:50 Blood Pressure 94/67 07/14/21 05:50 Pulse Oximetry 96 07/14/21 05:50 MDM - General Adult MDM Narrative: Medical decision making narrative: [61]yo patient w/ hx of ovarian cancer for pain BIBA for AMS. HDS, patient appears to be somnolent but GCS 15, AAox3. Airway maintained. No signs of trauma including bruises, hematoma, lacerations, or basilar skull fracture. NO increased work of breathing or tachypnea on presentation, no suspicion for toxic alcohol vs ASA overdose vs DKA. DDx broad including intracranial injuries, metabolic phenomenon, substance intoxication/withdrawal Toxidrome Findings: Negative. No rigidity or clonus of LE ankle/knee reflexes, no diaphoresis, pupils mid-ranged equal and reactive to light, no signs of track harvey/body patches, normal bowel sounds, and bladder non-palpable/ non-distended. EKG: EKG: Normal Sinus Rhythm. No overt ischemic findings and no prolongation of QTc or QRS intervals. No signs of hyperkalemia (peaked T waves, QRS widening, and [place] prolongation) Workup: CBC, CMP, acetaminophen level, salicylate level, VBG, CK, UA, ECG, UA, CT brain, XR Chest, CT abdomen and pelvis Lab Findings: New VIV on CKD (baseline of 0.4-0.5), K of 5.7, mild troponin elevation On reassessment, the first fentanyl patch was removed from patient from the lower back initially on arrival.. Received some Narcan and now is intermittently agitated. Patient received Ativan and Klonopin post Narcan reversal for opiate withdrawal symptoms. On CT abdomen pelvis, patient is noted to have worsening ileus. I had a shared decision mkaing with patient at this time, patient elects for surgery due to increased cancer mass. Have discussed this with our general surgeon who tells me that they would not be able to perform complex surgical nature of the cancer. Patient likes to be transferred to [facility] since that is where her surgical oncologist are. The case was discusse with Dr. Colin Rivera from [facility] who agrees with the transfer. Given concerns for ileus, patient is also noted to have vomiting, an NG tube was placed. Patient is kept n.p.o. Zofran was given. Blood culture pending given history of recent infection. Shortly after 9 PM, patient became more altered. It was discovered that patient had another fentanyl patch on her buttock that was promptly removed. Patient received 0.4mg of narcan x 3 over 2 hrs span without significant improvement in symptoms. Decision was made to place patient on Narcan drip at 0.4 mg/h. However, patient continues to be hypoxemic in the upper 70s low 80s. Patient was placed on BiPAP 18/10 with O2 at 70% with O2 sat improvement to 90%. She has coarse breath sounds with crackles bilaterally and increased wrok of breathing. Repeat x-ray did not show any signs of noncardiogenic pulmonary edema from narcan, flash pulmonray edema, or pneumothorax. However given need to transfer to outside facility, decision was ultimately made in conjunction with for intubation for airway protection because patient continues to under influence of significant amount of opiate medication, vomited x 2 in the ED from narcan, and was somnolent. At 11:15 PM, decision was made to intubate patient for airway protection. Refer to procedure note for further evaluation. Postoperatively, patient was placed on propofol drip with ketamine 50mg/hr. Given creatinnie of 2.2 that is new from 0.5 from 2 days ago, decision was made to not order CTA for evaluation for PE. Patient also received linzolid, fluconazole, and clindamycin for recent bacteremia and post-port removal fungal infection per request of her as part of daily medication. OG tube placed for decompression secondary to small bowel obstruction. Disposition: Transfer to outside hospital for management of complex tumor burden, small bowel obstruction, hypoxemic respiratory failure, opiate induced AMS Lab Data: Labs: Lab Results 07/13/21 07/13/21 07/13/21 17:49 17:49 17:49 WBC 10.0 10^3/uL 10^3 /uL (4.0-10.0) RBC 3.47 10^6/uL L 10 ^6/uL (4.1-5.3) Hgb 12.0 g/dL g/dL (11.5-15.3) Hct 37.9 % % (37.0-47.0) MCV 109.2 fl H fl (81-99) MCH 34.6 pg H pg (28.0-34.0) MCHC 31.7 g/dL g/dL (30.0-36.0) RDW 16.0 % H % (12.1-15.1) Plt Count 208 10^3/cmm 10^3 /cmm (130-400) MPV 9.7 fL fL (7.4-10.4) Neut % (Auto) 90.0 % % Lymph % (Auto) 3.4 % % [place] % (Auto) 5.4 % % Eos % (Auto) 0.0 % % Baso % (Auto) 0.1 % % Neut # (Auto) 9.04 10^3/uL H 10 ^3/uL (1.8-7.7) Lymph # (Auto) 0.3 10^3/uL L 10^ 3/uL (0.8-4.8) [place] # (Auto) 0.5 10^3/uL 10^3/ uL (0.2-0.9) Eos # (Auto) 0.0 10^3/uL 10^3/ uL (0.0-0.8) Baso # (Auto) 0.0 10^3/uL 10^3/ uL (0.0-0.1) Nucleated RBC % (a uto) 0.6 % % Nucleated RBCs # 0.1 /100WBC /100W BC Specimen Type Sample Site ABG pH ABG pCO2 ABG pO2 ABG HCO3 ABG Base Excess Caesar Test Hematocrit O2 Delivery Device FiO2 PEEP Diet Counselor ID Sodium 133 mmol/L L mmol /L (136-145) Potassium 5.7 mmol/L H mmol /L (3.5-5.1) Chloride 96 mmol/L L mmol/ L (98-107) Carbon Dioxide 26 mmol/L mmol/L (22-29) Anion Gap 16.7 (5-19) BUN 33 mg/dL H mg/dL (8-23) Creatinine 2.2 mg/dL H mg/dL (0.5-0.9) GFR Calculation 22.5 mL/min L mL/ min (90-130) Glucose 118 mg/dL H mg/dL (65-115) Calculated Osmolal ity 284 mOsm/kg L mOs m/kg (285-295) Calcium 9.4 mg/dL mg/dL (8.5-10.5) Magnesium 2.5 mg/dL H mg/dL (1.7-2.3) Total Bilirubin 0.4 mg/dL mg/dL (0.15-1.2) AST 19 U/L U/L (0-32) ALT 28 U/L U/L (0-33) Alkaline Phosphata se 69 IU/L IU/L (35-105) Troponin T Gen 5 n g/L 51 ng/L H ng/L (0-10) Total Protein 6.7 g/dL g/dL (6.6-8.7) Albumin 3.7 g/dL g/dL (3.5-5.2) Globulin 3.0 g/dL g/dL (1.3-4.6) Lipase 13 U/L U/L (13-60) Salicylates < 0.3 mg/dL L mg/ dL (3-10) Urine Opiates Scre en Acetaminophen < 5.0 ug/mL L ug/ mL (10-30) Ur Barbiturates Sc reen Ur Phencyclidine S crn Ur Amphetamines Sc reen U Benzodiazepines Scrn Urine Cocaine Scre en U Marijuana (THC) Screen SARS-CoV-2 Ag (Rap id) 07/13/21 07/14/21 07/14/21 21:47 00:20 00:25 WBC RBC Hgb Hct MCV MCH MCHC RDW Plt Count MPV Neut % (Auto) Lymph % (Auto) [place] % (Auto) Eos % (Auto) Baso % (Auto) Neut # (Auto) Lymph # (Auto) [place] # (Auto) Eos # (Auto) Baso # (Auto) Nucleated RBC % (a uto) Nucleated RBCs # Specimen Type Arterial Sample Site Radial, right ABG pH 7.27 L (7.35-7.45) ABG pCO2 58.7 mmHg H mmHg (35-45) ABG pO2 52.6 mmHg L mmHg (80.0-100.0) ABG HCO3 27.2 mmol/L H mmo l/L (22-26) ABG Base Excess -0.7 mmol/L mmol/ L (-2.0-2.0) Caesar Test Pos Hematocrit 38.5 % % (37-47) O2 Delivery Device Vent FiO2 40.0 % % PEEP 8.0 cmH20 cmH20 Diet Counselor ID [email or web address] Sodium Potassium Chloride Carbon Dioxide Anion Gap BUN Creatinine GFR Calculation Glucose Calculated Osmolal ity Calcium Magnesium Total Bilirubin AST ALT Alkaline Phosphata se Troponin T Gen 5 n g/L Total Protein Albumin Globulin Lipase Salicylates Urine Opiates Scre en Positive ng/mL H ng/mL (Negative) Acetaminophen Ur Barbiturates Sc reen Negative ng/mL ng /mL (Negative) Ur Phencyclidine S crn Negative ng/mL ng /mL (Negative) Ur Amphetamines Sc reen Negative ng/mL ng /mL (Negative) U Benzodiazepines Scrn Negative ng/mL ng /mL (Negative) Urine Cocaine Scre en Negative ng/mL ng /mL (Negative) U Marijuana (THC) Screen Negative ng/mL ng /mL (Negative) SARS-CoV-2 Ag (Rap id) Negative (Negative) Imaging Data^: Other Imaging: Radiologist's impression: [address] [id number] Scan ReportSigned Patient: Nisreen Carrasco VUnit #: [id number]: [id number]#:[id number]/Sex: 61 / FADM Date: 07/13/21Loc: ERRoom/Bed:Attending Dr: Ordering Provider/Ordering MD: Glory Walters MD Date of Service: 07/13/21 Procedure(s): CT abdomen pelvis w con* [id number] Accession Number(s): [id number] Report Number: [id number] PROCEDURE INFORMATION: Exam: CT Abdomen And Pelvis With Contrast Exam date and time: 07/13/2021 5:50 PM Age: 61 years old Clinical indication: Abdominal pain; Generalized; Prior surgery; Surgery date: 6+ months; Surgery type: Hyst; Patient HX: HX of ovarian CA w abd pain; Additional info: Evaluate for worsening ovarian cancer TECHNIQUE: Imaging protocol: Computed tomography of the abdomen and pelvis with contrast. Radiation optimization: All CT scans at this facility use at least one of these dose optimization techniques: automated exposure control; mA and/or kV adjustment per patient size (includes targeted exams where dose is matched to clinical indication); or iterative reconstruction. Contrast material: OMNI 300; Contrast volume: 75 ml; Contrast route: INTRAVENOUS (IV); COMPARISON: CT abdomen pelvis w con* [id number] 07/04/2021 12:47 PM RADIATION DOSE METRICS: Total DLP (mGy-cm): 1173.84 FINDINGS: Lungs: There is patchy ill-defined opacity in the lung bases, decreased since 07/04/2021. Liver: The liver is normal. Gallbladder and bile ducts: The gallbladder is normal. There is no biliary dilation. Pancreas: There is mild atrophy of the pancreas. Spleen: The spleen is unremarkable. Adrenal glands: The adrenal glands are unremarkable. Kidneys and ureters: There is right ureteral stent positioned with the proximal coil in the renal pelvis and distal coil in the urinary bladder. There is severe atrophy of the right kidney. The left kidney and ureter are unremarkable. Stomach and bowel: The stomach is fluid distended. The duodenum and small bowel is diffusely dilated and fluid-filled. There is a right upper quadrant ileocolic anastomosis. There is a right hemicolectomy. There is diffuse gas and fluid distention of the colon to the level of the proximal sigmoid beyond which the colon is decompressed. Appendix: The appendix is absent. Intraperitoneal space: There is no free air or significant intraperitoneal free fluid. Vasculature: There is moderate aortic atherosclerotic disease. Lymph nodes: There is no lymphadenopathy in the retroperitoneum, mesentery, pelvis or inguinal regions. Urinary bladder: The urinary bladder is decompressed, preventing meaningful evaluation of wall thickness. Reproductive: The uterus is absent. There is no adnexal mass or large cyst. Bones/joints: There is moderate degenerative disease in the lumbar spine. The pelvis and proximal femora are intact. Soft tissues: There is a 3.1 x 3.1 cm heterogeneously enhancing mass in the right lower quadrant adjacent to or involving the right psoas muscle. The abdominal wall is intact. CT/CT abdomen pelvis w con* [id number] IMPRESSION: 1. Diffusely dilated small bowel, progressive since 07/04/2021. Possible distal obstruction versus ileus. 2. Marked gas and fluid distention of the colon above sigmoid level with decompression more distally. Obstruction versus ileus. No cause of obstruction is apparent. 3. Unchanged right lower quadrant retroperitoneal mass. Probable metastasis. 4. Decreased bilateral lower lung consolidation since 07/04/2021. 5. Incidental findings above. Radiation Dose CTDIVOL = (mGy): DLP = 1173.84 (mGy-cm) Dictated By:Kole Liriano MDSigned By:Kole Liriano MDSigned Date/Time:07/13/21 [facility] [address] [id number] Scan ReportSigned Patient: Nisreen Carrasco #: [id number]: [id number]#:[id number]/Sex: 61 / FADM Date: 07/13/21Loc: ERRoom/Bed:Attending Dr: Ordering Provider/Ordering MD: Glory Walters MD Date of Service: 07/13/21 Procedure(s): CT head wo con* [id number] Accession Number(s): [id number] Report Number: [id number] PROCEDURE INFORMATION: Exam: CT Head Without Contrast Exam date and time: 07/13/2021 4:27 PM Age: 61 years old Clinical indication: Altered mental status/memory loss; Confusion or disorientation; Patient HX: AMS TECHNIQUE: Imaging protocol: Computed tomography of the head without contrast. Radiation optimization: All CT scans at this facility use at least one of these dose optimization techniques: automated exposure control; mA and/or kV adjustment per patient size (includes targeted exams where dose is matched to clinical indication); or iterative reconstruction. COMPARISON: MRI Head w/wo* [id number] 03/29/2018 1:02 PM RADIATION DOSE METRICS: Total DLP (mGy-cm): 679.72 FINDINGS: Brain: The brain is unremarkable. There is no mass effect or significant white matter disease. There is no acute intracranial hemorrhage. Cerebral ventricles: There is no significant ventricular dilation. The basal cisterns are unremarkable. Paranasal sinuses: The paranasal sinuses are clear. Mastoid air cells: The mastoid air cells are clear. Bones/joints: The calvarium is intact. Soft tissues: The visible extracranial soft tissues are unremarkable. CT/CT head wo con* [id number] IMPRESSION: No acute intracranial abnormality. Radiation Dose CTDIVOL = (mGy): DLP = 679.72 (mGy-cm) Dictated By:Kole Liriano MDSigned By:Kole Liriano MDSigned Date/Time:07/13/211916DD/ [address] [id number] ReportSigned Patient: Nisreen Carrasco #: [id number]: [id number]#:[id number]/Sex: 61 / FADM Date: 07/13/21Loc: ERRoom/Bed:Attending Dr: Ordering Provider/Ordering MD: Glory Walters MD Date of Service: 07/13/21 Procedure(s): XR chest 1V portable [id number] Accession Number(s): [id number] Report Number: [id number] PROCEDURE INFORMATION: Exam: XR Chest Exam date and time: 07/13/2021 8:58 PM Age: 61 years old Clinical indication: Shortness of breath; Prior surgery; Surgery date: <1 month; Surgery type: Port and removal; Additional info: AMS TECHNIQUE: Imaging protocol: XR of the chest. Views: 1 view. COMPARISON: CR XR chest 1V portable [id number] 07/04/2021 6:16 AM FINDINGS: Tubes, catheters and devices: Right chest port has been removed. Lungs: There is opacity in both lung bases, stable since 07/04/2021. Pleural spaces: There is no pleural effusion or pneumothorax. Heart/Mediastinum: Cardiomediastinal contours are unremarkable. Bones/joints: Bones are unremarkable. XR/XR chest 1V portable [id number] IMPRESSION: 1. Stable bilateral pulmonary opacities since 07/04/2021. Nonspecific finding. 2. Interval removal of right chest port. Dictated By:Kole Lirianoigned By:Kole Liriano MDSigned Date/Time:07/13/212128 Critical Care Time Critical Care Time: Critical Care Time: Yes Total Critical Care Time: 45 Attestation: Given the high probability of imminent or life threatening deterioration of the patient?s condition without intervention, the patient was immediately assessed by myself and the nurse, and cardiac monitoring initiated. The patient was also placed on oxygen and continuous pulse oximetry initiated. During the course of the patient?s stay, I spent a considerable amount of time at the bedside performing serial re-evaluations of the patient?s hemodynamic and clinical status because of the recognized potential threat to life or limb in this condition. Clinical management of this patient involved high complexity decision making to assess, manipulate, and support vital organ system failure. I then had a chance to review all of the available laboratory and radiographic studies obtained today, and I also reviewed old records available to me at the time. Sequential vital signs were obtained. Critical care time noted below was time spent engaged in work directly related to the individual patient?s care, not including time performing procedures; however it does include time spent at the immediate bedside or elsewhere on the floor or unit. TOTAL CRITICAL CARE TIME ELAPSED: 45 minutes. BODY SYSTEM AT HIGHEST RISK: Cardiac. Discharge Plan Discharge Patient Disposition: Transfer to ED Clinical Impression: Altered mental status, Bowel obstruction, Ovarian cancer, Small bowel obstruction, Acute hypoxemic respiratory failure Condition: Stable Prescriptions: No Action esomeprazole magnesium [Nexium] 40 mg capsule,delayed release(DR/EC) 40 mg PO BID RF: 0 oxycodone 20 mg tablet 20 mg PO Q6H PRN (Reason: Pain) RF: 0 venlafaxine [Effexor XR] 150 mg capsule,extended release 24hr 150 mg PO DAILY RF: 0 levothyroxine [Synthroid] 50 mcg tablet 50 mcg PO DAILY RF: 0 albuterol sulfate 90 mcg/actuation aerosol powdr breath activated 2 inh INHALATION Q6H PRN (Reason: Exercise Induced Bronchospasm) RF: 0 guaifenesin [Mucinex] 600 mg tablet extended release 12hr 600 mg PO Q12H PRN (Reason: Congestion) RF: 0 Xarelto 20 mg tablet 20 mg PO DAILY RF: 0 Hold Instructions: Resume on 03/14/21. Resume normal dose on 03/14/2021 biotin 1,000 mcg tablet,chewable 1,000 mcg PO DAILY RF: 0 magnesium oxide 500 mg capsule 500 mg PO DAILY RF: 0 potassium gluconate 595 mg (99 mg) tablet 595 mg PO DAILY RF: 0 pregabalin [Lyrica] 150 mg capsule 150 mg PO TID RF: 0 trazodone 150 mg Tablet 150 mg PO BEDTIME RF: 0 fentanyl 100 mcg/hr patch 72 hour 2 patch topical Q72H RF: 0 fluconazole 100 mg Tablet 400 mg PO DAILY 21 Days Qty: 84 RF: 0 linezolid 600 mg Tablet 600 mg PO Q12H 21 Days Qty: 42 RF: 0 metoprolol tartrate 25 mg Tablet 25 mg PO BID@0900,2100 30 Days Qty: 60 RF: 0 Powderlax 17 gram powder in packet 17 g PO BID 30 Days Qty: 100 RF: 0 amlodipine 5 mg tablet 10 mg PO DAILY 30 Days Qty: 60 RF: 0 Discharge Diet: Advance as tolerated Discharge Activity: Resume usual activity Patient Instructions: Cancer Pain Activity Restrictions/Additional Instructions: Come back to the emergency room if you have any lightheadedness, difficulty breathing, shortness of breath, altered mental status, or any new or concerning issues. Coding Level of Care Code ED Library Aide for Chg Fwd Documented by User: Petar Rowley DO 07/14/21 01:15 HPI - General Adult General: Chief complaint: General Medical Stated complaint: LETHARGY; HX OF OVARIAN CA Time Seen by Provider: 07/13/21 16:04 PFSH ED PFSH: Medical History (Updated 07/13/21 @ 23:33 by Glory Walters MD) Chronic anticoagulation COPD (chronic obstructive pulmonary disease) COPD exacerbation Extrinsic ureteral obstruction History of DVT (deep vein thrombosis) Hydronephrosis, right Hypoxia Ovarian cancer on right Pelvic pain in female Recurrent UTI Renal failure Secondary malignant neoplasm of other specified sites Small bowel obstruction Surgical History (Updated 07/12/21 @ 00:01 by ) History of hysterectomy with bilateral oophorectomy History of right hemicolectomy S/P ureteral stent placement Family History Mother , at age 59 Cancer breast Myocardial infarction (lateral wall) Father Cancer prostate cancer Pacemaker Other CAD (coronary artery disease) Hypertension Social History Smoking and tobacco status: current every day smoker Alcohol intake: never Adopted: No Caregiver/support person: No Lives independently: No Household members: spouse Marital status: Current occupational status: disabled History of recent travel: No Course Vital Signs: Vital signs: Vital Signs Temperature 97.5 F L 07/13/21 15:59 Pulse Rate 84 07/14/21 05:50 Respiratory Rate 17 07/14/21 05:50 Blood Pressure 94/67 07/14/21 05:50 Pulse Oximetry 96 07/14/21 05:50 MDM - General Adult MDM Narrative: Medical decision making narrative: 61-year-old female checked out to me by Dr. Walters at shift change. This lady is intubated, on propofol for sedation, and on a ventilator. She has hypoxic respiratory failure, with metastatic ovarian cancer as well. Her creatinine is 2.2. Potassium is 5.7 without changes on EKG of hyperkalemia. She is received IV fluid, is receiving IV antibiotics, and pulmonary support. We do not have ICU/critical care/surgical oncology beds available here. Attempt was made to transfer to [facility] in [facility], but they do not have any ICU beds, nor does any other hospital in [place]. [facility] does have an ICU bed, and has agreed to accept in transfer. Patient will go by air transfer if possible given her acuity and length of transfer time Lab Data: Labs: Lab Results 07/13/21 07/13/21 07/13/21 17:49 17:49 17:49 WBC 10.0 10^3/uL 10^3 /uL (4.0-10.0) RBC 3.47 10^6/uL L 10 ^6/uL (4.1-5.3) Hgb 12.0 g/dL g/dL (11.5-15.3) Hct 37.9 % % (37.0-47.0) MCV 109.2 fl H fl (81-99) MCH 34.6 pg H pg (28.0-34.0) MCHC 31.7 g/dL g/dL (30.0-36.0) RDW 16.0 % H % (12.1-15.1) Plt Count 208 10^3/cmm 10^3 /cmm (130-400) MPV 9.7 fL fL (7.4-10.4) Neut % (Auto) 90.0 % % Lymph % (Auto) 3.4 % % [place] % (Auto) 5.4 % % Eos % (Auto) 0.0 % % Baso % (Auto) 0.1 % % Neut # (Auto) 9.04 10^3/uL H 10 ^3/uL (1.8-7.7) Lymph # (Auto) 0.3 10^3/uL L 10^ 3/uL (0.8-4.8) [place] # (Auto) 0.5 10^3/uL 10^3/ uL (0.2-0.9) Eos # (Auto) 0.0 10^3/uL 10^3/ uL (0.0-0.8) Baso # (Auto) 0.0 10^3/uL 10^3/ uL (0.0-0.1) Nucleated RBC % (a uto) 0.6 % % Nucleated RBCs # 0.1 /100WBC /100W BC Specimen Type Sample Site ABG pH ABG pCO2 ABG pO2 ABG HCO3 ABG Base Excess Caesar Test Hematocrit O2 Delivery Device FiO2 PEEP Diet Counselor ID Sodium 133 mmol/L L mmol /L (136-145) Potassium 5.7 mmol/L H mmol /L (3.5-5.1) Chloride 96 mmol/L L mmol/ L (98-107) Carbon Dioxide 26 mmol/L mmol/L (22-29) Anion Gap 16.7 (5-19) BUN 33 mg/dL H mg/dL (8-23) Creatinine 2.2 mg/dL H mg/dL (0.5-0.9) GFR Calculation 22.5 mL/min L mL/ min (90-130) Glucose 118 mg/dL H mg/dL (65-115) Calculated Osmolal ity 284 mOsm/kg L mOs m/kg (285-295) Calcium 9.4 mg/dL mg/dL (8.5-10.5) Magnesium 2.5 mg/dL H mg/dL (1.7-2.3) Total Bilirubin 0.4 mg/dL mg/dL (0.15-1.2) AST 19 U/L U/L (0-32) ALT 28 U/L U/L (0-33) Alkaline Phosphata se 69 IU/L IU/L (35-105) Troponin T Gen 5 n g/L 51 ng/L H ng/L (0-10) Total Protein 6.7 g/dL g/dL (6.6-8.7) Albumin 3.7 g/dL g/dL (3.5-5.2) Globulin 3.0 g/dL g/dL (1.3-4.6) Lipase 13 U/L U/L (13-60) Salicylates < 0.3 mg/dL L mg/ dL (3-10) Urine Opiates Scre en Acetaminophen < 5.0 ug/mL L ug/ mL (10-30) Ur Barbiturates Sc reen Ur Phencyclidine S crn Ur Amphetamines Sc reen U Benzodiazepines Scrn Urine Cocaine Scre en U Marijuana (THC) Screen SARS-CoV-2 Ag (Rap id) 07/13/21 07/14/21 07/14/21 21:47 00:20 00:25 WBC RBC Hgb Hct MCV MCH MCHC RDW Plt Count MPV Neut % (Auto) Lymph % (Auto) [place] % (Auto) Eos % (Auto) Baso % (Auto) Neut # (Auto) Lymph # (Auto) [place] # (Auto) Eos # (Auto) Baso # (Auto) Nucleated RBC % (a uto) Nucleated RBCs # Specimen Type Arterial Sample Site Radial, right ABG pH 7.27 L (7.35-7.45) ABG pCO2 58.7 mmHg H mmHg (35-45) ABG pO2 52.6 mmHg L mmHg (80.0-100.0) ABG HCO3 27.2 mmol/L H mmo l/L (22-26) ABG Base Excess -0.7 mmol/L mmol/ L (-2.0-2.0) Caesar Test Pos Hematocrit 38.5 % % (37-47) O2 Delivery Device Vent FiO2 40.0 % % PEEP 8.0 cmH20 cmH20 Diet Counselor ID [email or web address] Sodium Potassium Chloride Carbon Dioxide Anion Gap BUN Creatinine GFR Calculation Glucose Calculated Osmolal ity Calcium Magnesium Total Bilirubin AST ALT Alkaline Phosphata se Troponin T Gen 5 n g/L Total Protein Albumin Globulin Lipase Salicylates Urine Opiates Scre en Positive ng/mL H ng/mL (Negative) Acetaminophen Ur Barbiturates Sc reen Negative ng/mL ng /mL (Negative) Ur Phencyclidine S crn Negative ng/mL ng /mL (Negative) Ur Amphetamines Sc reen Negative ng/mL ng /mL (Negative) U Benzodiazepines Scrn Negative ng/mL ng /mL (Negative) Urine Cocaine Scre en Negative ng/mL ng /mL (Negative) U Marijuana (THC) Screen Negative ng/mL ng /mL (Negative) SARS-CoV-2 Ag (Rap id) Negative (Negative) Discharge Plan Discharge Patient Disposition: Transfer to ED Clinical Impression: Altered mental status, Bowel obstruction, Ovarian cancer, Small bowel obstruction, Acute hypoxemic respiratory failure Condition: Stable Prescriptions: No Action esomeprazole magnesium [Nexium] 40 mg capsule,delayed release(DR/EC) 40 mg PO BID RF: 0 oxycodone 20 mg tablet 20 mg PO Q6H PRN (Reason: Pain) RF: 0 venlafaxine [Effexor XR] 150 mg capsule,extended release 24hr 150 mg PO DAILY RF: 0 levothyroxine [Synthroid] 50 mcg tablet 50 mcg PO DAILY RF: 0 albuterol sulfate 90 mcg/actuation aerosol powdr breath activated 2 inh INHALATION Q6H PRN (Reason: Exercise Induced Bronchospasm) RF: 0 guaifenesin [Mucinex] 600 mg tablet extended release 12hr 600 mg PO Q12H PRN (Reason: Congestion) RF: 0 Xarelto 20 mg tablet 20 mg PO DAILY RF: 0 Hold Instructions: Resume on 03/14/21. Resume normal dose on 03/14/2021 biotin 1,000 mcg tablet,chewable 1,000 mcg PO DAILY RF: 0 magnesium oxide 500 mg capsule 500 mg PO DAILY RF: 0 potassium gluconate 595 mg (99 mg) tablet 595 mg PO DAILY RF: 0 pregabalin [Lyrica] 150 mg capsule 150 mg PO TID RF: 0 trazodone 150 mg Tablet 150 mg PO BEDTIME RF: 0 fentanyl 100 mcg/hr patch 72 hour 2 patch topical Q72H RF: 0 fluconazole 100 mg Tablet 400 mg PO DAILY 21 Days Qty: 84 RF: 0 linezolid 600 mg Tablet 600 mg PO Q12H 21 Days Qty: 42 RF: 0 metoprolol tartrate 25 mg Tablet 25 mg PO BID@0900,2100 30 Days Qty: 60 RF: 0 Powderlax 17 gram powder in packet 17 g PO BID 30 Days Qty: 100 RF: 0 amlodipine 5 mg tablet 10 mg PO DAILY 30 Days Qty: 60 RF: 0 Discharge Diet: Advance as tolerated Discharge Activity: Resume usual activity Patient Instructions: Cancer Pain Activity Restrictions/Additional Instructions: Come back to the emergency room if you have any lightheadedness, difficulty breathing, shortness of breath, altered mental status, or any new or concerning issues. Coding Level of Care Code ED Library Aide for Ceasar Castro
--- NOTE | 2021-07-13 16:27 | CTR_ITS ---
PROCEDURE INFORMATION: Exam: CT Head Without Contrast Exam date and time: 07/13/2021 4:27 PM Age: 61 years old Clinical indication: Altered mental status/memory loss; Confusion or disorientation; Patient HX: AMS TECHNIQUE: Imaging protocol: Computed tomography of the head without contrast. Radiation optimization: All CT scans at this facility use at least one of these dose optimization techniques: automated exposure control; mA and/or kV adjustment per patient size (includes targeted exams where dose is matched to clinical indication); or iterative reconstruction. COMPARISON: MRI Head w/wo* [id number] 03/29/2018 1:02 PM RADIATION DOSE METRICS: Total DLP (mGy-cm): 679.72 FINDINGS: Brain: The brain is unremarkable. There is no mass effect or significant white matter disease. There is no acute intracranial hemorrhage. Cerebral ventricles: There is no significant ventricular dilation. The basal cisterns are unremarkable. Paranasal sinuses: The paranasal sinuses are clear. Mastoid air cells: The mastoid air cells are clear. Bones/joints: The calvarium is intact. Soft tissues: The visible extracranial soft tissues are unremarkable. CT/CT head wo con* [id number] IMPRESSION: No acute intracranial abnormality. Radiation Dose CTDIVOL = (mGy): DLP = 679.72 (mGy-cm)
--- NOTE | 2021-07-13 16:45 | PC.NURSE ---
Fingerstick was 92
[2021-07-13 16:50] VITALS: BP 99/63; PULSE 67; RESP 16; O2SAT 94
--- NOTE | 2021-07-13 17:50 | CTR_ITS ---
PROCEDURE INFORMATION: Exam: CT Abdomen And Pelvis With Contrast Exam date and time: 07/13/2021 5:50 PM Age: 61 years old Clinical indication: Abdominal pain; Generalized; Prior surgery; Surgery date: 6+ months; Surgery type: Hyst; Patient HX: HX of ovarian CA w abd pain; Additional info: Evaluate for worsening ovarian cancer TECHNIQUE: Imaging protocol: Computed tomography of the abdomen and pelvis with contrast. Radiation optimization: All CT scans at this facility use at least one of these dose optimization techniques: automated exposure control; mA and/or kV adjustment per patient size (includes targeted exams where dose is matched to clinical indication); or iterative reconstruction. Contrast material: OMNI 300; Contrast volume: 75 ml; Contrast route: INTRAVENOUS (IV); COMPARISON: CT abdomen pelvis w con* [id number] 07/04/2021 12:47 PM RADIATION DOSE METRICS: Total DLP (mGy-cm): 1173.84 FINDINGS: Lungs: There is patchy ill-defined opacity in the lung bases, decreased since 07/04/2021. Liver: The liver is normal. Gallbladder and bile ducts: The gallbladder is normal. There is no biliary dilation. Pancreas: There is mild atrophy of the pancreas. Spleen: The spleen is unremarkable. Adrenal glands: The adrenal glands are unremarkable. Kidneys and ureters: There is right ureteral stent positioned with the proximal coil in the renal pelvis and distal coil in the urinary bladder. There is severe atrophy of the right kidney. The left kidney and ureter are unremarkable. Stomach and bowel: The stomach is fluid distended. The duodenum and small bowel is diffusely dilated and fluid-filled. There is a right upper quadrant ileocolic anastomosis. There is a right hemicolectomy. There is diffuse gas and fluid distention of the colon to the level of the proximal sigmoid beyond which the colon is decompressed. Appendix: The appendix is absent. Intraperitoneal space: There is no free air or significant intraperitoneal free fluid. Vasculature: There is moderate aortic atherosclerotic disease. Lymph nodes: There is no lymphadenopathy in the retroperitoneum, mesentery, pelvis or inguinal regions. Urinary bladder: The urinary bladder is decompressed, preventing meaningful evaluation of wall thickness. Reproductive: The uterus is absent. There is no adnexal mass or large cyst. Bones/joints: There is moderate degenerative disease in the lumbar spine. The pelvis and proximal femora are intact. Soft tissues: There is a 3.1 x 3.1 cm heterogeneously enhancing mass in the right lower quadrant adjacent to or involving the right psoas muscle. The abdominal wall is intact. CT/CT abdomen pelvis w con* [id number] IMPRESSION: 1. Diffusely dilated small bowel, progressive since 07/04/2021. Possible distal obstruction versus ileus. 2. Marked gas and fluid distention of the colon above sigmoid level with decompression more distally. Obstruction versus ileus. No cause of obstruction is apparent. 3. Unchanged right lower quadrant retroperitoneal mass. Probable metastasis. 4. Decreased bilateral lower lung consolidation since 07/04/2021. 5. Incidental findings above. Radiation Dose CTDIVOL = (mGy): DLP = 1173.84 (mGy-cm)
[2021-07-13 17:58] LABS: Basophils % 0.1 %; Hematocrit 37.9 % (37.0-47.0); Lymphocytes # 0.3 10^3/uL (0.8-4.8); Lymphocytes % 3.4 %; Mean Corpuscular HGB Conc 31.7 g/dL (30.0-36.0); Mean Corpuscular Hemoglobin 34.6 pg (28.0-34.0); Mean Corpuscular Volume 109.2 fl (81-99); Mean Platelet Volume 9.7 fL (7.4-10.4); Monocytes # 0.5 10^3/uL (0.2-0.9); Monocytes % 5.4 %; Neutrophils # 9.04 10^3/uL (1.8-7.7); Nucleated Red Blood Cells # 0.1 /100WBC; Nucleated Red Blood Cells % 0.6 %; Platelet Count 208 10^3/cmm (130-400); Red Blood Count 3.47 10^6/uL (4.1-5.3)
[2021-07-13] MEDS: sodium chloride 0.9% 1,000 ML 999 ML IV ×2 (18:00→21:50)
[2021-07-13] MEDS: naloxone 0.4 mg/ml SDV IVP ×2 (18:01→22:00)
[2021-07-13] MEDS: iohexol 300 mg/mL 100 mL Btl IV (18:19)
[2021-07-13 18:31] LABS: Troponin T (5th) Once 51 ng/L (0-10)
[2021-07-13 18:33] LABS: Alanine Aminotransferase 28 U/L (0-33); Albumin Level 3.7 g/dL (3.5-5.2); Alkaline Phosphatase 69 IU/L (35-105); Anion Gap 16.7 (5-19); Aspartate Amino Transferase 19 U/L (0-32); Blood Urea Nitrogen 33 mg/dL (8-23); Calcium 9.4 mg/dL (8.5-10.5); Carbon Dioxide 26 mmol/L (22-29); Chloride 96 mmol/L (98-107); Glomerular Filtration Rate 22.5 mL/min (90-130); Glucose 118 mg/dL (65-115); Lipase 13 U/L (13-60); Magnesium 2.5 mg/dL (1.7-2.3); Osmolality Calculated 284 mOsm/kg (285-295); Potassium 5.7 mmol/L (3.5-5.1); Sodium 133 mmol/L (136-145); Total Bilirubin 0.4 mg/dL (0.15-1.2); Total Protein 6.7 g/dL (6.6-8.7)
[2021-07-13 18:34] LABS: Acetaminophen < 5.0 ug/mL (10-30); Salicylate < 0.3 mg/dL (3-10)
[2021-07-13] MEDS: LORazepam 1 mg Tablet PO (19:10)
[2021-07-13] MEDS: cloNIDine 0.1 mg Tablet PO (20:00)
--- NOTE | 2021-07-13 20:58 | XRR_ITS ---
PROCEDURE INFORMATION: Exam: XR Chest Exam date and time: 07/13/2021 8:58 PM Age: 61 years old Clinical indication: Shortness of breath; Prior surgery; Surgery date: <1 month; Surgery type: Port and removal; Additional info: AMS TECHNIQUE: Imaging protocol: XR of the chest. Views: 1 view. COMPARISON: CR XR chest 1V portable [id number] 07/04/2021 6:16 AM FINDINGS: Tubes, catheters and devices: Right chest port has been removed. Lungs: There is opacity in both lung bases, stable since 07/04/2021. Pleural spaces: There is no pleural effusion or pneumothorax. Heart/Mediastinum: Cardiomediastinal contours are unremarkable. Bones/joints: Bones are unremarkable. XR/XR chest 1V portable [id number] IMPRESSION: 1. Stable bilateral pulmonary opacities since 07/04/2021. Nonspecific finding. 2. Interval removal of right chest port.
[2021-07-13] MEDS: ondansetron 2 mg/ML SDV 2 mL 4 MG IVP (22:00)
--- NOTE | 2021-07-13 22:00 | XRR_ITS ---
PROCEDURE INFORMATION: Exam: XR Chest Exam date and time: 07/13/2021 10:00 PM Age: 61 years old Clinical indication: Shortness of breath; Patient HX: Worsening SOB and dec o2 sats; Additional info: Dyspnea TECHNIQUE: Imaging protocol: XR of the chest. Views: 1 view. COMPARISON: CR (CHEST, ) 07/13/2021 9:08 PM FINDINGS: Lungs: Stable patchy ill-defined opacities in the lower lungs. Pleural spaces: There is no pleural effusion or pneumothorax. Heart/Mediastinum: Cardiomediastinal contours are unremarkable. Bones/joints: Bones are unremarkable. XR/XR chest 1V portable [id number] IMPRESSION: Patchy bilateral lower lung opacities, unchanged compared to the prior chest radiograph.
[2021-07-13 22:15] VITALS: PULSE 105; RESP 36; O2SAT 92
[2021-07-13] MEDS: naloxone 0.4 mg/ml SDV 0.2 MG IVP (22:20)
[2021-07-13 22:31] LABS: SARS Covid-2 Antigen Negative (Negative)
[2021-07-13 22:53] VITALS: BP 127/79; RESP 39
[2021-07-13] MEDS: vecuronium 10 mg SDV IVP (23:23)
[2021-07-13 23:29] VITALS: BP 143/77; PULSE 94; RESP 25; O2SAT 98
--- NOTE | 2021-07-13 23:29 | XRR_ITS ---
PROCEDURE INFORMATION: Exam: XR Chest Exam date and time: 07/13/2021 11:29 PM Age: 61 years old Clinical indication: Device placement; Ett placement (vent status); Patient HX: Et and ng tube placement; Additional info: Post-intubation TECHNIQUE: Imaging protocol: XR of the chest. Views: 1 view. COMPARISON: CR XR chest 1V portable [id number] 07/13/2021 10:01 PM FINDINGS: Tubes, catheters and devices: The endotracheal tube is appropriately positioned in the distal thoracic trachea with the tip above the yarely. NG tube extends into the stomach. The tip is 7 cm beyond the diaphragmatic hiatus. Lungs: There are patchy ill-defined bilateral lower lung opacities. These are stable. Pleural spaces: There is no pleural effusion or pneumothorax. Heart/Mediastinum: Cardiomediastinal contours are unremarkable. Bones/joints: Bones are unremarkable. XR/XR chest 1V portable [id number] IMPRESSION: 1. Satisfactory endotracheal tube position. 2. NG tube tip is in the stomach, 7 cm beyond the diaphragmatic hiatus. Consider advancing the tube another 3-5 cm for ideal position. 3. Stable bilateral lower lung opacities are nonspecific.
[2021-07-13 23:36] VITALS: RESP 16
[2021-07-14] VITALS: BP 134/94; PULSE 88; RESP 26; O2SAT 90
[2021-07-14 00:33] VITALS: BP 106/78; PULSE 88; RESP 17; O2SAT 89
[2021-07-14 00:37] LABS: ABG PCO2 58.7 mmHg (35-45); ABG PH Result 7.27 (7.35-7.45); Arterial Blood Gas Hematocrit 38.5 % (37-47); Base Excess ABG -0.7 mmol/L (-2.0-2.0); Blood Gas Allen Test Pos; Blood Gas Sample Type Arterial; HCO3 ABG 27.2 mmol/L (22-26); PO2 ABG 52.6 mmHg (80.0-100.0)
[2021-07-14 00:39] LABS: Blood Gas Sample Site Radial, right; Oxygen Device VENT
[2021-07-14 01:00] VITALS: BP 93/73; RESP 83; O2SAT 95
[2021-07-14 01:15] VITALS: BP 88/65; PULSE 80; RESP 17; O2SAT 96
[2021-07-14 01:33] VITALS: BP 94/67; PULSE 84; RESP 17; O2SAT 96
[2021-07-14 01:47] LABS: Amphetamines Screen Urine Negative (Negative); Barbiturates Screen Urine Negative (Negative); Benzodiazepines Screen Urine Negative (Negative); Cocaine Screen Urine Negative (Negative); Opiate Screen Urine Positive (Negative); PCP Screen Urine Negative (Negative); THC Screen Urine Negative (Negative)
[2021-07-14] MEDS: propofol 1,000 MG/100 ML INJ 1.43 MG IV (05:43)
[2021-07-14 05:50] VITALS: BP 94/67; PULSE 84; RESP 17; O2SAT 96
== END 2021-07-14 02:00 ==
PROVIDERS: Emergency Medicine; Absent Provider Internal Medicine Medical Oncology; Emergency Provider Emergency Medicine
DX: R41.82 Altered mental status, unspecified (principal); K56.609 Unspecified intestinal obstruction, unspecified as to partial versus complete obstruction; C56.9 Malignant neoplasm of unspecified ovary; J96.01 Acute respiratory failure with hypoxia; J44.9 Chronic obstructive pulmonary disease, unspecified; F17.210 Nicotine dependence, cigarettes, uncomplicated; Z20.822 Contact with and (suspected) exposure to COVID-19
CPT/HCPCS: 31500; 36600; 51702; 70450; 71045; 74177; 80053; 80306; 80307; 82803; 83690; 83735; 84484; 85025; 87040; 87426; 93005; 94002; 94660; 94799; 96365; 96366; 96367; 96375; 96376; 99291; 99292; J2310; J2405; J2704; J3010; J3490; J7030; Q9967

== ENCOUNTER 2021-07-28 21:40 | Inpatient (IN) | payer MEDICARE, OTHER, SELFPAY ==
[2021-07-28 21:41] VITALS: BP 166/110; PULSE 113; RESP 16; TEMP 36.6; O2SAT 100
--- NOTE | 2021-07-28 21:51 | CTR_ITS ---
PROCEDURE INFORMATION: Exam: CT Abdomen And Pelvis With Contrast Exam date and time: 07/28/2021 9:51 PM Age: 61 years old Clinical indication: Abdominal pain; Prior surgery; Surgery type: Hyst, renal stent, port, appy; Patient HX: HX of ovarian cancer; Additional info: Abd pain TECHNIQUE: Imaging protocol: Computed tomography of the abdomen and pelvis with contrast. Radiation optimization: All CT scans at this facility use at least one of these dose optimization techniques: automated exposure control; mA and/or kV adjustment per patient size (includes targeted exams where dose is matched to clinical indication); or iterative reconstruction. Contrast material: OMNI 300; Contrast volume: 75 ml; Contrast route: INTRAVENOUS (IV); COMPARISON: CT abdomen pelvis w con* [id number] 07/13/2021 6:15 PM RADIATION DOSE METRICS: Total DLP (mGy-cm): 690.64 FINDINGS: Lungs: Emphysematous changes. Bibasilar airspace opacities may reflect metastatic disease and/or an infectious process, similar to prior exam. Liver: Hepatic steatosis. Gallbladder and bile ducts: Gallbladder is somewhat prominent, ultrasound could further evaluate this. Pancreas: Normal. No ductal dilation. Spleen: Normal. No splenomegaly. Adrenal glands: Normal. No mass. Kidneys and ureters: See Urinary bladder finding. Stomach and bowel: Multiple dilated small bowel loops measuring up to 4.2 cm consistent with a small bowel obstruction, potentially high-grade, negative for focal transition point seen. Appendix: No evidence of appendicitis. Intraperitoneal space: Unremarkable. No free air. No significant fluid collection. Retroperitoneal space: Right lower quadrant 3.4 cm retroperitoneal mass again seen. Vasculature: Unremarkable. No abdominal aortic aneurysm. Lymph nodes: Unremarkable. No enlarged lymph nodes. Urinary bladder: Right ureteral stent seen in place with apparent displacement of the urinary bladder into the right the pelvis. Reproductive: Unremarkable as visualized. Bones/joints: Unremarkable. No acute fracture. Soft tissues: Unremarkable. Other findings: Constipation. CT/CT abdomen pelvis w con* [id number] IMPRESSION: 1. Multiple dilated small bowel loops measuring up to 4.2 cm consistent with a small bowel obstruction, potentially high-grade, negative for focal transition point seen. 2. Constipation. 3. Right lower quadrant 3.4 cm retroperitoneal mass again seen. 4. Emphysematous changes. 5. Bibasilar airspace opacities may reflect metastatic disease and/or an infectious process, similar to prior exam. 6. Hepatic steatosis. 7. Gallbladder is somewhat prominent, ultrasound could further evaluate this. 8. Right ureteral stent seen in place with apparent displacement of the urinary bladder into the right the pelvis. Radiation Dose CTDIVOL = (mGy): DLP = 690.64 (mGy-cm)
--- NOTE | 2021-07-28 21:59 | ED_ITS ---
HPI - Abdominal Pain General: Chief Complaint: Abdominal Pain Stated Complaint: ABD PAIN Time Seen by Provider: 07/28/21 21:49 Source: patient Mode of arrival: ambulatory Limitations: no limitations History of Present Illness: HPI narrative: 61-year-old female has chronic abdominal pain from ovarian cancer. Patient had been admitted here at the end of June for small bowel obstruction states she started having severe pain again last night. She said no vomiting. She denies any worsening proving factors. States her pain is a 9 out of 10 currently. Denies any chest pain. D enies any fevers Associated Symptoms: Denies chills, dysuria and fever(s) Related Data: Date of Last Menstrual Period: 12/01/19 Review of Systems Const: Denies: fever(s), chills, body aches or change in appetite Eyes: Denies: blurry vision or eye discomfort ENMT: Denies: throat pain or dental pain Card: Denies: chest pain Resp: Denies: dyspnea GI: Reports: abdominal pain : Denies: dysuria Musc: Denies: neck pain or back pain Skin/Breast: Denies: rash Neuro: Denies: headache(s) Psych: Denies: depression Kashif/Lymph: Denies: easy bruising All/Imm: Denies: urticaria PFSH ED PFSH: Medical History Chronic anticoagulation COPD (chronic obstructive pulmonary disease) COPD exacerbation Extrinsic ureteral obstruction History of DVT (deep vein thrombosis) Hydronephrosis, right Hypoxia Ovarian cancer on right Pelvic pain in female Recurrent UTI Renal failure Secondary malignant neoplasm of other specified sites Small bowel obstruction Surgical History History of hysterectomy with bilateral oophorectomy History of right hemicolectomy S/P ureteral stent placement Family History Mother , at age 59 Cancer breast Myocardial infarction (lateral wall) Father Cancer prostate cancer Pacemaker Other CAD (coronary artery disease) Hypertension Social History Smoking and tobacco status: current every day smoker Alcohol intake: never Adopted: No Caregiver/support person: No Lives independently: No Household members: spouse Marital status: Current occupational status: disabled History of recent travel: No Female Reproductive History: Date of last menstrual period: 12/01/19 Physical Exam Const: COMMON NORMALS: no acute distress, patient oriented x3 and healthy appearing HENMT: COMMON NORMALS: normocephalic and atraumatic HEAD & SCALP: normocephalic and atraumatic Eye: COMMON NORMALS: Equal, round and reactive pupils present and EOMs intact bilaterally PUPIL: Yes Equal, round and reactive pupils present Neck/C-Spine: COMMON NORMALS: full ROM and supple Chest: COMMONS NORMALS: normal inspection of the chest and normal palpation of entire chest wall Resp: COMMON NORMALS: normal respiratory effort, No retractions, No use of accessory muscles and clear to auscultation bilaterally AUSCULTATION: clear to auscultation bilaterally Cardio: COMMON NORMALS: regular rate, regular rhythm and No murmurs present (Cardio) RATE: regular rate RHYTHM: regular rhythm GI: COMMON NORMALS: Normal to inspection, nondistended, normoactive bowel sounds present, Soft to palpation and no masses PALPATION: Yes Soft to palpation OTHER: diffuse tenderness Extremity: COMMON NORMALS: normal to inspection and full ROM Neuro: COMMON NORMALS: patient oriented x3, moves all extremities and no focal motor deficits Psych: COMMON NORMALS: mental status grossly normal, Normal thought process present and cooperative THOUGHT PROCESS: Normal thought process present Skin: COMMON NORMALS: no rashes or lesions noted and no wounds GENERAL SKIN EXAM: no rashes or lesions noted Course Vital Signs: Vital signs: Vital Signs Temperature 97.8 F 07/28/21 22:06 Pulse Rate 104 H 07/28/21 22:06 Respiratory Rate 16 07/28/21 22:06 Blood Pressure 167/122 07/28/21 22:06 Pulse Oximetry 100 07/28/21 22:06 MDM - Abdominal Pain MDM Narrative: Medical decision making narrative: Patient presents here with a small bowel obstruction we will place NG tube and spoke to hospitalist and will admit. Patient's been stable while here. Lab Data: Labs: Lab Results 07/28/21 07/28/21 07/28/21 22:02 22:02 22:19 WBC Cancelled Corrected WBC Cancelled RBC Cancelled Hgb Cancelled Hct Cancelled MCV Cancelled MCH Cancelled MCHC Cancelled RDW Cancelled Plt Count Cancelled MPV Cancelled Gran % Cancelled Neut % (Auto) Cancelled Lymph % (Auto) Cancelled [place] % (Auto) Cancelled Eos % (Auto) Cancelled Baso % (Auto) Cancelled Neut # (Auto) Cancelled Lymph # (Auto) Cancelled [place] # (Auto) Cancelled Eos # (Auto) Cancelled Baso # (Auto) Cancelled Absolute Gran (aut o) Cancelled Nucleated RBC % (a uto) Cancelled Nucleated RBCs # Cancelled Sodium 136 mmol/L mmol/L (136-145) Potassium 4.0 mmol/L mmol/L (3.5-5.1) Chloride 94 mmol/L L mmol/ L (98-107) Carbon Dioxide 25 mmol/L mmol/L (22-29) Anion Gap 21.0 H (5-19) BUN 6 mg/dL L mg/dL (8-23) Creatinine 0.6 mg/dL mg/dL (0.5-0.9) GFR Calculation 101.0 mL/min mL/m in (90-130) Glucose 128 mg/dL H mg/dL (65-115) Calculated Osmolal ity 281 mOsm/kg L mOs m/kg (285-295) Lactate 1.0 mmol/L mmol/L (0.5-2.2) Calcium 9.9 mg/dL mg/dL (8.5-10.5) Total Bilirubin 1.4 mg/dL H mg/dL (0.15-1.2) AST 207 U/L H U/L (0-32) ALT 222 U/L H U/L (0-33) Alkaline Phosphata se 298 IU/L H IU/L (35-105) Total Protein 7.2 g/dL g/dL (6.6-8.7) Albumin 4.1 g/dL g/dL (3.5-5.2) Globulin 3.1 g/dL g/dL (1.3-4.6) Lipase 8 U/L L U/L (13-60) 07/28/21 22:19 WBC 9.9 10^3/uL 10^3/ uL (4.0-10.0) Corrected WBC RBC 3.66 10^6/uL L 10 ^6/uL (4.1-5.3) Hgb 12.5 g/dL g/dL (11.5-15.3) Hct 39.7 % % (37.0-47.0) MCV 108.5 fl H fl (81-99) MCH 34.2 pg H pg (28.0-34.0) MCHC 31.5 g/dL g/dL (30.0-36.0) RDW 15.2 % H % (12.1-15.1) Plt Count 171 10^3/cmm 10^3 /cmm (130-400) MPV 9.7 fL fL (7.4-10.4) Gran % Neut % (Auto) 89.0 % % Lymph % (Auto) 4.2 % % [place] % (Auto) 4.9 % % Eos % (Auto) 0.2 % % Baso % (Auto) 0.5 % % Neut # (Auto) 8.81 10^3/uL H 10 ^3/uL (1.8-7.7) Lymph # (Auto) 0.4 10^3/uL L 10^ 3/uL (0.8-4.8) [place] # (Auto) 0.5 10^3/uL 10^3/ uL (0.2-0.9) Eos # (Auto) 0.0 10^3/uL 10^3/ uL (0.0-0.8) Baso # (Auto) 0.1 10^3/uL 10^3/ uL (0.0-0.1) Absolute Gran (aut o) Nucleated RBC % (a uto) 0 % % Nucleated RBCs # 0.0 /100WBC /100W BC Sodium Potassium Chloride Carbon Dioxide Anion Gap BUN Creatinine GFR Calculation Glucose Calculated Osmolal ity Lactate Calcium Total Bilirubin AST ALT Alkaline Phosphata se Total Protein Albumin Globulin Lipase Imaging Data ^: CT Abd/Pel: Attestation: I personally reviewed and interpreted this imaging study as follows: Radiologist's impression: [address] [address] [address] Scan Report Signed Patient: Nisreen Carrasco V Unit #: [id number] : 1960 Age/Sex: 61 / F ADM Date: 07/28/21 Loc: ER Room/Bed: Attending Dr: Ordering Provider/Ordering MD: Isabelle Choi MD Date of Service: 07/28/21 Procedure(s): CT abdomen pelvis w con* [id number] Accession Number(s): [id number] Report Number: [id number] PROCEDURE INFORMATION: Exam: CT Abdomen And Pelvis With Contrast Exam date and time: 07/28/2021 9:51 PM Age: 61 years old Clinical indication: Abdominal pain; Prior surgery; Surgery type: Hyst, renal stent, port, appy; Patient HX: HX of ovarian cancer; Additional info: Abd pain TECHNIQUE: Imaging protocol: Computed tomography of the abdomen and pelvis with contrast. Radiation optimization: All CT scans at this facility use at least one of these dose optimization techniques: automated exposure control; mA and/or kV adjustment per patient size (includes targeted exams where dose is matched to clinical indication); or iterative reconstruction. Contrast material: OMNI 300; Contrast volume: 75 ml; Contrast route: INTRAVENOUS (IV); COMPARISON: CT abdomen pelvis w con* [id number] 07/13/2021 6:15 PM RADIATION DOSE METRICS: Total DLP (mGy-cm): 690.64 FINDINGS: Lungs: Emphysematous changes. Bibasilar airspace opacities may reflect metastatic disease and/or an infectious process, similar to prior exam. Liver: Hepatic steatosis. Gallbladder and bile ducts: Gallbladder is somewhat prominent, ultrasound could further evaluate this. Pancreas: Normal. No ductal dilation. Spleen: Normal. No splenomegaly. Adrenal glands: Normal. No mass. Kidneys and ureters: See Urinary bladder finding. Stomach and bowel: Multiple dilated small bowel loops measuring up to 4.2 cm consistent with a small bowel obstruction, potentially high-grade, negative for focal transition point seen. Appendix: No evidence of appendicitis. Intraperitoneal space: Unremarkable. No free air. No significant fluid collection. Retroperitoneal space: Right lower quadrant 3.4 cm retroperitoneal mass again seen. Vasculature: Unremarkable. No abdominal aortic aneurysm. Lymph nodes: Unremarkable. No enlarged lymph nodes. Urinary bladder: Right ureteral stent seen in place with apparent displacement of the urinary bladder into the right the pelvis. Reproductive: Unremarkable as visualized. Bones/joints: Unremarkable. No acute fracture. Soft tissues: Unremarkable. Other findings: Constipation. CT/CT abdomen pelvis w con* [id number] IMPRESSION: 1. Multiple dilated small bowel loops measuring up to 4.2 cm consistent with a small bowel obstruction, potentially high-grade, negative for focal transition point seen. 2. Constipation. 3. Right lower quadrant 3.4 cm retroperitoneal mass again seen. 4. Emphysematous changes. 5. Bibasilar airspace opacities may reflect metastatic disease and/or an infectious process, similar to prior exam. 6. Hepatic steatosis. 7. Gallbladder is somewhat prominent, ultrasound could further evaluate this. 8. Right ureteral stent seen in place with apparent displacement of the urinary bladder into the right the pelvis. Radiation Dose CTDIVOL = (mGy): DLP = 690.64 (mGy-cm) Dictated By: Anthony Garcia MD Signed By: Anthony Garcia MD Signed Date/Time: 07/29/21 0013 DD/ 2151 Discharge Plan Discharge Patient Disposition: Admitted As Inpatient Clinical Impression: Small bowel obstruction Condition: Stable Coding Level of Care Code ED Admission Specialist for Chg Fwd Exam Comprehensive
[2021-07-28 22:06] VITALS: BP 167/122; PULSE 104; RESP 16; TEMP 36.6; O2SAT 100
[2021-07-28] MEDS: ondansetron 2 mg/ML SDV 2 mL 4 MG IVP (22:08)
[2021-07-28] MEDS: HYDROmorphone 1 mg/mL INJ 1 mL IVP ×2 (22:08→23:49)
[2021-07-28] MEDS: sodium chloride 0.9% 1,000 ML 999 ML IV (22:08)
[2021-07-28 22:23] LABS: Basophils # 0.1 10^3/uL (0.0-0.1); Basophils % 0.5 %; Eosinophils % 0.2 %; Hematocrit 39.7 % (37.0-47.0); Hemoglobin 12.5 g/dL (11.5-15.3); Lymphocytes # 0.4 10^3/uL (0.8-4.8); Lymphocytes % 4.2 %; Mean Corpuscular HGB Conc 31.5 g/dL (30.0-36.0); Mean Corpuscular Hemoglobin 34.2 pg (28.0-34.0); Mean Corpuscular Volume 108.5 fl (81-99); Mean Platelet Volume 9.7 fL (7.4-10.4); Monocytes # 0.5 10^3/uL (0.2-0.9); Monocytes % 4.9 %; Neutrophils # 8.81 10^3/uL (1.8-7.7); Nucleated Red Blood Cells % 0 %; Platelet Count 171 10^3/cmm (130-400); Red Blood Count 3.66 10^6/uL (4.1-5.3); Red Cell Distribution Width 15.2 % (12.1-15.1); White Blood Count 9.9 10^3/uL (4.0-10.0)
[2021-07-28 22:27] LABS: Alanine Aminotransferase 222 U/L (0-33); Albumin Level 4.1 g/dL (3.5-5.2); Alkaline Phosphatase 298 IU/L (35-105); Blood Urea Nitrogen 6 mg/dL (8-23); Calcium 9.9 mg/dL (8.5-10.5); Carbon Dioxide 25 mmol/L (22-29); Chloride 94 mmol/L (98-107); Globulin 3.1 g/dL (1.3-4.6); Glucose 128 mg/dL (65-115); Lipase 8 U/L (13-60); Osmolality Calculated 281 mOsm/kg (285-295); Sodium 136 mmol/L (136-145); Total Bilirubin 1.4 mg/dL (0.15-1.2); Total Protein 7.2 g/dL (6.6-8.7)
[2021-07-28 22:28] LABS: Aspartate Amino Transferase 207 U/L (0-32)
[2021-07-28] MEDS: iohexol 300 mg/mL 100 mL Btl IV (23:16)
[2021-07-29] VITALS (16 sets, daily range): BP systolic 150–184; BP diastolic 74–100; PULSE 72–106; RESP 16–20; TEMP 36.3–36.9; O2SAT 94–100; BMI 17.2
[2021-07-29] MEDS: LORazepam 2 mg/mL INJ 1 mL 1 MG IVP (00:40)
--- NOTE | 2021-07-29 00:53 | XRR_ITS ---
PROCEDURE INFORMATION: Exam: XR Chest Exam date and time: 07/29/2021 12:53 AM Age: 61 years old Clinical indication: Device placement; Ng tube; Additional info: Ng placement TECHNIQUE: Imaging protocol: XR of the chest. Views: 1 view. COMPARISON: CR (CHEST, ) 07/14/2021 12:02 AM FINDINGS: Tubes, catheters and devices: Enteric tube tip below the diaphragm over the gastric bubble. Lungs: Bibasilar right greater than left atelectasis versus minimal infiltrate. Pleural spaces: Unremarkable. No pleural effusion. No pneumothorax. Heart/Mediastinum: Unremarkable. No cardiomegaly. Bones/joints: Unremarkable. XR/XR chest 1V portable [id number] IMPRESSION: 1. Bibasilar right greater than left atelectasis versus minimal infiltrate. 2. Enteric tube tip below the diaphragm over the gastric bubble. Radiation Dose CTDIVOL = (mGy): DLP = (mGy-cm)
--- NOTE | 2021-07-29 01:15 | P.HP_ITS ---
Providers/Chief Complaint Admitting Physician: Katerin Sebastian MD Chief Complaint: ABD PAIN History of Present Illness Nisreen Carrasco is a 61 year old female with past medical history of hypertension, hyperlipidemia, GERD, COPD 4 L oxygen requirement at baseline,, chronic anxiety/depression, recurrence of ovarian cancer, multiple abdominal surgery, abdominal radiation, multiple episodes of small bowel obstruction, right renal atrophy because of ureteral obstruction and hydronephrosis requiring right ureteral stent, progression of ovarian tumor, she was recently discharged from the hospital after prolonged hospitalization, surgery did recommend extensive debulking and additional lysis for her recurrent SBO presented today with chief complaint of abdominal pain nausea and vomiting. She was recommended SNF but patient denied and she was discharged home with Augmentin, fluconazole, linezolid, her hospitalization was complicated with VRE bacteremia and candidemia. EF 55 to 60%. Recent bronchoscopy, bronchial culture consistent with pansensitive E. coli likely secondary to recurrent episode of aspiration pneumonia. Patient is stating that at home she was on liquid diet however yesterday she tried to eat cheese sandwich and after that she started having abdominal pain, nausea, vomiting. In total she has had 3-4 episode of emesis, no fever shortness of breath or chest pain. Her last bowel movement was yesterday(regular, large bowel movement). She decided to come to the hospital today for worsening abdominal pain. Diagnosis in the ER revealed high-grade SBO NG tube was placed, at the time of my evaluation she was complaining of abdominal pain 4/10 systolic blood pressure 170 mm murmur Review of Systems Const: Reports: chills, body aches, change in weight and fatigue Eyes: Denies: change in vision ENMT: Denies: throat pain Card: Denies: chest pain Resp: Denies: dyspnea GI: Reports: abdominal pain and nausea : Denies: flank pain Musc: Denies: neck pain Skin/Breast: Reports: lesions Neuro: Denies: headache(s) Psych: Reports: anxiety Endo: Denies: polyuria Kashif/Lymph: Denies: easy bruising All/Imm: Denies: urticaria Medications/Allergies Home Medications Medication Instructions Recorded Confirmed Last Taken Type albuterol sulfate 90 mcg/actuation 2 inh INHALATION Q6H PRN 11/29/19 06/29/21 06/28/21 14:00 History breath activated powder inhaler biotin 1,000 mcg chewable tablet 1,000 mcg PO DAILY 11/29/19 06/29/21 09/04/20 History esomeprazole magnesium 40 mg 40 mg PO BID cap 11/29/19 06/29/21 06/28/21 21:00 History capsule,delayed release guaifenesin 600 mg tablet, 600 mg PO Q12H PRN 11/29/19 06/29/21 04/24/20 History extended release 12 hr levothyroxine 50 mcg tablet 50 mcg PO DAILY 11/29/19 06/29/21 06/28/21 08:00 History magnesium oxide 500 mg capsule 500 mg PO DAILY 11/29/19 06/29/21 09/04/20 History oxycodone 20 mg tablet 20 mg PO Q6H PRN 11/29/19 06/29/21 06/28/21 21:00 History potassium gluconate 595 mg (99 mg) 595 mg PO DAILY 11/29/19 06/29/21 09/04/20 History tablet pregabalin 150 mg capsule 150 mg PO TID 11/29/19 06/29/21 06/28/21 21:00 History rivaroxaban 20 mg tablet 20 mg PO DAILY 11/29/19 06/29/21 06/28/21 08:00 History venlafaxine 150 mg 150 mg PO DAILY 11/29/19 06/29/21 06/28/21 08:00 History capsule,extended release 24 hr trazodone 150 mg PO BEDTIME 12/01/19 06/29/21 06/28/21 21:00 History fentanyl 2 patch TOPICAL Q72H 12/04/19 06/29/21 06/26/21 08:00 History amlodipine 10 mg PO DAILY 30 Days #60 tab 07/11/21 Unknown Rx fluconazole 400 mg PO DAILY 21 Days #84 tab 07/11/21 Unknown Rx linezolid 600 mg PO Q12H 21 Days #42 tab 07/11/21 Unknown Rx metoprolol tartrate 25 mg PO BID@0900,2100 30 Days #60 07/11/21 Unknown Rx tab polyethylene glycol 3350 17 g PO BID 30 Days #100 ea 07/11/21 Unknown Rx [Powderlax] Allergies Allergy/AdvReac Type Severity Reaction Status Date / Time carboplatin AdvReac ADR-Vomitin Verified 03/10/21 11:00 g PFSH Acute PFSH: Medical History (Updated 07/29/21 @ 02:04 by Katerin Sebastian MD) Bacteremia Chronic anticoagulation COPD (chronic obstructive pulmonary disease) COPD exacerbation Extrinsic ureteral obstruction Fungemia History of DVT (deep vein thrombosis) Hydronephrosis, right Hypoxia Multifocal pneumonia Ovarian cancer on right Pelvic pain in female Recurrent UTI Renal failure Secondary malignant neoplasm of other specified sites Small bowel obstruction VRE bacteremia Surgical History History of hysterectomy with bilateral oophorectomy History of right hemicolectomy S/P ureteral stent placement Family History Mother , at age 59 Cancer breast Myocardial infarction (lateral wall) Father Cancer prostate cancer Pacemaker Other CAD (coronary artery disease) Hypertension Social History Smoking and tobacco status: current every day smoker Alcohol intake: never Adopted: No Caregiver/support person: No Lives independently: No Household members: spouse Marital status: Current occupational status: disabled History of recent travel: No Female Reproductive History: Date of last menstrual period: 12/01/19 Vitals/I&O/Wt Last Vital Signs Temp 97.8 F 07/28/21 22:06 Pulse 104 H 07/28/21 22:06 Resp 16 07/28/21 22:06 BP 167/122 07/28/21 22:06 Pulse Ox 100 07/28/21 22:06 Weight last 48 hrs Weight 49.895 kg Physical Exam Narrative: EXAM NARRATIVE: female who appears more than stated age Malnourished, dehydrated S1, S2 sinus tachycardia no murmur appreciated Abdomen with mild tenderness on deep palpation, bowel sounds hyperactive in all quadrants No rigidity or guarding, does not have diffuse peritonitis symptoms Lower extremity without edema Awake alert oriented x3 GCS 15 In distress secondary to back pain and abdominal pain EOMI, PERRLA nonfocal neuro exam Data : 07/28/21 22:19 07/28/21 22:02 CT Abd/Pel: Radiologist's impression: CT/CT abdomen pelvis w con* [id number] IMPRESSION: 1. Multiple dilated small bowel loops measuring up to 4.2 cm consistent with a small bowel obstruction, potentially high-grade, negative for focal transition point seen. 2. Constipation. 3. Right lower quadrant 3.4 cm retroperitoneal mass again seen. 4. Emphysematous changes. 5. Bibasilar airspace opacities may reflect metastatic disease and/or an infectious process, similar to prior exam. 6. Hepatic steatosis. 7. Gallbladder is somewhat prominent, ultrasound could further evaluate this. 8. Right ureteral stent seen in place with apparent displacement of the urinary bladder into the right the pelvis. A&P Assessment and plan (1) Small bowel obstruction: Status: Acute (2) History of DVT (deep vein thrombosis): Status: Acute (3) Malnutrition: Status: Acute (4) Chronic anticoagulation: Status: Acute Additional A&P Information Recurrent small bowel obstruction Patient is afebrile, normal lactic acid, does not have typical presentation of mesenteric ischemia/bowel ischemia We will follow up with another lactic acid in the morning, KUB She has high-grade SBO, serial abdominal exam and imaging Consider surgery consult in the morning Conservative management NG tube to suction For analgesia would use morphine, Hypotension most likely related to pain Start D5 normal saline maintenance fluid rate abnormal transaminases, procalcitonin 0.5, will request bladder ultrasound Patient is full code N.p.o. DVT prophylaxis SCDs in case she required any intervention would hold off on anticoagulation for now History of VRE: Bacteremia, fungemia: Status post antifungal and antibiotic regimen, Port-A-Cath has been removed, chronic hypoxic restaurant failure currently saturating well on 3 L nasal cannula which is her baseline requirement Attestations Medical Necessity Statement*: More than 2 midnights in the hospital Time Spent in Patient Care: Greater than 35 minutes Coding Level of Care Code Acute [place] [employer] for g Fwd Diagnoses Small bowel obstruction K56.609 History of DVT (deep vein thrombosis) Z86.718 Malnutrition E46 Chronic anticoagulation Z79.01
[2021-07-29 01:55] LABS: Procalcitonin 0.51 ng/mL (0-0.5)
[2021-07-29] MEDS: HYDROmorphone 1 mg/mL INJ 1 mL 0.4 MG IVP (02:13)
[2021-07-29] MEDS: dextrose 5%-sod chloride 0.9% 1,000 ML 30 ML IV (02:14)
--- NOTE | 2021-07-29 02:38 | XRR_ITS ---
PROCEDURE INFORMATION: Exam: XR Chest Exam date and time: 07/29/2021 2:38 AM Age: 61 years old Clinical indication: Device placement; Ng tube; Additional info: Ngt advancement TECHNIQUE: Imaging protocol: XR of the chest. Views: 1 view. COMPARISON: CR (CHEST, ) 07/29/2021 1:17 AM FINDINGS: Tubes, catheters and devices: Feeding tube is in satisfactory position. Surgical clips project over the upper abdomen. Lungs: The lungs are somewhat hyperinflated with increased interstitial markings, likely representing COPD. Persistent streaky bilateral airspace opacities, which may represent chronic scarring or pneumonia in the adequate clinical setting. Pleural spaces: Unremarkable. No pleural effusion. No pneumothorax. Heart/Mediastinum: Stable cardiomediastinal silhouette. Bones/joints: Unremarkable. Other findings: Contrast material in the catheter project over the right upper quadrant. XR/XR chest 1V portable [id number] IMPRESSION: 1. Persistent streaky bilateral airspace opacities, which may represent chronic scarring. Pneumonia should be excluded clinically. 2. COPD changes. 3. Feeding tube is in satisfactory position. Radiation Dose CTDIVOL = (mGy): DLP = (mGy-cm)
--- NOTE | 2021-07-29 02:38 | PC.NURSE ---
NGT advanced 3-4cm per MD order. pt tolerated well. order placed for cxr to verify placement
[2021-07-29] MEDS: morphine 4 mg/mL SDV 1 mL 2 MG IVP ×5 (03:47→20:42)
[2021-07-29 05:39] LABS: Basophils % 0.4 %; Eosinophils % 0.3 %; Hematocrit 34.3 % (37.0-47.0); Hemoglobin 11.2 g/dL (11.5-15.3); Lymphocytes # 0.8 10^3/uL (0.8-4.8); Lymphocytes % 11.2 %; Mean Corpuscular HGB Conc 32.7 g/dL (30.0-36.0); Mean Corpuscular Hemoglobin 34.1 pg (28.0-34.0); Mean Corpuscular Volume 104.6 fl (81-99); Mean Platelet Volume 10.1 fL (7.4-10.4); Monocytes # 0.6 10^3/uL (0.2-0.9); Monocytes % 8.2 %; Neutrophils # 5.56 10^3/uL (1.8-7.7); Nucleated Red Blood Cells % 0 %; Platelet Count 168 10^3/cmm (130-400); Red Blood Count 3.28 10^6/uL (4.1-5.3); Red Cell Distribution Width 15.1 % (12.1-15.1)
[2021-07-29 05:56] LABS: Lactate (Lactic Acid level) 0.9 mmol/L (0.5-2.2)
--- NOTE | 2021-07-29 06:00 | XR_ITS ---
WS: [id number] XR KUB portable [id number] REASON FOR EXAM: sbo FINDINGS: No free air or retroperitoneal air is identified. Residual contrast from previous CT scan in the right renal collecting system and in the urinary bladd er. Right ureteral stent, properly positioned. Nasogastric tube has been placed. The tip is in the antropyloric region of the stomach. There has bee n significant decompression of the dilated small bowel. Mild to moderate dilatation exists in central bowel loops. XR/XR KUB portable [id number] IMPRESSION: Nasogastric tube placement with significant small bowel decompression.
[2021-07-29 06:02] LABS: Alanine Aminotransferase 244 U/L (0-33); Albumin Level 3.7 g/dL (3.5-5.2); Alkaline Phosphatase 249 IU/L (35-105); Anion Gap 12.6 (5-19); Aspartate Amino Transferase 222 U/L (0-32); Blood Urea Nitrogen 6 mg/dL (8-23); C Reactive Protein 8.9 mg/L (0.0-4.9); Calcium 9.5 mg/dL (8.5-10.5); Carbon Dioxide 34 mmol/L (22-29); Chloride 94 mmol/L (98-107); Globulin 3.2 g/dL (1.3-4.6); Glomerular Filtration Rate 124.6 mL/min (90-130); Glucose 112 mg/dL (65-115); Magnesium 1.5 mg/dL (1.7-2.3); Osmolality Calculated 282 mOsm/kg (285-295); Potassium 3.6 mmol/L (3.5-5.1); Sodium 137 mmol/L (136-145); Total Bilirubin 1.1 mg/dL (0.15-1.2); Total Protein 6.9 g/dL (6.6-8.7)
[2021-07-29] MEDS: pantoprazole 40 mg SDV IVP (08:30)
--- NOTE | 2021-07-29 10:47 | PC.CHAP ---
Pastoral Care Encounter/Spiritual Assessment Type of Contact [] Declined nursing secretary visit [] Patient/Family/Request visit [] Outpatient visit [] Follow-up visit [] Physician referral [] Code/Alert [x] Routine visit [] Staff referral [] Actively dying [] Patient sleeping [] Family support [] [] Out of room [] Palliative care [] [x] Receiving care in room [] Pre-surgical visit [] Trauma [] Long length of stay [] ICU visit [] Other: Relational/Emotional Strength [] Patient feels connected with others/family/visitors/staff [] Distress [] Loneliness/isolation [] Abandonment Spirituality of Patient [] Person of Anuradha [] Attends Oriental Orthodox of their Anuradha [] Believes in Prayer [] Reads Bible or Faith materials [] There are Spiritual issues to be addressed Cold [place] Interventions [] Prayer [] Active listening [] Non-anxious presence [] Spiritual/emotional support [] Crisis/trauma care [] Spiritual counseling [] Bereavement support [] Provided bereavement packet [] Provided Bible/devotional materials [] Provided toy/stuffed animal, coloring book to patient or family member [] Provided Communion [] Anointing/[place] [] Salvation [] Completed spiritual assessment [] Other: Impact on Illness or Injury [] Angry [] Fearful [] Anxious [] Often cries [] Exhaustion [] Unable to work [] Unable to attend muslim [] Unable to walk/stand [] Unable to read [] Unable to drive [] Unable to eat/drink [] Unable to sleep [] Unable to be with family [] Patient intubated [] Other: Summary Time spent with patient
--- NOTE | 2021-07-29 11:31 | PC.NURSE ---
Per Dr Moore during roundings patient NG tube suction turned off and diet advanced to full liquid diet at lunch.
--- NOTE | 2021-07-29 16:53 | P.PN_ITS ---
Subjective Subjective: Interval history: Patient was seen and examined this morning, she is able to pass stool and flatus, was initially having minimal abdominal pain, early ambulation was advised NG tube was clamped, full liquid was attempted, but patient later started complaining of more abdominal pain, NG tube was put back to suction. Medications: Reviewed: Yes Vitals/I&O/Wt Last Vital Signs Temp 97.8 F 07/29/21 12:00 Pulse 85 07/29/21 12:00 Resp 19 H 07/29/21 16:37 BP 155/74 07/29/21 12:00 Pulse Ox 99 07/29/21 12:00 07/29/21 07/29/21 07/29/21 06:59 14:59 22:59 Intake Total 1000 / 1000 278.5 / 278.5 Output Total 900 / 900 700 / 700 Balance 100 / 100 278.5 / 278.5 -700 / -421.5 Weight last 48 hrs Weight 49.895 kg Weight 49.895 kg Physical Exam Const: COMMON NORMALS: patient oriented x3 HENMT: COMMON NORMALS: normocephalic and atraumatic HEAD & SCALP: normocephalic and atraumatic Resp: COMMON NORMALS: clear to auscultation bilaterally EFFORT & INSPECTION: Yes symmetric chest movement AUSCULTATION: clear to auscultation bilaterally Cardio: COMMON NORMALS: regular rate, regular rhythm, S1 normal heart sound present, S2 normal heart sound present, No gallops present (Cardio), No murmurs present (Cardio), No rub (Cardio) and Peripheral pulses 2+ throughout RATE: regular rate RHYTHM: regular rhythm HEART SOUNDS: S1 normal heart sound present and S2 normal heart sound present PERIPHERAL PULSES: Peripheral pulses 2+ throughout GI: COMMON NORMALS: Normal to inspection, nondistended, normoactive bowel sounds present and no masses AUSCULTATION: Yes normoactive bowel sounds RECTAL EXAM: deferred OTHER: Minimum right upper quadrant tenderness present, no guarding no rigidity, no rebound tenderness. Extremity: COMMON NORMALS: no clubbing, cyanosis or edema and no pedal edema Neuro: COMMON NORMALS: patient oriented x3 Data : 07/29/21 05:28 07/29/21 05:28 A&P Assessment and plan (1) Small bowel obstruction: Currently n.p.o. NG tube to suction IV hydration: D5 NS at 75 cc an hour Morphine for pain control Lactic acid normal Status: Acute (2) Transaminitis: Ultrasound abdomen Monitor CMP Status: Acute (3) History of DVT (deep vein thrombosis): Status: Acute (4) Malnutrition: Status: Acute (5) Chronic anticoagulation: Status: Acute Additional A&P Information Recurrent small bowel obstruction Patient is afebrile, normal lactic acid, does not have typical presentation of mesenteric ischemia/bowel ischemia We will follow up with another lactic acid in the morning, KUB She has high-grade SBO, serial abdominal exam and imaging Consider surgery consult in the morning Conservative management NG tube to suction For analgesia would use morphine, Hypotension most likely related to pain Start D5 normal saline maintenance fluid rate abnormal transaminases, procalcitonin 0.5, will request bladder ultrasound Patient is full code N.p.o. DVT prophylaxis SCDs in case she required any intervention would hold off on anticoagulation for now History of VRE: Bacteremia, fungemia: Status post antifungal and antibiotic regimen, Port-A-Cath has been removed, chronic hypoxic restaurant failure currently saturating well on 3 L nasal cannula which is her baseline requirement Attestations Medical Necessity Statement*: For management of small bowel obstruction. Coding Level of Care Code Acute Quality Control Lead for g Fwd Diagnoses Small bowel obstruction K56.609 Transaminitis R74.01 History of DVT (deep vein thrombosis) Z86.718 Malnutrition E46 Chronic anticoagulation Z79.01
[2021-07-29] MEDS: dextrose 5%-sod chloride 0.9% 1,000 ML 75 ML IV (19:34)
[2021-07-30] VITALS (15 sets, daily range): BP systolic 169–180; BP diastolic 82–91; PULSE 70–87; RESP 16–18; TEMP 36.4–36.9; O2SAT 95–100
[2021-07-30] MEDS: morphine 4 mg/mL SDV 1 mL 2 MG IVP ×6 (01:39→23:43)
[2021-07-30] MEDS: ondansetron 2 mg/ML SDV 2 mL 4 MG IVP ×3 (01:40→16:57)
[2021-07-30 05:17] LABS: Basophils % 0.7 %; Eosinophils # 0.1 10^3/uL (0.0-0.8); Eosinophils % 1.7 %; Hematocrit 31.1 % (37.0-47.0); Lymphocytes # 0.8 10^3/uL (0.8-4.8); Lymphocytes % 19.3 %; Mean Corpuscular HGB Conc 32.2 g/dL (30.0-36.0); Mean Corpuscular Hemoglobin 33.3 pg (28.0-34.0); Mean Corpuscular Volume 103.7 fl (81-99); Monocytes # 0.5 10^3/uL (0.2-0.9); Monocytes % 11.8 %; Neutrophils # 2.73 10^3/uL (1.8-7.7); Neutrophils % 65.8 %; Nucleated Red Blood Cells % 0 %; Platelet Count 142 10^3/cmm (130-400); Red Cell Distribution Width 14.5 % (12.1-15.1); White Blood Count 4.2 10^3/uL (4.0-10.0)
[2021-07-30 05:52] LABS: Alanine Aminotransferase 234 U/L (0-33); Albumin Level 3.4 g/dL (3.5-5.2); Alkaline Phosphatase 192 IU/L (35-105); Anion Gap 11.6 (5-19); Aspartate Amino Transferase 165 U/L (0-32); Blood Urea Nitrogen 5 mg/dL (8-23); Carbon Dioxide 33 mmol/L (22-29); Chloride 95 mmol/L (98-107); Globulin 2.9 g/dL (1.3-4.6); Glomerular Filtration Rate 161.2 mL/min (90-130); Glucose 110 mg/dL (65-115); Osmolality Calculated 282 mOsm/kg (285-295); Sodium 137 mmol/L (136-145); Total Bilirubin 0.8 mg/dL (0.15-1.2); Total Protein 6.3 g/dL (6.6-8.7)
--- NOTE | 2021-07-30 06:00 | US_ITS ---
WS: [id number] RIGHT UPPER QUADRANT ULTRASOUND HISTORY: Transaminitis COMPARISON: 05/01/2015 Liver: 16.7 cm in length. Liver is top normal size. No central or intrahepatic bile duct dilatation. Gallbladder: Normally distended gallbladder. Numerous stones are present within the gallbladder. No p ericholecystic fluid. Gallbladder wall is top normal size at 3 mm. CBD: 0.6 cm Pancreas: Normal size and echogenicity. Right kidney: 8.0 cm in length. Moderate atrophy of the RIGHT kidney with increased echogenicity and poor cortical medullary differentiation. No hydronephrosis and the pigtail of the RIGHT ureteral sten t is not visualized by ultrasound. Aorta and IVC: Atherosclerosis aorta. No ascites. US/US abdomen limited [id number] IMPRESSION: 1. Cholelithiasis without evidence for acute cholecystitis. 2. Common bile duct is top normal size. No intrahepatic dilatation. 3. Moderate atrophy RIGHT kidney with no hydronephrosis.
--- NOTE | 2021-07-30 06:00 | XR_ITS ---
WS: [id number] XR KUB portable [id number] REASON FOR EXAM: SBO FINDINGS: Nasogastric tube has been retracted and now is in the antrum/body of the stomach. The right ureteral stent has displaced inferiorly opening the proximal pigtail of the stent. Bowel gas pattern is unremarkable. Gas in the rectum. XR/XR KUB portable [id number] IMPRESSION: Position change of ureteral stenting NG tube as above. Unremarkable bowel gas pattern.
[2021-07-30 06:06] LABS: Potassium 2.6 mmol/L (3.5-5.1)
--- NOTE | 2021-07-30 06:38 | PC.NURSE ---
Dr Sparks notified of pt critical K+ of 2.6.
[2021-07-30] MEDS: ipratropium-albuterol 3 mL Neb INHALATION ×2 (07:41→21:30)
[2021-07-30] MEDS: pantoprazole 40 mg SDV IVP (08:28)
[2021-07-30] MEDS: dextrose 5%-sod chloride 0.9% 1,000 ML 75 ML IV (08:37)
--- NOTE | 2021-07-30 09:29 | PC.CHAP ---
Pastoral Care Encounter/Spiritual Assessment Type of Contact [] Declined automation controls specialist visit [] Patient/Family/Request visit [] Outpatient visit [] Follow-up visit [] Physician referral [] Code/Alert [x] Routine visit [] Staff referral [] Actively dying [] Patient sleeping [] Family support [] [] Out of room [] Palliative care [] [] Receiving care in room [] Pre-surgical visit [] Trauma [] Long length of stay [] ICU visit [] Other: Relational/Emotional Strength [x] Patient feels connected with others/family/visitors/staff [] Distress [] Loneliness/isolation [] Abandonment Spirituality of Patient [x] Person of Anuradha [] Attends Jew of their Anuradha [] Believes in Prayer [] Reads Bible or Sikhism materials [] There are Spiritual issues to be addressed 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 Interventions [x] Prayer [x] Active listening [x] Non-anxious presence [] Spiritual/emotional support [] Crisis/trauma care [] Spiritual counseling [] Bereavement support [] Provided bereavement packet [] Provided Bible/devotional materials [] Provided toy/stuffed animal, coloring book to patient or family member [] Provided Communion [] Anointing/[place] [] Salvation [x] Completed spiritual assessment [] Other: Impact on Illness or Injury [] Angry [] Fearful [] Anxious [] Often cries [] Exhaustion [] Unable to work [] Unable to attend taoism [] Unable to walk/stand [] Unable to read [] Unable to drive [] Unable to eat/drink [] Unable to sleep [] Unable to be with family [] Patient intubated [] Other: Summary Time spent with patient 10 min
[2021-07-30] MEDS: sodium chlor 0.9% + KCl 40 mEq 40 MEQ/1,000 ML BAG 75 MEQ IV (10:45)
--- NOTE | 2021-07-30 11:00 | P.PN_ITS ---
Subjective Subjective: Interval history: Patient was seen and examined this morning, continued to complain of abdominal pain, currently passing flatus. XR KUB portable: Unremarkable bowel gas pattern. NG tube continue to suction. Medications: Reviewed: Yes Vitals/I&O/Wt Last Vital Signs Temp 97.6 F 07/30/21 08:00 Pulse 83 07/30/21 08:00 Resp 16 07/30/21 10:36 BP 171/88 07/30/21 08:00 Pulse Ox 96 07/30/21 08:00 07/29/21 07/30/21 07/30/21 22:59 06:59 14:59 Intake Total 1083.75 / 1362.25 300 / 1662.25 978.75 / 978.75 Output Total 900 / 900 2150 / 3050 Balance 183.75 / 462.25 -1850 / -1387.75 978.75 / 978.75 Weight last 48 hrs Weight 49.895 kg Weight 49.895 kg Physical Exam Const: COMMON NORMALS: patient oriented x3 HENMT: COMMON NORMALS: normocephalic and atraumatic HEAD & SCALP: normocep halic and atraumatic Resp: COMMON NORMALS: clear to auscultation bilaterally EFFORT & INSPECTION: Yes symmetric chest movement AUSCULTATION: clear to auscultation bilaterally Cardio: COMMON NORMALS: regular rate, regular rhythm, S1 normal heart sound present, S2 normal heart sound present, No gallops present (Cardio), No murmurs present (Cardio), No rub (Cardio) and Peripheral pulses 2+ throughout RATE: regular rate RHYTHM: regular rhythm HEART SOUNDS: S1 normal heart sound present and S2 normal heart sound present PERIPHERAL PULSES: Peripheral pulses 2+ throughout GI: COMMON NORMALS: Normal to inspection, nondistended, normoactive bowel sounds present and no masses AUSCULTATION: Yes normoactive bowel sounds RECTAL EXAM: deferred OTHER: Minimum right upper quadrant tenderness present, no guarding no rigidity, no rebound tenderness. Extremity: COMMON NORMALS: no clubbing, cyanosis or edema and no pedal edema Neuro: COMMON NORMALS: patient oriented x3 Data : 07/30/21 04:45 07/30/21 04:45 A&P Assessment and plan (1) Small bowel obstruction: Currently n.p.o. NG tube to suction IV hydration: NS with 40 mEq of potassium at 75 cc an hour Morphine for pain control Lactic acid normal Status: Acute (2) Transaminitis: Ultrasound abdomen: Cholelithiasis without evidence for acute cholecystitis.Common bile duct is top normal size. No intrahepatic dilatation. AST ALT ALP is trending down. Monitor CMP Status: Acute (3) History of DVT (deep vein thrombosis): Status: Acute (4) Malnutrition: Status: Acute (5) Chronic anticoagulation: Status: Acute Additional A&P Information Recurrent small bowel obstruction Patient is afebrile, normal lactic acid, does not have typical presentation of mesenteric ischemia/bowel ischemia We will follow up with another lactic acid in the morning, KUB She has high-grade SBO, serial abdominal exam and imaging Consider surgery consult in the morning Conservative management NG tube to suction For analgesia would use morphine, Hypotension most likely related to pain Start D5 normal saline maintenance fluid rate abnormal transaminases, procalcitonin 0.5, will request bladder ultrasound Patient is full code N.p.o. DVT prophylaxis SCDs in case she required any intervention would hold off on anticoagulation for now History of VRE: Bacteremia, fungemia: Status post antifungal and antibiotic regimen, Port-A-Cath has been removed, chronic hypoxic restaurant failure currently saturating well on 3 L nasal cannula which is her baseline requirement Attestations Medical Necessity Statement*: Patient is to be in hospital for management of small bowel. Coding Level of Care Code Acute Clinical Geneticist for Chg Fwd Diagnoses Small bowel obstruction K56.609 Transaminitis R74.01 History of DVT (deep vein thrombosis) Z86.718 Malnutrition E46 Chronic anticoagulation Z79.01
[2021-07-30] MEDS: lidocaine 1% 5 ML in potassium chloride premix 100 ML 25 ML IV (11:48)
[2021-07-30] MEDS: HYDROmorphone 1 mg/mL INJ 1 mL IVP (16:49)
[2021-07-31] VITALS (14 sets, daily range): BP systolic 169–189; BP diastolic 86–112; PULSE 71–84; RESP 16–20; TEMP 36.4–36.8; O2SAT 96–100
[2021-07-31] MEDS: morphine 4 mg/mL SDV 1 mL 2 MG IVP ×6 (04:13→20:26)
[2021-07-31] MEDS: hyDRALAzine 20 mg/mL INJ 1 mL 5 MG IVP (04:47)
[2021-07-31 06:12] LABS: Basophils % 0.5 %; Hematocrit 31.7 % (37.0-47.0); Hemoglobin 11.1 g/dL (11.5-15.3); Lymphocytes # 0.7 10^3/uL (0.8-4.8); Mean Corpuscular Hemoglobin 34.7 pg (28.0-34.0); Mean Corpuscular Volume 99.1 fl (81-99); Mean Platelet Volume 11.4 fL (7.4-10.4); Monocytes # 0.5 10^3/uL (0.2-0.9); Monocytes % 11.2 %; Neutrophils # 2.81 10^3/uL (1.8-7.7); Neutrophils % 68.3 %; Nucleated Red Blood Cells % 0 %; Platelet Count 140 10^3/cmm (130-400); Red Cell Distribution Width 14.2 % (12.1-15.1); White Blood Count 4.1 10^3/uL (4.0-10.0)
[2021-07-31 06:25] LABS: Slide Review Slide Review Perform
[2021-07-31 07:47] LABS: Alanine Aminotransferase 196 U/L (0-33); Albumin Level 3.5 g/dL (3.5-5.2); Alkaline Phosphatase 167 IU/L (35-105); Blood Urea Nitrogen 3 mg/dL (8-23); Calcium 8.6 mg/dL (8.5-10.5); Carbon Dioxide 25 mmol/L (22-29); Chloride 97 mmol/L (98-107); Globulin 2.5 g/dL (1.3-4.6); Glomerular Filtration Rate 224.7 mL/min (90-130); Glucose 97 mg/dL (65-115); Osmolality Calculated 274 mOsm/kg (285-295); Sodium 134 mmol/L (136-145); Total Bilirubin 0.8 mg/dL (0.15-1.2)
[2021-07-31 07:48] LABS: Creatinine Clr Calc Pharmacy 151.1865
[2021-07-31 07:49] LABS: Aspartate Amino Transferase 88 U/L (0-32)
[2021-07-31] MEDS: pantoprazole 40 mg SDV IVP (08:29)
[2021-07-31] MEDS: ipratropium-albuterol 3 mL Neb INHALATION (09:25)
--- NOTE | 2021-07-31 10:18 | CT_ITS ---
WS: [id number] CT abdomen pelvis w con* [id number] REASON FOR EXAM: rt right ureteral stent position verification IV CONTRAST ADMINISTERED: 75 mL of Omnipaque 300 TOTAL EXAM DLP: 738.[address] scans at [facility] use at least one of these dose optimization techniques: automat ed exposure control; mA and/or kV adjustment per patient size (includes targeted exams where dose is matched to clinical indication); or iterative reconstruction. FINDINGS: The liver, spleen, pancreas, and gallbladder are unchanged compared to the previous examination of . Left kidney is unchanged. Significantly dilated small bowel unchanged. The proximal and of the ureteral stent is not significantly changed in position compared to multiple previous CT scans since May. The normal pigtail configuration of the proximal ureteral stent was c hanged in the interim from 12/10/2020 to 06/06/2021. The tip became lodged in the lower pole of the ki dney and uncoiedl the pigtail configuration. Proximal end of the stent is well within the right kidne y collecting system. The distal end of the ureteral stent varies greatly depending on the degree of f luid in the neobladder. Again is noted the mass encasing the right ureter and narrowing the small bowel. CT/CT abdomen pelvis w con* [id number] IMPRESSION: Over time the configuration of the proximal right ureteral stent has changed ho wever the stent is still in place for drainage. With no change in the degree of dilatation of the renal collecting system and the normal enhancement of the re nal parenchyma of the right kidney the stent is assumed to be functioning.
[2021-07-31] MEDS: iohexol 300 mg/mL 50 mL Btl IV (10:29)
[2021-07-31] MEDS: iohexol 300 mg/mL 100 mL Btl IV (12:26)
[2021-07-31] MEDS: fentaNYL 100 mcg Patch 1 PATCH TRANSDERMA (13:35)
[2021-07-31] MEDS: sodium chlor 0.9% + KCl 40 mEq 40 MEQ/1,000 ML BAG 75 MEQ IV ×2 (13:50)
--- NOTE | 2021-07-31 15:47 | PC.NURSE ---
noon vitals weren't done because the patient was off the floor at that time.
[2021-07-31] MEDS: ondansetron 2 mg/ML SDV 2 mL 4 MG IVP ×2 (16:43→20:26)
--- NOTE | 2021-07-31 17:16 | PM.PN ---
Subjective Subjective: Interval history: Patient was seen and examined this morning,N.G tube has been removed, passing stool and flatus, trying to improve on her diet.Says abdominal pain has improved. Medications: Reviewed: Yes Vitals/I&O/Wt Last Vital Signs Temp 97.9 F 07/31/21 15:46 Pulse 84 07/31/21 16:19 Resp 18 07/31/21 16:32 BP 173/92 07/31/21 15:46 Pulse Ox 100 07/31/21 16:19 07/31/21 07/31/21 07/31/21 06:59 14:59 22:59 Intake Total 1623.75 / 2947.50 1720 / 1720 201.25 / 1921.25 Output Total 680 / 1480 Balance 943.75 / 1467.50 1720 / 1720 201.25 / 1921.25 Physical Exam Const: COMMON NORMALS: patient oriented x3 HENMT: COMMON NORMALS: normocephalic and atraumatic HEAD & SCALP: normocephalic and atraumatic Resp: COMMON NORMALS: clear to auscultation bilaterally EFFORT & INSPECTION: Yes symmetric chest movement AUSCULTATION: clear to auscultation bilaterally Cardio: COMMON NORMALS: regular rate, regular rhythm, S1 normal heart sound present, S2 normal heart sound present, No gallops present (Cardio), No murmurs present (Cardio), No rub (Cardio) and Peripheral pulses 2+ throughout RATE: regular rate RHYTHM: regular rhythm HEART SOUNDS: S1 normal heart sound present and S2 normal heart sound present PERIPHERAL PULSES: Peripheral pulses 2+ throughout GI: COMMON NORMALS: Normal to inspection, nondistended, normoactive bowel sounds present and no masses AUSCULTATION: Yes normoactive bowel sounds RECTAL EXAM: deferred OTHER: Minimum right upper quadrant tenderness present, no guarding no rigidity, no rebound tenderness. Extremity: COMMON NORMALS: no clubbing, cyanosis or edema and no pedal edema Neuro: COMMON NORMALS: patient oriented x3 Data : 07/31/21 05:16 07/31/21 06:52 A&P Assessment and plan (1) Small bowel obstruction: On Full liquid diet NG tube removed IV hydration: NS with 40 mEq of potassium at 75 cc an hour Morphine for pain control Lactic acid normal Status: Acute (2) Transaminitis: Ultrasound abdomen: Cholelithiasis without evidence for acute cholecystitis.Common bile duct is top normal size. No intrahepatic dilatation. AST ALT ALP is trending down. Monitor CMP Status: Acute (3) History of DVT (deep vein thrombosis): On xaralto 20 mg po daily Status: Acute (4) Malnutrition: Status: Acute (5) Chronic anticoagulation: Status: Acute Additional A&P Information Recurrent small bowel obstruction Patient is afebrile, normal lactic acid, does not have typical presentation of mesenteric ischemia/bowel ischemia We will follow up with another lactic acid in the morning, KUB She has high-grade SBO, serial abdominal exam and imaging Consider surgery consult in the morning Conservative management NG tube to suction For analgesia would use morphine, Hypotension most likely related to pain Start D5 normal saline maintenance fluid rate abnormal transaminases, procalcitonin 0.5, will request bladder ultrasound Patient is full code N.p.o. DVT prophylaxis SCDs in case she required any intervention would hold off on anticoagulation for now History of VRE: Bacteremia, fungemia: Status post antifungal and antibiotic regimen, Port-A-Cath has been removed, chronic hypoxic restaurant failure currently saturating well on 3 L nasal cannula which is her baseline requirement Attestations Medical Necessity Statement*: Patient needs to be in hospital for management of SBO. Coding Level of Care Code Acute [employer] Farm Management Adviser for [employer] Matthew Diagnoses Small bowel obstruction K56.609 Transaminitis R74.01 History of DVT (deep vein thrombosis) Z86.718 Malnutrition E46 Chronic anticoagulation Z79.01
[2021-07-31] MEDS: polyethylene glycol 3350 Pkt 17 gm PO (17:45)
[2021-07-31] MEDS: pregabalin 150 mg Capsule PO (20:25)
[2021-07-31] MEDS: trazodone 150 mg Tablet PO (21:31)
[2021-08-01] VITALS (13 sets, daily range): BP systolic 140–185; BP diastolic 74–98; PULSE 89–104; RESP 16–18; TEMP 36.7–37; O2SAT 95–98
[2021-08-01] MEDS: sodium chlor 0.9% + KCl 40 mEq 40 MEQ/1,000 ML BAG 75 MEQ IV (02:05)
[2021-08-01] MEDS: ondansetron 2 mg/ML SDV 2 mL 4 MG IVP (02:36)
[2021-08-01] MEDS: morphine 4 mg/mL SDV 1 mL 2 MG IVP ×3 (02:36→09:29)
[2021-08-01 05:57] LABS: Basophils % 0.7 %; Eosinophils % 1.4 %; Hematocrit 31.8 % (37.0-47.0); Hemoglobin 10.6 g/dL (11.5-15.3); Lymphocytes # 0.7 10^3/uL (0.8-4.8); Lymphocytes % 25.1 %; Mean Corpuscular HGB Conc 33.3 g/dL (30.0-36.0); Mean Corpuscular Hemoglobin 34.3 pg (28.0-34.0); Mean Corpuscular Volume 102.9 fl (81-99); Mean Platelet Volume 10.6 fL (7.4-10.4); Monocytes # 0.4 10^3/uL (0.2-0.9); Monocytes % 13.2 %; Neutrophils # 1.73 10^3/uL (1.8-7.7); Neutrophils % 58.6 %; Nucleated Red Blood Cells % 0 %; Platelet Count 156 10^3/cmm (130-400); Red Blood Count 3.09 10^6/uL (4.1-5.3); Red Cell Distribution Width 14.6 % (12.1-15.1)
[2021-08-01 06:19] LABS: Alanine Aminotransferase 139 U/L (0-33); Albumin Level 3.5 g/dL (3.5-5.2); Alkaline Phosphatase 140 IU/L (35-105); Anion Gap 11.7 (5-19); Aspartate Amino Transferase 50 U/L (0-32); Blood Urea Nitrogen 2 mg/dL (8-23); Calcium 8.8 mg/dL (8.5-10.5); Carbon Dioxide 30 mmol/L (22-29); Chloride 99 mmol/L (98-107); Globulin 2.6 g/dL (1.3-4.6); Glomerular Filtration Rate 124.6 mL/min (90-130); Glucose 79 mg/dL (65-115); Osmolality Calculated 279 mOsm/kg (285-295); Potassium 3.7 mmol/L (3.5-5.1); Sodium 137 mmol/L (136-145); Total Bilirubin 0.6 mg/dL (0.15-1.2); Total Protein 6.1 g/dL (6.6-8.7)
[2021-08-01] MEDS: rivaroxaban 10 mg Tablet 20 MG PO (08:51)
[2021-08-01] MEDS: levothyroxine 50 mcg Tablet PO (08:52)
[2021-08-01] MEDS: pregabalin 150 mg Capsule PO ×3 (08:52→20:13)
[2021-08-01] MEDS: venlafaxine ER (24HR) 150 mg Capsule PO (08:52)
[2021-08-01] MEDS: polyethylene glycol 3350 Pkt 17 gm PO ×2 (08:52→18:11)
[2021-08-01] MEDS: pantoprazole 40 mg SDV IVP (08:52)
[2021-08-01] MEDS: sennosides 8.6 mg Tablet PO (08:52)
[2021-08-01] MEDS: lactulose oral liq 20 gm/30 mL UDC 30 GM PO (11:43)
[2021-08-01] MEDS: oxyCODONE 5 mg IR Tab/Cap 20 MG PO ×2 (14:54→20:13)
--- NOTE | 2021-08-01 16:16 | PM.PN ---
Subjective Subjective: Interval history: Patient was seen and examined this morning, overall she is doing better, wants to try soft mechanical diet. Medications: Reviewed: Yes Vitals/I&O/Wt Last Vital Signs Temp 98.4 F 08/01/21 12:00 Pulse 98 08/01/21 12:00 Resp 18 08/01/21 14:54 BP 165/74 08/01/21 12:00 Pulse Ox 97 08/01/21 12:00 08/01/21 08/01/21 08/01/21 06:59 14:59 22:59 Intake Total 1303.75 / 3585.00 535 / 535 Output Total 1100 / 2300 Balance 203.75 / 1285.00 535 / 535 Physical Exam Const: COMMON NORMALS: patient oriented x3 HENMT: COMMON NORMALS: normocephalic and atraumatic HEAD & SCALP: normocephalic and atraumatic Resp: COMMON NORMALS: clear to auscultation bilaterally EFFORT & INSPECTION: Yes symmetric chest movement AUSCULTATION: clear to auscultation bilaterally Cardio: COMMON NORMALS: regular rate, regular rhythm, S1 normal heart sound present, S2 normal heart sound present, No gallops present (Cardio), No murmurs present (Cardio), No rub (Cardio) and Peripheral pulses 2+ throughout RATE: regular rate RHYTHM: regular rhythm HEART SOUNDS: S1 normal heart sound present and S2 normal heart sound present PERIPHERAL PULSES: Peripheral pulses 2+ throughout GI: COMMON NORMALS: Normal to inspection, nondistended, normoactive bowel sounds present and no masses AUSCULTATION: Yes normoactive bowel sounds RECTAL EXAM: deferred OTHER: Minimum right upper quadrant tenderness present, no guarding no rigidity, no rebound tenderness. Extremity: COMMON NORMALS: no clubbing, cyanosis or edema and no pedal edema Neuro: COMMON NORMALS: patient oriented x3 Data : 08/01/21 05:02 08/01/21 05:02 A&P Assessment and plan (1) Small bowel obstruction: On soft mechanical diet NG tube removed Initially on IV hydration: NS with 40 mEq of potassium at 75 cc an hour. Has been stopped Morphine for pain control Lactic acid normal Status: Acute (2) Transaminitis: Ultrasound abdomen: Cholelithiasis without evidence for acute cholecystitis.Common bile duct is top normal size. No intrahepatic dilatation. AST ALT ALP is trending down. Monitor CMP Status: Acute (3) History of DVT (deep vein thrombosis): On xaralto 20 mg po daily Status: Acute (4) Malnutrition: Status: Acute (5) Chronic anticoagulation: Status: Acute Additional A&P Information Recurrent small bowel obstruction Patient is afebrile, normal lactic acid, does not have typical presentation of mesenteric ischemia/bowel ischemia We will follow up with another lactic acid in the morning, KUB She has high-grade SBO, serial abdominal exam and imaging Consider surgery consult in the morning Conservative management NG tube to suction For analgesia would use morphine, Hypotension most likely related to pain Start D5 normal saline maintenance fluid rate abnormal transaminases, procalcitonin 0.5, will request bladder ultrasound Patient is full code N.p.o. DVT prophylaxis SCDs in case she required any intervention would hold off on anticoagulation for now History of VRE: Bacteremia, fungemia: Status post antifungal and antibiotic regimen, Port-A-Cath has been removed, chronic hypoxic restaurant failure currently saturating well on 3 L nasal cannula which is her baseline requirement Attestations Medical Necessity Statement*: Patient needs to be in hospital for management of small bowel obstruction. Coding Level of Care Code Acute Precinct Police Captain for Chg Fwd Diagnoses Small bowel obstruction K56.609 Transaminitis R74.01 History of DVT (deep vein thrombosis) Z86.718 Malnutrition E46 Chronic anticoagulation Z79.01
[2021-08-01] MEDS: trazodone 150 mg Tablet PO (20:13)
[2021-08-02] VITALS (8 sets, daily range): BP systolic 153–165; BP diastolic 81–89; PULSE 81–92; RESP 16–18; TEMP 36.7–36.9; O2SAT 96–99
[2021-08-02] MEDS: lactulose oral liq 20 gm/30 mL UDC 30 GM PO (07:46)
[2021-08-02] MEDS: polyethylene glycol 3350 Pkt 17 gm PO (07:46)
[2021-08-02] MEDS: levothyroxine 50 mcg Tablet PO (07:46)
[2021-08-02] MEDS: venlafaxine ER (24HR) 150 mg Capsule PO (07:46)
[2021-08-02] MEDS: pantoprazole 40 mg SDV IVP (07:47)
[2021-08-02] MEDS: pregabalin 150 mg Capsule PO (07:47)
[2021-08-02] MEDS: rivaroxaban 10 mg Tablet 20 MG PO (07:47)
[2021-08-02] MEDS: sennosides 8.6 mg Tablet PO (07:47)
[2021-08-02] MEDS: oxyCODONE 5 mg IR Tab/Cap 20 MG PO ×2 (07:59→13:38)
--- NOTE | 2021-08-05 10:24 | P.DS_ITS ---
Discharge Providers Date of Admission: 07/29/21 01:13 Date of Discharge: August 05, 2021 Attending Provider at Admission: Katerin Sebastian MD Attending Provider at Discharge: Krzysztof Moore MD Diagnoses at Discharge Discharge Diagnosis (1) Small bowel obstruction: (2) Transaminitis: (3) History of DVT (deep vein thrombosis): (4) Malnutrition: (5) Chronic anticoagulation: Reason for Visit Reason for Visit: ABD PAIN Hospital Course Hospital Course HPI : Nisreen Carrasco is a 61 year old female with past medical history of hypertension, hyperlipidemia, GERD, COPD 4 L oxygen requirement at baseline,, chronic anxiety/depression, recurrence of ovarian cancer, multiple abdominal surgery, abdominal radiation, multiple episodes of small bowel obstruction, right renal atrophy because of ureteral obstruction and hydronephrosis requiring right ureteral stent, progression of ovarian tumor, she was recently discharged from the hospital after prolonged hospitalization, surgery did recommend extensive debulking and additional lysis for her recurrent SBO presented today with chief complaint of abdominal pain nausea and vomiting. She was recommended SNF but patient denied and she was discharged home with Augmentin, fluconazole, linezolid, her hospitalization was complicated with VRE bacteremia and candidemia. EF 55 to 60%. Recent bronchoscopy, bronchial culture consistent with pansensitive E. coli likely secondary to recurrent episode of aspiration pneumonia. Patient is stating that at home she was on liquid diet however yesterday she tri ed to eat cheese sandwich and after that she started having abdominal pain, nausea, vomiting. In total she has had 3-4 episode of emesis, no fever shortness of breath or chest pain. Her last bowel movement was yesterday(regular, large bowel movement). She decided to come to the hospital today for worsening abdominal pain. Diagnosis in the ER revealed high-grade SBO NG tube was placed, at the time of my evaluation she was complaining of abdominal pain 4/10 systolic blood pressure 170 mm murmur. Hospital course : Patient was managed for SBO.She was managed conservatively initially kept NPO with N.G Tube to suction,I.V hydration, pain control,serial abdominal imaging studies,to which she responded well her abdominal pain had resolved at the time of discharge,she was tolerating diet well, had no nausea,vomiting,was having BMs.During the hospital stay she also had Transaminitis: Ultrasound abdomen: Cholelithiasis without evidence for acute cholecystitis.Common bile duct is top normal size. No intrahepatic dilatation.Serial CMP was trending down. For her H/O of DVT (deep vein thrombosis):She was continued on xaralto 20 mg po daily. There was also some concern regarding displacement of right ureteral stent based on the xray findings. CT abdomen pelvis w con:The proximal and of the ureteral stent is not significantly changed in position compared to multiple previous CT scans since May. The normal pigtail configuration of the proximal ureteral stent was changed in the interim from 12/10/2020 to 06/06/2021. The tip became lodged in the lower pole of the kidney and uncoiedl the pigtail configuration. Proximal end of the stent is well within the right kidney collecting system. The distal end of the ureteral stent varies greatly depending on the degree of fluid in the neobladder.Over time the configuration of the proximal right ureteral stent has changed however the stent is still in place for drainage. With no change in the degree of dilatation of the renal collecting system and the normal enhancement of the renal parenchyma of the right kidney the stent is assumed to be functioning. Patient responded well to the above medical management and was discharged in stable conditions to home.She will continue to follow her oncology as outpatient and is in search of a PCP.Her oncologist is helping her with that. Physical Exam Const: COMMON NORMALS: patient oriented x3 HENMT: COMMON NORMALS: normocephalic and atraumatic HEAD & SCALP: normocephalic and atraumatic Resp: COMMON NORMALS: clear to auscultation bilaterally EFFORT & INSPECTION: Yes symmetric chest movement AUSCULTATION: clear to auscultation bilaterally Cardio: COMMON NORMALS: regular rate, regular rhythm, S1 normal heart sound present, S2 normal heart sound present, No gallops present (Cardio), No murmurs present (Cardio), No rub (Cardio) and Peripheral pulses 2+ throughout RATE: regular rate RHYTHM: regular rhythm HEART SOUNDS: S1 normal heart sound present and S2 normal heart sound present PERIPHERAL PULSES: Peripheral pulses 2+ throughout GI: COMMON NORMALS: Normal to inspection, nondistended, normoactive bowel sounds present, Soft to palpation and no masses AUSCULTATION: Yes normoactive bowel sounds PALPATION: Yes Soft to palpation RECTAL EXAM: deferred Extremity: COMMON NORMALS: no clubbing, cyanosis or edema and no pedal edema Neuro: COMMON NORMALS: patient oriented x3 Discharge Data Data Completed and Pending: Completed Studies During Hospitalization Category Date Time Status CT abdomen pelvis w con* [id number] Rout ine Cat Scan 07/31/21 10:[address] abdomen pelvis w con* [id number] Urge nt Cat Scan 07/28/21 21:51 Completed XR KUB portable 7 4018 AM LABS Exams 07/29/21 06:00 Completed XR KUB portable 7 4018 Routine Exams 07/30/21 06:00 Completed XR chest 1V juan ble [id number] Stat Exams 07/29/21 00:53 Completed XR chest 1V juan ble [id number] Stat Exams 07/29/21 02:38 Completed US abdomen limite d [id number] Routine Ultrasound 07/30/21 06:00 Completed Vitals: Last Vital Signs Temp 98.5 F 08/02/21 11:18 Pulse 84 08/02/21 11:18 Resp 18 08/02/21 14:24 BP 160/86 08/02/21 11:18 Pulse Ox 98 08/02/21 11:18 Discharge Plan Discharge Patient Disposition: Home Health Service Condition: Stable Prescriptions: Continued esomeprazole magnesium [Nexium] 40 mg capsule,delayed release(DR/EC) 40 mg PO BID RF: 0 oxycodone 20 mg tablet 20 mg PO Q6H PRN (Reason: Pain) RF: 0 venlafaxine [Effexor XR] 150 mg capsule,extended release 24hr 150 mg PO DAILY RF: 0 levothyroxine [Synthroid] 50 mcg tablet 50 mcg PO DAILY RF: 0 Xarelto 20 mg tablet 20 mg PO DAILY RF: 0 Hold Instructions: Resume on 03/14/21. Resume normal dose on 03/14/2021 senna 8.6 mg Tablet 8.6 mg PO DAILY RF: 0 Lyrica 150 mg capsule 150 mg PO TID RF: 0 Vasotec 10 mg tablet 10 mg PO BID RF: 0 trazodone 150 mg Tablet 150 mg PO BEDTIME RF: 0 fentanyl 100 mcg/hr patch 72 hour 2 patch topical Q72H RF: 0 polyethylene glycol 3350 [Powderlax] 17 gram powder in packet 17 g PO BID 30 Days Qty: 100 RF: 0 Discharge Orders: Discharge Order (Routine); Ordered 08/02/21 Ordered By: Krzysztof Moore Referrals: Ravi Lynne MD [Hospitalist] - 08/05/21 9:00 am (Please call on Wednesday to schedule an appointment to be seen in one week.) Discharge Diet: Regular Discharge Activity: Resume usual activity Patient Instructions: Malnutrition (DC), Bowel Obstruction (DC), Opioid Safety Discharge Attestations Time Spent in Discharge Care*: less than 30 min Specific Discharge Activities: educating patient, educating and/or supporting family/caregiver, discussing with pcp/other providers, discussing with case making machine operator/social workers/dc planners, documenting/other paperwork and evaluating patient/reviewing data Status at Discharge: Cognitive status at discharge: cognitively intact , Behavioral status at discharge: cooperative , Quality Metrics Clinical Quality Measures During this hospital stay, did patient experience: None Coding Level of Care Code Acute Chg FW DC note Diagnoses Small bowel obstruction K56.609 Transaminitis R74.01 History of DVT (deep vein thrombosis) Z86.718 Malnutrition E46 Chronic anticoagulation Z79.01
== END 2021-08-02 14:25 | disposition home health service (06) | DRG 389 ==
LOC: ER 07-29 00:15 → MEDSURG 07-29 01:13
PROVIDERS: Admitting Provider Internal Medicine; Emergency Provider Emergency Medicine; Visit Provider Internal Medicine
DX: K56.609 Unspecified intestinal obstruction, unspecified as to partial versus complete obstruction (principal); E46 Unspecified protein-calorie malnutrition; Z68.1 Body mass index [BMI] 19.9 or less, adult; Z86.718 Personal history of other venous thrombosis and embolism; Z79.01 Long term (current) use of anticoagulants; R74.01 Elevation of levels of liver transaminase levels; I95.89 Other hypotension; E78.5 Hyperlipidemia, unspecified; K21.9 Gastro-esophageal reflux disease without esophagitis; J44.9 Chronic obstructive pulmonary disease, unspecified; Z99.81 Dependence on supplemental oxygen; F41.9 Anxiety disorder, unspecified; F32.A Depression, unspecified; Z85.43 Personal history of malignant neoplasm of ovary; F17.200 Nicotine dependence, unspecified, uncomplicated
CPT/HCPCS: 36415; 71045; 74018; 74177; 76705; 80053; 83605; 83690; 83735; 84145; 85025; 86140; 94640; 96361; 96374; 96375; 96376; 99285; C9113; J0360; J1170; J2060; J2270; J2405; J3480; J7030; Q9967

== ENCOUNTER 2021-08-05 06:38 | Outpatient (CLI) | payer MEDICARE, OTHER, SELFPAY ==
[2021-08-05 09:44] LABS: Basophils % 0.7 %; Eosinophils # 0.1 10^3/uL (0.0-0.8); Eosinophils % 1.7 %; Hematocrit 34.4 % (37.0-47.0); Hemoglobin 10.8 g/dL (11.5-15.3); Lymphocytes % 17.9 %; Mean Corpuscular HGB Conc 31.4 g/dL (30.0-36.0); Mean Corpuscular Hemoglobin 33.4 pg (28.0-34.0); Mean Corpuscular Volume 106.5 fl (81-99); Monocytes # 0.5 10^3/uL (0.2-0.9); Monocytes % 8.1 %; Neutrophils # 4.12 10^3/uL (1.8-7.7); Neutrophils % 70.7 %; Nucleated Red Blood Cells % 0 %; Platelet Count 178 10^3/cmm (130-400); Red Blood Count 3.23 10^6/uL (4.1-5.3); Red Cell Distribution Width 14.2 % (12.1-15.1); White Blood Count 5.8 10^3/uL (4.0-10.0)
[2021-08-05 10:39] LABS: Alanine Aminotransferase 39 U/L (0-33); Albumin Level 3.7 g/dL (3.5-5.2); Alkaline Phosphatase 105 IU/L (35-105); Anion Gap 10.5 (5-19); Aspartate Amino Transferase 16 U/L (0-32); Blood Urea Nitrogen 9 mg/dL (8-23); CA 125 25.2 U/mL (0-35); Calcium 8.9 mg/dL (8.5-10.5); Carbon Dioxide 31 mmol/L (22-29); Chloride 99 mmol/L (98-107); Globulin 2.7 g/dL (1.3-4.6); Glucose 115 mg/dL (65-115); Osmolality Calculated 284 mOsm/kg (285-295); Potassium 3.5 mmol/L (3.5-5.1); Sodium 137 mmol/L (136-145); Total Bilirubin 0.4 mg/dL (0.15-1.2); Total Protein 6.4 g/dL (6.6-8.7)
--- NOTE | 2021-08-09 09:49 | ONC FU_ITS ---
Dr. Lynne Patient Follow-Up Note Patient: Nisreen Carrasco V Unit #: [id number]: [id number] Dicatated By: Ravi Lynne M.D.Date of Visit:Aug 05, 2021 Onc Med Follow-up/Prog Note Chief Complaint: Ovarian cancer History of Present Illness: This is a 61 year-old woman with recurrent ovarian cancer. She had optimal resection with her initial surgery back in May 2003. She had documented recurrence in July 2008, nearly 5 years after completion of adjuvant chemotherapy with 6 cycles of carboplatin/Taxol. She was retreated at that time with carboplatin/Taxol chemotherapy, but in combination with Avastin. Treatment was stopped after 4 cycles because of worsening neuropathy, but she did have a very good clinical response with normalization of the CA-125 level. She was then followed on observation. She did well until July 2012 when she presented with small bowel obstruction. Her Ca-125 level at that point had not increased and the obstruction initially did improve with conservative management. Ultimately, though, she was confirmed to have disease recurrence in the abdomen. She underwent surgery at [facility] in October 2012. At laparotomy there were extensive adhesions in the abdomen, but there was recurrent tumor in the right mid abdomen and right upper quadrant. It was involving the cecum, the mesocolon, and the small bowel mesentery in a multiple twisted mass. There also was periaortic juanita involvement. She underwent right hemicolectomy and primary anastamosis of the bowel with complete resection of the mass. 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 She had gradual recovery from that procedure. In February 2013 she restarted chemotherapy with carboplatin in combination with gemcitabine. She experienced a significant hypersensitivity reaction to the carboplatin with the third cycle of treatment. She then continued chemotherapy with single agent gemcitabine. She experienced significant fatigue and myelosuppression with gemcitabine, even at a reduced dose level. She did not tolerate an attempt at dose escalation. She had some ongoing GI symptoms during this time, but no documented disease progression. She had a followup visit with Dr. David in January 2014. Her disease at that time appeared stable, and it was recommended that she stop chemotherapy again and just go back on observation. By May 2015 she was having significantly more abdominal pain and repeat CT abdomen/pelvis at that point was highly suspicious for recurrent metastatic disease at the site of the ileocolic anastomosis. That study showed no obvious metastatic involvement in the liver and no ascites. In June 2015 she restarted chemotherapy with weekly paclitaxel. She initially was tolerating it pretty well on a day 1/day 8 schedule every 3 weeks. She had presented at day 15 of her third cycle with severe abdominal pain and nausea. Repeat CT scan showed increasing soft tissue at the ileocolic anastomosis. There was a large amount of fecal material proximal to that site, and an area of stenosis was suspected. She did improve, though, with conservative management, and she subsequently was able to continue chemotherapy with weekly paclitaxel. As of November 2015 she had completed 7 cycles of treatment. Her chemotherapy was put on hold after her cycle 8 day 1 treatment due to diarrhea and increased abdominal pain. Abdominal x-rays showed just nonspecific gas pattern in the left abdomen. She had restaging CT abdomen/pelvis again on 01/13/2016. It showed no obstruction and no evidence of disease progression. There was no lymphadenopathy or ascites noted. Her symptoms had subsequently improved, and she did then proceed with her 9th cycle of chemotherapy. Beginning with cycle 10, I did have her change to a day 1/day 15 schedule. She had subsequently tolerated it much better. As of her follow-up visit on 08/06/2016, she appeared stable clinically, and at that point she continued with her 16th cycle of treatment. Her day 15 treatment with that cycle was not administered. She continued treatment with cycle 18 day 1 on 10/01/2016. On 10/06/2016 she was admitted to the hospital with pneumonia. CT pulmonary angiogram at that time showed no evidence of pulmonary emboli. There were widespread tree-in-bud pulmonary parenchymal nodularities and there was evidence of underlying chronic emphysema. There was new hilar or mediastinal lymphadenopathy noted, possibly reactive or neoplastic. Also noted was a superior segment left lower lobe pulmonary nodule measuring 8.4 mm. She did improve on antibiotic therapy, and she was discharged home on 10/10/2016. She had quit smoking just prior to the hospitalization. She did not receive day 15 treatment with that cycle. During subsequent follow-up, I opted to keep her chemotherapy on hold, as her disease had been very stable. Restaging CT scans of the chest, abdomen, and pelvis on 04/28/2017 showed resolved hilar and mediastinal adenopathy and resolved left lower lobe pulmonary nodule. There was stable appearance of the ileocolic anastomosis. There was no evidence of disease progression. Restaging CT scans of the chest, abdomen, and pelvis on 11/16/2018 showed unchanged medial middle lobe parenchymal opacity measuring 8-9 mm. Lingular and anterior left lower lobe subsegmental atelectasis and/or scarring also appeared unchanged. There was no evidence of disease progression in the chest, abdomen, or pelvis. In February 2019 she had presented with new onset of swelling in the right leg. Venous Doppler of the right leg on 03/09/2019 showed partially occlusive deep vein thrombosis of the superficial femoral vein with thrombus noted to extend into the greater saphenous vein. She began on anticoagulation with apixaban. Restaging CT scans on 03/22/2019 showed stable 8-9 mm pulmonary nodule in the right middle lobe. Right hilar and infrahilar hilar lymph nodes also appeared stable. Moderate right hydronephrosis with right ureterectasis appeared to be new. Slightly prominent right inguinal lymph nodes appeared unchanged. Overall, there was no evidence of disease progression in the chest, abdomen, or pelvis. She continued on observation/expectant management. Her other medical illnesses include hypertension, hypercholesterolemia and gastroesophageal reflux disease. She also has chronic obstructive pulmonary disease and she had a pretty severe episode of pneumonia in December 2008. She had stopped smoking following her hospitalization in September. 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 Other surgeries have been limited to tonsillectomy and tubal ligation. INTERIM HISTORY: In April 2019 a next generation sequencing study was performed on the specimen from her surgical resection in October 2012. It showed presence of a BRCA1 mutation, presumed to be somatic, as her original germline BRCA testing was negative. There were no other actionable mutations identified. Repeat CT abdomen/pelvis on 06/22/2019 showed enlarging soft tissue mass in the right side of the pelvis measuring 3.5 cm. This was noted to be in the area of surgical clips from her prior hysterectomy, and the appearance was felt to be consistent with local recurrence or metastatic adenopathy. The mass was noted to be adjacent to and possibly invading the psoas muscle. There was increasing hydronephrosis of the right kidney. She was referred to Dr. David. On 07/18/2019 she underwent exploratory laparotomy with extensive adhesive lysis and extensive retroperitoneal exploration and debulking of right pelvic/psoas muscle tumor. The tumor was noted to obstruct the right ureter, and the procedure included placement of a right ureteral stent. Pathology showed high-grade carcinoma which was PAX-8 and WT-1 positive. During follow-up she had ongoing problems with urinary tract infection and she continued to have significant pain in the right groin area and lower abdomen. Her repeat CT abdomen/pelvis on 12/12/2019 showed progression of a right pelvic mass compared to the June 2019 study. At that point it measured 5.8 x 3.8 x 6.5 cm and it was noted to encase the right ureter. It was inseparable from the distal small bowel loops and it was noted to abut the right L5-S1 disc space. There was interval placement of right ureteral stent with resolution of right hydronephrosis. With those findings and with the known BRCA mutation, she began a trial of therapy with olaparib 300 mg bid on 12/18/2019. As of her follow-up visit on 02/21/2020 she was still having significant pain in the right lower quadrant area and she also was reporting increased nausea and fatigue. There had been a significant decline in her CA 125 level. I had suspected that at least some of her symptoms were treatment related. She continued the olaparib, but with the dosage reduced to 200 mg twice daily. Subsequent to that visit she had 2 hospitalizations at [facility], only by 4 or 5 days. On both occasions she had bowel obstruction which was relieved with conservative management. I had seen her for a follow-up visit on 03/21/2020. She was beginning to feel better. There was further decline in the CA 125 level to 6.7 U/mL compared to 32.8 U/mL on 12/26/2019. Restaging CT of the abdomen/pelvis on 05/22/2020 showed resolution of the previously described right lower quadrant pelvic mass. A right double-J ureteral stent was noted to be in place. There was right renal cortical atrophy. There was no hydronephrosis. There was no adenopathy noted in the abdomen or pelvis. There was moderate constipation. She continued the olaparib at 200 [address] CT scans on 11/07/2020 showed new subsegmental atelectasis in the lingula and left lower lobe, but no change in an 8 mm right middle lobe pulmonary nodule or and a 9 mm right hilar lymph node. There was possible tumor recurrence noted in the right pelvis with a slightly lobulated soft tissue nodule measuring 2.4 cm adjacent to the ureteral stent and with possible invasion into the right psoas muscle. There were no other findings suspicious for disease progression. She continued treatment with olaparib 200 mg twice daily. On 12/10/2000 she was seen in the emergency room with abdominal pain. Her CT abdomen/pelvis showed interval moderate dilatation of multiple small bowel loops and prominent fluid distention of the stomach suggesting possible small bowel obstruction, though no obvious transition zone was evident. There was continued atrophy of the right kidney but interval worsening of mild right hydronephrosis. There was good positioning of the right ureteral stent. She then continued her treatment with olaparib. As of her follow-up visit in February 2021 she agreed to try increasing the dosage back up to 300 mg twice daily. At her follow-up visit in March, she was tolerating it with acceptable toxicity, and she continued the same treatment. On 06/29/2021 she was admitted to the hospital with pneumonia and acute hypoxic respiratory failure. At that time she had CT evidence of small bowel obstruction. She also had evidence of acute renal failure. Her blood cultures were positive for Enterococcus faecium vre and for yeast. She underwent removal of her Port-A-Cath venous access device. She did show recovery and she was discharged home on antibiotic coverage with Augmentin and linezolid, and she also continued treatment with fluconazole. On 07/13/2021 she presented to the emergency room with decreased mental status. Her CT abdomen/pelvis showed dilated small bowel suspicious for obstruction. She was transferred to the [facility] for admission. She was managed conservatively. On 07/29/2021 she was again admitted to the hospital with CT abdomen/pelvis showing multiple dilated small bowel loops consistent with small bowel obstruction. She improved with conservative treatment measures. She is seen now for a follow-up visit. She has not been feeling good. She is generally weak and she has very limited activity. ECOG score is 2. She has poor appetite and poor oral intake. She has not had fever. She sometimes has sweating at night. She is having a lot of pain, as her pain medication has been reduced because of her constipation. She currently is on a fentanyl patch at 50 mcg/h along with immediate release oxycodone 20 mg as needed. She has been managing her bowels with MiraLAX, senna, and lactulose. She says she has been blocked a lot. She has a lot of abdominal pain and generalized aching. She has shortness of breath, and she is on continuous oxygen. She does not complain of cough and she has not been having chest pain. She has abdominal pain and constipation, but no vomiting. Bladder function has been okay. She does not complain of headache or dizziness. Her neuropathy is the same. She is on venlafaxine for anxiety/depression. She says she has quit smoking. Medications: Duragesic-100 1 Patch(es) (of 100 mcg) Patch 72 Hr Transdermal q 3 days, Enalapril Maleate 1 (10 mg) Tablet Oral b.i.d., Levothroid 1 (50 mcg) Tablet Oral daily, Lyrica 1 Capsule (of 150 mg) Oral t.i.d., MiraLax Pack Oral daily, NexIUM 1 (40 mg) Capsule Delayed Release Oral b.i.d., OxyCODONE HCl 1 (20 mg) Tablet Oral q 4 hours PRN, Proventil HFA Aerosol, solution Inhalation PRN, Senna 1 Tablet (of 8.6 mg) Capsule Oral b.i.d., Soma 1 (350 mg) Tablet Oral t.i.d., TRAZADONE 1 (150 mg) Tablet Oral at bedtime, Venlafaxine HCl 1 (150 mg) Capsule SR 24 HR Oral daily, Xarelto 1 Tablet (of 10 mg) Oral daily, Zofran 1 Tablet (of 4 mg) Oral q 4 hours Allergies: Carboplatin Vital Signs: Performed on Aug 05, 2021 10:42 Height - 67.00 in Temperature - 97.5 F (LOW) Pulse - 97 /min Respiration - 18 /min BP - 127/87 mm(hg) O2 Sat - 96 % Pain - 8 Fatigue - 9 Physical Examination: Constitutional - She appears generally weak and chronically ill, Eyes - Sclerae nonicteric. Conjunctivae clear, ENMT - Mouth is dry. There are no lesions noted in the oral cavity, Hematologic/Lymphatic - No cervical, clavicular, or axillary adenopathy, Respiratory - Lungs sound clear with diminished air movement bilaterally, Cardiovascular - Heart rhythm is regular. There is no murmur, gallop, or rub noted, Abdomen - Generally tender, more on the right side. Liver and spleen are not enlarged. There is no abdominal mass noted and there is no obvious ascites. There is no inguinal adenopathy, Extremities - No edema, Neurologic - No focal neurologic deficits noted. Problem List: 1. Recurrent ovarian cancer. By next generation sequencing her tumor was noted to harbor a BRCA1 mutation, presumed somatic, as her original testing for germline BRCA was negative. Her tumor also was tested and found to be MSI stable with intact mismatch repair proteins. 2. She had optimal debulking following initial diagnosis in May 2003, and she received adjuvant chemotherapy with 6 cycles of carboplatin/paclitaxel. 3. She had further treatment with 4 cycles of carboplatin/paclitaxel in combination with Avastin following documented recurrence in July 2008. 4. She had restarted chemotherapy with carboplatin/gemcitabine in February 2013 following a surgical debulking procedure for disease progression with associated bowel obstruction. Her treatment was subsequently modified to single agent gemcitabine as a result of a hypersensitivity reaction to carboplatin. She had some response to the chemotherapy. As of January 2014 her disease was felt to be stable, and she was then observed off treatment. 5.. In May 2015 she restarted chemotherapy with weekly paclitaxel. Following her cycle 18 treatment on 09/17/2016 she had another hospital admission for pneumonia. As her disease had been stable and her performance status had been declining, her chemotherapy at that point was put on hold. 6. In December 2019 she began further treatment with olaparib after she was confirmed to have disease progression in the right pelvis with associated right hydronephrosis. Her other medical illnesses include: 7. Hypertension. 8. Hyperlipidemia. 9. GERD. 10. COPD. 11. Degenerative disease of the spine with chronic back pain. 12. Chronic anxiety/depression. Problems Addressed with this Encounter and Plan: 1. Recurrent ovarian cancer. In November 2019 she had evidence of disease progression with CT evidence of right pelvic mass with ureteral obstruction and hydronephrosis, requiring placement of right ureteral stent. In December 2019 she began a trial of therapy with olaparib, initially at 300 mg twice daily. She did show a very good response by follow-up CT scan and by CA-125 level, but she subsequently did require a dose reduction to 200 mg twice daily. Her further clinical course has been very complicated. In June she had a hospital admission for pneumonia/acute respiratory failure. Blood cultures were positive for Enterococcus and for yeast. She underwent removal of her Port-A-Cath venous access device. She did recover, but during subsequent follow-up she had 3 further hospital admissions for small bowel obstruction. These have been managed conservatively. At this point it is uncertain to what extent the small bowel obstruction may be due to progression of the ovarian cancer or to adhesions/benign pathology. However, her overall clinical status is poor and she would be a high risk surgical candidate due to her underlying lung disease. In addition, further options for treatment of her ovarian cancer are limited. She potentially could still benefit with olaparib, though with some risk that it could be contributing to her respiratory infection. The other consideration would be a trial of immunotherapy, but with associated risk of pneumonitis, which in her case would be potentially disastrous. At least for now I will just recheck her laboratory studies and I will consider further treatment depending on those results. 2. 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 She continues symptomatic management. 3. She has severe underlying COPD. She is on continuous oxygen. Signed By: Ravi Lynne M.D. <<Signature on File>>
== END 2021-08-05 06:39 | disposition home or self-care (01) ==
LOC: ONCMED 06:38
PROVIDERS: Visit Provider Internal Medicine Medical Oncology
DX: C56.1 Malignant neoplasm of right ovary (principal); C79.89 Secondary malignant neoplasm of other specified sites; D50.9 Iron deficiency anemia, unspecified; F32.9 Major depressive disorder, single episode, unspecified; D69.49 Other primary thrombocytopenia; G60.9 Hereditary and idiopathic neuropathy, unspecified; E03.9 Hypothyroidism, unspecified; J44.9 Chronic obstructive pulmonary disease, unspecified; E78.00 Pure hypercholesterolemia, unspecified; F41.9 Anxiety disorder, unspecified; I10 Essential (primary) hypertension; K21.9 Gastro-esophageal reflux disease without esophagitis; Z79.899 Other long term (current) drug therapy
CPT/HCPCS: 36415; 80053; 85025; 86304; 99215

== ENCOUNTER 2021-09-03 11:47 | Outpatient (CLI) | payer MEDICARE, OTHER, SELFPAY ==
[2021-09-03 12:20] LABS: Basophils % 0.9 %; Eosinophils # 0.1 10^3/uL (0.0-0.8); Eosinophils % 3.3 %; Hematocrit 36.8 % (37.0-47.0); Hemoglobin 11.9 g/dL (11.5-15.3); Lymphocytes % 23.9 %; Mean Corpuscular HGB Conc 32.3 g/dL (30.0-36.0); Mean Corpuscular Hemoglobin 32.3 pg (28.0-34.0); Mean Platelet Volume 9.7 fL (7.4-10.4); Monocytes # 0.5 10^3/uL (0.2-0.9); Neutrophils # 2.58 10^3/uL (1.8-7.7); Neutrophils % 60.7 %; Nucleated Red Blood Cells % 0.5 %; Platelet Count 148 10^3/cmm (130-400); Red Blood Count 3.68 10^6/uL (4.1-5.3); Red Cell Distribution Width 13.4 % (12.1-15.1); White Blood Count 4.3 10^3/uL (4.0-10.0)
[2021-09-03 13:01] LABS: Alanine Aminotransferase 8 U/L (0-33); Albumin Level 4.2 g/dL (3.5-5.2); Alkaline Phosphatase 75 IU/L (35-105); Anion Gap 11.6 (5-19); Aspartate Amino Transferase 14 U/L (0-32); Blood Urea Nitrogen 9 mg/dL (8-23); CA 125 19.3 U/mL (0-35); Calcium 8.9 mg/dL (8.5-10.5); Carbon Dioxide 33 mmol/L (22-29); Chloride 89 mmol/L (98-107); Globulin 3.1 g/dL (1.3-4.6); Glucose 92 mg/dL (65-115); Osmolality Calculated 266 mOsm/kg (285-295); Potassium 4.6 mmol/L (3.5-5.1); Sodium 129 mmol/L (136-145); Total Bilirubin 0.4 mg/dL (0.15-1.2); Total Protein 7.3 g/dL (6.6-8.7)
--- NOTE | 2021-09-06 16:21 | ONC FU_ITS ---
Dr. Lynne Patient Follow-Up Note Patient: Nisreen Carrasco V Unit #: [id number]: [id number] Dicatated By: Ravi Lynne M.D.Date of Visit:Sep 03, 2021 Onc Med Follow-up/Prog Note Chief Complaint: Ovarian cancer History of Present Illness: This is a 61 year-old woman with recurrent ovarian cancer. She had optimal resection with her initial surgery back in May 2003. She had documented recurrence in July 2008, nearly 5 years after completion of adjuvant chemotherapy with 6 cycles of carboplatin/Taxol. She was retreated at that time with carboplatin/Taxol chemotherapy, but in combination with Avastin. Treatment was stopped after 4 cycles because of worsening neuropathy, but she did have a very good clinical response with normalization of the CA-125 level. She was then followed on observation. She did well until July 2012 when she presented with small bowel obstruction. Her Ca-125 level at that point had not increased and the obstruction initially did improve with conservative management. Ultimately, though, she was confirmed to have disease recurrence in the abdomen. She underwent surgery at [facility] in October 2012. At laparotomy there were extensive adhesions in the abdomen, but there was recurrent tumor in the right mid abdomen and right upper quadrant. It was involving the cecum, the mesocolon, and the small bowel mesentery in a multiple twisted mass. There also was periaortic juanita involvement. She underwent right hemicolectomy and primary anastamosis of the bowel with complete resection of the mass. 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 She had gradual recovery from that procedure. In February 2013 she restarted chemotherapy with carboplatin in combination with gemcitabine. She experienced a significant hypersensitivity reaction to the carboplatin with the third cycle of treatment. She then continued chemotherapy with single agent gemcitabine. She experienced significant fatigue and myelosuppression with gemcitabine, even at a reduced dose level. She did not tolerate an attempt at dose escalation. She had some ongoing GI symptoms during this time, but no documented disease progression. She had a followup visit with Dr. David in January 2014. Her disease at that time appeared stable, and it was recommended that she stop chemotherapy again and just go back on observation. By May 2015 she was having significantly more abdominal pain and repeat CT abdomen/pelvis at that point was highly suspicious for recurrent metastatic disease at the site of the ileocolic anastomosis. That study showed no obvious metastatic involvement in the liver and no ascites. In June 2015 she restarted chemotherapy with weekly paclitaxel. She initially was tolerating it pretty well on a day 1/day 8 schedule every 3 weeks. She had presented at day 15 of her third cycle with severe abdominal pain and nausea. Repeat CT scan showed increasing soft tissue at the ileocolic anastomosis. There was a large amount of fecal material proximal to that site, and an area of stenosis was suspected. She did improve, though, with conservative management, and she subsequently was able to continue chemotherapy with weekly paclitaxel. As of November 2015 she had completed 7 cycles of treatment. Her chemotherapy was put on hold after her cycle 8 day 1 treatment due to diarrhea and increased abdominal pain. Abdominal x-rays showed just nonspecific gas pattern in the left abdomen. She had restaging CT abdomen/pelvis again on 01/13/2016. It showed no obstruction and no evidence of disease progression. There was no lymphadenopathy or ascites noted. Her symptoms had subsequently improved, and she did then proceed with her 9th cycle of chemotherapy. Beginning with cycle 10, I did have her change to a day 1/day 15 schedule. She had subsequently tolerated it much better. As of her follow-up visit on 08/06/2016, she appeared stable clinically, and at that point she continued with her 16th cycle of treatment. Her day 15 treatment with that cycle was not administered. She continued treatment with cycle 18 day 1 on 10/01/2016. On 10/06/2016 she was admitted to the hospital with pneumonia. CT pulmonary angiogram at that time showed no evidence of pulmonary emboli. There were widespread tree-in-bud pulmonary parenchymal nodularities and there was evidence of underlying chronic emphysema. There was new hilar or mediastinal lymphadenopathy noted, possibly reactive or neoplastic. Also noted was a superior segment left lower lobe pulmonary nodule measuring 8.4 mm. She did improve on antibiotic therapy, and she was discharged home on 10/10/2016. She had quit smoking just prior to the hospitalization. She did not receive day 15 treatment with that cycle. During subsequent follow-up, I opted to keep her chemotherapy on hold, as her disease had been very stable. Restaging CT scans of the chest, abdomen, and pelvis on 04/28/2017 showed resolved hilar and mediastinal adenopathy and resolved left lower lobe pulmonary nodule. There was stable appearance of the ileocolic anastomosis. There was no evidence of disease progression. Restaging CT scans of the chest, abdomen, and pelvis on 11/16/2018 showed unchanged medial middle lobe parenchymal opacity measuring 8-9 mm. Lingular and anterior left lower lobe subsegmental atelectasis and/or scarring also appeared unchanged. There was no evidence of disease progression in the chest, abdomen, or pelvis. In February 2019 she had presented with new onset of swelling in the right leg. Venous Doppler of the right leg on 03/09/2019 showed partially occlusive deep vein thrombosis of the superficial femoral vein with thrombus noted to extend into the greater saphenous vein. She began on anticoagulation with apixaban. Restaging CT scans on 03/22/2019 showed stable 8-9 mm pulmonary nodule in the right middle lobe. Right hilar and infrahilar hilar lymph nodes also appeared stable. Moderate right hydronephrosis with right ureterectasis appeared to be new. Slightly prominent right inguinal lymph nodes appeared unchanged. Overall, there was no evidence of disease progression in the chest, abdomen, or pelvis. She continued on observation/expectant management. Her other medical illnesses include hypertension, hypercholesterolemia and gastroesophageal reflux disease. She also has chronic obstructive pulmonary disease and she had a pretty severe episode of pneumonia in December 2008. She had stopped smoking following her hospitalization in September. 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 Other surgeries have been limited to tonsillectomy and tubal ligation. INTERIM HISTORY: In April 2019 a next generation sequencing study was performed on the specimen from her surgical resection in October 2012. It showed presence of a BRCA1 mutation, presumed to be somatic, as her original germline BRCA testing was negative. There were no other actionable mutations identified. Repeat CT abdomen/pelvis on 06/22/2019 showed enlarging soft tissue mass in the right side of the pelvis measuring 3.5 cm. This was noted to be in the area of surgical clips from her prior hysterectomy, and the appearance was felt to be consistent with local recurrence or metastatic adenopathy. The mass was noted to be adjacent to and possibly invading the psoas muscle. There was increasing hydronephrosis of the right kidney. She was referred to Dr. David. On 07/18/2019 she underwent exploratory laparotomy with extensive adhesive lysis and extensive retroperitoneal exploration and debulking of right pelvic/psoas muscle tumor. The tumor was noted to obstruct the right ureter, and the procedure included placement of a right ureteral stent. Pathology showed high-grade carcinoma which was PAX-8 and WT-1 positive. During follow-up she had ongoing problems with urinary tract infection and she continued to have significant pain in the right groin area and lower abdomen. Her repeat CT abdomen/pelvis on 12/12/2019 showed progression of a right pelvic mass compared to the June 2019 study. At that point it measured 5.8 x 3.8 x 6.5 cm and it was noted to encase the right ureter. It was inseparable from the distal small bowel loops and it was noted to abut the right L5-S1 disc space. There was interval placement of right ureteral stent with resolution of right hydronephrosis. With those findings and with the known BRCA mutation, she began a trial of therapy with olaparib 300 mg bid on 12/18/2019. As of her follow-up visit on 02/21/2020 she was still having significant pain in the right lower quadrant area and she also was reporting increased nausea and fatigue. There had been a significant decline in her CA 125 level. I had suspected that at least some of her symptoms were treatment related. She continued the olaparib, but with the dosage reduced to 200 mg twice daily. Subsequent to that visit she had 2 hospitalizations at [facility], only by 4 or 5 days. On both occasions she had bowel obstruction which was relieved with conservative management. I had seen her for a follow-up visit on 03/21/2020. She was beginning to feel better. There was further decline in the CA 125 level to 6.7 U/mL compared to 32.8 U/mL on 12/26/2019. Restaging CT of the abdomen/pelvis on 05/22/2020 showed resolution of the previously described right lower quadrant pelvic mass. A right double-J ureteral stent was noted to be in place. There was right renal cortical atrophy. There was no hydronephrosis. There was no adenopathy noted in the abdomen or pelvis. There was moderate constipation. She continued the olaparib at 200 mg [address] CT scans on 11/07/2020 showed new subsegmental atelectasis in the lingula and left lower lobe, but no change in an 8 mm right middle lobe pulmonary nodule or and a 9 mm right hilar lymph node. There was possible tumor recurrence noted in the right pelvis with a slightly lobulated soft tissue nodule measuring 2.4 cm adjacent to the ureteral stent and with possible invasion into the right psoas muscle. There were no other findings suspicious for disease progression. She continued treatment with olaparib 200 mg twice daily. On 12/10/2000 she was seen in the emergency room with abdominal pain. Her CT abdomen/pelvis showed interval moderate dilatation of multiple small bowel loops and prominent fluid distention of the stomach suggesting possible small bowel obstruction, though no obvious transition zone was evident. There was continued atrophy of the right kidney but interval worsening of mild right hydronephrosis. There was good positioning of the right ureteral stent. She then continued her treatment with olaparib. As of her follow-up visit in February 2021 she agreed to try increasing the dosage back up to 300 mg twice daily. At her follow-up visit in March, she was tolerating it with acceptable toxicity, and she continued the same treatment. On 06/29/2021 she was admitted to the hospital with pneumonia and acute hypoxic respiratory failure. At that time she had CT evidence of small bowel obstruction. She also had evidence of acute renal failure. Her blood cultures were positive for Enterococcus faecium vre and for yeast. She underwent removal of her Port-A-Cath venous access device. She did show recovery and she was discharged home on antibiotic coverage with Augmentin and linezolid, and she also continued treatment with fluconazole. On 07/13/2021 she presented to the emergency room with decreased mental status. Her CT abdomen/pelvis showed dilated small bowel suspicious for obstruction. She was transferred to the [facility] for admission. She was managed conservatively. On 07/29/2021 she was again admitted to the hospital with CT abdomen/pelvis showing multiple dilated small bowel loops consistent with small bowel obstruction. She improved with conservative treatment measures. She was seen for follow-up on August 05, 2021. At that point she continued to have relatively poor performance status, but she had been able to keep her bowels moving with a combination of MiraLAX, senna, and lactulose. With limited treatment options available, she opted to restart olaparib 300 mg twice daily. She is seen for a scheduled visit. She has noted some decline in her energy/activity tolerance since she restarted the olaparib. She is still ambulatory. ECOG score is 2. Her appetite is just fair. She complains that her abdominal pain is constant. It is worse on the right side and it tends to radiate around to the back and down the right leg. Her bowels have been moving about every day with her same bowel regimen. She has not had fever. She does have hot flashes and sweating. She has just a little bit of cough. She says her breathing has been okay, but she is on continuous oxygen she does have limited activity. She does not complain of chest pain. She has not had nausea/vomiting, and her acid reflux is adequately managed with Nexium. Bladder function remains adequate. She has chronic back pain and chronic neuropathy pain, all of which is about the same. Medications: Duragesic-100 1 Patch(es) (of 100 mcg) Patch 72 Hr Transdermal q 3 days, Enalapril Maleate 1 (10 mg) Tablet Oral b.i.d., Levothroid 1 (50 mcg) Tablet Oral daily, Lyrica 1 Capsule (of 150 mg) Oral t.i.d., MiraLax Pack Oral daily, NexIUM 1 (40 mg) Capsule Delayed Release Oral b.i.d., OxyCODONE HCl 1 (20 mg) Tablet Oral q 4 hours PRN, Proventil HFA Aerosol, solution Inhalation PRN, Senna 1 Tablet (of 8.6 mg) Capsule Oral b.i.d., Soma 1 (350 mg) Tablet Oral t.i.d., TRAZADONE 1 (150 mg) Tablet Oral at bedtime, Venlafaxine HCl 1 (150 mg) Capsule SR 24 HR Oral daily, Xarelto 1 Tablet (of 10 mg) Oral daily, Zofran 1 Tablet (of 4 mg) Oral q 4 hours Allergies: Carboplatin Vital Signs: Performed on Sep 03, 2021 13:45 Height - 67.00 in Temperature - 97.4 F (LOW) Pulse - 86 /min Respiration - 18 /min BP - 126/87 mm(hg) O2 Sat - 98 % Pain - 7 Fatigue - 8 Physical Examination: Constitutional - She appears generally weak and chronically ill, Eyes - Sclerae nonicteric. Conjunctivae clear, ENMT - No lesions noted in the oral cavity, Hematologic/Lymphatic - No cervical, clavicular, or axillary adenopathy, Respiratory - Lungs show diminished air movement with scattered rales bilaterally, Cardiovascular - Heart rhythm is regular. There is no murmur, gallop, or rub noted, Abdomen - Mildly distended. There is generalized abdominal tenderness, but significantly worse on the right side. Liver and spleen are not enlarged. There is no abdominal mass noted and there is no obvious ascites. There is no inguinal adenopathy, Extremities - No edema, Neurologic - No focal neurologic deficits noted. Lab/Imaging: Test performed on Sep 03, 2021 12:00 Sodium 129 mmol/L Potassium 4.6 mmol/L Chloride 89 mmol/L CO2 33 mmol/L Anion Gap 11.6 BUN 9 mg/dL Creatinine 0.6 mg/dL Cr Clearance (Est) 86.5900 mL/min eGFR 101.0 mL/min Glucose 92 mg/dL Osmolality - Calculated 266 mOsm/kg Calcium 8.9 mg/dL Protein, Total 7.3 g/dL Albumin 4.2 g/dL Globulin 3.1 g/dL Bilirubin, Total 0.4 mg/dL ALT (SGPT) 8 U/L AST (SGOT) 14 U/L Alkaline Phosphatase 75 IU/L WBC 4.3 10 3/uL RBC 3.68 10 6/uL HGB 11.9 g/dL HCT 36.8 % MCV 100.0 fl MCH 32.3 pg MCHC 32.3 g/dL RDW 13.4 % Platelet Count 148 10 3/cmm MPV 9.7 fL Neutrophils 2.58 10 3/uL Lymphocytes 1.0 10 3/uL Monocytes 0.5 10 3/uL Eosinophils 0.1 10 3/uL Basophils 0.0 10 3/uL Neutrophil % 60.7 % Lymphocyte % 23.9 % Monocyte % 11.0 % Eosinophil % 3.3 % Basophils % 0.9 % NRBC % 0.5 % CA-125 19.3 U/mL Problem List: 1. Recurrent ovarian cancer. By next generation sequencing her tumor was noted to harbor a BRCA1 mutation, presumed somatic, as her original testing for germline BRCA was negative. Her tumor also was tested and found to be MSI stable with intact mismatch repair proteins. 2. Hypertension. 3. Hyperlipidemia. 4. GERD. 5. COPD with recurrent episodes of pneumonia. 6. Degenerative disease of the spine with chronic back pain. 7. Chronic anxiety/depression. Problems Addressed with this Encounter and Plan: 1. Patient with recurrent ovarian cancer. She had optimal debulking following initial diagnosis in May 2003, and she received adjuvant chemotherapy with 6 cycles of carboplatin/paclitaxel. She had further treatment with 4 cycles of carboplatin/paclitaxel in combination with Avastin following documented recurrence in July 2008. She had restarted chemotherapy with carboplatin/gemcitabine in February 2013 following a surgical debulking procedure for disease progression with associated bowel obstruction. Her treatment was subsequently modified to single agent gemcitabine as a result of a hypersensitivity reaction to carboplatin. She had some response to the chemotherapy. As of January 2014 her disease was felt to be stable, and she was then observed off treatment. In May 2015 she restarted chemotherapy with weekly paclitaxel. Following her cycle 18 treatment on 09/17/2016 she had another hospital admission for pneumonia. As her disease had been stable and her performance status had been declining, her chemotherapy at that point was put on hold. During followup she had further evaluation by next generation sequencing, and her tumor was noted to harbor a BRCA1 mutation. It was presumed to be somatic, as her original testing for germline BRCA was negative. Her tumor also was tested and found to be MSI stable with intact mismatch repair proteins. In November 2019 she had evidence of disease progression with CT evidence of right pelvic mass with ureteral obstruction and hydronephrosis, requiring placement of right ureteral stent. In December 2019 she began a trial of therapy with olaparib, initially at 300 mg twice daily. She did show a very good response by follow-up CT scan and by CA-125 level, but she subsequently did require a dose reduction to 200 mg twice daily. In June she had a hospital admission for pneumonia/acute respiratory failure. Blood cultures were positive for Enterococcus and for yeast. She underwent removal of her Port-A-Cath venous access device. She did recover, but during subsequent follow-up she had 3 further hospital admissions for small bowel obstruction, all managed conservatively. She was seen for follow-up on 07/30/2021, and with limited treatment options available, she opted to restart olaparib at 300 mg twice daily. She has since then continued to have very marginal performance status. She has had ongoing issues with abdominal pain as well as chronic neuropathy pain, management of which has been problematic due to potential opiate associated side effects, including constipation and respiratory depression. At least for now she will continue the olaparib at 300 mg twice daily, but she will be scheduled for restaging CT scans of the chest, abdomen, and pelvis. She will have further evaluation as indicated. 2. She has a right ureteral stent in place, and I will verify follow-up with Dr. Cooper. 3. She has severe underlying COPD and she has had recurrent episodes of pneumonia/respiratory failure. . Signed By: Ravi Lynne M.D. <<Signature on File>>
== END 2021-09-03 11:48 | disposition home or self-care (01) ==
LOC: ONCMED 11:47
PROVIDERS: Visit Provider Internal Medicine Medical Oncology
DX: C56.9 Malignant neoplasm of unspecified ovary (principal); I10 Essential (primary) hypertension; E78.5 Hyperlipidemia, unspecified; K21.9 Gastro-esophageal reflux disease without esophagitis; J44.9 Chronic obstructive pulmonary disease, unspecified; J18.9 Pneumonia, unspecified organism; M54.50 Low back pain, unspecified; G89.29 Other chronic pain; F41.9 Anxiety disorder, unspecified; F32.9 Major depressive disorder, single episode, unspecified; Z79.899 Other long term (current) drug therapy; Z92.21 Personal history of antineoplastic chemotherapy
CPT/HCPCS: 36415; 80053; 85025; 86304; 99214

== ENCOUNTER 2021-09-06 20:40 | Inpatient (IN) | payer MEDICARE, OTHER, SELFPAY ==
--- NOTE | 2021-09-06 20:46 | CTR_ITS ---
PROCEDURE INFORMATION: Exam: CT Abdomen And Pelvis With Contrast Exam date and time: 09/06/2021 8:46 PM Age: 61 years old Clinical indication: Abdominal pain; Generalized; Prior surgery; Surgery date: 6+ months; Surgery type: Hyst, hemicolectomy; Patient HX: C/O abd pain w n/v TECHNIQUE: Imaging protocol: Computed tomography of the abdomen and pelvis with contrast. Radiation optimization: All CT scans at this facility use at least one of these dose optimization techniques: automated exposure control; mA and/or kV adjustment per patient size (includes targeted exams where dose is matched to clinical indication); or iterative reconstruction. Contrast material: OMNI 300; Contrast volume: 75 ml; Contrast route: INTRAVENOUS (IV); COMPARISON: CT abdomen pelvis w con* [id number] 07/31/2021 12:21 PM RADIATION DOSE METRICS: Total DLP (mGy-cm): 661.9 FINDINGS: Lungs: Mild diffuse reticular interstitial lung changes. Liver: Normal. No mass. Gallbladder and bile ducts: Normal. No calcified stones. No ductal dilation. Pancreas: Normal. No ductal dilation. Spleen: Normal. No splenomegaly. Adrenal glands: Normal. No mass. Kidneys and ureters: Severe parenchymal atrophy of right kidney. Right internal ureteral stent in place. Negative for hydronephrosis. Stomach and bowel: Stomach is dilated without wall thickening. Multiple dilated bowel loops with air-fluid levels. Small bowel dilated up to least 4 cm diameter. Distal small bowel loops are collapsed in the right lower quadrant. Appendix: No evidence of appendicitis. Intraperitoneal space: Small volume simple free fluid. Negative for pneumoperitoneum. Retroperitoneal space: Numerous surgical clips in the retroperitoneum. Vasculature: Circumferential atherosclerotic plaques of abdominal aorta. Negative for aneurysm. Lymph nodes: Unremarkable. No enlarged lymph nodes. Urinary bladder: Unremarkable as visualized. Reproductive: Hysterectomy. Bones/joints: Unremarkable. No acute fracture. Soft tissues: Unremarkable. CT/CT abdomen pelvis w con* [id number] IMPRESSION: Small-bowel obstruction suspected. Probable transition point in the right lateral abdomen but the exact site of transition difficult to distinctly define. Radiation Dose CTDIVOL = (mGy): DLP = 661.9 (mGy-cm)
--- NOTE | 2021-09-06 20:49 | W.ED.NAVMDI ---
HPI - Nausea/Vomiting/Diarrhea General: Chief complaint: Abdominal Pain Stated complaint: ABDOMINAL PAIN/ N/V Time Seen by Provider: 09/06/21 20:45 Source: patient and EMS Mode of arrival: EMS Limitations: no limitations History of Present Illness: HPI Narrative: Has a history of ovarian cancer states that she also has history of bowel obstructions from her cancer. States that today started having abdominal pain and then vomiting. States actually since she vomited her pain is improved her last bowel movement was yesterday. Denies any fever states the pain is currently sharp confusion rates it a 5 out of 10. Denies any dysuria denies any sick contacts. Associated nausea: Yes Associated symtoms: Reports nausea; Denies chest pain, dysuria or headache(s) Review of Systems Const: Denies: fever(s), chills, body aches or change in appetite Eyes: Denies: blurry vision or eye discomfort ENMT: Denies: throat pain or dental pain Card: Denies: chest pain Resp: Denies: dyspnea GI: Reports: abdominal pain, nausea and vomiting : Denies: dysuria Musc: Denies: neck pain or back pain Skin/Breast: Denies: rash Neuro: Denies: headache(s) Psych: Denies: depression Kashif/Lymph: Denies: easy bruising All/Imm: Denies: urticaria PFSH ED PFSH: Medical History (Updated 09/06/21 @ 21:41 by Isabelle Choi MD) Bacteremia Chronic anticoagulation COPD (chronic obstructive pulmonary disease) COPD exacerbation Extrinsic ureteral obstruction Fungemia History of DVT (deep vein thrombosis) Hydronephrosis, right Hypoxia Malnutrition Multifocal pneumonia Ovarian cancer on right Pelvic pain in female Recurrent UTI Renal failure Secondary malignant neoplasm of other specified sites Small bowel obstruction Small bowel obstruction Transaminitis VRE bacteremia Surgical History History of hysterectomy with bilateral oophorectomy History of right hemicolectomy S/P ureteral stent placement Family History Mother , at age 59 Cancer breast Myocardial infarction (lateral wall) Father Cancer prostate cancer Pacemaker Other CAD (coronary artery disease) Hypertension Social History Smoking and tobacco status: current every day smoker Alcohol intake: never Adopted: No Caregiver/support person: No Lives independently: No Household members: spouse Marital status: Current occupational status: disabled History of recent travel: No Female Reproductive History: Date of last menstrual period: 12/01/19 Course Vital Signs: Vital signs: Vital Signs Temperature 99.0 F 09/06/21 21:05 Pulse Rate 89 09/06/21 21:05 Respiratory Rate 18 09/06/21 21:05 Blood Pressure 172/95 09/06/21 21:05 Pulse Oximetry 96 09/06/21 21:05 MDM - Nausea/Vomiting/Diarrhea MDM Narrative: Medical decision making narrative: Patient presents here with small bowel obstruction. Patient been seen by hospitalist in the ER and will admit for small bowel obstruction. Her small bowel obstructions likely caused from her tumor. She has no signs of perforation. Lab Data: Labs: Lab Results 09/06/21 09/06/21 20:52 20:52 WBC 8.8 10^3/uL 10^3/ uL (4.0-10.0) RBC 4.81 10^6/uL 10^6 /uL (4.1-5.3) Hgb 15.6 g/dL H g/dL (11.5-15.3) Hct 46.6 % % (37.0-47.0) MCV 96.9 fl fl (81-99) MCH 32.4 pg pg (28.0-34.0) MCHC 33.5 g/dL g/dL (30.0-36.0) RDW 13.6 % % (12.1-15.1) Plt Count 170 10^3/cmm 10^3 /cmm (130-400) MPV 10.0 fL fL (7.4-10.4) Neut % (Auto) 90.6 % % Lymph % (Auto) 5.5 % % [place] % (Auto) 2.9 % % Eos % (Auto) 0.3 % % Baso % (Auto) 0.2 % % Neut # (Auto) 7.94 10^3/uL H 10 ^3/uL (1.8-7.7) Lymph # (Auto) 0.5 10^3/uL L 10^ 3/uL (0.8-4.8) [place] # (Auto) 0.3 10^3/uL 10^3/ uL (0.2-0.9) Eos # (Auto) 0.0 10^3/uL 10^3/ uL (0.0-0.8) Baso # (Auto) 0.0 10^3/uL 10^3/ uL (0.0-0.1) Nucleated RBC % (a uto) 0.2 % % Nucleated RBCs # 0.0 /100WBC /100W BC Sodium 129 mmol/L L mmol /L (136-145) Potassium 4.2 mmol/L mmol/L (3.5-5.1) Chloride 85 mmol/L L mmol/ L (98-107) Carbon Dioxide 28 mmol/L mmol/L (22-29) Anion Gap 20.2 H (5-19) BUN 9 mg/dL mg/dL (8-23) Creatinine 0.6 mg/dL mg/dL (0.5-0.9) GFR Calculation 101.0 mL/min mL/m in (90-130) Glucose 132 mg/dL H mg/dL (65-115) Calculated Osmolal ity 269 mOsm/kg L mOs m/kg (285-295) Calcium 10.4 mg/dL mg/dL (8.5-10.5) Total Bilirubin 0.5 mg/dL mg/dL (0.15-1.2) AST 16 U/L U/L (0-32) ALT 9 U/L U/L (0-33) Alkaline Phosphata se 95 IU/L IU/L (35-105) Total Protein 9.3 g/dL H g/dL (6.6-8.7) Albumin 5.1 g/dL g/dL (3.5-5.2) Globulin 4.2 g/dL g/dL (1.3-4.6) Lipase 14 U/L U/L (13-60) Imaging Data^: CT Abd/Pel: Radiologist's impression: [address] [place] [address] CT Scan Report Signed Patient: Nisreen Carrasco V Unit #: [id number] : [id number] Age/Sex: 61 / F ADM Date: 09/06/21 Loc: ER Room/Bed: Attending Dr: Ordering Provider/Ordering MD: Isabelle Choi MD Date of Service: 09/06/21 Procedure(s): CT abdomen pelvis w con* [id number] Accession Number(s): [id number] Report Number: [id number] PROCEDURE INFORMATION: Exam: CT Abdomen And Pelvis With Contrast Exam date and time: 09/06/2021 8:46 PM Age: 61 years old Clinical indication: Abdominal pain; Generalized; Prior surgery; Surgery date: 6+ months; Surgery type: Hyst, hemicolectomy; Patient HX: C/O abd pain w n/v TECHNIQUE: Imaging protocol: Computed tomography of the abdomen and pelvis with contrast. Radiation optimization: All CT scans at this facility use at least one of these dose optimization techniques: automated exposure control; mA and/or kV adjustment per patient size (includes targeted exams where dose is matched to clinical indication); or iterative reconstruction. Contrast material: OMNI 300; Contrast volume: 75 ml; Contrast route: INTRAVENOUS (IV); COMPARISON: CT abdomen pelvis w con* [id number] 07/31/2021 12:21 PM RADIATION DOSE METRICS: Total DLP (mGy-cm): 661.9 FINDINGS: Lungs: Mild diffuse reticular interstitial lung changes. Liver: Normal. No mass. Gallbladder and bile ducts: Normal. No calcified stones. No ductal dilation. Pancreas: Normal. No ductal dilation. Spleen: Normal. No splenomegaly. Adrenal glands: Normal. No mass. Kidneys and ureters: Severe parenchymal atrophy of right kidney. Right internal ureteral stent in place. Negative for hydronephrosis. Stomach and bowel: Stomach is dilated without wall thickening. Multiple dilated bowel loops with air-fluid levels. Small bowel dilated up to least 4 cm diameter. Distal small bowel loops are collapsed in the right lower quadrant. Appendix: No evidence of appendicitis. Intraperitoneal space: Small volume simple free fluid. Negative for pneumoperitoneum. Retroperitoneal space: Numerous surgical clips in the retroperitoneum. Vasculature: Circumferential atherosclerotic plaques of abdominal aorta. Negative for aneurysm. Lymph nodes: Unremarkable. No enlarged lymph nodes. Urinary bladder: Unremarkable as visualized. Reproductive: Hysterectomy. Bones/joints: Unremarkable. No acute fracture. Soft tissues: Unremarkable. CT/CT abdomen pelvis w con* [id number] IMPRESSION: Small-bowel obstruction suspected. Probable transition point in the right lateral abdomen but the exact site of transition difficult to distinctly define. Radiation Dose CTDIVOL = (mGy): DLP = 661.9 (mGy-cm) Dictated By: Rafy Clay Signed By: Rafy Clay Signed Date/Time: 09/06/212139 DD/ 45 Discharge Plan Discharge Patient Disposition: Admitted As Inpatient Admit Provider: Lillian Moreno Clinical Impression: Small bowel obstruction Condition: Stable Coding Level of Care Code ED Decay Control Operator for [facility]
[2021-09-06 20:56] VITALS: BP 172/95; PULSE 91; RESP 18; TEMP 37.2; O2SAT 97; BMI 17.8
[2021-09-06 21:05] VITALS: BP 172/95; PULSE 89; RESP 18; TEMP 37.2; O2SAT 96
[2021-09-06 21:19] LABS: Basophils % 0.2 %; Eosinophils % 0.3 %; Hematocrit 46.6 % (37.0-47.0); Hemoglobin 15.6 g/dL (11.5-15.3); Lymphocytes # 0.5 10^3/uL (0.8-4.8); Lymphocytes % 5.5 %; Mean Corpuscular HGB Conc 33.5 g/dL (30.0-36.0); Mean Corpuscular Hemoglobin 32.4 pg (28.0-34.0); Mean Corpuscular Volume 96.9 fl (81-99); Monocytes # 0.3 10^3/uL (0.2-0.9); Monocytes % 2.9 %; Neutrophils # 7.94 10^3/uL (1.8-7.7); Neutrophils % 90.6 %; Nucleated Red Blood Cells % 0.2 %; Platelet Count 170 10^3/cmm (130-400); Red Blood Count 4.81 10^6/uL (4.1-5.3); Red Cell Distribution Width 13.6 % (12.1-15.1); White Blood Count 8.8 10^3/uL (4.0-10.0)
[2021-09-06] MEDS: iohexol 300 mg/mL 100 mL Btl IV (21:22)
[2021-09-06 21:31] LABS: Alanine Aminotransferase 9 U/L (0-33); Albumin Level 5.1 g/dL (3.5-5.2); Alkaline Phosphatase 95 IU/L (35-105); Anion Gap 20.2 (5-19); Aspartate Amino Transferase 16 U/L (0-32); Blood Urea Nitrogen 9 mg/dL (8-23); Calcium 10.4 mg/dL (8.5-10.5); Carbon Dioxide 28 mmol/L (22-29); Chloride 85 mmol/L (98-107); Globulin 4.2 g/dL (1.3-4.6); Glucose 132 mg/dL (65-115); Lipase 14 U/L (13-60); Osmolality Calculated 269 mOsm/kg (285-295); Potassium 4.2 mmol/L (3.5-5.1); Sodium 129 mmol/L (136-145); Total Bilirubin 0.5 mg/dL (0.15-1.2); Total Protein 9.3 g/dL (6.6-8.7)
[2021-09-06] MEDS: HYDROmorphone 1 mg/mL INJ 1 mL 0.5 MG IVP (21:33)
[2021-09-06] MEDS: ondansetron 2 mg/ML SDV 2 mL 4 MG IVP (21:34)
[2021-09-06] MEDS: sodium chloride 0.9% 1,000 ML 999 ML IV (21:34)
[2021-09-06] MEDS: LORazepam 2 mg/mL INJ 1 mL 1 MG IVP (22:11)
[2021-09-06 23:20] VITALS: BP 170/101; PULSE 87; RESP 16; O2SAT 97
[2021-09-06 23:23] LABS: D Dimer 3.34 ug/mIFEU (0-0.59)
[2021-09-07] VITALS (11 sets, daily range): BP systolic 163–180; BP diastolic 89–100; PULSE 83–104; RESP 16–18; TEMP 36.4–37.1; O2SAT 93–95; BMI 17.9
--- NOTE | 2021-09-07 05:57 | P.HP_ITS ---
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 Denies any fever, chills, cough, chest pain, palpitations. For details regarding her previous admission see past HPIs. Most recently she was transfered to [facility] for definitve surgical management of recurrent SBO, however was managed conservatively. Review of Systems General: Reports: 10 or more systems reviewed and unremarkable except in HPI and below Const: Denies: fever(s), chills or body aches Eyes: Denies: change in vision, blurry vision or photophobia ENMT: Reports: hoarseness; Denies: throat pain, enlarged tonsils, odynophagia or nasal congestion Card: Denies: chest pain, palpitations, irregular heart rhythm, edema, swelling of feet/ankles, lightheadedness, pre-syncope, dyspnea on exertion or orthopnea Resp: Denies: dyspnea, productive cough, non-productive cough, wheezing, stridor, pain on inspiration, change in phlegm color, hemoptysis or chest congestion GI: Denies: abdominal pain, nausea, vomiting, hematemesis, coffee ground emesis, dysphagia, heartburn, diarrhea, constipation, GI cramping, change in stool character, hematochezia or melena : Denies: flank pain, difficulty voiding, dysuria, urinary frequency, urinary urgency, urinary hesitancy or hematuria Musc: Denies: neck pain, back pain, extremity pain, joint swelling, joint w armth or deformity Neuro: Denies: headache(s), numbness in extremities, weakness in extremities, sensory changes, difficulty walking, frequent falls, dizziness, vertigo, behavioral changes, Slurred speech present or seizure-like activity Psych: Denies: anxiety, depression, suicidal ideation or homicidal ideation Endo: Denies: polyuria, polydipsia, tired all the time, cold intolerance or hot flashes Kashif/Lymph: Denies: easy bruising or easy bleeding Medications/Allergies Home Medications Medication Instructions Recorded Confirmed Last Taken Type esomeprazole magnesium 40 mg 40 mg PO BID cap 11/29/19 07/29/21 07/28/21 08:00 History capsule,delayed release levothyroxine 50 mcg tablet 50 mcg PO DAILY 11/29/19 07/29/21 07/28/21 08:00 History oxycodone 20 mg tablet 20 mg PO Q6H PRN 11/29/19 07/29/21 07/28/21 08:00 History rivaroxaban 20 mg tablet 20 mg PO DAILY 11/29/19 07/29/21 07/28/21 08:00 History venlafaxine 150 mg 150 mg PO DAILY 11/29/19 07/29/21 07/28/21 08:00 History capsule,extended release 24 hr trazodone 150 mg PO BEDTIME 12/01/19 07/29/21 07/27/21 22:00 History fentanyl 2 patch TOPICAL Q72H 12/04/19 07/29/21 06/26/21 08:00 History senna 8.6 mg PO DAILY 07/29/21 07/29/21 07/28/21 22:00 History Lyrica 150 mg PO TID 07/31/21 07/31/21 Unknown History Vasotec 10 mg PO BID 07/31/21 07/31/21 Unknown History Allergies Allergy/AdvReac Type Severity Reaction Status Date / Time carboplatin AdvReac ADR-Vomitin Verified 03/10/21 11:00 g PFSH Acute PFSH: Medical History Bacteremia Chronic anticoagulation COPD (chronic obstructive pulmonary disease) COPD exacerbation Extrinsic ureteral obstruction Fungemia History of DVT (deep vein thrombosis) Hydronephrosis, right Hypoxia Malnutrition Multifocal pneumonia Ovarian cancer on right Pelvic pain in female Recurrent UTI Renal failure Secondary malignant neoplasm of other specified sites Small bowel obstruction Small bowel obstruction Transaminitis VRE bacteremia Surgical History History of hysterectomy with bilateral oophorectomy History of right hemicolectomy S/P ureteral stent placement Family History Mother , at age 59 Cancer breast Myocardial infarction (lateral wall) Father Cancer prostate cancer Pacemaker Other CAD (coronary artery disease) Hypertension Social History Smoking and tobacco status: current every day smoker Alcohol intake: never Adopted: No Caregiver/support person: No Lives independently: No Household members: spouse Marital status: Current occupational status: disabled History of recent travel: No Female Reproductive History: Date of last menstrual period: 12/01/19 Vitals/I&O/Wt Last Vital Signs Temp 98.7 F 09/07/21 04:00 Pulse 103 H 09/07/21 04:00 Resp 18 09/07/21 04:00 BP 170/100 09/07/21 04:00 Pulse Ox 94 09/07/21 04:00 09/06/21 09/06/21 09/07/21 14:59 22:59 06:59 Intake Total 1000 / 1000 Output Total 300 / 300 Balance 700 / 700 Weight last 48 hrs Weight 51.88 kg Weight 51.71 kg Physical Exam Narrative: EXAM NARRATIVE: General: No acute distress, AO x3, frail, chronically ill appearing lady HEENT: PERRLA, pupils bilaterally equal and reactive, pallors not present Chest: Normal vesicular breath sounds, no added sounds, equal good air entry bilaterally CVS: S1-S2 regular, no murmurs, no tachycardia, no gallops, no rubs Abdomen: Soft, distended Neuro: No focal deficits, no facial deformity, AO x3, power 5/5 in all limbs Extremities: Healthy surgical dressing present on the right hip, mild tenderness, soft no erythema. Const: COMMON NORMALS: no acute distress, average body habitus, patient oriented x3, no limitations, healthy appearing, alert and well nourished HENMT: COMMON NORMALS: normocephalic and atraumatic HEAD & SCALP: normocephalic and atraumatic Eye: COMMON NORMALS: Equal, round and reactive pupils present, EOMs intact bilaterally, conjunctivae normal and no scleral icterus CONJUNCTIVA: Yes conjunctivae normal PUPIL: Yes Equal, round and reactive pupils present Neck/C-Spine: COMMON NORMALS: no JVD Resp: COMMON NORMALS: normal respiratory effort, No retractions, No use of accessory muscles, clear to auscultation bilaterally and percussion normal AUSCULTATION: clear to auscultation bilaterally PERCUSSION: percussion normal Cardio: COMMON NORMALS: no JVD, regular rate, regular rhythm, S1 normal heart sound present, S2 normal heart sound present, No gallops present (Cardio), No clicks present (Cardio), No murmurs present (Cardio), No rub (Cardio) and Peripheral pulses 2+ throughout RATE: regular rate RHYTHM: regular rhythm HEART SOUNDS: S1 normal heart sound present and S2 normal heart sound present PERIPHERAL PULSES: Peripheral pulses 2+ throughout GI: COMMON NORMALS: Normal to inspection, nondistended, normoactive bowel sounds present, Soft to palpation, non-tender, No hepatosplenomegaly present, no masses and no bruits PALPATION: Yes Soft to palpation and Yes No hepatosplenomegaly present Extremity: COMMON NORMALS: normal to inspection, full ROM, capillary refill normal, no joint enlargement, no clubbing, cyanosis or edema, no calf tenderness and no pedal edema Neuro: COMMON NORMALS: patient oriented x3, CN's II-XII intact bilaterally, moves all extremities, no focal motor deficits, no sensory deficits noted, deep tendon reflexes 2+ bilaterally and gait normal SENSORIUM/ORIENTATION: Yes alert Psych: COMMON NORMALS: mental status grossly normal, Normal thought process present, cooperative, normal affect, speech normal, activity/motor behavior normal, denies hallucinations, denies homicidal ideation and denies suicidal ideation SPEECH: Yes normal speech THOUGHT PROCESS: Normal thought process present Skin: COMMON NORMALS: no rashes or lesions noted, no wounds, turgor normal, no jaundice, no petechiae and no mottling GENERAL SKIN EXAM: no rashes or les ions noted and turgor normal Data : 09/06/21 20:52 09/06/21 20:52 Other Labs: Laboratory Results WBC 8.8 10^3/uL (4.0-10.0) 09/06/21 20:52 RBC 4.81 10^6/uL (4.1-5.3) 09/06/21 20:52 Hgb 15.6 g/dL (11.5-15.3) H 09/06/21 20:52 Hct 46.6 % (37.0-47.0) 09/06/21 20:52 MCV 96.9 fl (81-99) 09/06/21 20:52 MCH 32.4 pg (28.0-34.0) 09/06/21 20:52 MCHC 33.5 g/dL (30.0-36.0) 09/06/21 20:52 RDW 13.6 % (12.1-15.1) 09/06/21 20:52 Plt Count 170 10^3/cmm (130-400) 09/06/21 20:52 MPV 10.0 fL (7.4-10.4) 09/06/21 20:52 Neut % (Auto) 90.6 % 09/06/21 20:52 Lymph % (Auto) 5.5 % 09/06/21 20:52 [place] % (Auto) 2.9 % 09/06/21 20:52 Eos % (Auto) 0.3 % 09/06/21 20:52 Baso % (Auto) 0.2 % 09/06/21 20:52 Neut # (Auto) 7.94 10^3/uL (1.8-7.7) H 09/06/21 20:52 Lymph # (Auto) 0.5 10^3/uL (0.8-4.8) L 09/06/21 20:52 [place] # (Auto) 0.3 10^3/uL (0.2-0.9) 09/06/21 20:52 Eos # (Auto) 0.0 10^3/uL (0.0-0.8) 09/06/21 20:52 Baso # (Auto) 0.0 10^3/uL (0.0-0.1) 09/06/21 20:52 Nucleated RBC % (auto) 0.2 % 09/06/21 20:52 Nucleated RBCs # 0.0 /100WBC 09/06/21 20:52 D-Dimer 3.34 ug/mIFEU (0-0.59) H 09/06/21 20:52 Sodium 129 mmol/L (136-145) L 09/06/21 20:52 Potassium 4.2 mmol/L (3.5-5.1) 09/06/21 20:52 Chloride 85 mmol/L (98-107) L 09/06/21 20:52 Carbon Dioxide 28 mmol/L (22-29) 09/06/21 20:52 Anion Gap 20.2 (5-19) H 09/06/21 20:52 BUN 9 mg/dL (8-23) 09/06/21 20:52 Creatinine 0.6 mg/dL (0.5-0.9) 09/06/21 20:52 GFR Calculation 101.0 mL/min (90-130) 09/06/21 20:52 Glucose 132 mg/dL (65-115) H 09/06/21 20:52 Calculated Osmolality 269 mOsm/kg (285-295) L 09/06/21 20:52 Calcium 10.4 mg/dL (8.5-10.5) 09/06/21 20:52 Total Bilirubin 0.5 mg/dL (0.15-1.2) 09/06/21 20:52 AST 16 U/L (0-32) 09/06/21 20:52 ALT 9 U/L (0-33) 09/06/21 20:52 Alkaline Phosphatase 95 IU/L (35-105) 09/06/21 20:52 Total Protein 9.3 g/dL (6.6-8.7) H 09/06/21 20:52 Albumin 5.1 g/dL (3.5-5.2) 09/06/21 20:52 Globulin 4.2 g/dL (1.3-4.6) 09/06/21 20:52 Lipase 14 U/L (13-60) 09/06/21 20:52 Impressions Abdomen/Pelvis CT 09/06/21 20:46 IMPRESSION: Small-bowel obstruction suspected. Probable transition point in the right lateral abdomen but the exact site of transition difficult to distinctly define. Radiation Dose CTDIVOL = (mGy): DLP = 661.9 (mGy-cm) A&P Assessment and plan (1) Small bowel obstruction: NGT to suction Bowel rest, NPO pain control with morphine, fentanyl patch as at home holding Xarelto in case surgical intervention needed Status: Acute (2) SBO (small bowel obstruction): Status: Acute Additional A&P Information COPD: Duoneb and budesonide inhalation scheduled. Holding off on steorids for now Attestations Medical Necessity Statement*: anticipate >2midnight admission for above management Coding Level of Care Code Acute Senior Software Qa Analyst for [facility] Diagnoses Small bowel obstruction K56.609 SBO (small bowel obstruction) K56.609
[2021-09-07] MEDS: fentaNYL 100 mcg Patch 1 PATCH TRANSDERMA (06:11)
[2021-09-07] MEDS: morphine 4 mg/mL SDV 1 mL 2 MG IVP ×2 (06:44→11:06)
--- NOTE | 2021-09-07 08:03 | XRR_ITS ---
PROCEDURE INFORMATION: Exam: XR Abdomen Exam date and time: 09/07/2021 8:03 AM Age: 61 years old Clinical indication: Device placement; Gi device; Nasogastric tube; Additional info: Check ng placement TECHNIQUE: Imaging protocol: XR of the abdomen. Views: Frontal supine view of the abdomen. 1 View. COMPARISON: CT abdomen pelvis w con* [id number] 09/06/2021 9:19 PM FINDINGS: Tubes, catheters and devices: A nasogastric tube is present with the tip projecting on the stomach antrum. Gastrointestinal tract: Dilated loops of small bowel are present in the upper abdomen consistent with the history of obstruction. Bones/joints: Unremarkable. XR/XR abdomen 1V* [id number] IMPRESSION: The tip of the nasogastric tube projects on the stomach antrum. Radiation Dose CTDIVOL = (mGy): DLP = (mGy-cm)
[2021-09-07] MEDS: enoxaparin 40 mg/0.4 mL Syringe SUBCUT (08:07)
--- NOTE | 2021-09-07 10:04 | PC.CHAP ---
Pastoral Care Encounter/Spiritual Assessment Type of Contact [] Declined manager of clinical visit [] Patient/Family/Request visit [] Outpatient visit [] Follow-up visit [] Physician referral [] Code/Alert [x] Routine visit [] Staff referral [] Actively dying [] Patient sleeping [] Family support [] [] Out of room [] Palliative care [] [] Receiving care in room [] Pre-surgical visit [] Trauma [] Long length of stay [] ICU visit [] Other: Relational/Emotional Strength [x] Patient feels connected with others/family/visitors/staff [] Distress [] Loneliness/isolation [] Abandonment Spirituality of Patient [x] Person of Anuradha [] Attends Buddhist of their Anuradha [x] Believes in Prayer [] Reads Bible or Yarsani materials [] There are Spiritual issues to be addressed Early Childhood Educator Aide Interventions [x] Prayer [x] Active listening [x] Non-anxious presence [x] Spiritual/emotional support [] Crisis/trauma care [] Spiritual counseling [] Bereavement support [] Provided bereavement packet [] Provided Bible/devotional materials [] Provided toy/stuffed animal, coloring book to patient or family member [] Provided Communion [] Anointing/[place] [] Salvation [x] Completed spiritual assessment [] Other: Impact on Illness or Injury [] Angry [] Fearful [] Anxious [] Often cries [] Exhaustion [] Unable to work [] Unable to attend religious [] Unable to walk/stand [] Unable to read [] Unable to drive [] Unable to eat/drink [] Unable to sleep [] Unable to be with family [] Patient intubated [] Other: Summary Early Childhood Educator Aide prayed with patient. Time spent with patient 7 minutes.
--- NOTE | 2021-09-07 13:12 | XRR_ITS ---
PROCEDURE INFORMATION: Exam: XR Abdomen Exam date and time: 09/07/2021 1:12 PM Age: 61 years old Clinical indication: Abdominal pain; Additional info: Small bowel obstruction TECHNIQUE: Imaging protocol: XR of the abdomen. Views: Frontal supine view of the abdomen. 1 View. COMPARISON: CR XR abdomen 1V* [id number] 09/07/2021 8:12 AM FINDINGS: Tubes, catheters and devices: The tip of the nasogastric tube projects on the stomach. A right ureteral stent is present in stable satisfactory position. Numerous surgical clips are present in the abdomen. Gastrointestinal tract: There are loops of moderately dilated small bowel in the abdomen but the bowel dilatation has mildly decreased since previous study. Gas is present in the colon which is not dilated. Bones/joints: Unremarkable. XR/XR KUB portable [id number] IMPRESSION: 1. Satisfactory position of the nasogastric tube in the stomach. 2. Improving small bowel dilatation. Radiation Dose CTDIVOL = (mGy): DLP = (mGy-cm)
--- NOTE | 2021-09-07 13:55 | P.PN_ITS ---
Subjective Subjective: Interval history: Admitted overnight. Has NG tube in place up to intermittent suction. States today morning has had 2 bowel movements, one larger one normal. Occasionally passing flatus. Denies any nausea, vomiting, headache. Vitals/I&O/Wt Last Vital Signs Temp 98.1 F 09/07/21 11:01 Pulse 104 H 09/07/21 11:01 Resp 18 09/07/21 11:06 BP 170/93 09/07/21 11:01 Pulse Ox 95 09/07/21 11:01 09/06/21 09/07/21 09/07/21 22:59 06:59 14:59 Intake Total 1000 / 1000 Output Total 300 / 300 Balance 700 / 700 Weight last 48 hrs Weight 51.88 kg Weight 51.71 kg Physical Exam Narrative: EXAM NARRATIVE: General: No acute distress, AO x3, frail, chronically ill appearing lady HEENT: PERRLA, pupils bilaterally equal and reactive, pallors not present Chest: Normal vesicular breath sounds, no added sounds, equal good air entry bilaterally CVS: S1-S2 regular, no murmurs, no tachycardia, no gallops, no rubs Abdomen: Soft, distended Neuro: No focal deficits, no facial deformity, AO x3, power 5/5 in all limbs Extremities: Healthy surgical dressing present on the right hip, mild tenderness, soft no erythema. Data : 09/06/21 20:52 09/06/21 20:52 A&P Assessment and plan (1) Small bowel obstruction: NG tube to be clamped. X-ray KUB. Start on clear liquid diet. Milk of magnesia. Status: Acute Additional A&P Information COPD: Duoneb and budesonide inhalation scheduled. Holding off on steorids for now Hypertension: Goal blood pressure less than 140/90 mmHg. Continue with home antihypertensives. Continue other chronic oral medications. Full code. Clear liquid diet. Protonix for PUD prophylaxis. Attestations Medical Necessity Statement*: Requires further hospitalization for conservative treatment for small bowel obstruction Time Spent in Patient Care: Greater than 35 minutes (>than 50% of time spent in counselling and/or direct pt care on unit) . Coding Level of Care Code Acute Eligibility Consultant for [facility] Diagnoses Small bowel obstruction K56.609
[2021-09-07] MEDS: pregabalin 150 mg Capsule PO ×2 (14:36→20:23)
[2021-09-07] MEDS: magnesium hydroxide 30 mL UDC PO (14:36)
[2021-09-07] MEDS: oxyCODONE 5 mg IR Tab/Cap 20 MG PO ×2 (15:21→20:25)
[2021-09-07] MEDS: pantoprazole DR 40 mg Tablet PO (17:06)
[2021-09-07] MEDS: trazodone 150 mg Tablet PO (20:23)
[2021-09-08] VITALS (11 sets, daily range): BP systolic 150–175; BP diastolic 83–92; PULSE 77–90; RESP 16–18; TEMP 36.4–37.3; O2SAT 95–98
[2021-09-08] MEDS: oxyCODONE 5 mg IR Tab/Cap 20 MG PO ×4 (02:17→14:29)
[2021-09-08 03:53] LABS: Basophils % 0.3 %; Eosinophils # 0.1 10^3/uL (0.0-0.8); Eosinophils % 1.5 %; Hematocrit 38.4 % (37.0-47.0); Hemoglobin 12.8 g/dL (11.5-15.3); Lymphocytes # 0.8 10^3/uL (0.8-4.8); Lymphocytes % 13.6 %; Mean Corpuscular HGB Conc 33.3 g/dL (30.0-36.0); Mean Corpuscular Hemoglobin 32.8 pg (28.0-34.0); Mean Corpuscular Volume 98.5 fl (81-99); Mean Platelet Volume 10.1 fL (7.4-10.4); Monocytes # 0.7 10^3/uL (0.2-0.9); Monocytes % 12.2 %; Neutrophils # 4.24 10^3/uL (1.8-7.7); Neutrophils % 71.9 %; Nucleated Red Blood Cells % 0 %; Platelet Count 142 10^3/cmm (130-400); Red Cell Distribution Width 13.7 % (12.1-15.1); White Blood Count 5.9 10^3/uL (4.0-10.0)
[2021-09-08 04:22] LABS: Alanine Aminotransferase 6 U/L (0-33); Albumin Level 4.1 g/dL (3.5-5.2); Alkaline Phosphatase 67 IU/L (35-105); Anion Gap 14.2 (5-19); Aspartate Amino Transferase 13 U/L (0-32); Blood Urea Nitrogen 9 mg/dL (8-23); Calcium 9.5 mg/dL (8.5-10.5); Carbon Dioxide 32 mmol/L (22-29); Chloride 92 mmol/L (98-107); Globulin 3.5 g/dL (1.3-4.6); Glucose 88 mg/dL (65-115); Osmolality Calculated 278 mOsm/kg (285-295); Potassium 3.2 mmol/L (3.5-5.1); Sodium 135 mmol/L (136-145); Total Bilirubin 0.8 mg/dL (0.15-1.2); Total Protein 7.6 g/dL (6.6-8.7)
[2021-09-08] MEDS: enoxaparin 40 mg/0.4 mL Syringe SUBCUT (07:59)
[2021-09-08] MEDS: venlafaxine ER (24HR) 150 mg Capsule PO (08:00)
[2021-09-08] MEDS: pregabalin 150 mg Capsule PO ×2 (08:00→14:29)
[2021-09-08] MEDS: levothyroxine 50 mcg Tablet PO (08:00)
[2021-09-08] MEDS: pantoprazole DR 40 mg Tablet PO (08:00)
--- NOTE | 2021-09-08 09:00 | XRR_ITS ---
PROCEDURE INFORMATION: Exam: XR Abdomen Exam date and time: 09/08/2021 9:00 AM Age: 61 years old Clinical indication: Condition or disease; Intestinal condition; Obstruction; Additional info: Sbo TECHNIQUE: Imaging protocol: XR of the abdomen. Views: Frontal supine view of the abdomen. 1 View. COMPARISON: CR (ABDOMEN, ) 09/07/2021 1:29 PM FINDINGS: Tubes, catheters and devices: Feeding tube is in satisfactory position. Surgical clips are seen projecting over the mid abdomen and pelvis. Right-sided double-J stent remains in unchanged satisfactory position. Gastrointestinal tract: Mildly distended air-filled loops of small bowel are again seen. No air-fluid levels identified. Air is seen within the colon. Bones/joints: Unremarkable. XR/XR KUB portable [id number] IMPRESSION: Nonspecific imaging findings, which be seen partial small bowel obstruction or adynamic ileus. Radiation Dose CTDIVOL = (mGy): DLP = (mGy-cm)
--- NOTE | 2021-09-08 09:57 | PC.CHAP ---
Pastoral Care Encounter/Spiritual Assessment Type of Contact [] Declined level vial inspector visit [] Patient/Family/Request visit [] Outpatient visit [] Follow-up visit [] Physician referral [] Code/Alert [x] Routine visit [] Staff referral [] Actively dying [] Patient sleeping [] Family support [] [] Out of room [] Palliative care [] [] Receiving care in room [] Pre-surgical visit [] Trauma [] Long length of stay [] ICU visit [] Other: Relational/Emotional Strength [x] Patient feels connected with others/family/visitors/staff [] Distress [] Loneliness/isolation [] Abandonment Spirituality of Patient []x Person of Anuradha [] Attends Orthodox of their Anuradha [x] Believes in Prayer [] Reads Bible or Confucianist materials [] There are Spiritual issues to be addressed Meat [employer] Demonstrator Interventions [x] Prayer x[] Active listening [] Non-anxious presence [] Spiritual/emotional support [] Crisis/trauma care [] Spiritual counseling [] Bereavement support [] Provided bereavement packet [] Provided Bible/devotional materials [] Provided toy/stuffed animal, coloring book to patient or family member [] Provided Communion [] Anointing/[place] [] Salvation [x] Completed spiritual assessment [] Other: Impact on Illness or Injury [] Angry [] Fearful [] Anxious [] Often cries [] Exhaustion [] Unable to work [] Unable to attend presybeterian [] Unable to walk/stand [] Unable to read [] Unable to drive [] Unable to eat/drink [] Unable to sleep [] Unable to be with family [] Patient intubated [] Other: Summary Time spent with patient 10min
--- NOTE | 2021-09-08 16:44 | P.DS_ITS ---
Discharge Providers Date of Admission: 09/06/21 21:43 Date of Discharge: September 08, 2021 Attending Provider at Admission: Lillian Moreno MD Attending Provider at Discharge: Kailash Davis Diagnoses at Discharge Discharge Diagnosis (1) Small bowel obstruction: Status: Acute Reason for Visit Reason for Visit: ABDOMINAL PAIN/ N/V Hospital Course Hospital Course Pleasant 61-year-old lady with history of recurrent ovarian cancer, multiple abdominal surgeries, multiple bowel obstruction episodes, previously also transferred to [place] where has required surgical intervention, however, managed conservatively, was admitted for assessment of management due to bowel obstruction, managed conservatively with bowel rest, NGT, IV hydration, bowel regimen. NG tube has been clamped since last night. No additional vomiting or abdominal discomfort. She is tolerating clear liquid diet. NG tube removed today, Joseph discontinued earlier this morning. She is doing well, and would like to return home. She is asked to maintain small full liquid meals for now spread through the day, appears she has trouble advancing to solid food. She is asked to supplement with protein shakes and supplements through the day. Chronic opioids unfortunately likely to contribute as she is on both fentanyl patch and oxycodone. As needed Relistor is provided for her as well. Physical Exam Const: COMMON NORMALS: no acute distress and patient oriented x3 HENMT: COMMON NORMALS: oropharynx normal Neck/C-Spine: COMMON NORMALS: no JVD Resp: COMMON NORMALS: normal respiratory effort and clear to auscultation bilaterally AUSCULTATION: clear to auscultation bilaterally Cardio: COMMON NORMALS: no JVD, regular rhythm, S1 normal heart sound present, S2 normal heart sound present and No murmurs present (Cardio) RHYTHM: regular rhythm HEART SOUNDS: S1 normal heart sound present and S2 normal heart sound present GI: COMMON NORMALS: Normal to inspection, nondistended, normoactive bowel sounds present, Soft to palpation and non-tender PALPATION: Yes Soft to palpation Extremity: COMMON NORMALS: no joint enlargement and no pedal edema Neuro: COMMON NORMALS: patient oriented x3 and moves all extremities Skin: COMMON NORMALS: no rashes or lesions noted GENERAL SKIN EXAM: no rashes or lesions noted Discharge Data Data Completed and Pending: Completed Studies During Hospitalization Category Date Time Status CT abdomen pelvis w con* [id number] Urge nt Cat Scan 09/06/21 20:46 Completed XR KUB portable [id number] Routine Exams 09/08/21 09:00 Completed XR KUB portable [id number] Stat Exams 09/07/21 13:12 Completed XR abdomen 1V* [id number] Routine Exams 09/07/21 08:03 Completed Labs from last 24 hours 09/08/21 09/08/21 03:33 03:33 WBC 5.9 RBC 3.90 L Hgb 12.8 Hct 38.4 MCV 98.5 MCH 32.8 MCHC 33.3 RDW 13.7 Plt Count 142 MPV 10.1 Neut % (Auto) 71.9 Lymph % (Auto) 13.6 [place] % (Auto) 12.2 Eos % (Auto) 1.5 Baso % (Auto) 0.3 Neut # (Auto) 4.24 Lymph # (Auto) 0.8 [place] # (Auto) 0.7 Eos # (Auto) 0.1 Baso # (Auto) 0.0 Nucleated RBC % (a uto) 0 Nucleated RBCs # 0.0 Sodium 135 L Potassium 3.2 L Chloride 92 L Carbon Dioxide 32 H Anion Gap 14.2 BUN 9 Creatinine 0.6 GFR Calculation 101.0 Glucose 88 Calculated Osmolal ity 278 L Calcium 9.5 Total Bilirubin 0.8 AST 13 ALT 6 Alkaline Phosphata se 67 Total Protein 7.6 Albumin 4.1 Globulin 3.5 Vitals: Last Vital Signs Temp 99.1 F 09/08/21 16:00 Pulse 80 09/08/21 16:00 Resp 16 09/08/21 16:00 BP 175/92 09/08/21 16:00 Pulse Ox 98 09/08/21 16:00 Discharge Plan Discharge Patient Disposition: Home Condition: Stable Prescriptions: New Relistor 8 mg/0.4 mL syringe 8 mg SUBCUT EVERY OTHER DAY PRN (Reason: constipation) Qty: 2.8 RF: 0 lactulose 20 gram/30 mL solution 20 g PO DAILY Qty: 2880 RF: 0 Continued esomeprazole magnesium [Nexium] 40 mg capsule,delayed release(DR/EC) 40 mg PO BID RF: 0 oxycodone 20 mg tablet 20 mg PO Q6H PRN (Reason: Pain) RF: 0 venlafaxine [Effexor XR] 150 mg capsule,extended release 24hr 150 mg PO DAILY RF: 0 levothyroxine [Synthroid] 50 mcg tablet 50 mcg PO DAILY RF: 0 Xarelto 20 mg tablet 20 mg PO DAILY RF: 0 Hold Instructions: Resume on 03/14/21. Resume normal dose on 03/14/2021 sennosides [senna] 8.6 mg Tablet 8.6 mg PO DAILY RF: 0 pregabalin [Lyrica] 150 mg capsule 150 mg PO TID RF: 0 enalapril maleate [Vasotec] 10 mg tablet 10 mg PO BID RF: 0 ondansetron HCl 4 mg tablet 4 mg PO Q4H PRN (Reason: Nausea) RF: 0 albuterol sulfate 90 mcg/actuation HFA aerosol inhaler 2 puff INHALATION Q6H PRN (Reason: Shortness Of Breath) RF: 0 Generlac 10 gram/15 mL solution 30 ml PO Q2H PRN (Reason: Constipation) RF: 0 Lynparza 150 mg Tablet 300 mg PO BID RF: 0 trazodone 150 mg Tablet 150 mg PO BEDTIME RF: 0 fentanyl 100 mcg/hr patch 72 hour 1 patch topical Q72H RF: 0 Discharge Orders: Discharge Order (Routine); Ordered 09/08/21 Ordered By: Kailash Davis Referrals: Ravi Lynne MD [Hospitalist] - 4-7 days (Please call office tomorrow and make followup appointment for 4-7 days from discharge. ) Discharge Diet: Full LIquid Discharge Activity: Increase activity as tolerated Patient Instructions: Methylnaltrexone (By injection) (Relistor), Methylnaltrexone (By injection), Bowel Obstruction (GEN), Opioid Safety Activity Restrictions/Additional Instructions: Please space out small meals through the day. Avoid large meals at once. Continue full liquid diet, supplement with protein shakes, nutritional snacks multiple times a day. Please follow-up with your primary doctor. Avoid constipation. Continue lactulose. If constipated, please take Relistor to help with opioid-induced constipation. Where possible reduce use of opioid medications (example oxycodone, fentanyl). Try to stay active when possible, walking may help decrease bowel obstruction as well. Discuss with your primary doctor again referral to surgery for consideration of definitive treatment. Discharge Attestations Time Spent in Discharge Care*: greater than 30 min Status at Discharge: Cognitive status at discharge: cognitively intact , Behavioral status at discharge: cooperative , Quality Metrics Clinical Quality Measures During this hospital stay, did patient experience: None Coding Level of Care Code Acute Chg FW DC note Exam Comprehensive Diagnoses Small bowel obstruction K56.609
--- NOTE | 2021-09-08 17:15 | PC.NURSE ---
discharge instructions given to patient and spouse. both verbalized understanding of instructions. patient's iv removed and covered with 2x2 and coban. patient take to private vehicle via wheelchair by staff and assisted into vehicle.
== END 2021-09-08 17:17 | disposition home health service (06) | DRG 389 ==
LOC: ER 21:57 → MEDSURG 22:00
PROVIDERS: Admitting Provider Student in an Organized Health Care Education/Training Program; Emergency Provider Emergency Medicine; Visit Provider Internal Medicine
DX: K56.609 Unspecified intestinal obstruction, unspecified as to partial versus complete obstruction (principal); E46 Unspecified protein-calorie malnutrition; Z68.1 Body mass index [BMI] 19.9 or less, adult; Z85.43 Personal history of malignant neoplasm of ovary; Z79.01 Long term (current) use of anticoagulants; J44.9 Chronic obstructive pulmonary disease, unspecified; Z86.718 Personal history of other venous thrombosis and embolism; Z87.01 Personal history of pneumonia (recurrent); Z87.440 Personal history of urinary (tract) infections; Z90.710 Acquired absence of both cervix and uterus; Z90.49 Acquired absence of other specified parts of digestive tract; F17.210 Nicotine dependence, cigarettes, uncomplicated; Z99.81 Dependence on supplemental oxygen; I10 Essential (primary) hypertension; Z79.891 Long term (current) use of opiate analgesic; Z79.51 Long term (current) use of inhaled steroids
CPT/HCPCS: 36415; 74018; 74177; 80053; 83690; 85025; 85378; 86304; 96361; 96372; 96374; 96375; 99214; 99285; J1170; J1650; J2060; J2270; J2405; J7030; Q9967

== ENCOUNTER 2021-10-05 12:15 | Inpatient (IN) | payer MEDICARE, OTHER, SELFPAY ==
[2021-10-05] VITALS (7 sets, daily range): BP systolic 132–155; BP diastolic 76–90; PULSE 89–102; RESP 16–19; TEMP 36.4–37.7; O2SAT 94–97; BMI 17.5
--- NOTE | 2021-10-05 12:26 | CTR_ITS ---
PROCEDURE INFORMATION: Exam: CT Abdomen And Pelvis With Contrast Exam date and time: 10/05/2021 12:26 PM Age: 61 years old Clinical indication: Vomiting TECHNIQUE: Imaging protocol: Computed tomography of the abdomen and pelvis with contrast. Sagittal and coronal reformatted images were created and reviewed. The patient was administered oral contrast. Radiation optimization: All CT scans at this facility use at least one of these dose optimization techniques: automated exposure control; mA and/or kV adjustment per patient size (includes targeted exams where dose is matched to clinical indication); or iterative reconstruction. Contrast material: OMNI 300; Contrast volume: 95 ml; Contrast route: INTRAVENOUS (IV); COMPARISON: CT abdomen pelvis w con* [id number] 09/06/2021 9:19 PM RADIATION DOSE METRICS: Total DLP (mGy-cm): 654.96 FINDINGS: Lungs: Ground-glass opacification and reticulonodular interstitial thickening in the visualized right middle lobe and right lower lobe, increased compared with 09/06/2021.. Stable linear scarring in the mid and lower lungs. Pleural spaces: No pleural effusion. Heart: Visualized portions of the heart are unremarkable. Liver: The liver is unremarkable. Gallbladder and bile ducts: The gallbladder is unremarkable. No biliary ductal dilatation. Pancreas: Stable mild atrophy of the pancreatic parenchyma. No pancreatic ductal dilatation. Spleen: The spleen is unremarkable. Small splenule in the left upper quadrant. Adrenal glands: The right and left adrenal glands are unremarkable. Kidneys and ureters: Stable severe atrophy of the right kidney. There is interval development of moderate right hydronephrosis and proximal hydroureter. The right ureter is now obstructed or possibly invaded by a right retroperitoneal mass emanating from the right psoas muscle. (series 2, images 20 8-47). Right ureteral stent is stable in position with the proximal coil in the right renal pelvis in the distal coil in the bladder. The bladder is incompletely filled, which can limit evaluation. No focal abnormality in the bladder however. The left distal ureter is obscured by adjacent bowel loops and soft tissue structures. The visualized left ureter is unremarkable. The left kidney is unremarkable. Stomach and bowel: Persistent dilated loops of proximal small bowel extending into the lower abdomen. Small bowel loops measure up to 4.3 cm in diameter, overall unchanged. The transition point is at the level of a necrotic mass emanating from the right psoas muscle (series 2, images 44-52). It is uncertain whether this is due to an adhesion adjacent to the mass, or if the mass could be invading the adjacent small bowel. A small amount of oral contrast does get past the transition point. There is complete collapse of virtually all small bowel loops beyond the transition point at this time however, suggesting a long-term at least partial small bowel obstruction. Stable changes consistent with a right colectomy and ileocolic anastomosis. Appendix: Stable changes consistent with a previous appendectomy. Intraperitoneal space: No free intraperitoneal air. No loculated fluid collections to suggest an abscess. Stable diffuse small volume ascites and mesenteric edema. Retroperitoneal space: Surgical clips in the retroperitoneum are stable. There is a necrotic mass in the right retroperitoneum. This is stable in size measuring 5.3 x 4.2 x 4.1 cm (series 601, image 43, and series 2, image 45). Vasculature: Hepatic veins, portal veins, splenic vein, and SMV are patent. Mild atherosclerotic changes in the visualized arteries. No evidence for aortic aneurysm or aortic dissection. Lymph nodes: No lymphadenopathy. Urinary bladder: See under kidneys and ureters . Reproductive: Stable changes consistent with a previous hysterectomy. The ovaries are not definitely visualized, not an expected in a postmenopausal female. This may be due to ovarian atrophy. Alternatively, the patient may have had a previous bilateral oophorectomy. Findings are stable. Bones/joints: Degenerative changes in the spine, sacroiliac joints, and hips. Bones are diffusely osteopenic. Mild spinal canal stenosis at L2-L3, L3-L4, and L5-S1. Moderate to severe spinal canal stenosis at L4-L5. Multilevel foraminal stenosis of varying severity in the lumbar spine. Soft tissues: No acute abnormality in the extra-abdominal soft tissues. CT/CT abdomen pelvis w con* [id number] IMPRESSION: 1. Findings consistent with a partial small bowel obstruction. The transition point is at the level of a necrotic mass emanating from the right psoas muscle. It is uncertain whether this is due to an adhesion adjacent to the mass, or if the mass could be invading the adjacent small bowel. There is complete collapse of virtually all small bowel loops beyond the transition point at this time, suggesting a long-term at least partial small bowel obstruction. 2. Stable severe right renal atrophy. Interval development of moderate right hydronephrosis and proximal hydroureter with caliber change of the ureter at the level of the right retroperitoneal mass. Possible invasion of the right ureter cannot be ruled out. The right ureteral stent is stable in position. 3. Ground-glass opacification and reticulonodular interstitial thickening in the visualized right middle lobe and right lower lobe, increased compared with 09/06/2021.. Findings are suspicious for pneumonia, including atypical and viral organisms. Recommend clinical correlation. Recommend followup chest imaging to insure resolution of these findings. 4. Stable changes consistent with a right colectomy and ileocolic anastomosis. 5. Additional postsurgical changes as described in the report. 6. Stable diffuse small volume ascites and mesenteric edema. 7. Incidental/nonacute findings are listed in the report.
--- NOTE | 2021-10-05 12:27 | W.ED.ABDPA2 ---
HPI - Abdominal Pain General: Chief Complaint: Abdominal Pain Stated Complaint: BOWEL BLOCKAGE Time Seen by Provider: 10/05/21 12:21 Source: patient Mode of arrival: ambulatory Limitations: no limitations History of Present Illness: HPI narrative: 61-year-old female has a history of ovarian cancer who has had multiple small bowel obstructions in the past. States that last night she started having some abdominal pain some nausea vomiting was concerned she is getting another bowel obstruction. States her pain is sharp in nature improved greatly is currently 1 out of 10 denies any fevers denies any worst improving factors. Associated Symptoms: Reports nausea and vomiting; Denies chills, dysuria and fever(s) Related Data: Date of Last Menstrual Period: 12/01/19 Review of Systems Const: Denies: fever(s), chills, body aches or change in appetite Eyes: Denies: blurry vision or eye discomfort ENMT: Denies: throat pain or dental pain Card: Denies: chest pain Resp: Denies: dyspnea GI: Reports: abdominal pain, nausea and vomiting : Denies: dysuria Musc: Denies: neck pain or back pain Skin/Breast: Denies: rash Neuro: Denies: headache(s) Psych: Denies: depression [place]/Lymph: Denies: easy bruising All/Imm: Denies: urticaria PFSH ED PFSH: Medical History Bacteremia Chronic anticoagulation COPD (chronic obstructive pulmonary disease) COPD exacerbation Extrinsic ureteral obstruction Fungemia History of DVT (deep vein thrombosis) Hydronephrosis, right Hypoxia Malnutrition Multifocal pneumonia Ovarian cancer on right Pelvic pain in female Recurrent UTI Renal failure SBO (small bowel obstruction) Secondary malignant neoplasm of other specified sites Small bowel obstruction Small bowel obstruction Small bowel obstruction Transaminitis VRE bacteremia Surgical History History of hysterectomy with bilateral oophorectomy History of right hemicolectomy S/P ureteral stent placement Family History Mother , at age 59 Cancer breast Myocardial infarction (lateral wall) Father Cancer prostate cancer Pacemaker Other CAD (coronary artery disease) Hypertension Social History Smoking and tobacco status: current every day smoker Alcohol intake: never Adopted: No Caregiver/support person: No Lives independently: No Household members: spouse Marital status: Current occupational status: disabled History of recent travel: No Female Reproductive History: Date of last menstrual period: 12/01/19 Physical Exam Const: COMMON NORMALS: no acute distress, patient oriented x3 and healthy appearing HENMT: COMMON NORMALS: normocephalic and atraumatic HEAD & SCALP: normocephalic and atraumatic Eye: COMMON NORMALS: Equal, round and reactive pupils present and EOMs intact bilaterally PUPIL: Yes Equal, round and reactive pupils present Neck/C-Spine: COMMON NORMALS: full ROM and supple Chest: COMMONS NORMALS: normal inspection of the chest and normal palpation of entire chest wall Resp: COMMON NORMALS: normal respiratory effort, No retractions, No use of accessory muscles and clear to auscultation bilaterally AUSCULTATION: clear to auscultation bilaterally Cardio: COMMON NORMALS: regular rate, regular rhythm and No murmurs present (Cardio) RATE: regular rate RHYTHM: regular rhythm GI: COMMON NORMALS: Normal to inspection, nondistended, normoactive bowel sounds present, Soft to palpation, non-tender and no masses PALPATION: Yes Soft to palpation Extremity: COMMON NORMALS: normal to inspection and full ROM Neuro: COMMON NORMALS: patient oriented x3, moves all extremities and no focal motor deficits Psych: COMMON NORMALS: mental status grossly normal, Normal thought process present and cooperative THOUGHT PROCESS: Normal thought process present Skin: COMMON NORMALS: no rashes or lesions noted and no wounds GENERAL SKIN EXAM: no rashes or lesions noted Course Vital Signs: Vital signs: Vital Signs Temperature 97.6 F 10/05/21 12:22 Pulse Rate 102 H 10/05/21 12:22 Respiratory Rate 16 10/05/21 13:57 Blood Pressure 140/90 10/05/21 12:22 Pulse Oximetry 97 10/05/21 12:22 MDM - Abdominal Pain MDM Narrative: Medical decision making narrative: Patient presents with small bowel obstruction likely causing her vomiting she is well-appearing here she was hyponatremic sodium slightly improved after IV fluids I spoke to hospitalist will admit we will place NG tube and continue IV fluids. Lab Data: Labs: Lab Results 10/05/21 10/05/21 10/05/21 12:35 12:35 12:35 WBC 13.9 10^3/uL H 10 ^3/uL (4.0-10.0) RBC 4.52 10^6/uL 10^6 /uL (4.1-5.3) Hgb 14.9 g/dL g/dL (11.5-15.3) Hct 42.4 % % (37.0-47.0) MCV 93.8 fl fl (81-99) MCH 33.0 pg pg (28.0-34.0) MCHC 35.1 g/dL g/dL (30.0-36.0) RDW 14.0 % % (12.1-15.1) Plt Count 142 10^3/cmm 10^3 /cmm (130-400) MPV 9.8 fL fL (7.4-10.4) Neut % (Auto) 92.8 % % Lymph % (Auto) 2.5 % % [place] % (Auto) 4.2 % % Eos % (Auto) 0.0 % % Baso % (Auto) 0.2 % % Neut # (Auto) 12.87 10^3/uL H 1 0^3/uL (1.8-7.7) Lymph # (Auto) 0.4 10^3/uL L 10^ 3/uL (0.8-4.8) [place] # (Auto) 0.6 10^3/uL 10^3/ uL (0.2-0.9) Eos # (Auto) 0.0 10^3/uL 10^3/ uL (0.0-0.8) Baso # (Auto) 0.0 10^3/uL 10^3/ uL (0.0-0.1) Nucleated RBC % (a uto) 0 % % Nucleated RBCs # 0.0 /100WBC /100W BC Sodium 124 mmol/L L mmol /L (136-145) Potassium 4.1 mmol/L mmol/L (3.5-5.1) Chloride 81 mmol/L L mmol/ L (98-107) Carbon Dioxide 28 mmol/L mmol/L (22-29) Anion Gap 19.1 H (5-19) BUN 7 mg/dL L mg/dL (8-23) Creatinine 0.6 mg/dL mg/dL (0.5-0.9) GFR Calculation 101.0 mL/min mL/m in (90-130) Glucose 121 mg/dL H mg/dL (65-115) Calculated Osmolal ity 257 mOsm/kg L mOs m/kg (285-295) Lactate 0.9 mmol/L mmol/L (0.5-2.2) Calcium 9.7 mg/dL mg/dL (8.5-10.5) Total Bilirubin 0.8 mg/dL mg/dL (0.15-1.2) AST 18 U/L U/L (0-32) ALT 9 U/L U/L (0-33) Alkaline Phosphata se 86 IU/L IU/L (35-105) Total Protein 7.4 g/dL g/dL (6.6-8.7) Albumin 4.7 g/dL g/dL (3.5-5.2) Globulin 2.7 g/dL g/dL (1.3-4.6) Lipase 14 U/L U/L (13-60) 10/05/21 15:15 WBC RBC Hgb Hct MCV MCH MCHC RDW Plt Count MPV Neut % (Auto) Lymph % (Auto) [place] % (Auto) Eos % (Auto) Baso % (Auto) Neut # (Auto) Lymph # (Auto) [place] # (Auto) Eos # (Auto) Baso # (Auto) Nucleated RBC % (a uto) Nucleated RBCs # Sodium 128 mmol/L L mmol /L (136-145) Potassium 4.1 mmol/L mmol/L (3.5-5.1) Chloride 90 mmol/L L mmol/ L (98-107) Carbon Dioxide 25 mmol/L mmol/L (22-29) Anion Gap 17.1 (5-19) BUN 6 mg/dL L mg/dL (8-23) Creatinine 0.5 mg/dL mg/dL (0.5-0.9) GFR Calculation 124.6 mL/min mL/m in (90-130) Glucose 113 mg/dL mg/dL (65-115) Calculated Osmolal ity 264 mOsm/kg L mOs m/kg (285-295) Lactate Calcium 8.0 mg/dL L mg/dL (8.5-10.5) Total Bilirubin AST ALT Alkaline Phosphata se Total Protein Albumin Globulin Lipase Discharge Plan Discharge Patient Disposition: Admitted As Inpatient Clinical Impression: Small bowel obstruction, Hyponatremia Condition: Stable Coding Level of Care Code ED Director Of Software Engineering for Chg Fwd Exam Comprehensive
[2021-10-05 12:44] LABS: Basophils % 0.2 %; Hematocrit 42.4 % (37.0-47.0); Hemoglobin 14.9 g/dL (11.5-15.3); Lymphocytes # 0.4 10^3/uL (0.8-4.8); Lymphocytes % 2.5 %; Mean Corpuscular HGB Conc 35.1 g/dL (30.0-36.0); Mean Corpuscular Volume 93.8 fl (81-99); Mean Platelet Volume 9.8 fL (7.4-10.4); Monocytes # 0.6 10^3/uL (0.2-0.9); Monocytes % 4.2 %; Neutrophils # 12.87 10^3/uL (1.8-7.7); Neutrophils % 92.8 %; Nucleated Red Blood Cells % 0 %; Platelet Count 142 10^3/cmm (130-400); Red Blood Count 4.52 10^6/uL (4.1-5.3); White Blood Count 13.9 10^3/uL (4.0-10.0)
[2021-10-05 13:02] LABS: Alanine Aminotransferase 9 U/L (0-33); Albumin Level 4.7 g/dL (3.5-5.2); Alkaline Phosphatase 86 IU/L (35-105); Anion Gap 19.1 (5-19); Aspartate Amino Transferase 18 U/L (0-32); Blood Urea Nitrogen 7 mg/dL (8-23); Calcium 9.7 mg/dL (8.5-10.5); Carbon Dioxide 28 mmol/L (22-29); Chloride 81 mmol/L (98-107); Globulin 2.7 g/dL (1.3-4.6); Glucose 121 mg/dL (65-115); Lipase 14 U/L (13-60); Osmolality Calculated 257 mOsm/kg (285-295); Potassium 4.1 mmol/L (3.5-5.1); Sodium 124 mmol/L (136-145); Total Bilirubin 0.8 mg/dL (0.15-1.2); Total Protein 7.4 g/dL (6.6-8.7)
[2021-10-05 13:03] LABS: Lactate (Lactic Acid level) 0.9 mmol/L (0.5-2.2)
[2021-10-05] MEDS: sodium chloride 0.9% 1,000 ML 999 ML IV ×2 (13:38→14:40)
[2021-10-05] MEDS: morphine 4 mg/mL SDV 1 mL IVP ×2 (13:57→17:30)
[2021-10-05] MEDS: ondansetron 2 mg/ML SDV 2 mL 4 MG IVP (13:57)
[2021-10-05] MEDS: iohexol 300 mg/mL 50 mL Btl IV (14:51)
[2021-10-05] MEDS: iohexol 300 mg/mL 100 mL Btl IV (14:53)
[2021-10-05 15:41] LABS: Blood Urea Nitrogen 6 mg/dL (8-23); Carbon Dioxide 25 mmol/L (22-29); Chloride 90 mmol/L (98-107); Glomerular Filtration Rate 124.6 mL/min (90-130); Glucose 113 mg/dL (65-115); Osmolality Calculated 264 mOsm/kg (285-295); Sodium 128 mmol/L (136-145)
[2021-10-05 15:45] LABS: Anion Gap 17.1 (5-19); Potassium 4.1 mmol/L (3.5-5.1)
[2021-10-05] MEDS: sodium chloride 0.9% 500 ML 999 ML IV (16:21)
--- NOTE | 2021-10-05 16:41 | XRR_ITS ---
PROCEDURE INFORMATION: Exam: XR Chest Exam date and time: 10/05/2021 4:41 PM Age: 61 years old Clinical indication: Shortness of breath; Additional info: SOB TECHNIQUE: Imaging protocol: XR of the chest. Views: 1 view. COMPARISON: CR (CHEST, ) 07/29/2021 2:50 AM FINDINGS: Lungs: Stable mild hyperinflation of the lungs. Stable linear scarring in the right and left lower lobes. Interval development of ill-defined interstitial opacities in the right lower lobe. Pleural spaces: No pleural effusion. No pneumothorax. Heart/Mediastinum: The cardiac silhouette and mediastinal contours are unremarkable. Vasculature: Stable vascular calcifications in the aorta. Stable tortuosity of the aorta. Bones/joints: Unremarkable for age. XR/XR chest 1V portable [id number] IMPRESSION: 1. Interval development of ill-defined interstitial opacities in the right lower lobe. Findings are suspicious for pneumonia, including atypical and viral organisms. Recommend followup chest imaging to insure resolution of these findings. 2. Incidental/nonacute findings are listed in the report.
[2021-10-05] MEDS: LORazepam 2 mg/mL INJ 1 mL 1 MG IVP (16:50)
--- NOTE | 2021-10-05 17:48 | P.HP_ITS ---
Providers/Chief Complaint Chief Complaint: BOWEL BLOCKAGE History of Present Illness Nisreen Carrasco is a 61 year old female with O2 dependent COPD, Guynn malignancy, ovarian cancer, history of recurrent small bowel obstructions not deemed an appropriate surgical candidate according to patient at [facility], who presents [facility] due to 12 history of nausea, abdominal pain, decreased stooling. Patient tells me that she has another bowel obstruction, she knows it, because her last bowel movement was yesterday evening, she woke up with abdominal distention, nausea, poor appetite, no fevers, no chills. Review of Systems Const: Denies: fever(s) Eyes: Denies: change in vision or blurry vision Card: Denies: chest pain Resp: Denies: dyspnea, productive cough, non-productive cough or wheezing GI: Denies: vomiting, hematemesis, diarrhea, hematochezia or melena : Denies: flank pain, dysuria or urinary frequency Musc: Denies: neck pain or back pain Skin/Breast: Denies: rash Neuro: Denies: headache(s), dizziness or vertigo Endo: Denies: polyuria or polydipsia Medications/Allergies Home Medications Medication Instructions Recorded Confirmed Last Taken Type esomeprazole magnesium 40 mg 40 mg PO BID cap 11/29/19 10/05/21 10/05/21 History capsule,delayed release levothyroxine 50 mcg tablet 50 mcg PO DAILY 11/29/19 10/05/21 10/05/21 History rivaroxaban 20 mg tablet 20 mg PO DAILY 11/29/19 10/05/21 10/05/21 History venlafaxine 150 mg 150 mg PO DAILY 11/29/19 10/05/21 10/05/21 History capsule,extended release 24 hr trazodone 150 mg PO BEDTIME 12/01/19 10/05/21 10/04/21 History fentanyl 1 patch TOPICAL Q72H 12/04/19 10/05/21 06/26/21 08:00 History sennosides [senna] 8.6 mg PO BID 07/29/21 10/05/21 10/05/21 History enalapril maleate [Vasotec] 10 mg PO BID 07/31/21 10/05/21 10/05/21 History pregabalin [Lyrica] 150 mg PO TID 07/31/21 10/05/21 10/05/21 History Lynparza 300 mg PO BID 09/07/21 10/05/21 10/05/21 History albuterol sulfate 2 puff INHALATION Q6H PRN 09/07/21 10/05/21 Unknown History lactulose [Generlac] 30 ml PO Q2H PRN 09/07/21 10/05/21 Unknown History ondansetron HCl 4 mg PO Q4H PRN 09/07/21 10/05/21 Unknown History methylnaltrexone [Relistor] 8 mg SUBCUT EVERY OTHER DAY PRN 09/08/21 10/05/21 Unknown Rx #2.8 ml carisoprodol 350 mg PO TID PRN 10/05/21 10/05/21 Unknown History oxycodone 30 - 60 mg PO Q6H PRN 10/05/21 10/05/21 Unknown History Allergies Allergy/AdvReac Type Severity Reaction Status Date / Time carboplatin AdvReac ADR-Vomitin Verified 03/10/21 11:00 g PFSH Acute PFSH: Medical History Bacteremia Chronic anticoagulation COPD (chronic obstructive pulmonary disease) COPD exacerbation Extrinsic ureteral obstruction Fungemia History of DVT (deep vein thrombosis) Hydronephrosis, right Hypoxia Malnutrition Multifocal pneumonia Ovarian cancer on right Pelvic pain in female Recurrent UTI Renal failure SBO (small bowel obstruction) Secondary malignant neoplasm of other specified sites Small bowel obstruction Small bowel obstruction Small bowel obstruction Transaminitis VRE bacteremia Surgical History History of hysterectomy with bilateral oophorectomy History of right hemicolectomy S/P ureteral stent placement Family History Mother , at age 59 Cancer breast Myocardial infarction (lateral wall) Father Cancer prostate cancer Pacemaker Other CAD (coronary artery disease) Hypertension Social History Smoking and tobacco status: current every day smoker Alcohol intake: never Adopted: No Caregiver/support person: No Lives independently: No Household members: spouse Marital status: Current occupational status: disabled History of recent travel: No Female Reproductive History: Date of last menstrual period: 12/01/19 Vitals/I&O/Wt Last Vital Signs Temp 97.6 F 10/05/21 12:22 Pulse 102 H 10/05/21 12:22 Resp 16 10/05/21 13:57 BP 140/90 10/05/21 12:22 Pulse Ox 97 10/05/21 12:22 10/05/21 10/05/21 10/05/21 06:59 14:59 22:59 Intake Total 1000 / 1000 1000 / 2000 Balance 1000 / 1000 1000 / 1999 Weight last 48 hrs Weight 50.802 kg Physical Exam Const: COMMON NORMALS: no acute distress and patient oriented x3 GENERAL APPEARANCE: cooperative and comfortable HENMT: COMMON NORMALS: normocephalic HEAD & SCALP: normocephalic Eye: COMMON NORMALS: Equal, round and reactive pupils present and EOMs intact bilaterally GENERAL EYE: appearance normal, both eyes and all related structures PUPIL: Yes Equal, round and reactive pupils present Neck/C-Spine: COMMON NORMALS: full ROM and no lymphadenopathy THYROID: Thyroid normal Lymph: LYMPHATIC: no lymphadenopathy noted Resp: COMMON NORMALS: normal respiratory effort, No retractions, No use of accessory muscles and clear to auscultation bilaterally AUSCULTATION: clear to auscultation bilaterally Cardio: COMMON NORMALS: regular rate, regular rhythm, S1 normal heart sound present, S2 normal heart sound present, No gallops present (Cardio), No clicks present (Cardio) and No murmurs present (Cardio) RATE: regular rate RHYTHM: regular rhythm HEART SOUNDS: S1 normal heart sound present and S2 normal heart sound present GI: COMMON NORMALS: Soft to palpation, non-tender and No hepatosplenomegaly present INSPECTION: Yes abdominal distension AUSCULTATION: Yes Hyperactive bowel sounds present PALPATION: Yes Soft to palpation, No Tenderness to pal pation present (GI), No Guarding due to palpation present (GI), No Rigid due to palpation and No No hepatosplenomegaly present PERCUSSION: normal to percussion Extremity: COMMON NORMALS: normal to inspection, full ROM and no pedal edema Neuro: COMMON NORMALS: patient oriented x3, CN's II-XII intact bilaterally, moves all extremities and no focal motor deficits Psych: COMMON NORMALS: mental status grossly normal, Normal thought process present and cooperative THOUGHT PROCESS: Normal thought process present Data : 12/19/21 12:35 10/05/21 15:15 A&P Assessment and plan (1) Small bowel obstruction: Acute on chronic small bowel obstruction CT scan of the abdomen pelvis shows 1. Findings consistent with a partial small bowel obstruction. The transition point is at the level of a necrotic mass emanating from the right psoas muscle. It is uncertain whether this is due to an adhesion adjacent to the mass, or if the mass could be invading the adjacent small bowel. There is complete collapse of virtually all small bowel loops beyond the transition point at this time, suggesting a long-term at least partial small bowel obstruction. -Was transferred up to [place] roughly a month ago, for consideration of surgical intervention, was not deemed a surgical candidate Plan: -Currently ER hold -N.p.o. -IV fluids -Place NG tube -Monitor for stooling, serial abdominal exams -Is on chronic opiates, continue methylnaltrexone, MiraLAX, senna -Full code -Xarelto for DVT prophylaxis Right lower lobe infiltrate, likely aspiration event, start Zosyn Hyponatremia initial serum sodium 124, with IV hydration it has improved to 128, continue fluids History of recurrent ovarian cancer, with evidence of right pelvic mass -There is a necrotic mass in the right retroperitoneum. This is stable in size measuring 5.3 x 4.2 x 4.1 cm (series 601, image 43, and series 2, image 45) Status: Acute (2) Hyponatremia: Status: Acute (3) Recurrent UTI: Status: Acute Attestations Medical Necessity Statement*: Patient requires hospital, inpatient, greater than 2 midnights for small bowel obstruction Coding Level of Care Code Acute Business Rules Analyst for Chg Fwd Diagnoses Small bowel obstruction K56.609 Hyponatremia E87.1 Recurrent UTI N39.0
[2021-10-05] MEDS: HYDROmorphone 1 mg/mL INJ 1 mL IVP (22:37)
[2021-10-06] VITALS (10 sets, daily range): BP systolic 144–198; BP diastolic 78–101; PULSE 75–94; RESP 15–20; TEMP 36.9–37.3; O2SAT 96–98
[2021-10-06] MEDS: HYDROmorphone 1 mg/mL INJ 1 mL IVP ×2 (03:34→16:20)
[2021-10-06 06:05] LABS: Thyroid Stimulating Hormone 0.76 uIU/mL (0.27-4.20)
[2021-10-06] MEDS: sodium chloride 0.9% 1,000 ML 75 ML IV ×2 (09:16→17:36)
[2021-10-06] MEDS: piperacillin-tazobactam 3.375 GM in sodium chloride 0.9% (plus) 50 ML IV ×2 (09:16→17:04)
[2021-10-06] MEDS: famotidine 20 mg/2 mL INJ IVP ×2 (09:17→17:06)
[2021-10-06] MEDS: levothyroxine 50 mcg Tablet PO (09:21)
[2021-10-06] MEDS: pregabalin 150 mg Capsule PO ×3 (09:21→21:07)
[2021-10-06] MEDS: polyethylene glycol 3350 Pkt 17 gm PO (09:21)
[2021-10-06] MEDS: rivaroxaban 10 mg Tablet 20 MG PO (09:22)
[2021-10-06] MEDS: venlafaxine ER (24HR) 150 mg Capsule PO (09:23)
[2021-10-06] MEDS: oxyCODONE IR 30 mg Tablet PO ×2 (09:23→18:25)
[2021-10-06] MEDS: sennosides 8.6 mg Tablet PO ×2 (09:24→17:05)
--- NOTE | 2021-10-06 14:43 | XR_ITS ---
WS: [id number] Exam: XR chest 1V portable [id number] Date/Time of Exam: 10/06/2021 2:46 PM Reason For Exam: N.G Tube placement Comparison 12/06/2020. An enteric tube is identified ending at about the level of T4. Again noted is mild infiltrate in the right lung base essentially unchanged. Atelectasis in the lingula. Heart size remains normal. The dora gs are hyperinflated which may indicate COPD. There may be a small left basal pleural effusion. The m ediastinum is not widened. XR/XR chest 1V portable [id number] IMPRESSION: 1. Enteric tube ending at about the level of T4. Exact location is undetermined .
--- NOTE | 2021-10-06 14:44 | P.PN_ITS ---
Subjective Subjective: Interval history: Patient was seen and examined this morning, currently she is having bowel movements. She wants to try CLD Medications: Reviewed: Yes Vitals/I&O/Wt Last Vital Signs Temp 99.9 F H 10/05/21 20:48 Pulse 94 10/06/21 08:30 Resp 18 10/06/21 09:23 BP 175/91 10/06/21 08:00 Pulse Ox 97 10/06/21 09:23 10/05/21 10/06/21 10/06/21 22:59 06:59 14:59 Intake Total 999 / 1999 Balance 1000 / 1999 Weight last 48 hrs Weight 50.802 kg Physical Exam Const: COMMON NORMALS: patient oriented x3 HENMT: COMMON NORMALS: normocephalic and atraumatic HEAD & SCALP: normocephalic and atraumatic Chest: CHEST: Yes Symmetrical chest wall rise Resp: COMMON NORMALS: clear to auscultation bilaterally EFFORT & INSPECTION: Yes symmetric chest movement AUSCULTATION: clear to auscultation bilaterally Cardio: COMMON NORMALS: regular rate, regular rhythm, S1 normal heart sound present, S2 normal heart sound present, No gallops present (Cardio), No murmurs present (Cardio), No rub (Cardio) and Peripheral pulses 2+ throughout RATE: regular rate RHYTHM: regular rhythm HEART SOUNDS: S1 normal heart sound present and S2 normal heart sound present PERIPHERAL PULSES: Peripheral pulses 2+ throughout GI: COMMON NORMALS: Normal to inspection, nondistended, normoactive bowel sounds present, Soft to palpation, non-tender, No hepatosplenomegaly present and no masses AUSCULTATION: Yes normoactive bowel sounds PALPATION: Yes Soft to palpation and Yes No hepatosplenomegaly present RECTAL EXAM: deferred Extremity: COMMON NORMALS: no clubbing, cyanosis or edema and no pedal edema Neuro: COMMON NORMALS: patient oriented x3 Data : 10/07/21 05:14 10/07/21 05:14 A&P Assessment and plan (1) Small bowel obstruction: Acute on chronic small bowel obstruction CT scan of the abdomen pelvis shows 1. Findings consistent with a partial small bowel obstruction. The transition point is at the level of a necrotic mass emanating from the right psoas muscle. It is uncertain whether this is due to an adhesion adjacent to the mass, or if the mass could be invading the adjacent small bowel. There is complete collapse of virtually all small bowel loops beyond the transition point at this time, suggesting a long-term at least partial small bowel obstruction. -Was transferred up to [place] roughly a month ago, for consideration of surgical intervention, was not deemed a surgical candidate Plan: -Currently ER hold -N.p.o. -IV fluids -Place NG tube -Monitor for stooling, serial abdominal exams -Is on chronic opiates, continue methylnaltrexone, MiraLAX, senna -Full code -Xarelto for DVT prophylaxis Right lower lobe infiltrate, likely aspiration event, start Zosyn Hyponatremia initial serum sodium 124, with IV hydration it has improved to 128, continue fluids History of recurrent ovarian cancer, with evidence of right pelvic mass -There is a necrotic mass in the right retroperitoneum. This is stable in size measuring 5.3 x 4.2 x 4.1 cm (series 601, image 43, and series 2, image 45) Status: Acute (2) Hyponatremia: Status: Acute (3) Recurrent UTI: Status: Acute Attestations Medical Necessity Statement*: Patient requires hospital, stay for small bowel obstruction Coding Level of Care Code Acute Packaging Manager for Chg Fwd Exam Detailed Diagnoses Small bowel obstruction K56.609 Hyponatremia E87.1 Recurrent UTI N39.0
[2021-10-06] MEDS: fentaNYL 100 mcg Patch 1 PATCH TRANSDERMA (14:58)
[2021-10-06] MEDS: trazodone 150 mg Tablet PO (21:07)
[2021-10-07] VITALS (10 sets, daily range): BP systolic 148–183; BP diastolic 62–90; PULSE 71–92; RESP 16–20; TEMP 36.6–36.9; O2SAT 96–99
[2021-10-07] MEDS: piperacillin-tazobactam 3.375 GM in sodium chloride 0.9% (plus) 50 ML IV ×2 (03:14→09:49)
[2021-10-07] MEDS: oxyCODONE IR 30 mg Tablet PO ×4 (03:22→22:03)
[2021-10-07 06:15] LABS: Basophils % 0.5 %; Eosinophils # 0.1 10^3/uL (0.0-0.8); Eosinophils % 1.8 %; Hematocrit 34.6 % (37.0-47.0); Lymphocytes # 0.6 10^3/uL (0.8-4.8); Lymphocytes % 7.1 %; Mean Corpuscular HGB Conc 34.7 g/dL (30.0-36.0); Mean Corpuscular Hemoglobin 32.2 pg (28.0-34.0); Mean Corpuscular Volume 92.8 fl (81-99); Monocytes # 0.8 10^3/uL (0.2-0.9); Monocytes % 10.9 %; Neutrophils # 6.09 10^3/uL (1.8-7.7); Neutrophils % 79.2 %; Nucleated Red Blood Cells % 0 %; Platelet Count 115 10^3/cmm (130-400); Red Blood Count 3.73 10^6/uL (4.1-5.3); Red Cell Distribution Width 14.1 % (12.1-15.1); White Blood Count 7.7 10^3/uL (4.0-10.0)
[2021-10-07] MEDS: famotidine 20 mg/2 mL INJ IVP ×2 (06:16→17:33)
[2021-10-07] MEDS: sodium chloride 0.9% 1,000 ML 75 ML IV ×2 (06:20→20:57)
[2021-10-07 06:35] LABS: Alanine Aminotransferase 6 U/L (0-33); Albumin Level 3.8 g/dL (3.5-5.2); Alkaline Phosphatase 58 IU/L (35-105); Anion Gap 19.8 (5-19); Aspartate Amino Transferase 12 U/L (0-32); Blood Urea Nitrogen 10 mg/dL (8-23); Calcium 8.7 mg/dL (8.5-10.5); Carbon Dioxide 23 mmol/L (22-29); Chloride 93 mmol/L (98-107); Globulin 2.7 g/dL (1.3-4.6); Glomerular Filtration Rate 124.6 mL/min (90-130); Glucose 61 mg/dL (65-115); Magnesium 1.6 mg/dL (1.7-2.3); Osmolality Calculated 273 mOsm/kg (285-295); Phosphorus 2.2 mg/dL (2.5-4.5); Sodium 133 mmol/L (136-145); Total Bilirubin 0.7 mg/dL (0.15-1.2); Total Protein 6.5 g/dL (6.6-8.7)
[2021-10-07 07:00] LABS: Potassium 2.8 mmol/L (3.5-5.1)
[2021-10-07] MEDS: sennosides 8.6 mg Tablet PO ×2 (08:46→17:48)
[2021-10-07] MEDS: polyethylene glycol 3350 Pkt 17 gm PO (08:46)
[2021-10-07] MEDS: pregabalin 150 mg Capsule PO ×3 (08:46→20:57)
[2021-10-07] MEDS: venlafaxine ER (24HR) 150 mg Capsule PO (08:47)
[2021-10-07] MEDS: rivaroxaban 10 mg Tablet 20 MG PO (08:47)
[2021-10-07] MEDS: levothyroxine 50 mcg Tablet PO (08:47)
--- NOTE | 2021-10-07 11:53 | PC.CHAP ---
Pastoral Care Encounter/Spiritual Assessment Type of Contact [] Declined brake linings coater visit [] Patient/Family/Request visit [] Outpatient visit [] Follow-up visit [] Physician referral [] Code/Alert [x] Routine visit [] Staff referral [] Actively dying [] Patient sleeping [] Family support [] [] Out of room [] Palliative care [] [] Receiving care in room [] Pre-surgical visit [] Trauma [] Long length of stay [] ICU visit [] Other: Relational/Emotional Strength [x] Patient feels connected with others/family/visitors/staff [] Distress [] Loneliness/isolation [] Abandonment Spirituality of Patient [x] Person of Anuradha [] Attends Yazidism of their Anuradha [x] Believes in Prayer [] Reads Bible or Mandaen materials [x] There are Spiritual issues to be addressed [employer]er Interventions [x] Prayer [x] Active listening [x] Non-anxious presence [x] Spiritual/emotional support [] Crisis/trauma care [] Spiritual counseling [] Bereavement support [] Provided bereavement packet [] Provided Bible/devotional materials [] Provided toy/stuffed animal, coloring book to patient or family member [] Provided Communion [] Anointing/[place] [] Salvation [x] Completed spiritual assessment [] Other: Impact on Illness or Injury [] Angry [] Fearful [] Anxious [] Often cries [] Exhaustion [] Unable to work [] Unable to attend judaism [] Unable to walk/stand [] Unable to read [] Unable to drive [] Unable to eat/drink [] Unable to sleep [] Unable to be with family [] Patient intubated [] Other: Summary Pt has cancer and has had multiple issues in the last two months. We discussed her spiritual health and Pt indicated she feels it is lacking. She told brake linings coater she has been baptized but did ask how to speak with God. Pt stated she feels the need to attend restorationist again and there are a couple close to her she thinks she can get her to give her a ride to. I assured her if she contacted the restorationist and needed a ride, they would make sure she had one. She stated she has several Bibles at home and Chin Strap Sewer encouraged her to read them. Time spent with patient 20m
--- NOTE | 2021-10-07 13:30 | PM.PN ---
Subjective Subjective: Interval history: Patient was seen and examined this morning, currently she is doing fine, continue to pass gas, Denies any abdominal pain, nausea vomiting today, tolerating full liquid diet. Medications: Reviewed: Yes Vitals/I&O/Wt Last Vital Signs Temp 98.2 F 10/07/21 12:00 Pulse 80 10/07/21 12:00 Resp 16 10/07/21 12:00 BP 148/62 10/07/21 12:00 Pulse Ox 96 10/07/21 12:00 10/06/21 10/07/21 10/07/21 22:59 06:59 14:59 Intake Total 725 / 725 1125 / 1850 720 / 720 Balance 725 / 725 1125 / 1850 720 / 720 Physical Exam Const: COMMON NORMALS: patient oriented x3 HENMT: COMMON NORMALS: normocephalic and atraumatic HEAD & SCALP: normocephalic and atraumatic Chest: CHEST: Yes Symmetrical chest wall rise Resp: COMMON NORMALS: clear to auscultation bilaterally EFFORT & INSPECTION: Yes symmetric chest movement AUSCULTATION: clear to auscultation bilaterally Cardio: COMMON NORMALS: regular rate, regular rhythm, S1 normal heart sound present, S2 normal heart sound present, No gallops present (Cardio), No murmurs present (Cardio), No rub (Cardio) and Peripheral pulses 2+ throughout RATE: regular rate RHYTHM: regular rhythm HEART SOUNDS: S1 normal heart sound present and S2 normal heart sound present PERIPHERAL PULSES: Peripheral pulses 2+ throughout GI: COMMON NORMALS: Normal to inspection, nondistended, normoactive bowel sounds present, Soft to palpation, non-tender, No hepatosplenomegaly present and no masses AUSCULTATION: Yes normoactive bowel sounds PALPATION: Yes Soft to palpation and Yes No hepatosplenomegaly present RECTAL EXAM: deferred Extremity: COMMON NORMALS: no clubbing, cyanosis or edema and no pedal edema Neuro: COMMON NORMALS: patient oriented x3 Data : 10/07/21 05:14 10/07/21 05:14 A&P Assessment and plan (1) Small bowel obstruction: Acute on chronic small bowel obstruction CT scan of the abdomen pelvis shows 1. Findings consistent with a partial small bowel obstruction. The transition point is at the level of a necrotic mass emanating from the right psoas muscle. It is uncertain whether this is due to an adhesion adjacent to the mass, or if the mass could be invading the adjacent small bowel. There is complete collapse of virtually all small bowel loops beyond the transition point at this time, suggesting a long-term at least partial small bowel obstruction. -Was transferred up to [place] roughly a month ago, for consideration of surgical intervention, was not deemed a surgical candidate Plan: -Currently ER hold -N.p.o. -IV fluids -Place NG tube -Monitor for stooling, serial abdominal exams -Is on chronic opiates, continue methylnaltrexone, MiraLAX, senna -Full code -Xarelto for DVT prophylaxis Right lower lobe infiltrate, likely aspiration event, start Zosyn Hyponatremia initial serum sodium 124, with IV hydration it has improved to 128, continue fluids History of recurrent ovarian cancer, with evidence of right pelvic mass -There is a necrotic mass in the right retroperitoneum. This is stable in size measuring 5.3 x 4.2 x 4.1 cm (series 601, image 43, and series 2, image 45) Status: Acute (2) Hyponatremia: Status: Acute (3) Recurrent UTI: Status: Acute Attestations Medical Necessity Statement*: Patient is to be in hospital for management of small bowel obstruction Coding Level of Care Code Acute Print Developer Automatic for Chg Fwd Exam Detailed Diagnoses Small bowel obstruction K56.609 Hyponatremia E87.1 Recurrent UTI N39.0
--- NOTE | 2021-10-07 19:25 | PC.NURSE ---
Shift report received from Rosita OBRIEN. Patient awake in bed. 3L NC. IV patent /infusing NS at 75mL/hr. No needs voiced at this time.
[2021-10-07] MEDS: trazodone 150 mg Tablet PO (20:57)
[2021-10-08] VITALS (8 sets, daily range): BP systolic 145–188; BP diastolic 86–95; PULSE 71–106; RESP 15–18; TEMP 37.2–37.4; O2SAT 95–97
[2021-10-08 05:39] LABS: Basophils % 0.6 %; Eosinophils # 0.2 10^3/uL (0.0-0.8); Eosinophils % 3.8 %; Hematocrit 34.8 % (37.0-47.0); Hemoglobin 11.7 g/dL (11.5-15.3); Lymphocytes # 0.8 10^3/uL (0.8-4.8); Lymphocytes % 16.5 %; Mean Corpuscular HGB Conc 33.6 g/dL (30.0-36.0); Mean Corpuscular Hemoglobin 32.1 pg (28.0-34.0); Mean Corpuscular Volume 95.3 fl (81-99); Mean Platelet Volume 10.2 fL (7.4-10.4); Monocytes # 0.6 10^3/uL (0.2-0.9); Monocytes % 13.2 %; Neutrophils # 3.15 10^3/uL (1.8-7.7); Neutrophils % 65.7 %; Nucleated Red Blood Cells % 0 %; Platelet Count 95 10^3/cmm (130-400); Red Blood Count 3.65 10^6/uL (4.1-5.3); Red Cell Distribution Width 14.2 % (12.1-15.1); White Blood Count 4.8 10^3/uL (4.0-10.0)
[2021-10-08 05:56] LABS: Alanine Aminotransferase 6 U/L (0-33); Albumin Level 3.4 g/dL (3.5-5.2); Alkaline Phosphatase 52 IU/L (35-105); Aspartate Amino Transferase 11 U/L (0-32); Blood Urea Nitrogen 6 mg/dL (8-23); Calcium 8.4 mg/dL (8.5-10.5); Carbon Dioxide 25 mmol/L (22-29); Chloride 97 mmol/L (98-107); Globulin 2.5 g/dL (1.3-4.6); Glomerular Filtration Rate 124.6 mL/min (90-130); Glucose 80 mg/dL (65-115); Magnesium 1.7 mg/dL (1.7-2.3); Osmolality Calculated 275 mOsm/kg (285-295); Phosphorus 2.8 mg/dL (2.5-4.5); Sodium 134 mmol/L (136-145); Total Bilirubin 0.4 mg/dL (0.15-1.2); Total Protein 5.9 g/dL (6.6-8.7)
[2021-10-08] MEDS: famotidine 20 mg/2 mL INJ IVP (06:34)
[2021-10-08] MEDS: oxyCODONE IR 30 mg Tablet PO (06:40)
[2021-10-08] MEDS: polyethylene glycol 3350 Pkt 17 gm PO (09:08)
[2021-10-08] MEDS: levothyroxine 50 mcg Tablet PO (09:08)
[2021-10-08] MEDS: venlafaxine ER (24HR) 150 mg Capsule PO (09:08)
[2021-10-08] MEDS: rivaroxaban 10 mg Tablet 20 MG PO (09:09)
[2021-10-08] MEDS: pregabalin 150 mg Capsule PO (09:09)
--- NOTE | 2021-10-08 10:33 | P.DS_ITS ---
Discharge Providers Date of Admission: 10/05/21 16:42 Date of Discharge: October 08, 2021 Attending Provider at Admission: Clive Chacon MD Attending Provider at Discharge: Krzysztof Moore MD Diagnoses at Discharge Discharge Diagnosis (1) Small bowel obstruction: Status: Acute (2) Hyponatremia: Status: Acute (3) Recurrent UTI: Status: Acute Reason for Visit Reason for Visit: BOWEL BLOCKAGE Hospital Course Hospital Course a 61 year old female with O2 dependent COPD, Guynn malignancy, ovarian cancer, history of recurrent small bowel obstructions not deemed an appropriate surgical candidate according to patient at [facility], who presents [facility] due to 12 history of nausea, abdominal pain, decreased stooling. Patient was admitted for the management of small bowel obstruction CT Abdomen And Pelvis With Contrast showed:indings consistent with a partial small bowel obstruction. NG tube was placed, it was placed to low intermittent suction, she was n.p.o. initially, pain control IV hydration, empirically on IV antibiotics for possible aspiration pneumonia, She responded well to above medical management, at the time of discharge she was passing stool, she denied any abdominal pain nausea vomiting, she was tolerating diet well. She was also managed for hypovolemic hyponatremia, responded well to IV hydration, serum sodium was nearing to normal, other electrolyte abnormality correction was also undertaken. She is being discharged in stable condition to home. Physical Exam Const: COMMON NORMALS: patient oriented x3 HENMT: COMMON NORMALS: normocephalic and atraumatic HEAD & SCALP: normocephalic and atraumatic Chest: CHEST: Yes Symmetrical chest wall rise Resp: COMMON NORMALS: clear to auscultation bilaterally EFFORT & INSPECTION: Yes symmetric chest movement AUSCULTATION: clear to auscultation bilaterally Cardio: COMMON NORMALS: regular rate, regular rhythm, S1 normal heart sound present, S2 normal heart sound present, No gallops present (Cardio), No murmurs present (Cardio), No rub (Cardio) and Peripheral pulses 2+ throughout RATE: regular rate RHYTHM: regular rhythm HEART SOUNDS: S1 normal heart sound present and S2 normal heart sound present PERIPHERAL PULSES: Peripheral pulses 2+ throughout GI: COMMON NORMALS: Normal to inspection, nondistended, normoactive bowel sounds present, Soft to palpation, non-tender, No hepatosplenomegaly present and no masses AUSCULTATION: Yes normoactive bowel sounds PALPATION: Yes Soft to palpation and Yes No hepatosplenomegaly present RECTAL EXAM: deferred Extremity: COMMON NORMALS: no clubbing, cyanosis or edema and no pedal edema Neuro: COMMON NORMALS: patient oriented x3 Discharge Data Data Completed and Pending: Completed Studies During Hospitalization Category Date Time Status CT abdomen pelvis w con* [id number] Urge nt Cat Scan 10/05/21 12:26 Completed XR chest 1V juan ble [id number] Routine Exams 10/06/21 14:43 Completed XR chest 1V juan ble [id number] Stat Exams 10/05/21 16:41 Completed Pending at discharge Category Date Time Status Complete Blood Co unt w/Auto AM LABS Lab 10/09/21 04:00 Ordered Comprehensive Met abolic Panel AM LA BS Lab 10/09/21 04:00 Ordered Magnesium AM LABS Lab 10/09/21 04:00 Ordered Phosphorus AM LAB S Lab 10/09/21 04:00 Ordered Labs from last 24 hours 10/08/21 10/08/21 05:02 05:02 WBC 4.8 RBC 3.65 L Hgb 11.7 Hct 34.8 L MCV 95.3 MCH 32.1 MCHC 33.6 RDW 14.2 Plt Count 95 L MPV 10.2 Neut % (Auto) 65.7 Lymph % (Auto) 16.5 [place] % (Auto) 13.2 Eos % (Auto) 3.8 Baso % (Auto) 0.6 Neut # (Auto) 3.15 Lymph # (Auto) 0.8 [place] # (Auto) 0.6 Eos # (Auto) 0.2 Baso # (Auto) 0.0 Nucleated RBC % (a uto) 0 Nucleated RBCs # 0.0 Sodium 134 L Potassium 3.0 L Chloride 97 L Carbon Dioxide 25 Anion Gap 15.0 BUN 6 L Creatinine 0.5 GFR Calculation 124.6 Glucose 80 Calculated Osmolal ity 275 L Calcium 8.4 L Phosphorus 2.8 Magnesium 1.7 Total Bilirubin 0.4 AST 11 ALT 6 Alkaline Phosphata se 52 Total Protein 5.9 L Albumin 3.4 L Globulin 2.5 Vitals: Last Vital Signs Temp 99.3 F 10/08/21 07:29 Pulse 93 10/08/21 09:41 Resp 15 10/08/21 09:41 BP 188/92 10/08/21 07:29 Pulse Ox 96 10/08/21 09:41 Discharge Plan Discharge Patient Disposition: Home Condition: Stable Prescriptions: Continued esomeprazole magnesium [Nexium] 40 mg capsule,delayed release(DR/EC) 40 mg PO BID RF: 0 venlafaxine [Effexor XR] 150 mg capsule,extended release 24hr 150 mg PO DAILY RF: 0 levothyroxine [Synthroid] 50 mcg tablet 50 mcg PO DAILY RF: 0 Xarelto 20 mg tablet 20 mg PO DAILY RF: 0 Hold Instructions: Resume on 03/14/21. Resume normal dose on 03/14/2021 sennosides [senna] 8.6 mg Tablet 8.6 mg PO BID RF: 0 pregabalin [Lyrica] 150 mg capsule 150 mg PO TID RF: 0 enalapril maleate [Vasotec] 10 mg tablet 10 mg PO BID RF: 0 ondansetron HCl 4 mg tablet 4 mg PO Q4H PRN (Reason: Nausea) RF: 0 albuterol sulfate 90 mcg/actuation HFA aerosol inhaler 2 puff INHALATION Q6H PRN (Reason: Shortness Of Breath) RF: 0 lactulose [Generlac] 10 gram/15 mL solution 30 ml PO Q2H PRN (Reason: Constipation) RF: 0 Lynparza 150 mg Tablet 300 mg PO BID RF: 0 Relistor 8 mg/0.4 mL syringe 8 mg SUBCUT EVERY OTHER DAY PRN (Reason: constipation) Qty: 2.8 RF: 0 carisoprodol 350 mg tablet 350 mg PO TID PRN (Reason: Pain) RF: 0 oxycodone 30 mg tablet 30 - 60 mg PO Q6H PRN (Reason: Pain) RF: 0 trazodone 150 mg Tablet 150 mg PO BEDTIME RF: 0 fentanyl 100 mcg/hr patch 72 hour 1 patch topical Q72H RF: 0 Discharge Orders: Discharge Order (Routine); Ordered 10/08/21 Ordered By: Krzysztof Moore Referrals: [facility] [Other] Ravi Lynne MD [Hospitalist] - 10/20/21 9:00 am Discharge Diet: Regular Patient Instructions: Urinary Tract Infection in Women (DC), Hyponatremia (GEN), Bowel Obstruction (GEN), Opioid Safety Discharge Attestations Time Spent in Discharge Care*: less than 30 min Specific Discharge Activities: educating patient, educating and/or supporting family/caregiver, discussing with pcp/other providers, discussing with behavioral health case manager/social workers/dc planners, documenting/other paperwork and evaluating patient/reviewing data Status at Discharge: Cognitive status at discharge: cognitively intact , Behavioral status at discharge: cooperative , Quality Metrics Clinical Quality Measures During this hospital stay, did patient experience: None Coding Level of Care Code Acute Chg FW DC note Exam Detailed Diagnoses Small bowel obstruction K56.609 Hyponatremia E87.1 Recurrent UTI N39.0
[2021-10-08] MEDS: sodium chloride 0.9% 1,000 ML 75 ML IV (10:58)
--- NOTE | 2021-10-08 11:00 | PC.SOCIAL ---
Pg 2 IMM Explained to pt Pg 2 IMM. No questions voiced. Provided pt a copy. Initialed, dated, & timed a copy & placed in chart.
== END 2021-10-08 12:55 | disposition home health service (06) | DRG 388 ==
LOC: ER 17:16 → ER IP 19:14 → MEDSURG 10-06 05:43 → ER IP 10-06 07:27 → MEDSURG 10-06 14:58
PROVIDERS: Admitting Provider Family Medicine; Emergency Provider Emergency Medicine; PCP Internal Medicine Medical Oncology; Visit Provider Internal Medicine
DX: K56.600 Partial intestinal obstruction, unspecified as to cause (principal); J69.0 Pneumonitis due to inhalation of food and vomit; E87.1 Hypo-osmolality and hyponatremia; N39.0 Urinary tract infection, site not specified; Z85.43 Personal history of malignant neoplasm of ovary; Z79.01 Long term (current) use of anticoagulants; J44.9 Chronic obstructive pulmonary disease, unspecified; Z86.718 Personal history of other venous thrombosis and embolism; Z87.01 Personal history of pneumonia (recurrent); Z90.49 Acquired absence of other specified parts of digestive tract; F17.210 Nicotine dependence, cigarettes, uncomplicated; Z99.81 Dependence on supplemental oxygen; R19.09 Other intra-abdominal and pelvic swelling, mass and lump; Z79.51 Long term (current) use of inhaled steroids; Z79.891 Long term (current) use of opiate analgesic
CPT/HCPCS: 36415; 71045; 74177; 80048; 80053; 83605; 83690; 83735; 84100; 84145; 84443; 85025; 96365; 96375; 99291; J1170; J2060; J2270; J2405; J2543; J3490; J7030; J7040; Q9967

== ENCOUNTER 2021-10-09 08:41 | Inpatient (IN) | payer MEDICARE, OTHER, SELFPAY ==
[2021-10-09] VITALS (10 sets, daily range): BP systolic 123–203; BP diastolic 74–105; PULSE 84–98; RESP 15–18; TEMP 36.6–36.9; O2SAT 94–99; BMI 17.5
--- NOTE | 2021-10-09 09:31 | CT_ITS ---
WS: [id number] CT ABDOMEN AND PELVIS WITH CONTRAST HISTORY: Generalized abdominal pain with vomiting. TECHNIQUE: Imaging performed of the abdomen and pelvis with IV contrast. Single phase imaging of the abdomen. Coronal and sagittal reformats are submitted. All CT scans at [facility] use at [facility] st one of these dose optimization techniques: automated exposure control; mA and/or kV adjustment per patient size (includes targeted exams where dose is matched to clinical indication); or iterative re construction. IV CONTRAST: Omnipaque 300; 75 mL IV. Oral contrast: No DLP: 618.87 mGy.cm COMPARISON: 10/05/2020 Lower thorax: Mild dependent changes and reticular thickening at the lung bases with no interval mahmood ge. Heart is normal size. No hiatal hernia. Liver/biliary system: Normal size with no intrahepatic dilatation. Gallbladder: Normal. No gallstones or wall thickening. No pericholecystic fluid. Pancreas: Atrophied pancreas. Spleen: Normal size spleen. No mass or infarct. Adrenal glands: Normal. Right kidney: Severe atrophy of the RIGHT kidney. Double pigtail RIGHT ureteral stent remains in good position. The proximal pigtail is partially uncoiled but remains positioned in the renal pelvis. The re is continued dilatation of the RIGHT renal pelvis and ureter despite the pigtail catheter. Left kidney: Normal. Aorta: Moderate atherosclerotic plaque. No aneurysm. There is a necrotic irregularly shaped mass in the RIGHT pelvis extending into the RIGHT psoas muscle and encasing and displacing the RIGHT ureter. This mass is likely causing the ureteral obstruction. Mass has been previously described and measures 3.7 x 4.4 cm. Free fluid: Small amount of free fluid in the pelvis. GI tract: There is severe dilatation of the stomach with fluid. Marked dilatation of small bowel loop s since the prior examination. Small bowel loops are markedly distended displacing the adjacent soft tissue structures. In the central abdomen at the level of the umbilicus there are confluent loops of small bowel which are nondistended with adjacent fecalization. This may be the site of the obstructio n. No change in the RIGHT colectomy. Abdominal wall: Unremarkable abdominal wall. No hernia. Pelvis: Small amount of free fluid in the pelvis. Urinary bladder is minimally distended and displace d and compressed anteriorly. Bones: Bones are osteopenic. Degenerative changes at the femoral heads. CT/CT abdomen pelvis w con* [id number] IMPRESSION: 1. Progressive small bowel dilatation and high-grade obstruction. Confluent lo ops of small bowel near the umbilicus and the surgical anastomosis may be the s ite of obstruction. 2. Double pigtail RIGHT ureteral stent remains in good position with continued hydronephrosis. 3. No change in the metastatic deposit in the RIGHT retroperitoneum invading t he psoas muscle as previously described. 4. No free air.
--- NOTE | 2021-10-09 09:31 | ECG_ITS ---
[facility] Test Date: 2021-10-09 Pat Name: Nisreen Carrasco Department: Room: Gender: Female Clinical Lab Clerk: : 1960 Requested By: Roberto Carlos Patel Order Number: [id number] Franco MD: Sergei Pink M.D. Measurements Intervals [place] Rate: 94 P: 83 MT: 160 QRS: 75 QRSD: 90 T: 70 QT: 377 QTc: 472 Interpretive Statements SINUS RHYTHM POSSIBLE RIGHT ATRIAL ENLARGEMENT [0.25mV P-WAVE] LEFT ATRIAL ENLARGEMENT [-0.15mV P-WAVE IN V1/V2] Compared to ECG 07/13/2021 16:52:41 Atrial abnormality now present Electronically Signed On 10-09-2021 20:39:05 DIRECTOR OF FINANCIAL AID by Sergei Pink M.D. [id number]
--- NOTE | 2021-10-09 09:31 | XRR_ITS ---
PROCEDURE INFORMATION: Exam: XR Chest Exam date and time: 10/09/2021 9:31 AM Age: 61 years old Clinical indication: Cough and dyspnea; Additional info: Dyspnea/cough TECHNIQUE: Imaging protocol: XR of the chest. Views: 1 view. COMPARISON: CR XR chest 1V portable [id number] 10/06/2021 2:58 PM FINDINGS: Lungs: There is stable bibasilar pulmonary scarring. No acute pulmonary infiltrates. Pleural spaces: Unremarkable. No pleural effusion. No pneumothorax. Heart/Mediastinum: Unremarkable. No cardiomegaly. Bones/joints: Unremarkable. XR/XR chest 1V portable [id number] IMPRESSION: Stable scarring in the lung bases. No acute abnormality.
[2021-10-09 09:46] LABS: Basophils % 0.3 %; Eosinophils % 0.2 %; Hematocrit 42.5 % (37.0-47.0); Hemoglobin 14.7 g/dL (11.5-15.3); Lymphocytes # 0.5 10^3/uL (0.8-4.8); Lymphocytes % 8.3 %; Mean Corpuscular HGB Conc 34.6 g/dL (30.0-36.0); Mean Corpuscular Hemoglobin 32.3 pg (28.0-34.0); Mean Corpuscular Volume 93.4 fl (81-99); Mean Platelet Volume 9.6 fL (7.4-10.4); Monocytes # 0.4 10^3/uL (0.2-0.9); Monocytes % 7.2 %; Neutrophils % 83.5 %; Nucleated Red Blood Cells % 0 %; Platelet Count 145 10^3/cmm (130-400); Red Blood Count 4.55 10^6/uL (4.1-5.3); White Blood Count 5.9 10^3/uL (4.0-10.0)
[2021-10-09] MEDS: iohexol 300 mg/mL 100 mL Btl IV (09:55)
--- NOTE | 2021-10-09 10:17 | W.ED.ABDPA2 ---
HPI - Abdominal Pain General: Chief Complaint: Abdominal Pain Stated Complaint: Lower ABD Pain Time Seen by Provider: 10/09/21 09:02 History of Present Illness: HPI narrative: 61-year-old female presents to the emergency room complaining of abdominal pain. Patient had been hospitalized with small bowel obstruction hyponatremia and recurrent UTI. She has a history of ovarian cancer is at multiple abdominal surgeries and multiple small bowel obstructions in the past. She has been evaluated at [facility] and they had decided that patient was not a surgical candidate because of her tumor. she has been getting oral chemotherapeutics but this is stopped since her last hospitalization. Patient went home his complaining of abdominal pain and discomfort and bloating nausea and vomiting. Previous hospitalization notes were reviewed this morning, patient was discharged yesterday. MD elicited complaint: abdominal pain Pertinent past history: other (Ovarian CA, previous small bowel obstruction) Onset (ago): hour(s) Pain Consistency: constant Location: Diffuse Severity: moderate Quality: cramping Radiation: none Migration to: no migration Exacerbating factors: eating, vomiting and movement Relieving factors: rest Context: history of similar episodes Associated Symptoms: Reports anorexia, bloating, change in bowel habits, GI cramping, nausea and poor appetite; Denies belching, change in stool character, chills, coffee ground emesis, constipation, diarrhea, dyspepsia, dysuria, excessive flatus, fever(s), heartburn, hematochezia, hematuria, hematemesis, fecal incontinence, loose stools, melena and syncope Related Data: Date of Last Menstrual Period: 12/01/19 Review of Systems Const: Denies: fever(s) or chills ENMT: Denies: throat pain, ear or mastoid pain, nasal discharge or nasal congestion Card: Denies: syncope Resp: Denies: dyspnea, productive cough or non-productive cough GI: Reports: nausea, bloating, GI cramping and change in bowel habits; Denies: hematemesis, coffee ground emesis, heartburn, diarrhea, constipation, belching, excessive flatus, fecal incontinence, change in stool character, hematochezia or melena : Denies: dysuria or hematuria Skin/Breast: Denies: rash or pruritus PFSH ED PFSH: Medical History Bacteremia Chronic anticoagulation Chronic pain COPD (chronic obstructive pulmonary disease) Chronically on 3 L of oxygen COPD exacerbation Depression Extrinsic ureteral obstruction Fungemia History of DVT (deep vein thrombosis) Hydronephrosis, right Hyponatremia Hypothyroidism Hypoxia Malnutrition Multifocal pneumonia Ovarian cancer on right Pelvic pain in female Recurrent UTI Renal failure SBO (small bowel obstruction) Secondary malignant neoplasm of other specified sites Small bowel obstruction Small bowel obstruction Small bowel obstruction Small bowel obstruction Transaminitis VRE bacteremia Surgical History History of hysterectomy with bilateral oophorectomy History of right hemicolectomy S/P ureteral stent placement Family History Mother , at age 59 Cancer breast Myocardial infarction (lateral wall) Father Cancer prostate cancer Pacemaker Other CAD (coronary artery disease) Hypertension Social History Smoking and tobacco status: current every day smoker Alcohol intake: never Adopted: No Caregiver/support person: No Lives independently: No Household members: spouse Marital status: Current occupational status: disabled History of recent travel: No Female Reproductive History: Date of last menstrual period: 12/01/19 Physical Exam Const: GENERAL APPEARANCE: cooperative ORIENTATION/CONSCIOUSNESS: Yes awake, Yes oriented to person, Yes oriented to place and Yes oriented to time HENMT: COMMON NORMALS: normocephalic, atraumatic, hearing grossly normal bilaterally, external ears normal, EAC's normal, TM's normal bilaterally, Normal nasal mucous membranes and turbinates present, moist oral mucous membranes and oropharynx normal HEAD & SCALP: normocephalic and atraumatic NOSE: Normal nasal mucous membranes and turbinates present EXTERNAL EAR: Yes external ears normal EXTERNAL AUDITORY CANAL: EAC's normal TYMPANIC MEMBRANE: TM's normal bilaterally Neck/C-Spine: COMMON NORMALS: no JVD Resp: COMMON NORMALS: normal respiratory effort, No retractions, No use of accessory muscles and clear to auscultation bilaterally AUSCULTATION: clear to auscultation bilaterally Cardio: COMMON NORMALS: no JVD, regular rate, regular rhythm and No murmurs present (Cardio) RATE: regular rate RHYTHM: regular rhythm GI: AUSCULTATION: Yes Absent bowel sounds PALPATION: Yes Tenderness to palpation present (GI) (Diffuse tenderness) PERCUSSION: tympanic to percussion Extremity: COMMON NORMALS: normal to inspection, capillary refill normal, no clubbing, cyanosis or edema, no calf tenderness and no pedal edema Neuro: SENSORIUM/ORIENTATION: Yes oriented to person, Yes oriented to place and Yes oriented to time Skin: COMMON NORMALS: no rashes or lesions noted GENERAL SKIN EXAM: no rashes or lesions noted Course Vital Signs: Vital signs: Vital Signs Temperature 98.4 F 10/16/21 07:14 Pulse Rate 107 H 10/16/21 07:14 Respiratory Rate 17 10/16/21 07:14 Blood Pressure 169/85 10/16/21 07:14 Pulse Oximetry 94 10/16/21 07:14 MDM - Abdominal Pain MDM Narrative: Medical decision making narrative: CT confirms small bowel obstruction will admit to surgical consult discussed with hospitalist and surgeon orders written labs and imaging reviewed as found on the chart Lab Data: Labs: Lab Results 10/09/21 10/09/21 10/09/21 09:30 09:36 09:36 WBC 5.9 10^3/uL 10^3/ uL (4.0-10.0) RBC 4.55 10^6/uL 10^6 /uL (4.1-5.3) Hgb 14.7 g/dL g/dL (11.5-15.3) Hct 42.5 % % (37.0-47.0) MCV 93.4 fl fl (81-99) MCH 32.3 pg pg (28.0-34.0) MCHC 34.6 g/dL g/dL (30.0-36.0) RDW 14.0 % % (12.1-15.1) Plt Count 145 10^3/cmm D 1 0^3/cmm (130-400) MPV 9.6 fL fL (7.4-10.4) Neut % (Auto) 83.5 % % Lymph % (Auto) 8.3 % % [place] % (Auto) 7.2 % % Eos % (Auto) 0.2 % % Baso % (Auto) 0.3 % % Neut # (Auto) 4.90 10^3/uL 10^3 /uL (1.8-7.7) Lymph # (Auto) 0.5 10^3/uL L 10^ 3/uL (0.8-4.8) [place] # (Auto) 0.4 10^3/uL 10^3/ uL (0.2-0.9) Eos # (Auto) 0.0 10^3/uL 10^3/ uL (0.0-0.8) Baso # (Auto) 0.0 10^3/uL 10^3/ uL (0.0-0.1) Nucleated RBC % (a uto) 0 % % Nucleated RBCs # 0.0 /100WBC /100W BC Sodium 136 mmol/L mmol/L (136-145) Potassium 3.1 mmol/L L mmol /L (3.5-5.1) Chloride 89 mmol/L L mmol/ L (98-107) Carbon Dioxide 28 mmol/L mmol/L (22-29) Anion Gap 22.1 H (5-19) BUN 4 mg/dL L mg/dL (8-23) Creatinine 0.4 mg/dL L mg/dL (0.5-0.9) GFR Calculation 161.2 mL/min H mL /min (90-130) Glucose 107 mg/dL mg/dL (65-115) Calculated Osmolal ity 279 mOsm/kg L mOs m/kg (285-295) Lactic Acid Calcium 9.6 mg/dL mg/dL (8.5-10.5) Magnesium 1.7 mg/dL mg/dL (1.7-2.3) Total Bilirubin 0.6 mg/dL mg/dL (0.15-1.2) AST 16 U/L U/L (0-32) ALT 9 U/L U/L (0-33) Alkaline Phosphata se 71 IU/L IU/L (35-105) Total Protein 7.4 g/dL g/dL (6.6-8.7) Albumin 4.5 g/dL g/dL (3.5-5.2) Globulin 2.9 g/dL g/dL (1.3-4.6) 10/09/21 09:36 WBC RBC Hgb Hct MCV MCH MCHC RDW Plt Count MPV Neut % (Auto) Lymph % (Auto) [place] % (Auto) Eos % (Auto) Baso % (Auto) Neut # (Auto) Lymph # (Auto) [place] # (Auto) Eos # (Auto) Baso # (Auto) Nucleated RBC % (a uto) Nucleated RBCs # Sodium Potassium Chloride Carbon Dioxide Anion Gap BUN Creatinine GFR Calculation Glucose Calculated Osmolal ity Lactic Acid 0.8 mmol/L mmol/L (0.5-2.2) Calcium Magnesium Total Bilirubin AST ALT Alkaline Phosphata se Total Protein Albumin Globulin Discharge Plan Discharge Patient Disposition: Admitted As Inpatient Admit Provider: Damon Hernandez Clinical Impression: SBO (small bowel obstruction), Ovarian cancer on right, COPD (chronic obstructive pulmonary disease), History of DVT (deep vein thrombosis), Hypokalemia Condition: Stable Coding Level of Care Code 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
[2021-10-09 10:37] LABS: Lactic Sepsis W/Reflex 0.8 mmol/L (0.5-2.2)
[2021-10-09 10:39] LABS: Alanine Aminotransferase 9 U/L (0-33); Albumin Level 4.5 g/dL (3.5-5.2); Alkaline Phosphatase 71 IU/L (35-105); Anion Gap 22.1 (5-19); Aspartate Amino Transferase 16 U/L (0-32); Blood Urea Nitrogen 4 mg/dL (8-23); Calcium 9.6 mg/dL (8.5-10.5); Carbon Dioxide 28 mmol/L (22-29); Chloride 89 mmol/L (98-107); Globulin 2.9 g/dL (1.3-4.6); Glomerular Filtration Rate 161.2 mL/min (90-130); Glucose 107 mg/dL (65-115); Osmolality Calculated 279 mOsm/kg (285-295); Potassium 3.1 mmol/L (3.5-5.1); Sodium 136 mmol/L (136-145); Total Bilirubin 0.6 mg/dL (0.15-1.2); Total Protein 7.4 g/dL (6.6-8.7)
[2021-10-09] MEDS: pantoprazole 40 mg SDV 80 MG IVP (11:53)
[2021-10-09] MEDS: LORazepam 2 mg/mL INJ 1 mL 1 MG IVP (11:55)
[2021-10-09] MEDS: morphine 4 mg/mL SDV 1 mL IVP (11:57)
--- NOTE | 2021-10-09 12:26 | XRR_ITS ---
PROCEDURE INFORMATION: Exam: XR Chest Exam date and time: 10/09/2021 12:26 PM Age: 61 years old Clinical indication: Device placement; Ng tube; Additional info: Post ng tube insertion TECHNIQUE: Imaging protocol: XR of the chest. Views: 1 view. COMPARISON: CR XR chest 1V portable [id number] 10/09/2021 9:44 AM FINDINGS: Tubes, catheters and devices: A nasogastric tube is present with tip projecting in the stomach approximately 8 cm below the GE junction. Lungs: Mild atelectasis is present in lung bases. Pleural spaces: Unremarkable. No pleural effusion. No pneumothorax. Heart/Mediastinum: Unremarkable. No cardiomegaly. Bones/joints: Unremarkable. XR/XR chest 1V portable [id number] IMPRESSION: The tip of the nasogastric tube projects on the stomach approximately 8 cm below the GE junction.
--- NOTE | 2021-10-09 12:43 | PM.HP ---
Providers/Chief Complaint Admitting Physician: Damon Hernandez MD Primary Care Provider: Ravi Lynne MD Chief Complaint: Lower ABD Pain History of Present Illness Nisreen Carrasco is a 61 year old female who presents to the hospital with abdominal discomfort, and vomiting bilious material. She has a history of metastatic ovarian cancer, and was recently in the hospital from October 05 through October 08 with small bowel obstruction. reports that after discharge home she did have several small bowel movements, but quickly had return of pain and eventual vomiting. She has not really been able to keep anything down. No fever. No blood in emesis. Review of Systems General: Reports: 10 or more systems reviewed and unremarkable except in HPI and below Const: Denies: fever(s) Eyes: Denies: change in vision ENMT: Denies: throat pain Card: Denies: chest pain Resp: Denies: dyspnea GI: Reports: abdominal pain, nausea and vomiting; Denies: hematemesis, hematochezia or melena : Denies: flank pain Musc: Denies: neck pain Skin/Breast: Denies: rash Neuro: Denies: headache(s) Psych: Denies: anxiety or depression Endo: Denies: polyuria Kashif/Lymph: Denies: easy bruising All/Imm: Denies: urticaria Medications/Allergies Home Medications Medication Instructions Recorded Confirmed Last Taken Type esomeprazole magnesium 40 mg 40 mg PO BID cap 11/29/19 10/09/21 10/08/21 History capsule,delayed release levothyroxine 50 mcg tablet 50 mcg PO DAILY 11/29/19 10/09/21 10/08/21 History rivaroxaban 20 mg tablet 20 mg PO DAILY 11/29/19 10/09/21 10/08/21 History venlafaxine 150 mg 150 mg PO DAILY 11/29/19 10/09/21 10/08/21 History capsule,extended release 24 hr trazodone 150 mg PO BEDTIME 12/01/19 10/09/21 10/08/21 History fentanyl 1 patch TOPICAL Q72H 12/04/19 10/09/21 10/09/21 07:00 History changed 10/09/21 sennosides [senna] 17.2 mg PO BID 07/29/21 10/09/21 10/08/21 History enalapril maleate [Vasotec] 10 mg PO BID 07/31/21 10/09/21 10/09/21 History pregabalin [Lyrica] 150 mg PO TID 07/31/21 10/09/21 10/09/21 History Lynparza 300 mg PO BID 09/07/21 10/09/21 10/05/21 History albuterol sulfate 2 puff INHALATION Q6H PRN 09/07/21 10/09/21 Unknown History lactulose [Generlac] 30 ml PO Q2H PRN 09/07/21 10/09/21 Unknown History ondansetron HCl 4 mg PO Q4H PRN 09/07/21 10/09/21 Unknown History Relistor 8 mg SUBCUT EVERY OTHER DAY PRN 09/08/21 10/09/21 Unknown Rx #2.8 ml carisoprodol 350 mg PO TID PRN 10/05/21 10/09/21 Unknown History oxycodone 30 - 60 mg PO Q6H PRN 10/05/21 10/09/21 10/09/21 07:00 History Allergies Allergy/AdvReac Type Severity Reaction Status Date / Time carboplatin AdvReac ADR-Vomitin Verified 03/10/21 11:00 g PFSH Acute PFSH: Medical History (Updated 10/09/21 @ 12:57 by Damon Hernandez MD) Bacteremia Chronic anticoagulation Chronic pain COPD (chronic obstructive pulmonary disease) Chronically on 3 L of oxygen COPD exacerbation Depression Extrinsic ureteral obstruction Fungemia History of DVT (deep vein thrombosis) Hydronephrosis, right Hyponatremia Hypothyroidism Hypoxia Malnutrition Multifocal pneumonia Ovarian cancer on right Pelvic pain in female Recurrent UTI Renal failure SBO (small bowel obstruction) Secondary malignant neoplasm of other specified sites Small bowel obstruction Small bowel obstruction Small bowel obstruction Small bowel obstruction Transaminitis VRE bacteremia Surgical History History of hysterectomy with bilateral oophorectomy History of right hemicolectomy S/P ureteral stent placement Family History Mother , at age 59 Cancer breast Myocardial infarction (lateral wall) Father Cancer prostate cancer Pacemaker Other CAD (coronary artery disease) Hypertension Social History Smoking and tobacco status: current every day smoker Alcohol intake: never Adopted: No Caregiver/support person: No Lives independently: No Household members: spouse Marital status: Current occupational status: disabled History of recent travel: No Female Reproductive History: Date of last menstrual period: 12/01/19 Vitals/I&O/Wt Last Vital Signs Temp 98.2 F 10/09/21 09:11 Pulse 92 10/09/21 09:11 Resp 16 10/09/21 09:11 BP 203/105 10/09/21 09:11 Pulse Ox 99 10/09/21 09:11 Weight last 48 hrs Weight 50.802 kg Physical Exam Narrative: EXAM NARRATIVE: General exam is an uncomfortable appearing female, about to have an NG placed. HEENT: Atraumatic and normocephalic. Oropharynx clear. Neck is supple no lymphadenopathy or thyromegaly Cardiovascular regular rate and rhythm, no murmur. Note that initial blood pressure was markedly elevated. Abdomen is soft, tenderness mainly periumbilically. No obvious organomegaly. exam is deferred Extremities no cyanosis clubbing or edema, cap refill brisk Skin no rash Neuro no focal deficits Data : 10/09/21 09:36 10/09/21 09:36 Other data: Lactic acid 0.8, calcium 9.6, LFTs normal Chest x-ray some scarring at the bases CT abdomen and pelvis demonstrates progressive small bowel dilation and high-grade obstruction, right pigtail ureteral stent without obstruction, metastatic deposits right retroperitoneal area and no free air. A&P Assessment and plan (1) SBO (small bowel obstruction): High-grade obstruction per CT NG tube placed Surgery consultation N.p.o. Morphine as needed for discomfort Hydration with IV fluids No indication for antibiotics currently. Status: Acute (2) COPD (chronic obstructive pulmonary disease): DuoNeb as needed Continue patient's home oxygen Status: Acute (3) History of DVT (deep vein thrombosis): Hold Xarelto in case surgery is needed. Initiate Lovenox for DVT prophylaxis Status: Acute (4) Ovarian cancer on right: Has recurrent ovarian cancer. This is followed by oncology. This complicates her small bowel obstruction significantly. Status: Acute (5) Hypokalemia: Supplement. Check magnesium level Status: Acute Additional A&P Information Multiple other medical problems as outlined in past medical history Full code currently. I did discuss this with the patient. Hold Xarelto in case surgery is needed. Change to Lovenox 40 mg subcu daily currently. DVT occurred in 2019 and repeat study showed resolution. Will need oral anticoagulant on discharge. 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
[2021-10-09 13:12] LABS: Magnesium 1.7 mg/dL (1.7-2.3)
[2021-10-09] MEDS: enoxaparin 40 mg/0.4 mL Syringe SUBCUT (14:40)
[2021-10-09] MEDS: D5-NS 0.45% + KCL 20 mEq 20 MEQ/1,000 ML BAG 100 MEQ IV (14:40)
[2021-10-09] MEDS: morphine 4 mg/mL SDV 1 mL 2 MG IVP ×3 (14:41→22:46)
[2021-10-09] MEDS: lidocaine 1% 5 ML in potassium chloride premix 100 ML 25 ML IV (17:15)
[2021-10-09] MEDS: acetaminophen 325 mg Tablet 650 MG PO (21:09)
[2021-10-09] MEDS: pantoprazole 40 mg SDV IVP (21:10)
--- NOTE | 2021-10-09 22:25 | PC.NURSE ---
This was placed per offgoing nurse. It was already in place when documenting nurse arrived. MICHAELLE
[2021-10-10] VITALS (15 sets, daily range): BP systolic 176–197; BP diastolic 92–98; PULSE 80–93; RESP 15–18; TEMP 36.4–36.9; O2SAT 96–98
--- NOTE | 2021-10-10 02:02 | PC.NURSE ---
Sleeping in bed. No distress. Call light in reach. NG tube in place to left nare. small amt gastric contents noted in tube to low wall suction.
[2021-10-10] MEDS: morphine 4 mg/mL SDV 1 mL 2 MG IVP ×4 (03:16→17:34)
--- NOTE | 2021-10-10 03:22 | PC.NURSE ---
Pt c/o cancer pain to her lower abd not like the stomach pain before. That is better. this is my usual pain. Morphine 2mg IV given as ordered.
[2021-10-10] MEDS: D5-NS 0.45% + KCL 20 mEq 20 MEQ/1,000 ML BAG 100 MEQ IV ×2 (04:33→14:48)
[2021-10-10] MEDS: acetaminophen 325 mg Tablet 650 MG PO (04:45)
[2021-10-10 05:04] LABS: Basophils % 0.4 %; Eosinophils # 0.1 10^3/uL (0.0-0.8); Eosinophils % 1.4 %; Hematocrit 38.4 % (37.0-47.0); Hemoglobin 13.4 g/dL (11.5-15.3); Lymphocytes # 0.9 10^3/uL (0.8-4.8); Lymphocytes % 17.8 %; Mean Corpuscular HGB Conc 34.9 g/dL (30.0-36.0); Mean Corpuscular Hemoglobin 32.6 pg (28.0-34.0); Mean Corpuscular Volume 93.4 fl (81-99); Mean Platelet Volume 9.7 fL (7.4-10.4); Monocytes # 0.6 10^3/uL (0.2-0.9); Monocytes % 12.6 %; Neutrophils # 3.26 10^3/uL (1.8-7.7); Neutrophils % 67.4 %; Nucleated Red Blood Cells % 0 %; Platelet Count 139 10^3/cmm (130-400); Red Blood Count 4.11 10^6/uL (4.1-5.3); Red Cell Distribution Width 13.8 % (12.1-15.1); White Blood Count 4.8 10^3/uL (4.0-10.0)
[2021-10-10 05:23] LABS: Glucose Urine UA Norm (Normal); Ketones Urine 1+ (Negative); Protein Urine Trace (Negative); Specific Gravity, Urine 1.005 (1.005-1.030); Urine Appearance Clear (CLEAR); Urine Color Yellow (Yellow); pH Urine 7 (5-7)
[2021-10-10 05:24] LABS: Add Urine Culture? No; Add Urine Microscopic? YES; Bilirubin Urine Neg (Negative); Blood Urine 2+ (Negative); Leukocyte Esterase Urine Negative (Negative); Nitrate Urine Negative (Negative); RBC Urine 0-4 /hpf (0-2); Squamous Epithelial Cell Urine 0-4 /hpf (0-5); Urobilinogen Urine Neg (Negative)
[2021-10-10 05:38] LABS: Alanine Aminotransferase 8 U/L (0-33); Albumin Level 3.7 g/dL (3.5-5.2); Alkaline Phosphatase 57 IU/L (35-105); Anion Gap 16.4 (5-19); Aspartate Amino Transferase 14 U/L (0-32); Blood Urea Nitrogen 6 mg/dL (8-23); Calcium 8.8 mg/dL (8.5-10.5); Carbon Dioxide 28 mmol/L (22-29); Chloride 96 mmol/L (98-107); Globulin 2.9 g/dL (1.3-4.6); Glomerular Filtration Rate 124.6 mL/min (90-130); Glucose 137 mg/dL (65-115); Osmolality Calculated 284 mOsm/kg (285-295); Potassium 3.4 mmol/L (3.5-5.1); Sodium 137 mmol/L (136-145); Total Bilirubin 0.4 mg/dL (0.15-1.2); Total Protein 6.6 g/dL (6.6-8.7)
--- NOTE | 2021-10-10 07:38 | PM.CONSULT ---
Providers/Reason For Consult Consulting Physician/Specialty*: General surgery Reason for Consult*: small bowel obstruction Attending Physician: Damon Hernandez MD Primary Care Provider: Ravi Lynne MD History of Present Illness History of Present Illness Nisreen Carrasco is a 61 year old female, with metastatic ovarian cancer and a history of multiple small bowel obstructions, who presented to the hospital yesterday with recurrent small bowel obstruction. She was only out of the hospital for about 24 hours before coming back with abdominal pain N/V. Her pain has since subsided. She was not passing flatus upon arrival, but she reports passing flatus this morning. Her pain was diffuse and crampy. It did not radiate. Palpation made the pain worse. The NGT made the pain better. Denies fever/chills. Review of Systems General: Reports: 10 or more systems reviewed and unremarkable except in HPI and below Meds/Allergies Home Medications and Allergies Home Medications Medication Instructions Recorded Confirmed Last Taken Type esomeprazole magnesium 40 mg 40 mg PO BID cap 11/29/19 10/09/21 10/08/21 History capsule,delayed release levothyroxine 50 mcg tablet 50 mcg PO DAILY 11/29/19 10/09/21 10/08/21 History rivaroxaban 20 mg tablet 20 mg PO DAILY 11/29/19 10/09/21 10/08/21 History venlafaxine 150 mg 150 mg PO DAILY 11/29/19 10/09/21 10/08/21 History capsule,extended release 24 hr trazodone 150 mg PO BEDTIME 12/01/19 10/09/21 10/08/21 History fentanyl 1 patch TOPICAL Q72H 12/04/19 10/09/21 10/09/21 07:00 History changed 10/09/21 sennosides [senna] 17.2 mg PO BID 07/29/21 10/09/21 10/08/21 History enalapril maleate [Vasotec] 10 mg PO BID 07/31/21 10/09/21 10/09/21 History pregabalin [Lyrica] 150 mg PO TID 07/31/21 10/09/21 10/09/21 History Lynparza 300 mg PO BID 09/07/21 10/09/21 10/05/21 History albuterol sulfate 2 puff INHALATION Q6H PRN 09/07/21 10/09/21 Unknown History lactulose [Generlac] 30 ml PO Q2H PRN 09/07/21 10/09/21 Unknown History ondansetron HCl 4 mg PO Q4H PRN 09/07/21 10/09/21 Unknown History Relistor 8 mg SUBCUT EVERY OTHER DAY PRN 09/08/21 10/09/21 Unknown Rx #2.8 ml carisoprodol 350 mg PO TID PRN 10/05/21 10/09/21 Unknown History oxycodone 30 - 60 mg PO Q6H PRN 10/05/21 10/09/21 10/09/21 07:00 History Allergies Allergy/AdvReac Type Severity Reaction Status Date / Time carboplatin AdvReac ADR-Vomitin Verified 03/10/21 11:00 g Current Medications Current Medications Generic Name Dose Route Start Last Admin Trade Name Freq PRN Reason Stop Dose Admin Acetaminophen 650 mg 10/09/21 13:45 10/10/21 04:45 Acetaminophen 325 Mg Tablet PO 650 mg Q6H PRN Administration Mild/Mod Pain Or Temp >/= 101 Enalapril Maleate 10 mg 10/09/21 18:00 10/09/21 18:43 Enalapril 10 Mg Tablet PO Not Given BID MORRIS Enoxaparin Sodium 40 mg 10/09/21 15:00 10/09/21 14:40 Enoxaparin 40 Mg/0.4 Ml Syringe SUBCUT 40 mg Q24H MORRIS Administration Potassium Chloride/Dextrose/Sod Cl 20 meq in 1,000 mls @ 100 mls/hr 10/09/21 13:45 10/10/21 04:33 D5-Ns 0.45% + Kcl 20 Meq IV 100 mls/hr .Q10H MORRIS Administration Morphine Sulfate 2 mg 10/09/21 13:45 10/10/21 03:16 Morphine 4 Mg/Ml Sdv 1 Ml IVP 2 mg Q4H PRN Administration SEVERE PAIN Pantoprazole Sodium 40 mg 10/09/21 21:00 10/09/21 21:10 Pantoprazole 40 Mg Sdv IVP 40 mg Q12H MORRIS Administration PFSH Acute PFSH: Medical History Bacteremia Chronic anticoagulation Chronic pain COPD (chronic obstructive pulmonary disease) Chronically on 3 L of oxygen COPD exacerbation Depression Extrinsic ureteral obstruction Fungemia History of DVT (deep vein thrombosis) Hydronephrosis, right Hyponatremia Hypothyroidism Hypoxia Malnutrition Multifocal pneumonia Ovarian cancer on right Pelvic pain in female Recurrent UTI Renal failure SBO (small bowel obstruction) Secondary malignant neoplasm of other specified sites Small bowel obstruction Small bowel obstruction Small bowel obstruction Small bowel obstruction Transaminitis VRE bacteremia Surgical History History of hysterectomy with bilateral oophorectomy History of right hemicolectomy S/P ureteral stent placement Family History Mother , at age 59 Cancer breast Myocardial infarction (lateral wall) Father Cancer prostate cancer Pacemaker Other CAD (coronary artery disease) Hypertension Social History Smoking and tobacco status: current every day smoker Alcohol intake: never Adopted: No Caregiver/support person: No Lives independently: No Household members: spouse Marital status: Current occupational status: disabled History of recent travel: No Female Reproductive History: Date of last menstrual period: 12/01/19 Vitals/I&O/Wt Last Vital Signs Temp 98.4 F 10/10/21 04:29 Pulse 91 10/10/21 04:29 Resp 18 10/10/21 04:29 BP 176/96 10/10/21 04:29 Pulse Ox 98 10/10/21 04:29 10/09/21 10/10/21 10/10/21 22:59 06:59 14:59 Intake Total 1020 / 1020 Output Total 550 / 550 Balance 470 / 470 Weight last 48 hrs Weight 112 lb Physical Exam Const: COMMON NORMALS: no acute distress and patient oriented x3; negative for well nourished HENMT: COMMON NORMALS: normocephalic and atraumatic HEAD & SCALP: normocephalic and atraumatic Eye: COMMON NORMALS: Equal, round and reactive pupils present and EOMs intact bilaterally PUPIL: Yes Equal, round and reactive pupils present Neck/C-Spine: COMMON NORMALS: no JVD Chest: COMMONS NORMALS: normal inspection of the chest and normal palpation of entire chest wall Resp: COMMON NORMALS: normal respiratory effort and No retractions Cardio: COMMON NORMALS: no JVD, regular rate and regular rhythm RATE: regular rate RHYTHM: regular rhythm GI: COMMON NORMALS: Soft to palpation INSPECTION: Yes normal to inspection and No abdominal distension PALPATION: Yes Soft to palpation, No Tenderness to palpation present (GI) and No Guarding due to palpation present (GI) Extremity: COMMON NORMALS: normal to inspection and full ROM Neuro: COMMON NORMALS: patient oriented x3 and no sensory deficits noted Psych: COMMON NORMALS: mental status grossly normal, Normal thought process present and speech normal SPEECH: Yes normal speech THOUGHT PROCESS: Normal thought process present A&P Assessment and plan (1) SBO (small bowel obstruction): NGT removed as patient is no longer distended and is passing flatus Clear liquid diet Ambulate Restart home meds Thank you for this consultation Status: Acute (2) Ovarian cancer on right: Metastatic. Patient is likely not a surgical candidate. Medical management per primary Status: Acute Coding Level of Care Code Acute Supervisor Shipping Room for [facility] Diagnoses SBO (small bowel obstruction) K56.609 Ovarian cancer on right C56.1
[2021-10-10] MEDS: levothyroxine 50 mcg Tablet PO (07:55)
[2021-10-10] MEDS: venlafaxine ER (24HR) 150 mg Capsule PO (07:55)
[2021-10-10] MEDS: pantoprazole 40 mg SDV IVP ×2 (07:55→21:36)
--- NOTE | 2021-10-10 09:26 | PM.PN ---
Subjective Subjective: Interval history: Nisreen reports she passed some flatus, had some stool. Abdomen still hurts. She is not for sure if she is going to be able to tolerate clear liquids. Medications: Reviewed: Yes Vitals/I&O/Wt Last Vital Signs Temp 97.7 F 10/10/21 08:00 Pulse 93 10/10/21 08:00 Resp 16 10/10/21 08:00 BP 197/98 10/10/21 08:00 Pulse Ox 96 10/10/21 08:00 10/09/21 10/10/21 10/10/21 22:59 06:59 14:59 Intake Total 1020 / 1020 Output Total 550 / 550 Balance 470 / 470 Weight last 48 hrs Weight 50.802 kg Physical Exam Narrative: EXAM NARRATIVE: General exam is a white female complaining of abdominal pain. NG has been removed. Neck is supple no lymphadenopathy or thyromegaly Cardiovascular regular rate and rhythm, no murmur. Note that initial blood pressure was markedly elevated. Abdomen is soft, tenderness mainly periumbilically. No obvious organomegaly. Extremities no cyanosis clubbing or edema, cap refill brisk Data : 10/10/21 04:29 10/10/21 04:29 A&P Assessment and plan (1) SBO (small bowel obstruction): High-grade obstruction per CT NG tube placed yesterday, removed today by surgery Surgery consultation appreciated She has had a small bowel movement, and is passing flatus Clear liquids have been started We will reinitiate her home meds Morphine as needed for discomfort Continue hydration No indication for antibiotics currently. Status: Acute (2) COPD (chronic obstructive pulmonary disease): DuoNeb as needed Continue patient's home oxygen Status: Acute (3) History of DVT (deep vein thrombosis): Hold Xarelto in case surgery is needed. Continue Lovenox for DVT prophylaxis Status: Acute (4) Ovarian cancer on right: Has recurrent ovarian cancer. This is followed by oncology. This complicates her small bowel obstruction significantly. We will try to arrange follow-up with gynecology surgery in [place], Dr. David. Status: Acute (5) Hypokalemia: Supplement. Check magnesium level Status: Acute Additional A&P Information Mild hypokalemia, supplement Multiple other medical problems as outlined in past medical history Full code currently. I did discuss this with the patient. Lovenox currently for DVT prophylaxis DVT occurred in 2019 and repeat study showed resolution. Will need oral anticoagulant on discharge. Attestations Medical Necessity Statement*: Needs continued hospitalization for close monitoring secondary to recurrent bowel obstructions. Will need to demonstrate over the next 24 hours that she is able to tolerate a diet. Coding Level of Care Code Acute Certified Procedural Coder for [facility] Diagnoses SBO (small bowel obstruction) K56.609 COPD (chronic obstructive pulmonary disease) J44.9 History of DVT (deep vein thrombosis) Z86.718 Ovarian cancer on right C56.1 Hypokalemia E87.6
[2021-10-10] MEDS: lactulose oral liq 20 gm/30 mL UDC 10 GM PO (09:27)
[2021-10-10] MEDS: potassium chloride oral liq 20 mEq/15 mL UDC 40 MEQ PO (09:27)
[2021-10-10] MEDS: oxyCODONE IR 30 mg Tablet PO ×3 (09:36→21:35)
[2021-10-10] MEDS: pregabalin 150 mg Capsule PO ×2 (11:39→21:36)
--- NOTE | 2021-10-10 11:48 | PC.CHAP ---
Pastoral Care Encounter/Spiritual Assessment Type of Contact [] Declined aerobics instructor visit [] Patient/Family/Request visit [] Outpatient visit [] Follow-up visit [] Physician referral [] Code/Alert [xx] Routine visit [] Staff referral [] Actively dying [] Patient sleeping [] Family support [] [] Out of room [] Palliative care [] [] Receiving care in room [] Pre-surgical visit [] Trauma [] Long length of stay [] ICU visit [] Other: Relational/Emotional Strength [xx] Patient feels connected with others/family/visitors/staff [] Distress [] Loneliness/isolation [] Abandonment Spirituality of Patient [xx] Person of Anuradha [] Attends Methodist of their Anuradha [xx] Believes in Prayer [] Reads Bible or Hinduism materials [] There are Spiritual issues to be addressed Chiller Tender Interventions [xx] Prayer x[xx] Active listening [xx] Non-anxious presence [] Spiritual/emotional support [] Crisis/trauma care [] Spiritual counseling [] Bereavement support [] Provided bereavement packet [] Provided Bible/devotional materials [] Provided toy/stuffed animal, coloring book to patient or family member [] Provided Communion [] Anointing/[place] [] Salvation [xx] Completed spiritual assessment [] Other: Impact on Illness or Injury [] Angry [] Fearful [] Anxious [] Often cries [] Exhaustion [] Unable to work [] Unable to attend religion [] Unable to walk/stand [] Unable to read [] Unable to drive [] Unable to eat/drink [] Unable to sleep [xx] Unable to be with family [] Patient intubated [] Other: Summary Patient stated she is not feeling much better. She is a bit depressed because this is [place] and she is not at home with family. Time spent with patient 5 minutes
[2021-10-10] MEDS: enoxaparin 40 mg/0.4 mL Syringe SUBCUT (14:48)
[2021-10-10] MEDS: trazodone 150 mg Tablet PO (21:36)
[2021-10-11] VITALS (14 sets, daily range): BP systolic 148–176; BP diastolic 84–106; PULSE 80–99; RESP 16–18; TEMP 36.5–37; O2SAT 92–98
[2021-10-11] MEDS: D5-NS 0.45% + KCL 20 mEq 20 MEQ/1,000 ML BAG 100 MEQ IV ×2 (00:45→10:55)
[2021-10-11] MEDS: morphine 4 mg/mL SDV 1 mL 2 MG IVP (01:04)
[2021-10-11 05:26] LABS: Basophils % 0.5 %; Eosinophils # 0.3 10^3/uL (0.0-0.8); Eosinophils % 4.7 %; Hematocrit 38.4 % (37.0-47.0); Hemoglobin 12.8 g/dL (11.5-15.3); Lymphocytes # 1.4 10^3/uL (0.8-4.8); Lymphocytes % 25.1 %; Mean Corpuscular HGB Conc 33.3 g/dL (30.0-36.0); Mean Corpuscular Hemoglobin 31.7 pg (28.0-34.0); Mean Platelet Volume 10.5 fL (7.4-10.4); Monocytes # 0.6 10^3/uL (0.2-0.9); Neutrophils # 3.35 10^3/uL (1.8-7.7); Neutrophils % 58.5 %; Nucleated Red Blood Cells % 0 %; Platelet Count 141 10^3/cmm (130-400); Red Blood Count 4.04 10^6/uL (4.1-5.3); Red Cell Distribution Width 13.7 % (12.1-15.1); White Blood Count 5.7 10^3/uL (4.0-10.0)
[2021-10-11 05:41] LABS: Alanine Aminotransferase 7 U/L (0-33); Albumin Level 3.5 g/dL (3.5-5.2); Alkaline Phosphatase 51 IU/L (35-105); Anion Gap 11.8 (5-19); Aspartate Amino Transferase 12 U/L (0-32); Blood Urea Nitrogen 3 mg/dL (8-23); Calcium 8.4 mg/dL (8.5-10.5); Carbon Dioxide 30 mmol/L (22-29); Chloride 99 mmol/L (98-107); Globulin 2.5 g/dL (1.3-4.6); Glomerular Filtration Rate 124.6 mL/min (90-130); Glucose 109 mg/dL (65-115); Osmolality Calculated 281 mOsm/kg (285-295); Potassium 3.8 mmol/L (3.5-5.1); Sodium 137 mmol/L (136-145); Total Bilirubin 0.3 mg/dL (0.15-1.2)
[2021-10-11] MEDS: ipratropium-albuterol 3 mL Neb INHALATION (07:35)
[2021-10-11] MEDS: lactulose oral liq 20 gm/30 mL UDC 10 GM PO (08:35)
[2021-10-11] MEDS: venlafaxine ER (24HR) 150 mg Capsule PO (08:35)
[2021-10-11] MEDS: pregabalin 150 mg Capsule PO ×3 (08:35→21:05)
[2021-10-11] MEDS: levothyroxine 50 mcg Tablet PO (08:35)
[2021-10-11] MEDS: pantoprazole 40 mg SDV IVP ×2 (08:49→21:06)
[2021-10-11] MEDS: oxyCODONE IR 30 mg Tablet PO ×3 (09:04→21:06)
[2021-10-11] MEDS: enoxaparin 40 mg/0.4 mL Syringe SUBCUT (15:06)
[2021-10-11] MEDS: lactulose oral liq 20 gm/30 mL UDC PO ×2 (15:06→21:06)
--- NOTE | 2021-10-11 15:22 | PM.PN ---
Subjective Subjective: Interval history: Pain controlled. No N/V. Tolerating clear liquids. +flatus. No BM Vitals/I&O/Wt Last Vital Signs Temp 98.2 F 10/11/21 11:18 Pulse 99 10/11/21 11:18 Resp 18 10/11/21 15:07 BP 169/99 10/11/21 11:18 Pulse Ox 98 10/11/21 11:18 10/11/21 10/11/21 10/11/21 06:59 14:59 22:59 Intake Total 1235 / 2835 1300 / 1300 Balance 1235 / 2835 1300 / 1300 Physical Exam Const: COMMON NORMALS: no acute distress and patient oriented x3; negative for well nourished GI: COMMON NORMALS: Soft to palpation INSPECTION: Yes normal to inspection and No abdominal distension PALPATION: Yes Soft to palpation, No Tenderness to palpation present (GI) and No Guarding due to palpation present (GI) Neuro: COMMON NORMALS: patient oriented x3 Data : 10/11/21 04:53 10/11/21 04:53 A&P Assessment and plan (1) SBO (small bowel obstruction): Advance to full liquids- plan to discharge on full liquids Ambulate Status: Acute (2) Ovarian cancer on right: Metastatic. Patient is likely not a surgical candidate. Medical management per primary Status: Acute Attestations Medical Necessity Statement*: Not tolerating a full calorie diet Coding Level of Care Code Acute Commercial Fisher for [facility] Diagnoses SBO (small bowel obstruction) K56.609 Ovarian cancer on right C56.1
--- NOTE | 2021-10-11 15:50 | PM.PN ---
Subjective Subjective: Interval history: seen this am. has not had a BM. NG tube out already. tolerating clear liquids. diet will be advanced to full liquids today. Vitals/I&O/Wt Last Vital Signs Temp 98.2 F 10/11/21 11:18 Pulse 99 10/11/21 11:18 Resp 18 10/11/21 15:07 BP 169/99 10/11/21 11:18 Pulse Ox 98 10/11/21 11:18 10/11/21 10/11/21 10/11/21 06:59 14:59 22:59 Intake Total 1235 / 2835 1300 / 1300 Balance 1235 / 2835 1300 / 1300 Physical Exam Narrative: EXAM NARRATIVE: AOx3, present at bedside.Thin frail appearing female. Neck is supple no lymphadenopathy or thyromegaly Cardiovascular regular rate and rhythm, no murmur. Abdomen is soft, non tender,BS normoactive and present. No obvious organomegaly. Extremities no cyanosis clubbing or edema, cap refill brisk Data : 10/11/21 04:53 10/11/21 04:53 A&P Assessment and plan (1) Hypokalemia: Status: Acute (2) Ovarian cancer on right: Status: Acute (3) History of DVT (deep vein thrombosis): Status: Acute (4) COPD (chronic obstructive pulmonary disease): Status: Acute (5) SBO (small bowel obstruction): Status: Acute Additional A&P Information #Small bowel obstruction, high grade obstruction per CT. #COPD - not in exacerbation #Hx of DVT #Ovarian cancer on right #Hypokalemia #COnsitpation - NG tube placed yesterday, removed 10/10 by surgery. Surgery following. Passing flatus, tolerating clear liquid diet. Home meds restarted. Stopped IV fluids. No indication for abx currently. Plan to dc on full liquids if tolerated. -Xarelto held incase of surgery needed. Lovenox for now for DVT PPX. - Has active ovarian cancer. Followed by Dr. Thomas outpatient and with Dr. David in [place]. - Lactulose 30 q6 hours . Full Code DVT PPX: lovenox Attestations Medical Necessity Statement*: > 24 hour stay. Need to make sure patient having BM and tolerating diet before discharge. Coding Level of Care Code Acute Sheetmetal Worker for [facility] Diagnoses Hypokalemia E87.6 Ovarian cancer on right C56.1 History of DVT (deep vein thrombosis) Z86.718 COPD (chronic obstructive pulmonary disease) J44.9 SBO (small bowel obstruction) K56.609
[2021-10-11] MEDS: amlodipine 5 mg Tablet PO (17:25)
--- NOTE | 2021-10-11 20:08 | PC.NURSE ---
Shift report received from Rosita OBRIEN. Patient in bed awake/watching TV. Rates pain at a 06/27/ aware next PRN available at 2110. O2 2L NC. IV patent/SL. No needs voiced at this time.
[2021-10-11] MEDS: trazodone 150 mg Tablet PO (21:05)
--- NOTE | 2021-10-11 22:29 | PC.NURSE ---
patient sleeping at this time/ no s/s of pain or discomfort
[2021-10-12] VITALS (16 sets, daily range): BP systolic 113–169; BP diastolic 69–90; PULSE 66–106; RESP 12–18; TEMP 36.6–37.5; O2SAT 94–97
[2021-10-12] MEDS: lactulose oral liq 20 gm/30 mL UDC PO ×3 (03:00→14:21)
[2021-10-12] MEDS: oxyCODONE IR 30 mg Tablet PO ×4 (03:06→20:25)
--- NOTE | 2021-10-12 03:49 | PC.NURSE ---
Patient's had an small incontinent liquid bowel movement. Bed linen and gown changed at this time
[2021-10-12 04:36] LABS: Basophils # 0.1 10^3/uL (0.0-0.1); Basophils % 1.1 %; Eosinophils # 0.2 10^3/uL (0.0-0.8); Hematocrit 42.1 % (37.0-47.0); Hemoglobin 14.1 g/dL (11.5-15.3); Lymphocytes # 1.6 10^3/uL (0.8-4.8); Lymphocytes % 33.5 %; Mean Corpuscular HGB Conc 33.5 g/dL (30.0-36.0); Mean Corpuscular Hemoglobin 32.1 pg (28.0-34.0); Mean Corpuscular Volume 95.9 fl (81-99); Mean Platelet Volume 9.9 fL (7.4-10.4); Monocytes # 0.5 10^3/uL (0.2-0.9); Monocytes % 10.8 %; Neutrophils # 2.36 10^3/uL (1.8-7.7); Nucleated Red Blood Cells % 0 %; Platelet Count 142 10^3/cmm (130-400); Red Blood Count 4.39 10^6/uL (4.1-5.3); Red Cell Distribution Width 14.1 % (12.1-15.1); White Blood Count 4.7 10^3/uL (4.0-10.0)
[2021-10-12 04:57] LABS: Anion Gap 14.6 (5-19); Blood Urea Nitrogen 2 mg/dL (8-23); Calcium 8.9 mg/dL (8.5-10.5); Carbon Dioxide 29 mmol/L (22-29); Chloride 98 mmol/L (98-107); Glucose 79 mg/dL (65-115); Magnesium 1.6 mg/dL (1.7-2.3); Osmolality Calculated 281 mOsm/kg (285-295); Potassium 3.6 mmol/L (3.5-5.1); Sodium 138 mmol/L (136-145)
--- NOTE | 2021-10-12 05:04 | PC.NURSE ---
Patient has a fentanyl l patch 100 mcg Right shoulder which patient states needs to changed tomorrow will pass in shift report.
[2021-10-12] MEDS: venlafaxine ER (24HR) 150 mg Capsule PO (08:40)
[2021-10-12] MEDS: pregabalin 150 mg Capsule PO ×3 (08:41→20:25)
[2021-10-12] MEDS: levothyroxine 50 mcg Tablet PO (08:41)
[2021-10-12] MEDS: amlodipine 5 mg Tablet PO (08:41)
[2021-10-12] MEDS: fentaNYL 100 mcg Patch 1 PATCH TRANSDERMA (08:42)
[2021-10-12] MEDS: pantoprazole 40 mg SDV IVP ×2 (08:42→20:24)
--- NOTE | 2021-10-12 09:37 | PC.SOCIAL ---
IMM Update: pg 2 of IMM updated and reviewed w/ patient. Copy provided.
--- NOTE | 2021-10-12 14:02 | PM.PN ---
Subjective Subjective: Interval history: Patient reporting increased sharp, constant diffuse pain. No N/V. Tolerating full liquids. +flatus. +loose BM's Vitals/I&O/Wt Last Vital Signs Temp 98.4 F 10/12/21 12:40 Pulse 76 10/12/21 12:40 Resp 18 10/12/21 12:40 BP 118/69 10/12/21 12:40 Pulse Ox 96 10/12/21 12:40 10/11/21 10/12/21 10/12/21 22:59 06:59 14:59 Intake Total 440 / 1940 736 / 736 Output Total 750 / 750 Balance -310 / 1190 736 / 736 Physical Exam Const: COMMON NORMALS: no acute distress and patient oriented x3; negative for well nourished GI: COMMON NORMALS: Soft to palpation INSPECTION: Yes normal to inspection and No abdominal distension PALPATION: Yes Soft to palpation, No Tenderness to palpation present (GI) and No Guarding due to palpation present (GI) Neuro: COMMON NORMALS: patient oriented x3 Data : 10/12/21 03:21 10/12/21 03:21 A&P Assessment and plan (1) SBO (small bowel obstruction): full liquids- plan to discharge on full liquids Added dilaudid Possible patient's perceived pain has an anxiety component. She would like one more day of observation Magnesium citrate Ambulate Status: Acute (2) Ovarian cancer on right: Metastatic. Patient is likely not a surgical candidate. Medical management per primary Status: Acute Attestations Medical Necessity Statement*: needs further pain control Coding Level of Care Code Acute Jinrikisha Driver for [facility] Diagnoses SBO (small bowel obstruction) K56.609 Ovarian cancer on right C56.1
[2021-10-12] MEDS: enoxaparin 40 mg/0.4 mL Syringe SUBCUT (14:20)
--- NOTE | 2021-10-12 14:21 | XRR_ITS ---
PROCEDURE INFORMATION: Exam: XR Abdomen Exam date and time: 10/12/2021 2:21 PM Age: 61 years old Clinical indication: Abdominal pain; Additional info: Follow up abdominal pain TECHNIQUE: Imaging protocol: XR of the abdomen. Views: Frontal supine view of the abdomen. 1 View. COMPARISON: CT abdomen pelvis w con* [id number] 10/09/2021 9:54 AM FINDINGS: Tubes, catheters and devices: Right ureteral stent noted in expected positioning. Gastrointestinal tract: Similar appearance of dilated loops of small bowel within the central abdomen. Bones/joints: Unremarkable. XR/XR KUB portable [id number] IMPRESSION: Similar dilated loops of small bowel centrally within the abdomen consistent with bowel obstruction seen on prior CT.
[2021-10-12] MEDS: magnesium citrate Btl 296 mL 150 ML PO (14:53)
[2021-10-12] MEDS: HYDROmorphone 1 mg/mL INJ 1 mL 0.5 MG IVP (14:54)
--- NOTE | 2021-10-12 16:24 | PM.PN ---
Subjective Subjective: Interval history: Seen this AM. She reports abdominal pain and would like to have an xray. SHe is tolerating full liquids and has also had a BM. Vitals/I&O/Wt Last Vital Signs Temp 98.6 F 10/12/21 16:13 Pulse 93 10/12/21 16:13 Resp 18 10/12/21 16:13 BP 169/90 10/12/21 16:13 Pulse Ox 96 10/12/21 16:13 10/12/21 10/12/21 10/12/21 06:59 14:59 22:59 Intake Total 736 / 736 Output Total 400 / 400 Balance 736 / 736 -400 / 336 Physical Exam Narrative: EXAM NARRATIVE: AOx3, present at bedside.Thin frail appearing female. Neck is supple no lymphadenopathy or thyromegaly Cardiovascular regular rate and rhythm, no murmur. Abdomen is soft, non tender, BS normoactive and present. No obvious organomegaly. Extremities no cyanosis clubbing or edema, cap refill brisk Data : 10/12/21 03:21 10/12/21 03:21 A&P Assessment and plan (1) Hypokalemia: Status: Acute (2) Ovarian cancer on right: Status: Acute (3) History of DVT (deep vein thrombosis): Status: Acute (4) COPD (chronic obstructive pulmonary disease): Status: Acute (5) SBO (small bowel obstruction): Status: Acute Additional A&P Information #Small bowel obstruction, high grade obstruction per CT. #COPD - not in exacerbation #Hx of DVT #Ovarian cancer on right #Hypokalemia #Consitpation - NG tube placed at admission, removed 10/10 by surgery. Surgery following. Passing flatus, tolerating full liquid diet. Home meds restarted. Stopped IV fluids. No indication for abx currently. Plan to dc on full liquids. -Xarelto held incase of surgery needed. Lovenox for now for DVT PPX. Will restart xarelto at discharge -Discussed with surgery over the phone. Her abdominal x-ray also discussed. There is no plan for any surgical intervention. Surgery recommends to keep the patient on full liquids indefinitely. Also make sure she stays on stool softeners to control constipation. There might also be an anxiety component associated. Patient is on Effexor currently. Patient will be observed another night in the hospital and discharged in the morning. Patient is agreeable. - Has active ovarian cancer. Followed by Dr. Thomas outpatient and with Dr. David in [place]. - Lactulose 30 q6 hours . Full Code DVT PPX: lovenox Attestations Medical Necessity Statement*: > 24 hour. Needs to be observed overnight Coding Level of Care Code Acute Measuring Machine Operator for [facility] Diagnoses Hypokalemia E87.6 Ovarian cancer on right C56.1 History of DVT (deep vein thrombosis) Z86.718 COPD (chronic obstructive pulmonary disease) J44.9 SBO (small bowel obstruction) K56.602
[2021-10-12] MEDS: ondansetron 2 mg/ML SDV 2 mL 4 MG IVP (16:54)
[2021-10-12] MEDS: morphine 4 mg/mL SDV 1 mL 2 MG IVP ×2 (16:54→21:13)
[2021-10-12] MEDS: magnesium sulfate premix 2 GM/50 ML PIGGYBACK IV (16:55)
--- NOTE | 2021-10-12 18:50 | PC.NURSE ---
Shift report received from Renee CHOU. IV patent/SL. Rates abd pain at a 9/10. No other needs voiced at this time.
[2021-10-12] MEDS: trazodone 150 mg Tablet PO (20:25)
--- NOTE | 2021-10-12 23:18 | PC.NURSE ---
Patient resting at this time. No s/s of pain or discomfort.
[2021-10-13] VITALS (12 sets, daily range): BP systolic 122–158; BP diastolic 75–95; PULSE 96–128; RESP 16–20; TEMP 36.8–37.9; O2SAT 87–93
[2021-10-13] MEDS: ondansetron 2 mg/ML SDV 2 mL 4 MG IVP ×2 (01:01→10:45)
[2021-10-13] MEDS: morphine 4 mg/mL SDV 1 mL 2 MG IVP ×4 (01:02→14:54)
--- NOTE | 2021-10-13 01:08 | PC.NURSE ---
patient declined both 1999 and 199 lactulose due nausea
--- NOTE | 2021-10-13 04:03 | PC.NURSE ---
Patient resting at this time/ no s/s of pain or discomfort
[2021-10-13 06:27] LABS: Basophils # 0.1 10^3/uL (0.0-0.1); Basophils % 0.6 %; Eosinophils % 0.3 %; Hemoglobin 16.7 g/dL (11.5-15.3); Lymphocytes # 0.7 10^3/uL (0.8-4.8); Lymphocytes % 7.1 %; Mean Corpuscular HGB Conc 34.1 g/dL (30.0-36.0); Mean Corpuscular Hemoglobin 32.6 pg (28.0-34.0); Mean Corpuscular Volume 95.7 fl (81-99); Monocytes # 0.5 10^3/uL (0.2-0.9); Monocytes % 4.7 %; Neutrophils # 8.36 10^3/uL (1.8-7.7); Neutrophils % 86.6 %; Nucleated Red Blood Cells % 0 %; Platelet Count 169 10^3/cmm (130-400); Red Blood Count 5.12 10^6/uL (4.1-5.3); Red Cell Distribution Width 14.4 % (12.1-15.1); White Blood Count 9.7 10^3/uL (4.0-10.0)
[2021-10-13 06:52] LABS: Anion Gap 19.4 (5-19); Blood Urea Nitrogen 4 mg/dL (8-23); Calcium 9.2 mg/dL (8.5-10.5); Carbon Dioxide 32 mmol/L (22-29); Chloride 90 mmol/L (98-107); Glucose 125 mg/dL (65-115); Magnesium 2.1 mg/dL (1.7-2.3); Osmolality Calculated 284 mOsm/kg (285-295); Potassium 3.4 mmol/L (3.5-5.1); Sodium 138 mmol/L (136-145)
--- NOTE | 2021-10-13 09:46 | CTR_ITS ---
PROCEDURE INFORMATION: Exam: CT Abdomen And Pelvis Without Contrast Exam date and time: 10/13/2021 9:46 AM Age: 61 years old Clinical indication: Nausea and vomiting; Abdominal pain; Prior surgery; Surgery type: Colon, ureteral stent, hyst; Additional info: Worsening abd pain and nausea TECHNIQUE: Imaging protocol: Computed tomography of the abdomen and pelvis without contrast. Sagittal and coronal reformatted images were created and reviewed. The patient was administered oral contrast. Radiation optimization: All CT scans at this facility use at least one of these dose optimization techniques: automated exposure control; mA and/or kV adjustment per patient size (includes targeted exams where dose is matched to clinical indication); or iterative reconstruction. COMPARISON: CT abdomen pelvis w con* [id number] 10/09/2021 9:54 AM RADIATION DOSE METRICS: Total DLP (mGy-cm): 674.04 FINDINGS: Limitations: Evaluation of solid organs and vasculature is limited without intravenous contrast. Lungs: Multiple areas of patchy opacification and ground-glass opacification in the visualized lower lungs have increased. Pleural spaces: No pleural effusion. Heart: Visualized portions of the heart are unremarkable. Liver: The liver is unremarkable. Gallbladder and bile ducts: Interval development of mild gallbladder distention. No gallbladder wall thickening. No biliary ductal dilatation. Pancreas: Stable mild atrophy of the pancreatic parenchyma. No pancreatic ductal dilatation. Spleen: The spleen is unremarkable. Adrenal glands: The right and left adrenal glands are unremarkable. Kidneys and ureters: Stable marked right hydronephrosis and hydroureter. The right ureter is obstructed by a mass in the retroperitoneum emanating from the right psoas muscle. Stable moderate to severe right renal atrophy is well, suggesting a longstanding obstruction. A right double-J ureteral stent is unchanged in position with the proximal coil in the right renal pelvis in the distal coil in the bladder. The left kidney is unremarkable. The left ureter is unremarkable. There is contrast in the renal collecting system and bladder from a prior radiographic study. The bladder is incompletely filled, which can limit evaluation. No focal abnormality in the bladder however. Stomach and bowel: There is redemonstration of multiple dilated loops of small bowel, small bowel loops measure up to 4.6 cm in diameter. These findings are stable and suggestive of a small bowel obstruction or focal adynamic ileus. There are nonspecific air-fluid levels in the colon. The colon is not dilated. Appendix: Appendix not definitely visualized. No inflammatory changes in the pericecal region however. Intraperitoneal space: No free intraperitoneal air. No ascites. No loculated fluid collections to suggest an abscess. A right retroperitoneal mass emanating from the right psoas muscle is stable in size measuring 3.5 x 4.2 cm (series 2, image 45). Retroperitoneal space: Surgical clips in the retroperitoneum and pelvis are stable. Vasculature: Unremarkable as visualized. Lymph nodes: No lymphadenopathy. Urinary bladder: See Kidneys and ureters finding. Reproductive: Unremarkable as visualized. Bones/joints: Bones are diffusely osteopenic. Degenerative changes in the spine, sacroiliac joints, and hips. Mild spinal canal stenosis at L3-L4 and L5-S1. Moderate spinal canal stenosis at L4-L5. Multilevel foraminal stenosis of varying severity in the lumbar spine. Soft tissues: No acute abnormality in the extra-abdominal soft tissues. CT/CT abdomen pelvis wo con [id number] IMPRESSION: 1. Stable findings suggesting a small bowel obstruction versus small bowel adynamic ileus. 2. Multiple areas of patchy opacification and ground-glass opacification in the visualized lower lungs have increased. Findings are suspicious for worsening pneumonia, including atypical organisms. Recommend clinical correlation. Recommend followup chest imaging to insure resolution of these findings. 3. Interval development of mild gallbladder distention. No gallbladder wall thickening. Further evaluation may be obtained with ultrasound of the gallbladder if it will change clinical management. 4. A mass emanating from the right psoas muscle is stable in size. This is obstructing the right right ureter with stable marked right hydronephrosis and hydroureter. Stable moderate to severe right renal atrophy is well, suggesting a longstanding obstruction. A right double-J ureteral stent is unchanged in position with the proximal coil in the right renal pelvis in the distal coil in the bladder. 5. Incidental/nonacute findings are listed in the report.
[2021-10-13] MEDS: levothyroxine 50 mcg Tablet PO (10:27)
[2021-10-13] MEDS: venlafaxine ER (24HR) 150 mg Capsule PO (10:27)
[2021-10-13] MEDS: amlodipine 5 mg Tablet PO (10:27)
[2021-10-13] MEDS: pregabalin 150 mg Capsule PO ×3 (10:28→21:04)
[2021-10-13] MEDS: pantoprazole 40 mg SDV IVP (10:28)
[2021-10-13] MEDS: lactulose oral liq 20 gm/30 mL UDC PO ×3 (10:29→21:02)
[2021-10-13] MEDS: sodium chloride 0.9% 500 ML 999 ML IV (10:31)
[2021-10-13] MEDS: enoxaparin 40 mg/0.4 mL Syringe SUBCUT (14:53)
--- NOTE | 2021-10-13 15:02 | P.PN_ITS ---
Subjective Subjective: Interval history: Patient is stating that she has not been able to tolerate full liquid diet, she is feeling nauseous, however no active vomiting, she is passing gas, last bowel movement was on Wednesday morning This morning she was complaining of worsening abdominal pain, I requested CT abdomen pelvis with contrast, her IV was displaced, delayed her CT abdomen pelvis Vitals/I&O/Wt Last Vital Signs Temp 100.3 F H 10/13/21 07:17 Pulse 115 H 10/13/21 08:34 Resp 18 10/13/21 14:54 BP 151/95 10/13/21 07:17 Pulse Ox 87 L 10/13/21 08:34 10/13/21 10/13/21 10/13/21 06:59 14:59 22:59 Output Total 500 / 900 Balance -500 / -44 Physical Exam Narrative: EXAM NARRATIVE: elderly female Appears more than stated age Clinically dehydrated Malnourished Complaining of abdominal pain Abdomen soft no signs of peritonitis however tenderness elicited on deep palpation S1, S2 Saturating well on room air EOMI, PERRLA Nonfocal exam Data : 10/13/21 05:15 10/13/21 05:15 A&P Assessment and plan (1) Ovarian cancer on right: Status: Acute (2) Hypokalemia: Status: Acute (3) History of DVT (deep vein thrombosis): Status: Acute (4) COPD (chronic obstructive pulmonary disease): Status: Acute (5) SBO (small bowel obstruction): Status: Acute Additional A&P Information Small bowel obstruction Repeat CT abdomen pelvis today Patient is stating that she has not been able to tolerate full liquid diet she is nauseous Continue her opioids Her last bowel movement was yesterday Passing flatus Tenderness on deep palpation We will check lactic acid, hemodynamically stable Full code Hold DVT prophylaxis in case she will require any surgical intervention, awaiting CT abdomen pelvis results, I will start her IV fluids again as she is tachycardic, clinically dehydrated Reviewed H&P and note from yesterday Attestations Medical Necessity Statement*: Continue medical management, patient is not ready to be discharged Time Spent in Patient Care: 16 - 35 minutes Coding Level of Care Code Acute Railway Equipment Operator for g Fwd Diagnoses Ovarian cancer on right C56.1 Hypokalemia E87.6 History of DVT (deep vein thrombosis) Z86.718 COPD (chronic obstructive pulmonary disease) J44.9 SBO (small bowel obstruction) K56.605
[2021-10-13] MEDS: iohexol 300 mg/mL 100 mL Btl IV (15:22)
[2021-10-13] MEDS: iohexol 300 mg/mL 50 mL Btl PO (15:32)
[2021-10-13] MEDS: ondansetron 4 MG Tablet PO ×2 (15:52→22:52)
[2021-10-13 16:21] LABS: Lactate (Lactic Acid level) 1.9 mmol/L (0.5-2.2)
--- NOTE | 2021-10-13 16:51 | P.PN_ITS ---
Subjective Subjective: Interval history: Patient reporting somewhat improved pain. No N/V. Tolerating full liquids. +flatus. +loose BM's. She has told me that she normally takes 60 mg oxycodone at home, but we confirmed she only is prescribed 30. Vitals/I&O/Wt Last Vital Signs Temp 99.8 F H 10/13/21 15:54 Pulse 114 H 10/13/21 15:54 Resp 16 10/13/21 15:54 BP 122/75 10/13/21 15:54 Pulse Ox 90 10/13/21 15:54 10/13/21 10/13/21 10/13/21 06:59 14:59 22:59 Intake Total 240 / 240 Output Total 500 / 900 Balance -500 / -44 240 / 240 Physical Exam Const: COMMON NORMALS: no acute distress and patient oriented x3; negative for well nourished GI: COMMON NORMALS: Soft to palpation INSPECTION: Yes normal to inspection and Yes abdominal distension PALPATION: Yes Soft to palpation, No Tenderness to palpation present (GI) and No Guarding due to palpation present (GI) Neuro: COMMON NORMALS: patient oriented x3 Data : 10/13/21 05:15 10/13/21 05:15 A&P Assessment and plan (1) SBO (small bowel obstruction): full liquids- plan to discharge on full liquids Possible patient's perceived pain has an anxiety component. She also tried to mislead staff on the amount of narcotics she takes CT abd recently performed- await results Ambulate Status: Acute (2) Ovarian cancer on right: Metastatic. Patient is likely not a surgical candidate. 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
--- NOTE | 2021-10-13 19:25 | PC.NURSE ---
Shift report received from Renee CHOU. Patient in bed awake/on phone. Rates pain at a 6/10. 3L NC. No IV /charge nurse/HS aware. No needs voiced at this time.
[2021-10-13] MEDS: oxyCODONE IR 30 mg Tablet PO (21:02)
[2021-10-13] MEDS: trazodone 150 mg Tablet PO (22:52)
[2021-10-14] VITALS (13 sets, daily range): BP systolic 86–146; BP diastolic 56–83; PULSE 74–114; RESP 16–18; TEMP 36.6–37.3; O2SAT 90–97
--- NOTE | 2021-10-14 00:47 | PC.NURSE ---
patient resting at this time/ no s/s of pain or discomfort
[2021-10-14] MEDS: lidocaine 1% 5 ML in potassium chloride premix 100 ML 25 ML IV (02:57)
[2021-10-14] MEDS: pantoprazole 40 mg SDV IVP ×2 (03:00→21:38)
[2021-10-14] MEDS: lactulose oral liq 20 gm/30 mL UDC PO ×4 (03:00→21:38)
[2021-10-14] MEDS: ondansetron 4 MG Tablet PO (04:14)
--- NOTE | 2021-10-14 04:18 | PC.NURSE ---
last B/P 109/ will administer PRN pain medication per request
[2021-10-14] MEDS: oxyCODONE IR 30 mg Tablet PO ×3 (04:20→16:20)
[2021-10-14 07:22] LABS: Lactate (Lactic Acid level) 0.7 mmol/L (0.5-2.2)
[2021-10-14 07:23] LABS: Blood Urea Nitrogen 10 mg/dL (8-23); Calcium 8.6 mg/dL (8.5-10.5); Carbon Dioxide 27 mmol/L (22-29); Chloride 93 mmol/L (98-107); Glomerular Filtration Rate 72.4 mL/min (90-130); Glucose 89 mg/dL (65-115); Osmolality Calculated 267 mOsm/kg (285-295); Sodium 129 mmol/L (136-145)
[2021-10-14 07:25] LABS: Anion Gap 14.1 (5-19); Potassium 5.1 mmol/L (3.5-5.1)
[2021-10-14 07:48] LABS: NT Pro B Type Natriuretic Pept 4152 pg/mL (0-125)
[2021-10-14] MEDS: venlafaxine ER (24HR) 150 mg Capsule PO (07:59)
[2021-10-14] MEDS: levothyroxine 50 mcg Tablet PO (07:59)
[2021-10-14] MEDS: pregabalin 150 mg Capsule PO (07:59)
--- NOTE | 2021-10-14 08:05 | PC.NURSE ---
Dr. Sebastian notified of decreased blood pressure 101/63, new orders received to hold scheduled morning dose of norvasc and vasotec, see MAR for further details.
[2021-10-14 09:22] LABS: Adenovirus Not Detected (NOT DETECT); Chlamydia Pneumoniae Not Detected (NOT DETECT); Coronavirus 229E,HKU1,NL63,OC4 Not Detected (NOT DETECT); Human Metapneumovirus Not Detected (NOT DETECT); Human Rhinovirus/Enterovirus Not Detected (NOT DETECT); Influenza A Not Detected (NOT DETECT); Influenza A H1 Not Detected (NOT DETECT); Influenza A H1-2009 Not Detected (NOT DETECT); Influenza A H3 Not Detected (NOT DETECT); Influenza B Not Detected (NOT DETECT); Mycoplasma Pneumoniae Not Detected (NOT DETECT); Parainfluenza Virus Type 1 Not Detected (NOT DETECT); Parainfluenza Virus Type 2 Not Detected (NOT DETECT); Parainfluenza Virus Type 3 Not Detected (NOT DETECT); Parainfluenza Virus Type 4 Not Detected (NOT DETECT); Respiratory Syncytial Virus A Not Detected (NOT DETECT); Respiratory Syncytial Virus B Not Detected (NOT DETECT); SARS-COV-2 Not Detected (NOT DETECT)
--- NOTE | 2021-10-14 10:39 | PC.NURSE ---
Patient reports ambulating down the hallway earlier this morning, this nurse did not witness.
--- NOTE | 2021-10-14 10:53 | PC.NURSE ---
Dr. Roland in to see patient, discussed plan of care and encouraged to increase PO intake. Verbalized understanding and denies further questions or concerns.
--- NOTE | 2021-10-14 11:30 | PC.SOCIAL ---
IMM update IMM updated with patient. Verbalized an understanding. Copy Pg 2 provided. Initialled, dated, timed, and placed in chart.
--- NOTE | 2021-10-14 11:50 | P.PN_ITS ---
Subjective Subjective: Interval history: Patient had a bowel movement this morning, abdomen is soft, CT abdomen did not show any acute/new changes Patient is still very nauseous has not been able to eat her liquid diet, plan to discharge her tomorrow if able to tolerate her p.o. diet Vitals/I&O/Wt Last Vital Signs Temp 98.0 F 10/14/21 07:14 Pulse 96 10/14/21 08:56 Resp 16 10/14/21 10:37 BP 100/66 10/14/21 08:56 Pulse Ox 97 10/14/21 08:37 10/13/21 10/14/21 10/14/21 22:59 06:59 14:59 Intake Total 600 / 600 345 / 345 Output Total 450 / 450 Balance 600 / 600 -450 / 150 345 / 345 Physical Exam Narrative: EXAM NARRATIVE: Patient is much more relaxed as compared to yesterday Clinically dehydrated Blood pressure soft Sodium 129 Clinical signs of dehydration Abdomen is soft bowel sound present No signs of edema Doing well on 4 L nasal cannula Data : 10/13/21 05:15 10/14/21 06:50 A&P Assessment and plan (1) SBO (small bowel obstruction): Status: Acute (2) COPD (chronic obstructive pulmonary disease): Status: Acute (3) History of DVT (deep vein thrombosis): Status: Acute (4) Ovarian cancer on right: Status: Acute (5) Hypokalemia: Status: Acute Additional A&P Information bowel obstruction: General surgery recommendations appreciated, patient had a bowel movement this morning, soft abdomen, plan to discharge her tomorrow Hypokalemia: Repleted Continue full liquid diet DVT prophylaxis: Lovenox Plan to discharge tomorrow Attestations Medical Necessity Statement*: Discharge tomorrow Time Spent in Patient Care: less than 15 minutes Coding Level of Care Code Acute Video Recorder Mechanic for [facility] Fwd Diagnoses SBO (small bowel obstruction) K56.609 COPD (chronic obstructive pulmonary disease) J44.9 History of DVT (deep vein thrombosis) Z86.718 Ovarian cancer on right C56.1 Hypokalemia E87.6
[2021-10-14] MEDS: enoxaparin 40 mg/0.4 mL Syringe SUBCUT (14:47)
--- NOTE | 2021-10-14 20:27 | PC.NURSE ---
Patient in bed/awake. O2 2 1/2L NC. IV patent/SL. Patient rates abd pain at a 10/10/ aware next PRN available at 2240. No other needs voiced at this time.
[2021-10-14] MEDS: trazodone 150 mg Tablet PO (21:38)
[2021-10-15] VITALS (11 sets, daily range): BP systolic 172–181; BP diastolic 87–102; PULSE 97–109; RESP 14–21; TEMP 36.7–36.9; O2SAT 93–96
[2021-10-15] MEDS: ondansetron 4 MG Tablet PO (00:11)
[2021-10-15] MEDS: morphine 4 mg/mL SDV 1 mL 2 MG IVP ×2 (00:15→04:44)
--- NOTE | 2021-10-15 00:20 | PC.NURSE ---
Patient is in bed awake. Patient is moaning and crying regarding abdominal pain / rates pain at a 10/ refuses oral pain medication/ IV pain medication administered per request. Patient also c/o of nausea/PRN administered. Audible flatus while administering medication. No other needs voiced at this time.
--- NOTE | 2021-10-15 02:49 | PC.NURSE ---
Patient has not gotten any relief with PRN medications. Agreeable at this time to oral pain medications. Patient does voice she is belching and passing gas but it is not helping with abdominal pain .
[2021-10-15] MEDS: oxyCODONE IR 30 mg Tablet PO ×4 (02:53→21:58)
--- NOTE | 2021-10-15 04:55 | PC.NURSE ---
Patient has not slept this shift/ has cried and moaned/ c/o of abd pain / rated a 10/10 with no relief from pain medication. Refused 0200 lactose related to nausea. Scant amount of yellow bile emesis. +flatus/belching.
[2021-10-15] MEDS: ondansetron 2 mg/ML SDV 2 mL 4 MG IVP ×3 (05:40→21:30)
--- NOTE | 2021-10-15 05:45 | PC.NURSE ---
Patient vomited 700mL thin greenish/yellowish liquid. PRN nausea medication administered. scallop dredger hospitalist will be notified.
[2021-10-15 07:18] LABS: Anion Gap 14.9 (5-19); Blood Urea Nitrogen 6 mg/dL (8-23); Carbon Dioxide 28 mmol/L (22-29); Chloride 91 mmol/L (98-107); Glomerular Filtration Rate 124.6 mL/min (90-130); Glucose 105 mg/dL (65-115); Osmolality Calculated 268 mOsm/kg (285-295); Potassium 3.9 mmol/L (3.5-5.1); Sodium 130 mmol/L (136-145)
[2021-10-15] MEDS: metoclopramide 5 mg/mL SDV 2 mL IVP (10:06)
[2021-10-15] MEDS: pantoprazole 40 mg SDV IVP ×2 (10:07→21:30)
[2021-10-15] MEDS: fentaNYL 100 mcg Patch 1 PATCH TRANSDERMA (10:18)
[2021-10-15] MEDS: lactulose oral liq 20 gm/30 mL UDC PO ×2 (10:20→19:30)
[2021-10-15] MEDS: levothyroxine 50 mcg Tablet PO (10:21)
[2021-10-15] MEDS: venlafaxine ER (24HR) 150 mg Capsule PO (10:21)
[2021-10-15] MEDS: amlodipine 5 mg Tablet PO (10:21)
--- NOTE | 2021-10-15 10:40 | PC.NURSE ---
lisset cazares RN witnessed fentanyl patch disposal.
--- NOTE | 2021-10-15 11:57 | PM.PN ---
Subjective Subjective: Interval history: 1 bowel movement today Passing flatus Abdomen is soft no signs of peritonitis on deep palpation there is tenderness which is diffuse, bowel sounds present, hyperactive Did discuss case with Dr. Lynne and Luan Lynne will discuss hospice care with the family tomorrow Patient is stating that she had 1 episode of emesis this morning Vitals/I&O/Wt Last Vital Signs Temp 98.2 F 10/15/21 11:51 Pulse 107 H 10/15/21 11:51 Resp 18 10/15/21 11:51 BP 172/87 10/15/21 11:51 Pulse Ox 93 10/15/21 11:51 10/14/21 10/15/21 10/15/21 22:59 06:59 14:59 Intake Total 730 / 1669 240 / 1909 300 / 300 Output Total 700 / 700 Balance 730 / 1669 -460 / 1209 300 / 300 Physical Exam Narrative: EXAM NARRATIVE: Patient looks dehydrated On 2 L nasal cannula Hyperactive bowel sounds, no rigidity or guarding however able to elicit tenderness on deep palpation, No signs of edema Dry mucous membranes S1, S2 variable EOMI, PERRLA Nonfocal neuro exam Data : 10/13/21 05:15 10/15/21 06:26 Other data: CT/CT abdomen pelvis wo con [id number] IMPRESSION: 1. Stable findings suggesting a small bowel obstruction versus small bowel adynamic ileus. 2. Multiple areas of patchy opacification and ground-glass opacification in the visualized lower lungs have increased. Findings are suspicious for worsening pneumonia, including atypical organisms. Recommend clinical correlation. Recommend followup chest imaging to insure resolution of these findings. 3. Interval development of mild gallbladder distention. No gallbladder wall thickening. Further evaluation may be obtained with ultrasound of the gallbladder if it will change clinical management. 4. A mass emanating from the right psoas muscle is stable in size. This is obstructing the right right ureter with stable marked right hydronephrosis and hydroureter. Stable moderate to severe right renal atrophy is well, suggesting a longstanding obstruction. A right double-J ureteral stent is unchanged in position with the proximal coil in the right renal pelvis in the distal coil in the bladder. 5. Incidental/nonacute findings are listed in the report. A&P Assessment and plan (1) Hypokalemia: Status: Acute (2) Ovarian cancer on right: Status: Acute (3) History of DVT (deep vein thrombosis): Status: Acute (4) COPD (chronic obstructive pulmonary disease): Status: Acute (5) SBO (small bowel obstruction): Status: Acute Additional A&P Information Hypokalemia: Repleted Adynamic ileus, chronic: Patient is having bowel movement every day, passing flatus, hyperactive bowel sounds, did discuss with Dr. Roland and Dr. Lynne, Dr. Lynne will discuss hospice care with the family tomorrow For now optimize her pain management Dr. Lynne recommended Relistor every other day Continue full liquid diet Repeat KUB Full code DVT prophylaxis covered with rivaroxaban Continue Lyrica Attestations Medical Necessity Statement*: Dr. Lynne will discuss hospice care with the family tomorrow, he recommended [place] if patient is agreeable Time Spent in Patient Care: 16 - 35 minutes Coding Level of Care Code Acute Joint Filler for [facility] Fwd Diagnoses Hypokalemia E87.6 Ovarian cancer on right C56.1 History of DVT (deep vein thrombosis) Z86.718 COPD (chronic obstructive pulmonary disease) J44.9 SBO (small bowel obstruction) K56.609
[2021-10-15] MEDS: sodium chloride 0.9% 1,000 ML 75 ML IV (15:42)
[2021-10-15] MEDS: methylnaltrexone 12 /0.6 mL INJ 12 MG SUBCUT (15:42)
[2021-10-15] MEDS: rivaroxaban 10 mg Tablet 20 MG PO (15:43)
[2021-10-15] MEDS: pregabalin 150 mg Capsule PO ×2 (15:43→21:57)
--- NOTE | 2021-10-15 16:06 | PC.NURSE ---
Dr. Sebastian contacted per patient request about doing either a ct scan or xray. per Dr. Sebastian, Dr. Lynne will see patient tomorrow to discuss plan of care.
[2021-10-15] MEDS: sennosides-docusate Tablet 1 TAB PO (18:09)
[2021-10-15] MEDS: trazodone 150 mg Tablet PO (21:57)
[2021-10-16] VITALS (11 sets, daily range): BP systolic 168–191; BP diastolic 85–98; PULSE 99–114; RESP 14–21; TEMP 36.4–36.9; O2SAT 90–95
[2021-10-16] MEDS: oxyCODONE IR 30 mg Tablet PO (03:44)
[2021-10-16] MEDS: ondansetron 2 mg/ML SDV 2 mL 4 MG IVP (03:47)
[2021-10-16] MEDS: sodium chloride 0.9% 1,000 ML 75 ML IV ×2 (05:12→23:00)
--- NOTE | 2021-10-16 05:14 | PC.NURSE ---
SHIFT SUMMARY Has c/o alot of abd pain and nausea tonight. Says she just does not feel well at all and doesn't understand why she has started feeling worse again. Abd is soft with bowel sounds present. Tender to palpation. Has been medicated with po Oxyir and IV Zofran. No vomiting but says has had dry heaves couple of times. Not drinking much. IV fluids infusing at 75ml/hr rate.
[2021-10-16 06:23] LABS: Anion Gap 19.5 (5-19); Blood Urea Nitrogen 5 mg/dL (8-23); Calcium 8.6 mg/dL (8.5-10.5); Carbon Dioxide 24 mmol/L (22-29); Chloride 91 mmol/L (98-107); Glomerular Filtration Rate 161.2 mL/min (90-130); Glucose 93 mg/dL (65-115); Osmolality Calculated 269 mOsm/kg (285-295); Potassium 3.5 mmol/L (3.5-5.1); Sodium 131 mmol/L (136-145)
--- NOTE | 2021-10-16 07:11 | FL_ITS ---
WS: [id number] Upper GI and small bowel follow-through, 10/16/2021 Clinical Data: Recurrent emesis Comparison: None. Fluoroscopy time: 1.4 minutes. Findings: The pulmonary film showed dilated small bowel. There were numerous central abdominal surgical clips a nd left pelvic surgical clips. There is a right ureteral stent. The patient swallowed the barium, and flowed normally through the hypopharynx into the esophagus. bhoff tube remain curled in the midportion of the esophagus. No hiatal hernia, reflux, esophagitis, m ass, polyp or erosion was seen. The barium passed into the stomach which was well distended and free of ulcer or deformity. No extrin sic mass could be seen. The barium then passed into the duodenal bulb which was well-distended and free of ulceration. The re mainder of the duodenum filled normally. The jejunum and ileum were distended. The maximum diameter of the jejunum was 6 cm. The barium then p rogressed slowly into the distal small bowel but not into the colon. FL/FL upper GI smallbowel series Impression: 1. Negative upper GI series. 2. Small bowel obstruction.
[2021-10-16] MEDS: pantoprazole 40 mg SDV IVP ×2 (08:51→20:53)
[2021-10-16] MEDS: lactulose oral liq 20 gm/30 mL UDC PO ×3 (08:51→20:53)
[2021-10-16] MEDS: pregabalin 150 mg Capsule PO ×3 (08:51→20:53)
[2021-10-16] MEDS: metoclopramide 5 mg/mL SDV 2 mL 10 MG IVP (08:51)
[2021-10-16] MEDS: rivaroxaban 10 mg Tablet 20 MG PO (08:52)
[2021-10-16] MEDS: venlafaxine ER (24HR) 150 mg Capsule PO (08:52)
[2021-10-16] MEDS: amlodipine 5 mg Tablet PO (08:52)
[2021-10-16] MEDS: sennosides-docusate Tablet 1 TAB PO ×2 (08:52→18:10)
[2021-10-16] MEDS: levothyroxine 50 mcg Tablet PO (08:52)
--- NOTE | 2021-10-16 09:02 | XR_ITS ---
WS: [id number] Portable AP upright chest, 10/16/2021 Clinical Data: Dobhoff tube placement confirmation Comparison: Portable chest, 10/09/2021. Findings: The Dobbhoff tube is curled in the esophagus at the junction of the middle and distal third s. XR/XR chest 1V portable [id number] Impression: Dobbhoff tube ends in esophagus.
--- NOTE | 2021-10-16 10:18 | PC.SOCIAL ---
IMM update IMM updated with patient, verbalized an understanding. Copy Pg 2 provided. Initialled, dated, timed, and placed in chart.
--- NOTE | 2021-10-16 10:38 | PM.PN ---
Subjective Subjective: Interval history: Dobbhoff was requested by Dr. Roland, Will be advanced, it is in esophagus Patient will get upper GI series with small bowel Dr. Lynne to speak with the family today We will follow up with Dr. Roland recommendations Patient is stating that she has decreased her fluid intake because she is too nauseous however no emesis today, 1 bowel movement Vitals/I&O/Wt Last Vital Signs Temp 98.4 F 10/16/21 07:14 Pulse 107 H 10/16/21 07:14 Resp 17 10/16/21 07:14 BP 169/85 10/16/21 07:14 Pulse Ox 94 10/16/21 07:14 10/15/21 10/16/21 10/16/21 22:59 06:59 14:59 Intake Total 0 / 540 1240 / 1780 Output Total 350 / 350 Balance -350 / 190 1240 / 1430 Physical Exam Narrative: EXAM NARRATIVE: Left lateral position Dehydrated Malnourished Abdomen is soft no signs of rigidity or guarding, tenderness elicited on deep palpation right quadrant Hyperactive bowel sounds No signs of edema Muscle mass loss Distressed because of pain Nonfocal neuro exam Data : 10/13/21 05:15 10/16/21 05:29 A&P Assessment and plan (1) Hypokalemia: Status: Acute (2) Ovarian cancer on right: Status: Acute (3) History of DVT (deep vein thrombosis): Status: Acute (4) COPD (chronic obstructive pulmonary disease): Status: Acute (5) SBO (small bowel obstruction): Status: Acute (6) Ileus: Status: Acute Additional A&P Information Ileus,vs partial obstruction Repeating upper GI series with small bowel Patient is on full liquid diet, having 1 bowel movement a day, passing flatus Hypoactive bowel sounds Still feeling nauseous, We will follow up with Dr. Roland recommendations, he requested Dobbhoff Ovarian cancer with progression which correlates with her abdominal pain COPD without exacerbation doing well on 2 L nasal cannula Full code Full liquid diet I did speak with Dr. Lynne yesterday who is planning to speak with the patient and her , Dr. Lynne recommended continuing methylnaltrexone every other day I will use Dilaudid instead of oxycodone Attestations Medical Necessity Statement*: Continue medical management Time Spent in Patient Care: less than 15 minutes Coding Level of Care Code Acute Operations Supervisor for [facility] Fwd Diagnoses Hypokalemia E87.6 Ovarian cancer on right C56.1 History of DVT (deep vein thrombosis) Z86.718 COPD (chronic obstructive pulmonary disease) J44.9 SBO (small bowel obstruction) K56.609 Ileus K56.7
[2021-10-16] MEDS: HYDROmorphone 1 mg/mL INJ 1 mL 0.5 MG IVP ×2 (13:53→20:53)
[2021-10-16] MEDS: ipratropium-albuterol 3 mL Neb INHALATION (15:10)
[2021-10-16] MEDS: levofloxacin-dextrose 5 % 750 MG/150 ML PREMIX 100 MG IV (15:23)
--- NOTE | 2021-10-16 16:15 | XRR_ITS ---
PROCEDURE INFORMATION: Exam: XR Chest Exam date and time: 10/16/2021 4:15 PM Age: 61 years old Clinical indication: Device placement; Ng tube; Additional info: Check for ng placement TECHNIQUE: Imaging protocol: XR of the chest. Views: 1 view. COMPARISON: CR XR chest 1V portable [id number] 10/16/2021 9:08 AM FINDINGS: Tubes, catheters and devices: Gastric tube placement with tip in the proximal stomach. Lungs: Patchy ground-glass opacities in the lung bases. Discoid atelectasis in both lung bases. Pleural spaces: Small left pleural effusion. No pneumothorax. Heart/Mediastinum: Unremarkable. No cardiomegaly. Bones/joints: Unremarkable. XR/XR chest 1V portable [id number] IMPRESSION: 1. Gastric tube tip in the proximal stomach. 2. Patchy pneumonia in the lung bases.
--- NOTE | 2021-10-16 17:32 | P.PN_ITS ---
Subjective Subjective: Interval history: Patient continues to have bowel movements but she also had nausea and vomiting and an upper GI performed earlier today shows obstruction in the jejunum. An NG tube was placed and about 500 cc of fluid was aspirated Vitals/I&O/Wt Last Vital Signs Temp 97.5 F L 10/16/21 15:47 Pulse 114 H 10/16/21 15:47 Resp 16 10/16/21 15:47 BP 171/95 10/16/21 15:47 Pulse Ox 90 10/16/21 15:47 10/16/21 10/16/21 10/16/21 06:59 14:59 22:59 Intake Total 1240 / 1780 120 / 120 Balance 1240 / 1430 120 / 120 Physical Exam Narrative: EXAM NARRATIVE: Abdomen: Soft, nondistended, tender, well-healed laparotomy scar Data : 10/13/21 05:15 10/16/21 05:29 A&P Assessment and plan (1) SBO (small bowel obstruction): 61 female status post ALBERTINA/BSO for ovarian cancer who has a stable mass in the right lower quadrant. Patient has continued to have abdominal pain and imaging study shows bowel obstruction. Discussed with the patient, Dr. Lynne and Dr. Sebastian, the obstruction could be secondary to metastatic ovarian disease or adhesions from prior surgery. Given the possibilities as well as duration of her symptoms the next step would be to consider diagnostic laparoscopy, possible laparotomy with possible ostomy possible gastrostomy. Patient wants her to be here before she decides to proceed with surgery and we will therefore tentatively plan for tomorrow afternoon since he cannot drive in the dark. NG to LIS CBC, CMP, type and screen Status: Acute Attestations Medical Necessity Statement*: as per primary Coding Level of Care Code Acute Professor Of Historical Theology for [facility] Fwd Diagnoses SBO (small bowel obstruction) K56.609
--- NOTE | 2021-10-16 20:47 | PC.NURSE ---
i reported high pulse 105 to nurse
[2021-10-16] MEDS: trazodone 150 mg Tablet PO (20:53)
[2021-10-17] VITALS (28 sets, daily range): BP systolic 127–196; BP diastolic 67–116; PULSE 67–113; RESP 15–22; TEMP 36.1–37; O2SAT 90–98
[2021-10-17] MEDS: HYDROmorphone 1 mg/mL INJ 1 mL 0.5 MG IVP ×3 (04:06→20:05)
[2021-10-17 04:46] LABS: Basophils % 0.2 %; Eosinophils # 0.1 10^3/uL (0.0-0.8); Hematocrit 38.2 % (37.0-47.0); Lymphocytes # 0.7 10^3/uL (0.8-4.8); Lymphocytes % 8.8 %; Mean Corpuscular Hemoglobin 31.6 pg (28.0-34.0); Mean Corpuscular Volume 92.9 fl (81-99); Mean Platelet Volume 9.9 fL (7.4-10.4); Monocytes # 0.7 10^3/uL (0.2-0.9); Monocytes % 8.2 %; Neutrophils # 6.51 10^3/uL (1.8-7.7); Neutrophils % 81.2 %; Nucleated Red Blood Cells % 0 %; Platelet Count 148 10^3/cmm (130-400); Red Blood Count 4.11 10^6/uL (4.1-5.3); Red Cell Distribution Width 13.7 % (12.1-15.1)
[2021-10-17 04:55] LABS: INR 0.99 (0.8-1.2); Partial Thromboplastin Time 32.2 SECONDS (23.9-36.7)
[2021-10-17 04:56] LABS: Fibrinogen 495 mg/dL (174-498)
[2021-10-17 04:58] LABS: Anion Gap 15.9 (5-19); Blood Urea Nitrogen 5 mg/dL (8-23); Calcium 8.3 mg/dL (8.5-10.5); Carbon Dioxide 27 mmol/L (22-29); Chloride 92 mmol/L (98-107); Glomerular Filtration Rate 161.2 mL/min (90-130); Glucose 71 mg/dL (65-115); Osmolality Calculated 270 mOsm/kg (285-295); Sodium 132 mmol/L (136-145)
[2021-10-17 05:02] LABS: Potassium 2.9 mmol/L (3.5-5.1)
[2021-10-17 05:08] LABS: Platelet Count 148 10^3/cmm (130-400)
--- NOTE | 2021-10-17 05:19 | PC.NURSE ---
i reported high pulse 113 to nurse
--- NOTE | 2021-10-17 06:00 | XRR_ITS ---
PROCEDURE INFORMATION: Exam: XR Abdomen Exam date and time: 10/17/2021 6:00 AM Age: 61 years old Clinical indication: Other: Sbo; Abdominal pain; Generalized; Prior surgery; Surgery type: Kidney stent, hyst, colon; Patient HX: HX of ovarian cancer TECHNIQUE: Imaging protocol: XR of the abdomen. Views: 2 Views. Upright and supine views. Total images: 2 COMPARISON: CT abdomen pelvis con [id number] 10/13/2021 5:13 PM FINDINGS: Tubes, catheters and devices: Enteric tube is noted with the tip at the GE junction. Consider advancing 15 cm. Gastrointestinal tract: Contrast is noted within small and large bowel loops. No evidence of obstruction. Intraperitoneal space: Normal. No free air. Organs: A double-J right ureteral stent is in place and appears appropriately positioned within the right renal pelvis and urinary bladder. Bones/joints: Osseous structures are unchanged from the prior exam. Other findings: Stable postsurgical changes. XR/XR abdomen min 2V [id number] IMPRESSION: 1. Enteric tube is noted with the tip at the GE junction. Consider advancing 15 cm. 2. A double-J right ureteral stent is in place and appears appropriately positioned within the right renal pelvis and urinary bladder. 3. Contrast is noted within small and large bowel loops. No evidence of obstruction.
[2021-10-17 08:06] LABS: Magnesium 1.5 mg/dL (1.7-2.3)
[2021-10-17] MEDS: lactulose oral liq 20 gm/30 mL UDC PO (09:20)
[2021-10-17] MEDS: potassium chloride oral liq 20 mEq/15 mL UDC 40 MEQ PO (09:20)
[2021-10-17] MEDS: lidocaine 1% 5 ML in potassium chloride premix 100 ML 25 ML IV (09:21)
[2021-10-17] MEDS: pantoprazole 40 mg SDV IVP ×2 (09:21→20:18)
[2021-10-17] MEDS: sennosides-docusate Tablet 1 TAB PO (09:22)
[2021-10-17] MEDS: pregabalin 150 mg Capsule PO ×2 (09:22→20:18)
[2021-10-17] MEDS: amlodipine 5 mg Tablet PO (09:22)
[2021-10-17] MEDS: ondansetron 4 MG Tablet PO (09:22)
[2021-10-17] MEDS: venlafaxine ER (24HR) 150 mg Capsule PO (09:22)
[2021-10-17] MEDS: levothyroxine 50 mcg Tablet PO (09:22)
[2021-10-17] MEDS: methylnaltrexone 12 /0.6 mL INJ 12 MG SUBCUT (09:23)
--- NOTE | 2021-10-17 10:10 | PM.PN ---
Subjective Subjective: Interval history: This morning repeat abdominal imaging does show contrast in the colon, obstruction seems to be resolved NG tube suction 300 mL bilious content Abdominal pain is much better This morning I spoke with her as well, patient had decided to go for the surgery and if needed ileostomy can be done, I have updated Dr. Roland who is planning to speak with the patient and her for surgery I was told surgery around [address] Lynne's and Dr. Roland's recommendations Vitals/I&O/Wt Last Vital Signs Temp 98.1 F 10/17/21 07:39 Pulse 108 H 10/17/21 09:07 Resp 16 10/17/21 09:07 BP 169/87 10/17/21 07:39 Pulse Ox 92 10/17/21 09:07 10/16/21 10/17/21 10/17/21 22:59 06:59 14:59 Intake Total 1130 / 1250 360 / 360 Output Total 920 / 920 Balance 1130 / 1250 -920 / 330 360 / 360 Physical Exam Narrative: EXAM NARRATIVE: Patient was resting comfortably in her bed NG tube to suction Abdominal pain slightly better as compared to yesterday S1, S2 tachycardia Clinically dehydrated EOMI, PERRLA Nonfocal neuro exam Data : 10/17/21 04:28 10/17/21 04:28 A&P Assessment and plan (1) Ileus: Status: Acute (2) Hypokalemia: Status: Acute (3) Ovarian cancer on right: Status: Acute (4) History of DVT (deep vein thrombosis): Status: Acute (5) COPD (chronic obstructive pulmonary disease): Status: Acute (6) SBO (small bowel obstruction): Status: Acute Additional A&P Information Because of recurrent obstruction patient had decided to go for the surgery. Appreciate Dr. Roland's and Dr. Lynne's recommendations. She is scheduled for surgery at 1:00. She does use 2 to 3 L of oxygen at home, sinus tachycardia related dehydration continue IV fluids for now, enalapril and Xarelto held since 10/15 continue normal saline at 75 mL/h Bolus option today and repeat imaging seems to be resolved, NG tube to suction, patient is stating that first she would like to go for the surgery and then decide further whether she will go to [place] with palliative care or not N.p.o. 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
[2021-10-17] MEDS: piperacillin-tazobactam 3.375 GM in sodium chloride 0.9% (plus) 50 ML IV ×2 (11:38→19:25)
--- NOTE | 2021-10-17 13:34 | PM.PN ---
Subjective Subjective: Interval history: patient continues to have abdominal pain, no nausea or vomiting with NG tube in place, had a bowel movement today, abdominal x-ray shows contrast in the colon Vitals/I&O/Wt Last Vital Signs Temp 98.6 F 10/17/21 13:33 Pulse 108 H 10/17/21 13:33 Resp 18 10/17/21 13:33 BP 196/116 10/17/21 13:33 Pulse Ox 97 10/17/21 13:33 10/16/21 10/17/21 10/17/21 22:59 06:59 14:59 Intake Total 1130 / 1250 1360 / 1360 Output Total 920 / 920 Balance 1130 / 330 -920 / 330 1360 / 1360 Physical Exam Narrative: EXAM NARRATIVE: Abdomen: Soft nondistended, tender, NG to LIS Data : 10/17/21 04:28 10/17/21 04:28 A&P Assessment and plan (1) SBO (small bowel obstruction): 61 female status post ALBERTINA/BSO for ovarian cancer who has a stable mass in the right lower quadrant. Patient has continued to have abdominal pain and imaging study shows bowel obstruction. Discussed with the patient, Dr. Lynne and Dr. Sebastian, the obstruction could be secondary to metastatic ovarian disease or adhesions from prior surgery. Given the possibilities as well as duration of her symptoms the next step would belaparotomy with possible ostomy possible gastrostomy. NG to LIS Status: Acute Attestations Medical Necessity Statement*: As per primary Coding Level of Care Code Acute Network Developer for [facility] Diagnoses SBO (small bowel obstruction) K56.609
[2021-10-17] MEDS: sodium chloride 0.9% 1,000 ML 30 ML IV (13:36)
--- NOTE | 2021-10-17 13:40 | PC.CHAP ---
Pastoral Care Encounter/Spiritual Assessment Type of Contact [] Declined commission auditor visit [] Patient/Family/Request visit [] Outpatient visit [xx] Follow-up visit [] Physician referral [] Code/Alert [xx] Routine visit [] Staff referral [] Actively dying [] Patient sleeping [] Family support [] [] Out of room [] Palliative care [] [] Receiving care in room [xx] Pre-surgical visit [] Trauma [xx] Long length of stay [] ICU visit [] Other: Relational/Emotional Strength [xx] Patient feels connected with others/family/visitors/staff [] Distress [] Loneliness/isolation [] Abandonment Spirituality of Patient [xx] Person of Anuradha [] Attends Religious of their Anuradha [xx] Believes in Prayer [] Reads Bible or Mormonism materials [] There are Spiritual issues to be addressed Director Of Oncology Interventions [] Prayer [] Active listening [] Non-anxious presence [] Spiritual/emotional support [] Crisis/trauma care [] Spiritual counseling [] Bereavement support [] Provided bereavement packet [] Provided Bible/devotional materials [] Provided toy/stuffed animal, coloring book to patient or family member [] Provided Communion [] Anointing/[place] [] Salvation [xx] Completed spiritual assessment [] Other: Impact on Illness or Injury [] Angry [] Fearful [xx] Anxious [] Often cries [] Exhaustion [] Unable to work [] Unable to attend hoahaoism [] Unable to walk/stand [] Unable to read [] Unable to drive [] Unable to eat/drink [] Unable to sleep [] Unable to be with family [] Patient intubated [] Other: Summary Patient's spouse present. Patient is going into surgery today and wants special prayer for doctors, staff and herself that all will go well. Time spent with patient 5 minutes
--- NOTE | 2021-10-17 14:52 | SUR.OPER ---
Family Notified Of Patient's Status Via Phone.
--- NOTE | 2021-10-17 15:11 | ANES.PREANE2 ---
Pre-Anesthetic Assessment Pre-Anesthetic Assessment: Height/Weight: Height 1.7 m Weight 50.802 kg Temp Pulse Resp BP Pulse Ox 98.6 F 108 H 18 196/116 97 10/17/21 13:33 10/17/21 13:33 10/17/21 13:33 10/17/21 13:33 10/17/21 13:33 Preop Diagnosis: Bacteremia, positive blood cultures from the Port-A-Cath Proposed Procedure: Operation Date: 10/17/21 14:00 Proposed Procedures p Exploratory Laparotomy(Not Applicable) - Wali Roland MD Was Beta Magdalena taken within 24 hours: Yes Was Clonidine taken within 24 hours: N/A Social: Social History: Tobacco and No alcohol Exam: Pre-Anes Outpt Exam: alert, oriented x 3, clear to auscultation bilaterally and regular rate & rhythm Airway: Submandibular: WNL Cervical ROM: WNL MP: 2 Additional comments: Poor dentition, missing most Pulmonary: Pulmonary: COPD CV/HEM: CV/HEM: DVT and HTN GI: GI: GERD Comments: SBO Metabolic: Metabolic: Thyroid Anesthetic Plan: ASA status: 3 Anesthesia: General (Mod RSI) Risk of > 500 ml blood loss (7ml/kg in children): No Meds/Allergies Current Medications: Current Medications Generic Name Dose Route Start Last Admin Trade Name Freq PRN Reason Stop Dose Admin Acetaminophen 650 mg 10/09/21 13:45 10/10/21 04:45 Acetaminophen 32 5 Mg Tablet PO 650 mg Q6H PRN Administration Mild/Mod Pain Or Temp >/= 101 Albuterol/Ipratrop ium 3 ml 10/09/21 13:45 10/16/21 15:10 Ipratropium-Albu terol 3 Ml Neb INHALATION 3 ml Q6H.RESPIRATORY P RN Administration SHORTNESS OF CAYETANO TH Amlodipine Besylat e 5 mg 10/11/21 16:05 10/17/21 09:22 Amlodipine 5 Mg Tablet PO 5 mg DAILY MORRIS Administration Enalapril Maleate 10 mg 10/09/21 18:00 10/16/21 08:52 Enalapril 10 Mg Tablet PO 10 mg BID MORRIS Administration Fentanyl 1 patch 10/15/21 10:15 10/15/21 10:18 Fentanyl 100 Mcg Patch TRANSDERMA 1 patch Q72H MORRIS Administration Hydromorphone HCl 0.5 mg 10/16/21 10:46 10/17/21 10:27 Hydromorphone 1 Mg/Ml Inj 1 Ml IVP 0.5 mg Q6H PRN Administration abd pain Sodium Chloride 1,000 mls @ 75 ml s/hr 10/15/21 12:15 10/17/21 13:07 Sodium Chloride 0.9% IV Infused .[id number] MORRIS Infusion Piperacillin Sod/T azobactam 50 mls @ 12.5 mls /hr 10/17/21 10:30 10/17/21 13:45 Sod 3.375 gm/ So dium Chloride IV Infused Q8H MORRIS Infusion Protocol Sodium Chloride 1,000 mls @ 30 ml s/hr 10/17/21 13:45 10/17/21 13:36 Sodium Chloride 0.9% IV 10/18/21 13:44 30 mls/hr .Q24H MORRIS Administration Lactulose 20 gm 10/11/21 14:00 10/17/21 09:20 Lactulose Oral L iq 20 Gm/30 Ml Udc PO 20 gm Q6H MORRIS Administration Levothyroxine Sodi um 50 mcg 10/10/21 09:00 10/17/21 09:22 Levothyroxine 50 Mcg Tablet PO 50 mcg DAILY MORRIS Administration Methylnaltrexone B romide 12 mg 10/15/21 12:10 10/17/21 09:23 Methylnaltrexone 12 /0.6 Ml Inj SUBCUT 12 mg EVERY OTHER DAY S CH Administration Ondansetron HCl 4 mg 10/09/21 13:45 10/16/21 03:47 Ondansetron 2 Mg /Ml Sdv 2 Ml IVP 4 mg Q6H PRN Administration NAUSEA AND VOMITI NG Ondansetron HCl 4 mg 10/15/21 09:53 10/17/21 09:22 Ondansetron 4 Mg Tablet PO 4 mg Q4H PRN Administration NAUSEA AND VOMITI NG Pantoprazole Sodiu m 40 mg 10/09/21 21:00 10/17/21 09:21 Pantoprazole 40 Mg Sdv IVP 40 mg Q12H MORRIS Administration Pregabalin 150 mg 10/15/21 15:00 10/17/21 09:22 Pregabalin 150 M g Capsule PO 150 mg TID MORRIS Administration Rivaroxaban 20 mg 10/15/21 12:00 10/16/21 08:52 Rivaroxaban 10 M g Tablet PO 20 mg DAILY MORRIS Administration Senna/Docusate Sod ium 1 tab 10/15/21 18:00 10/17/21 09:22 Sennosides-Docus ate Tablet PO 1 tab BID MORRIS Administration Trazodone HCl 150 mg 10/10/21 21:00 10/16/21 20:53 Trazodone 150 Mg Tablet PO 150 mg BEDTIME MORRIS Administration Venlafaxine HCl 150 mg 10/10/21 09:00 10/17/21 09:22 Venlafaxine Er ( 24hr) 150 Mg Capsu le PO 150 mg DAILY MORRIS Administration PFSH Anesthesia PFSH: Medical History Bacteremia Chronic anticoagulation Chronic pain COPD (chronic obstructive pulmonary disease) Chronically on 3 L of oxygen COPD exacerbation Depression Extrinsic ureteral obstruction Fungemia History of DVT (deep vein thrombosis) Hydronephrosis, right Hyponatremia Hypothyroidism Hypoxia Malnutrition Multifocal pneumonia Ovarian cancer on right Pelvic pain in female Recurrent UTI Renal failure SBO (small bowel obstruction) Secondary malignant neoplasm of other specified sites Small bowel obstruction Small bowel obstruction Small bowel obstruction Small bowel obstruction Transaminitis VRE bacteremia Surgical History History of hysterectomy with bilateral oophorectomy History of right hemicolectomy S/P ureteral stent placement Family History Mother , at age 59 Cancer breast Myocardial infarction (lateral wall) Father Cancer prostate cancer Pacemaker Other CAD (coronary artery disease) Hypertension Social History Smoking and tobacco status: current every day smoker Alcohol intake: never Adopted: No Caregiver/support person: No Lives independently: No Household members: spouse Marital status: Current occupational status: disabled History of recent travel: No Female Reproductive History: Date of last menstrual period: 12/01/19 Data Anesthesia CBC & Chem 7: 10/17/21 04:28 10/17/21 04:28 Other Labs: Laboratory Results - last 48 hr 10/16/21 10/17/21 10/17/21 05:29 04:28 04:28 WBC RBC Hgb Hct MCV MCH MCHC RDW Plt Count MPV Neut % (Auto) Lymph % (Auto) [place] % (Auto) Eos % (Auto) Baso % (Auto) Neut # (Auto) Lymph # (Auto) [place] # (Auto) Eos # (Auto) Baso # (Auto) Nucleated RBC % (auto) Nucleated RBCs # PT INR APTT Fibrinogen Sodium 131 L 132 L Potassium 3.5 2.9 L Chloride 91 L 92 L Carbon Dioxide 24 27 Anion Gap 19.5 H 15.9 BUN 5 L 5 L Creatinine 0.4 L 0.4 L GFR Calculation 161.2 H 161.2 H Glucose 93 71 Calculated Osmolality 269 L 270 L Calcium 8.6 8.3 L Magnesium Blood Type A Positive Rho(D) Type Positive Antibody Screen Negative 10/17/21 10/17/21 10/17/21 04:28 04:28 04:28 WBC 8.0 RBC 4.11 Hgb 13.0 Hct 38.2 MCV 92.9 MCH 31.6 MCHC 34.0 RDW 13.7 Plt Count 148 148 MPV 9.9 Neut % (Auto) 81.2 Lymph % (Auto) 8.8 [place] % (Auto) 8.2 Eos % (Auto) 1.0 Baso % (Auto) 0.2 Neut # (Auto) 6.51 Lymph # (Auto) 0.7 L [place] # (Auto) 0.7 Eos # (Auto) 0.1 Baso # (Auto) 0.0 Nucleated RBC % (auto) 0 Nucleated RBCs # 0.0 PT 13.40 INR 0.99 APTT 32.2 Fibrinogen 495 Sodium Potassium Chloride Carbon Dioxide Anion Gap BUN Creatinine GFR Calculation Glucose Calculated Osmolality Calcium Magnesium 1.5 L Blood Type Rho(D) Type Antibody Screen Cardiac Studies: Echocardiogram 07/03/21
--- NOTE | 2021-10-17 16:04 | SUR.OPER ---
Family Notified Of Patient's Status Via Phone.
[2021-10-17] MEDS: fentaNYL 50 mcg/mL INJ 2mL IVP (17:45)
--- NOTE | 2021-10-17 18:51 | ANE.PACU2 ---
Inpatient post-anesthesia follow up: Airway intact: Yes Vital signs: Temperature 97.1 F Pulse Rate 70 Respiratory Rate 16 Blood Pressure 128/74 Pulse Oximetry 96 Oxygen Delivery Me thod Nasal Cannula Oxygen Flow Rate 3 Fraction of Inspir ed Oxygen Hydration adequate: Yes Nausea and vomiting: No Pain level: 2 Mental status: Baseline
--- NOTE | 2021-10-17 19:31 | P.OP_ITS ---
Operative Report Date of procedure: October 17, 2021 Pre-op Diagnosis: 1. History of ovarian cancer, status post ALBERTINA/BSO 2. Recurrent small bowel obstruction 3. Post-op Diagnosis: 1. History of ovarian cancer, status post ALBERTINA/BSO 2. Prior small bowel resection 3. Multiple small bowel loops adherent to the right lower quadrant which could not be completely freed and therefore proximal ileum to transverse colon bypass was performed 4. Repair of iatrogenic cystotomy 5. Mass palpable in the right lower quadrant, could not be accessed for biopsy due to bowel loops adherent Procedure Done: 1. Exploratory laparotomy 2. Open lysis of adhesions for 2-1/2 hours 3. Repair of iatrogenic cystotomy 4. Stapled [id number] ileocolic bypass Specimens removed/disposition: Segment of the small bowel and transverse colon wall at the site of the anastomosis Surgeon: Wali Roland Anesthesia: General Estimated blood loss (mL): 75 IV fluids (mL): 1,700 Urine output (mL): 500 Condition: stable Disposition: PACU Procedure: The patient was taken to the operating room and intubated under general anesthesia after IV antibiotic had been administered. The abdomen was prepped and draped in a sterile manner. Patient already had an NG tube and Joseph catheter in place. Using a 15 blade, incision was made in the epigastric area superior to the prior laparotomy scar, subcutaneous tissue and linea alba was divided to enter the peritoneal cavity. There were multiple small bowel loops densely adherent to the abdominal wall along the laparotomy scar and therefore using Metzenbaum scissors lysis of adhesions was performed for a total of 2-1/2 hours to take down the stomach, transverse colon and small bowel from the abdominal wall. Lysis reveals adhesions was also performed between the adjacent bowel loops. Patient has had a prior ALBERTINA-BSO as well as bowel resection and therefore she had dense adhesions. After lysis had been performed there were multiple loops of small bowel adherent to mass palpable in the retroperitoneum which could not be taken down due to concerns for injury to the ureter which had previously been stented as well as risk of injury to the iliacs. There were no enterotomies or serosal tears. While attempting to take down the adhesions in the suprapubic area, opening was made in the dome of the urinary bladder. Since Dr. Cooper was not available I proceeded to close the 3 cm tear in the dome of the bladder in 2 layers. The mucosa was approximated using running 3-0 Vicryl sutures and the muscular layer along with the serosa was approximated using running 2-0 Vicryl suture. The urinary bladder was insufflated with 240 cc of saline and there was no evidence of leak at the repair. As I was unable to mobilize the loops of bowel in the right lower quadrant which was the site of the partial bowel obstruction I decided to proceed with the [id number] anastomotic bypass between ileum and transverse colon just distal to the existing staple line in the transverse colon from prior bowel resection. Interrupted 4-0 Vicryl sutures were used to approximate the ileum to the trans verse colon, enterotomies were created using electrocautery and a75 mm blue load GRANT stapler was fired to create a [id number] enterocolotomy. The previously created opening in the ileum and transverse colon were grasped with Allis clamps and a TA 60 stapler was fired to close the defect. The staple lines were everted using 4-0 Monocryl suture. 2 sheets of Interceed were placed in the abdomen to reduce the risk of adhesions. The peritoneal cavity was irrigated with 4 L of saline, hemostasis ensured and the fascia in the midline was closed using #1 looped PDS. The skin was closed with eugene. The patient was extubated and transferred to recovery room in a stable condition with NG tube and Joseph catheter in place.
[2021-10-17] MEDS: trazodone 150 mg Tablet PO (20:18)
[2021-10-17] MEDS: oxyCODONE-APAP 5-325 mg Tablet 1 TAB PO (23:23)
[2021-10-18] VITALS (10 sets, daily range): BP systolic 163–189; BP diastolic 83–95; PULSE 108–120; RESP 17–22; TEMP 36.6–37.4; O2SAT 92–95
[2021-10-18] MEDS: piperacillin-tazobactam 3.375 GM in sodium chloride 0.9% (plus) 50 ML IV ×3 (02:13→18:00)
[2021-10-18] MEDS: HYDROmorphone 1 mg/mL INJ 1 mL 0.5 MG IVP ×2 (02:14→08:34)
[2021-10-18] MEDS: oxyCODONE-APAP 5-325 mg Tablet 1 TAB PO ×3 (05:09→18:00)
[2021-10-18 06:09] LABS: Basophils # 0.1 10^3/uL (0.0-0.1); Basophils % 0.4 %; Hematocrit 41.3 % (37.0-47.0); Hemoglobin 13.9 g/dL (11.5-15.3); Lymphocytes # 0.5 10^3/uL (0.8-4.8); Mean Corpuscular HGB Conc 33.7 g/dL (30.0-36.0); Mean Corpuscular Hemoglobin 31.4 pg (28.0-34.0); Mean Corpuscular Volume 93.2 fl (81-99); Mean Platelet Volume 9.8 fL (7.4-10.4); Monocytes # 0.9 10^3/uL (0.2-0.9); Monocytes % 5.6 %; Neutrophils # 15.16 10^3/uL (1.8-7.7); Neutrophils % 90.5 %; Nucleated Red Blood Cells % 0 %; Platelet Count 198 10^3/cmm (130-400); Red Blood Count 4.43 10^6/uL (4.1-5.3); Red Cell Distribution Width 13.7 % (12.1-15.1); White Blood Count 16.7 10^3/uL (4.0-10.0)
[2021-10-18 06:31] LABS: Anion Gap 23.3 (5-19); Blood Urea Nitrogen 6 mg/dL (8-23); Calcium 8.2 mg/dL (8.5-10.5); Carbon Dioxide 19 mmol/L (22-29); Chloride 94 mmol/L (98-107); Glomerular Filtration Rate 161.2 mL/min (90-130); Glucose 111 mg/dL (65-115); Magnesium 1.3 mg/dL (1.7-2.3); Osmolality Calculated 274 mOsm/kg (285-295); Potassium 3.3 mmol/L (3.5-5.1); Sodium 133 mmol/L (136-145)
[2021-10-18] MEDS: lactulose oral liq 20 gm/30 mL UDC PO ×2 (07:51→13:42)
[2021-10-18] MEDS: D5-NS 0.45% + KCL 20 mEq 20 MEQ/1,000 ML BAG 75 MEQ IV ×2 (08:30→22:12)
[2021-10-18] MEDS: magnesium sulfate premix 2 GM/50 ML PIGGYBACK IV (08:33)
[2021-10-18] MEDS: pantoprazole 40 mg SDV IVP ×2 (08:34→20:03)
[2021-10-18] MEDS: levothyroxine 50 mcg Tablet PO (08:35)
[2021-10-18] MEDS: amlodipine 5 mg Tablet PO (08:35)
[2021-10-18] MEDS: sennosides-docusate Tablet 1 TAB PO ×2 (08:35→18:00)
[2021-10-18] MEDS: pregabalin 150 mg Capsule PO ×2 (08:35→13:43)
--- NOTE | 2021-10-18 09:29 | PC.SOCIAL ---
IMM Update Discussed Medicare rights with patient, verbalized understanding. Provided patient with a copy and initialed, timed, dated copy in patient's chart.
[2021-10-18] MEDS: fentaNYL 100 mcg Patch 1 PATCH TRANSDERMA (10:19)
--- NOTE | 2021-10-18 11:43 | PM.PN ---
Subjective Subjective: Interval history: Patient is still endorsing pain, has not been able to pass flatus, no bowel movement, 200ml in the container overnight We will avoid stronger opioids to avoid ileus after surgery She also has methylnaltrexone every other day regimen For now I will only give her 1 dose of Dilaudid IV push Vitals/I&O/Wt Last Vital Signs Temp 98.1 F 10/18/21 11:21 Pulse 120 H 10/18/21 11:21 Resp 20 H 10/18/21 11:21 BP 172/92 10/18/21 11:21 Pulse Ox 92 10/18/21 11:21 10/17/21 10/18/21 10/18/21 22:59 06:59 14:59 Intake Total 1800 / 3315 220 / 3535 2128 Output Total 1375 / 1375 1300 / 2675 Balance 425 / 1940 -1080 / 860 2128 Physical Exam Narrative: EXAM NARRATIVE: Patient was lying supine NG to suction 200 mL overnight, bilious content Abdominal dressing in place Sluggish bowel sounds Tender to palpation S1, S2, variable Hypertensive Nonfocal exam Currently requiring 3 to 4 L nasal cannula Urinary Catheter Management^: Joseph: Cath Placed During This Visit: yes Reason for Continuing Indwelling Catheter: Accurate Measurement of Urinary Output in Critically Ill Patients Urinary Catheter Date of Insertion: 10/17/21 Urinary Catheter Time of Insertion: 13:45 Data : 10/18/21 05:31 10/18/21 05:31 A&P Assessment and plan (1) Ileus: Status: Acute (2) Hypokalemia: Status: Acute (3) Ovarian cancer on right: Status: Acute (4) History of DVT (deep vein thrombosis): Status: Acute (5) COPD (chronic obstructive pulmonary disease): Status: Acute (6) SBO (small bowel obstruction): Status: Acute Additional A&P Information Small bowel obstruction Went for the surgery on 10/17 Status post 1. Exploratory laparotomy 2. Open lysis of adhesions for 2-1/2 hours 3. Repair of iatrogenic cystotomy 4. Stapled [id number] ileocolic bypass NG to LI suction, n.p.o., Patient is still complaining of pain, Methylnaltrexone every other day She has not passed flatus, no bowel movement since surgery Continue IV fluids Because of her pain she is getting tachycardic as well We will give her 1 dose of IV Dilaudid for now Hypokalemia: We will add potassium to her IV fluids COPD: requiring 4 L of oxygen since surgery Anticoagulating agent on hold DVT prophylaxis: SCDs Patient is full code, Attestations Medical Necessity Statement*: Continue medical management Time Spent in Patient Care: less than 15 minutes Coding Level of Care Code 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
[2021-10-18] MEDS: HYDROmorphone 1 mg/mL INJ 1 mL 0.4 MG IVP (11:59)
[2021-10-18 13:13] LABS: Glucose Point of Care 147 mg/dL (70-110)
[2021-10-19] VITALS (13 sets, daily range): BP systolic 161–192; BP diastolic 82–96; PULSE 93–115; RESP 15–20; TEMP 36.4–36.8; O2SAT 91–97
[2021-10-19] MEDS: oxyCODONE-APAP 5-325 mg Tablet 1 TAB PO ×3 (00:26→14:27)
[2021-10-19] MEDS: acetaminophen 325 mg Tablet 650 MG PO ×2 (00:27→14:27)
[2021-10-19] MEDS: piperacillin-tazobactam 3.375 GM in sodium chloride 0.9% (plus) 50 ML IV ×3 (02:31→17:32)
[2021-10-19 06:27] LABS: Basophils % 0.2 %; Eosinophils % 0.3 %; Hematocrit 34.2 % (37.0-47.0); Hemoglobin 11.5 g/dL (11.5-15.3); Lymphocytes # 0.7 10^3/uL (0.8-4.8); Lymphocytes % 5.3 %; Mean Corpuscular HGB Conc 33.6 g/dL (30.0-36.0); Mean Corpuscular Hemoglobin 31.1 pg (28.0-34.0); Mean Corpuscular Volume 92.4 fl (81-99); Monocytes # 1.1 10^3/uL (0.2-0.9); Monocytes % 8.7 %; Neutrophils # 10.53 10^3/uL (1.8-7.7); Neutrophils % 84.6 %; Nucleated Red Blood Cells % 0 %; Platelet Count 200 10^3/cmm (130-400); White Blood Count 12.5 10^3/uL (4.0-10.0)
[2021-10-19 06:57] LABS: Magnesium 1.7 mg/dL (1.7-2.3)
[2021-10-19 06:58] LABS: Anion Gap 15.6 (5-19); Blood Urea Nitrogen 6 mg/dL (8-23); Calcium 8.1 mg/dL (8.5-10.5); Carbon Dioxide 26 mmol/L (22-29); Chloride 95 mmol/L (98-107); Glomerular Filtration Rate 224.7 mL/min (90-130); Glucose 151 mg/dL (65-115); Osmolality Calculated 277 mOsm/kg (285-295); Potassium 3.6 mmol/L (3.5-5.1); Sodium 133 mmol/L (136-145)
[2021-10-19] MEDS: methylnaltrexone 12 /0.6 mL INJ 12 MG SUBCUT (08:37)
[2021-10-19] MEDS: levothyroxine 50 mcg Tablet PO (08:38)
[2021-10-19] MEDS: sennosides-docusate Tablet 1 TAB PO ×2 (08:38→17:32)
[2021-10-19] MEDS: lactulose oral liq 20 gm/30 mL UDC PO ×3 (08:38→20:25)
[2021-10-19] MEDS: amlodipine 5 mg Tablet PO (08:38)
[2021-10-19] MEDS: pantoprazole 40 mg SDV IVP ×2 (08:38→20:36)
[2021-10-19] MEDS: rivaroxaban 10 mg Tablet 20 MG PO (10:07)
[2021-10-19] MEDS: D5-NS 0.45% + KCL 20 mEq 20 MEQ/1,000 ML BAG 75 MEQ IV (12:01)
--- NOTE | 2021-10-19 14:31 | PM.PN ---
Subjective Subjective: Interval history: Patient complaining of abdominal pain, no nausea vomiting, tolerating clears, NG is clamped Vitals/I&O/Wt Last Vital Signs Temp 98 F 10/19/21 08:00 Pulse 115 H 10/19/21 09:19 Resp 17 10/19/21 14:27 BP 177/96 10/19/21 08:00 Pulse Ox 91 10/19/21 09:19 10/18/21 10/19/21 10/19/21 22:59 06:59 14:59 Intake Total 1110 / 3339 50 / 3339 1050 / 1050 Output Total 500 / 800 300 / 800 Balance 610 / 2539 -250 / 2539 1050 / 1050 Physical Exam Narrative: EXAM NARRATIVE: Abdomen: Soft, tender, distended, incision clean dry and intact Urinary Catheter Management^: Joseph: Cath Placed During This Visit: yes Reason for Continuing Indwelling Catheter: Accurate Measurement of Urinary Output in Critically Ill Patients Urinary Catheter Date of Insertion: 10/17/21 Urinary Catheter Time of Insertion: 13:45 Data : 10/19/21 05:41 10/19/21 05:41 A&P Assessment and plan (1) SBO (small bowel obstruction): Appears to be resolving, patient had a bowel movement today, tolerating clears Maintain aggressive bowel regimen Keep NG clamped as patient is a bit distended today Protonix for GI prophylaxis SCDs for DVT prophylaxis, patient is on Xarelto Status: Acute (2) S/P exploratory laparotomy: Incisions clean dry and intact Continue IV Zosyn Joseph to gravity for 2 weeks due to repair of iatrogenic cystotomy Status: Acute Attestations Medical Necessity Statement*: As per primary Coding Level of Care Code 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
--- NOTE | 2021-10-19 14:38 | PM.PN ---
Subjective Subjective: Interval history: Started clear liquid diet, continue NG tube, NG tube has been clamped, she had 1 bowel movement today after getting methylnaltrexone Bowel sounds present Patient is still complaining of intractable pain Vitals/I&O/Wt Last Vital Signs Temp 98 F 10/19/21 08:00 Pulse 115 H 10/19/21 09:19 Resp 17 10/19/21 14:27 BP 177/96 10/19/21 08:00 Pulse Ox 91 10/19/21 09:19 10/18/21 10/19/21 10/19/21 22:59 06:59 14:59 Intake Total 1110 / 3289 50 / 3339 1050 / 1050 Output Total 500 / 500 300 / 800 Balance 610 / 2789 -250 / 2539 1050 / 1050 Physical Exam Narrative: EXAM NARRATIVE: Was resting comfortably in her bed NG was clamped Abdomen soft bowel sound present No signs of edema Clinical signs of dehydration Nonfocal exam Abdomen slightly tender right lower quadrant otherwise no active signs of guarding rigidity or peritonitis EOMI, PERRLA nonfocal exam Urinary Catheter Management^: Joseph: Cath Placed During This Visit: yes Reason for Continuing Indwelling Catheter: Accurate Measurement of Urinary Output in Critically Ill Patients Urinary Catheter Date of Insertion: 10/17/21 Urinary Catheter Time of Insertion: 13:45 Data : 10/19/21 05:41 10/19/21 05:41 A&P Assessment and plan (1) S/P exploratory laparotomy: Status: Acute (2) Ileus: Status: Acute (3) Ovarian cancer on right: Status: Acute (4) History of DVT (deep vein thrombosis): Status: Acute (5) COPD (chronic obstructive pulmonary disease): Status: Acute (6) SBO (small bowel obstruction): Status: Acute Additional A&P Information Status post expiratory laparotomy Inadvertent intraoperative bladder injury status post repair Postop day 2 Leukocytosis trending down, creatinine normal, adequate urine output Patient had 1 bowel movement today with the help of methylnaltrexone Still complaining abdominal pain Dr. Roland recommended continuing NG tube for now because of her recurrent symptoms, will do trial of clear liquid today Considering history of cancer I will add long-acting morphine for breakthrough pain p.o. morphine Full code Clear liquid diet DVT prophylaxis Xarelto Once able to tolerate clear liquid can discontinue IV fluids Patient wants to return home once clinically stable Attestations Medical Necessity Statement*: Continue medical management Time Spent in Patient Care: 16 - 35 minutes Coding Level of Care Code Acute Care Team Coordinator Scheduler for [facility] Fwd Diagnoses S/P exploratory laparotomy Z98.890 Ileus K56.7 Ovarian cancer on right C56.1 History of DVT (deep vein thrombosis) Z86.718 COPD (chronic obstructive pulmonary disease) J44.9 SBO (small bowel obstruction) K56.609
[2021-10-19] MEDS: morphine IR 15 mg Tablet PO ×2 (16:09→20:25)
[2021-10-19] MEDS: morphine ER (12 HR) 15 mg Tablet PO (17:32)
[2021-10-19] MEDS: trazodone 150 mg Tablet PO (20:25)
[2021-10-20] VITALS (11 sets, daily range): BP systolic 155–181; BP diastolic 80–90; PULSE 102–119; RESP 17–20; TEMP 36.3–37.6; O2SAT 91–95
[2021-10-20] MEDS: piperacillin-tazobactam 3.375 GM in sodium chloride 0.9% (plus) 50 ML IV ×3 (01:55→17:36)
[2021-10-20] MEDS: D5-NS 0.45% + KCL 20 mEq 20 MEQ/1,000 ML BAG 75 MEQ IV (01:55)
[2021-10-20] MEDS: morphine IR 15 mg Tablet PO ×4 (01:59→20:13)
[2021-10-20] MEDS: lactulose oral liq 20 gm/30 mL UDC PO ×3 (02:03→20:13)
[2021-10-20 05:41] LABS: Basophils % 0.1 %; Eosinophils # 0.1 10^3/uL (0.0-0.8); Hematocrit 32.2 % (37.0-47.0); Hemoglobin 10.7 g/dL (11.5-15.3); Lymphocytes # 0.6 10^3/uL (0.8-4.8); Lymphocytes % 7.3 %; Mean Corpuscular HGB Conc 33.2 g/dL (30.0-36.0); Mean Corpuscular Hemoglobin 31.4 pg (28.0-34.0); Mean Corpuscular Volume 94.4 fl (81-99); Mean Platelet Volume 9.8 fL (7.4-10.4); Monocytes # 0.7 10^3/uL (0.2-0.9); Monocytes % 7.9 %; Neutrophils # 6.83 10^3/uL (1.8-7.7); Nucleated Red Blood Cells % 0 %; Platelet Count 180 10^3/cmm (130-400); Red Blood Count 3.41 10^6/uL (4.1-5.3); Red Cell Distribution Width 14.1 % (12.1-15.1); White Blood Count 8.2 10^3/uL (4.0-10.0)
[2021-10-20 06:32] LABS: Anion Gap 13.1 (5-19); Blood Urea Nitrogen 5 mg/dL (8-23); Calcium 8.1 mg/dL (8.5-10.5); Carbon Dioxide 29 mmol/L (22-29); Chloride 94 mmol/L (98-107); Glomerular Filtration Rate 161.2 mL/min (90-130); Glucose 115 mg/dL (65-115); Osmolality Calculated 274 mOsm/kg (285-295); Potassium 3.1 mmol/L (3.5-5.1); Sodium 133 mmol/L (136-145)
[2021-10-20] MEDS: rivaroxaban 10 mg Tablet 20 MG PO (08:36)
[2021-10-20] MEDS: levothyroxine 50 mcg Tablet PO (08:36)
[2021-10-20] MEDS: pantoprazole 40 mg SDV IVP ×2 (08:36→20:13)
[2021-10-20] MEDS: amlodipine 5 mg Tablet PO (08:36)
[2021-10-20] MEDS: morphine ER (12 HR) 15 mg Tablet PO ×2 (08:36→17:36)
[2021-10-20] MEDS: sennosides-docusate Tablet 1 TAB PO ×2 (08:36→17:36)
--- NOTE | 2021-10-20 12:18 | PC.SOCIAL ---
IMM Updated Updated pt on IMM. No questions voiced. Provided pt a copy. Initialed, dated, & timed copy in chart.
--- NOTE | 2021-10-20 13:51 | PM.PN ---
Subjective Subjective: Interval history: Seen this morning. She denies any nausea or vomiting today. Does still have abdominal pain when she coughs due to her recent surgery. I was able to have another bowel movement this morning which was fully liquid. She states overall she feels okay but continues to have pain. She says when she gets her pain medication she feels better. She is on clear liquids at this time NG was clamped yesterday for trial. She says she did not have very much of the liquid. Medications: Reviewed: Yes Vitals/I&O/Wt Last Vital Signs Temp 98.2 F 10/20/21 11:23 Pulse 103 H 10/20/21 11:23 Resp 18 10/20/21 11:23 BP 176/88 10/20/21 11:23 Pulse Ox 94 10/20/21 11:23 10/19/21 10/20/21 10/20/21 22:59 06:59 14:59 Intake Total 290 / 1340 1050 / 2390 180 / 180 Output Total 200 / 200 1350 / 1550 Balance 90 / 1140 -300 / 840 180 / 180 Physical Exam Narrative: EXAM NARRATIVE: Was resting comfortably in her bed NG was clamped Abdomen soft bowel sound present No signs of edema Clinical signs of dehydration Nonfocal exam Abdomen nontender otherwise no active signs of guarding rigidity or peritonitis EOMI, PERRLA nonfocal exam Urinary Catheter Management^: Joseph: Cath Placed During This Visit: yes Reason for Continuing Indwelling Catheter: Other Urinary Catheter Date of Insertion: 10/17/21 Urinary Catheter Time of Insertion: 13:45 Data : 10/20/21 05:07 10/20/21 05:07 A&P Assessment and plan (1) S/P exploratory laparotomy: Status: Acute (2) Ileus: Status: Acute (3) Ovarian cancer on right: Status: Acute (4) History of DVT (deep vein thrombosis): Status: Acute (5) COPD (chronic obstructive pulmonary disease): Status: Acute (6) SBO (small bowel obstruction): Status: Acute Additional A&P Information #Status post expiratory laparotomy #Inadvertent intraoperative bladder injury status post repair #Postop day 3 Leukocytosis trending down, creatinine normal, adequate urine output Patient had 1 bowel movement yesterday and 1 BM today with the help of methylnaltrexone Still complaining abdominal pain Dr. Roland recommended continuing NG tube for now because of her recurrent symptoms, trial of clear liquids done. Pt states she did not take very much of it but whatever amount she took, she tolerated. Will defer to Dr. Roland for advancement of diet. Considering history of cancer long-acting morphine was added. Full code Clear liquid diet DVT prophylaxis Xarelto Once able to tolerate clear liquid can discontinue IV fluids Patient wants to return home once clinically stable i stopped D5 fluids due to developing hyponatremia. Will switch to NS 75 cc/hr Hypokalemia was repleted today. Attestations Medical Necessity Statement*: > 48 hours Coding Level of Care Code Acute Utility Bill Collection Clerk for [facility]g Fwd Diagnoses S/P exploratory laparotomy Z98.890 Ileus K56.7 Ovarian cancer on right C56.1 History of DVT (deep vein thrombosis) Z86.718 COPD (chronic obstructive pulmonary disease) J44.9 SBO (small bowel obstruction) K56.604
--- NOTE | 2021-10-20 15:47 | P.PN_ITS ---
Subjective Subjective: Interval history: Patient has been doing well denies any nausea or vomiting, had loose bowel movements today. She still continues to complain of abdominal pain Vitals/I&O/Wt Last Vital Signs Temp 98.2 F 10/20/21 11:23 Pulse 103 H 10/20/21 11:23 Resp 18 10/20/21 11:23 BP 176/88 10/20/21 11:23 Pulse Ox 94 10/20/21 11:23 10/20/21 10/20/21 10/20/21 06:59 14:59 22:59 Intake Total 1050 / 2390 180 / 180 Output Total 1350 / 1550 750 / 750 Balance -300 / 840 -570 / -570 Physical Exam Narrative: EXAM NARRATIVE: Abdomen: Soft, less distended today, tender, incision clean dry and intact Urinary Catheter Management^: Joseph: Cath Placed During This Visit: yes Reason for Continuing Indwelling Catheter: Other Urinary Catheter Date of Insertion: 10/17/21 Urinary Catheter Time of Insertion: 13:45 Data : 10/20/21 05:07 10/20/21 05:07 A&P Assessment and plan (1) SBO (small bowel obstruction): Appears to be resolving, patient had a bowel movement today, tolerating clears Maintain aggressive bowel regimen, might have to decrease the dosage tomorrow if she continues to have loose stools Advance to GI soft diet Protonix for GI prophylaxis SCDs for DVT prophylaxis, patient is on Xarelto Status: Acute (2) S/P exploratory laparotomy: Incisions clean dry and intact Continue IV Zosyn Joseph to gravity for 2 weeks due to repair of iatrogenic cystotomy Status: Acute Attestations Medical Necessity Statement*: As per primary Coding Level of Care Code Acute Compliance Analyst for [facility] Fwd Diagnoses SBO (small bowel obstruction) K56.609 S/P exploratory laparotomy Z98.890
[2021-10-20] MEDS: potassium chloride oral liq 20 mEq/15 mL UDC 40 MEQ PO (15:48)
[2021-10-20] MEDS: sodium chloride 0.9% 1,000 ML 75 ML IV (15:49)
[2021-10-20] MEDS: trazodone 150 mg Tablet PO (20:13)
[2021-10-21] VITALS (13 sets, daily range): BP systolic 130–186; BP diastolic 70–93; PULSE 74–104; RESP 15–20; TEMP 36.6–37.2; O2SAT 91–99
[2021-10-21] MEDS: morphine IR 15 mg Tablet PO ×4 (00:32→21:19)
--- NOTE | 2021-10-21 01:25 | PC.NURSE ---
2000 Sitting up in bed reports lower abd pain. Abd surgical incision open to air with edges well approx. [place] in place. No redness or drainage. Pillow provided to gaurd abd with movement and TCDB.
--- NOTE | 2021-10-21 01:27 | PC.NURSE ---
2200 Assited to [facility] to have BM.. Mod amt mucous, greasey green BM noted.
--- NOTE | 2021-10-21 01:27 | PC.NURSE ---
0015 Reports abd pain. Requests pain med and given as ordered.
[2021-10-21] MEDS: piperacillin-tazobactam 3.375 GM in sodium chloride 0.9% (plus) 50 ML IV ×3 (02:09→22:43)
--- NOTE | 2021-10-21 02:18 | PC.NURSE ---
0200 Resting in bed. Awakens easily. Refuses lactulose.
[2021-10-21 06:15] LABS: Basophils % 0.2 %; Eosinophils # 0.2 10^3/uL (0.0-0.8); Eosinophils % 3.3 %; Hematocrit 33.8 % (37.0-47.0); Hemoglobin 11.1 g/dL (11.5-15.3); Lymphocytes # 0.6 10^3/uL (0.8-4.8); Lymphocytes % 11.1 %; Mean Corpuscular HGB Conc 32.8 g/dL (30.0-36.0); Mean Corpuscular Volume 97.4 fl (81-99); Mean Platelet Volume 9.8 fL (7.4-10.4); Monocytes # 0.3 10^3/uL (0.2-0.9); Monocytes % 6.2 %; Neutrophils # 4.02 10^3/uL (1.8-7.7); Neutrophils % 78.4 %; Nucleated Red Blood Cells % 0 %; Platelet Count 175 10^3/cmm (130-400); Red Blood Count 3.47 10^6/uL (4.1-5.3); Red Cell Distribution Width 14.4 % (12.1-15.1); White Blood Count 5.1 10^3/uL (4.0-10.0)
[2021-10-21] MEDS: sodium chloride 0.9% 1,000 ML 75 ML IV ×2 (06:42→19:58)
[2021-10-21 06:43] LABS: Anion Gap 12.8 (5-19); Blood Urea Nitrogen 3 mg/dL (8-23); Calcium 7.9 mg/dL (8.5-10.5); Carbon Dioxide 29 mmol/L (22-29); Chloride 94 mmol/L (98-107); Glomerular Filtration Rate 224.7 mL/min (90-130); Glucose 118 mg/dL (65-115); Magnesium 1.4 mg/dL (1.7-2.3); Osmolality Calculated 274 mOsm/kg (285-295); Sodium 133 mmol/L (136-145)
[2021-10-21 06:57] LABS: Potassium 2.8 mmol/L (3.5-5.1)
--- NOTE | 2021-10-21 07:13 | PC.NURSE ---
rcvd order from Dr Doss for potassium liquid oral 60 mEq once. inspector automatic typewriter put order in
[2021-10-21] MEDS: amlodipine 5 mg Tablet PO (08:09)
[2021-10-21] MEDS: lactulose oral liq 20 gm/30 mL UDC PO ×2 (08:09→19:58)
[2021-10-21] MEDS: potassium chloride oral liq 20 mEq/15 mL UDC 60 MEQ PO (08:09)
[2021-10-21] MEDS: sennosides-docusate Tablet 1 TAB PO ×2 (08:10→17:34)
[2021-10-21] MEDS: levothyroxine 50 mcg Tablet PO (08:10)
[2021-10-21] MEDS: morphine ER (12 HR) 15 mg Tablet PO ×2 (08:10→17:33)
[2021-10-21] MEDS: pantoprazole 40 mg SDV IVP ×2 (08:10→21:18)
[2021-10-21] MEDS: rivaroxaban 10 mg Tablet 20 MG PO (08:10)
[2021-10-21] MEDS: potassium chloride premix 100 ML 25 MEQ IV (08:11)
--- NOTE | 2021-10-21 12:35 | PM.PN ---
Subjective Subjective: Interval history: Seen today. She continues to complain of abdominal pain. Her diet was advanced to GI soft. She was able to have scrambled eggs this morning. So far has not vomited and has tolerated it okay. We will continue to monitor her. She says she is having bowel movements daily and her liquid in nature. Potassium and magnesium were low today which will be repleted. Vitals/I&O/Wt Last Vital Signs Temp 98.3 F 10/21/21 11:31 Pulse 93 10/21/21 11:31 Resp 17 10/21/21 11:31 BP 185/93 10/21/21 11:31 Pulse Ox 95 10/21/21 11:31 10/20/21 10/21/21 10/21/21 22:59 06:59 14:59 Intake Total 1340 / 1520 1000 / 2520 410 / 410 Output Total 1400 / 2150 325 / 325 Balance 1340 / 770 -400 / 370 85 / 85 Physical Exam Narrative: EXAM NARRATIVE: Was resting comfortably in her bed Abdomen soft bowel sound present, surgical incision appears clean and nonerythematous without evidence of pus. No signs of edema Appears euvolemic and well hydrated today. Nonfocal exam EOMI, PERRLA nonfocal exam Urinary Catheter Management^: Joseph: Cath Placed During This Visit: yes Reason for Continuing Indwelling Catheter: Accurate Measurement of Urinary Output in Critically Ill Patients Urinary Catheter Date of Insertion: 10/17/21 Urinary Catheter Time of Insertion: 13:45 Data : 10/21/21 05:30 10/21/21 05:30 A&P Assessment and plan (1) S/P exploratory laparotomy: Status: Acute (2) Ileus: Status: Acute (3) Ovarian cancer on right: Status: Acute (4) History of DVT (deep vein thrombosis): Status: Acute (5) COPD (chronic obstructive pulmonary disease): Status: Acute (6) SBO (small bowel obstruction): Status: Acute Additional A&P Information #Status post expiratory laparotomy #Inadvertent intraoperative bladder injury status post repair #Postop day 3 Leukocytosis resolved, creatinine normal, adequate urine output Patient has been having bowel movements daily for the last 2 days. Still complaining abdominal pain. Discussed with Dr. Roland and given patient's recent surgery and diagnosis of cancer most likely pain will not completely resolved. She is on a fentanyl patch every 72 hours. Will defer to her primary care to manage pain long-term as an outpatient. WIll monitor for 48 hours in hospital to ensure diet is tolerated prior to dc. Considering history of cancer long-acting morphine was added. Full code Clear liquid diet DVT prophylaxis Xarelto Patient wants to return home once clinically stable Attestations Medical Necessity Statement*: > 48 hour stay. Need to ensure toleration of diet Coding Level of Care Code Acute Oracle Database Manager for Chg Fwd Diagnoses S/P exploratory laparotomy Z98.890 Ileus K56.7 Ovarian cancer on right C56.1 History of DVT (deep vein thrombosis) Z86.718 COPD (chronic obstructive pulmonary disease) J44.9 SBO (small bowel obstruction) K56.602
[2021-10-21] MEDS: fentaNYL 100 mcg Patch 1 PATCH TRANSDERMA (12:37)
[2021-10-21] MEDS: magnesium sulfate premix 4 GM/100 ML PREMIX IV (12:37)
--- NOTE | 2021-10-21 16:11 | P.PN_ITS ---
Subjective Subjective: Interval history: Patient continues to complain of abdominal pain, no nausea or vomiting, tolerating regular diet, had loose stools Vitals/I&O/Wt Last Vital Signs Temp 98.5 F 10/21/21 15:41 Pulse 104 H 10/21/21 15:41 Resp 17 10/21/21 15:41 BP 168/88 10/21/21 15:41 Pulse Ox 95 10/21/21 15:41 10/21/21 10/21/21 10/21/21 06:59 14:59 22:59 Intake Total 1000 / 2520 850 / 850 Output Total 1400 / 2150 2525 / 2525 Balance -400 / 370 -1675 / -1675 Physical Exam Narrative: EXAM NARRATIVE: Abdomen: Soft, less tender, tender, incision clean dry and intact Urinary Catheter Management^: Joseph: Cath Placed During This Visit: yes Reason for Continuing Indwelling Catheter: Accurate Measurement of Urinary Output in Critically Ill Patients Urinary Catheter Date of Insertion: 10/17/21 Urinary Catheter Time of Insertion: 13:45 Data : 10/21/21 05:30 10/21/21 05:30 A&P Assessment and plan (1) SBO (small bowel obstruction): Appears to be resolving, Continue GI soft diet DC lactulose continue senna S as patient has been having loose stools Hypokalemia: Replace potassium Protonix for GI prophylaxis SCDs for DVT prophylaxis, patient is on Xarelto Plan for discharge in the next 48 hours Status: Acute (2) S/P exploratory laparotomy: Incisions clean dry and intact Continue IV Zosyn Joseph to gravity for 2 weeks due to repair of iatrogenic cystotomy Status: Acute Attestations Medical Necessity Statement*: As per primary Coding Level of Care Code Acute Principal Consulting Engineer for [facility] Fwd Diagnoses SBO (small bowel obstruction) K56.609 S/P exploratory laparotomy Z98.890
[2021-10-21] MEDS: acetaminophen 325 mg Tablet 650 MG PO (19:57)
[2021-10-21] MEDS: trazodone 150 mg Tablet PO (21:19)
[2021-10-22] VITALS (13 sets, daily range): BP systolic 162–194; BP diastolic 80–94; PULSE 90–101; RESP 16–19; TEMP 36.4–36.8; O2SAT 95–98
[2021-10-22] MEDS: lactulose oral liq 20 gm/30 mL UDC PO ×2 (01:30→08:34)
[2021-10-22] MEDS: morphine IR 15 mg Tablet PO ×4 (01:30→20:47)
[2021-10-22 02:39] LABS: Basophils % 0.2 %; Eosinophils # 0.2 10^3/uL (0.0-0.8); Eosinophils % 3.3 %; Hematocrit 34.6 % (37.0-47.0); Hemoglobin 11.5 g/dL (11.5-15.3); Lymphocytes # 0.7 10^3/uL (0.8-4.8); Lymphocytes % 12.4 %; Mean Corpuscular HGB Conc 33.2 g/dL (30.0-36.0); Mean Corpuscular Hemoglobin 31.3 pg (28.0-34.0); Mean Platelet Volume 9.6 fL (7.4-10.4); Monocytes # 0.3 10^3/uL (0.2-0.9); Monocytes % 5.9 %; Neutrophils # 4.44 10^3/uL (1.8-7.7); Neutrophils % 77.5 %; Nucleated Red Blood Cells % 0 %; Platelet Count 192 10^3/cmm (130-400); Red Blood Count 3.68 10^6/uL (4.1-5.3); White Blood Count 5.7 10^3/uL (4.0-10.0)
[2021-10-22 02:59] LABS: Anion Gap 13.1 (5-19); Blood Urea Nitrogen 4 mg/dL (8-23); Carbon Dioxide 27 mmol/L (22-29); Chloride 94 mmol/L (98-107); Glomerular Filtration Rate 224.7 mL/min (90-130); Glucose 101 mg/dL (65-115); Magnesium 1.9 mg/dL (1.7-2.3); Osmolality Calculated 269 mOsm/kg (285-295); Potassium 3.1 mmol/L (3.5-5.1); Sodium 131 mmol/L (136-145)
--- NOTE | 2021-10-22 04:16 | PC.NURSE ---
0400 restless at times. Reports having nightmares tonight. C/o abd pain. Fentanyl patch in use.
[2021-10-22] MEDS: pantoprazole 40 mg SDV IVP ×2 (08:34→21:20)
[2021-10-22] MEDS: morphine ER (12 HR) 15 mg Tablet PO ×2 (08:34→17:33)
[2021-10-22] MEDS: rivaroxaban 10 mg Tablet 20 MG PO (08:35)
[2021-10-22] MEDS: levothyroxine 50 mcg Tablet PO (08:35)
[2021-10-22] MEDS: amlodipine 5 mg Tablet PO (08:35)
[2021-10-22] MEDS: sennosides-docusate Tablet 1 TAB PO ×2 (08:35→17:33)
[2021-10-22] MEDS: piperacillin-tazobactam 3.375 GM in sodium chloride 0.9% (plus) 50 ML IV (08:51)
[2021-10-22] MEDS: sodium chloride 0.9% 1,000 ML 75 ML IV (10:24)
--- NOTE | 2021-10-22 10:45 | P.PN_ITS ---
Subjective Subjective: Interval history: Seen this morning. She states she feels a lot better compared to before. She is continuing to have bowel movements as well. She does have some abdominal pain here and there. Potassium was low this morning. We will replete. Blood pressure 183/91. I have stopped IV fluids for her. She is tolerating GI soft diet so far. Vitals/I&O/Wt Last Vital Signs Temp 98.1 F 10/22/21 08:00 Pulse 90 10/22/21 09:48 Resp 16 10/22/21 09:48 BP 183/91 10/22/21 08:00 Pulse Ox 97 10/22/21 09:48 10/21/21 10/22/21 10/22/21 22:59 06:59 14:59 Intake Total 1435 / 2285 350 / 2635 1720 / 1720 Output Total 950 / 3475 Balance 1435 / -240 -600 / -840 1720 / 1720 Physical Exam Narrative: EXAM NARRATIVE: Seen sitting up in a chair today appearing very comfortable. NG no longer present EOMI, nonfocal exam, no acute distress, appears euvolemic. There is very frail- appearing and cachectic however. Normal S1-S2, no gross murmurs. Abdomen soft bowel sound present, surgical incision appears clean and noner ythematous without evidence of pus. [place] intact. No signs of edema Urinary Catheter Management^: Joseph: Cath Placed During This Visit: yes Reason for Continuing Indwelling Catheter: Acute Urinary Retention or Obstruction Urinary Catheter Date of Insertion: 10/17/21 Urinary Catheter Time of Insertion: 13:45 Data : 10/22/21 02:08 10/22/21 02:08 A&P Assessment and plan (1) S/P exploratory laparotomy: Status: Acute (2) Ileus: Status: Acute (3) Ovarian cancer on right: Status: Acute (4) History of DVT (deep vein thrombosis): Status: Acute (5) COPD (chronic obstructive pulmonary disease): Status: Acute (6) SBO (small bowel obstruction): Status: Acute Additional A&P Information #Status post exploraory laparotomy #Inadvertent intraoperative bladder injury status post repair #Postop day 4 Leukocytosis resolved, creatinine normal, adequate urine output Patient has been having bowel movements daily Still complaining of some abdominal pain. Discussed with Dr. Roland and given patient's recent surgery and diagnosis of cancer most likely pain will not completely resolved. She is on a fentanyl patch every 72 hours. Will defer to her primary care to manage pain long-term as an outpatient. We will monitor in the hospital for another night. If patient continues to do well by tomorrow and tolerating her GI soft diet I will discharge her home. Full code GI soft diet. DVT prophylaxis Xarelto Patient wants to return home once clinically stable Attestations Medical Necessity Statement*: > 24 hours. Plan for discharge tomorrow if continues to tolerate diet and has BM. Coding Level of Care Code Acute Director Of Respiratory Therapy for [facility] Fwd Diagnoses S/P exploratory laparotomy Z98.890 Ileus K56.7 Ovarian cancer on right C56.1 History of DVT (deep vein thrombosis) Z86.718 COPD (chronic obstructive pulmonary disease) J44.9 SBO (small bowel obstruction) K56.60
[2021-10-22] MEDS: potassium chloride oral liq 20 mEq/15 mL UDC 40 MEQ PO ×2 (11:42)
--- NOTE | 2021-10-22 12:46 | PC.SOCIAL ---
IMM Updated Updated pt on IMM. No questions voiced. Provided pt a copy. Initialed, dated, & timed copy in chart.
[2021-10-22] MEDS: trazodone 150 mg Tablet PO (20:48)
[2021-10-23] VITALS (10 sets, daily range): BP systolic 164–182; BP diastolic 86–91; PULSE 86–106; RESP 16–20; TEMP 36.5–36.8; O2SAT 88–98
[2021-10-23] MEDS: morphine IR 15 mg Tablet PO ×3 (02:06→13:18)
[2021-10-23 03:15] LABS: Anion Gap 14.1 (5-19); Blood Urea Nitrogen 3 mg/dL (8-23); Calcium 8.1 mg/dL (8.5-10.5); Carbon Dioxide 27 mmol/L (22-29); Chloride 93 mmol/L (98-107); Glomerular Filtration Rate 224.7 mL/min (90-130); Glucose 103 mg/dL (65-115); Osmolality Calculated 269 mOsm/kg (285-295); Potassium 3.1 mmol/L (3.5-5.1); Sodium 131 mmol/L (136-145)
[2021-10-23] MEDS: lidocaine 1% 5 ML in potassium chloride premix 100 ML 50 ML IV (05:31)
[2021-10-23 06:36] LABS: Magnesium 1.6 mg/dL (1.7-2.3); Phosphorus 2.4 mg/dL (2.5-4.5)
[2021-10-23] MEDS: sennosides-docusate Tablet 1 TAB PO (09:07)
[2021-10-23] MEDS: amlodipine 5 mg Tablet PO (09:07)
[2021-10-23] MEDS: levothyroxine 50 mcg Tablet PO (09:07)
[2021-10-23] MEDS: rivaroxaban 10 mg Tablet 20 MG PO (09:07)
[2021-10-23] MEDS: morphine ER (12 HR) 15 mg Tablet PO (09:07)
[2021-10-23] MEDS: pantoprazole 40 mg SDV IVP (09:08)
[2021-10-23] MEDS: methylnaltrexone 12 /0.6 mL INJ 12 MG SUBCUT (09:11)
[2021-10-23] MEDS: potassium chloride oral liq 20 mEq/15 mL UDC 40 MEQ PO (09:12)
--- NOTE | 2021-10-23 10:31 | PM.DCS ---
Discharge Providers Date of Admission: 10/09/21 11:28 Date of Discharge: October 23, 2021 Attending Provider at Admission: Damon Hernandez MD Attending Provider at Discharge: Mehnaz Doss MD Primary Care Provider: Ravi Lynne MD Diagnoses at Discharge Discharge Diagnosis (1) S/P exploratory laparotomy: Status: Acute (2) Ileus: Status: Resolved (3) Ovarian cancer on right: Status: Acute (4) History of DVT (deep vein thrombosis): Status: Acute (5) COPD (chronic obstructive pulmonary disease): Status: Acute Permanent problem details: Chronically on 3 L of oxygen (6) SBO (small bowel obstruction): Status: Resolved Reason for Visit Reason for Visit: Lower ABD Pain Hospital Course Hospital Course Nisreen Carrasco is a 61 year old female who presents to the hospital with abdominal discomfort, and vomiting bilious material. She has a history of metastatic ovarian cancer, and was recently in the hospital from October 05 through October 08 with small bowel obstruction. reports that after discharge home she did have several small bowel movements, but quickly had return of pain and eventual vomiting. She has not really been able to keep anything down. No fever. No blood in emesis. Course She was admitted for SBO which was a chronic recurrent issue for her. Patient was given lactulose and NG tube was placed. Management was done conservatively at first and patient was advised to stay on liquid diet life long. However after multiple discussions with patient, she was offered exploratory laparatomy and decision was made to proceed. Adhesions were found and lysed. Patient also had intraoperative bladder injury during surgery and it was repaired. Post surgery patient did well and was able to tolerate diet and have bowel movements. Please see progress notes for further details. She continued to have abdominal pain for which she was discharged on fentanyl patch, short and long acting morphine for a week. She was to follow with PCP for further pain management. She will also f/u with Dr. Roland as an outpatient. Physical Exam Narrative: EXAM NARRATIVE: Seen sitting up in a chair today appearing very comfortable. NG no longer present EOMI, nonfocal exam, no acute distress, appears euvolemic. She is very frail-appearing and cachectic however. Normal S1-S2, no gross murmurs. Abdomen soft bowel sound present, surgical incision appears clean and nonerythematous without evidence of pus. Brinnon intact. No signs of edema Urinary Catheter Management^: Joseph: Cath Placed During This Visit: yes Reason for Continuing Indwelling Catheter: Acute Urinary Retention or Obstruction Urinary Catheter Date of Insertion: 10/17/21 Urinary Catheter Time of Insertion: 13:45 Discharge Data Data Completed and Pending: Completed Studies During Hospitalization Category Date Time Status CT abdomen pelvis w con* [id number] Stat Cat Scan 10/09/21 09:[address] abdomen pelvis wo con [id number] Stat Cat Scan 10/13/21 09:46 Completed FL upper GI small bowel series Routi ne Exams 10/16/21 07:11 Completed XR KUB portable 7 4018 Urgent Exams 10/12/21 14:21 Completed XR abdomen min 2V [id number] Routine Exams 10/17/21 06:00 Completed XR chest 1V juan ble [id number] Stat Exams 10/09/21 09:31 Completed XR chest 1V juan ble [id number] Stat Exams 10/09/21 12:26 Completed XR chest 1V juan ble [id number] Stat Exams 10/16/21 09:02 Completed XR chest 1V juan ble [id number] Stat Exams 10/16/21 16:15 Completed Pathology: Surgic al [PTH] Routine Pth 10/17/21 17:40 Completed Labs from last 24 hours 10/23/21 10/23/21 02:32 02:32 Sodium 131 L Potassium 3.1 L Chloride 93 L Carbon Dioxide 27 Anion Gap 14.1 BUN 3 L Creatinine 0.3 L GFR Calculation 224.7 H Glucose 103 Calculated Osmolal ity 269 L Calcium 8.1 L Phosphorus 2.4 L Magnesium 1.6 L Vitals: Last Vital Signs Temp 98.3 F 10/23/21 08:00 Pulse 106 H 10/23/21 08:22 Resp 20 H 10/23/21 08:22 BP 182/86 10/23/21 08:00 Pulse Ox 88 L 10/23/21 10:28 Discharge Plan Discharge Patient Disposition: Home Health Service Condition: Stable Prescriptions: New Stool Softener-Laxative 8.6-50 mg Tablet 1 tab PO BID 30 Days Qty: 60 RF: 0 amlodipine 5 mg Tablet 10 mg PO DAILY 30 Days Qty: 30 RF: 0 morphine 15 mg Tablet Extended Release 15 mg PO BID 7 Days Qty: 14 RF: 0 morphine 15 mg Tablet 15 mg PO Q8H PRN (Reason: Severe Pain) 7 Days Qty: 21 RF: 0 Continued esomeprazole magnesium [Nexium] 40 mg capsule,delayed release(DR/EC) 40 mg PO BID RF: 0 venlafaxine [Effexor XR] 150 mg capsule,extended release 24hr 150 mg PO DAILY RF: 0 levothyroxine [Synthroid] 50 mcg tablet 50 mcg PO DAILY RF: 0 Xarelto 20 mg tablet 20 mg PO DAILY RF: 0 Hold Instructions: Resume on 03/14/21. Resume normal dose on 03/14/2021 pregabalin [Lyrica] 150 mg capsule 150 mg PO TID RF: 0 enalapril maleate [Vasotec] 10 mg tablet 10 mg PO BID RF: 0 ondansetron HCl 4 mg tablet 4 mg PO Q4H PRN (Reason: Nausea) RF: 0 albuterol sulfate 90 mcg/actuation HFA aerosol inhaler 2 puff INHALATION Q6H PRN (Reason: Shortness Of Breath) RF: 0 Lynparza 150 mg Tablet 300 mg PO BID RF: 0 carisoprodol 350 mg tablet 350 mg PO TID PRN (Reason: Pain) RF: 0 trazodone 150 mg Tablet 150 mg PO BEDTIME RF: 0 fentanyl 100 mcg/hr patch 72 hour 1 patch topical Q72H RF: 0 Discontinued sennosides [senna] 8.6 mg Tablet 17.2 mg PO BID RF: 0 lactulose [Generlac] 10 gram/15 mL solution 30 ml PO Q2H PRN (Reason: Constipation) RF: 0 Relistor 8 mg/0.4 mL syringe 8 mg SUBCUT EVERY OTHER DAY PRN (Reason: constipation) Qty: 2.8 RF: 0 oxycodone 30 mg tablet 30 - 60 mg PO Q6H PRN (Reason: Pain) RF: 0 Discharge Orders: Discharge Order (Routine); Ordered 10/23/21 Ordered By: Mehnaz Doss Other Ambulatory Orders: Basic Metabolic Panel (Routine) Timeframe: 20211027 Facility: [facility] - Location: Lab - Main Lab Ordered By: Mehnaz Doss Referrals: [facility] [Other] Wali Roland MD [Physician] - 11/04/21 10:15 am Ravi Lynne MD [Primary Care Provider] - 11/04/21 1:00 pm Discharge Diet: GI Soft Discharge Activity: Increase activity as tolerated and Oxygen as instructed Patient Instructions: Laxative, Stool Softeners (By mouth), Morphine, Rapid Release (By mouth), Amlodipine (By mouth), Hypokalemia, Surgical Site Infections (DC), Exploratory Laparotomy (DC), Opioid Safety Activity Restrictions/Additional Instructions: Follow up with Primary Care Doctor for pain management. Diet Advance to normal diet as tolerated, increase fluid intake as much as possible. Activity Avoid strenuous activity for 2 weeks but continue with daily activities including walking as tolerated. Do not lift more than 10 pounds for 2 weeks Return to work/school You can return to work/ school whenever you feel ready as long as you don?t have to lift more than 10 pounds at work. If you have paperwork that needs to be completed for time off from work, please contact my office Driving You can resume driving once you stop using narcotic pain medications, and transition to non-opioid pain medications like Tylenol, Motrin, Aleve, etc. Medications Pain Take opioid pain medications as prescribed and transition to non-opioid pain medications like Tylenol, Motrin, Aleve etc. over the next few days. The goal of the pain medications is to make the pain bearable and not to be pain free since you recently had surgery. Resume all home medications after surgery as per the medication reconciliation list Nausea Nausea is common after surgery, take nausea medications as needed and stay on a liquid bland diet until nausea resolves. Constipation The combination of surgery, anesthesia and pain medications can result in constipation. Take stool softeners as prescribed. If you do not have a bowel movement in 3 days, please take an [id number] laxative like MiraLAX to address the constipation. Shower It is ok to shower but avoid getting the wound wet for 48 hours after surgery. Do not soak in bathtub, swimming pool or hot tub for 2 weeks. Wound care If glue has been used on your incisions after surgery, the glue on the incision will peel slowly over the next two weeks. The stitches used are dissolvable and will not need to be removed. Do not apply antibiotics or other medications on the incision Problems with the wound: you can develop some redness around the incision from bruising after surgery. If there is increasing pain, redness, tenderness around the incision with or without drainage, please contact my office to rule out an infection. Sometimes the skin at the incisions can separate, resulting in reopening of the wound. Cover the wound with antibiotic cream and sterile dressings and contact my office. Contact physician Call the office at [phone] during office hours or go the Emergency Room ?Fever to 100.4 or greater ?Shaking chills ?Pain that increases over time ?Redness, warmth, or pus draining from incision sites ?Persistent nausea or inability to take in liquids Discharge Attestations Time Spent in Discharge Care*: less than 30 min Status at Discharge: Cognitive status at discharge: cognitively intact, Behavioral status at discharge: cooperative, Quality Metrics Clinical Quality Measures During this hospital stay, did patient experience: None Coding Level of Care Code Acute Chg FW DC note Diagnoses S/P exploratory laparotomy Z98.890 Ileus K56.7 Ovarian cancer on right C56.1 History of DVT (deep vein thrombosis) Z86.718 COPD (chronic obstructive pulmonary disease) J44.9 SBO (small bowel obstruction) K56.609
--- NOTE | 2021-10-23 12:13 | PC.NURSE ---
Tried to call patient's Marcellus Roy [phone] twice and no answer.
--- NOTE | 2021-10-23 13:53 | PC.NURSE ---
Dicharge instructions and new medications went over with patient and spouse with verbalized understanding.
--- NOTE | 2021-10-24 10:00 | PC.SOCIAL ---
discharge follow up call. pt was concerned that she didn't get a potassium prescription. Spoke with Dr. Doss, orders for Potassium 40 meq daily, 30, no refills received. Called into pt [place] pharmacy. Dr. Doss also wants pt to have BMP drawn 1- and 11-03. spoke with [facility], they will draw pts labs, and send results to Dr. Lynne and Dr. Roland's office.
== END 2021-10-23 13:56 | disposition home health service (06) | DRG 330 ==
LOC: ER 09:02 → MEDSURG 12:00
PROVIDERS: Hospitalist; Internal Medicine; Surgery; Admitting Provider Internal Medicine; Emergency Provider Family Medicine; PCP Internal Medicine Medical Oncology; Visit Provider Internal Medicine
PROC: 0D1B0ZH Bypass Ileum to Cecum, Open Approach (ICD-10-PCS; CPT 49000; principal; 2021-10-17 13:30)
PROC: 0D1B0ZH Bypass Ileum to Cecum, Open Approach (ICD-10-PCS; 2021-10-17 13:30)
DX: K56.50 Intestinal adhesions [bands], unspecified as to partial versus complete obstruction (principal); C56.1 Malignant neoplasm of right ovary; E46 Unspecified protein-calorie malnutrition; Z68.1 Body mass index [BMI] 19.9 or less, adult; Z87.440 Personal history of urinary (tract) infections; Z79.899 Other long term (current) drug therapy; G89.29 Other chronic pain; J44.9 Chronic obstructive pulmonary disease, unspecified; F32.A Depression, unspecified; Z86.718 Personal history of other venous thrombosis and embolism; E03.9 Hypothyroidism, unspecified; Z90.710 Acquired absence of both cervix and uterus; Z90.722 Acquired absence of ovaries, bilateral; Z90.49 Acquired absence of other specified parts of digestive tract; F17.210 Nicotine dependence, cigarettes, uncomplicated; E87.6 Hypokalemia; Z99.81 Dependence on supplemental oxygen; K59.00 Constipation, unspecified; Z79.51 Long term (current) use of inhaled steroids; Z79.01 Long term (current) use of anticoagulants; Z96.0 Presence of urogenital implants; R19.03 Right lower quadrant abdominal swelling, mass and lump
CPT/HCPCS: 36415; 36416; 51702; 71045; 74018; 74019; 74176; 74177; 74240; 74248; 80048; 80053; 81001; 82962; 83605; 83735; 83880; 84100; 85025; 85049; 85384; 85610; 85730; 86850; 86900; 87635; 88307; 93005; 94640; 96372; 96374; 96375; 99285; C9113; J1100; J1170; J1650; J1956; J2060; J2212; J2270; J2405; J2543; J2710; J2765; J3010; J3475; J3480; J3490; J7030; J7040; P9041; Q0162; Q9967

== ENCOUNTER 2021-11-04 11:22 | Outpatient (CLI) | payer MEDICARE, OTHER, SELFPAY ==
[2021-11-04 12:19] LABS: Basophils % 0.6 %; Eosinophils # 0.1 10^3/uL (0.0-0.8); Eosinophils % 2.2 %; Hemoglobin 11.5 g/dL (11.5-15.3); Lymphocytes # 1.3 10^3/uL (0.8-4.8); Lymphocytes % 20.9 %; Mean Corpuscular HGB Conc 31.9 g/dL (30.0-36.0); Mean Corpuscular Hemoglobin 30.9 pg (28.0-34.0); Mean Corpuscular Volume 96.8 fl (81-99); Mean Platelet Volume 10.7 fL (7.4-10.4); Monocytes # 0.7 10^3/uL (0.2-0.9); Monocytes % 11.3 %; Neutrophils # 4.07 10^3/uL (1.8-7.7); Neutrophils % 64.5 %; Nucleated Red Blood Cells % 0 %; Platelet Count 142 10^3/cmm (130-400); Red Blood Count 3.72 10^6/uL (4.1-5.3); Red Cell Distribution Width 14.1 % (12.1-15.1); White Blood Count 6.3 10^3/uL (4.0-10.0)
[2021-11-04 12:40] VITALS: RESP 18
[2021-11-04] MEDS: morphine 4 mg/mL SDV 1 mL IV ×2 (12:40→16:25)
[2021-11-04 13:26] LABS: Alanine Aminotransferase 11 U/L (0-33); Albumin Level 3.3 g/dL (3.5-5.2); Alkaline Phosphatase 90 IU/L (35-105); Aspartate Amino Transferase 17 U/L (0-32); Blood Urea Nitrogen 10 mg/dL (8-23); CA 125 46.3 U/mL (0-35); Calcium 8.5 mg/dL (8.5-10.5); Carbon Dioxide 26 mmol/L (22-29); Chloride 90 mmol/L (98-107); Globulin 3.6 g/dL (1.3-4.6); Glucose 80 mg/dL (65-115); Osmolality Calculated 266 mOsm/kg (285-295); Sodium 129 mmol/L (136-145); Total Bilirubin 0.6 mg/dL (0.15-1.2); Total Protein 6.9 g/dL (6.6-8.7)
[2021-11-04 13:29] LABS: Anion Gap 17.2 (5-19); Potassium 4.2 mmol/L (3.5-5.1)
[2021-11-04] MEDS: famotidine 20 mg/2 mL INJ IVP (13:35)
[2021-11-04] MEDS: sodium chloride 0.9% 1,000 ML 999 ML IV (13:35)
--- NOTE | 2021-11-04 14:38 | XR_ITS ---
WS: [id number] Exam: XR abdomen min 2V [id number] Date/Time of Exam: 11/04/2021 2:49 PM Compared to previous exam 10/17/2021 Reason For Exam: OVARIAN CANCER/PAIN IN UPPER ABDOMEN RLQ No sign of acute bowel obstruction or free air. Moderate amount of gas in the rectosigmoid colon as w ell as the splenic flexure. Numerous surgical clips in the abdomen and bilateral pelvis. A right-side d ureteral stent catheter is in place appearing to be in appropriate location. No sign of organ enlar gement. Visualized bony structures are intact. XR/XR abdomen min 2V [id number] IMPRESSION: 1. Moderate amount of gas in the rectosigmoid colon and splenic flexure. This p attern is unchanged since the last exam. 2. No sign of diana bowel obstruction or pneumoperitoneum. 3. Right-sided ureteral stent catheter appearing to be in appropriate location.
[2021-11-04 16:25] VITALS: RESP 18
--- NOTE | 2021-11-04 19:37 | ONC FU_ITS ---
Dr. Lynne Patient Follow-Up Note Patient: Nisreen Carrasco V Unit #: [id number]: [id number] Dicatated By: Ravi Lynne M.D.Date of Visit:Nov 04, 2021 Onc Med Follow-up/Prog Note Chief Complaint: Ovarian cancer History of Present Illness: This is a 61 year-old woman with recurrent ovarian cancer. She had optimal resection with her initial surgery back in May 2003. She had documented recurrence in July 2008, nearly 5 years after completion of adjuvant chemotherapy with 6 cycles of carboplatin/Taxol. She was retreated at that time with carboplatin/Taxol chemotherapy, but in combination with Avastin. Treatment was stopped after 4 cycles because of worsening neuropathy, but she did have a very good clinical response with normalization of the CA-125 level. She was then followed on observation. She did well until July 2012 when she presented with small bowel obstruction. Her Ca-125 level at that point had not increased and the obstruction initially did improve with conservative management. Ultimately, though, she was confirmed to have disease recurrence in the abdomen. She underwent surgery at [facility] in October 2012. At laparotomy there were extensive adhesions in the abdomen, but there was recurrent tumor in the right mid abdomen and right upper quadrant. It was involving the cecum, the mesocolon, and the small bowel mesentery in a multiple twisted mass. There also was periaortic juanita involvement. She underwent right hemicolectomy and primary anastamosis of the bowel with complete resection of the mass. 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 She had gradual recovery from that procedure. In February 2013 she restarted chemotherapy with carboplatin in combination with gemcitabine. She experienced a significant hypersensitivity reaction to the carboplatin with the third cycle of treatment. She then continued chemotherapy with single agent gemcitabine. She experienced significant fatigue and myelosuppression with gemcitabine, even at a reduced dose level. She did not tolerate an attempt at dose escalation. She had some ongoing GI symptoms during this time, but no documented disease progression. She had a followup visit with Dr. David in January 2014. Her disease at that time appeared stable, and it was recommended that she stop chemotherapy again and just go back on observation. By May 2015 she was having significantly more abdominal pain and repeat CT abdomen/pelvis at that point was highly suspicious for recurrent metastatic disease at the site of the ileocolic anastomosis. That study showed no obvious metastatic involvement in the liver and no ascites. In June 2015 she restarted chemotherapy with weekly paclitaxel. She initially was tolerating it pretty well on a day 1/day 8 schedule every 3 weeks. She had presented at day 15 of her third cycle with severe abdominal pain and nausea. Repeat CT scan showed increasing soft tissue at the ileocolic anastomosis. There was a large amount of fecal material proximal to that site, and an area of stenosis was suspected. She did improve, though, with conservative management, and she subsequently was able to continue chemotherapy with weekly paclitaxel. As of November 2015 she had completed 7 cycles of treatment. Her chemotherapy was put on hold after her cycle 8 day 1 treatment due to diarrhea and increased abdominal pain. Abdominal x-rays showed just nonspecific gas pattern in the left abdomen. She had restaging CT abdomen/pelvis again on 01/13/2016. It showed no obstruction and no evidence of disease progression. There was no lymphadenopathy or ascites noted. Her symptoms had subsequently improved, and she did then proceed with her 9th cycle of chemotherapy. Beginning with cycle 10, I did have her change to a day 1/day 15 schedule. She had subsequently tolerated it much better. As of her follow-up visit on 08/06/2016, she appeared stable clinically, and at that point she continued with her 16th cycle of treatment. Her day 15 treatment with that cycle was not administered. She continued treatment with cycle 18 day 1 on 10/01/2016. On 10/06/2016 she was admitted to the hospital with pneumonia. CT pulmonary angiogram at that time showed no evidence of pulmonary emboli. There were widespread tree-in-bud pulmonary parenchymal nodularities and there was evidence of underlying chronic emphysema. There was new hilar or mediastinal lymphadenopathy noted, possibly reactive or neoplastic. Also noted was a superior segment left lower lobe pulmonary nodule measuring 8.4 mm. She did improve on antibiotic therapy, and she was discharged home on 10/10/2016. She had quit smoking just prior to the hospitalization. She did not receive day 15 treatment with that cycle. During subsequent follow-up, I opted to keep her chemotherapy on hold, as her disease had been very stable. Restaging CT scans of the chest, abdomen, and pelvis on 04/28/2017 showed resolved hilar and mediastinal adenopathy and resolved left lower lobe pulmonary nodule. There was stable appearance of the ileocolic anastomosis. There was no evidence of disease progression. Restaging CT scans of the chest, abdomen, and pelvis on 11/16/2018 showed unchanged medial middle lobe parenchymal opacity measuring 8-9 mm. Lingular and anterior left lower lobe subsegmental atelectasis and/or scarring also appeared unchanged. There was no evidence of disease progression in the chest, abdomen, or pelvis. In February 2019 she had presented with new onset of swelling in the right leg. Venous Doppler of the right leg on 03/09/2019 showed partially occlusive deep vein thrombosis of the superficial femoral vein with thrombus noted to extend into the greater saphenous vein. She began on anticoagulation with apixaban. Restaging CT scans on 03/22/2019 showed stable 8-9 mm pulmonary nodule in the right middle lobe. Right hilar and infrahilar hilar lymph nodes also appeared stable. Moderate right hydronephrosis with right ureterectasis appeared to be new. Slightly prominent right inguinal lymph nodes appeared unchanged. Overall, there was no evidence of disease progression in the chest, abdomen, or pelvis. She continued on observation/expectant management. Her other medical illnesses include hypertension, hypercholesterolemia and gastroesophageal reflux disease. She also has chronic obstructive pulmonary disease and she had a pretty severe episode of pneumonia in December 2008. She had stopped smoking following her hospitalization in September. 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 Other surgeries have been limited to tonsillectomy and tubal ligation. INTERIM HISTORY: In April 2019 a next generation sequencing study was performed on the specimen from her surgical resection in October 2012. It showed presence of a BRCA1 mutation, presumed to be somatic, as her original germline BRCA testing was negative. There were no other actionable mutations identified. Repeat CT abdomen/pelvis on 06/22/2019 showed enlarging soft tissue mass in the right side of the pelvis measuring 3.5 cm. This was noted to be in the area of surgical clips from her prior hysterectomy, and the appearance was felt to be consistent with local recurrence or metastatic adenopathy. The mass was noted to be adjacent to and possibly invading the psoas muscle. There was increasing hydronephrosis of the right kidney. She was referred to Dr. David. On 07/18/2019 she underwent exploratory laparotomy with extensive adhesive lysis and extensive retroperitoneal exploration and debulking of right pelvic/psoas muscle tumor. The tumor was noted to obstruct the right ureter, and the procedure included placement of a right ureteral stent. Pathology showed high-grade carcinoma which was PAX-8 and WT-1 positive. During follow-up she had ongoing problems with urinary tract infection and she continued to have significant pain in the right groin area and lower abdomen. Her repeat CT abdomen/pelvis on 12/12/2019 showed progression of a right pelvic mass compared to the June 2019 study. At that point it measured 5.8 x 3.8 x 6.5 cm and it was noted to encase the right ureter. It was inseparable from the distal small bowel loops and it was noted to abut the right L5-S1 disc space. There was interval placement of right ureteral stent with resolution of right hydronephrosis. With those findings and with the known BRCA mutation, she began a trial of therapy with olaparib 300 mg bid on 12/18/2019. As of her follow-up visit on 02/21/2020 she was still having significant pain in the right lower quadrant area and she also was reporting increased nausea and fatigue. There had been a significant decline in her CA 125 level. I had suspected that at least some of her symptoms were treatment related. She continued the olaparib, but with the dosage reduced to 200 mg twice daily. Subsequent to that visit she had 2 hospitalizations at [facility], only by 4 or 5 days. On both occasions she had bowel obstruction which was relieved with conservative management. I had seen her for a follow-up visit on 03/21/2020. She was beginning to feel better. There was further decline in the CA 125 level to 6.7 U/mL compared to 32.8 U/mL on 12/26/2019. Restaging CT of the abdomen/pelvis on 05/22/2020 showed resolution of the previously described right lower quadrant pelvic mass. A right double-J ureteral stent was noted to be in place. There was right renal cortical atrophy. There was no hydronephrosis. There was no adenopathy noted in the abdomen or pelvis. There was moderate constipation. She continued the olaparib at 200 mg [address] CT scans on 11/07/2020 showed new subsegmental atelectasis in the lingula and left lower lobe, but no change in an 8 mm right middle lobe pulmonary nodule or and a 9 mm right hilar lymph node. There was possible tumor recurrence noted in the right pelvis with a slightly lobulated soft tissue nodule measuring 2.4 cm adjacent to the ureteral stent and with possible invasion into the right psoas muscle. There were no other findings suspicious for disease progression. She continued treatment with olaparib 200 mg twice daily. On 12/10/2000 she was seen in the emergency room with abdominal pain. Her CT abdomen/pelvis showed interval moderate dilatation of multiple small bowel loops and prominent fluid distention of the stomach suggesting possible small bowel obstruction, though no obvious transition zone was evident. There was continued atrophy of the right kidney but interval worsening of mild right hydronephrosis. There was good positioning of the right ureteral stent. She then continued her treatment with olaparib. As of her follow-up visit in February 2021 she agreed to try increasing the dosage back up to 300 mg twice daily. At her follow-up visit in March, she was tolerating it with acceptable toxicity, and she continued the same treatment. On 06/29/2021 she was admitted to the hospital with pneumonia and acute hypoxic respiratory failure. At that time she had CT evidence of small bowel obstruction. She also had evidence of acute renal failure. Her blood cultures were positive for Enterococcus faecium vre and for yeast. She underwent removal of her Port-A-Cath venous access device. She did show recovery and she was discharged home on antibiotic coverage with Augmentin and linezolid, and she also continued treatment with fluconazole. On 07/13/2021 she presented to the emergency room with decreased mental status. Her CT abdomen/pelvis showed dilated small bowel suspicious for obstruction. She was transferred to the [facility] for admission. She was managed conservatively. On 07/29/2021 she was again admitted to the hospital with CT abdomen/pelvis showing multiple dilated small bowel loops consistent with small bowel obstruction. She improved with conservative treatment measures. She was seen for follow-up on August 05, 2021. At that point she continued to have relatively poor performance status, but she had been able to keep her bowels moving with a combination of MiraLAX, senna, and lactulose. With limited treatment options available, she opted to restart olaparib 300 mg twice daily. During subsequent follow-up she had further hospital admissions for nausea/vomiting on 09/07/2021 and on 10/05/2021. She was then admitted again on 10/09/2021. Her CT abdomen/pelvis at that time showed progressive small bowel dilatation and high-grade obstruction. Confluent loops of small bowel were noted near the umbilicus and the surgical anastomosis was felt to be the possible site of obstruction. An upper GI/small bowel follow-through was also consistent with small bowel obstruction. Lacking any other treatment options, she underwent exploratory laparotomy on 10/17/2021. Multiple small bowel loops were noted to be densely adherent to the abdominal wall along the laparotomy scar, for which she underwent a lengthy adhesiolysis procedure. At that point multiple loops of small bowel were noted to be adherent to the mass palpable in the retroperitoneum and the procedure was then limited to placement of a staple side to side ileocolic bypass. The procedure was complicated by iatrogenic cystotomy, which was repaired. She did not have evidence, though, of peritoneal carcinomatosis. She had a fairly uneventful postoperative recovery, and she was able to be discharged home with indwelling Joseph catheter on 10/23/2021. She is seen for a follow-up visit. Initially after returning home she was feeling quite a bit better. However, since then she has been having postprandial abdominal pain and bloating, to the point that she is having difficulty eating. Thus far she has had no recurrence of nausea/vomiting, and her bowels have typically been moving twice a day, though she has taken Relistor a couple of times. She has virtually no activity. Her ECOG score is 3. She is not having fever or night sweats. Her breathing has been okay on oxygen. She is not having cough, and she does not complain of chest pain. She currently has no significant joint or bone pain, but she does have chronic neuropathy pain. Medications: Duragesic-100 1 Patch(es) (of 100 mcg) Patch 72 Hr Transdermal q 3 days, Enalapril Maleate 1 (10 mg) Tablet Oral b.i.d., Levothroid 1 (50 mcg) Tablet Oral daily, Lyrica 1 Capsule (of 150 mg) Oral t.i.d., MiraLax Pack Oral daily, Morphine Sulfate (30 mg) Tablet Oral Take as Directed, NexIUM 1 (40 mg) Capsule Delayed Release Oral b.i.d., OxyCODONE HCl 1 (20 mg) Tablet Oral q 4 hours PRN, Proventil HFA Aerosol, solution Inhalation PRN, Senna 1 Tablet (of 8.6 mg) Capsule Oral b.i.d., Soma 1 (350 mg) Tablet Oral t.i.d., TRAZADONE 1 (150 mg) Tablet Oral at bedtime, Venlafaxine HCl 1 (150 mg) Capsule SR 24 HR Oral daily, Xarelto 1 Tablet (of 10 mg) Oral daily, Zofran 1 Tablet (of 4 mg) Oral q 4 hours Allergies: Carboplatin Vital Signs: Performed on Nov 04, 2021 12:03 Height - 67.00 in Weight - 98.0 lbs (LOW) BSA - 1.49 sq.m BMI - 15.35 (LOW) Temperature - 97.4 F (LOW) Pulse - 92 /min Respiration - 16 /min BP - 106/75 mm(hg) O2 Sat - 99 % Pain - 9 Fatigue - 7 Physical Examination: Constitutional - She appears generally weak and chronically ill, Eyes - Sclerae nonicteric. Conjunctivae clear, ENMT - No lesions noted in the oral cavity, Hematologic/Lymphatic - No cervical, clavicular, or axillary adenopathy, Respiratory - Lungs sound clear with diminished air movement bilaterally, Cardiovascular - Heart rhythm is regular. There is no murmur, gallop, or rub noted, Abdomen - Mildly distended and tympanic. There is mild abdominal tenderness. Liver and spleen are not enlarged. There is no abdominal mass noted and there is no obvious ascites. Bowel sounds are active., Extremities - No edema, Neurologic - No focal neurologic deficits noted. Lab/Imaging: Test performed on Nov 04, 2021 12:10 Sodium 129 mmol/L Potassium 4.2 mmol/L Chloride 90 mmol/L CO2 26 mmol/L Anion Gap 17.2 BUN 10 mg/dL Creatinine 0.6 mg/dL Cr Clearance (Est) 67.3500 mL/min eGFR 101.0 mL/min Glucose 80 mg/dL Osmolality - Calculated 266 mOsm/kg Calcium 8.5 mg/dL Protein, Total 6.9 g/dL Albumin 3.3 g/dL Globulin 3.6 g/dL Bilirubin, Total 0.6 mg/dL ALT (SGPT) 11 U/L AST (SGOT) 17 U/L Alkaline Phosphatase 90 IU/L WBC 6.3 10 3/uL RBC 3.72 10 6/uL HGB 11.5 g/dL HCT 36.0 % MCV 96.8 fl MCH 30.9 pg MCHC 31.9 g/dL RDW 14.1 % Platelet Count 142 10 3/cmm MPV 10.7 fL Neutrophils 4.07 10 3/uL Lymphocytes 1.3 10 3/uL Monocytes 0.7 10 3/uL Eosinophils 0.1 10 3/uL Basophils 0.0 10 3/uL Neutrophil % 64.5 % Lymphocyte % 20.9 % Monocyte % 11.3 % Eosinophil % 2.2 % Basophils % 0.6 % NRBC % 0 % CA-125 46.3 U/mL Problem List: 1. Recurrent ovarian cancer. By next generation sequencing her tumor was noted to harbor a BRCA1 mutation, presumed somatic, as her original testing for germline BRCA was negative. Her tumor also was tested and found to be MSI stable with intact mismatch repair proteins. 2. Hypertension. 3. Hyperlipidemia. 4. GERD. 5. COPD with recurrent episodes of pneumonia. 6. Degenerative disease of the spine with chronic back pain. 7. Chronic anxiety/depression. Problems Addressed with this Encounter and Plan: 1. Patient with recurrent ovarian cancer. She had optimal debulking following initial diagnosis in May 2003, and she received adjuvant chemotherapy with 6 cycles of carboplatin/paclitaxel. She had further treatment with 4 cycles of carboplatin/paclitaxel in combination with Avastin following documented recurrence in July 2008. She had restarted chemotherapy with carboplatin/gemcitabine in February 2013 following a surgical debulking procedure for disease progression with associated bowel obstruction. Her treatment was subsequently modified to single agent gemcitabine as a result of a hypersensitivity reaction to carboplatin. She had some response to the chemotherapy. As of January 2014 her disease was felt to be stable, and she was then observed off treatment. In May 2015 she restarted chemotherapy with weekly paclitaxel. Following her cycle 18 treatment on 09/17/2016 she had another hospital admission for pneumonia. As her disease had been stable and her performance status had been declining, her chemotherapy at that point was put on hold. During followup she had further evaluation by next generation sequencing, and her tumor was noted to harbor a BRCA1 mutation. It was presumed to be somatic, as her original testing for germline BRCA was negative. Her tumor also was tested and found to be MSI stable with intact mismatch repair proteins. In November 2019 she had evidence of disease progression with CT evidence of right pelvic mass with ureteral obstruction and hydronephrosis, requiring placement of right ureteral stent. In December 2019 she began a trial of therapy with olaparib, initially at 300 mg twice daily. She did show a very good response by follow-up CT scan and by CA-125 level, but she subsequently did require a dose reduction to 200 mg twice daily. In June she had a hospital admission for pneumonia/acute respiratory failure. Blood cultures were positive for Enterococcus and for yeast. She underwent removal of her Port-A-Cath venous access device. She did recover, but during subsequent follow-up she had 3 further hospital admissions for small bowel obstruction, all managed conservatively. She was seen for follow-up on 07/30/2021, and with limited treatment options available, she opted to restart olaparib at 300 mg twice daily. She has since then continued to have very marginal performance status. She has had ongoing issues with abdominal pain as well as chronic neuropathy pain, management of which has been problematic due to potential opiate associated side effects, including constipation and respiratory depression. During subsequent follow-up she had multiple hospitalizations for recurrent nausea/vomiting. On 10/09/2021 she was admitted again with her CT showing evidence of high-grade small bowel obstruction. This was also confirmed on a subsequent upper GI/small bowel follow-through. Lacking any other treatment options, she underwent exploratory laparotomy on 10/17/2021. There was evidence of small bowel obstruction at the site of the retroperitoneal mass. She did not, however, have peritoneal carcinomatosis. The procedure was limited to extensive adhesiolysis and placement of palliative side to side ileocolic bypass. She was able to be discharged home on 10/23/2021. Initially she was feeling better, but she comes in now with complaints of postprandial abdominal pain and bloating, severe enough that she is virtually unable to eat. Her abdominal x-ray shows a moderate amount of gas in the rectosigmoid colon and splenic flexure but without evidence of diana bowel obstruction or pneumoperitoneum. It does appear that her further management is going to be very problematic. She is going to be restarting famotidine. She has been taking simethicone, and I suggest that she try taking that along with her MSIR prior to eating. She is also going to try adding lactulose to see if she can keep her bowels moving better. I advised her not to restart the olaparib, as the likelihood of any benefit is going to be very low. 2. She has a right ureteral stent in place for the hydronephrosis. Her recent surgery was complicated by iatrogenic cystotomy, which was repaired. She still has indwelling Joseph catheter, and she will have follow-up with Dr. Cooper for the bladder issues and for the ureteral stent. Signed By: Ravi Lynne M.D. <<Signature on File>>
== END 2021-11-04 11:23 | disposition home or self-care (01) ==
PROVIDERS: PCP Internal Medicine Medical Oncology; Visit Provider Internal Medicine Medical Oncology
DX: C56.9 Malignant neoplasm of unspecified ovary (principal); I10 Essential (primary) hypertension; E78.5 Hyperlipidemia, unspecified; K21.9 Gastro-esophageal reflux disease without esophagitis; J44.9 Chronic obstructive pulmonary disease, unspecified; G89.29 Other chronic pain; M54.9 Dorsalgia, unspecified; F41.8 Other specified anxiety disorders; Z79.899 Other long term (current) drug therapy
CPT/HCPCS: 74019; 80053; 85025; 86304; 96366; 96374; 96375; 96376; 99215; J2270; J3490; J7030

== ENCOUNTER → 2021-11-19 09:49 | Outpatient (BNVA) | payer MEDICARE, OTHER, SELFPAY | PROVIDERS: PCP Internal Medicine Medical Oncology; Visit Provider Nurse Practitioner Family | DX: Z96.0 Presence of urogenital implants (principal) | CPT/HCPCS: 87635 ==

== ENCOUNTER 2021-11-24 08:54 | Day surgery (SDC) | payer MEDICARE, OTHER, SELFPAY ==
[2021-11-21 10:23] VITALS: BMI 15.3
[2021-11-24] VITALS (9 sets, daily range): BP systolic 121–162; BP diastolic 74–88; PULSE 67–89; RESP 16–20; TEMP 36.2–37.2; O2SAT 98–100
--- NOTE | 2021-11-24 09:00 | XR_ITS ---
WS: [id number] XR KUB [id number] REASON FOR EXAM: Retained ureteral stent FINDINGS: Multiple surgical clips along the lymph node chains in the pelvis and spine. Right ureteral stent. No change in the stent position compared to 11/04/2021. Again is noted the media l deviation of the midportion of the stent at the L5 level. XR/XR KUB [id number] IMPRESSION: Postsurgical abdomen with unchanged right ureteral stent position.
--- NOTE | 2021-11-24 09:43 | P.HPUD_ITS ---
Surgery/Procedure H&P Update DATE OF PROCEDURE: November 24, 2021 DATE H&P PERFORMED: 11/14/21 H&P UPDATE INFORMATION: I have reviewed H&P completed within last 30 days, I have examined patient prior to procedure, No changes to prior documentation and H&P is in [facility] EMR on date indicated CHANGES TO PREVIOUS DOCUMENTATION: She has been off of her Xarelto since 11/21/2021 PREOP DIAGNOSIS: Retained right ureteral stent PRIMARY INDICATION FOR PROCEDURE: retained ureteral stent PLANNED PROCEDURE: Operation Date: 11/24/21 10:00 Proposed Procedures p Cystoscopy 08169,00829/n13.30(Not Applicable) - Jake Cooper MD s Ureteral Stent Exchange(Right) - Jake Cooper MD s ESWL(Right) - Jake Cooper MD
--- NOTE | 2021-11-24 09:49 | P.OP_ITS ---
Operative Report Date of procedure: November 24, 2021 Pre-op diagnosis: Retained right ureteral stent, chronic right ureteral obstruction Post-op diagnosis: Retained right ureteral stent, chronic right ureteral obstruction Procedure done: 1. Extracorporeal shockwave lithotripsy to proximal aspect of RIGHT ureteral stent 2. Right ureteral stent exchange (7 Turkish by 26 cm double-pigtail without string) Specimens removed/disposition: Stent Pathology: None Surgeon: Kenneth Fleshing Machine Operator: Seven lithotripsy air sealing technician Estimated blood loss: Minimal Complications: None Findings: Fairly significant encrustation on the distal aspect of the stent but did not require cystolitholapaxy. Milder encrustation of the proximal aspect. 500 shocks administered to the proximal curl with good change facilitating easy removal of the stent thankfully. Brief History: Mrs. 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 She is been managed long-term with the right ureteral stent chan ing about every 4 to 6 months. Initially had a percutaneous nephrostomy tube placed prior to conversion to internal ureteral stents placed in a retrograde fashion initially November 2019 Her last stent change with a 7 Turkish by 26 cm double-pigtail stent was on 03/10/2021. She was scheduled to see me back in 4 months for planning of the neck stent change but did not keep her scheduled appointments. She is now about 9 months with the stent and for that reason she will receive ESWL to the right proximal curl after some calcification identified on preop KUB. Plan will be to remove the stent after ESWL and exchange for a new stent same size for Procedure: After routine preoperative evaluation examination and obtaining of informed consent she was taken to the operating suite on 11/24/2021 where general anesthesia was administered without difficulty after appropriate timeout was performed, SCDs confirmed to be functioning, preoperative antibiotics administered, beta-priya protocol confirmed. Positioned initially in supine position paying careful attention to avoiding pressure points. She is also on chronic Xarelto has been held for the appropriate amount of time which was confirmed preoperatively. Shock head was positioned posteriorly with the proximal curl of the right ureteral stent in the focal point. Shockwave was initiated intensity of 1 advanced an intensity of 3 with a rate of 60. After about 500 shocks she was then repositioned into dorsal lithotomy position prepped and draped in usual sterile fashion. 21 Turkish cystoscope with 30 degree lens was introduced into urethra meatus and advanced into the bladder under videoscopy. Bladder was confirmed to be normal. Stent in expected position with fairly significant encrustation on the distal aspect of the stent. A flexible tip guidewire was passed next to the stent up into the renal pelvis. A second guidewire was then passed through the distal aspect of the stent which had been pulled to the urethral meatus with grasping forceps The wire was able to be manipulated all the way into the kidney through the stent with uncurling. The stent was then removed and then the the working wire was also removed. Cystoscope was then backloaded over the safety wire and a 7 Turkish by 24 cm double-pigtail stent was advanced over the guidewire through the cystoscope into appropriate position as confirmed via fluoroscopy and cystoscopy. Stent was confirmed to be draining. There is no active bleeding. Bladder was drained and the procedure was completed. She tolerated procedure well without complications and was awakened in the operating room and returned to the recovery room in stable condition PLANS: 1. Follow-up in 4 months with KUB with scheduling of stent 1 to 2 months later potentially 2. Anticipate discharge from outpatient surgery
[2021-11-24] MEDS: sodium chloride 0.9% 1,000 ML 30 ML IV (09:56)
--- NOTE | 2021-11-24 10:00 | ANES.PREANE2 ---
Pre-Anesthetic Assessment Height/Weight: Height 1.7 m Weight 44.452 kg Temp Pulse Resp BP Pulse Ox 98.0 F 89 16 145/85 99 11/24/21 09:30 11/24/21 09:30 11/24/21 09:30 11/24/21 09:30 11/24/21 09:30 Preop Diagnosis: Retained right ureteral stent Operation Date: 11/24/21 10:00 Proposed Procedures p Cystoscopy 01408,[id number]/[id number](Not Applicable) - Jake Cooper MD s Ureteral Stent Exchange(Right) - MD taqueria [place] ESWL(Right) - Jake Cooper MD Was Beta Magdalena taken within 24 hours: N/A Was Clonidine taken within 24 hours: N/A Last intake: Intake Last Liquid Date 11/23/21 Last Liquid Time 16:00 Last Solid Date 11/23/21 Last Solid Time 16:00 Last Intake: 16:00 Social Tobacco and No alcohol 2-3 cigs per day pack(s) per day Exam alert and oriented x 3 Airway Submandibular: within normal limits Cervical ROM: within normal limits Mallampati: Class II Dentition: other (poor dentition, several missing) Pulmonary Chronic Obstructive Pulmonary Disease (3L O2 continuous) CV/HEM Deep Vein Thrombosis and Hypertension None reported Hepatic None reported GI Gastroesophageal Reflux Disease Metabolic Thyroid Disease Neuropsych Anxiety and Depression Anesthetic Plan ASA status: 3 Anesthesia: Anesthesia Evaluation and General Risk of > 500 ml blood loss (7ml/kg in children): No Medications/Allergies Home Medications Medication Instructions Recorded Confirmed Last Taken Type levothyroxine 50 mcg tablet 50 mcg PO DAILY 11/29/19 11/14/21 11/24/21 History (Synthroid) rivaroxaban 20 mg tablet (Xarelto) 20 mg PO DAILY 11/29/19 11/14/21 11/21/21 History venlafaxine 150 mg 150 mg PO DAILY 11/29/19 11/14/21 11/24/21 History capsule,extended release 24 hr (Effexor XR) trazodone 150 mg tablet 150 mg PO BEDTIME 12/01/19 11/14/21 11/23/21 History fentanyl 100 mcg/hr transdermal 1 patch TOPICAL Q72H 12/04/19 11/14/21 11/24/21 History patch enalapril maleate 10 mg tablet 10 mg PO BID 07/31/21 11/14/21 11/23/21 History (Vasotec) pregabalin 150 mg capsule (Lyrica) 150 mg PO TID 07/31/21 11/14/21 11/24/21 History albuterol sulfate 90 mcg/actuation 2 puff INHALATION Q6H PRN 09/07/21 11/14/21 11/10/21 History aerosol inhaler ondansetron HCl 4 mg tablet 4 mg PO Q4H PRN 09/07/21 11/14/21 Unknown History morphine 30 mg immediate release 30 mg PO Q2H PRN tab 11/04/21 11/14/21 11/24/21 History tablet pantoprazole 40 mg tablet,delayed 40 mg PO BID 30 Days #60 tab 11/04/21 11/14/21 11/24/21 Rx release (Protonix) Allergies Allergy/AdvReac Type Severity Reaction Status Date / Time carboplatin AdvReac ADR-Vomitin Verified 11/14/21 11:47 g Current Medications Generic Name Dose Route Start Last Admin Trade Name Freq PRN Reason Stop Dose Admin Sodium Chloride 1,000 mls @ 30 mls/hr 11/24/21 09:00 11/24/21 09:56 Sodium Chloride 0.9% IV 11/25/21 08:59 30 mls/hr .Q24H MORRIS Administration PFSH Anesthesia Medical History (Updated 11/14/21 @ 16:52 by Jake Cooper MD) Bacteremia Chronic anticoagulation Chronic pain COPD (chronic obstructive pulmonary disease) Chronically on 3 L of oxygen COPD exacerbation Depression Extrinsic ureteral obstruction Fungemia History of DVT (deep vein thrombosis) Hydronephrosis, right Hyponatremia Hypothyroidism Hypoxia Malnutrition Multifocal pneumonia Ovarian cancer on right Pelvic pain in female Recurrent UTI Renal failure SBO (small bowel obstruction) Secondary malignant neoplasm of other specified sites Small bowel obstruction Small bowel obstruction Small bowel obstruction Small bowel obstruction Transaminitis VRE bacteremia Surgical History History of hysterectomy with bilateral oophorectomy History of right hemicolectomy S/P exploratory laparotomy (~10/17/21) S/P ureteral stent placement Family History Mother , at age 59 Cancer breast Myocardial infarction (lateral wall) Father Cancer prostate cancer Pacemaker Other CAD (coronary artery disease) Hypertension Social History Smoking and tobacco status: former smoker Alcohol intake: never Adopted: No Caregiver/support person: No Lives independently: No Household members: spouse Marital status: Current occupational status: disabled History of recent travel: No Female Reproductive History Date of last menstrual period: 12/01/19 Data Anesthesia Cardiac Studies: Echocardiogram 07/03/21
[2021-11-24] MEDS: levofloxacin-dextrose 5 % 500 MG/100 ML PREMIX 100 MG IV (10:06)
--- NOTE | 2021-11-24 14:13 | ANE.PACU2 ---
Inpatient post-anesthesia follow up: Airway intact: Yes Vital signs: Temperature 97.9 F Pulse Rate 67 Respiratory Rate 18 Blood Pressure 152/86 Pulse Oximetry 98 Oxygen Delivery Me thod Nasal Cannula Oxygen Flow Rate 3 Fraction of Inspir ed Oxygen Hydration adequate: Yes Nausea and vomiting: Yes Pain level: 2 Mental status: Baseline
== END 2021-11-25 12:07 | disposition home or self-care (01) ==
PROVIDERS: PCP Internal Medicine Medical Oncology; Visit Provider Urology
PROC: 0TJB8ZZ Inspection of Bladder, Via Natural or Artificial Opening Endoscopic (ICD-10-PCS; CPT 52000; principal; 2021-11-24 10:00)
PROC: (CPT 50590; 2021-11-24 10:00)
PROC: (CPT 50590; 2021-11-24 10:00)
DX: N20.1 Calculus of ureter (principal); F17.210 Nicotine dependence, cigarettes, uncomplicated; J44.9 Chronic obstructive pulmonary disease, unspecified; Z99.81 Dependence on supplemental oxygen; I10 Essential (primary) hypertension; Z86.718 Personal history of other venous thrombosis and embolism; K21.9 Gastro-esophageal reflux disease without esophagitis; F41.9 Anxiety disorder, unspecified; F32.9 Major depressive disorder, single episode, unspecified; Z79.01 Long term (current) use of anticoagulants
CPT/HCPCS: 50590; 52332; 74018; C2625; J1100; J1956; J2250; J2405; J2704; J2710; J3010; J3490; J7030

== ENCOUNTER 2021-12-09 08:48 | Outpatient (CLI) | payer MEDICARE, OTHER, SELFPAY ==
--- NOTE | 2021-12-09 16:19 | ONC FU_ITS ---
Dr. Lynne Patient Follow-Up Note Patient: Nisreen Carrasco V Unit #: [id number]: [id number] Dicatated By: Ravi Lynne M.D.Date of Visit:Dec 09, 2021 Onc Med Follow-up/Prog Note Chief Complaint: Ovarian cancer History of Present Illness: This is a 61 year-old woman with recurrent ovarian cancer. She had optimal resection with her initial surgery back in May 2003. She had documented recurrence in July 2008, nearly 5 years after completion of adjuvant chemotherapy with 6 cycles of carboplatin/Taxol. She was retreated at that time with carboplatin/Taxol chemotherapy, but in combination with Avastin. Treatment was stopped after 4 cycles because of worsening neuropathy, but she did have a very good clinical response with normalization of the CA-125 level. She was then followed on observation. She did well until July 2012 when she presented with small bowel obstruction. Her Ca-125 level at that point had not increased and the obstruction initially did improve with conservative management. Ultimately, though, she was confirmed to have disease recurrence in the abdomen. She underwent surgery at [facility] in October 2012. At laparotomy there were extensive adhesions in the abdomen, but there was recurrent tumor in the right mid abdomen and right upper quadrant. It was involving the cecum, the mesocolon, and the small bowel mesentery in a multiple twisted mass. There also was periaortic juanita involvement. She underwent right hemicolectomy and primary anastamosis of the bowel with complete resection of the mass. 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 She had gradual recovery from that procedure. In February 2013 she restarted chemotherapy with carboplatin in combination with gemcitabine. She experienced a significant hypersensitivity reaction to the carboplatin with the third cycle of treatment. She then continued chemotherapy with single agent gemcitabine. She experienced significant fatigue and myelosuppression with gemcitabine, even at a reduced dose level. She did not tolerate an attempt at dose escalation. She had some ongoing GI symptoms during this time, but no documented disease progression. She had a followup visit with Dr. David in January 2014. Her disease at that time appeared stable, and it was recommended that she stop chemotherapy again and just go back on observation. By May 2015 she was having significantly more abdominal pain and repeat CT abdomen/pelvis at that point was highly suspicious for recurrent metastatic disease at the site of the ileocolic anastomosis. That study showed no obvious metastatic involvement in the liver and no ascites. In June 2015 she restarted chemotherapy with weekly paclitaxel. She initially was tolerating it pretty well on a day 1/day 8 schedule every 3 weeks. She had presented at day 15 of her third cycle with severe abdominal pain and nausea. Repeat CT scan showed increasing soft tissue at the ileocolic anastomosis. There was a large amount of fecal material proximal to that site, and an area of stenosis was suspected. She did improve, though, with conservative management, and she subsequently was able to continue chemotherapy with weekly paclitaxel. As of November 2015 she had completed 7 cycles of treatment. Her chemotherapy was put on hold after her cycle 8 day 1 treatment due to diarrhea and increased abdominal pain. Abdominal x-rays showed just nonspecific gas pattern in the left abdomen. She had restaging CT abdomen/pelvis again on 01/13/2016. It showed no obstruction and no evidence of disease progression. There was no lymphadenopathy or ascites noted. Her symptoms had subsequently improved, and she did then proceed with her 9th cycle of chemotherapy. Beginning with cycle 10, I did have her change to a day 1/day 15 schedule. She had subsequently tolerated it much better. As of her follow-up visit on 08/06/2016, she appeared stable clinically, and at that point she continued with her 16th cycle of treatment. Her day 15 treatment with that cycle was not administered. She continued treatment with cycle 18 day 1 on 10/01/2016. On 10/06/2016 she was admitted to the hospital with pneumonia. CT pulmonary angiogram at that time showed no evidence of pulmonary emboli. There were widespread tree-in-bud pulmonary parenchymal nodularities and there was evidence of underlying chronic emphysema. There was new hilar or mediastinal lymphadenopathy noted, possibly reactive or neoplastic. Also noted was a superior segment left lower lobe pulmonary nodule measuring 8.4 mm. She did improve on antibiotic therapy, and she was discharged home on 10/10/2016. She had quit smoking just prior to the hospitalization. She did not receive day 15 treatment with that cycle. During subsequent follow-up, I opted to keep her chemotherapy on hold, as her disease had been very stable. Restaging CT scans of the chest, abdomen, and pelvis on 04/28/2017 showed resolved hilar and mediastinal adenopathy and resolved left lower lobe pulmonary nodule. There was stable appearance of the ileocolic anastomosis. There was no evidence of disease progression. Restaging CT scans of the chest, abdomen, and pelvis on 11/16/2018 showed unchanged medial middle lobe parenchymal opacity measuring 8-9 mm. Lingular and anterior left lower lobe subsegmental atelectasis and/or scarring also appeared unchanged. There was no evidence of disease progression in the chest, abdomen, or pelvis. In February 2019 she had presented with new onset of swelling in the right leg. Venous Doppler of the right leg on 03/09/2019 showed partially occlusive deep vein thrombosis of the superficial femoral vein with thrombus noted to extend into the greater saphenous vein. She began on anticoagulation with apixaban. Restaging CT scans on 03/22/2019 showed stable 8-9 mm pulmonary nodule in the right middle lobe. Right hilar and infrahilar hilar lymph nodes also appeared stable. Moderate right hydronephrosis with right ureterectasis appeared to be new. Slightly prominent right inguinal lymph nodes appeared unchanged. Overall, there was no evidence of disease progression in the chest, abdomen, or pelvis. She continued on observation/expectant management. Her other medical illnesses include hypertension, hypercholesterolemia and gastroesophageal reflux disease. She also has chronic obstructive pulmonary disease and she had a pretty severe episode of pneumonia in December 2008. She had stopped smoking following her hospitalization in September. 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 Other surgeries have been limited to tonsillectomy and tubal ligation. INTERIM HISTORY: In April 2019 a next generation sequencing study was performed on the specimen from her surgical resection in October 2012. It showed presence of a BRCA1 mutation, presumed to be somatic, as her original germline BRCA testing was negative. There were no other actionable mutations identified. Repeat CT abdomen/pelvis on 06/22/2019 showed enlarging soft tissue mass in the right side of the pelvis measuring 3.5 cm. This was noted to be in the area of surgical clips from her prior hysterectomy, and the appearance was felt to be consistent with local recurrence or metastatic adenopathy. The mass was noted to be adjacent to and possibly invading the psoas muscle. There was increasing hydronephrosis of the right kidney. She was referred to Dr. David. On 07/18/2019 she underwent exploratory laparotomy with extensive adhesive lysis and extensive retroperitoneal exploration and debulking of right pelvic/psoas muscle tumor. The tumor was noted to obstruct the right ureter, and the procedure included placement of a right ureteral stent. Pathology showed high-grade carcinoma which was PAX-8 and WT-1 positive. During follow-up she had ongoing problems with urinary tract infection and she continued to have significant pain in the right groin area and lower abdomen. Her repeat CT abdomen/pelvis on 12/12/2019 showed progression of a right pelvic mass compared to the June 2019 study. At that point it measured 5.8 x 3.8 x 6.5 cm and it was noted to encase the right ureter. It was inseparable from the distal small bowel loops and it was noted to abut the right L5-S1 disc space. There was interval placement of right ureteral stent with resolution of right hydronephrosis. With those findings and with the known BRCA mutation, she began a trial of therapy with olaparib 300 mg bid on 12/18/2019. As of her follow-up visit on 02/21/2020 she was still having significant pain in the right lower quadrant area and she also was reporting increased nausea and fatigue. There had been a significant decline in her CA 125 level. I had suspected that at least some of her symptoms were treatment related. She continued the olaparib, but with the dosage reduced to 200 mg twice daily. Subsequent to that visit she had 2 hospitalizations at [facility] in [place], only by 4 or 5 days. On both occasions she had bowel obstruction which was relieved with conservative management. I had seen her for a follow-up visit on 03/21/2020. She was beginning to feel better. There was further decline in the CA 125 level to 6.7 U/mL compared to 32.8 U/mL on 12/26/2019. Restaging CT of the abdomen/pelvis on 05/22/2020 showed resolution of the previously described right lower quadrant pelvic mass. A right double-J ureteral stent was noted to be in place. There was right renal cortical atrophy. There was no hydronephrosis. There was no adenopathy noted in the abdomen or pelvis. There was moderate constipation. She continued the olaparib at 200 [address] CT scans on 11/07/2020 showed new subsegmental atelectasis in the lingula and left lower lobe, but no change in an 8 mm right middle lobe pulmonary nodule or and a 9 mm right hilar lymph node. There was possible tumor recurrence noted in the right pelvis with a slightly lobulated soft tissue nodule measuring 2.4 cm adjacent to the ureteral stent and with possible invasion into the right psoas muscle. There were no other findings suspicious for disease progression. She continued treatment with olaparib 200 mg twice daily. On 12/10/2000 she was seen in the emergency room with abdominal pain. Her CT abdomen/pelvis showed interval moderate dilatation of multiple small bowel loops and prominent fluid distention of the stomach suggesting possible small bowel obstruction, though no obvious transition zone was evident. There was continued atrophy of the right kidney but interval worsening of mild right hydronephrosis. There was good positioning of the right ureteral stent. She then continued her treatment with olaparib. As of her follow-up visit in February 2021 she agreed to try increasing the dosage back up to 300 mg twice daily. At her follow-up visit in March, she was tolerating it with acceptable toxicity, and she continued the same treatment. On 06/29/2021 she was admitted to the hospital with pneumonia and acute hypoxic respiratory failure. At that time she had CT evidence of small bowel obstruction. She also had evidence of acute renal failure. Her blood cultures were positive for Enterococcus faecium vre and for yeast. She underwent removal of her Port-A-Cath venous access device. She did show recovery and she was discharged home on antibiotic coverage with Augmentin and linezolid, and she also continued treatment with fluconazole. On 07/13/2021 she presented to the emergency room with decreased mental status. Her CT abdomen/pelvis showed dilated small bowel suspicious for obstruction. She was transferred to the [facility] for admission. She was managed conservatively. On 07/29/2021 she was again admitted to the hospital with CT abdomen/pelvis showing multiple dilated small bowel loops consistent with small bowel obstruction. She improved with conservative treatment measures. She was seen for follow-up on August 05, 2021. At that point she continued to have relatively poor performance status, but she had been able to keep her bowels moving with a combination of MiraLAX, senna, and lactulose. With limited treatment options available, she opted to restart olaparib 300 mg twice daily. During subsequent follow-up she had further hospital admissions for nausea/vomiting on 09/07/2021 and on 10/05/2021. She was then admitted again on 10/09/2021. Her CT abdomen/pelvis at that time showed progressive small bowel dilatation and high-grade obstruction. Confluent loops of small bowel were noted near the umbilicus and the surgical anastomosis was felt to be the possible site of obstruction. An upper GI/small bowel follow-through was also consistent with small bowel obstruction. Lacking any other treatment options, she underwent exploratory laparotomy on 10/17/2021. Multiple small bowel loops were noted to be densely adherent to the abdominal wall along the laparotomy scar, for which she underwent a lengthy adhesiolysis procedure. At that point multiple loops of small bowel were noted to be adherent to the mass palpable in the retroperitoneum and the procedure was then limited to placement of a staple side to side ileocolic bypass. The procedure was complicated by iatrogenic cystotomy, which was repaired. She did not have evidence, though, of peritoneal carcinomatosis. She had a fairly uneventful postoperative recovery, and she was able to be discharged home on 10/23/2021. She initially felt much better, but as of her follow-up visit on 11/04/2021 she was again having significant abdominal pain, constipation, and difficulty eating. She is seen for a scheduled visit. She has been feeling a little better generally than she was last month, but it does change from day-to-day. Overall she still having horrible problems with her stomach, mainly abdominal pain and gas, and she continues to have difficulty eating. She has been having a lot of pain in her right lower quadrant area and in her right hip, and that seems to get worse with activity. She has ongoing problems with constipation, despite taking MiraLAX and a stool softener. She tends to have loose stools after taking a Relistor injection. She has limited activity, but she is up and around and she is able to do some walking. ECOG score is 2. She does not have fever or night sweats. Her breathing has improved, though she is still on continuous oxygen. She does not complain of cough and she has not been having chest pain. Bladder function has been okay. She has no other joint or bone pain. She does not complain of headache. She sometimes has orthostatic lightheadedness. Her neuropathy is the same. Medications: Duragesic-100 1 Patch(es) (of 100 mcg) Patch 72 Hr Transdermal q 3 days, Enalapril Maleate 1 (10 mg) Tablet Oral b.i.d., Levothroid 1 (50 mcg) Tablet Oral daily, Lyrica 1 Capsule (of 150 mg) Oral t.i.d., MiraLax Pack Oral daily, Morphine Sulfate (30 mg) Tablet Oral Take as Directed, NexIUM 1 (40 mg) Capsule Delayed Release Oral b.i.d., OxyCODONE HCl 1 (20 mg) Tablet Oral q 4 hours PRN, Proventil HFA Aerosol, solution Inhalation PRN, Senna 1 Tablet (of 8.6 mg) Capsule Oral b.i.d., Soma 1 (350 mg) Tablet Oral t.i.d., TRAZADONE 1 (150 mg) Tablet Oral at bedtime, Venlafaxine HCl 1 (150 mg) Capsule SR 24 HR Oral daily, Xarelto 1 Tablet (of 10 mg) Oral daily, Zofran 1 Tablet (of 4 mg) Oral q 4 hours Allergies: Carboplatin Vital Signs: Performed on Dec 09, 2021 11:26 Height - 67.00 in Weight - 99.8 lbs (HIGH) BSA - 1.50 sq.m BMI - 15.63 (LOW) Temperature - 99.2 F (HIGH) Pulse - 117 /min (HIGH) Respiration - 18 /min BP - 124/81 mm(hg) O2 Sat - 96 % Pain - 8 Fatigue - 6 Physical Examination: Constitutional - She appears chronically ill and frail, Eyes - Sclerae nonicteric. Conjunctivae clear, ENMT - No lesions noted in the oral cavity, Hematologic/Lymphatic - No cervical, clavicular, or axillary adenopathy, Respiratory - Lungs sound clear with diminished air movement bilaterally, Cardiovascular - Heart rhythm is regular. There is no murmur, gallop, or rub noted, Abdomen - Slightly distended and generally firm. There is mild abdominal tenderness. Liver and spleen are not enlarged. There is no abdominal mass noted and there is no obvious ascites, Extremities - Mild edema at the ankles, Neurologic - No focal neurologic deficits noted. Lab/Imaging: Test performed on Nov 04, 2021 12:10 Sodium 129 mmol/L Potassium 4.2 mmol/L Chloride 90 mmol/L CO2 26 mmol/L Anion Gap 17.2 BUN 10 mg/dL Creatinine 0.6 mg/dL Cr Clearance (Est) 67.3500 mL/min eGFR 101.0 mL/min Glucose 80 mg/dL Osmolality - Calculated 266 mOsm/kg Calcium 8.5 mg/dL Protein, Total 6.9 g/dL Albumin 3.3 g/dL Globulin 3.6 g/dL Bilirubin, Total 0.6 mg/dL ALT (SGPT) 11 U/L AST (SGOT) 17 U/L Alkaline Phosphatase 90 IU/L WBC 6.3 10 3/uL RBC 3.72 10 6/uL HGB 11.5 g/dL HCT 36.0 % MCV 96.8 fl MCH 30.9 pg MCHC 31.9 g/dL RDW 14.1 % Platelet Count 142 10 3/cmm MPV 10.7 fL Neutrophils 4.07 10 3/uL Lymphocytes 1.3 10 3/uL Monocytes 0.7 10 3/uL Eosinophils 0.1 10 3/uL Basophils 0.0 10 3/uL Neutrophil % 64.5 % Lymphocyte % 20.9 % Monocyte % 11.3 % Eosinophil % 2.2 % Basophils % 0.6 % NRBC % 0 % CA-125 46.3 U/mL Problem List: 1. Recurrent ovarian cancer. By next generation sequencing her tumor was noted to harbor a BRCA1 mutation, presumed somatic, as her original testing for germline BRCA was negative. Her tumor also was tested and found to be MSI stable with intact mismatch repair proteins. 2. Hypertension. 3. Hyperlipidemia. 4. GERD. 5. COPD with recurrent episodes of pneumonia. 6. Degenerative disease of the spine with chronic back pain. 7. Chronic anxiety/depression. Problems Addressed with this Encounter and Plan: Patient with recurrent ovarian cancer. She had optimal debulking following initial diagnosis in May 2003, and she received adjuvant chemotherapy with 6 cycles of carboplatin/paclitaxel. She had further treatment with 4 cycles of carboplatin/paclitaxel in combination with Avastin following documented recurrence in July 2008. She had restarted chemotherapy with carboplatin/gemcitabine in February 2013 following a surgical debulking procedure for disease progression with associated bowel obstruction. Her treatment was subsequently modified to single agent gemcitabine as a result of a hypersensitivity reaction to carboplatin. She had some response to the chemotherapy. As of January 2014 her disease was felt to be stable, and she was then observed off treatment. In May 2015 she restarted chemotherapy with weekly paclitaxel. Following her cycle 18 treatment on 09/17/2016 she had another hospital admission for pneumonia. As her disease had been stable and her performance status had been declining, her chemotherapy at that point was put on hold. During followup she had further evaluation by next generation sequencing, and her tumor was noted to harbor a BRCA1 mutation. It was presumed to be somatic, as her original testing for germline BRCA was negative. Her tumor also was tested and found to be MSI stable with intact mismatch repair proteins. In November 2019 she had evidence of disease progression with CT evidence of right pelvic mass with ureteral obstruction and hydronephrosis, requiring placement of right ureteral stent. In December 2019 she began a trial of therapy with olaparib, initially at 300 mg twice daily. She did show a very good response by follow-up CT scan and by CA-125 level, but she subsequently did require a dose reduction to 200 mg twice daily. In June she had a hospital admission for pneumonia/acute respiratory failure. Blood cultures were positive for Enterococcus and for yeast. She underwent removal of her Port-A-Cath venous access device. She did recover, but during subsequent follow-up she had 3 further hospital admissions for small bowel obstruction, all managed conservatively. She was seen for follow-up on 07/30/2021, and with limited treatment options available, she opted to restart olaparib at 300 mg twice daily. She has since then continued to have very marginal performance status. She has had ongoing issues with abdominal pain as well as chronic neuropathy pain, management of which has been problematic due to potential opiate associated side effects, including constipation and respiratory depression. During subsequent follow-up she had multiple hospitalizations for recurrent nausea/vomiting. On 10/09/2021 she was admitted again with her CT showing evidence of high-grade small bowel obstruction. This was also confirmed on a subsequent upper GI/small bowel follow-through. Lacking any other treatment options, she underwent exploratory laparotomy on 10/17/2021. There was evidence of small bowel obstruction at the site of the retroperitoneal mass. She did not, however, have peritoneal carcinomatosis. The procedure was limited to extensive adhesiolysis and placement of palliative side to side ileocolic bypass. She was able to be discharged home on 10/23/2021. Initially she was feeling better, but as of her follow-up visit on 11/04/2021 she was having more abdominal pain, constipation, and difficulty eating. She has since then felt a little better, but she continues to complain of abdominal pain and gas, and she still has limited oral intake and marginal performance status. Her overall condition and prognosis remain poor, but for now she continues symptomatic management. I will have her try adding Amitiza 24 mcg twice daily to her bowel regimen, but that will be subject to verification of insurance coverage. Medications otherwise remain the same. I will see her again in 1 month. Signed By: Ravi Lynne M.D. <<Signature on File>>
== END 2021-12-09 08:49 | disposition home or self-care (01) ==
PROVIDERS: Visit Provider Internal Medicine Medical Oncology
DX: C56.1 Malignant neoplasm of right ovary (principal); I10 Essential (primary) hypertension; E78.00 Pure hypercholesterolemia, unspecified; K21.9 Gastro-esophageal reflux disease without esophagitis; J44.9 Chronic obstructive pulmonary disease, unspecified; F41.9 Anxiety disorder, unspecified; F32.A Depression, unspecified; Z79.899 Other long term (current) drug therapy; Z87.891 Personal history of nicotine dependence
CPT/HCPCS: 99214

== ENCOUNTER 2022-01-06 10:54 | Outpatient (CLI) | payer MEDICARE, OTHER, SELFPAY ==
[2022-01-06 11:35] LABS: Basophils # 0.1 10^3/uL (0.0-0.1); Basophils % 0.5 %; Eosinophils % 0.2 %; Hematocrit 30.2 % (37.0-47.0); Hemoglobin 9.5 g/dL (11.5-15.3); Lymphocytes # 1.3 10^3/uL (0.8-4.8); Lymphocytes % 13.6 %; Mean Corpuscular HGB Conc 31.5 g/dL (30.0-36.0); Mean Corpuscular Hemoglobin 27.9 pg (28.0-34.0); Mean Corpuscular Volume 88.8 fl (81-99); Mean Platelet Volume 9.7 fL (7.4-10.4); Monocytes # 0.7 10^3/uL (0.2-0.9); Monocytes % 7.5 %; Neutrophils # 7.17 10^3/uL (1.8-7.7); Neutrophils % 77.9 %; Nucleated Red Blood Cells % 0 %; Platelet Count 247 10^3/cmm (130-400); Red Cell Distribution Width 13.6 % (12.1-15.1); White Blood Count 9.2 10^3/uL (4.0-10.0)
[2022-01-06 11:54] LABS: Alanine Aminotransferase 6 U/L (0-33); Albumin Level 2.9 g/dL (3.5-5.2); Alkaline Phosphatase 90 IU/L (35-105); Anion Gap 12.2 (5-19); Aspartate Amino Transferase 11 U/L (0-32); Blood Urea Nitrogen 13 mg/dL (8-23); Carbon Dioxide 31 mmol/L (22-29); Chloride 91 mmol/L (98-107); Globulin 3.7 g/dL (1.3-4.6); Glucose 89 mg/dL (65-115); Osmolality Calculated 270 mOsm/kg (285-295); Potassium 4.2 mmol/L (3.5-5.1); Sodium 130 mmol/L (136-145); Total Bilirubin 0.4 mg/dL (0.15-1.2); Total Protein 6.6 g/dL (6.6-8.7)
[2022-01-06 12:49] LABS: CA 125 26.6 U/mL (0-35)
--- NOTE | 2022-01-13 08:40 | ONC FU_ITS ---
Viridiana Falcon Progress Note Patient: Romelia Carrasco V Unit #: [id number]: [id number] Dicatated By: Viridiana Falcon N.P.Date of Visit:Jan 06, 2022 Onc MED Follow-up/Prog Note Chief Complaint: Ovarian cancer History of Present Illness: This is a 61 year-old woman with recurrent ovarian cancer. She had optimal resection with her initial surgery back in May 2003. She had documented recurrence in July 2008, nearly 5 years after completion of adjuvant chemotherapy with 6 cycles of carboplatin/Taxol. She was retreated at that time with carboplatin/Taxol chemotherapy, but in combination with Avastin. Treatment was stopped after 4 cycles because of worsening neuropathy, but she did have a very good clinical response with normalization of the CA-125 level. She was then followed on observation. She did well until July 2012 when she presented with small bowel obstruction. Her Ca-125 level at that point had not increased and the obstruction initially did improve with conservative management. Ultimately, though, she was confirmed to have disease recurrence in the abdomen. She underwent surgery at [facility] in October 2012. At laparotomy there were extensive adhesions in the abdomen, but there was recurrent tumor in the right mid abdomen and right upper quadrant. It was involving the cecum, the mesocolon, and the small bowel mesentery in a multiple twisted mass. There also was periaortic juanita involvement. She underwent right hemicolectomy and primary anastamosis of the bowel with complete resection of the mass. 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 She had gradual recovery from that procedure. In February 2013 she restarted chemotherapy with carboplatin in combination with gemcitabine. She experienced a significant hypersensitivity reaction to the carboplatin with the third cycle of treatment. She then continued chemotherapy with single agent gemcitabine. She experienced significant fatigue and myelosuppression with gemcitabine, even at a reduced dose level. She did not tolerate an attempt at dose escalation. She had some ongoing GI symptoms during this time, but no documented disease progression. She had a followup visit with Dr. David in January 2014. Her disease at that time appeared stable, and it was recommended that she stop chemotherapy again and just go back on observation. By May 2015 she was having significantly more abdominal pain and repeat CT abdomen/pelvis at that point was highly suspicious for recurrent metastatic disease at the site of the ileocolic anastomosis. That study showed no obvious metastatic involvement in the liver and no ascites. In June 2015 she restarted chemotherapy with weekly paclitaxel. She initially was tolerating it pretty well on a day 1/day 8 schedule every 3 weeks. She had presented at day 15 of her third cycle with severe abdominal pain and nausea. Repeat CT scan showed increasing soft tissue at the ileocolic anastomosis. There was a large amount of fecal material proximal to that site, and an area of stenosis was suspected. She did improve, though, with conservative management, and she subsequently was able to continue chemotherapy with weekly paclitaxel. As of November 2015 she had completed 7 cycles of treatment. Her chemotherapy was put on hold after her cycle 8 day 1 treatment due to diarrhea and increased abdominal pain. Abdominal x-rays showed just nonspecific gas pattern in the left abdomen. She had restaging CT abdomen/pelvis again on 01/13/2016. It showed no obstruction and no evidence of disease progression. There was no lymphadenopathy or ascites noted. Her symptoms had subsequently improved, and she did then proceed with her 9th cycle of chemotherapy. Beginning with cycle 10, I did have her change to a day 1/day 15 schedule. She had subsequently tolerated it much better. As of her follow-up visit on 08/06/2016, she appeared stable clinically, and at that point she continued with her 16th cycle of treatment. Her day 15 treatment with that cycle was not administered. She continued treatment with cycle 18 day 1 on 10/01/2016. On 10/06/2016 she was admitted to the hospital with pneumonia. CT pulmonary angiogram at that time showed no evidence of pulmonary emboli. There were widespread tree-in-bud pulmonary parenchymal nodularities and there was evidence of underlying chronic emphysema. There was new hilar or mediastinal lymphadenopathy noted, possibly reactive or neoplastic. Also noted was a superior segment left lower lobe pulmonary nodule measuring 8.4 mm. She did improve on antibiotic therapy, and she was discharged home on 10/10/2016. She had quit smoking just prior to the hospitalization. She did not receive day 15 treatment with that cycle. During subsequent follow-up, I opted to keep her chemotherapy on hold, as her disease had been very stable. Restaging CT scans of the chest, abdomen, and pelvis on 04/28/2017 showed resolved hilar and mediastinal adenopathy and resolved left lower lobe pulmonary nodule. There was stable appearance of the ileocolic anastomosis. There was no evidence of disease progression. Restaging CT scans of the chest, abdomen, and pelvis on 11/16/2018 showed unchanged medial middle lobe parenchymal opacity measuring 8-9 mm. Lingular and anterior left lower lobe subsegmental atelectasis and/or scarring also appeared unchanged. There was no evidence of disease progression in the chest, abdomen, or pelvis. In February 2019 she had presented with new onset of swelling in the right leg. Venous Doppler of the right leg on 03/09/2019 showed partially occlusive deep vein thrombosis of the superficial femoral vein with thrombus noted to extend into the greater saphenous vein. She began on anticoagulation with apixaban. Restaging CT scans on 03/22/2019 showed stable 8-9 mm pulmonary nodule in the right middle lobe. Right hilar and infrahilar hilar lymph nodes also appeared stable. Moderate right hydronephrosis with right ureterectasis appeared to be new. Slightly prominent right inguinal lymph nodes appeared unchanged. Overall, there was no evidence of disease progression in the chest, abdomen, or pelvis. She continued on observation/expectant management. Her other medical illnesses include hypertension, hypercholesterolemia and gastroesophageal reflux disease. She also has chronic obstructive pulmonary disease and she had a pretty severe episode of pneumonia in December 2008. She had stopped smoking following her hospitalization in September. 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 Other surgeries have been limited to tonsillectomy and tubal ligation. INTERIM HISTORY: In April 2019 a next generation sequencing study was performed on the specimen from her surgical resection in October 2012. It showed presence of a BRCA1 mutation, presumed to be somatic, as her original germline BRCA testing was negative. There were no other actionable mutations identified. Repeat CT abdomen/pelvis on 06/22/2019 showed enlarging soft tissue mass in the right side of the pelvis measuring 3.5 cm. This was noted to be in the area of surgical clips from her prior hysterectomy, and the appearance was felt to be consistent with local recurrence or metastatic adenopathy. The mass was noted to be adjacent to and possibly invading the psoas muscle. There was increasing hydronephrosis of the right kidney. She was referred to Dr. David. On 07/18/2019 she underwent exploratory laparotomy with extensive adhesive lysis and extensive retroperitoneal exploration and debulking of right pelvic/psoas muscle tumor. The tumor was noted to obstruct the right ureter, and the procedure included placement of a right ureteral stent. Pathology showed high-grade carcinoma which was PAX-8 and WT-1 positive. During follow-up she had ongoing problems with urinary tract infection and she continued to have significant pain in the right groin area and lower abdomen. Her repeat CT abdomen/pelvis on 12/12/2019 showed progression of a right pelvic mass compared to the June 2019 study. At that point it measured 5.8 x 3.8 x 6.5 cm and it was noted to encase the right ureter. It was inseparable from the distal small bowel loops and it was noted to abut the right L5-S1 disc space. There was interval placement of right ureteral stent with resolution of right hydronephrosis. With those findings and with the known BRCA mutation, she began a trial of therapy with olaparib 300 mg bid on 12/18/2019. As of her follow-up visit on 02/21/2020 she was still having significant pain in the right lower quadrant area and she also was reporting increased nausea and fatigue. There had been a significant decline in her CA 125 level. I had suspected that at least some of her symptoms were treatment related. She continued the olaparib, but with the dosage reduced to 200 mg twice daily. Subsequent to that visit she had 2 hospitalizations at [facility] in [place], only by 4 or 5 days. On both occasions she had bowel obstruction which was relieved with conservative management. I had seen her for a follow-up visit on 03/21/2020. She was beginning to feel better. There was further decline in the CA 125 level to 6.7 U/mL compared to 32.8 U/mL on 12/26/2019. Restaging CT of the abdomen/pelvis on 05/22/2020 showed resolution of the previously described right lower quadrant pelvic mass. A right double-J ureteral stent was noted to be in place. There was right renal cortical atrophy. There was no hydronephrosis. There was no adenopathy noted in the abdomen or pelvis. There was moderate constipation. She continued the olaparib at 200 [address] scans on 11/07/2020 showed new subsegmental atelectasis in the lingula and left lower lobe, but no change in an 8 mm right middle lobe pulmonary nodule or and a 9 mm right hilar lymph node. There was possible tumor recurrence noted in the right pelvis with a slightly lobulated soft tissue nodule measuring 2.4 cm adjacent to the ureteral stent and with possible invasion into the right psoas muscle. There were no other findings suspicious for disease progression. She continued treatment with olaparib 200 mg twice daily. On 12/10/2000 she was seen in the emergency room with abdominal pain. Her CT abdomen/pelvis showed interval moderate dilatation of multiple small bowel loops and prominent fluid distention of the stomach suggesting possible small bowel obstruction, though no obvious transition zone was evident. There was continued atrophy of the right kidney but interval worsening of mild right hydronephrosis. There was good positioning of the right ureteral stent. She then continued her treatment with olaparib. As of her follow-up visit in February 2021 she agreed to try increasing the dosage back up to 300 mg twice daily. At her follow-up visit in March, she was tolerating it with acceptable toxicity, and she continued the same treatment. On 06/29/2021 she was admitted to the hospital with pneumonia and acute hypoxic respiratory failure. At that time she had CT evidence of small bowel obstruction. She also had evidence of acute renal failure. Her blood cultures were positive for Enterococcus faecium vre and for yeast. She underwent removal of her Port-A-Cath venous access device. She did show recovery and she was discharged home on antibiotic coverage with Augmentin and linezolid, and she also continued treatment with fluconazole. On 07/13/2021 she presented to the emergency room with decreased mental status. Her CT abdomen/pelvis showed dilated small bowel suspicious for obstruction. She was transferred to the [facility] for admission. She was managed conservatively. On 07/29/2021 she was again admitted to the hospital with CT abdomen/pelvis showing multiple dilated small bowel loops consistent with small bowel obstruction. She improved with conservative treatment measures. She was seen for follow-up on August 05, 2021. At that point she continued to have relatively poor performance status, but she had been able to keep her bowels moving with a combination of MiraLAX, senna, and lactulose. With limited treatment options available, she opted to restart olaparib 300 mg twice daily. During subsequent follow-up she had further hospital admissions for nausea/vomiting on 09/07/2021 and on 10/05/2021. She was then admitted again on 10/09/2021. Her CT abdomen/pelvis at that time showed progressive small bowel dilatation and high-grade obstruction. Confluent loops of small bowel were noted near the umbilicus and the surgical anastomosis was felt to be the possible site of obstruction. An upper GI/small bowel follow-through was also consistent with small bowel obstruction. Lacking any other treatment options, she underwent exploratory laparotomy on 10/17/2021. Multiple small bowel loops were noted to be densely adherent to the abdominal wall along the laparotomy scar, for which she underwent a lengthy adhesiolysis procedure. At that point multiple loops of small bowel were noted to be adherent to the mass palpable in the retroperitoneum and the procedure was then limited to placement of a staple side to side ileocolic bypass. The procedure was complicated by iatrogenic cystotomy, which was repaired. She did not have evidence, though, of peritoneal carcinomatosis. She had a fairly uneventful postoperative recovery, and she was able to be discharged home on 10/23/2021. She initially felt much better, but as of her follow-up visit on 11/04/2021 she was again having significant abdominal pain, constipation, and difficulty eating. Patient presents today for follow-up. She continues to be weak. Her appetite is fair. She continues to have the lower abdominal pain and gas pain. She was started on Amitiza for that and it made her sick so she discontinued. She can have severe fatigue but she is able to get up and move around some. She denies shortness of breath, cough, chest pain. No urinary symptoms. No joint or bone pain. She was on Lynparza for treatment but was unable to tolerate due to numerous side effects. At this point she is not taking anything for treatment. Review Of Symptoms: See above. Past Medical History: Chronic back pain (secondary to ruptured discs) Depression Peripheral neuropathy in 2008 Hypothyroidism in 2007 Chronic obstructive pulmonary disease in 2006 Anxiety in 2002 Coronary artery disease in 2002 Hypercholesterolemia in 2002 Hypertension in 2002 Gastroesophageal reflux disease in 2002 Past Surgical History: Stent placement in the ureter Covid vaccine #1 in 2020 Flu vaccine in 2019 Flu vaccine in 2018 - left deltoid Prevnar 13 in 2019 - right deltoid Pneumovax in 2015 Flu vaccine in 2015 Right subclavian Port in 2015 Flu vaccine in 2014 Flu in 2013 COLONOSCOPY in 2007 Appendectomy in 2002 Hysterectomy in 2002 - WITH BSO PORT PLACEMENT in 2002 Tubal ligation in 1991 Tonsillectomy in 1964 Allergies: Carboplatin Medications: Duragesic-100 1 Patch(es) (of 100 mcg) Patch 72 Hr Transdermal q 3 days Enalapril Maleate 1 (10 mg) Tablet Oral b.i.d. Levothroid 1 (50 mcg) Tablet Oral daily Lyrica 1 Capsule (of 150 mg) Oral t.i.d. MiraLax Pack Oral daily PRN Morphine Sulfate (30 mg) Tablet Oral Take as Directed Protonix 1 Tablet Tablet, enteric coated Oral daily Proventil HFA Aerosol, solution Inhalation PRN Senna 1 Tablet (of 8.6 mg) Capsule Oral b.i.d. TRAZADONE 1 (150 mg) Tablet Oral at bedtime Venlafaxine HCl 1 (150 mg) Capsule SR 24 HR Oral daily Xarelto 1 Tablet (of 10 mg) Oral daily Zofran 1 Tablet (of 4 mg) Oral q 4 hours PRN Family History: Ms. Carrasco's mother at age 59: cancer history consists of Breast cancer at age 28 while other medical history includes KS at age 57 (cause of ). Ms. Carrasco's father is alive. Ms. Carrasco does not know if her maternal grandmother is alive. She does not know if her maternal grandfather is alive. Ms. Carrasco has 1 brother who is alive. Social History: Ms. Carrasco is and she is an on disability. Ms. Carrasco quit smoking less than one year ago but had smoked 0.5 packs/day for 32 years. She is a former drinker. She has indicated exposure to the following products: cigarettes. Ms. Carrasco reports the following support systems: lives with spouse, significant other, family, or friends, lives in own house, supportive family/friends willing to assist with needs, and adequate transportation available for expected visits. Her diet consists of regular meals. She indicates her activity level as: daily activities. she smokes 5 cigaretter per day and has an e cigarette. Physical Examination: Performed on Jan 06, 2022 12:37: Height - 67.00 in, Weight - 96.6 lbs (LOW), BSA - 1.48 sq.m, BMI - 15.13 (LOW), Temperature - 97.8 F (LOW), Pulse - 93 /min, Respiration - 18 /min, BP - 105/70 mm(hg), O2 Sat - 99 %, Pain - 6, and Fatigue - 8. Performance Status: 2 - Ambulatory/capable of all self-care, unable to perform any work activities. Up and about more than 50% of waking hours. (ECOG) Constitutional Alert, cooperative, oriented. Mood and affect appropriate. Appears close to chronological age. Well nourished. Well developed. Respiratory Lungs are clear to auscultation without rhonchi or wheezing. Cardiovascular Regular rate and rhythm of heart without murmurs, gallops or rubs. Abdomen Tenderness lower abdomen and pelvic area Musculoskeletal No tenderness or swelling, normal range of motion without obvious weakness. Psychiatric Alert and oriented times three. Coherent speech. Verbalizes understanding of our discussions today. Laboratory: Test performed on Nov 04, 2021 12:10 Sodium 129 mmol/L Potassium 4.2 mmol/L Chloride 90 mmol/L CO2 26 mmol/L Anion Gap 17.2 BUN 10 mg/dL Creatinine 0.6 mg/dL Cr Clearance (Est) 67.3500 mL/min eGFR 101.0 mL/min Glucose 80 mg/dL Osmolality - Calculated 266 mOsm/kg Calcium 8.5 mg/dL Protein, Total 6.9 g/dL Albumin 3.3 g/dL Globulin 3.6 g/dL Bilirubin, Total 0.6 mg/dL ALT (SGPT) 11 U/L AST (SGOT) 17 U/L Alkaline Phosphatase 90 IU/L WBC 6.3 10 3/uL RBC 3.72 10 6/uL HGB 11.5 g/dL HCT 36.0 % MCV 96.8 fl MCH 30.9 pg MCHC 31.9 g/dL RDW 14.1 % Platelet Count 142 10 3/cmm MPV 10.7 fL Neutrophils 4.07 10 3/uL Lymphocytes 1.3 10 3/uL Monocytes 0.7 10 3/uL Eosinophils 0.1 10 3/uL Basophils 0.0 10 3/uL Neutrophil % 64.5 % Lymphocyte % 20.9 % Monocyte % 11.3 % Eosinophil % 2.2 % Basophils % 0.6 % NRBC % 0 % CA-125 46.3 U/mL Test performed on Jul 21, 2021 15:59 Magnesium 1.5 mg/dL Phosphorous 2.6 mg/dL Test performed on Jul 20, 2021 15:57 NRBCs 0 /100 WBC Test performed on Jul 17, 2021 15:51 CK, Total 36 International Units/L Folate 11 ng/mL Vitamin B12 865 pg/mL Test performed on Jul 15, 2021 15:36 Manual Lymphocytes 14.5 % Manual Monocytes 8.3 % Manual Eosinophils 0.6 % Manual Basophils 0.2 % Test performed on Jul 14, 2021 15:26 TSH 3rd Generation 5.830 million units/mL PT 13.4 sec Ua Color yellow INR 1.0 Ua Appearance cloudy Ua Specific Apex 1.049 Ua pH 5 Ua Protein 100 Ua Glucose negative Ua Ketones 5 Ua Blood Large Ua Leuk Esterase Negative Ua Nitrites Negative Ua Bilirubin Negative Ua Urobilinogen Negative Platelet Estimate adequate U Micro: WBC >30 U Micro: RBC >30 U Micro: Bacteria Trace U Micro: Epithelial Cells Moderate U Micro: Mucus Present Impression: 1. Recurrent ovarian cancer. By next generation sequencing her tumor was noted to harbor a BRCA1 mutation, presumed somatic, as her original testing for germline BRCA was negative. Her tumor also was tested and found to be MSI stable with intact mismatch repair proteins. 2. Hypertension. 3. Hyperlipidemia. 4. GERD. 5. COPD with recurrent episodes of pneumonia. 6. Degenerative disease of the spine with chronic back pain. 7. Chronic anxiety/depression. Plan: Patient with recurrent ovarian cancer. She had optimal debulking following initial diagnosis in May 2003, and she received adjuvant chemotherapy with 6 cycles of carboplatin/paclitaxel. She had further treatment with 4 cycles of carboplatin/paclitaxel in combination with Avastin following documented recurrence in July 2008. She had restarted chemotherapy with carboplatin/gemcitabine in February 2013 following a surgical debulking procedure for disease progression with associated bowel obstruction. Her treatment was subsequently modified to single agent gemcitabine as a result of a hypersensitivity reaction to carboplatin. She had some response to the chemotherapy. As of January 2014 her disease was felt to be stable, and she was then observed off treatment. In May 2015 she restarted chemotherapy with weekly paclitaxel. Following her cycle 18 treatment on 09/17/2016 she had another hospital admission for pneumonia. As her disease had been stable and her performance status had been declining, her chemotherapy at that point was put on hold. During followup she had further evaluation by next generation sequencing, and her tumor was noted to harbor a BRCA1 mutation. It was presumed to be somatic, as her original testing for germline BRCA was negative. Her tumor also was tested and found to be MSI stable with intact mismatch repair proteins. In November 2019 she had evidence of disease progression with CT evidence of right pelvic mass with ureteral obstruction and hydronephrosis, requiring placement of right ureteral stent. In December 2019 she began a trial of therapy with olaparib, initially at 300 mg twice daily. She did show a very good response by follow-up CT scan and by CA-125 level, but she subsequently did require a dose reduction to 200 mg twice daily. In June she had a hospital admission for pneumonia/acute respiratory failure. Blood cultures were positive for Enterococcus and for yeast. She underwent removal of her Port-A-Cath venous access device. She did recover, but during subsequent follow-up she had 3 further hospital admissions for small bowel obstruction, all managed conservatively. She was seen for follow-up on 07/30/2021, and with limited treatment options available, she opted to restart olaparib at 300 mg twice daily. She has since then continued to have very marginal performance status. She has had ongoing issues with abdominal pain as well as chronic neuropathy pain, management of which has been problematic due to potential opiate associated side effects, including constipation and respiratory depression. During subsequent follow-up she had multiple hospitalizations for recurrent nausea/vomiting. On 10/09/2021 she was admitted again with her CT showing evidence of high-grade small bowel obstruction. This was also confirmed on a subsequent upper GI/small bowel follow-through. Lacking any other treatment options, she underwent exploratory laparotomy on 10/17/2021. There was evidence of small bowel obstruction at the site of the retroperitoneal mass. She did not, however, have peritoneal carcinomatosis. The procedure was limited to extensive adhesiolysis and placement of palliative side to side ileocolic bypass. She was able to be discharged home on 10/23/2021. Initially she was feeling better, but as of her follow-up visit on 11/04/2021 she was having more abdominal pain, constipation, and difficulty eating. She has since then felt a little better, but she continues to complain of abdominal pain and gas, and she still has limited oral intake and marginal performance status. Her overall condition and prognosis remain poor, but for now she continues symptomatic management, she was started on Amitiza but it caused nausea and vomiting so she discontinued. Patient would like to start on another treatment. So we will consider rucaparib 600 mg twice daily. It has some of the same side effects that Lynparza has so it is not certain if she will be up to tolerate this medication. Patient is aware of this but would like to move forward with treatment. She will return to the clinic when she has received the medication for education. Signed By: Viridiana Falcon N.P. <<Signature on File>>
== END 2022-01-06 10:55 | disposition home or self-care (01) ==
PROVIDERS: Nurse Practitioner Family; Visit Provider Internal Medicine Medical Oncology
DX: C56.1 Malignant neoplasm of right ovary (principal); K21.9 Gastro-esophageal reflux disease without esophagitis; J44.9 Chronic obstructive pulmonary disease, unspecified; F41.9 Anxiety disorder, unspecified; F32.A Depression, unspecified; Z79.899 Other long term (current) drug therapy; Z87.891 Personal history of nicotine dependence; E78.00 Pure hypercholesterolemia, unspecified
CPT/HCPCS: 36415; 80053; 85025; 86304; 99214

== ENCOUNTER 2022-02-02 08:54 | Outpatient (CLI) | payer MEDICARE, OTHER, SELFPAY ==
[2022-02-02] MEDS: sodium chloride 0.9% 1,000 ML 999 ML IV (10:40)
[2022-02-02 10:47] LABS: Basophils % 0.4 %; Eosinophils % 0.5 %; Hematocrit 26.8 % (37.0-47.0); Hemoglobin 8.1 g/dL (11.5-15.3); Lymphocytes # 1.1 10^3/uL (0.8-4.8); Lymphocytes % 15.1 %; Mean Corpuscular HGB Conc 30.2 g/dL (30.0-36.0); Mean Corpuscular Hemoglobin 27.1 pg (28.0-34.0); Mean Corpuscular Volume 89.6 fl (81-99); Mean Platelet Volume 9.6 fL (7.4-10.4); Monocytes # 0.7 10^3/uL (0.2-0.9); Monocytes % 9.3 %; Neutrophils % 74.4 %; Nucleated Red Blood Cells % 0 %; Platelet Count 201 10^3/cmm (130-400); Red Blood Count 2.99 10^6/uL (4.1-5.3); Red Cell Distribution Width 16.4 % (12.1-15.1); White Blood Count 7.4 10^3/uL (4.0-10.0)
[2022-02-02 11:15] LABS: Alanine Aminotransferase 7 U/L (0-33); Albumin Level 2.4 g/dL (3.5-5.2); Alkaline Phosphatase 88 IU/L (35-105); Anion Gap 9.8 (5-19); Aspartate Amino Transferase 12 U/L (0-32); Blood Urea Nitrogen 14 mg/dL (8-23); CA 125 22.6 U/mL (0-35); Calcium 8.3 mg/dL (8.5-10.5); Carbon Dioxide 30 mmol/L (22-29); Chloride 95 mmol/L (98-107); Ferritin 269 ng/mL (15-150); Globulin 3.9 g/dL (1.3-4.6); Glucose 76 mg/dL (65-115); Iron 12 ug/dL (37-145); Osmolality Calculated 271 mOsm/kg (285-295); Percent Saturation 12.6 % (20-50); Potassium 3.8 mmol/L (3.5-5.1); Sodium 131 mmol/L (136-145); Total Bilirubin 0.3 mg/dL (0.15-1.2); Total Iron Binding Capacity 95 mcg/dl; Total Protein 6.3 g/dL (6.6-8.7); Unsaturated Iron Binding 83 ug/dL (112-347)
--- NOTE | 2022-02-08 22:00 | ONC FU_ITS ---
Viridiana Falcon Progress Note Patient: Romelia Carrasco V Unit #: [id number]: [id number] Dicatated By: Viridiana Falcon N.P.Date of Visit:Feb 02, 2022 Onc MED Follow-up/Prog Note Chief Complaint: Ovarian cancer History of Present Illness: This is a 61 year-old woman with recurrent ovarian cancer. She had optimal resection with her initial surgery back in May 2003. She had documented recurrence in July 2008, nearly 5 years after completion of adjuvant chemotherapy with 6 cycles of carboplatin/Taxol. She was retreated at that time with carboplatin/Taxol chemotherapy, but in combination with Avastin. Treatment was stopped after 4 cycles because of worsening neuropathy, but she did have a very good clinical response with normalization of the CA-125 level. She was then followed on observation. She did well until July 2012 when she presented with small bowel obstruction. Her Ca-125 level at that point had not increased and the obstruction initially did improve with conservative management. Ultimately, though, she was confirmed to have disease recurrence in the abdomen. She underwent surgery at [facility] in October 2012. At laparotomy there were extensive adhesions in the abdomen, but there was recurrent tumor in the right mid abdomen and right upper quadrant. It was involving the cecum, the mesocolon, and the small bowel mesentery in a multiple twisted mass. There also was periaortic juanita involvement. She underwent right hemicolectomy and primary anastamosis of the bowel with complete resection of the mass. 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 She had gradual recovery from that procedure. In February 2013 she restarted chemotherapy with carboplatin in combination with gemcitabine. She experienced a significant hypersensitivity reaction to the carboplatin with the third cycle of treatment. She then continued chemotherapy with single agent gemcitabine. She experienced significant fatigue and myelosuppression with gemcitabine, even at a reduced dose level. She did not tolerate an attempt at dose escalation. She had some ongoing GI symptoms during this time, but no documented disease progression. She had a followup visit with Dr. David in January 2014. Her disease at that time appeared stable, and it was recommended that she stop chemotherapy again and just go back on observation. By May 2015 she was having significantly more abdominal pain and repeat CT abdomen/pelvis at that point was highly suspicious for recurrent metastatic disease at the site of the ileocolic anastomosis. That study showed no obvious metastatic involvement in the liver and no ascites. In June 2015 she restarted chemotherapy with weekly paclitaxel. She initially was tolerating it pretty well on a day 1/day 8 schedule every 3 weeks. She had presented at day 15 of her third cycle with severe abdominal pain and nausea. Repeat CT scan showed increasing soft tissue at the ileocolic anastomosis. There was a large amount of fecal material proximal to that site, and an area of stenosis was suspected. She did improve, though, with conservative management, and she subsequently was able to continue chemotherapy with weekly paclitaxel. As of November 2015 she had completed 7 cycles of treatment. Her chemotherapy was put on hold after her cycle 8 day 1 treatment due to diarrhea and increased abdominal pain. Abdominal x-rays showed just nonspecific gas pattern in the left abdomen. She had restaging CT abdomen/pelvis again on 01/13/2016. It showed no obstruction and no evidence of disease progression. There was no lymphadenopathy or ascites noted. Her symptoms had subsequently improved, and she did then proceed with her 9th cycle of chemotherapy. Beginning with cycle 10, I did have her change to a day 1/day 15 schedule. She had subsequently tolerated it much better. As of her follow-up visit on 08/06/2016, she appeared stable clinically, and at that point she continued with her 16th cycle of treatment. Her day 15 treatment with that cycle was not administered. She continued treatment with cycle 18 day 1 on 10/01/2016. On 10/06/2016 she was admitted to the hospital with pneumonia. CT pulmonary angiogram at that time showed no evidence of pulmonary emboli. There were widespread tree-in-bud pulmonary parenchymal nodularities and there was evidence of underlying chronic emphysema. There was new hilar or mediastinal lymphadenopathy noted, possibly reactive or neoplastic. Also noted was a superior segment left lower lobe pulmonary nodule measuring 8.4 mm. She did improve on antibiotic therapy, and she was discharged home on 10/10/2016. She had quit smoking just prior to the hospitalization. She did not receive day 15 treatment with that cycle. During subsequent follow-up, I opted to keep her chemotherapy on hold, as her disease had been very stable. Restaging CT scans of the chest, abdomen, and pelvis on 04/28/2017 showed resolved hilar and mediastinal adenopathy and resolved left lower lobe pulmonary nodule. There was stable appearance of the ileocolic anastomosis. There was no evidence of disease progression. Restaging CT scans of the chest, abdomen, and pelvis on 11/16/2018 showed unchanged medial middle lobe parenchymal opacity measuring 8-9 mm. Lingular and anterior left lower lobe subsegmental atelectasis and/or scarring also appeared unchanged. There was no evidence of disease progression in the chest, abdomen, or pelvis. In February 2019 she had presented with new onset of swelling in the right leg. Venous Doppler of the right leg on 03/09/2019 showed partially occlusive deep vein thrombosis of the superficial femoral vein with thrombus noted to extend into the greater saphenous vein. She began on anticoagulation with apixaban. Restaging CT scans on 03/22/2019 showed stable 8-9 mm pulmonary nodule in the right middle lobe. Right hilar and infrahilar hilar lymph nodes also appeared stable. Moderate right hydronephrosis with right ureterectasis appeared to be new. Slightly prominent right inguinal lymph nodes appeared unchanged. Overall, there was no evidence of disease progression in the chest, abdomen, or pelvis. She continued on observation/expectant management. Her other medical illnesses include hypertension, hypercholesterolemia and gastroesophageal reflux disease. She also has chronic obstructive pulmonary disease and she had a pretty severe episode of pneumonia in December 2008. She had stopped smoking following her hospitalization in September. 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 Other surgeries have been limited to tonsillectomy and tubal ligation. INTERIM HISTORY: In April 2019 a next generation sequencing study was performed on the specimen from her surgical resection in October 2012. It showed presence of a BRCA1 mutation, presumed to be somatic, as her original germline BRCA testing was negative. There were no other actionable mutations identified. Repeat CT abdomen/pelvis on 06/22/2019 showed enlarging soft tissue mass in the right side of the pelvis measuring 3.5 cm. This was noted to be in the area of surgical clips from her prior hysterectomy, and the appearance was felt to be consistent with local recurrence or metastatic adenopathy. The mass was noted to be adjacent to and possibly invading the psoas muscle. There was increasing hydronephrosis of the right kidney. She was referred to Dr. David. On 07/18/2019 she underwent exploratory laparotomy with extensive adhesive lysis and extensive retroperitoneal exploration and debulking of right pelvic/psoas muscle tumor. The tumor was noted to obstruct the right ureter, and the procedure included placement of a right ureteral stent. Pathology showed high-grade carcinoma which was PAX-8 and WT-1 positive. During follow-up she had ongoing problems with urinary tract infection and she continued to have significant pain in the right groin area and lower abdomen. Her repeat CT abdomen/pelvis on 12/12/2019 showed progression of a right pelvic mass compared to the June 2019 study. At that point it measured 5.8 x 3.8 x 6.5 cm and it was noted to encase the right ureter. It was inseparable from the distal small bowel loops and it was noted to abut the right L5-S1 disc space. There was interval placement of right ureteral stent with resolution of right hydronephrosis. With those findings and with the known BRCA mutation, she began a trial of therapy with olaparib 300 mg bid on 12/18/2019. As of her follow-up visit on 02/21/2020 she was still having significant pain in the right lower quadrant area and she also was reporting increased nausea and fatigue. There had been a significant decline in her CA 125 level. I had suspected that at least some of her symptoms were treatment related. She continued the olaparib, but with the dosage reduced to 200 mg twice daily. Subsequent to that visit she had 2 hospitalizations at [facility] in [place], only by 4 or 5 days. On both occasions she had bowel obstruction which was relieved with conservative management. I had seen her for a follow-up visit on 03/21/2020. She was beginning to feel better. There was further decline in the CA 125 level to 6.7 U/mL compared to 32.8 U/mL on 12/26/2019. Restaging CT of the abdomen/pelvis on 05/22/2020 showed resolution of the previously described right lower quadrant pelvic mass. A right double-J ureteral stent was noted to be in place. There was right renal cortical atrophy. There was no hydronephrosis. There was no adenopathy noted in the abdomen or pelvis. There was moderate constipation. She continued the olaparib at 200 mg [address] CT scans on 11/07/2020 showed new subsegmental atelectasis in the lingula and left lower lobe, but no change in an 8 mm right middle lobe pulmonary nodule or and a 9 mm right hilar lymph node. There was possible tumor recurrence noted in the right pelvis with a slightly lobulated soft tissue nodule measuring 2.4 cm adjacent to the ureteral stent and with possible invasion into the right psoas muscle. There were no other findings suspicious for disease progression. She continued treatment with olaparib 200 mg twice daily. On 12/10/2000 she was seen in the emergency room with abdominal pain. Her CT abdomen/pelvis showed interval moderate dilatation of multiple small bowel loops and prominent fluid distention of the stomach suggesting possible small bowel obstruction, though no obvious transition zone was evident. There was continued atrophy of the right kidney but interval worsening of mild right hydronephrosis. There was good positioning of the right ureteral stent. She then continued her treatment with olaparib. As of her follow-up visit in February 2021 she agreed to try increasing the dosage back up to 300 mg twice daily. At her follow-up visit in March, she was tolerating it with acceptable toxicity, and she continued the same treatment. On 06/29/2021 she was admitted to the hospital with pneumonia and acute hypoxic respiratory failure. At that time she had CT evidence of small bowel obstruction. She also had evidence of acute renal failure. Her blood cultures were positive for Enterococcus faecium vre and for yeast. She underwent removal of her Port-A-Cath venous access device. She did show recovery and she was discharged home on antibiotic coverage with Augmentin and linezolid, and she also continued treatment with fluconazole. On 07/13/2021 she presented to the emergency room with decreased mental status. Her CT abdomen/pelvis showed dilated small bowel suspicious for obstruction. She was transferred to [facility] admission. She was managed conservatively. On 07/29/2021 she was again admitted to the hospital with CT abdomen/pelvis showing multiple dilated small bowel loops consistent with small bowel obstruction. She improved with conservative treatment measures. She was seen for follow-up on August 05, 2021. At that point she continued to have relatively poor performance status, but she had been able to keep her bowels moving with a combination of MiraLAX, senna, and lactulose. With limited treatment options available, she opted to restart olaparib 300 mg twice daily. During subsequent follow-up she had further hospital admissions for nausea/vomiting on 09/07/2021 and on 10/05/2021. She was then admitted again on 10/09/2021. Her CT abdomen/pelvis at that time showed progressive small bowel dilatation and high-grade obstruction. Confluent loops of small bowel were noted near the umbilicus and the surgical anastomosis was felt to be the possible site of obstruction. An upper GI/small bowel follow-through was also consistent with small bowel obstruction. Lacking any other treatment options, she underwent exploratory laparotomy on 10/17/2021. Multiple small bowel loops were noted to be densely adherent to the abdominal wall along the laparotomy scar, for which she underwent a lengthy adhesiolysis procedure. At that point multiple loops of small bowel were noted to be adherent to the mass palpable in the retroperitoneum and the procedure was then limited to placement of a staple side to side ileocolic bypass. The procedure was complicated by iatrogenic cystotomy, which was repaired. She did not have evidence, though, of peritoneal carcinomatosis. She had a fairly uneventful postoperative recovery, and she was able to be discharged home on 10/23/2021. She initially felt much better, but as of her follow-up visit on 11/04/2021 she was again having significant abdominal pain, constipation, and difficulty eating. Patient presents today accompanied by her for education on Rubraca. She appears very weak and complains of extreme fatigue. Her appetite is poor secondary to severe nausea on a daily basis. She denies fever, chills, night sweats. No sinus drainage or mouth sores. No shortness of breath, cough, chest pain. She continues to have lower abdominal pain and cramping that radiates down her legs. She is currently on a fentanyl patch and immediate release morphine for breakthrough pain. She denies joint or bone pain. She is very weak. She denies headaches. She has some dizziness when she first stands up. She has not been on treatment for the past month due to intolerance to Lynparza. She feels like her cancer is getting worse. Review Of Symptoms: See above. Past Medical History: Chronic back pain (secondary to ruptured discs) Depression Peripheral neuropathy in 2008 Hypothyroidism in 2008 Chronic obstructive pulmonary disease in 2006 Anxiety in 2002 Coronary artery disease in 2002 Hypercholesterolemia in 2002 Hypertension in 2002 Gastroesophageal reflux disease in 2002 Past Surgical History: Stent placement in the ureter Covid vaccine #1 in 2020 Flu vaccine in 2019 Flu vaccine in 2018 - left deltoid Prevnar 13 in 2019 - right deltoid Pneumovax in 2015 Flu vaccine in 2015 Right subclavian Port in 2015 Flu vaccine in 2014 Flu in 2013 COLONOSCOPY in 2007 Appendectomy in 2002 Hysterectomy in 2002 - WITH BSO PORT PLACEMENT in 2002 Tubal ligation in 1991 Tonsillectomy in 1964 Allergies: Carboplatin Medications: Duragesic-100 1 Patch(es) (of 100 mcg) Patch 72 Hr Transdermal q 3 days Enalapril Maleate 1 (10 mg) Tablet Oral b.i.d. Levothroid 1 (50 mcg) Tablet Oral daily Lyrica 1 Capsule (of 150 mg) Oral t.i.d. MiraLax Pack Oral daily PRN Morphine Sulfate (30 mg) Tablet Oral Take as Directed Protonix 1 Tablet Tablet, enteric coated Oral daily Proventil HFA Aerosol, solution Inhalation PRN Senna 1 Tablet (of 8.6 mg) Capsule Oral b.i.d. TRAZADONE 1 (150 mg) Tablet Oral at bedtime Venlafaxine HCl 1 (150 mg) Capsule SR 24 HR Oral daily Xarelto 1 Tablet (of 10 mg) Oral daily Zofran 1 Tablet (of 4 mg) Oral q 4 hours PRN Family History: Ms. Carrasco's mother at age 59: cancer history consists of Breast cancer at age 28 while other medical history includes MO at age 57 (cause of ). Ms. Carrasco's father is alive. Ms. Carrasco does not know if her maternal grandmother is alive. She does not know if her maternal grandfather is alive. Ms. Carrasco has 1 brother who is alive. Social History: Ms. Carrasco is and she is an on disability. She is an occasional smoker who has smoked 0.5 packs/day for 32 years. She is a former drinker. She has indicated exposure to the following products: cigarettes. Ms. Carrasco reports the following support systems: lives with spouse, significant other, family, or friends, lives in own house, supportive family/friends willing to assist with needs, and adequate transportation available for expected visits. Her diet consists of regular meals. She indicates her activity level as: daily activities. she smokes 5 cigaretter per day and has an e cigarette. Physical Examination: Performed on Feb 02, 2022 10:06: Height - 67.00 in, Weight - 98.4 lbs (HIGH), BSA - 1.50 sq.m, BMI - 15.41 (LOW), Temperature - 98.0 F (LOW), Pulse - 82 /min, Respiration - 16 /min, BP - 90/60 mm(hg), O2 Sat - 99 %, Pain - 6, and Fatigue - 9. Performance Status: 2 - Ambulatory/capable of all self-care, unable to perform any work activities. Up and about more than 50% of waking hours. (ECOG) Constitutional Alert, cooperative, oriented. Appears chronically ill. Respiratory Lungs are clear to auscultation without rhonchi or wheezing. Cardiovascular Regular rate and rhythm of heart without murmurs, gallops or rubs. Abdomen Mild distention noted. Bowel sounds positive Extremities No visible deformities, no cyanosis, clubbing or edema. Pulses 3+ and equal bilaterally. Musculoskeletal Generalized weakness Psychiatric Alert and oriented times three. Coherent speech. Verbalizes understanding of our discussions today. Laboratory: Test performed on Nov 04, 2021 12:10 Sodium 129 mmol/L Potassium 4.2 mmol/L Chloride 90 mmol/L CO2 26 mmol/L Anion Gap 17.2 BUN 10 mg/dL Creatinine 0.6 mg/dL Cr Clearance (Est) 67.3500 mL/min eGFR 101.0 mL/min Glucose 80 mg/dL Osmolality - Calculated 266 mOsm/kg Calcium 8.5 mg/dL Protein, Total 6.9 g/dL Albumin 3.3 g/dL Globulin 3.6 g/dL Bilirubin, Total 0.6 mg/dL ALT (SGPT) 11 U/L AST (SGOT) 17 U/L Alkaline Phosphatase 90 IU/L WBC 6.3 10 3/uL RBC 3.72 10 6/uL HGB 11.5 g/dL HCT 36.0 % MCV 96.8 fl MCH 30.9 pg MCHC 31.9 g/dL RDW 14.1 % Platelet Count 142 10 3/cmm MPV 10.7 fL Neutrophils 4.07 10 3/uL Lymphocytes 1.3 10 3/uL Monocytes 0.7 10 3/uL Eosinophils 0.1 10 3/uL Basophils 0.0 10 3/uL Neutrophil % 64.5 % Lymphocyte % 20.9 % Monocyte % 11.3 % Eosinophil % 2.2 % Basophils % 0.6 % NRBC % 0 % CA-125 46.3 U/mL Impression: 1. Recurrent ovarian cancer. By next generation sequencing her tumor was noted to harbor a BRCA1 mutation, presumed somatic, as her original testing for germline BRCA was negative. Her tumor also was tested and found to be MSI stable with intact mismatch repair proteins. 2. Hypertension. 3. Hyperlipidemia. 4. GERD. 5. COPD with recurrent episodes of pneumonia. 6. Degenerative disease of the spine with chronic back pain. 7. Chronic anxiety/depression. Plan: Patient with recurrent ovarian cancer. She had optimal debulking following initial diagnosis in May 2003, and she received adjuvant chemotherapy with 6 cycles of carboplatin/paclitaxel. She had further treatment with 4 cycles of carboplatin/paclitaxel in combination with Avastin following documented recurrence in July 2008. She had restarted chemotherapy with carboplatin/gemcitabine in February 2013 following a surgical debulking procedure for disease progression with associated bowel obstruction. Her treatment was subsequently modified to single agent gemcitabine as a result of a hypersensitivity reaction to carboplatin. She had some response to the chemotherapy. As of January 2014 her disease was felt to be stable, and she was then observed off treatment. In May 2015 she restarted chemotherapy with weekly paclitaxel. Following her cycle 18 treatment on 09/17/2016 she had another hospital admission for pneumonia. As her disease had been stable and her performance status had been declining, her chemotherapy at that point was put on hold. During followup she had further evaluation by next generation sequencing, and her tumor was noted to harbor a BRCA1 mutation. It was presumed to be somatic, as her original testing for germline BRCA was negative. Her tumor also was tested and found to be MSI stable with intact mismatch repair proteins. In November 2019 she had evidence of disease progression with CT evidence of right pelvic mass with ureteral obstruction and hydronephrosis, requiring placement of right ureteral stent. In December 2019 she began a trial of therapy with olaparib, initially at 300 mg twice daily. She did show a very good response by follow-up CT scan and by CA-125 level, but she subsequently did require a dose reduction to 200 mg twice daily. In June she had a hospital admission for pneumonia/acute respiratory failure. Blood cultures were positive for Enterococcus and for yeast. She underwent removal of her Port-A-Cath venous access device. She did recover, but during subsequent follow-up she had 3 further hospital admissions for small bowel obstruction, all managed conservatively. She was seen for follow-up on 07/30/2021, and with limited treatment options available, she opted to restart olaparib at 300 mg twice daily. She has since then continued to have very marginal performance status. She has had ongoing issues with abdominal pain as well as chronic neuropathy pain, management of which has been problematic due to potential opiate associated side effects, including constipation and respiratory depression. During subsequent follow-up she had multiple hospitalizations for recurrent nausea/vomiting. On 10/09/2021 she was admitted again with her CT showing evidence of high-grade small bowel obstruction. This was also confirmed on a subsequent upper GI/small bowel follow-through. Lacking any other treatment options, she underwent exploratory laparotomy on 10/17/2021. There was evidence of small bowel obstruction at the site of the retroperitoneal mass. She did not, however, have peritoneal carcinomatosis. The procedure was limited to extensive adhesiolysis and placement of palliative side to side ileocolic bypass. She was able to be discharged home on 10/23/2021. Initially she was feeling better, but as of her follow-up visit on 11/04/2021 she was having more abdominal pain, constipation, and difficulty eating. She has since then felt a little better, but she continues to complain of abdominal pain and gas, and she still has limited oral intake and marginal performance status. Her overall condition and prognosis remain poor, but for now she continues symptomatic management, she was started on Amitiza but it caused nausea and vomiting so she discontinued. Education was provided on Rubraca. Handouts were provided. Rubraca has some of the same side effects as Lynparza and patient was not able to tolerate the side effects of Lynparza. She is aware of this but would like to attempt Rubraca 600 mg p.o. twice daily. She is experiencing increased pain and some mild abdominal distention. We will obtain a CT scan of the abdomen pelvis to reevaluate. We will obtain labs today with CBC CMP, Ca125, and iron studies. She will return to the clinic in 1 week with CBC and CMP. Signed By: Viridiana Falcon N.P. <<Signature on File>>
== END 2022-02-02 08:55 | disposition home or self-care (01) ==
PROVIDERS: Visit Provider Nurse Practitioner Family
DX: C56.1 Malignant neoplasm of right ovary (principal); C78.5 Secondary malignant neoplasm of large intestine and rectum
CPT/HCPCS: 80053; 82728; 83540; 83550; 85025; 86304; 96360; 99215; J7030

== ENCOUNTER 2022-02-06 09:19 | Outpatient (CLI) | payer MEDICARE, OTHER, SELFPAY ==
--- NOTE | 2022-02-06 09:51 | CT_ITS ---
WS: [id number] CT ABDOMEN AND PELVIS WITH CONTRAST HISTORY: RE EVALUATION OF OVARIAN CANCER TECHNIQUE: Imaging performed of the abdomen and pelvis with IV contrast. Single phase imaging of the abdomen. Coronal and sagittal reformats are submitted. All CT scans at [facility] use at [facility] [address] one of these dose optimization techniques: automated exposure control; mA and/or kV adjustment per patient size (includes targeted exams where dose is matched to clinical indication); or iterative re construction. IV CONTRAST: Omnipaque 350; 95 mL IV. Oral contrast: Yes. DLP: 643.24 mGy.cm COMPARISON: 10/13/2021 Lower thorax: Lung bases are clear. Heart is normal size. No hiatal hernia. Liver/biliary system: Normal size with no intrahepatic dilatation. Normal enhancement of the portal v ein. Gallbladder: Mildly distended gallbladder. Similar to the prior examination. No pericholecystic fluid . Common bile duct is normal size. Pancreas: Marked atrophy of the pancreas. Spleen: Normal size spleen. No mass or infarct. Adrenal glands: Normal. Right kidney: Severe hydronephrosis. Marked thinning of the cortex and atrophy of the kidney. The pig tail catheter coiled within the large extrarenal pelvis. The distal pigtail is cold in the urinary bl adder. Despite the catheter there is continued obstruction and hydronephrosis. Left kidney: There is scattered hypodensities which are much too small to characterize. No obstructio n. Aorta: Extensive atherosclerotic plaque. There is intimal thickening and plaque. The proximal SMA and celiac axis are normally enhancing. Lymphadenopathy: No increase in size of lymph nodes in the upper mesentery. Again noted is cyst large lobulated soft tissue mass in the RIGHT retroperitoneum obstructing the ureter. This mass is insepar able from the psoas muscle and distorting and displacing the GI tract in the RIGHT lower quadrant. Th ere are a few small areas of air within this collection which may be entrapped GI tract. The margins are difficult to identified due to its infiltrative nature. There is probably extension into portion of the GI tract. Abnormal soft tissue extends into the RIGHT adnexa. Largest component of the mass me asures 4.8 x 3.9 cm. The mass has increased in size and extent since 10/13/2021. There are small bila teral inguinal lymph nodes greater on the RIGHT. RIGHT inguinal lymph node has increased in size now measuring 13 mm in short axis diameter. Additional distal RIGHT iliac lymph node. Free fluid: Edema and anasarca and presacral soft tissue thickening. There is small amount of free fl uid in the pelvis on the RIGHT. GI tract: Stomach is well distended. No small bowel obstruction. The colon is tortuous and overlappin g. Abdominal wall: Soft tissue anasarca. Pelvis: RIGHT ureteral pigtail: The urinary bladder. There is presacral soft tissue thickening. Bones: Bilateral femoral head osteonecrosis. No metastatic lesions noted within the bones. CT/CT abdomen pelvis w con* [id number] IMPRESSION: 1. Increase in size of the infiltrative lobulated soft tissue mass in the RIGH T retroperitoneum invading the psoas muscle and obstructing the ureter. This ma ss now also is displacing the adjacent small bowel and colon. I suspect there i s probably invasion into the GI tract. Mass is difficult to separate from the c olon and distal small bowel. No obstruction at this time. Neoplastic mass has i ncreased in size with the major component now made measuring 4.8 x 3.9 cm. 2. Slight increase in size of the RIGHT inguinal and distal RIGHT iliac lymph node. 3. Soft tissue anasarca. 4. Double pigtail RIGHT ureteral stent remains in good position. Chronic hydro nephrosis and cortical thinning RIGHT kidney is unchanged.
[2022-02-06] MEDS: iohexol 350 mg/mL 100 mL Btl IV (10:45)
[2022-02-06] MEDS: iohexol 300 mg/mL 50 mL Btl PO (10:45)
== END 2022-02-06 09:20 | disposition home or self-care (01) ==
LOC: RAD 09:22
PROVIDERS: Visit Provider Internal Medicine Medical Oncology
DX: C80.1 Malignant (primary) neoplasm, unspecified (principal)
CPT/HCPCS: 74177

== ENCOUNTER 2022-02-09 09:14 | Outpatient (CLI) | payer MEDICARE, OTHER, SELFPAY ==
[2022-02-09 09:48] LABS: Basophils % 0.4 %; Eosinophils # 0.1 10^3/uL (0.0-0.8); Eosinophils % 0.9 %; Hematocrit 32.5 % (37.0-47.0); Hemoglobin 9.7 g/dL (11.5-15.3); Lymphocytes # 1.2 10^3/uL (0.8-4.8); Lymphocytes % 12.6 %; Mean Corpuscular HGB Conc 29.8 g/dL (30.0-36.0); Mean Corpuscular Hemoglobin 27.1 pg (28.0-34.0); Mean Corpuscular Volume 90.8 fl (81-99); Mean Platelet Volume 9.4 fL (7.4-10.4); Monocytes # 0.5 10^3/uL (0.2-0.9); Monocytes % 5.6 %; Neutrophils # 7.36 10^3/uL (1.8-7.7); Neutrophils % 80.3 %; Nucleated Red Blood Cells % 0 %; Platelet Count 219 10^3/cmm (130-400); Red Blood Count 3.58 10^6/uL (4.1-5.3); Red Cell Distribution Width 16.6 % (12.1-15.1); White Blood Count 9.2 10^3/uL (4.0-10.0)
[2022-02-09 10:13] LABS: Alanine Aminotransferase 10 U/L (0-33); Albumin Level 2.8 g/dL (3.5-5.2); Alkaline Phosphatase 91 IU/L (35-105); Aspartate Amino Transferase 21 U/L (0-32); Blood Urea Nitrogen 12 mg/dL (8-23); Calcium 7.8 mg/dL (8.5-10.5); Carbon Dioxide 33 mmol/L (22-29); Chloride 97 mmol/L (98-107); Globulin 3.6 g/dL (1.3-4.6); Glomerular Filtration Rate 84.5 mL/min (90-130); Glucose 86 mg/dL (65-115); Osmolality Calculated 281 mOsm/kg (285-295); Sodium 136 mmol/L (136-145); Total Bilirubin 0.3 mg/dL (0.15-1.2); Total Protein 6.4 g/dL (6.6-8.7)
[2022-02-09 10:16] LABS: Anion Gap 10.2 (5-19); Potassium 4.2 mmol/L (3.5-5.1)
[2022-02-09] MEDS: sodium chloride 0.9% 500 ML IV (12:01)
--- NOTE | 2022-02-13 12:59 | ONC FU_ITS ---
Viridiana Falcon Progress Note Patient: Romelia Carrasco V Unit #: [id number]: [id number] Dicatated By: Viridiana Falcon N.P.Date of Visit:Feb 09, 2022 Onc MED Follow-up/Prog Note Chief Complaint: Ovarian cancer History of Present Illness: This is a 61 year-old woman with recurrent ovarian cancer. She had optimal resection with her initial surgery back in May 2003. She had documented recurrence in July 2008, nearly 5 years after completion of adjuvant chemotherapy with 6 cycles of carboplatin/Taxol. She was retreated at that time with carboplatin/Taxol chemotherapy, but in combination with Avastin. Treatment was stopped after 4 cycles because of worsening neuropathy, but she did have a very good clinical response with normalization of the CA-125 level. She was then followed on observation. She did well until July 2012 when she presented with small bowel obstruction. Her Ca-125 level at that point had not increased and the obstruction initially did improve with conservative management. Ultimately, though, she was confirmed to have disease recurrence in the abdomen. She underwent surgery at [facility] in October 2012. At laparotomy there were extensive adhesions in the abdomen, but there was recurrent tumor in the right mid abdomen and right upper quadrant. It was involving the cecum, the mesocolon, and the small bowel mesentery in a multiple twisted mass. There also was periaortic juanita involvement. She underwent right hemicolectomy and primary anastamosis of the bowel with complete resection of the mass. 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 She had gradual recovery from that procedure. In February 2013 she restarted chemotherapy with carboplatin in combination with gemcitabine. She experienced a significant hypersensitivity reaction to the carboplatin with the third cycle of treatment. She then continued chemotherapy with single agent gemcitabine. She experienced significant fatigue and myelosuppression with gemcitabine, even at a reduced dose level. She did not tolerate an attempt at dose escalation. She had some ongoing GI symptoms during this time, but no documented disease progression. She had a followup visit with Dr. David in January 2014. Her disease at that time appeared stable, and it was recommended that she stop chemotherapy again and just go back on observation. By May 2015 she was having significantly more abdominal pain and repeat CT abdomen/pelvis at that point was highly suspicious for recurrent metastatic disease at the site of the ileocolic anastomosis. That study showed no obvious metastatic involvement in the liver and no ascites. In June 2015 she restarted chemotherapy with weekly paclitaxel. She initially was tolerating it pretty well on a day 1/day 8 schedule every 3 weeks. She had presented at day 15 of her third cycle with severe abdominal pain and nausea. Repeat CT scan showed increasing soft tissue at the ileocolic anastomosis. There was a large amount of fecal material proximal to that site, and an area of stenosis was suspected. She did improve, though, with conservative management, and she subsequently was able to continue chemotherapy with weekly paclitaxel. As of November 2015 she had completed 7 cycles of treatment. Her chemotherapy was put on hold after her cycle 8 day 1 treatment due to diarrhea and increased abdominal pain. Abdominal x-rays showed just nonspecific gas pattern in the left abdomen. She had restaging CT abdomen/pelvis again on 01/13/2016. It showed no obstruction and no evidence of disease progression. There was no lymphadenopathy or ascites noted. Her symptoms had subsequently improved, and she did then proceed with her 9th cycle of chemotherapy. Beginning with cycle 10, I did have her change to a day 1/day 15 schedule. She had subsequently tolerated it much better. As of her follow-up visit on 08/06/2016, she appeared stable clinically, and at that point she continued with her 16th cycle of treatment. Her day 15 treatment with that cycle was not administered. She continued treatment with cycle 18 day 1 on 10/01/2016. On 10/06/2016 she was admitted to the hospital with pneumonia. CT pulmonary angiogram at that time showed no evidence of pulmonary emboli. There were widespread tree-in-bud pulmonary parenchymal nodularities and there was evidence of underlying chronic emphysema. There was new hilar or mediastinal lymphadenopathy noted, possibly reactive or neoplastic. Also noted was a superior segment left lower lobe pulmonary nodule measuring 8.4 mm. She did improve on antibiotic therapy, and she was discharged home on 10/10/2016. She had quit smoking just prior to the hospitalization. She did not receive day 15 treatment with that cycle. During subsequent follow-up, I opted to keep her chemotherapy on hold, as her disease had been very stable. Restaging CT scans of the chest, abdomen, and pelvis on 04/28/2017 showed resolved hilar and mediastinal adenopathy and resolved left lower lobe pulmonary nodule. There was stable appearance of the ileocolic anastomosis. There was no evidence of disease progression. Restaging CT scans of the chest, abdomen, and pelvis on 11/16/2018 showed unchanged medial middle lobe parenchymal opacity measuring 8-9 mm. Lingular and anterior left lower lobe subsegmental atelectasis and/or scarring also appeared unchanged. There was no evidence of disease progression in the chest, abdomen, or pelvis. In February 2019 she had presented with new onset of swelling in the right leg. Venous Doppler of the right leg on 03/09/2019 showed partially occlusive deep vein thrombosis of the superficial femoral vein with thrombus noted to extend into the greater saphenous vein. She began on anticoagulation with apixaban. Restaging CT scans on 03/22/2019 showed stable 8-9 mm pulmonary nodule in the right middle lobe. Right hilar and infrahilar hilar lymph nodes also appeared stable. Moderate right hydronephrosis with right ureterectasis appeared to be new. Slightly prominent right inguinal lymph nodes appeared unchanged. Overall, there was no evidence of disease progression in the chest, abdomen, or pelvis. She continued on observation/expectant management. Her other medical illnesses include hypertension, hypercholesterolemia and gastroesophageal reflux disease. She also has chronic obstructive pulmonary disease and she had a pretty severe episode of pneumonia in December 2008. She had stopped smoking following her hospitalization in September. 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 Other surgeries have been limited to tonsillectomy and tubal ligation. INTERIM HISTORY: In April 2019 a next generation sequencing study was performed on the specimen from her surgical resection in October 2012. It showed presence of a BRCA1 mutation, presumed to be somatic, as her original germline BRCA testing was negative. There were no other actionable mutations identified. Repeat CT abdomen/pelvis on 06/22/2019 showed enlarging soft tissue mass in the right side of the pelvis measuring 3.5 cm. This was noted to be in the area of surgical clips from her prior hysterectomy, and the appearance was felt to be consistent with local recurrence or metastatic adenopathy. The mass was noted to be adjacent to and possibly invading the psoas muscle. There was increasing hydronephrosis of the right kidney. She was referred to Dr. David. On 07/18/2019 she underwent exploratory laparotomy with extensive adhesive lysis and extensive retroperitoneal exploration and debulking of right pelvic/psoas muscle tumor. The tumor was noted to obstruct the right ureter, and the procedure included placement of a right ureteral stent. Pathology showed high-grade carcinoma which was PAX-8 and WT-1 positive. During follow-up she had ongoing problems with urinary tract infection and she continued to have significant pain in the right groin area and lower abdomen. Her repeat CT abdomen/pelvis on 12/12/2019 showed progression of a right pelvic mass compared to the June 2019 study. At that point it measured 5.8 x 3.8 x 6.5 cm and it was noted to encase the right ureter. It was inseparable from the distal small bowel loops and it was noted to abut the right L5-S1 disc space. There was interval placement of right ureteral stent with resolution of right hydronephrosis. With those findings and with the known BRCA mutation, she began a trial of therapy with olaparib 300 mg bid on 12/18/2019. As of her follow-up visit on 02/21/2020 she was still having significant pain in the right lower quadrant area and she also was reporting increased nausea and fatigue. There had been a significant decline in her CA 125 level. I had suspected that at least some of her symptoms were treatment related. She continued the olaparib, but with the dosage reduced to 200 mg twice daily. Subsequent to that visit she had 2 hospitalizations at [facility] in [place], only by 4 or 5 days. On both occasions she had bowel obstruction which was relieved with conservative management. I had seen her for a follow-up visit on 03/21/2020. She was beginning to feel better. There was further decline in the CA 125 level to 6.7 U/mL compared to 32.8 U/mL on 12/26/2019. Restaging CT of the abdomen/pelvis on 05/22/2020 showed resolution of the previously described right lower quadrant pelvic mass. A right double-J ureteral stent was noted to be in place. There was right renal cortical atrophy. There was no hydronephrosis. There was no adenopathy noted in the abdomen or pelvis. There was moderate constipation. She continued the olaparib at [address] scans on 11/07/2020 showed new subsegmental atelectasis in the lingula and left lower lobe, but no change in an 8 mm right middle lobe pulmonary nodule or and a 9 mm right hilar lymph node. There was possible tumor recurrence noted in the right pelvis with a slightly lobulated soft tissue nodule measuring 2.4 cm adjacent to the ureteral stent and with possible invasion into the right psoas muscle. There were no other findings suspicious for disease progression. She continued treatment with olaparib 200 mg twice daily. On 12/10/2000 she was seen in the emergency room with abdominal pain. Her CT abdomen/pelvis showed interval moderate dilatation of multiple small bowel loops and prominent fluid distention of the stomach suggesting possible small bowel obstruction, though no obvious transition zone was evident. There was continued atrophy of the right kidney but interval worsening of mild right hydronephrosis. There was good positioning of the right ureteral stent. She then continued her treatment with olaparib. As of her follow-up visit in February 2021 she agreed to try increasing the dosage back up to 300 mg twice daily. At her follow-up visit in March, she was tolerating it with acceptable toxicity, and she continued the same treatment. On 06/29/2021 she was admitted to the hospital with pneumonia and acute hypoxic respiratory failure. At that time she had CT evidence of small bowel obstruction. She also had evidence of acute renal failure. Her blood cultures were positive for Enterococcus faecium vre and for yeast. She underwent removal of her Port-A-Cath venous access device. She did show recovery and she was discharged home on antibiotic coverage with Augmentin and linezolid, and she also continued treatment with fluconazole. On 07/13/2021 she presented to the emergency room with decreased mental status. Her CT abdomen/pelvis showed dilated small bowel suspicious for obstruction. She was transferred to the [facility] for admission. She was managed conservatively. On 07/29/2021 she was again admitted to the hospital with CT abdomen/pelvis showing multiple dilated small bowel loops consistent with small bowel obstruction. She improved with conservative treatment measures. She was seen for follow-up on August 05, 2021. At that point she continued to have relatively poor performance status, but she had been able to keep her bowels moving with a combination of MiraLAX, senna, and lactulose. With limited treatment options available, she opted to restart olaparib 300 mg twice daily. During subsequent follow-up she had further hospital admissions for nausea/vomiting on 09/07/2021 and on 10/05/2021. She was then admitted again on 10/09/2021. Her CT abdomen/pelvis at that time showed progressive small bowel dilatation and high-grade obstruction. Confluent loops of small bowel were noted near the umbilicus and the surgical anastomosis was felt to be the possible site of obstruction. An upper GI/small bowel follow-through was also consistent with small bowel obstruction. Lacking any other treatment options, she underwent exploratory laparotomy on 10/17/2021. Multiple small bowel loops were noted to be densely adherent to the abdominal wall along the laparotomy scar, for which she underwent a lengthy adhesiolysis procedure. At that point multiple loops of small bowel were noted to be adherent to the mass palpable in the retroperitoneum and the procedure was then limited to placement of a staple side to side ileocolic bypass. The procedure was complicated by iatrogenic cystotomy, which was repaired. She did not have evidence, though, of peritoneal carcinomatosis. She had a fairly uneventful postoperative recovery, and she was able to be discharged home on 10/23/2021. She initially felt much better, but as of her follow-up visit on 11/04/2021 she was again having significant abdominal pain, constipation, and difficulty eating. Patient presents today accompanied by her for follow-up after starting Rubraca. She appears very weak. She states she has extreme fatigue and is unable to perform much activity at all. Her ECOG is 3. She has no appetite. Her weight is remaining stable. She denies fever, chills, night sweats. No sinus drainage or mouth sores. She is short of breath with exertion. No cough or chest pain. She has had nausea over the past week but no vomiting. She continues to have diarrhea. She is having severe abdominal pain and lower pelvic pain that radiates down into her legs. She states it is constant and it seems to be getting worse. She is currently on a fentanyl patch and morphine for breakthrough pain. She becomes dizzy when she stands up. She does not feel like the Rubraca has caused any of her symptoms to worsen. Review Of Symptoms: See above Past Medical History: Chronic back pain (secondary to ruptured discs) Depression Peripheral neuropathy in 2008 Hypothyroidism in 2007 Chronic obstructive pulmonary disease in 2006 Anxiety in 2002 Coronary artery disease in 2002 Hypercholesterolemia in 2002 Hypertension in 2002 Gastroesophageal reflux disease in 2002 Past Surgical History: Stent placement in the ureter Covid vaccine #1 in 2020 Flu vaccine in 2019 Flu vaccine in 2018 - left deltoid Prevnar 13 in 2019 - right deltoid Pneumovax in 2015 Flu vaccine in 2015 Right subclavian Port in 2015 Flu vaccine in 2014 Flu in 2013 COLONOSCOPY in 2007 Appendectomy in 2002 Hysterectomy in 2002 - WITH BSO PORT PLACEMENT in 2002 Tubal ligation in 1991 Tonsillectomy in 1964 Allergies: Carboplatin Medications: Duragesic-100 1 Patch(es) (of 100 mcg) Patch 72 Hr Transdermal q 3 days Enalapril Maleate 1 (10 mg) Tablet Oral b.i.d. Levothroid 1 (50 mcg) Tablet Oral daily Lyrica 1 Capsule (of 150 mg) Oral t.i.d. MiraLax Pack Oral daily PRN Morphine Sulfate (30 mg) Tablet Oral Take as Directed Protonix 1 Tablet Tablet, enteric coated Oral daily Proventil HFA Aerosol, solution Inhalation PRN Senna 1 Tablet (of 8.6 mg) Capsule Oral b.i.d. TRAZADONE 1 (150 mg) Tablet Oral at bedtime Venlafaxine HCl 1 (150 mg) Capsule SR 24 HR Oral daily Xarelto 1 Tablet (of 10 mg) Oral daily Zofran 1 Tablet (of 4 mg) Oral q 4 hours PRN Family History: Ms. Carrasco's mother at age 59: cancer history consists of Breast cancer at age 28 while other medical history includes NE at age 57 (cause of ). Ms. Carrasco's father is alive. Ms. Carrasco does not know if her maternal grandmother is alive. She does not know if her maternal grandfather is alive. Ms. Carrasco has 1 brother who is alive. Social History: Ms. Carrasco is and she is an on disability. She is an occasional smoker who has smoked 0.5 packs/day for 32 years. She is a former drinker. She has indicated exposure to the following products: cigarettes. Ms. Carrasco reports the following support systems: lives with spouse, significant other, family, or friends, lives in own house, supportive family/friends willing to assist with needs, and adequate transportation available for expected visits. Her diet consists of regular meals. She indicates her activity level as: daily activities. she smokes 5 cigaretter per day and has an e cigarette. Physical Examination: Performed on Feb 09, 2022 13:18: Height - 67.00 in, Temperature - 97.7 F (LOW), Pulse - 88 /min, Respiration - 18 /min, BP - 122/84 mm(hg), O2 Sat - 99 %, Performed on Feb 09, 2022 11:30: Height - 67.00 in, Temperature - 97.4 F (LOW), Pulse - 87 /min, Respiration - 18 /min, BP - 118/78 mm(hg), O2 Sat - 99 %, Performed on Feb 09, 2022 11:00: Height - 67.00 in, Weight - 99.8 lbs (HIGH), BSA - 1.50 sq.m, BMI - 15.63 (LOW), Temperature - 98.9 F (HIGH), Pulse - 101 /min (HIGH), Respiration - 16 /min, BP - 116/75 mm(hg), O2 Sat - 99 %, Pain - 7, and Fatigue - 9. Performance Status: 3 - Capable of only limited self-care, confined to bed or chair more than 50% of waking hours. (ECOG) Constitutional Alert, cooperative, oriented. Chronically ill appearance Respiratory Lungs are clear to auscultation without rhonchi or wheezing. Cardiovascular Regular rate and rhythm of heart without murmurs, gallops or rubs. Abdomen Non-tender, non-distended, no masses, ascites or hepatosplenomegaly. Good bowel sounds. No guarding or rebound tenderness. Musculoskeletal Generalized weakness Psychiatric Alert and oriented times three. Coherent speech. Verbalizes understanding of our discussions today. Laboratory: Test performed on Feb 09, 2022 09:33 Sodium 136 mmol/L Potassium 4.2 mmol/L Chloride 97 mmol/L CO2 33 mmol/L Anion Gap 10.2 BUN 12 mg/dL Creatinine 0.7 mg/dL Cr Clearance (Est) 58.7900 mL/min eGFR 84.5 mL/min Glucose 86 mg/dL Osmolality - Calculated 281 mOsm/kg Calcium 7.8 mg/dL Protein, Total 6.4 g/dL Albumin 2.8 g/dL Globulin 3.6 g/dL Bilirubin, Total 0.3 mg/dL ALT (SGPT) 10 U/L AST (SGOT) 21 U/L Alkaline Phosphatase 91 IU/L WBC 9.2 10 3/uL RBC 3.58 10 6/uL HGB 9.7 g/dL HCT 32.5 % MCV 90.8 fl MCH 27.1 pg MCHC 29.8 g/dL RDW 16.6 % Platelet Count 219 10 3/cmm MPV 9.4 fL Neutrophils 7.36 10 3/uL Lymphocytes 1.2 10 3/uL Monocytes 0.5 10 3/uL Eosinophils 0.1 10 3/uL Basophils 0.0 10 3/uL Neutrophil % 80.3 % Lymphocyte % 12.6 % Monocyte % 5.6 % Eosinophil % 0.9 % Basophils % 0.4 % NRBC % 0 % Test performed on Nov 04, 2021 12:10 CA-125 46.3 U/mL Impression: 1. Recurrent ovarian cancer. By next generation sequencing her tumor was noted to harbor a BRCA1 mutation, presumed somatic, as her original testing for germline BRCA was negative. Her tumor also was tested and found to be MSI stable with intact mismatch repair proteins. 2. Hypertension. 3. Hyperlipidemia. 4. GERD. 5. COPD with recurrent episodes of pneumonia. 6. Degenerative disease of the spine with chronic back pain. 7. Chronic anxiety/depression. Plan: Patient with recurrent ovarian cancer. She had optimal debulking following initial diagnosis in May 2003, and she received adjuvant chemotherapy with 6 cycles of carboplatin/paclitaxel. She had further treatment with 4 cycles of carboplatin/paclitaxel in combination with Avastin following documented recurrence in July 2008. She had restarted chemotherapy with carboplatin/gemcitabine in February 2013 following a surgical debulking procedure for disease progression with associated bowel obstruction. Her treatment was subsequently modified to single agent gemcitabine as a result of a hypersensitivity reaction to carboplatin. She had some response to the chemotherapy. As of January 2014 her disease was felt to be stable, and she was then observed off treatment. In May 2015 she restarted chemotherapy with weekly paclitaxel. Following her cycle 18 treatment on 09/17/2016 she had another hospital admission for pneumonia. As her disease had been stable and her performance status had been declining, her chemotherapy at that point was put on hold. During followup she had further evaluation by next generation sequencing, and her tumor was noted to harbor a BRCA1 mutation. It was presumed to be somatic, as her original testing for germline BRCA was negative. Her tumor also was tested and found to be MSI stable with intact mismatch repair proteins. In November 2019 she had evidence of disease progression with CT evidence of right pelvic mass with ureteral obstruction and hydronephrosis, requiring placement of right ureteral stent. In December 2019 she began a trial of therapy with olaparib, initially at 300 mg twice daily. She did show a very good response by follow-up CT scan and by CA-125 level, but she subsequently did require a dose reduction to 200 mg twice daily. In June she had a hospital admission for pneumonia/acute respiratory failure. Blood cultures were positive for Enterococcus and for yeast. She underwent removal of her Port-A-Cath venous access device. She did recover, but during subsequent follow-up she had 3 further hospital admissions for small bowel obstruction, all managed conservatively. She was seen for follow-up on 07/30/2021, and with limited treatment options available, she opted to restart olaparib at 300 mg twice daily. She has since then continued to have very marginal performance status. She has had ongoing issues with abdominal pain as well as chronic neuropathy pain, management of which has been problematic due to potential opiate associated side effects, including constipation and respiratory depression. During subsequent follow-up she had multiple hospitalizations for recurrent nausea/vomiting. On 10/09/2021 she was admitted again with her CT showing evidence of high-grade small bowel obstruction. This was also confirmed on a subsequent upper GI/small bowel follow-through. Lacking any other treatment options, she underwent exploratory laparotomy on 10/17/2021. There was evidence of small bowel obstruction at the site of the retroperitoneal mass. She did not, however, have peritoneal carcinomatosis. The procedure was limited to extensive adhesiolysis and placement of palliative side to side ileocolic bypass. She was able to be discharged home on 10/23/2021. Initially she was feeling better, but as of her follow-up visit on 11/04/2021 she was having more abdominal pain, constipation, and difficulty eating. She has since then felt a little better, but she continues to complain of abdominal pain and gas, and she still has limited oral intake and marginal performance status. Her overall condition and prognosis remain poor, but for now she continues symptomatic management, she was started on Amitiza but it caused nausea and vomiting so she discontinued. CT scan was performed on 02/06/2022 to reevaluate ovarian cancer. It was compared to the one performed on 10/13/2021. It indicated an increase in size of the infiltrative lobulated soft tissue mass in the right retroperitoneum invading the psoas muscle and obstructing the ureter. This mass now also is displacing the adjacent small bowel and colon. There is probably invasion into the GI tract. Mass is difficult to separate from the colon and distal small bowel. No obstruction at this time. Neoplastic mass has increased in size with a major component now made measuring 4.8 x 3.9 cm. There is a slight increase in size of the right inguinal and distal right iliac lymph node. There is soft tissue anasarca. There is a double-pigtail right ureteral stent remains in good position. Chronic hydronephrosis and cortical thinning of the right kidney is unchanged. CT scan results were discussed with the patient. It is recommended at this time that she discontinue the Rubraca and go on hospice care. She is currently receiving home health care and would like to discuss this further with her home health nurse. Also offered to send out somebody to discuss the differences between home health and hospice. Patient seems ready to discontinue Rubraca and receive hospice care but her is reluctant. They would discuss further and let us know. Signed By: Viridiana Falcon N.P. <<Signature on File>>
== END 2022-02-09 09:15 | disposition home or self-care (01) ==
PROVIDERS: Visit Provider Nurse Practitioner Family
DX: C56.9 Malignant neoplasm of unspecified ovary (principal); R19.00 Intra-abdominal and pelvic swelling, mass and lump, unspecified site; R59.0 Localized enlarged lymph nodes; R60.1 Generalized edema
CPT/HCPCS: 80053; 85025; 96360; 99215; J7040

== ENCOUNTER 2022-04-17 10:59 | Inpatient (IN) | payer MEDICARE, OTHER, SELFPAY ==
[2022-04-17] VITALS (10 sets, daily range): BP systolic 94–98; BP diastolic 55–69; PULSE 15–105; RESP 13–20; TEMP 36.8; O2SAT 93–100; BMI 24.4
--- NOTE | 2022-04-17 11:05 | XR_ITS ---
WS: [id number] XR hip RT 2-3V wo/w pel* [id number] REASON FOR EXAM: hip pain FINDINGS: No fracture or focal bone lesion. Minimal narrowing of the joint space. Mild subchondral sclerosis in the acetabulum. No soft tissue abnormality. XR/XR hip RT 2-3V wo/w pel* [id number] IMPRESSION: Mild changes of osteoarthritis.
--- NOTE | 2022-04-17 11:14 | XR_ITS ---
WS: [id number] XR tibia fibula RT 2V [id number] REASON FOR EXAM: pain FINDINGS: Fractures of the proximal tibia and fibula described on the previous right knee examination. The more distal tibia and fibula demonstrate no abnormality. The ankle joint mortise is intact with n o malleolar fractures. XR/XR tibia fibula RT 2V [id number] IMPRESSION: Fracture of the right tibia and fibula.
--- NOTE | 2022-04-17 11:14 | XR_ITS ---
WS: [email or web address] XR knee RT 1-2V 06709 REASON FOR EXAM: back pain FINDINGS: Oblique comminuted fracture of the proximal metadiaphysis of the right tibia. Mild lateral displacement of the distal fracture fragments. Minimal anterior angulation at the fractu re sites. Knee joint spaces and articular surfaces are unremarkable. Normal distal femur. The patella is normal. XR/XR knee RT 1-2V [id number] IMPRESSION: Fracture of the proximal tibia and fibula as above.
--- NOTE | 2022-04-17 11:20 | W.ED.GENADLT ---
HPI - General Adult General: Chief complaint: Fall Stated complaint: R HIP, R LEG PAIN Time Seen by Provider: 04/17/22 11:02 History of Present Illness: Patient is a 61-year-old female with a history of stage IV ovarian cancer presenting to the emergency after an episode of fall. Patient was getting up around 8:00 this morning when he she tells me that she lost balance and fell onto the right side. Patient complains of right leg and hip pain. Patient denies hitting her head. Patient denies any LOC. No history of anticoagulation use. Recently, patient has chronic back pain. However since the fall, patient reports worsening thoracic and lumbar back pain. No other focal areas of pain. Patient has been able to ambulate after the fall. Onset: 8am Duration:ongoing Location:home Severity:moderate Associated symptoms: Deny chest pain, dyspnea, nausea, rash, palpitations or vomiting Review of Systems Const: Denies: fever(s) or chills Eyes: Denies: change in vision ENMT: Denies: mouth pain Card: Denies: chest pain or palpitations Resp: Denies: dyspnea or non-productive cough GI: Denies: abdominal pain, nausea, vomiting or diarrhea : Denies: dysuria Musc: Reports: back pain (+lower and middle back pain) and extremity pain (+R leg pain, and R thigh pain) Skin/Breast: Denies: rash or new lesions Neuro: Denies: weakness in extremities Psych: Reports: other (Normal mood) Kashif/Lymph: Denies: easy bruising PFSH ED PFSH: Medical History Chronic pain COPD (chronic obstructive pulmonary disease) Chronically on 3 L of oxygen Depression Extrinsic ureteral obstruction Fungemia History of DVT (deep vein thrombosis) Hydronephrosis, right Hyponatremia Hypothyroidism Hypoxia Malnutrition Multifocal pneumonia Ovarian cancer on right Recurrent UTI Renal failure SBO (small bowel obstruction) VRE bacteremia Surgical History History of hysterectomy with bilateral oophorectomy History of right hemicolectomy S/P exploratory laparotomy (~10/17/21) S/P ureteral stent placement Family History Mother , at age 59 Cancer breast Myocardial infarction (lateral wall) Father Cancer prostate cancer Pacemaker Other CAD (coronary artery disease) Hypertension Social History Smoking and tobacco status: current some day smoker Alcohol intake: never Adopted: No Caregiver/support person: No Lives independently: No Household members: spouse Marital status: Current occupational status: disabled History of recent travel: No Female Reproductive History: Date of last menstrual period: 12/01/19 Physical Exam Const: COMMON NORMALS: alert HENMT: COMMON NORMALS: atraumatic HEAD & SCALP: atraumatic MOUTH: moist mucous membranes not abnormal Eye: COMMON NORMALS: EOMs intact bilaterally and conjunctivae normal CONJUNCTIVA: Yes conjunctivae normal Neck/C-Spine: COMMON NORMALS: full ROM and supple Resp: COMMON NORMALS: normal respiratory effort and clear to auscultation bilaterally AUSCULTATION: clear to auscultation bilaterally Cardio: COMMON NORMALS: regular rate RATE: regular rate GI: COMMON NORMALS: Soft to palpation and non-tender PALPATION: Yes Soft to palpation Back/Pelvis: OTHER: + Mild midline thoracic/lumbar/cervical tenderness to palpation, paraspinal tenderness to palpation\ + Cap refill 4 seconds in the right lower extremity, sensation intact in the right lower extremity, patient has palpable tenderness proximal tibia and distal femur to palpation Extremity: COMMON NORMALS: full ROM Neuro: SENSORIUM/ORIENTATION: Yes alert MOTOR EXAM: No Abnormal motor strength present and Other motor observations present (no focal motor deficits) Psych: COMMON NORMALS: speech normal SPEECH: Yes normal speech MOOD & AFFECT: Yes euthymic mood Course Vital Signs: Vital signs: Vital Signs Temperature 98.3 F 04/17/22 11:04 Pulse Rate 96 04/17/22 11:04 Respiratory Rate 13 04/17/22 15:00 Blood Pressure 98/69 04/17/22 11:04 Pulse Oximetry 100 04/17/22 15:00 MDM - General Adult Medical Decision Making 61-year-old female w/ a hx of ovarian cancer presenting to the emergency room after episode of fall. XR showed R tib/fib fracture. I discussed case with Dr. Licona with recommendation for knee immobilizer. Patient continues to have significant pain. We contacted [facility], patient's hospice provider, and spoke with Zena who tells me that patient is currently scheduled for outpatient hospice at home once a week. At this time, patient elects to have hospice daily. We have arranged for patient to have hospice daily through the [facility]. However shortly prior to discharge, I have discussed case with patient's who tells me that he is unable to pick her up. Disposition: admission Lab Data : 04/17/22 12:00 04/17/22 12:00 Radiology Impressions Hip/Pelvis X-Ray 04/17/22 11:05 IMPRESSION: Mild changes of osteoarthritis. Knee X-Ray 04/17/22 11:14 IMPRESSION: Fracture of the proximal tibia and fibula as above. Tibia/Fibula X-Ray 04/17/22 11:14 IMPRESSION: Fracture of the right tibia and fibula. Laboratory Results WBC 9.7 10^3/uL (4.0-10.0) 04/17/22 12:00 RBC 2.68 10^6/uL (4.1-5.3) L 04/17/22 12:00 Hgb 7.2 g/dL (11.5-15.3) L 04/17/22 12:00 Hct 22.4 % (37.0-47.0) L 04/17/22 12:00 MCV 83.6 fl (81-99) 04/17/22 12:00 MCH 26.9 pg (28.0-34.0) L 04/17/22 12:00 MCHC 32.1 g/dL (30.0-36.0) 04/17/22 12:00 RDW 16.2 % (12.1-15.1) H 04/17/22 12:00 Plt Count 167 10^3/cmm (130-400) 04/17/22 12:00 MPV 11.6 fL (7.4-10.4) H 04/17/22 12:00 Neut % (Auto) 82.6 % 04/17/22 12:00 Lymph % (Auto) 8.5 % 04/17/22 12:00 [place] % (Auto) 8.2 % 04/17/22 12:00 Eos % (Auto) 0.2 % 04/17/22 12:00 Baso % (Auto) 0.2 % 04/17/22 12:00 Neut # (Auto) 8.02 10^3/uL (1.8-7.7) H 04/17/22 12:00 Lymph # (Auto) 0.8 10^3/uL (0.8-4.8) 04/17/22 12:00 [place] # (Auto) 0.8 10^3/uL (0.2-0.9) 04/17/22 12:00 Eos # (Auto) 0.0 10^3/uL (0.0-0.8) 04/17/22 12:00 Baso # (Auto) 0.0 10^3/uL (0.0-0.1) 04/17/22 12:00 Nucleated RBC % (auto) 0 % 04/17/22 12:00 Nucleated RBCs # 0.0 /100WBC 04/17/22 12:00 Sodium 128 mmol/L (136-145) L 04/17/22 12:00 Potassium 4.4 mmol/L (3.5-5.1) 04/17/22 12:00 Chloride 92 mmol/L (98-107) L 04/17/22 12:00 Carbon Dioxide 26 mmol/L (22-29) 04/17/22 12:00 Anion Gap 14.4 (5-19) 04/17/22 12:00 BUN 18 mg/dL (8-23) 04/17/22 12:00 Creatinine 0.7 mg/dL (0.5-0.9) 04/17/22 12:00 GFR Calculation 84.5 mL/min (90-130) L 04/17/22 12:00 Glucose 68 mg/dL (65-115) 04/17/22 12:00 Calculated Osmolality 266 mOsm/kg (285-295) L 04/17/22 12:00 Calcium 7.9 mg/dL (8.5-10.5) L 04/17/22 12:00 Total Bilirubin 0.3 mg/dL (0.15-1.2) 04/17/22 12:00 AST 13 U/L (0-32) 04/17/22 12:00 ALT 7 U/L (0-33) 04/17/22 12:00 Alkaline Phosphatase 71 IU/L (35-105) 04/17/22 12:00 Total Protein 5.8 g/dL (6.6-8.7) L 04/17/22 12:00 Albumin 2.2 g/dL (3.5-5.2) L 04/17/22 12:00 Globulin 3.6 g/dL (1.3-4.6) 04/17/22 12:00 Imaging Data Other Imaging: Radiologist's impression: XRay Report Signed Patient: Romelia Carrasco V Unit #: [id number] : 1960 Age/Sex: 61 / F ADM Date: 04/17/22 Loc: ER Room/Bed: Attending Dr: Ordering Provider/Ordering MD: Glory Walters MD Date of Service: 04/17/22 Procedure(s): XR tibia fibula RT 2V [id number] Accession Number(s): [id number] Report Number: [id number] WS: [email or web address] XR tibia fibula RT 2V [id number] REASON FOR EXAM: pain FINDINGS: Fractures of the proximal tibia and fibula described on the previous right knee examination. The more distal tibia and fibula demonstrate no abnormality. The ankle joint mortise is intact with no malleolar fractures. XR/XR tibia fibula RT 2V [id number] IMPRESSION: Fracture of the right tibia and fibula. ? ? Dictated By: Jacinto Skinner Jr, MD Signed By: Jacinto Skinner Jr, MD Signed Date/Time: 04/17/22 1142 DD/ 1141 Discharge Plan Discharge Patient Disposition: Admitted As Inpatient Clinical Impression: Closed tibial fracture, Closed fibular fracture, Acute leg pain Condition: Stable Coding Level of Care Code ED Leasing Representative for Chg Fwd Exam Comprehensive
[2022-04-17] MEDS: morphine 4 mg/mL SDV 1 mL IVP (11:55)
--- NOTE | 2022-04-17 12:23 | PC.NURSE ---
long knee immobilizer applied to right knee pt unable to use crutches due to weakness
[2022-04-17] MEDS: HYDROmorphone 1 mg/mL INJ 1 mL 0.5 MG IVP (15:00)
[2022-04-17 16:14] LABS: Basophils % 0.2 %; Eosinophils % 0.2 %; Hematocrit 22.4 % (37.0-47.0); Hemoglobin 7.2 g/dL (11.5-15.3); Lymphocytes # 0.8 10^3/uL (0.8-4.8); Lymphocytes % 8.5 %; Mean Corpuscular HGB Conc 32.1 g/dL (30.0-36.0); Mean Corpuscular Hemoglobin 26.9 pg (28.0-34.0); Mean Corpuscular Volume 83.6 fl (81-99); Mean Platelet Volume 11.6 fL (7.4-10.4); Monocytes # 0.8 10^3/uL (0.2-0.9); Monocytes % 8.2 %; Neutrophils # 8.02 10^3/uL (1.8-7.7); Neutrophils % 82.6 %; Nucleated Red Blood Cells % 0 %; Platelet Count 167 10^3/cmm (130-400); Red Blood Count 2.68 10^6/uL (4.1-5.3); Red Cell Distribution Width 16.2 % (12.1-15.1); White Blood Count 9.7 10^3/uL (4.0-10.0)
[2022-04-17 16:30] LABS: Slide Review Slide Review Perform
[2022-04-17 16:35] LABS: Alanine Aminotransferase 7 U/L (0-33); Albumin Level 2.2 g/dL (3.5-5.2); Alkaline Phosphatase 71 IU/L (35-105); Anion Gap 14.4 (5-19); Aspartate Amino Transferase 13 U/L (0-32); Blood Urea Nitrogen 18 mg/dL (8-23); Calcium 7.9 mg/dL (8.5-10.5); Carbon Dioxide 26 mmol/L (22-29); Chloride 92 mmol/L (98-107); Globulin 3.6 g/dL (1.3-4.6); Glomerular Filtration Rate 84.5 mL/min (90-130); Glucose 68 mg/dL (65-115); Osmolality Calculated 266 mOsm/kg (285-295); Potassium 4.4 mmol/L (3.5-5.1); Sodium 128 mmol/L (136-145); Total Bilirubin 0.3 mg/dL (0.15-1.2); Total Protein 5.8 g/dL (6.6-8.7)
[2022-04-17] MEDS: morphine 4 mg/mL SDV 1 mL 2 MG IVP ×2 (17:24→22:04)
--- NOTE | 2022-04-17 18:09 | PM.HP ---
Providers/Chief Complaint Admitting Physician: Katerin Sebastian MD Chief Complaint: R HIP, R LEG PAIN History of Present Illness Romelia Carrasco is a 61 year old female on hospice at home came after a fall. She has been diagnosed with leg fractuer. Does want to go back to hospice however could not be transferred from the ER as her does not have any ride available and her insurance wont cover a trip back to [place]. Patient is needing overnight stay for disposition back to home tomorrow with hospice care. Patient is stating that she just lost her balance while she was turning around near her fridge, she fell and sustained fracture. She did not lose consciousness, no vasovagal syncope, no chest pain no signs of stroke. Review of Systems Const: Denies: fever(s) Eyes: Denies: change in vision ENMT: Denies: throat pain Card: Denies: chest pain Resp: Denies: dyspnea GI: Denies: abdominal pain : Denies: flank pain Musc: Reports: back pain, extremity pain, extremity swelling and joint pain Skin/Breast: Reports: lesions Neuro: Denies: headache(s) Psych: Denies: anxiety Endo: Denies: polyuria Kashif/Lymph: Denies: easy bruising All/Imm: Denies: urticaria Medications/Allergies Home Medications Medication Instructions Recorded Confirmed Last Taken Type rivaroxaban 20 mg tablet (Xarelto) 20 mg PO DAILY 11/29/19 04/17/22 04/17/22 History venlafaxine 150 mg 150 mg PO BEDTIME 11/29/19 04/17/22 04/16/22 History capsule,extended release 24 hr (Effexor XR) trazodone 150 mg tablet 150 mg PO BEDTIME 12/01/19 04/17/22 04/16/22 History fentanyl 100 mcg/hr transdermal 1 patch TOPICAL Q72H 12/04/19 04/17/22 04/17/22 History patch enalapril maleate 10 mg tablet 10 mg PO BID 07/31/21 04/17/22 04/17/22 History (Vasotec) pregabalin 150 mg capsule (Lyrica) 150 mg PO TID 07/31/21 04/17/22 04/17/22 History albuterol sulfate 90 mcg/actuation 2 puff INHALATION Q6H PRN 09/07/21 04/17/22 11/10/21 History aerosol inhaler ondansetron HCl 4 mg tablet 4 mg PO Q4H PRN 09/07/21 04/17/22 Unknown History morphine 30 mg immediate release 30 mg PO Q2H PRN tab 11/04/21 04/17/22 04/17/22 History tablet pantoprazole 40 mg tablet,delayed 40 mg PO DAILY 30 Days #30 tab 11/28/21 04/17/22 04/17/22 Rx release (Protonix) levothyroxine 50 mcg tablet 50 mcg PO DAILY #90 tab 03/25/22 04/17/22 04/17/22 Rx (Synthroid) aspirin 81 mg chewable tablet 81 mg PO DAILY 04/17/22 04/17/22 04/17/22 History dexamethasone 4 mg tablet 4 mg PO BID 04/17/22 04/17/22 04/16/22 History famotidine 20 mg tablet 20 mg PO DAILY 04/17/22 04/17/22 04/17/22 History fentanyl 50 mcg/hr transdermal 1 patch TRANSDERMAL Q72H 04/17/22 04/17/22 04/17/22 History patch lactulose 20 gram/30 mL oral 20 g PO DAILY PRN 04/17/22 04/17/22 Unknown History solution lorazepam 0.5 mg tablet 0.5 mg PO Q4H PRN 04/17/22 04/17/22 Unknown History nitrofurantoin 100 mg PO BID 04/17/22 04/17/22 04/17/22 History monohydrate/macrocrystals 100 mg capsule (Macrobid) polyethylene glycol 3350 17 17 g PO DAILY PRN 04/17/22 04/17/22 Unknown History gram/dose oral powder (Miralax) simethicone 180 mg capsule 180 - 360 mg PO DAILY PRN 04/17/22 04/17/22 Unknown History Allergies Allergy/AdvReac Type Severity Reaction Status Date / Time carboplatin AdvReac ADR-Vomitin Verified 01/06/22 09:55 g PFSH Acute PFSH: Medical History Chronic pain COPD (chronic obstructive pulmonary disease) Chronically on 3 L of oxygen Depression Extrinsic ureteral obstruction Fungemia History of DVT (deep vein thrombosis) Hydronephrosis, right Hyponatremia Hypothyroidism Hypoxia Malnutrition Multifocal pneumonia Ovarian cancer on right Recurrent UTI Renal failure SBO (small bowel obstruction) VRE bacteremia Surgical History History of hysterectomy with bilateral oophorectomy History of right hemicolectomy S/P exploratory laparotomy (~10/17/21) S/P ureteral stent placement Family History Mother , at age 59 Cancer breast Myocardial infarction (lateral wall) Father Cancer prostate cancer Pacemaker Other CAD (coronary artery disease) Hypertension Social History Smoking and tobacco status: current some day smoker Alcohol intake: never Adopted: No Caregiver/support person: No Lives independently: No Household members: spouse Marital status: Current occupational status: disabled History of recent travel: No Female Reproductive History: Date of last menstrual period: 12/01/19 Vitals/I&O/Wt Last Vital Signs Temp 98.3 F 04/17/22 11:04 Pulse 105 H 04/17/22 17:41 Resp 18 04/17/22 17:41 BP 96/55 04/17/22 17:41 Pulse Ox 97 04/17/22 15:07 Weight last 48 hrs Weight 70.76 kg Physical Exam Narrative: Cachectic malnourished female No vascular compromise of lower extremity Lower extremity mild swelling Pain to bony Very frail appearing Awake and alert Nonfocal neuro exam Saturating well on 2 L nasal cannula Looks dehydrated No audible stridor or wheezing No active chest pain or any distress Data : 04/17/22 12:00 04/18/22 04:03 A&P Assessment and plan (1) Closed tibial fracture: Status: Acute (2) Closed fibular fracture: Status: Acute Plan Acute fracture of right tibia and fibula after sustaining a mechanical fall at home Hospice care [facility] DVT prophylaxis knee immobilzer Dr. Munoz has been consulted by the ER physician Family stating that they have not made up their mind yet regarding surgery but would like an opinion from a surgeon Attestations Medical Necessity Statement*: Anticipating discharge within 48 was need evaluation by orthopedic surgeon Time Spent in Patient Care: 40 Coding Level of Care Code Acute Motor And Chassis Inspector for Chg Fwd Diagnoses Closed tibial fracture S82.209A Closed fibular fracture S82.409A
[2022-04-17] MEDS: enoxaparin 40 mg/0.4 mL Syringe SUBCUT (18:32)
[2022-04-17] MEDS: morphine IR 15 mg Tablet PO (20:02)
--- NOTE | 2022-04-17 20:40 | PC.NURSE ---
Dr. Moreno sent a secure message requesting something for excessive gas and bloating per pt's request. She has also been notified of pt's firm,distended abdomen and hypoactive bowel sounds.
[2022-04-17] MEDS: HYDROmorphone 1 mg/mL INJ 1 mL 0.4 MG IVP (23:36)
--- NOTE | 2022-04-17 23:45 | PC.NURSE ---
Pt's legs elevated for comfort. Brace remains in place on right lower leg.
[2022-04-18] VITALS (9 sets, daily range): PULSE 95; RESP 14–20; O2SAT 93–99
[2022-04-18] MEDS: morphine IR 15 mg Tablet PO ×2 (01:52→10:49)
[2022-04-18] MEDS: morphine 4 mg/mL SDV 1 mL 2 MG IVP ×2 (03:06→08:31)
--- NOTE | 2022-04-18 04:00 | PC.NURSE ---
Pt resting quietly in bed with eyes closed. Respirations are even and unlabored. Skin is dry and pale/sallow.
[2022-04-18 04:46] LABS: Alanine Aminotransferase 7 U/L (0-33); Albumin Level 2.1 g/dL (3.5-5.2); Alkaline Phosphatase 63 IU/L (35-105); Anion Gap 9.1 (5-19); Aspartate Amino Transferase 11 U/L (0-32); Blood Urea Nitrogen 20 mg/dL (8-23); Calcium 7.6 mg/dL (8.5-10.5); Carbon Dioxide 30 mmol/L (22-29); Chloride 95 mmol/L (98-107); Globulin 3.1 g/dL (1.3-4.6); Glomerular Filtration Rate 84.5 mL/min (90-130); Glucose 88 mg/dL (65-115); Osmolality Calculated 272 mOsm/kg (285-295); Potassium 4.1 mmol/L (3.5-5.1); Sodium 130 mmol/L (136-145); Total Bilirubin 0.4 mg/dL (0.15-1.2); Total Protein 5.2 g/dL (6.6-8.7)
[2022-04-18] MEDS: HYDROmorphone 1 mg/mL INJ 1 mL 0.4 MG IVP (04:59)
--- NOTE | 2022-04-18 04:59 | PC.NURSE ---
Pt has Fentanyl patch on left shoulder placed on 04/17 prior to admission.
--- NOTE | 2022-04-18 05:46 | PC.NURSE ---
New #22 gauge IVL started in right forearm after #24 occluded.
[2022-04-18] MEDS: sennosides-docusate Tablet 1 TAB PO (08:30)
--- NOTE | 2022-04-18 12:48 | P.DS_ITS ---
Discharge Providers Date of Admission: 04/17/22 16:38 Date of Discharge: April 18, 2022 Attending Provider at Admission: Katerin Sebastian MD Attending Provider at Discharge: Katerin Sebastian MD Diagnoses at Discharge Discharge Diagnosis (1) Closed tibial fracture: Status: Acute (2) Closed fibular fracture: Status: Acute Reason for Visit Reason for Visit: R HIP, R LEG PAIN Hospital Course Hospital Course 60-year-old female who is on hospice at home for her recurrent ovarian cancer, presented to the hospital after sustaining a fall she has been diagnosed with proximal tibia-fibula fracture, ER physician tried to transfer her from the ER back to her home with home hospice however he was not able to do so, requested hospitalist service to admit her and arrange disposition, is stating that his car is still broke and they have a friend in [place] who might be able to drive her back home if orthopedic surgeon would not intervene. They were not sure about surgery because she is very sick, weak and lethargic and had a lot of complications with anesthesia in the past. Family is leaning towards conservative management. I did speak with Dr. Licona about this case, he did give both options surgical intervention versus knee immobilization with a cast and conservative management, family opted for nonsurgical intervention, I Case cussed this case with our senior buyer planner Renee who is trying to arrange ambulance ride because will need help to get her out of the car and safe entrance to the home. I made multiple phone calls to coordinate her discharge from the hospital and safe transportation Patient at home takes 2 tablets of hydrocodone and 30 mg of morphine every 12 hours I did change her opioid regime Physical Exam Narrative: Weak and lethargic female No signs of stroke S1, S2 with active murmur Currently on 2 L nasal cannula Malnourished, cachectic, No audible stridor or wheezing Awake and alert No acute signs of stroke Right leg is in brace Discharge Data Studies Completed and Pending Completed Studies During Hospitalization Category Date Time Status XR hip RT 2-3V wo/w pel* [id number] Urgent Exams 04/17/22 11:05 Completed XR knee RT 1-2V 43379 Urgent Exams 04/17/22 11:14 Completed XR tibia fibula RT 2V [id number] Urgent Exams 04/17/22 11:14 Completed Radiology Impressions Hip/Pelvis X-Ray 04/17/22 11:05 IMPRESSION: Mild changes of osteoarthritis. Knee X-Ray 04/17/22 11:14 IMPRESSION: Fracture of the proximal tibia and fibula as above. Tibia/Fibula X-Ray 04/17/22 11:14 IMPRESSION: Fracture of the right tibia and fibula. Laboratory Results WBC 9.7 10^3/uL (4.0-10.0) 04/17/22 12:00 RBC 2.68 10^6/uL (4.1-5.3) L 04/17/22 12:00 Hgb 7.2 g/dL (11.5-15.3) L 04/17/22 12:00 Hct 22.4 % (37.0-47.0) L 04/17/22 12:00 MCV 83.6 fl (81-99) 04/17/22 12:00 MCH 26.9 pg (28.0-34.0) L 04/17/22 12:00 MCHC 32.1 g/dL (30.0-36.0) 04/17/22 12:00 RDW 16.2 % (12.1-15.1) H 04/17/22 12:00 Plt Count 167 10^3/cmm (130-400) 04/17/22 12:00 MPV 11.6 fL (7.4-10.4) H 04/17/22 12:00 Neut % (Auto) 82.6 % 04/17/22 12:00 Lymph % (Auto) 8.5 % 04/17/22 12:00 [place] % (Auto) 8.2 % 04/17/22 12:00 Eos % (Auto) 0.2 % 04/17/22 12:00 Baso % (Auto) 0.2 % 04/17/22 12:00 Neut # (Auto) 8.02 10^3/uL (1.8-7.7) H 04/17/22 12:00 Lymph # (Auto) 0.8 10^3/uL (0.8-4.8) 04/17/22 12:00 [place] # (Auto) 0.8 10^3/uL (0.2-0.9) 04/17/22 12:00 Eos # (Auto) 0.0 10^3/uL (0.0-0.8) 04/17/22 12:00 Baso # (Auto) 0.0 10^3/uL (0.0-0.1) 04/17/22 12:00 Nucleated RBC % (auto) 0 % 04/17/22 12:00 Nucleated RBCs # 0.0 /100WBC 04/17/22 12:00 Sodium 130 mmol/L (136-145) L 04/18/22 04:03 Potassium 4.1 mmol/L (3.5-5.1) 04/18/22 04:03 Chloride 95 mmol/L (98-107) L 04/18/22 04:03 Carbon Dioxide 30 mmol/L (22-29) H 04/18/22 04:03 Anion Gap 9.1 (5-19) 04/18/22 04:03 BUN 20 mg/dL (8-23) 04/18/22 04:03 Creatinine 0.7 mg/dL (0.5-0.9) 04/18/22 04:03 GFR Calculation 84.5 mL/min (90-130) L 04/18/22 04:03 Glucose 88 mg/dL (65-115) 04/18/22 04:03 Calculated Osmolality 272 mOsm/kg (285-295) L 04/18/22 04:03 Calcium 7.6 mg/dL (8.5-10.5) L 04/18/22 04:03 Total Bilirubin 0.4 mg/dL (0.15-1.2) 04/18/22 04:03 AST 11 U/L (0-32) 04/18/22 04:03 ALT 7 U/L (0-33) 04/18/22 04:03 Alkaline Phosphatase 63 IU/L (35-105) 04/18/22 04:03 Total Protein 5.2 g/dL (6.6-8.7) L 04/18/22 04:03 Albumin 2.1 g/dL (3.5-5.2) L 04/18/22 04:03 Globulin 3.1 g/dL (1.3-4.6) 04/18/22 04:03 Vitals Last Vital Signs Temp 98.3 F 04/17/22 11:04 Pulse 95 04/18/22 07:51 Resp 18 04/18/22 10:49 BP 96/55 04/17/22 17:41 Pulse Ox 99 04/18/22 10:49 Discharge Plan Discharge Patient Disposition: Hospice - Home Condition: Stable Prescriptions: Continued venlafaxine [Effexor XR] 150 mg capsule,extended release 24hr 150 mg PO BEDTIME 0RF Xarelto 20 mg tablet 20 mg PO DAILY 0RF Hold Instructions: Resume on 11/26/21. morphine 30 mg tablet 30 mg PO Q2H PRN (Reason: Pain) 0RF pantoprazole [Protonix] 40 mg tablet,delayed release (DR/EC) 40 mg PO DAILY 30 Days Qty: 30 2RF levothyroxine [Synthroid] 50 mcg tablet 50 mcg PO DAILY Qty: 90 3RF pregabalin [Lyrica] 150 mg capsule 150 mg PO TID 0RF ondansetron HCl 4 mg tablet 4 mg PO Q4H PRN (Reason: Nausea) 0RF albuterol sulfate 90 mcg/actuation HFA aerosol inhaler 2 puff INHALATION Q6H PRN (Reason: Shortness Of Breath) 0RF trazodone 150 mg Tablet 150 mg PO BEDTIME 0RF fentanyl 100 mcg/hr patch 72 hour 1 patch topical Q72H 0RF fentanyl 50 mcg/hr Patch 72 Hour 1 patch TRANSDERMAL Q72H 0RF simethicone 180 mg Capsule 180 - 360 mg PO DAILY PRN (Reason: Heartburn) 0RF famotidine 20 mg tablet 20 mg PO DAILY 0RF lorazepam 0.5 mg Tablet 0.5 mg PO Q4H PRN (Reason: Anxiety) 0RF dexamethasone 4 mg tablet 4 mg PO BID 0RF Rx Instructions: x 14 days aspirin 81 mg Tablet,Chewable 81 mg PO DAILY 0RF Miralax 17 gram/dose Powder 17 g PO DAILY PRN (Reason: Constipation) 0RF Macrobid 100 mg Capsule 100 mg PO BID 0RF Rx Instructions: must administer with a meal/food lactulose 20 gram/30 mL Solution 20 g PO DAILY PRN (Reason: Constipation) 0RF Discontinued enalapril maleate [Vasotec] 10 mg tablet 10 mg PO BID 0RF Discharge Diet: Cardiac Discharge Activity: Bedrest Patient Instructions: Opioid Safety Discharge Attestations Time Spent in Discharge Care*: less than 30 min Status at Discharge: Cognitive status at discharge: cognitively intact , Behavioral status at discharge: cooperative , Quality Metrics Clinical Quality Measures [ No reported AMI, CVA or VTE this stay] Coding Level of Care Code Acute [facility] DC note Diagnoses Closed tibial fracture S82.209A Closed fibular fracture S82.409A
[2022-04-18] MEDS: morphine IR 15 mg Tablet 30 MG PO ×2 (13:52→17:17)
[2022-04-18 17:13] LABS: Glucose Point of Care 98 mg/dL (70-110)
== END 2022-04-18 17:55 | disposition hospice, home (50) | DRG 563 ==
LOC: ER 12:26 → MEDSURG 17:58
PROVIDERS: Admitting Provider Internal Medicine; Emergency Provider Emergency Medicine; Visit Provider Internal Medicine
DX: S82.101A Unspecified fracture of upper end of right tibia, initial encounter for closed fracture (principal); C56.1 Malignant neoplasm of right ovary; E46 Unspecified protein-calorie malnutrition; S82.401A Unspecified fracture of shaft of right fibula, initial encounter for closed fracture; W01.0XXA Fall on same level from slipping, tripping and stumbling without subsequent striking against object, initial encounter; G89.29 Other chronic pain; J44.9 Chronic obstructive pulmonary disease, unspecified; Z99.81 Dependence on supplemental oxygen; F32.A Depression, unspecified; Z86.718 Personal history of other venous thrombosis and embolism; E03.9 Hypothyroidism, unspecified; Z87.01 Personal history of pneumonia (recurrent); Z87.440 Personal history of urinary (tract) infections; F17.210 Nicotine dependence, cigarettes, uncomplicated; Z68.24 Body mass index [BMI] 24.0-24.9, adult
CPT/HCPCS: 36415; 36416; 73502; 73560; 73590; 80053; 82962; 85025; 96374; 96375; 99285; J1170; J1650; J2270